=== PATIENT | male | born 1970 | race Caucasian/White ===

== ENCOUNTER 2018-01-24 22:58 | Emergency (ER) | payer MEDICARE, SELFPAY ==
[2018-01-24 22:59] VITALS: BP 179/102
[2018-01-24 23:01] VITALS: BP 162/96; PULSE 127; RESP 22; TEMP 37.4; O2SAT 92; BMI 47.7
[2018-01-24 23:06] VITALS: O2SAT 92
--- NOTE | 2018-01-24 23:15 | EKG12_ITS ---
Test Reason : SOB Blood Pressure : / mmHG Vent. Rate : 108 BPM Atrial Rate : 108 BPM P-R Int : 136 ms QRS Dur : 136 ms QT Int : 364 ms P-R-T Axes : 062 116 026 degrees QTc Int : 487 ms Sinus tachycardia Right bundle branch block Left posterior fascicular block Bifascicular block Septal infarct , age undetermined Abnormal ECG Confirmed by INES STEVENS, ADRY ([id number]), editor news ABRIL SOTO ([id number]) on 01/29/2018 2:47:48 PM Referred By: DR CLIFFORD Confirmed By:ADRY CHACON MD
--- NOTE | 2018-01-24 23:17 | RAD_ITS ---
STUDY: X-RAY CHEST REASON FOR EXAM: Male, 47 years old. Shortness of breath TECHNIQUE: A single frontal view of the chest was obtained. COMPARISON: November 16, 2017 FINDINGS: The lungs are adequately aerated. There are no focal airspace opacities. There is no demonstrated pleural abnormality. The cardiac silhouette is normal in size. The mediastinum and hilar regions are unremarkable. Normal visualized pulmonary arteries. Normal visualized aortic arch and descending thoracic aorta. The thoracic spine is unremarkable. The visualized ribs, clavicles, and shoulders are unremarkable. There is no demonstrated abnormality of the visualized upper abdomen. RAD/Chest 1 View (Portable) IMPRESSION: No acute cardiopulmonary abnormalities or changes. Electronically Signed: Jacque Benz MD at 23:34 EST Tel Direct: [phone], Service support ,
[2018-01-24] MEDS: MethylPREDNISolone 125 MG/2 ML Vial IV (23:37)
[2018-01-24 23:46] LABS: Absolute Lymphocyte Count 2.39 X10^3/ul (0.83-4.51); Absolute Neutrophil Count 10.1 X10^3/uL (2.0-7.7); Basophil# 0.04 X10^3/uL; Basophil% 0.3 % (0-1); Eosinophil# 0.44 X10^3/uL; Eosinophils% 3.1 % (0-5); Hemoglobin 14.5 g/dl (13.0-16.5); Lymphocyte # 2.39 X10^3/ul (4.0); Lymphocyte % 16.9 % (19-41); Mean Corp Hgb Conc 31.5 g/gl (32-36); Mean Corpuscular Hgb 31.9 pg (27.0-32.0); Mean Corpuscular Volume 101.3 fL (80-94); Mean Platelet Vol. 10.4 fl (6.2-12.0); Monocyte# 1.01 X10^3/uL; Monocyte% 7.1 % (0-10); Neutrophil # 10.12 X10^3/uL (2.7-7.7); Neutrophil % 71.5 % (47-70); POSITIVE COUNT NO; POSITIVE DIFFERENTIAL NO; POSITIVE MORPHOLOGY NO; Platelet Count 205 K/mm3 (150-450); RBC Distribution Width CV 14.9 % (11.6-14.6); RBC Distribution Width SD 54.8 fl (35.1-43.9); Red Blood Count 4.54 M/mm3 (4.6-6.2); White Blood Count 14.2 K/mm3 (4.4-11.0)
--- NOTE | 2018-01-25 | ED.RN ---
dr foster notified of critical d-dimer 0.70
[2018-01-25 00:02] LABS: Anion Gap 5 (5-15); BUN 11 mg/dL (7-18); BUN/Creat Ratio 13.8 RATIO (10-20); Calcium,Total 8.8 mg/dL (8.5-10.1); Chloride 102 mmol/L (98-107); EST Glomerular Filtration Rate 109 mL/min (>60); Est Glom Filt Rate - Afr Amer 132 mL/min (>60); Estimated Creatinine Clearance 118.96 ml/min; Glucose 124 mg/dL (74-106); Potassium 4.3 mmol/L (3.5-5.1); Sodium Level 138 mmol/L (136-145)
--- NOTE | 2018-01-25 00:05 | CT_ITS ---
STUDY: CTA CHEST REASON FOR EXAM: Male, 47 years old. Shortness of breath and hypertension. Elevated d-dimer. RADIATION DOSAGE (If Supplied By Facility): CTDIvol = ( 16.73 ) mGy, DLP = ( 809.73 ) mGycm TECHNIQUE: The examination was performed with the intravenous administration of 100ML ml of Isovue 370 contrast material. Post-processing of the angiographic images was performed, with multiplanar reformation and 3D reconstruction. Individualized dose optimization techniques were used for this CT. COMPARISON: None. FINDINGS: Normal enhancement of the main pulmonary artery and right and left pulmonary arteries. Normal enhancement of the bilateral peripheral pulmonary arteries. There is no demonstrated pulmonary embolism. Normal thoracic aorta and visualized great vessels. There is no demonstrated aortic dissection. Normal heart and pericardium. Normal mediastinum. Normal hilar regions. Normal visualized trachea and bronchi. The lungs are well expanded. Normal pulmonary parenchyma. Normal pleura. Normal chest wall structures. The osseous structures are essentially unremarkable. Normal visualized upper abdomen. CT/CTA Chest W/WO Contrast IMPRESSION: Normal CTA chest examination, without a demonstrated pulmonary embolism or aortic dissection. No infiltrate is seen. Electronically Signed: Rafa Quiros MD at 1:20 EST Tel , Service support ,
[2018-01-25 00:14] VITALS: BP 138/95; PULSE 108; RESP 24; O2SAT 96
--- NOTE | 2018-01-25 01:48 | ED.VISSUMM ---
- ER Visit Summary Date of Service: 01/25/18 Chief Complaint: Shortness of breath History of Present Illness: The patient is a 47 M with history of COPD flare. Patient states tonight he was short of breath and wheezing. His finger pulse ox at home read a heart rate in the 160s and an SPO2 in the 40s. states that he looked blue and was sweaty. Patient reports improvement at this time. He did breathing treatments at home and states his breathing was improved before EMS arrived. He did not have chest pain with this episode. Patient states that the squad one bring him in because his blood pressure was elevated. Past history significant for asthma, COPD, hypertension, pulmonary hypertension, anxiety, depression, and prior PE. Patient does use home oxygen as needed. He has not had recent fever. Physical Examination: Blood pressure is 162/96, temperature 99.4, heart rate 127, respiratory rate 22, pulse ox 92% on room air. He is 94% on 3 L at the time of my examination. Head and neck examination is unremarkable. Heart is tachycardic and regular. Lung sounds are slightly diminished throughout. I do not appreciate any wheezing at this time. Abdomen is soft nontender. Palpable pulses are noted throughout. Test Results: Portable chest x-ray reveals no acute changes. EKG is sinus tach at 108 with a bifascicular block. This is unchanged when compared to prior study of 11/16/2017. CBC reveals a white count of 14.2 otherwise normal. Chemistry studies are significant only for glucose of 124. Troponin is less than 0.02 and d-dimer slightly elevated at 0.70. CTA of the chest was obtained that shows no evidence of PE, dissection, or infiltrate. Emergency Department Course and Treatment: Patient was given a dose of IV Solu-Medrol here. He denied the need for further breathing treatments at this time stating his breathing was back to baseline. On repeat evaluation is resting comfortably. Heart rate is down to 100. Blood pressure is still elevated but the patient now tells me he was due for 2 of his blood pressure medications a couple hours ago. He is given his evening dose of Lopressor and Spironolactone prior to discharge. Treatment Plan: [] Disposition: Discharge Impression: COPD exacerbation This note was generated with [employer] dictation software. It may contain incorrect words, spelling, and punctuation that were not noted in review of the chart prior to signing ED Disposition - Plan for ED Patient: Disposition: Home or Assisted Living Chief Complaint: Shortness of Breath Instructions: ED COPD Flare Prescriptions: Prednisone 10 mg PO DAILY #63 tablet Referrals: Yumi Peralta MD [Primary Care Provider] - 3-5 Days if not improving
[2018-01-25] MEDS: Metoprolol Tartrate 25 MG Tablet PO (02:08)
[2018-01-25] MEDS: Spironolactone 25 MG Tablet PO (02:08)
[2018-01-25 02:12] VITALS: BP 192/112; PULSE 101; RESP 20; O2SAT 94
== END 2018-01-25 02:13 | disposition home or self-care (01) ==
PROVIDERS: Emergency Provider Emergency Medicine; Family Provider Family Medicine; PCP Family Medicine
DX: J44.1 Chronic obstructive pulmonary disease with (acute) exacerbation (principal); I10 Essential (primary) hypertension; I27.20 Pulmonary hypertension, unspecified; Z86.711 Personal history of pulmonary embolism; Z99.81 Dependence on supplemental oxygen; E66.9 Obesity, unspecified; Z68.42 Body mass index [BMI] 45.0-49.9, adult; Z87.891 Personal history of nicotine dependence; Z79.899 Other long term (current) drug therapy; Z79.82 Long term (current) use of aspirin
CPT/HCPCS: 71045; 71275; 80048; 84484; 85025; 85379; 93005; 96374; 99285; Q9967; A4216

== ENCOUNTER → 2018-06-17 10:48 | Outpatient (CLI) | payer MEDICARE, SELFPAY ==
[2018-06-17 11:35] VITALS: PULSE 101; PULSE 107; PULSE 108; PULSE 112; PULSE 114; PULSE 121; PULSE 92; PULSE 98; O2SAT 85; O2SAT 87; O2SAT 90; O2SAT 91; O2SAT 92; O2SAT 94; O2SAT 96
--- NOTE | 2018-06-17 11:40 | CPS ---
Patient wears 3 lpm pulse dose at home when ambulating. Started testing on room air SpO2 91%. SpO2 85% by the first minute, stopped patient and placed on 3lpm pulse dose, patient recovered quickly to 91%. 3rd minute SpO2 87%, patient turned tank up to 4 lpm pulse dose and walked the remainder of the test with SpO2 >89%. Patient recovered at the end to 96% which he then turned his tank back down to 3 lpm pulse dose due to being a CO2 retainer. Patient seems very knowledgeable about his SpO2 levels and regulation of O2 when needed. Patient's heart rate also climbed to 136 after he stopped walking and then recovered to 101.
--- NOTE | 2018-06-17 15:10 | WT_ITS ---
PSN 6 Minute Walk Test - 6 Minute Walk Test 6 Minute Walk Test: 6 Minute Walk Test PSN:6-Minute Walk Test Start: 06/17/18 11: 34 Freq: Status: Active Protocol: RESP.6MINW Document 06/17/18 11:35 RADHA (Rec: 06/17/18 11:37 RADHA [id number]) 6 Minute Walk Test Date Performed 06/17/18 Time Performed 11:15 Height 6 ft Weight: 158.757 kg Weight in Pounds 350.[address]: Tay Benavides Assistive device used: None Pre-test Oxygen Delivery Method Room Air Pulse Ox (%) 91 Pulse Rate (60-100 beats/min) 98 Dyspnea Emmy Scale (0-10) 0 Exertion Emmy Scale (6-20) 6 1st minute Oxygen Delivery Method Room Air Pulse Ox (%) 85 Pulse Rate (60-100 beats/min) 107 H 2nd minute Oxygen Flow Rate (L/min) (L/min) 3 Oxygen Delivery Method Nasal Cannula Pulse Ox (%) 90 Pulse Rate (60-100 beats/min) 92 3rd minute Oxygen Flow Rate (L/min) (L/min) 3 Oxygen Delivery Method Nasal Cannula Pulse Ox (%) 87 Pulse Rate (60-100 beats/min) 114 H 4th minute Oxygen Flow Rate (L/min) (L/min) 4 Oxygen Delivery Method Nasal Cannula Pulse Ox (%) 94 Pulse Rate (60-100 beats/min) 112 H 5th minute Oxygen Flow Rate (L/min) (L/min) 4 Oxygen Delivery Method Nasal Cannula Pulse Ox (%) 92 Pulse Rate (60-100 beats/min) 108 H 6th minute Oxygen Flow Rate (L/min) (L/min) 4 Oxygen Delivery Method Nasal Cannula Pulse Ox (%) 91 Pulse Rate (60-100 beats/min) 121 H Dyspnea Emmy Scale (0-10) 3 Exertion Emmy Scale (6-20) 12 Post-test Oxygen Flow Rate (L/min) (L/min) 4 Oxygen Delivery Method Nasal Cannula Pulse Ox (%) 96 Pulse Rate (60-100 beats/min) 101 H Full Laps Walked 15 Partial Lap, Number of Tiles Walked 10 Total Distance Walked (ft) 895 06/17/18 11:40 Cardiopulmonary Services by Dorota Guzman Patient wears 3 lpm pulse dose at home when ambulating. Started testing on room air SpO2 91%. SpO2 85% by the first minute, stopped patient and placed on 3lpm pulse dose, patient recovered quickly to 91%. 3rd minute SpO2 87%, patient turned tank up to 4 lpm pulse dose and walked the remainder of the test with SpO2 >89%. Patient recovered at the end to 96% which he then turned his tank back down to 3 lpm pulse dose due to being a CO2 retainer. Patient seems very knowledgeable about his SpO2 levels and regulation of O2 when needed. Patient's heart rate also climbed to 136 after he stopped walking and then recovered to 101. Initialized on 06/17/18 11:40 - END OF NOTE - Interpretation Interpretation: The patient was able to ambulate a total of 895 feet over the course of 6 minutes with no assistance or breaks. The patient was noted to be 91% on room air, but desaturated to 85% in the first minute. The patient required a total of 4 L pulse dose to maintain acceptable saturations throughout ambulation. Patient did have significant tachycardia with a peak heart rate of 121 bpm. These findings are consistent with a respiratory limitation exercise tolerance. - Recommendations Recommendations: The patient requires no supplemental oxygen at rest, but should be using 4 L pulse dose with any ambulation.
== END ==
LOC: PSN 10:49
PROVIDERS: Family Provider Family Medicine; PCP Family Medicine; Visit Provider Internal Medicine Critical Care Medicine
DX: J96.01 Acute respiratory failure with hypoxia (principal); J96.02 Acute respiratory failure with hypercapnia
CPT/HCPCS: 94618

== ENCOUNTER → 2018-06-21 07:50 | Outpatient (CLI) | payer MEDICARE, SELFPAY ==
--- NOTE | 2018-06-21 15:26 | PFTCOMP_ITS ---
COMPLETE PULMONARY FUNCTION TEST INTERPRETATION Brief HPI: Patient is a 47 year old male, currently under the care of myself, who presents to [facility] for complete pulmonary function tests secondary to diagnosis of respiratory failure. Respiratory therapist reports good effort and reproducible results. Interpretation: Forced expiration spirometry shows a very severe large airways obstructive ventilatory defect with an FEV1 of 23% predicted. There is no significant bronchodilator response by ATS criteria. Spirograms are of good quality and plateau slowly, indicating slowly emptying areas of the lungs. The respiratory flow volume loop shows decreased expiratory flow rates at all lung volumes consistent with airway obstruction. Lung volumes by body plethysmography show a decreased total lung capacity at 5.47 L, 75% predicted. FRC and RV are elevated out of proportion. Lung volume measurements are consistent with air-trapping. Diffusion capacity by carbon monoxide is decreased at 51% predicted. The airway resistance is elevated. Compared to previous pulmonary function tests from July 28, 2016, there has been no significant change. Impression: Irreversible very severe mixed ventilatory defect with no significant ticket dispenser changer the last 2 years.
== END ==
LOC: PSN 07:51
PROVIDERS: Family Provider Family Medicine; PCP Family Medicine; Visit Provider Internal Medicine Critical Care Medicine
DX: J96.01 Acute respiratory failure with hypoxia (principal); J96.02 Acute respiratory failure with hypercapnia
CPT/HCPCS: 94060; 94726; 94729

== ENCOUNTER 2018-09-18 05:24 | Day surgery (SDC) | payer MEDICARE, SELFPAY ==
--- NOTE | 2018-09-16 12:54 | EKG12_ITS ---
Test Reason : PREOP Blood Pressure : / mmHG Vent. Rate : 085 BPM Atrial Rate : 085 BPM P-R Int : 160 ms QRS Dur : 128 ms QT Int : 380 ms P-R-T Axes : 072 093 050 degrees QTc Int : 452 ms Normal sinus rhythm Right bundle branch block Septal infarct , age undetermined, cannot be excluded Abnormal ECG Confirmed by JOHNIE STEVENS, KANDACE ([id number]), make up editor ABRIL SOTO ([id number]) on 09/18/2018 1:36:42 PM Referred By: Gagan Andino Confirmed By:KANDACE JETT MD
--- NOTE | 2018-09-16 13:15 | RAD_ITS ---
STUDY: X-RAY CHEST REASON FOR EXAM: Male, 47 years old. Preoperative evaluation. TECHNIQUE: PA and lateral views of the chest. COMPARISON: Comparison is made with prior examination dated January 24, 2018. FINDINGS: Hyperinflation. There is no demonstrated pleural abnormality. Normal size heart. Normal mediastinum and lani. There is prominence of the pulmonary hilar arteries without peripheral pulmonary vascular congestion, suggesting pulmonary hypertension. Normal visualized aortic arch and descending thoracic aorta. There is demineralization of the osseous structures. Normal visualized ribs, clavicles, and shoulders. There is no demonstrated abnormality of the visualized soft tissue structures of the upper abdomen. RAD/Chest PA and Lateral IMPRESSION: Hyperinflation. Prominence of the central pulmonary arteries. Electronically Signed: Arsenio Funk MD at 13:39 EDT Tel [phone], Service support ,
[2018-09-16 13:30] LABS: Hematocrit 52.8 % (40-54); Hemoglobin 16.7 g/dl (13.0-16.5); Mean Corp Hgb Conc 31.6 g/gl (32-36); Mean Corpuscular Hgb 32.2 pg (27.0-32.0); Mean Corpuscular Volume 101.9 fL (80-94); Mean Platelet Vol. 10.8 fl (6.2-12.0); Platelet Count 197 K/mm3 (150-450); RBC Distribution Width CV 13.8 % (11.6-14.6); RBC Distribution Width SD 51.9 fl (35.1-43.9); Red Blood Count 5.18 M/mm3 (4.6-6.2); White Blood Count 12.7 K/mm3 (4.4-11.0)
[2018-09-16 13:42] LABS: Anion Gap 6 (5-15); BUN 12 mg/dL (7-18); BUN/Creat Ratio 15.3 RATIO (10-20); Calcium,Total 8.8 mg/dL (8.5-10.1); Chloride 98 mmol/L (98-107); Creatinine, Serum 0.78 mg/dL (0.70-1.30); EST Glomerular Filtration Rate 111 mL/min (>60); Est Glom Filt Rate - Afr Amer 135 mL/min (>60); Glucose 84 mg/dL (74-106); Potassium 4.3 mmol/L (3.5-5.1); Sodium Level 138 mmol/L (136-145)
[2018-09-16 13:45] LABS: Scan Indicated on CBC? Y/N NO
--- NOTE | 2018-09-18 | HERN_PTH ---
PATIENT: HARJIT ALBERTS LOC: [facility] [place] U#:[id number] AGE/SX: 47/M ROOM: RE09/18/[address]: Dr. Gagan Andino MD : [id number] BED: DIS: 09/18/2018 SPEC #: [id number] RECD: 09/18/18 11:42 STATUS: YAMILKA EMILE #: [id number] PURNIMA: 09/18/18 00:[address]: Gagan Andino DEPT: SURGICAL PATHOLOGY RECD BY: Casa Garcia ENTERED: 09/19/18 06:51 SP TYPE: Hernia OTHR DR: MD Dr. Yumi Alonzo MD Tissues: HERNIA Procedures: Surgery Specimen Level II HEADER OPERATION: Umbilical hernia with mesh PRE-OP DIAGNOSIS: Incarcerated umbilical hernia TISSUE SUBMITTED: Umbilical hernia sac and contents MICROSCOPIC DIAGNOSIS Umbilical hernia sac and contents: A piece of adipose tissue including omentum, consistent with hernia sac and contents with focal areas of fat necrosis and reactive changes. LOREE:khari 09/19/18 MICROSCOPIC DESCRIPTION Slides are reviewed. GROSS DESCRIPTION Received in fixative is one container labeled with the patient's name and designated umbilical hernia sac and contents. The specimen consists of a piece of yellow adipose tissue measuring 7 x 5 x 3.5 cm. A focal area of adipose tissue is consistent with omentum. The focal area shows indurated cut surfaces consistent with fat necrosis. This indurated nodule measures 3.5 cm in greatest dimension. Sections of the omental tissue do not reveal any mass lesion. Hand Stamper sections are submitted in five cassettes as follows: 1-3 - area consistent with fat necrosis, 4 - omentum, 5 - fraud representative section from the other area. / LOREE:khari 09/18/18 TC:5 [facility]: [id number]
[2018-09-18 05:48] VITALS: BP 137/78; PULSE 78; RESP 18; TEMP 36.9; O2SAT 94; BMI 45.8
--- NOTE | 2018-09-18 06:59 | PCM.DC.GS ---
Discharge Diet: Light diet - advance as tolerated - if you have questions about your diet instructions, please talk to you doctor. Discharge Activity: May Not Drive - for 1 week or while taking narcotic pain medicine. May shower in (days): 1 Lifting Restrictions: 10 pounds Call your doctor if your incision/area has: Continuous Slow Oozing, Sudden Increased Bleeding, Increased Pain/ Swelling, Increased Redness, Foul Smelling Discharge Call your doctor if you observe: Fever of 101 or Higher Suture Line Care: Avoid Pulling/Pushing, Avoid Pinching/Bending Additional Dressing/Incision Instructions:: Change or remove dressing in 4 days. Leave steri-strips in place for 1 week. Allergies/Adverse Reactions: Allergies clarithromycin [From Biaxin] Allergy (Verified 09/13/18 15:11) Hives Penicillins Allergy (Verified 09/13/18 15:11) Hives Medications to take at Discharge Aspirin [Aspirin, Baby] 81 mg PO DAILY 12/02/15 Furosemide [Lasix] 40 mg PO DAILY 12/02/15 Spironolactone [Aldactone] 25 mg PO BID 12/02/15 Cyanocobalamin (Vitamin B-12) [Vitamin B12] 1,000 mcg PO DAILY 07/29/17 Cholecalciferol (Vitamin D3) [Vitamin D3] 5,000 unit PO X1 11/16/17 Multivitamin [Multiple Vitamins] 1 ea PO DAILY 11/16/17 loratadine 10 mg tablet 10 mg PO QDAY #90 tab 12/07/17 albuterol sulfate HFA 90 mcg/actuation aerosol inhaler 2 puff INHALATION Q4H PRN #18 g 01/30/18 tiotropium bromide 18 mcg capsule with inhalation device 18 mcg INHALATION PRN PRN 02/21/18 ipratropium-albuterol 0.5 mg-3 mg(2.5 mg base)/3 mL nebulization soln 3 ml INHALATION Q6HWA.RT #180 vial 04/25/18 montelukast 10 mg tablet 10 mg PO QPM #30 tab 05/24/18 albuterol sulfate 2.5 mg/3 mL (0.083 %) solution for nebulization 2.5 mg INHALATION Q4H PRN #180 ml 07/04/18 budesonide-formoterol HFA 160 mcg-4.5 mcg/actuation aerosol inhaler 2 puff INHALATION BID #3 device 08/26/18 metoprolol tartrate 25 mg tablet 25 mg PO 1830 tab 09/11/18 Guaifenesin [Guaifenesin ER] 1,200 mg PO Q12H PRN 09/13/18 Metoprolol Succinate 50 mg PO 0600 09/13/18 Prednisone 40 mg PO DAILY PRN 09/13/18 Hydrocodone Bitart/Apap 5-325 [Purlear 5MG-325MG] 1 tablet PO Q4H PRN PRN 3 Days #10 tablet 09/18/18 Nystatin Powder [Mycostatin Powder] 1 applic TOPICAL BID #1 bottle 09/18/18 The following prescriptions were given: Hydrocodone Bitart/Apap 5-325 [Purlear 5MG-325MG] 1 tablet PO Q4H PRN PRN 3 Days #10 tablet PRN Reason: Pain Nystatin Powder [Mycostatin Powder] 1 applic TOPICAL BID #1 bottle Primary Care Physician: Yumi Peralta MD [Primary Care Provider] - Test Results: Test results from this visit will be discussed in further detail at your follow-up appointment, if applicable. Please Follow Up With: Gagan Andino MD - [phone] When: Call to make an appointment to be seen in about 10 days.
--- NOTE | 2018-09-18 08:12 | PCM.OPRPT ---
Problem List (1) Incarcerated umbilical hernia Status: Acute Report of Operation Date of Procedure: 09/18/18 Pre-Operative Diagnosis: Incarcerated umbilical hernia Post-Operative Diagnosis: Same Surgery/Procedure Performed:: Umbilical herniorrhaphy with 8 cm Ventralex mesh Description of Surgical Findings:: Timeout and informed consent was obtained. 47-year-old gent was taken to the operating. He was placed on the table. He underwent general endotracheal intubation anesthesia. The abdomen sterilely prepped and draped. Clindamycin 900 mg given intravenously preoperatively. A transverse incision was made superior to the umbilicus sharp dissection carried down to Humphrey tissue that was densely incarcerated omentum within the umbilical hernia the sac was opened and the omentum out of be partially transected using 0 Vicryl ligatures. Patient is morbidly obese with a BMI of 45. Significant amount of fibrofatty tissue was encountered. Were needed hemostasis was stained with electrocautery and 3-0 Vicryl ligatures. The defect measures approximately 3 cm diameter. A 8 cm ventral X mesh was inserted. Lot number [id number]. Reference #[id number]. Expiry date 05/23/2020. Placed nicely within the abdomen seem to unfurl nicely. The tails were secured with interrupted 0 Nurolon. The fascia was closed with simple sutures of the same. Skin edges and subdermal tissues were approximated interrupted 4-0 Monocryl in a running septic or 4-0 Monocryl. Steri-Strips Telfa and OpSite dressings applied. The dragan-incisional area was anesthetized with 30 cc of 0.5% Marcaine. Sponge instrument and needle counts were reported to the surgeon be correct. Blood loss was minimal. He tolerated the procedure well was taken to the recovery area in sagittal condition without apparent complication. Specimens incarcerated hernia sac and contents. Drains none. Blood loss minimal. Gagan Andino M.D., F.A.C.S. Type of Anesthesia:: General Anesthesiologist: Nancy Mccartney
[2018-09-18] MEDS: Bupivacaine 0.5% PF 10 ML VIAL (08:14)
[2018-09-18 08:39] VITALS: BP 137/78; BP 138/88; PULSE 83; RESP 14; TEMP 36.5; O2SAT 91
[2018-09-18 09:00] VITALS: BP 128/88; BP 137/78; PULSE 79; RESP 18; O2SAT 92
[2018-09-18 09:13] VITALS: BP 129/85; BP 137/78; PULSE 79; RESP 18; O2SAT 92
[2018-09-18 09:30] VITALS: BP 136/83; BP 137/78; PULSE 79; RESP 18; TEMP 36.4; O2SAT 94
[2018-09-18] MEDS: HYDROcodone Bitartrate/Apap 5/325 Tablet PO (11:13)
[2018-09-18 12:35] VITALS: BP 137/78; BP 142/87; PULSE 78; RESP 16; TEMP 36.8; O2SAT 93
== END 2018-09-18 12:45 | disposition home or self-care (01) ==
LOC: SDC 05:25 → AC 05:28
PROVIDERS: Family Provider Family Medicine; PCP Family Medicine; Referring Provider Surgery; Visit Provider Surgery
PROC: (CPT 49587; principal; 2018-09-18 07:00)
DX: K42.0 Umbilical hernia with obstruction, without gangrene (principal); D75.1 Secondary polycythemia; I11.0 Hypertensive heart disease with heart failure; I50.9 Heart failure, unspecified; I45.10 Unspecified right bundle-branch block; I27.20 Pulmonary hypertension, unspecified; J43.9 Emphysema, unspecified; J96.21 Acute and chronic respiratory failure with hypoxia; J96.22 Acute and chronic respiratory failure with hypercapnia; J30.2 Other seasonal allergic rhinitis; G47.33 Obstructive sleep apnea (adult) (pediatric); E66.01 Morbid (severe) obesity due to excess calories; Z68.42 Body mass index [BMI] 45.0-49.9, adult; Z99.81 Dependence on supplemental oxygen; Z79.82 Long term (current) use of aspirin; Z79.899 Other long term (current) drug therapy; Z87.891 Personal history of nicotine dependence
CPT/HCPCS: 00750; 49587; 36415; 71046; 80048; 85027; 88302; 93005; J7120; C1781; J2405

== ENCOUNTER → 2018-10-14 14:22 | Outpatient (CLI) | payer MEDICARE, SELFPAY ==
[2018-10-21 16:12] LABS: Immunoglobulin E 269 IU/mL (0-100)
[2018-10-23 03:07] LABS: Bermuda Grass <0.10 kU/L (Class 0); Cat Hair/Dander, Standard <0.10 kU/L (Class 0); D farinae Mite 0.74 kU/L (Class II); Dog Epithelia <0.10 kU/L (Class 0); Elm, American White <0.10 kU/L (Class 0); Mouse Urine <0.10 kU/L (Class 0); Oak, White <0.10 kU/L (Class 0); Plantain, English 0.13 kU/L (Class 0/I)
== END ==
PROVIDERS: Family Provider Family Medicine; PCP Family Medicine; Referring Provider Nurse Practitioner Acute Care; Visit Provider Nurse Practitioner Acute Care
DX: J44.1 Chronic obstructive pulmonary disease with (acute) exacerbation (principal)
CPT/HCPCS: 36415; 82785; 86003; 87070; 87205

== ENCOUNTER → 2018-10-29 11:40 | Outpatient (CLI) | payer MEDICARE, SELFPAY ==
[2018-10-29 09:47] VITALS: BMI 45.6
[2018-10-29 12:22] LABS: Absolute Lymphocyte Count 2.31 X10^3/ul (0.83-4.51); Absolute Neutrophil Count 8.3 X10^3/uL (2.0-7.7); Basophil# 0.05 X10^3/uL; Basophil% 0.4 % (0-1); Eosinophil# 0.39 X10^3/uL; Eosinophils% 3.2 % (0-5); Hematocrit 53.6 % (40-54); Hemoglobin 17.4 g/dl (13.0-16.5); Lymphocyte # 2.31 X10^3/ul (4.0); Lymphocyte % 19.2 % (19-41); Mean Corp Hgb Conc 32.5 g/gl (32-36); Mean Corpuscular Hgb 32.6 pg (27.0-32.0); Mean Corpuscular Volume 100.4 fL (80-94); Mean Platelet Vol. 10.8 fl (6.2-12.0); Monocyte# 0.92 X10^3/uL; Monocyte% 7.7 % (0-10); Neutrophil # 8.28 X10^3/uL (2.7-7.7); Platelet Count 191 K/mm3 (150-450); RBC Distribution Width CV 13.6 % (11.6-14.6); RBC Distribution Width SD 50.4 fl (35.1-43.9); Red Blood Count 5.34 M/mm3 (4.6-6.2)
[2018-10-29 12:26] LABS: POSITIVE COUNT NO; POSITIVE DIFFERENTIAL NO; POSITIVE MORPHOLOGY NO
== END ==
PROVIDERS: Family Provider Family Medicine; PCP Family Medicine; Referring Provider Nurse Practitioner Acute Care; Visit Provider Nurse Practitioner Acute Care
DX: R05 Cough (principal)
CPT/HCPCS: 36415; 85025

== ENCOUNTER → 2019-04-10 13:35 | Outpatient (CLI) | payer MEDICARE, SELFPAY ==
[2019-04-10 12:34] VITALS: BMI 44.3
[2019-04-10 15:20] LABS: Absolute Lymphocyte Count 2.25 X10^3/ul (0.83-4.51); Absolute Neutrophil Count 9.3 X10^3/uL (2.0-7.7); Basophil# 0.05 X10^3/uL; Basophil% 0.4 % (0-1); Eosinophil# 0.41 X10^3/uL; Eosinophils% 3.1 % (0-5); Hematocrit 49.9 % (40-54); Hemoglobin 16.4 g/dl (13.0-16.5); Lymphocyte # 2.25 X10^3/ul (4.0); Lymphocyte % 17.3 % (19-41); Mean Corp Hgb Conc 32.9 g/gl (32-36); Mean Corpuscular Hgb 32.7 pg (27.0-32.0); Mean Corpuscular Volume 99.4 fL (80-94); Mean Platelet Vol. 11.1 fl (6.2-12.0); Monocyte# 1.03 X10^3/uL; Monocyte% 7.9 % (0-10); Neutrophil # 9.25 X10^3/uL (2.7-7.7); Neutrophil % 70.9 % (47-70); Platelet Count 229 K/mm3 (150-450); RBC Distribution Width CV 13.6 % (11.6-14.6); RBC Distribution Width SD 49.6 fl (35.1-43.9); Red Blood Count 5.02 M/mm3 (4.6-6.2)
[2019-04-10 16:07] LABS: POSITIVE COUNT NO; POSITIVE DIFFERENTIAL NO; POSITIVE MORPHOLOGY NO
== END ==
PROVIDERS: Family Provider Family Medicine; PCP Family Medicine; Referring Provider Nurse Practitioner Acute Care; Visit Provider Nurse Practitioner Acute Care
DX: R05 Cough (principal)
CPT/HCPCS: 36415; 85025

== ENCOUNTER → 2019-08-08 09:43 | Outpatient (CLI) | payer MEDICARE, SELFPAY ==
[2019-04-10 12:34] VITALS: BMI 44.3
[2019-04-17 09:39] VITALS: BMI 44.7
[2019-08-08 10:00] VITALS: PULSE 103; PULSE 117; PULSE 56; PULSE 79; PULSE 85; PULSE 88; PULSE 95; PULSE 97; O2SAT 83; O2SAT 86; O2SAT 90; O2SAT 91; O2SAT 93; O2SAT 94
--- NOTE | 2019-08-08 10:33 | CPS ---
Pt arrived on Room air sats 93%. At 2 minutes sats dropped to 83% placed on 2l nc and sats increased to 90%. At 4 min sats dropped to 86% so increased to 3l nc. sats increased to 90% on 3l.
--- NOTE | 2019-08-09 08:36 | PCM.PSN.6M ---
PSN 6 Minute Walk Test - 6 Minute Walk Test 6 Minute Walk Test: 6 Minute Walk Test PSN:6-Minute Walk Test Start: 08/08/19 10:29 Freq: Status: Active Protocol: RESP.6MINW Document 08/08/19 10:00 EW (Rec: 08/08/19 10:38 EW [id number]) 6 Minute Walk Test Date Performed 08/08/19 Time Performed 10:00 Height 6 ft Weight: 314 lb Weight in Pounds 314.[address]: Alesia Morales Assistive device used: None Pre-test Oxygen Delivery Method Room Air Pulse Ox (%) 93 Pulse Rate (60-100 beats/min) 56 L Dyspnea Emmy Scale (0-10) 1 Exertion Emmy Scale (6-20) 6 1st minute Oxygen Delivery Method Room Air Pulse Ox (%) 90 Pulse Rate (60-100 beats/min) 85 2nd minute Oxygen Delivery Method Room Air Pulse Ox (%) 83 Pulse Rate (60-100 beats/min) 95 3rd minute Oxygen Flow Rate (L/min) (L/min) 2 Oxygen Delivery Method Nasal Cannula Pulse Ox (%) 91 Pulse Rate (60-100 beats/min) 117 H 4th minute Oxygen Flow Rate (L/min) (L/min) 3 Oxygen Delivery Method Nasal Cannula Pulse Ox (%) 86 Pulse Rate (60-100 beats/min) 97 5th minute Oxygen Flow Rate (L/min) (L/min) 3 Oxygen Delivery Method Nasal Cannula Pulse Ox (%) 90 Pulse Rate (60-100 beats/min) 88 6th minute Oxygen Flow Rate (L/min) (L/min) 3 Oxygen Delivery Method Nasal Cannula Pulse Ox (%) 91 Pulse Rate (60-100 beats/min) 103 H Post-test Oxygen Flow Rate (L/min) (L/min) 3 Oxygen Delivery Method Nasal Cannula Pulse Ox (%) 94 Pulse Rate (60-100 beats/min) 79 Dyspnea Emmy Scale (0-10) 3 Exertion Emmy Scale (6-20) 13 Full Laps Walked 16 Partial Lap, Number of Tiles Walked 14 Total Distance Walked (ft) 958 08/08/19 10:33 Cardiopulmonary Services by Norah Escobar Pt arrived on Room air sats 93%. At 2 minutes sats dropped to 83% placed on 2l nc and sats increased to 90%. At 4 min sats dropped to 86% so increased to 3l nc. sats increased to 90% on 3l. Initialized on 08/08/19 10:33 - END OF NOTE - Interpretation Interpretation: The patient ambulated 958 feet over the course of 6 minutes beginning on room air without assistive devices or breaks. Pretesting oxygen saturation was noted to be 93% on room air. With ambulation, the patient desaturated on several occasions requiring a supplemental oxygen flow rate of 3 L/min to maintain appropriate saturations. - Recommendations Recommendations: 3 L/min of supplemental oxygen should be utilized with exertion.
== END ==
LOC: PSN 09:46
PROVIDERS: Family Provider Family Medicine; PCP Family Medicine; Referring Provider Nurse Practitioner Acute Care; Visit Provider Nurse Practitioner Acute Care
DX: J44.9 Chronic obstructive pulmonary disease, unspecified (principal)
CPT/HCPCS: 94618

== ENCOUNTER → 2019-08-12 08:01 | Outpatient (CLI) | payer MEDICARE, SELFPAY ==
[2019-04-10 12:34] VITALS: BMI 44.3
[2019-04-17 09:39] VITALS: BMI 44.7
--- NOTE | 2019-08-13 08:47 | PFT ---
INTRODUCTION: The patient is a 48-year-old male that presents for pulmonary function studies secondary to a diagnosis of COPD. Respiratory therapy reports good patient effort. Bronchodilators were used during testing. INTERPRETATION: Forced expiration spirometry demonstrates the presence of a very severe large airways obstructive ventilatory defect. There was no significant bronchodilator response. Spirograms are of fair quality and do not plateau indicating slow emptying of the lungs. Body plethysmography was performed and reveals an elevated RV to 194% of predicted, indicative of underlying air trapping. Diffusing capacity by single breath CO is reduced at 52% of predicted. IMPRESSION: Irreversible very severe large airways obstructive ventilatory defect with associated air trapping and reduction in diffusing capacity.
== END ==
LOC: PSN 08:01
PROVIDERS: Family Provider Family Medicine; PCP Family Medicine; Referring Provider Nurse Practitioner Acute Care; Visit Provider Nurse Practitioner Acute Care
DX: J44.9 Chronic obstructive pulmonary disease, unspecified (principal)
CPT/HCPCS: 94060; 94726; 94729

== ENCOUNTER → 2019-08-13 15:07 | Outpatient (CLI) | payer MEDICARE, SELFPAY ==
[2019-08-13 13:53] VITALS: BMI 43.5
[2019-08-13 15:24] LABS: Absolute Lymphocyte Count 2.17 X10^3/uL (0.83-4.51); Absolute Neutrophil Count 9.9 X10^3/uL (2.0-7.7); Basophil# 0.08 X10^3/uL; Basophil% 0.6 % (0-1); Eosinophils% 2.2 % (0-5); Hematocrit 50.3 % (40-54); Hemoglobin 16.3 g/dL (13.0-16.5); Lymphocyte # 2.17 X10^3/ul (4.0); Mean Corp Hgb Conc 32.4 g/dL (32-36); Mean Corpuscular Hgb 32.9 pg (27.0-32.0); Mean Corpuscular Volume 101.6 fL (80-94); Mean Platelet Vol. 10.2 fl (6.2-12.0); Monocyte# 0.98 X10^3/uL; Monocyte% 7.2 % (0-10); NRBC Flagged by Analyzer 0 % (0-5); Neutrophil # 9.94 X10^3/uL (2.7-7.7); Neutrophil % 73.2 % (47-70); Platelet Count 206 K/mm3 (150-450); RBC Distribution Width CV 13.1 % (11.6-14.6); RBC Distribution Width SD 49.1 fl (35.1-43.9); Red Blood Count 4.95 M/mm3 (4.6-6.2); White Blood Count 13.6 K/mm3 (4.4-11.0)
== END ==
PROVIDERS: Family Provider Family Medicine; PCP Family Medicine; Referring Provider Nurse Practitioner Acute Care; Visit Provider Nurse Practitioner Acute Care
DX: J45.50 Severe persistent asthma, uncomplicated (principal)
CPT/HCPCS: 36415; 85025

== ENCOUNTER → 2019-10-13 09:18 | Outpatient (CLI) | payer MEDICARE, SELFPAY ==
[2019-09-15 16:06] VITALS: BMI 44.0
[2019-10-13 09:28] VITALS: BP 152/78; PULSE 65; RESP 20; TEMP 36.6; O2SAT 93; BMI 42.5
[2019-10-13] MEDS: Mepolizumab 100 MG VIAL SQ (09:51)
[2019-10-13 10:06] VITALS: BP 129/68; PULSE 65; RESP 20; O2SAT 94
== END ==
LOC: MEDOUTP 09:19
PROVIDERS: Family Provider Family Medicine; PCP Family Medicine; Referring Provider Nurse Practitioner Acute Care; Visit Provider Nurse Practitioner Acute Care
DX: J45.50 Severe persistent asthma, uncomplicated (principal)
CPT/HCPCS: 96372; J2182

== ENCOUNTER → 2019-11-10 08:49 | Outpatient (CLI) | payer MEDICARE, SELFPAY ==
[2019-10-13 09:28] VITALS: BMI 42.5
[2019-11-10 09:02] VITALS: BP 126/71; PULSE 63; RESP 18; TEMP 36.4; O2SAT 96; BMI 43.4
[2019-11-10] MEDS: Mepolizumab 100 MG VIAL SQ (09:45)
[2019-11-10 10:20] VITALS: BP 124/69; PULSE 59; RESP 14; TEMP 36.4
== END ==
LOC: MEDOUTP 08:50
PROVIDERS: Family Provider Family Medicine; PCP Family Medicine; Visit Provider Nurse Practitioner Acute Care
DX: J45.50 Severe persistent asthma, uncomplicated (principal)
CPT/HCPCS: 96372; J2182

== ENCOUNTER → 2019-12-08 13:41 | Outpatient (CLI) | payer MEDICARE, SELFPAY ==
[2019-11-24 07:29] VITALS: BMI 44.7
[2019-12-08 13:50] VITALS: BP 135/81; PULSE 98; RESP 16; TEMP 35.8; O2SAT 94; BMI 44.3
[2019-12-08] MEDS: Mepolizumab 100 MG VIAL SQ (14:13)
[2019-12-08 14:40] VITALS: BP 121/84; PULSE 88; RESP 18
== END ==
PROVIDERS: Family Provider Family Medicine; PCP Family Medicine
DX: J45.50 Severe persistent asthma, uncomplicated (principal)
CPT/HCPCS: 96372; J7050; A4216; J2182

== ENCOUNTER 2020-01-08 14:38 | Emergency (ER) | payer MEDICARE, SELFPAY ==
[2019-12-08 13:50] VITALS: BMI 44.3
[2020-01-08 14:40] VITALS: BP 159/78; PULSE 68; RESP 17; TEMP 36.6; O2SAT 96; BMI 45.3
--- NOTE | 2020-01-08 15:07 | ED.DCSUM_ITS ---
History of Present Illness Chief Complaint: Lower Extremity Injury Informant: Patient Occurred: Days - 5 Mechanism/Context: Injury - blunt trauma, golf ball vs. right lower leg Onset: Days - 5 Context: Sudden Onset Timing: Continuous Quality of Pain: - - sore Location: right lower leg Current Severity: Moderate Maximum Severity: Severe Worsened by: weight bearing Relieved by: rest Associated Symptoms: Negative for: Parasthesia, Weakness, Loss of Funtion Narrative: Patient states 5 days ago he and some friends were hitting some golf balls in his backyard, someone else hit wine and it hit off of the post, ricocheted and hit him right in the leg. He sustained a hematoma there. He states it hurt pretty bad at that time but he iced it and rested, and it improved. The swelling went down. He never broke the skin or had any bleeding. He takes aspirin but no anticoagulation. 2 days ago, it started to feel little worse and he developed swelling distally in his foot downstream from the injury. The injured area is still sore, but is not hurting worse than it did 2 days ago. It is red around it, he states it is look that way or worse since the injury, and that has not been worsening. He went to urgent care today for the first evaluation of this injury, and they sent him to the ER concern for cellulitis because of the look/appearance of it. Patient has no systemic symptoms, fevers, or other injuries. He is otherwise been well lately. He has been able to walk. - Past Medical History (1) Severe persistent asthma Status: Chronic (2) COPD (chronic obstructive pulmonary disease) Status: Chronic (3) LAYLA (obstructive sleep apnea) Status: Chronic (4) Pulmonary HTN Status: Chronic Past Medical History - Allergies and Home Meds Allergies/Adverse Reactions: Allergies clarithromycin [From Biaxin] Allergy (Verified 01/08/20 14:39) Hives Penicillins Allergy (Verified 01/08/20 14:39) Hives Primary Care Physician: Yumi Peralta MD [Primary Care Provider] - Surgical History: herniorrhaphy, tonsillectomy Smoking Status: Former smoker Drugs: None - Family History Maternal Family History: Family History (Last Reviewed 11/24/19 @ 13:01 by Patria Casanova) Mother Diabetes Breast cancer Heart disease Hypertension COPD (chronic obstructive pulmonary disease) Asthma Father Hypertension CVA (cerebral vascular accident) Family History: Reports: COPD, Diabetes, Heart Disease, Hypertension Paternal Family History: Family History (Last Reviewed 11/24/19 @ 13:01 by Patria Casanova) Mother Diabetes Breast cancer Heart disease Hypertension COPD (chronic obstructive pulmonary disease) Asthma Father Hypertension CVA (cerebral vascular accident) Family History: Reports: Unknown Review of Systems General: Denies: Chills, Fever, Sweats Musculoskeletal: Reports: Swelling, Extremity Pain. Denies: Neck pain, Back pain Skin: Reports: Wounds Neurological: Denies: Headache, Weakness, Numbness Physical Exam Vital Signs/Narrative: Vital Signs Temp Pulse Resp BP Pulse Ox 01/08/20 14:40 97.9 F 68 17 159/78 H 96 Inital Vital Signs reviewed: Yes - Extremity Exam Right Knee: Negative for: Limited ROM Right Tib fib: Contusion - Right distal anterior lateral lower leg, at the junction of the middle and distal thirds. No crepitance or deformity. Erythematous and tender, no induration or abscess. No scabbing or obvious break in the skin. Consistent with blunt injury area. This area is basically in the area between the the anterior and fibular superficial compartments, between the fibula and the tibia. Full range of motion of the ankle without discomfort. All compartments soft., - - No palpable cords. No calf tenderness. Right Ankle: Edema - At right lateral malleolus and lateral/peroneal aspect of right foot. All nontender. No medial edema.. Negative for: Limited ROM General: Well nourished, Well developed, Obese Head: Normocephalic, Atraumatic Skin: Trauma - Right lower leg. See above. No breaks in the skin. No lymphangitis. Erythema around contusion. Neurological: Alert, Oriented x3, Cranial nerves II-XII grossly intact, Normal Strength, Normal Sensation Psychological: Normal affect, Normal Mood Diagnostic/Tx/Re-eval - Medical Decision Making Patient has persistent erythema since the injury at the area where he had a blunt injury. There was no break in the skin. I do not think this is cellulitis. Patient is in agreement. I suspect the dependent swelling in the peroneal aspect of his ankle and foot is dependent from the hematoma that probably was at the location of the injury, due to gravity. I obtained an x- ray, it shows no fractures. He is reassured and advised to continue watching it. If he has any spreading of redness or enlarging of the redness, so far which has not happened in 5 days, I advise returning for reevaluation. ED Disposition - Plan for ED Patient: Disposition: Home or Assisted Living Diagnosis: Traumatic hematoma of right lower leg Instructions: Hematoma Referrals: Yumi Peralta MD [Primary Care Provider] - 10-14 Days if not better
--- NOTE | 2020-01-08 15:20 | RAD_ITS ---
STUDY: X-RAY - RIGHT TIBIA AND FIBULA REASON FOR EXAM: Male, 49 years old. INCREASED REDNESS, WARMTH, AND PAIN IN DISTAL RIGHT LOWER LEG S/P BEING HIT BY GOLF BALL X4 DAYS AGO TECHNIQUE: 4 view(s) of the tibia and fibula were obtained. COMPARISON: None. FINDINGS: Normal visualized tibia. Normal visualized fibula. Soft tissue swelling. RAD/Tibia & Fibula 2 Views IMPRESSION: Soft tissue swelling. Electronically Signed: Arsenio Funk, at 15:38 EST , Service support ,
[2020-01-08 16:08] VITALS: RESP 20
== END 2020-01-08 16:09 | disposition home or self-care (01) ==
LOC: ED 15:57
PROVIDERS: Emergency Provider Emergency Medicine; PCP Family Medicine
DX: S80.11XA Contusion of right lower leg, initial encounter (principal); W21.04XA Struck by golf ball, initial encounter; Y93.53 Activity, golf; Y92.007 Garden or yard of unspecified non-institutional (private) residence as the place of occurrence of the external cause; Y99.8 Other external cause status; J44.9 Chronic obstructive pulmonary disease, unspecified; J45.50 Severe persistent asthma, uncomplicated; I27.20 Pulmonary hypertension, unspecified; Z79.82 Long term (current) use of aspirin; Z87.891 Personal history of nicotine dependence
CPT/HCPCS: 73590; 99282

== ENCOUNTER 2020-01-10 16:59 | Inpatient (IN) | payer MEDICARE, SELFPAY ==
[2020-01-10] VITALS (9 sets, daily range): BP systolic 112–151; BP diastolic 69–95; PULSE 79–112; RESP 16–20; TEMP 36.8–37.2; O2SAT 90–95; BMI 44.7; BMI 46.0
--- NOTE | 2020-01-10 17:23 | ED.VIS.GEN ---
History of Present Illness Chief Complaint: Cellulitis Informant: Patient Current Severity: Moderate Maximum Severity: Moderate Narrative: Patient presents with right lower extremity redness and swelling. He was hit by a golf ball 1 week ago, he has had swelling and a hematoma but over the past 2 days he is noticed redness increased pain and increased calor in that region. He denies fevers or chills he denies abdominal pain he denies cough congestion or shortness of breath he has no urinary symptoms he has no other sources of infection. Past Medical History - Allergies and Home Meds Allergies/Adverse Reactions: Allergies clarithromycin [From Biaxin] Allergy (Verified 01/10/20 17:00) Hives Penicillins Allergy (Verified 01/10/20 17:00) Hives Primary Care Physician: Yumi Peralta MD [Primary Care Provider] - Past Medical History: - - Hypertension, COPD, pulmonary artery hypertension Surgical History: herniorrhaphy, tonsillectomy Smoking Status: Former smoker - Family History Maternal Family History: Family History (Last Reviewed 11/24/19 @ 13:01 by Patrai Casanova) Mother Diabetes Breast cancer Heart disease Hypertension COPD (chronic obstructive pulmonary disease) Asthma Father Hypertension CVA (cerebral vascular accident) Family History: Reports: COPD, Diabetes, Heart Disease, Hypertension Paternal Family History: Family History (Last Reviewed 11/24/19 @ 13:01 by Patria Casanova) Mother Diabetes Breast cancer Heart disease Hypertension COPD (chronic obstructive pulmonary disease) Asthma Father Hypertension CVA (cerebral vascular accident) Family History: Reports: Unknown Review of Systems All systems negative except as indicated General: Denies: Fever Cardiovascular: Denies: Chest pain Respiratory: Denies: Dyspnea, Cough Gastrointestinal: Denies: Abdominal pain, Nausea, Vomiting Genitourinary: Denies: Dysuria Musculoskeletal: Denies: Myalgias, Arthralgias Skin: Denies: Rash Neurological: Denies: Headache, Weakness Psych: Denies: Depression Hematologic: Denies: Easy bruising, Easy bleeding Physical Exam Vital Signs/Narrative: Vital Signs Temp Pulse Resp BP Pulse Ox 01/10/20 17:00 99 F 112 H 20 H 151/95 H 90 Inital Vital Signs reviewed: Yes General: Well nourished, Well developed, Obese Head: Normocephalic, Atraumatic ENT: Moist mucous membranes Cardiovascular: Regular rate, Regular rhythm, No murmurs Respiratory: No distress, CTA bilaterally Abdomen: Soft, Nontender, Nondistended Back: Nontender, Normal Inspection. Negative for: CVA tenderness Extremities: - - Patient has a anterior blanchard hematoma about 6 cm, there is surrounding cellulitis up to the knee. No crepitus. Distal pulses intact Neurological: Normal Strength, Normal Sensation Psychological: Normal affect ED Disposition - Plan for ED Patient: Referrals: Yumi Peralta MD [Primary Care Provider] -
[2020-01-10 17:56] LABS: Absolute Neutrophil Count 11.8 X10^3/uL (2.0-7.7); Basophil# 0.08 X10^3/uL; Basophil% 0.5 % (0-1); Eosinophil# 0.06 X10^3/uL; Eosinophils% 0.4 % (0-5); Hematocrit 51.4 % (40-54); Hemoglobin 16.3 g/dL (13.0-16.5); Lymphocyte % 12.8 % (19-41); Mean Corp Hgb Conc 31.7 g/dL (32-36); Mean Corpuscular Hgb 32.1 pg (27.0-32.0); Mean Corpuscular Volume 101.4 fL (80-94); Mean Platelet Vol. 10.5 fl (6.2-12.0); Monocyte% 6.7 % (0-10); NRBC Flagged by Analyzer 0 % (0-5); Neutrophil # 11.77 X10^3/uL (2.7-7.7); Platelet Count 201 K/mm3 (150-450); RBC Distribution Width CV 13.2 % (11.6-14.6); RBC Distribution Width SD 49.3 fl (35.1-43.9); Red Blood Count 5.07 M/mm3 (4.6-6.2); White Blood Count 14.9 K/mm3 (4.4-11.0)
[2020-01-10 18:12] LABS: ALB/GLOB Ratio 0.8 RATIO (0.9-2.4); AST(SGOT) 17 U/L (15-37); Alanine Aminotransfer ALT/SGPT 30 U/L (16-61); Albumin, Serum 3.2 g/dL (3.2-5.0); Alkaline Phosphatase 83 U/L (45-117); Anion Gap 2 (5-15); BUN 13 mg/dL (7-18); BUN/Creat Ratio 16.1 RATIO (10-20); Calcium,Total 9.1 mg/dL (8.5-10.1); Chloride 103 mmol/L (98-107); Creatinine, Serum 0.81 mg/dL (0.70-1.30); EST Glomerular Filtration Rate 107 mL/min (>60); Est Glom Filt Rate - Afr Amer 129 mL/min (>60); Estimated Creatinine Clearance 118.42 ml/min; Globulin 3.9 g/dL (2.2-4.2); Glucose 157 mg/dL (74-106); Potassium 3.9 mmol/L (3.5-5.1); Protein, Total 7.1 g/dL (6.4-8.2); Sodium Level 140 mmol/L (136-145)
[2020-01-10] MEDS: Ondansetron 4 MG/2 ML Vial IV (18:20)
[2020-01-10] MEDS: Morphine 4 MG/ML Syringe IV (18:20)
--- NOTE | 2020-01-10 20:12 | HP.PCM_ITS ---
Problem List (1) Cellulitis and abscess of right leg Status: Acute (2) Acute sinusitis Status: Resolved Qualifiers: Sinusitis location: maxillary Recurrence: non-recurrent Qualified Code(s): J01.00 - Acute maxillary sinusitis, unspecified (3) Severe persistent asthma Status: Chronic (4) History of hernia repair Status: Resolved (5) Incarcerated umbilical hernia Status: Resolved (6) History of tooth extraction Status: Resolved (7) History of tonsillectomy Status: Resolved (8) Chronic respiratory failure with hypoxia Status: Chronic (9) Stage 4 very severe COPD by GOLD classification Status: Chronic Comment: FEV1 23% of predicted (10) LAYLA (obstructive sleep apnea) Status: Chronic (11) Hx of cardiac cath Status: Chronic Comment: 12/2015 (12) Chronic hypoxemic respiratory failure Status: Chronic (13) Seasonal allergies Status: Chronic (14) Pneumonia Status: Resolved (15) Stage 4 very severe COPD by GOLD classification Status: Chronic (16) Acute respiratory failure with hypoxia and hypercapnia Status: Resolved (17) Obesities, morbid Status: Chronic (18) Pulmonary HTN Status: Chronic (19) HTN (hypertension) Status: Chronic Qualifiers: Hypertension type: essential hypertension Qualified Code(s): I10 - Essential (primary) hypertension (20) Metabolic alkalosis Status: Chronic (21) Hyperglycemia Status: Acute Comment: with no hx of DM II History of Present Illness Date of Admission: 01/10/20 Chief Complaint: Pain, redness and swelling of the right lower extremity The patient is a 49 year old M with a history of severe Gold class IV COPD, chronic respiratory failure with hypoxemia and hypercarbia, chronic metabolic alkalosis, morbid obesity, hypertension, pulmonary hypertension, ongoing tobacco dependence, anxiety and LAYLA who presented to the ED at [facility] on 01/10/20 compl aining of swelling, redness and increasing pain in the right lower extremity. He had been hitting some golf balls in his yard approximately 1 week ago and was hit in the right lower leg with a golf ball. He sustained a bruise. It has become increasingly painful and red. He denies fevers and chills. He has nevere had a venous stasis ulcer and he denies any hx of MSSA or MRSA infection. He lists PCN as an allergy but, does not know the reaction. Vital signs at presentation to the emergency room were 9 ?F, pulse rate 112, blood pressure 151/95, respiratory rate 20 and he was 90% saturated on room air and 94% saturated on a 2 L nasal cannula. The white blood cell count is 14.9 with 79% neutrophils. Hemoglobin is 16.3 with an MCV of 101.4. Platelets are within normal limits. The serum bicarb is elevated at 35 which is actually lower than it usually is. LFTs are unremarkable. A random blood sugar was 157. He had a right tib-fib x-ray on 01/08/[address] Parker and it showed soft tissue swelling only. He is being admitted to the hospital with a diagnosis of cellulitis with suspected abscess distal R LE. He continues to smoke despite having severe COPD and being on oxygen. He has stopped several times but, he starts again when he becomes anxious. He tells me he is on Wellbutrin which is actually a pure antidepressant and can make anxiety worse. We had a discussion with him about this and I recommended he consider getting off Wellbutrin and starting an SSRI or BuSpar to help with anxiety and increase his chance of smoking cessation forever. He was agreeable to starting Sertraline in the hospital. Past Medical History Past Medical History (Chronic Problems): Chronic Problems (Last Reviewed 11/24/19 @ 13:00 by Patria Casanova) Metabolic alkalosis (Chronic) Severe persistent asthma (Chronic) Chronic respiratory failure with hypoxia (Chronic) Stage 4 very severe COPD by GOLD classification (Chronic) FEV1 23% of predicted LAYLA (obstructive sleep apnea) (Chronic) Hx of cardiac cath (Chronic) 12/2015 Chronic hypoxemic respiratory failure (Chronic) Seasonal allergies (Chronic) Stage 4 very severe COPD by GOLD classification (Chronic) Obesities, morbid (Chronic) Pulmonary HTN (Chronic) HTN (hypertension) (Chronic) Medical History: Medical History (Last Reviewed 01/10/20 @ 20:26 by Susie Holder DO) LAYLA (obstructive sleep apnea) (Chronic) G47.33 Chronic hypoxemic respiratory failure (Chronic) J96.11 Seasonal allergies (Chronic) J30.2 Stage 4 very severe COPD by GOLD classification (Chronic) J44.9 Obesities, morbid (Chronic) E66.01 Pulmonary HTN (Chronic) I27.2 HTN (hypertension) (Chronic) I10 Acute respiratory failure with hypoxia and hypercapnia (Resolved) J96.01, J96.02 Incarcerated umbilical hernia (Resolved) K42.0 Pneumonia (Resolved) J18.9 Tobacco dependence (Resolved) F17.200 No tobacco since Oct 2017 Allergies clarithromycin [From Biaxin] Allergy (Verified 01/10/20 17:00) Hives Penicillins Allergy (Verified 01/10/20 17:00) Hives Home Medications: Ambulatory Orders Medication Instructions Recorded Aspirin [Aspirin, Baby] 81 mg PO DAILY 12/02/15 Furosemide [Lasix] 40 mg PO BID 12/02/15 Spironolactone [Aldactone] 25 mg PO BID 12/02/15 Cyanocobalamin (Vitamin B-12) 1,000 mcg PO DAILY 07/29/17 [Vitamin B12] Cholecalciferol (Vitamin D3) 5,000 unit PO X1 11/16/17 [Vitamin D3] Multivitamin [Multiple Vitamins] 1 ea PO DAILY 11/16/17 tiotropium bromide 18 mcg capsule 18 mcg INHALATION PRN PRN 02/21/18 with inhalation device Guaifenesin [Guaifenesin ER] 1,200 mg PO Q12H PRN 09/13/18 Metoprolol Succinate 50 mg PO DAILY 09/13/18 fluticasone propionate 50 2 spray INTRANASAL DAILY #16 g 12/25/18 mcg/actuation nasal spray,suspension acetylcysteine 600 mg capsule 600 mg PO BID 12/30/18 benzonatate 200 mg capsule 200 mg PO TID PRN #90 cap 12/30/18 mepolizumab 100 mg subcutaneous 100 mg SC Q4W #1 ea 04/17/19 solution albuterol sulfate 90 mcg/actuation 2 puff INHALATION Q4H PRN #18 g 05/05/19 aerosol inhaler albuterol sulfate 2.5 mg INHALATION Q4H PRN #180 ml 06/27/19 ipratropium 0.5 mg-albuterol 3 mg 3 ml INHALATION Q6HWA.RT #180 vial 06/30/19 (2.5 mg base)/3 mL nebulization soln budesonide-formoterol HFA 160 2 puff INHALATION BID #3 device 08/05/19 mcg-4.5 mcg/actuation aerosol inhaler ipratropium bromide 0.02 % 0.5 mg INHALATION Q6H #150 ml 08/13/19 solution for inhalation roflumilast 500 mcg tablet 500 mcg PO DAILY #30 tab 08/13/19 montelukast 10 mg tablet 10 mg PO QPM #30 tab 09/08/19 loratadine 10 mg tablet 10 mg PO QDAY #90 tab 12/22/19 Surgical History: Surgical History (Last Reviewed 01/10/20 @ 20:26 by Susie Holder DO) Hx of cardiac cath (Chronic) Z98.890 12/2015 History of hernia repair (Resolved) Onset Date: ~08/2018 Z98.890, Z87.19 History of tonsillectomy (Resolved) Z90.89 History of tooth extraction (Resolved) K08.409 Surgical History: herniorrhaphy, tonsillectomy Psychiatric History: Anxiety, Depression Lives: Spouse/ Significant Other Smoking Status: Current some day smoker Tobacco Use: Cigarettes Alcohol: Rare Drugs: None - *Family History Maternal Family History: Family History (Last Reviewed 01/10/20 @ 20:26 by Susie Holder DO) Mother Diabetes Breast cancer Heart disease Hypertension COPD (chronic obstructive pulmonary disease) Asthma Father Hypertension CVA (cerebral vascular accident) History Items: COPD, Diabetes, Heart Disease, Hypertension Paternal Family History: Family History (Last Reviewed 01/10/20 @ 20:26 by Susie Holder DO) Mother Diabetes Breast cancer Heart disease Hypertension COPD (chronic obstructive pulmonary disease) Asthma Father Hypertension CVA (cerebral vascular accident) History Items: Unknown Review of Systems Constitutional: Denies: Chills, Fever, Weight Change HEENT: Denies: Head Aches, Sinus Congestion, Sinus Drainage Cardiovascular: Denies: Chest Pain, Palpitations Respiratory: Denies: Cough, Shortness of breath at rest, Sputum production Gastrointestinal: Denies: Abdominal Pain, Nausea, Vomiting Genitourinary: Denies: Dysuria Musculoskeletal: Reports: Leg Pain - right leg with increasing redness, swelling and pain. Denies: Joint Pain, Joint Tenderness Skin: Reports: - - he has a hematoma of the distal RLE. Denies: Jaundice, Rash, Wounds Neurological: Denies: Confusion, Focal weakness, Numbness, Tingling, Seizures Psychiatric: Reports: Anxiety, Depression. Denies: Homicidal Ideations, Suicidal Ideations Hematologic/ Lymphatic: Denies: Easy Bruising, Easy Bleeding, Hx of blood clot VTE Information - Inpt Only VTE Present on Admission: No VTE Mechan Device Prophylaxis: None VTE Pharm Prophylaxis ordered?: Yes Patient Problems: Active and Suspected Problems (Last Reviewed 11/24/19 @ 13:00 by Patria Casanova) Cellulitis and abscess of right leg (Acute) Hyperglycemia (Acute) with no hx of DM II - Physical Exam Vitals/I&O's: Vital Signs Temp Pulse Resp BP Pulse Ox 98.2 F 89 16 123/87 H 95 01/10/20 18:32 01/10/20 20:08 01/10/20 20:08 01/10/20 20:08 01/10/20 20:08 Oxygen Flow Rate (L/min) 2 Oxygen Delivery Method Nasal Cannula Weight: 330 lb Body Mass Index (BMI) 44.7 Intake and Output for Last 24 Hours 01/08/20 01/09/20 01/10/20 23:59 23:59 23:59 Intake Total 54 / 54 Balance 54 / 54 General: Alert, Oriented x3, Cooperative, Well developed, Well nourished HEENT: Atraumatic, PERRLA, EOMI, Normocephalic Oral: Moist Mucosa Neck: Supple, Trachea Midline Lungs: Clear to auscultation, No rhonchi, No wheeze, No rales, Diminished, - - No conversational dyspnea, no accessory muscle use, not tachypneic Cardiovascular: Regular rate, Normal S1, Normal S2, No murmurs, No Ectopic Activity, No Gallop Abdomen: Bowel Sounds Present, Soft, Non Tender, Non-Distended, Obese Extremities: No Calf Tenderness, Edema - of the RLE, - - There is redness of the RLE circumferentially up to the tibial plateau. There is increased warmth to touch. There is a hematoma distally and I suspect there is Skin: No rashes, No breakdown Musculoskeletal: No Tenderness to Palpation of Joints or Extremities Neurological: Cranial nerves II-XII grossly intact, Neuro grossly intact Psych/Mental Status: Normal Affect, Appropriate Laboratory Results 01/10/20 17:25: WBC 14.9 H, RBC 5.07, Hgb 16.3, Hct 51.4, MCV 101.4 H, MCH 32.1 H, MCHC 31.7 L, RDW Std Deviation 49.3 H, RDW Coeff of Valerie 13.2, Plt Count 201, MPV 10.5, Immature Gran % (Auto) 0.600, Neut % (Auto) 79.0 H, Lymph % (Auto) 12.8 L, [place] % (Auto) 6.7, Eos % (Auto) 0.4, Baso % (Auto) 0.5, Absolute Neuts (auto) 11.8 H, Absolute Lymphs (auto) 1.90, Nucleated RBC % 0 01/10/20 17:25: Sodium 140, Potassium 3.9, Chloride 103, Carbon Dioxide 35.0 H, Anion Gap 2 L, BUN 13, Creatinine 0.81, Estim Creat Clear Calc 118.42, Est GFR (MDRD) Af Amer 129, Est GFR (MDRD) Non-Af 107, BUN/Creatinine Ratio 16.1, Glucose 157 H, Calcium 9.1, Total Bilirubin 0.60, AST 17, ALT 30, Alkaline Phosphatase 83, Total Protein 7.1, Albumin 3.2, Globulin 3.9, Albumin/Globulin Ratio 0.8 L Assessment/Plan All Active Problems (Last Reviewed 11/24/19 @ 13:00 by Patria Casanova) Cellulitis and abscess of right leg (Acute) Hyperglycemia (Acute) Acute respiratory failure with hypoxia and hypercapnia (Resolved) Acute sinusitis (Resolved) History of hernia repair (Resolved ~08/2018) History of tonsillectomy (Resolved) History of tooth extraction (Resolved) Incarcerated umbilical hernia (Resolved) Pneumonia (Resolved) Tobacco dependence (Resolved) Impressions 1. Cellulitis and abscess of the RLE - elevate, weight bearing as tolerated, start Ancef. Swab from the hematoma, opened by Dr. Dumont, sent for culture. Will get a non-vascular US of the the RLE to assess for abscess. 2. hyperglycemia with no hx of DM II - HGBA1C ordered. 3. chronic medical conditions include: Severe Gold stage IV COPD, hypertension, morbid obesity, pulmonary hypertension, chronic respiratory failure with hypoxia and hypercapnia, LAYLA, anxiety/depression, ongoing tobacco dependence-complicate care, management and prognosis. Continue home medications. Code Visit Inpatient E&M: [id number] Init Hosp L2
[2020-01-10] MEDS: Albuterol 2.5 MG/3 ML VIAL.NEB. INHALATION (21:20)
[2020-01-10] MEDS: Montelukast 10 MG Tablet PO (21:35)
[2020-01-10] MEDS: Spironolactone 25 MG Tablet PO (21:36)
[2020-01-10] MEDS: Acetylcysteine (Mucomyst Oral) 20% SOLN 600 MG PO (21:43)
[2020-01-10] MEDS: MELATONIN 3 MG TABLET PO (21:45)
[2020-01-10] MEDS: oxyCODONE 5 MG Tablet PO (21:50)
[2020-01-10] MEDS: 0.9% Saline Lock 10 ML Syringe IV ×2 (21:59→23:14)
[2020-01-10] MEDS: Cefazolin 1 GM/50 ML BAG IV (22:03)
[2020-01-11] VITALS (13 sets, daily range): BP systolic 122–144; BP diastolic 76–94; PULSE 80–90; RESP 18–20; TEMP 36.6–36.9; O2SAT 89–94
[2020-01-11] MEDS: oxyCODONE 5 MG Tablet PO ×4 (03:14→22:37)
[2020-01-11] MEDS: 0.9% Saline Lock 10 ML Syringe IV (06:07)
[2020-01-11] MEDS: Cefazolin 1 GM/50 ML BAG IV (06:07)
[2020-01-11] MEDS: Ibuprofen 400 MG Tablet PO (06:14)
[2020-01-11] MEDS: Ipratropium/Albuterol Sulfate 3 ML AMPUL.NEB INHALATION ×2 (06:44→13:08)
[2020-01-11] MEDS: Budesonide Respules 0.5 MG/2 ML AMPUL.NEB. INHALATION (06:44)
--- NOTE | 2020-01-11 07:26 | CPS ---
Pt says O2 gives him a headache if he wears it too long and that his normal P-ox reading on room air is 86-88%.
[2020-01-11] MEDS: Aspirin 81 MG TAB.CHEW PO (09:38)
[2020-01-11] MEDS: Aspirin 325 MG Tablet PO (09:39)
[2020-01-11] MEDS: 0.9% Normal Saline 1,000 ML 50 ML IV (09:39)
[2020-01-11] MEDS: Multivitamins,Therapeutic Tablet 1 TABLET PO (09:39)
[2020-01-11] MEDS: Spironolactone 25 MG Tablet PO ×2 (09:40→22:37)
[2020-01-11] MEDS: Furosemide 40 MG Tablet PO ×2 (09:41→19:35)
[2020-01-11] MEDS: Loratadine 10 MG Tablet PO (09:42)
[2020-01-11] MEDS: Enoxaparin 40 MG/0.4 ML Syringe SC (09:42)
[2020-01-11] MEDS: Metoprolol(XL)Succ 50 MG Tablet PO (09:43)
[2020-01-11] MEDS: Cyanocobalamin 500 MCG Tablet 1000 MCG PO (09:43)
[2020-01-11] MEDS: Sertraline 50 MG Tablet PO (09:43)
[2020-01-11] MEDS: Acetaminophen 325 MG Tablet 650 MG PO (09:44)
[2020-01-11] MEDS: Acetylcysteine (Mucomyst Oral) 20% SOLN 600 MG PO ×2 (09:45→22:40)
[2020-01-11 09:59] LABS: Absolute Lymphocyte Count 1.76 X10^3/uL (0.83-4.51); Absolute Neutrophil Count 10.8 X10^3/uL (2.0-7.7); Basophil# 0.06 X10^3/uL; Basophil% 0.4 % (0-1); Eosinophil# 0.02 X10^3/uL; Eosinophils% 0.1 % (0-5); Hematocrit 48.8 % (40-54); Hemoglobin 15.1 g/dL (13.0-16.5); Lymphocyte # 1.76 X10^3/ul (4.0); Lymphocyte % 12.7 % (19-41); Mean Corp Hgb Conc 30.9 g/dL (32-36); Mean Corpuscular Hgb 31.4 pg (27.0-32.0); Mean Corpuscular Volume 101.5 fL (80-94); Mean Platelet Vol. 10.1 fl (6.2-12.0); Monocyte# 1.11 X10^3/uL; NRBC Flagged by Analyzer 0 % (0-5); Neutrophil # 10.82 X10^3/uL (2.7-7.7); Neutrophil % 77.8 % (47-70); Platelet Count 188 K/mm3 (150-450); RBC Distribution Width CV 13.2 % (11.6-14.6); RBC Distribution Width SD 49.3 fl (35.1-43.9); Red Blood Count 4.81 M/mm3 (4.6-6.2); White Blood Count 13.9 K/mm3 (4.4-11.0)
[2020-01-11 10:11] LABS: Anion Gap 5 (5-15); BUN 13 mg/dL (7-18); BUN/Creat Ratio 14.3 RATIO (10-20); Chloride 96 mmol/L (98-107); Creatinine, Serum 0.91 mg/dL (0.70-1.30); EST Glomerular Filtration Rate 93 mL/min (>60); Est Glom Filt Rate - Afr Amer 113 mL/min (>60); Estimated Creatinine Clearance 105.41 ml/min; Glucose 150 mg/dL (74-106); Potassium 4.1 mmol/L (3.5-5.1); Sodium Level 136 mmol/L (136-145)
[2020-01-11 10:19] LABS: Hemoglobin A1c 5.5 % (4.2-6.3)
[2020-01-11] MEDS: Albuterol 2.5 MG/3 ML VIAL.NEB. INHALATION ×2 (11:14→15:56)
--- NOTE | 2020-01-11 12:51 | PN_ITS ---
Patient Problems: Active and Suspected Problems (Last Reviewed 01/10/20 @ 20:26 by Susie Holder DO) Cellulitis and abscess of right leg (Acute) Hyperglycemia (Acute) with no hx of DM II Vitals/I&O's: Vital Signs Temp Pulse Resp BP Pulse Ox 98.0 F 89 18 126/94 H 93 01/11/20 09:15 01/11/20 09:43 01/11/20 11:14 01/11/20 09:15 01/11/20 09:15 Oxygen Flow Rate (L/min) 2 Oxygen Delivery Method Room Air Weight: 339 lb 5 oz Body Mass Index (BMI) 46.0 Intake and Output for Last 24 Hours 01/09/20 01/10/20 01/11/20 23:59 23:59 23:59 Intake Total 115.50 / 265.50 306.75 / 306.75 Balance 115.50 / 265.50 306.75 / 306.75 Microbiology Past 72 Hours 01/10/20 17:20 Abs - Leg Gram Stain - Final 01/10/20 17:20 Abs - Leg Wound Culture - Preliminary No growth-Final to follow Laboratory Results 01/10/20 17:25: WBC 14.9 H, RBC 5.07, Hgb 16.3, Hct 51.4, MCV 101.4 H, MCH 32.1 H, MCHC 31.7 L, RDW Std Deviation 49.3 H, RDW Coeff of Valerie 13.2, Plt Count 201, MPV 10.5, Immature Gran % (Auto) 0.600, Neut % (Auto) 79.0 H, Lymph % (Auto) 12.8 L, [place] % (Auto) 6.7, Eos % (Auto) 0.4, Baso % (Auto) 0.5, Absolute Neuts (auto) 11.8 H, Absolute Lymphs (auto) 1.90, Nucleated RBC % 0 01/10/20 17:25: Sodium 140, Potassium 3.9, Chloride 103, Carbon Dioxide 35.0 H, Anion Gap 2 L, BUN 13, Creatinine 0.81, Estim Creat Clear Calc 118.42, Est GFR (MDRD) Af Amer 129, Est GFR (MDRD) Non-Af 107, BUN/Creatinine Ratio 16.1, Glucose 157 H, Calcium 9.1, Total Bilirubin 0.60, AST 17, ALT 30, Alkaline Phosphatase 83, Total Protein 7.1, Albumin 3.2, Globulin 3.9, Albumin/Globulin Ratio 0.8 L 01/11/20 09:46: WBC 13.9 H, RBC 4.81, Hgb 15.1, Hct 48.8, MCV 101.5 H, MCH 31.4, MCHC 30.9 L, RDW Std Deviation 49.3 H, RDW Coeff of Valerie 13.2, Plt Count 188, MPV 10.1, Immature Gran % (Auto) 1.000 H, Neut % (Auto) 77.8 H, Lymph % (Auto) 12.7 L, [place] % (Auto) 8.0, Eos % (Auto) 0.1, Baso % (Auto) 0.4, Absolute Neuts (auto) 10.8 H, Absolute Lymphs (auto) 1.76, Nucleated RBC % 0 01/11/20 09:46: Sodium 136, Potassium 4.1, Chloride 96 L, Carbon Dioxide 35.0 H, Anion Gap 5, BUN 13, Creatinine 0.91, Estim Creat Clear Calc 105.41, Est GFR (MDRD) Af Amer 113, Est GFR (MDRD) Non-Af 93, BUN/Creatinine Ratio 14.3, Glucose 150 H, Calcium 9.0 01/11/20 09:46: Hemoglobin A1c 5.5 Current Medications Acetaminophen (Tylenol) 650 mg PO Q6H PRN PRN PRN Reason: Pain Score 1-10/Temp > 100.7 F Last Admin: 01/11/20 09:44 Dose: 650 mg Documented by: Acetylcysteine (Mucomyst) 600 mg PO BID [facility] Last Admin: 01/11/20 09:45 Dose: 600 mg Documented by: Al Hydroxide/Mg Hydroxide (Mylanta Ii) 30 ml PO Q6H PRN PRN PRN Reason: Gastric Burning Albuterol Sulfate (Ventolin Aerosols) 2.5 mg INHALATION Q4H PRN PRN Reason: shortness of breath or wheezing Last Admin: 01/11/20 11:14 Dose: 2.5 mg Documented by: Albuterol/Ipratropium (Duoneb) 3 ml INHALATION Q6HWA.RT [facility] Last Admin: 01/11/20 06:44 Dose: 3 ml Documented by: Aspirin (Aspirin) 325 mg PO DAILY@0800 [facility] Last Admin: 01/11/20 09:39 Dose: 325 mg Documented by: Benzonatate (Tessalon Perle) 200 mg PO TID PRN PRN PRN Reason: COUGH Budesonide (Pulmicort Aerosol) 0.5 mg INHALATION Q12H.RT [facility] Last Admin: 01/11/20 06:44 Dose: 0.5 mg Documented by: Cyanocobalamin (Vitamin B12) 1,000 mcg PO DAILY [facility] Last Admin: 01/11/20 09:43 Dose: 1,000 mcg Documented by: Enoxaparin Sodium (Lovenox) 40 mg SC DAILY [facility] Last Admin: 01/11/20 09:42 Dose: 40 mg Documented by: Fluticasone Propionate (Flonase Nasal Leopold) 2 spray NASAL DAILY [facility] Last Admin: 01/11/20 09:42 Dose: Not Given Documented by: Furosemide (Lasix) 40 mg PO BIDLX [facility] Last Admin: 01/11/20 09:41 Dose: 40 mg Documented by: Guaifenesin (Mucinex) 1,200 mg PO Q12H PRN PRN PRN Reason: COUGH Cefazolin Sodium () 1 gm in 50 mls @ 100 mls/hr IV Q8 [facility] Last Infusion: 01/11/20 06:37 Dose: Infused Documented by: Sodium Chloride () 250 mls @ 15 mls/hr IV .[id number] PRN PRN Reason: Saline Flush Last Infusion: 01/11/20 07:04 Dose: 0 mls/hr Documented by: Sodium Chloride () 250 mls @ 15 mls/hr IV .[id number] PRN PRN Reason: Additional IVPB Infusion Sodium Chloride () 1,000 mls @ 50 mls/hr IV .Q20H [facility] Last Admin: 01/11/20 09:39 Dose: 50 mls/hr Documented by: Ibuprofen (Motrin) 400 mg PO Q4H PRN PRN PRN Reason: Pain Score 1-10/Temp > 100.7 F Last Admin: 01/11/20 06:14 Dose: 400 mg Documented by: Loratadine (Claritin) 10 mg PO DAILY [facility] Last Admin: 01/11/20 09:42 Dose: 10 mg Documented by: Magnesium Hydroxide (Milk Of Magnesia) 30 ml PO DAILY PRN PRN PRN Reason: Constipation Melatonin (Melatonin) 3 mg PO QHS PRN PRN PRN Reason: INSOMNIA Last Admin: 01/10/20 21:45 Dose: 3 mg Documented by: Metoprolol Succinate (Toprol Xl (Beta Irina)) 50 mg PO DAILY [facility] Last Admin: 01/11/20 09:43 Dose: 50 mg Documented by: Montelukast Sodium (Singulair) 10 mg PO QPM [facility] Last Admin: 01/10/20 21:35 Dose: 10 mg Documented by: Morphine Sulfate () 4 mg IV Q3H PRN PRN PRN Reason: Pain Score 6-10/10 Multivitamins (Multivitamin) 1 tablet PO DAILY@0800 [facility] Last Admin: 01/11/20 09:39 Dose: 1 tablet Documented by: Nicotine (Nicoderm Cq (Pbkc)) 14 mg TRANSDERM. DAILY [facility] Last Admin: 01/11/20 09:43 Dose: 14 mg Documented by: Non-Formulary Medication (Mepolizumab) 100 mg SC Q4W [facility] Ondansetron HCl (Zofran) 4 mg IV Q8H PRN PRN PRN Reason: NAUSEA/VOMITING Oxycodone HCl (Oxyir) 5 - 10 mg PO Q4H PRN PRN PRN Reason: Pain Score 4-5/10 Last Admin: 01/11/20 09:44 Dose: 10 mg Documented by: Prochlorperazine Edisylate (Compazine Iv) 5 mg IV Q4H PRN PRN PRN Reason: Breakthrough nausea/vomiting Sertraline HCl (Zoloft) 50 mg PO DAILY [facility] Last Admin: 01/11/20 09:43 Dose: 50 mg Documented by: Sodium Chloride () 10 - 40 ml IV UD PRN PRN Reason: SALINE FLUSH Last Admin: 01/11/20 06:07 Dose: 20 ml Documented by: Spironolactone (Aldactone) 25 mg PO BID [facility] Last Admin: 01/11/20 09:40 Dose: 25 mg Documented by: STROKE Vital Signs/Narrative: Vital Signs Temp Pulse Resp BP Pulse Ox 01/11/20 11:14 18 01/11/20 09:43 89 01/11/20 09:15 98.0 F 89 18 126/94 H 93 01/11/20 09:00 80 18 94 Medical Necessity - Tobacco Use Smoking Status: Current some day smoker Tobacco Use: Cigarettes Assessment/Plan All Active Problems (Last Reviewed 01/10/20 @ 20:26 by Susie Holder DO) Cellulitis and abscess of right leg (Acute) Hyperglycemia (Acute) Acute respiratory failure with hypoxia and hypercapnia (Resolved) Acute sinusitis (Resolved) History of hernia repair (Resolved ~08/2018) History of tonsillectomy (Resolved) History of tooth extraction (Resolved) Incarcerated umbilical hernia (Resolved) Pneumonia (Resolved) Tobacco dependence (Resolved) There is a 49 gentleman with multiple comorbidities including class IV COPD, chronic hypoxic and hypercarbic respiratory failure, chronic metabolic alkalosis, pulmonary hypertension, right ventricular failure on, from sleep apnea admitted with swelling, redness, pain and tenderness of right lower extremity after hit by a golf ball about 1 week ago. He has a small bruise/hematoma around it. Complains of subjective fever at home. Assessment and plan: 1. Cellulitis and abscess of the right lower leg with small hematoma: [facility] IV fluid normal saline at 50 mils per hour as CT lower extremity with contrast is ordered. Ultrasound not available on the weekend. Discussed with surgeon Dr. Gagnon and I think, he needs incision and drainage. Elevate, weight bearing as tolerated, and Ancef increased to 2 g IV every 8 hourly. Swab from the hematoma, opened by Dr. Dumont, sent for culture. Gram stain from that shows no growth. 2. hyperglycemia with no hx of DM II -A1c 5.5. It means hyperglycemic but not diabetes mellitus, probably might any steroid.. 3. Stage IV COPD, pulmonary hypertension, chronic hypoxic and hypercarbic respiratory failure, LAYLA: Patient had echo in November 2015 which shows estimated EF 50%, normal right and left atrium. Moderately dilated RV with moderate global right ventricular dysfunction. Unable to estimate RVSP. IVC dilated. Overall, echo is suggestive of chronic systolic right and left-sided heart failure with pulmonary hypertension. Lasix and hold as patient has cellulitis and is getting CT scan. chronic medical conditions include:anxiety/depression, ongoing tobacco dependence-complicate care, management and prognosis. Continue home medications. Microbiology Past 72 Hours 01/10/20 17:20 Abs - Leg Gram Stain - Final 01/10/20 17:20 Abs - Leg Wound Culture - Preliminary No growth-Final to follow Laboratory Results 01/10/20 17:25: WBC 14.9 H, RBC 5.07, Hgb 16.3, Hct 51.4, MCV 101.4 H, MCH 32.1 H, MCHC 31.7 L, RDW Std Deviation 49.3 H, RDW Coeff of Valerie 13.2, Plt Count 201, MPV 10.5, Immature Gran % (Auto) 0.600, Neut % (Auto) 79.0 H, Lymph % (Auto) 12.8 L, [place] % (Auto) 6.7, Eos % (Auto) 0.4, Baso % (Auto) 0.5, Absolute Neuts (auto) 11.8 H, Absolute Lymphs (auto) 1.90, Nucleated RBC % 0 01/10/20 17:25: Sodium 140, Potassium 3.9, Chloride 103, Carbon Dioxide 35.0 H, Anion Gap 2 L, BUN 13, Creatinine 0.81, Estim Creat Clear Calc 118.42, Est GFR (MDRD) Af Amer 129, Est GFR (MDRD) Non-Af 107, BUN/Creatinine Ratio 16.1, Glucose 157 H, Calcium 9.1, Total Bilirubin 0.60, AST 17, ALT 30, Alkaline Phosphatase 83, Total Protein 7.1, Albumin 3.2, Globulin 3.9, Albumin/Globulin Ratio 0.8 L 01/11/20 09:46: WBC 13.9 H, RBC 4.81, Hgb 15.1, Hct 48.8, MCV 101.5 H, MCH 31.4, MCHC 30.9 L, RDW Std Deviation 49.3 H, RDW Coeff of Valerie 13.2, Plt Count 188, MPV 10.1, Immature Gran % (Auto) 1.000 H, Neut % (Auto) 77.8 H, Lymph % (Auto) 12.7 L, [place] % (Auto) 8.0, Eos % (Auto) 0.1, Baso % (Auto) 0.4, Absolute Neuts (auto) 10.8 H, Absolute Lymphs (auto) 1.76, Nucleated RBC % 0 01/11/20 09:46: Sodium 136, Potassium 4.1, Chloride 96 L, Carbon Dioxide 35.0 H, Anion Gap 5, BUN 13, Creatinine 0.91, Estim Creat Clear Calc 105.41, Est GFR (MDRD) Af Amer 113, Est GFR (MDRD) Non-Af 93, BUN/Creatinine Ratio 14.3, Glucose 150 H, Calcium 9.0 01/11/20 09:46: Hemoglobin A1c 5.5 Code Visit Inpatient E&M: 91159 Subs Hosp L2
--- NOTE | 2020-01-11 12:53 | CT_ITS ---
STUDY: CT OF THE RIGHT LOWER EXTREMITY WITH CONTRAST REASON FOR EXAM: Male, 49 years old. Cellulitis after golf ball injury. RADIATION DOSAGE (If Supplied By Facility): CTDIvol = ( 15.35 ) mGy, DLP = ( 719.31 ) mGycm. Individualized dose optimization techniques were used for this CT.? TECHNIQUE: Contiguous axial images of the right lower extremity were obtained after the intravenous administration 100 mL of Isovue-370 contrast. Coronal and sagittal reconstruction in bone and soft tissue algorithm images were provided for interpretation. COMPARISON: X-rays of the lower extremity dated January 08, 2020. FINDINGS: Superficial subcutaneous soft tissue edema compatible with cellulitis (axial series 302 images 56-120). Minimal muscular edema within the anterior, lateral and posterior compartments (axial series 302 images 20-124). Normal tibia and fibula. CT/Extremity Lower WITH Contrast IMPRESSION: Superficial subcutaneous soft tissue edema compatible with cellulitis. No focal fluid collections and no evidence of osteomyelitis. Electronically Signed: Lawrence Ponce MD at 15:36 EST , Service support ,
[2020-01-11] MEDS: Cefazolin 2 GM in 0.9% Normal Saline 100 ML IV ×2 (14:23→22:38)
--- NOTE | 2020-01-11 14:59 | PCM.CONS.GEN ---
Reason for Consult Date of Consultation: 01/11/20 History of Present Illness: The patient is a 49 year old M patient states that he was hit with a golf ball while kids were playing in the yard weekend. Patient states it has been sore and tender since then. However patient did go to urgent care on and was sent to the ER and was discharged it did not appear to be an infection and to come back if it got worse. Patient did come back to the ER yesterday and was placed on IV antibiotics patient's erythema has improved still has swelling and induration at the site, culture done by aspiration per ER showed no organisms only red blood cells +3 and white blood cell +1. Past Medical History Past Medical History (Chronic Problems): Chronic Problems (Last Reviewed 01/10/20 @ 20:26 by Susie Holder DO) Metabolic alkalosis (Chronic) Severe persistent asthma (Chronic) Chronic respiratory failure with hypoxia (Chronic) Stage 4 very severe COPD by GOLD classification (Chronic) FEV1 23% of predicted LAYLA (obstructive sleep apnea) (Chronic) Hx of cardiac cath (Chronic) 12/2015 Chronic hypoxemic respiratory failure (Chronic) Seasonal allergies (Chronic) Stage 4 very severe COPD by GOLD classification (Chronic) Obesities, morbid (Chronic) Pulmonary HTN (Chronic) HTN (hypertension) (Chronic) Medical History: Medical History (Last Reviewed 01/10/20 @ 20:26 by Susie Holder DO) LAYLA (obstructive sleep apnea) (Chronic) G47.33 Chronic hypoxemic respiratory failure (Chronic) J96.11 Seasonal allergies (Chronic) J30.2 Stage 4 very severe COPD by GOLD classification (Chronic) J44.9 Obesities, morbid (Chronic) E66.01 Pulmonary HTN (Chronic) I27.2 HTN (hypertension) (Chronic) I10 Acute respiratory failure with hypoxia and hypercapnia (Resolved) J96.01, J96.02 Incarcerated umbilical hernia (Resolved) K42.0 Pneumonia (Resolved) J18.9 Tobacco dependence (Resolved) F17.200 No tobacco since Oct 2017 Allergies clarithromycin [From Biaxin] Allergy (Verified 01/10/20 17:00) Hives Penicillins Allergy (Verified 01/10/20 17:00) Hives Home Medications: Ambulatory Orders Medication Instructions Recorded Furosemide [Lasix] 40 mg PO BID 01/07/16 Spironolactone [Aldactone] 25 mg PO BID 12/02/15 Cyanocobalamin (Vitamin B-12) 1,000 mcg PO DAILY 07/29/17 [Vitamin B12] Cholecalciferol (Vitamin D3) 5,000 unit PO X1 11/16/17 [Vitamin D3] Multivitamin [Multiple Vitamins] 1 ea PO DAILY 11/16/17 tiotropium bromide 18 mcg capsule 18 mcg INHALATION PRN PRN 02/21/18 with inhalation device Guaifenesin [Guaifenesin ER] 1,200 mg PO Q12H PRN 09/13/18 Metoprolol Succinate 50 mg PO DAILY 09/13/18 fluticasone propionate 50 2 spray INTRANASAL DAILY #16 g 12/25/18 mcg/actuation nasal spray,suspension benzonatate 200 mg capsule 200 mg PO TID PRN #90 cap 12/30/18 mepolizumab 100 mg subcutaneous 100 mg SC Q4W #1 ea 04/17/19 solution albuterol sulfate 90 mcg/actuation 2 puff INHALATION Q4H PRN #18 g 05/05/19 aerosol inhaler albuterol sulfate 2.5 mg INHALATION Q4H PRN #180 ml 06/27/19 ipratropium 0.5 mg-albuterol 3 mg 3 ml INHALATION Q6HWA.RT #180 vial 06/30/19 (2.5 mg base)/3 mL nebulization soln budesonide-formoterol HFA 160 2 puff INHALATION BID #3 device 08/05/19 mcg-4.5 mcg/actuation aerosol inhaler ipratropium bromide 0.02 % 0.5 mg INHALATION Q6H #150 ml 08/13/19 solution for inhalation montelukast 10 mg tablet 10 mg PO QPM #30 tab 09/08/19 Aspirin 325 mg PO DAILY@0800 01/10/20 Loratadine 10 mg PO DAILY 01/10/20 Surgical History: Surgical History (Last Reviewed 01/10/20 @ 20:26 by Susie Holder DO) Hx of cardiac cath (Chronic) Z98.890 12/2015 History of hernia repair (Resolved) Onset Date: ~08/2018 Z98.890, Z87.19 History of tonsillectomy (Resolved) Z90.89 History of tooth extraction (Resolved) K08.409 Surgical History: herniorrhaphy, tonsillectomy Psychiatric History: Anxiety, Depression Lives: Spouse/ Significant Other Smoking Status: Current some day smoker Tobacco Use: Cigarettes Alcohol: Rare Drugs: None - *Family History Maternal Family History: Family History (Last Reviewed 01/10/20 @ 20:26 by Susie Holder DO) Mother Diabetes Breast cancer Heart disease Hypertension COPD (chronic obstructive pulmonary disease) Asthma Father Hypertension CVA (cerebral vascular accident) History Items: COPD, Diabetes, Heart Disease, Hypertension Paternal Family History: Family History (Last Reviewed 01/10/20 @ 20:26 by Susie Holder DO) Mother Diabetes Breast cancer Heart disease Hypertension COPD (chronic obstructive pulmonary disease) Asthma Father Hypertension CVA (cerebral vascular accident) History Items: Unknown Review of Systems Constitutional: Denies: Anorexia, Chills Eyes: Denies: Blurred vision HEENT: Denies: Difficulty Swallowing Cardiovascular: Denies: Chest Pain Respiratory: Denies: Shortness of breath at rest Gastrointestinal: Denies: Abdominal Pain, Nausea, Vomiting Genitourinary: Denies: Dysuria Musculoskeletal: Reports: Leg Pain Skin: Reports: Wounds - Right lower blanchard Neurological: Denies: Balance problems Psychiatric: Denies: Depression Hematologic/ Lymphatic: Denies: Easy Bleeding Patient Problems: Active and Suspected Problems (Last Reviewed 01/10/20 @ 20:26 by Susie Holder DO) Cellulitis and abscess of right leg (Acute) Hyperglycemia (Acute) with no hx of DM II - Physical Exam Vitals/I&O's: Vital Signs Temp Pulse Resp BP Pulse Ox 98.0 F 89 18 126/94 H 93 01/11/20 09:15 01/11/20 09:43 01/11/20 13:08 01/11/20 09:15 01/11/20 09:15 Oxygen Flow Rate (L/min) 2 Oxygen Delivery Method Room Air Weight: 339 lb 5 oz Body Mass Index (BMI) 46.0 Intake and Output for Last 24 Hours 01/09/20 01/10/20 01/11/20 23:59 23:59 23:59 Intake Total 115.50 / 265.50 306.75 / 306.75 Balance 115.50 / 265.50 306.75 / 306.75 General: Alert, Oriented x3, Cooperative, No apparent distress HEENT: Atraumatic Lungs: Normal air movement Cardiovascular: Regular rate Abdomen: Soft, Non Tender, Non-Distended Extremities: - - Right lower anterior blanchard: Area of fluctuance about 2-1/2 to 3 cm with thinning of the skin, erythema about 8 x 8 cm, improved from previous line of demarcation marked previously on his leg., Tender to palpation, no obvious drainage of purulent material just some weeping of small amount of serous material Skin: - - See extremities Neurological: Cranial nerves II-XII grossly intact Psych/Mental Status: Normal Affect Microbiology Past 72 Hours 01/10/20 17:20 Abs - Leg Gram Stain - Final 01/10/20 17:20 Abs - Leg Wound Culture - Preliminary No growth-Final to follow Laboratory Results 01/10/20 17:25: WBC 14.9 H, RBC 5.07, Hgb 16.3, Hct 51.4, MCV 101.4 H, MCH 32.1 H, MCHC 31.7 L, RDW Std Deviation 49.3 H, RDW Coeff of Valerie 13.2, Plt Count 201, MPV 10.5, Immature Gran % (Auto) 0.600, Neut % (Auto) 79.0 H, Lymph % (Auto) 12.8 L, [place] % (Auto) 6.7, Eos % (Auto) 0.4, Baso % (Auto) 0.5, Absolute Neuts (auto) 11.8 H, Absolute Lymphs (auto) 1.90, Nucleated RBC % 0 01/10/20 17:25: Sodium 140, Potassium 3.9, Chloride 103, Carbon Dioxide 35.0 H, Anion Gap 2 L, BUN 13, Creatinine 0.81, Estim Creat Clear Calc 118.42, Est GFR (MDRD) Af Amer 129, Est GFR (MDRD) Non-Af 107, BUN/Creatinine Ratio 16.1, Glucose 157 H, Calcium 9.1, Total Bilirubin 0.60, AST 17, ALT 30, Alkaline Phosphatase 83, Total Protein 7.1, Albumin 3.2, Globulin 3.9, Albumin/Globulin Ratio 0.8 L 01/11/20 09:46: WBC 13.9 H, RBC 4.81, Hgb 15.1, Hct 48.8, MCV 101.5 H, MCH 31.4, MCHC 30.9 L, RDW Std Deviation 49.3 H, RDW Coeff of Valerie 13.2, Plt Count 188, MPV 10.1, Immature Gran % (Auto) 1.000 H, Neut % (Auto) 77.8 H, Lymph % (Auto) 12.7 L, Screven % (Auto) 8.0, Eos % (Auto) 0.1, Baso % (Auto) 0.4, Absolute Neuts (auto) 10.8 H, Absolute Lymphs (auto) 1.76, Nucleated RBC % 0 01/11/20 09:46: Sodium 136, Potassium 4.1, Chloride 96 L, Carbon Dioxide 35.0 H, Anion Gap 5, BUN 13, Creatinine 0.91, Estim Creat Clear Calc 105.41, Est GFR (MDRD) Af Amer 113, Est GFR (MDRD) Non-Af 93, BUN/Creatinine Ratio 14.3, Glucose 150 H, Calcium 9.0 01/11/20 09:46: Hemoglobin A1c 5.5 Current Medications Acetaminophen (Tylenol) 650 mg PO Q6H PRN PRN PRN Reason: Pain Score 1-10/Temp > 100.7 F Last Admin: 01/11/20 09:44 Dose: 650 mg Documented by: Acetylcysteine (Mucomyst) 600 mg PO BID [facility] Last Admin: 01/11/20 09:45 Dose: 600 mg Documented by: Al Hydroxide/Mg Hydroxide (Mylanta Ii) 30 ml PO Q6H PRN PRN PRN Reason: Gastric Burning Albuterol Sulfate (Ventolin Aerosols) 2.5 mg INHALATION Q4H PRN PRN Reason: shortness of breath or wheezing Last Admin: 01/11/20 11:14 Dose: 2.5 mg Documented by: Albuterol/Ipratropium (Duoneb) 3 ml INHALATION Q6HWA.RT [facility] Last Admin: 01/11/20 13:08 Dose: 3 ml Documented by: Aspirin (Aspirin) 325 mg PO DAILY@0800 [facility] Last Admin: 01/11/20 09:39 Dose: 325 mg Documented by: Benzonatate (Tessalon Perle) 200 mg PO TID PRN PRN PRN Reason: COUGH Budesonide (Pulmicort Aerosol) 0.5 mg INHALATION Q12H.RT [facility] Last Admin: 01/11/20 06:44 Dose: 0.5 mg Documented by: Cyanocobalamin (Vitamin B12) 1,000 mcg PO DAILY [facility] Last Admin: 01/11/20 09:43 Dose: 1,000 mcg Documented by: Enoxaparin Sodium (Lovenox) 40 mg SC DAILY [facility] Last Admin: 01/11/20 09:42 Dose: 40 mg Documented by: Fluticasone Propionate (Flonase Nasal [place]) 2 spray NASAL DAILY [facility] Last Admin: 01/11/20 09:42 Dose: Not Given Documented by: Furosemide (Lasix) 40 mg PO BIDLX [facility] Last Admin: 01/11/20 09:41 Dose: 40 mg Documented by: Guaifenesin (Mucinex) 1,200 mg PO Q12H PRN PRN PRN Reason: COUGH Sodium Chloride () 250 mls @ 15 mls/hr IV .[id number] PRN PRN Reason: Saline Flush Last Infusion: 01/11/20 07:04 Dose: 0 mls/hr Documented by: Sodium Chloride () 250 mls @ 15 mls/hr IV .[id number] PRN PRN Reason: Additional IVPB Infusion Sodium Chloride () 1,000 mls @ 50 mls/hr IV .Q20H [facility] Last Admin: 01/11/20 09:39 Dose: 50 mls/hr Documented by: Cefazolin Sodium 2 gm/ Sodium (Chloride) 110 mls @ 150 mls/hr IV Q8 [facility] Last Admin: 01/11/20 14:23 Dose: 150 mls/hr Documented by: Ibuprofen (Motrin) 400 mg PO Q6H PRN PRN PRN Reason: Pain Score 1-10/Temp > 100.7 F Loratadine (Claritin) 10 mg PO DAILY [facility] Last Admin: 01/11/20 09:42 Dose: 10 mg Documented by: Magnesium Hydroxide (Milk Of Magnesia) 30 ml PO DAILY PRN PRN PRN Reason: Constipation Melatonin (Melatonin) 3 mg PO QHS PRN PRN PRN Reason: INSOMNIA Last Admin: 01/10/20 21:45 Dose: 3 mg Documented by: Metoprolol Succinate (Toprol Xl (Beta Irina)) 50 mg PO DAILY [facility] Last Admin: 01/11/20 09:43 Dose: 50 mg Documented by: Montelukast Sodium (Singulair) 10 mg PO QPM [facility] Last Admin: 01/10/20 21:35 Dose: 10 mg Documented by: Morphine Sulfate () 4 mg IV Q3H PRN PRN PRN Reason: Pain Score 6-10/10 Multivitamins (Multivitamin) 1 tablet PO DAILY@0800 [facility] Last Admin: 01/11/20 09:39 Dose: 1 tablet Documented by: Nicotine (Nicoderm Cq (Pbkc)) 14 mg TRANSDERM. DAILY [facility] Last Admin: 01/11/20 09:43 Dose: 14 mg Documented by: Non-Formulary Medication (Mepolizumab) 100 mg SC Q4W [facility] Ondansetron HCl (Zofran) 4 mg IV Q8H PRN PRN PRN Reason: NAUSEA/VOMITING Oxycodone HCl (Oxyir) 5 - 10 mg PO Q4H PRN PRN PRN Reason: Pain Score 4-5/10 Last Admin: 01/11/20 14:27 Dose: 10 mg Documented by: Prochlorperazine Edisylate (Compazine Iv) 5 mg IV Q4H PRN PRN PRN Reason: Breakthrough nausea/vomiting Sertraline HCl (Zoloft) 50 mg PO DAILY [facility] Last Admin: 01/11/20 09:43 Dose: 50 mg Documented by: Sodium Chloride () 10 - 40 ml IV UD PRN PRN Reason: SALINE FLUSH Last Admin: 01/11/20 06:07 Dose: 20 ml Documented by: Spironolactone (Aldactone) 25 mg PO BID [facility] Last Admin: 01/11/20 09:40 Dose: 25 mg Documented by: Assessment/Plan All Active Problems (Last Reviewed 01/10/20 @ 20:26 by Susie Holder DO) Cellulitis and abscess of right leg (Acute) Hyperglycemia (Acute) Acute respiratory failure with hypoxia and hypercapnia (Resolved) Acute sinusitis (Resolved) History of hernia repair (Resolved ~08/2018) History of tonsillectomy (Resolved) History of tooth extraction (Resolved) Incarcerated umbilical hernia (Resolved) Pneumonia (Resolved) Tobacco dependence (Resolved) 49-year-old male with right lower blanchard abscess/cellulitis/hematoma 1. Did discuss the procedure of incision and drainage see if there is any pocket that would respond better to antibiotics if drained. Patient CT for me did show a fluid collection in this area read is still pending. Ultrasound also showed a fluid collection. Discussed the risk including but not limited to infection need for further debridement, wound care, bleeding, etc. Patient is were agreeable to proceed. Honey Gagnon M.D. Pager: [phone] [facility] [address] [place] [address], [facility], [address] [place] [address] Office: [phone] Code Visit Inpatient E&M: 64345 Init Hosp L1
[2020-01-11] MEDS: Morphine 4 MG/ML Syringe IV (15:19)
--- NOTE | 2020-01-11 15:36 | PCM.OPRPT ---
Report of Operation Date of Procedure: 01/11/20 Pre-Operative Diagnosis: Right lower blanchard abscess Post-Operative Diagnosis: Same Surgery/Procedure Performed:: Incision and drainage of right lower blanchard abscess Type of Anesthesia:: Local Specimen's removed: Culture for anaerobic aerobic Estimated Blood Loss (mL): Minimal Description of Procedure: Right lower extremity was prepped draped in usual sterile fashion with Betadine. Local anesthesia 1% lidocaine with epinephrine was used for a total of 5 cc. Incision was made a 15 blade scalpel. Cultures were taken for anaerobic and aerobic cultures. No obvious purulent material obtained mostly just clot only about 3 to 4 cc. Loculations were broke up using a Q-tip, wound was irrigated with saline. Wound was packed with quarter inch iodoform and covered with gauze and tape. Patient tolerated procedure well. - Complications None Code Visit 10xxx: [id number] Drainage of skin abscess
[2020-01-11] MEDS: Montelukast 10 MG Tablet PO (22:37)
[2020-01-11] MEDS: MELATONIN 3 MG TABLET PO (22:38)
[2020-01-12] VITALS (12 sets, daily range): BP systolic 114–155; BP diastolic 65–99; PULSE 70–92; RESP 16–24; TEMP 36.5–36.8; O2SAT 90–92
[2020-01-12] MEDS: Benzonatate 100 MG Capsule 200 MG PO (03:38)
[2020-01-12] MEDS: guaiFENesin 1,200 MG Tablet 1200 MG PO (03:38)
[2020-01-12] MEDS: oxyCODONE 5 MG Tablet PO ×3 (03:39→23:23)
--- NOTE | 2020-01-12 05:55 | ECHOD_ITS ---
Version 2 Reason For Study: Heart Failure, PHTN Procedure This was a 2D Doppler, Color Flow transthoracic echocardiogram. Technically difficult study due to patients body habitus. Unable to utilize Definity due to underestimated pulmonary pressures. Exam performed portable in patient room. Left Ventricle Normal size and thickness. The estimated ejection fraction is 65 %. Normal diastology for age. No regional wall motion abnormalities noted. Right Ventricle Normal size and thickness. Normal systolic function. Atria Normal left atrium. Normal right atrium. Normal atrial septum. Mitral Valve The mitral valve is structurally normal. No prolapse or stenosis seen. Tricuspid Valve Normal tricuspid valve. Trivial tricuspid valve insufficiency. Right ventricular systolic pressure estimated to be 57 mmHg. Moderate pulmonary hypertension. Aortic Valve Normal aortic valve. Trisinus/trileaflet aortic valve. Pulmonic Valve Normal pulmonic valve. Great Vessels Normal aortic root. Normal arch. Pericardium/Pleural No pericardial effusion. MMode/2D Measurements & Calculations LVIDd: 3.9 cm IVSd: 1.5 cm Ao root diam: 3.5 cm LVIDs: 1.9 cm LVPWd: 1.3 cm LA dimension: 4.2 cm FS: 51.1 % LAV(MOD-sp2): 34.4 ml Time Measurements MV dec time: 0.23 sec Doppler Measurements & Calculations MV E max ramón: 95.2 cm/sec Lat Peak E' Ramón: 9.7 cm/sec Med Peak E' Ramón: 9.8 cm/sec MV A max ramón: 101.5 cm/sec E/E' lat: 9.8 E/E' med: 9.7 MV E/A: 0.94 MV V2 max: 111.7 cm/sec MV P1/2t max ramón: 113.6 cm/sec Ao V2 max: 193.6 cm/sec MV max P.0 mmHg MV P1/2t: 60.0 msec Ao max P.0 mmHg MV V2 mean: 75.6 cm/sec Ao V2 mean: 118.2 cm/sec MV mean P.5 mmHg MV dec slope: 554.7 cm/sec2 Ao mean P.7 mmHg MV V2 VTI: 28.4 cm MVA(P1/2t): 3.7 cm2 Ao V2 VTI: 36.1 cm LV V1 max: 140.8 cm/sec TR max ramón: 361.9 cm/sec LV V1 max P.9 mmHg TR max P.4 mmHg LV V1 mean P.9 mmHg LV V1 mean: 103.9 cm/sec LV V1 VTI: 29.2 cm Interpretation Summary The estimated ejection fraction is 65 %. Normal diastology for age. Trivial tricuspid valve insufficiency. Right ventricular systolic pressure estimated to be 57 mmHg. At least moderate pulmonary hypertension; may be underestimated. In comparison to echo report dated 11/17/2017, LV function has remained the same. No RVSP obtained at that time. The study was technically difficult. Ordering Physician: Martin Goetz Referring Physician: Yumi Peralta Performed By: Ridge Beckman RCS
[2020-01-12] MEDS: Cefazolin 2 GM in 0.9% Normal Saline 100 ML IV ×3 (06:20→23:23)
[2020-01-12] MEDS: Ibuprofen 400 MG Tablet PO ×2 (06:28→12:28)
[2020-01-12 06:31] LABS: Anion Gap -2 (5-15); BUN 11 mg/dL (7-18); BUN/Creat Ratio 16.7 RATIO (10-20); Calcium,Total 8.5 mg/dL (8.5-10.1); Chloride 99 mmol/L (98-107); Creatinine, Serum 0.66 mg/dL (0.70-1.30); EST Glomerular Filtration Rate 136 mL/min (>60); Est Glom Filt Rate - Afr Amer 164 mL/min (>60); Estimated Creatinine Clearance 145.34 ml/min; Glucose 106 mg/dL (74-106); Potassium 4.1 mmol/L (3.5-5.1); Sodium Level 134 mmol/L (136-145)
[2020-01-12] MEDS: Budesonide Respules 0.5 MG/2 ML AMPUL.NEB. INHALATION (06:46)
[2020-01-12 06:57] LABS: Absolute Lymphocyte Count 1.83 X10^3/uL (0.83-4.51); Absolute Neutrophil Count 7.6 X10^3/uL (2.0-7.7); Basophil# 0.06 X10^3/uL; Basophil% 0.6 % (0-1); Eosinophil# 0.07 X10^3/uL; Eosinophils% 0.7 % (0-5); Hematocrit 45.8 % (40-54); Hemoglobin 14.4 g/dL (13.0-16.5); Lymphocyte # 1.83 X10^3/ul (4.0); Lymphocyte % 17.1 % (19-41); Mean Corp Hgb Conc 31.4 g/dL (32-36); Mean Corpuscular Hgb 31.9 pg (27.0-32.0); Mean Corpuscular Volume 101.3 fL (80-94); Mean Platelet Vol. 10.5 fl (6.2-12.0); Monocyte% 9.3 % (0-10); NRBC Flagged by Analyzer 0 % (0-5); Neutrophil # 7.64 X10^3/uL (2.7-7.7); Neutrophil % 71.3 % (47-70); Platelet Count 169 K/mm3 (150-450); RBC Distribution Width CV 12.9 % (11.6-14.6); RBC Distribution Width SD 48.3 fl (35.1-43.9); Red Blood Count 4.52 M/mm3 (4.6-6.2); White Blood Count 10.7 K/mm3 (4.4-11.0)
[2020-01-12] MEDS: Multivitamins,Therapeutic Tablet 1 TABLET PO (08:08)
[2020-01-12] MEDS: Furosemide 40 MG Tablet PO ×2 (08:08→17:40)
[2020-01-12] MEDS: Loratadine 10 MG Tablet PO (08:09)
[2020-01-12] MEDS: Metoprolol(XL)Succ 50 MG Tablet PO (08:09)
[2020-01-12] MEDS: Cyanocobalamin 500 MCG Tablet 1000 MCG PO (08:09)
[2020-01-12] MEDS: Sertraline 50 MG Tablet PO (08:09)
[2020-01-12] MEDS: Spironolactone 25 MG Tablet PO ×2 (08:09→23:19)
[2020-01-12] MEDS: Enoxaparin 40 MG/0.4 ML Syringe SC (08:10)
[2020-01-12] MEDS: Aspirin 325 MG Tablet PO (08:19)
[2020-01-12] MEDS: Acetaminophen 325 MG Tablet 650 MG PO (08:19)
--- NOTE | 2020-01-12 08:54 | PCM.PN.SRG ---
Patient Problems: Active and Suspected Problems (Last Reviewed 01/10/20 @ 20:26 by Susie Holder DO) Cellulitis and abscess of right leg (Acute) Hyperglycemia (Acute) with no hx of DM II Subjective: Status post I&D of right lower blanchard, patient states pain is slightly improved. - Physical Exam Vitals/I&O's: Vital Signs Temp Pulse Resp BP Pulse Ox 98.0 F 78 18 114/65 90 01/12/20 08:05 01/12/20 08:09 01/12/20 08:05 01/12/20 08:09 01/12/20 08:05 Oxygen Flow Rate (L/min) 2 Oxygen Delivery Method Room Air Weight: 339 lb 5 oz Body Mass Index (BMI) 46.0 Intake and Output for Last 24 Hours 01/10/20 01/11/20 01/12/20 23:59 23:59 23:59 Intake Total 115.50 / 265.50 1525.92 / 2245.92 1698.33 / 1698.33 Balance 115.50 / 265.50 1525.92 / 2245.92 1698.33 / 1698.33 General: Alert, Oriented x3, Cooperative, No apparent distress HEENT: Atraumatic Lungs: Normal air movement Cardiovascular: Regular rate Extremities: - - Right lower blanchard, I&D site packed with iodoform?changed at bedside, still erythema about 4 cm surrounding wound, slight decrease in swelling Microbiology Past 72 Hours 01/10/20 17:20 Abs - Leg Gram Stain - Final 01/10/20 17:20 Abs - Leg Wound Culture - Preliminary No growth-Final to follow Laboratory Results 01/11/20 09:46: WBC 13.9 H, RBC 4.81, Hgb 15.1, Hct 48.8, MCV 101.5 H, MCH 31.4, MCHC 30.9 L, RDW Std Deviation 49.3 H, RDW Coeff of Valerie 13.2, Plt Count 188, MPV 10.1, Immature Gran % (Auto) 1.000 H, Neut % (Auto) 77.8 H, Lymph % (Auto) 12.7 L, [place] % (Auto) 8.0, Eos % (Auto) 0.1, Baso % (Auto) 0.4, Absolute Neuts (auto) 10.8 H, Absolute Lymphs (auto) 1.76, Nucleated RBC % 0 01/11/20 09:46: Sodium 136, Potassium 4.1, Chloride 96 L, Carbon Dioxide 35.0 H, Anion Gap 5, BUN 13, Creatinine 0.91, Estim Creat Clear Calc 105.41, Est GFR (MDRD) Af Amer 113, Est GFR (MDRD) Non-Af 93, BUN/Creatinine Ratio 14.3, Glucose 150 H, Calcium 9.0 01/11/20 09:46: Hemoglobin A1c 5.5 01/12/20 05:55: WBC 10.7, RBC 4.52 L, Hgb 14.4, Hct 45.8, MCV 101.3 H, MCH 31.9, MCHC 31.4 L, RDW Std Deviation 48.3 H, RDW Coeff of Valerie 12.9, Plt Count 169, MPV 10.5, Immature Gran % (Auto) 1.000 H, Neut % (Auto) 71.3 H, Lymph % (Auto) 17.1 L, [place] % (Auto) 9.3, Eos % (Auto) 0.7, Baso % (Auto) 0.6, Absolute Neuts (auto) 7.6, Absolute Lymphs (auto) 1.83, Nucleated RBC % 0 01/12/20 05:55: Sodium 134 L, Potassium 4.1, Chloride 99, Carbon Dioxide 37.0 H, Anion Gap -2 L, BUN 11, Creatinine 0.66 L, Estim Creat Clear Calc 145.34, Est GFR (MDRD) Af Amer 164, Est GFR (MDRD) Non-Af 136, BUN/Creatinine Ratio 16.7, Glucose 106, Calcium 8.5 Current Medications Acetaminophen (Tylenol) 650 mg PO Q6H PRN PRN PRN Reason: Pain Score 1-10/Temp > 100.7 F Last Admin: 01/12/20 08:19 Dose: 650 mg Documented by: Acetylcysteine (Mucomyst) 600 mg PO BID EFRAIN Last Admin: 01/11/20 22:40 Dose: 600 mg Documented by: Al Hydroxide/Mg Hydroxide (Mylanta Ii) 30 ml PO Q6H PRN PRN PRN Reason: Gastric Burning Albuterol Sulfate (Ventolin Aerosols) 2.5 mg INHALATION Q4H PRN PRN Reason: shortness of breath or wheezing Last Admin: 01/11/20 15:56 Dose: 2.5 mg Documented by: Albuterol/Ipratropium (Duoneb) 3 ml INHALATION Q6HWA.RT [facility] Last Admin: 01/12/20 07:10 Dose: Not Given Documented by: Aspirin (Aspirin) 325 mg PO DAILY@0800 [facility] Last Admin: 01/12/20 08:19 Dose: 325 mg Documented by: Benzonatate (Tessalon Perle) 200 mg PO TID PRN PRN PRN Reason: COUGH Last Admin: 01/12/20 03:38 Dose: 200 mg Documented by: Budesonide (Pulmicort Aerosol) 0.5 mg INHALATION Q12H.RT [facility] Last Admin: 01/12/20 06:46 Dose: 0.5 mg Documented by: Cyanocobalamin (Vitamin B12) 1,000 mcg PO DAILY [facility] Last Admin: 01/12/20 08:09 Dose: 1,000 mcg Documented by: Enoxaparin Sodium (Lovenox) 40 mg SC DAILY [facility] Last Admin: 01/12/20 08:10 Dose: 40 mg Documented by: Fluticasone Propionate (Flonase Nasal [place]) 2 spray NASAL DAILY [facility] Last Admin: 01/12/20 08:11 Dose: Not Given Documented by: Furosemide (Lasix) 40 mg PO BIDLX [facility] Last Admin: 01/12/20 08:08 Dose: 40 mg Documented by: Guaifenesin (Mucinex) 1,200 mg PO Q12H PRN PRN PRN Reason: COUGH Last Admin: 01/12/20 03:38 Dose: 1,200 mg Documented by: Sodium Chloride () 250 mls @ 15 mls/hr IV .[id number] PRN PRN Reason: Saline Flush Last Infusion: 01/11/20 07:04 Dose: 0 mls/hr Documented by: Sodium Chloride () 250 mls @ 15 mls/hr IV .[id number] PRN PRN Reason: Additional IVPB Infusion Sodium Chloride () 1,000 mls @ 50 mls/hr IV .Q20H EFRAIN Last Infusion: 01/12/20 07:04 Dose: 50 mls/hr Documented by: Cefazolin Sodium 2 gm/ Sodium (Chloride) 110 mls @ 150 mls/hr IV Q8 [facility] Last Infusion: 01/12/20 07:04 Dose: Infused Documented by: Ibuprofen (Motrin) 400 mg PO Q6H PRN PRN PRN Reason: Pain Score 1-10/Temp > 100.7 F Last Admin: 01/12/20 06:28 Dose: 400 mg Documented by: Loratadine (Claritin) 10 mg PO DAILY [facility] Last Admin: 01/12/20 08:09 Dose: 10 mg Documented by: Magnesium Hydroxide (Milk Of Magnesia) 30 ml PO DAILY PRN PRN PRN Reason: Constipation Melatonin (Melatonin) 3 mg PO QHS PRN PRN PRN Reason: INSOMNIA Last Admin: 01/11/20 22:38 Dose: 3 mg Documented by: Metoprolol Succinate (Toprol Xl (Beta Irina)) 50 mg PO DAILY [facility] Last Admin: 01/12/20 08:09 Dose: 50 mg Documented by: Montelukast Sodium (Singulair) 10 mg PO QPM [facility] Last Admin: 01/11/20 22:37 Dose: 10 mg Documented by: Morphine Sulfate () 4 mg IV Q3H PRN PRN PRN Reason: Pain Score 6-10/10 Last Admin: 01/11/20 15:19 Dose: 4 mg Documented by: Multivitamins (Multivitamin) 1 tablet PO DAILY@0800 [facility] Last Admin: 01/12/20 08:08 Dose: 1 tablet Documented by: Nicotine (Nicoderm Cq (Pbkc)) 14 mg TRANSDERM. DAILY [facility] Last Admin: 01/11/20 23:34 Dose: 14 mg Documented by: Non-Formulary Medication (Mepolizumab) 100 mg SC Q4W [facility] Ondansetron HCl (Zofran) 4 mg IV Q8H PRN PRN PRN Reason: NAUSEA/VOMITING Oxycodone HCl (Oxyir) 5 - 10 mg PO Q4H PRN PRN PRN Reason: Pain Score 4-5/10 Last Admin: 01/12/20 08:18 Dose: 10 mg Documented by: Prochlorperazine Edisylate (Compazine Iv) 5 mg IV Q4H PRN PRN PRN Reason: Breakthrough nausea/vomiting Sertraline HCl (Zoloft) 50 mg PO DAILY [facility] Last Admin: 01/12/20 08:09 Dose: 50 mg Documented by: Sodium Chloride () 10 - 40 ml IV UD PRN PRN Reason: SALINE FLUSH Last Admin: 01/11/20 06:07 Dose: 20 ml Documented by: Spironolactone (Aldactone) 25 mg PO BID EFRAIN Last Admin: 01/12/20 08:09 Dose: 25 mg Documented by: Medical Necessity - Tobacco Use Smoking Status: Current some day smoker Tobacco Use: Cigarettes Assessment/Plan All Active Problems (Last Reviewed 01/10/20 @ 20:26 by Susie Holder DO) Cellulitis and abscess of right leg (Acute) Hyperglycemia (Acute) Acute respiratory failure with hypoxia and hypercapnia (Resolved) Acute sinusitis (Resolved) History of hernia repair (Resolved ~08/2018) History of tonsillectomy (Resolved) History of tooth extraction (Resolved) Incarcerated umbilical hernia (Resolved) Pneumonia (Resolved) Tobacco dependence (Resolved) 49-year-old male with right lower blanchard abscess/cellulitis/hematoma 1. Continue changing packing twice daily. 2. Continue antibiotics per primary, white blood cell count down to 10.9 from 13, cultures pending Honey Gagnon M.D. Pager: [phone] [facility] [address] [place] [address], [facility], [address] [place] [address] Office: [phone]
--- NOTE | 2020-01-12 09:48 | VDLE_ITS ---
Reason For Study: RLE cellulitis and ulcer RIGHT LEFT GSV is normal. GSV is normal. CFV is compressible, spontaneous, phasic, CFV is compressible, spontaneous, phasic, competent and demonstrates normal competent, and demonstrates normal augmentation. augmentation. FV is compressible, spontaneous, phasic, FV is compressible, spontaneous, phasic, competent and demonstrates normal competent and demonstrates normal augmentation. augmentation. POP V is compressible, spontaneous, phasic, POP V is compressible, spontaneous, phasic, competent and demonstrates normal competent and demonstrates normal augmentation. augmentation. T/P Trunk is compressible. T/P Trunk is compressible. PTV is compressible. PTV is compressible. RT PerV is compressible. LT PerV is compressible. Procedure Exam performed portable in patient room. The study was technically difficult. Due to body habitus. A preliminary report was called and/or faxed to [facility]. Interpretation Summary No evidence for acute deep venous thrombosis bilateral lower extremities with patent and compressible bilateral great saphenous veins. Technically difficult examination secondary to body habitus Ordering Physician: Martin Goetz Referring Physician: Yumi Peralta Performed By: Linda Dimas, JULIO, RVT
--- NOTE | 2020-01-12 10:10 | CASEMGMT ---
RN CM Face to Face with patient for initial transition planning/care coordination assessment. RN CM introduced self and role at [facility]. Patient sitting in chair, alert and oriented. Patient willing to participate in assessment and is able to answer all questions appropriately. Care providers, pharmacy, and demographics verified. Patient wishes to discharge home, denies need for home health at this time. Patient states he has no further needs or concerns at this time. CM to follow for discharge planning needs that may arise. PCP: Fabian Specialists: Norm, fast brim pouncer; [facility] Preferred [facility]acy: [facility] Insurance: [facility] Prescription Benefit: yes Living Will/HPOA: none LNOK: son and girlfriend Living Arrangements: patient lives with son and girlfriend in mobile home with 4 steps and railing to enter the home. Transportation: self/family DME/HHC: Patient has Bipap, nebulizer, and oxygen 2 lpm [employer]. Patient denies DME Disposition Plan: Patient to discharge home with family support and follow-up plans in place. Ariana ZUNIGA, RN, CM
--- NOTE | 2020-01-12 10:27 | PCM.PN.HOSP ---
Patient Problems: Active and Suspected Problems (Last Reviewed 01/10/20 @ 20:26 by Susie Holder DO) Cellulitis and abscess of right leg (Acute) Hyperglycemia (Acute) with no hx of DM II Reason for Visit: Right leg cellulitis with small hematoma Objective: Patient has chronic shortness of breath secondary to pulmonary hypertension and CHF. Patient also states he has peripheral arterial disease but denies DVT/PE Vitals/I&O's: Vital Signs Temp Pulse Resp BP Pulse Ox 98.0 F 78 18 114/65 90 01/12/20 08:05 01/12/20 08:09 01/12/20 08:05 01/12/20 08:09 01/12/20 08:05 Oxygen Flow Rate (L/min) 2 Oxygen Delivery Method Room Air Weight: 339 lb 5 oz Body Mass Index (BMI) 46.0 Intake and Output for Last 24 Hours 01/10/20 01/11/20 01/12/20 23:59 23:59 23:59 Intake Total 115.50 / 265.50 1525.92 / 2245.92 1698.33 / 1698.33 Balance 115.50 / 265.50 1525.92 / 2245.92 1698.33 / 1698.33 General: Alert, Oriented x3, Cooperative HEENT: Atraumatic, PERRLA, EOMI, Normocephalic Neck: Supple, No JVD, Negative Carotid Bruits Lungs: Clear to auscultation, No rhonchi, No wheeze, No rales, Diminished Cardiovascular: Regular rate, Regular Rhythm, Normal S1, Normal S2, Murmur - Systolic murmur over left lower border Abdomen: Bowel Sounds Present, Soft, Non Tender, Non-Distended Extremities: Capillary Refill Less than 3 Seconds, Edema Skin: Ulcer/ Wound - Extent of redness has decreased. Small swelling near the hematoma. Still tenderness and induration present. Musculoskeletal: No Tenderness to Palpation of Joints or Extremities, Arthritic Changes Neurological: Cranial nerves II-XII grossly intact Psych/Mental Status: Normal Affect, Appropriate Microbiology Past 72 Hours 01/10/20 17:20 Abs - Leg Gram Stain - Final 01/10/20 17:20 Abs - Leg Wound Culture - Preliminary No growth-Final to follow Laboratory Results 01/12/20 05:55: WBC 10.7, RBC 4.52 L, Hgb 14.4, Hct 45.8, MCV 101.3 H, MCH 31.9, MCHC 31.4 L, RDW Std Deviation 48.3 H, RDW Coeff of Valerie 12.9, Plt Count 169, MPV 10.5, Immature Gran % (Auto) 1.000 H, Neut % (Auto) 71.3 H, Lymph % (Auto) 17.1 L, [place] % (Auto) 9.3, Eos % (Auto) 0.7, Baso % (Auto) 0.6, Absolute Neuts (auto) 7.6, Absolute Lymphs (auto) 1.83, Nucleated RBC % 0 01/12/20 05:55: Sodium 134 L, Potassium 4.1, Chloride 99, Carbon Dioxide 37.0 H, Anion Gap -2 L, BUN 11, Creatinine 0.66 L, Estim Creat Clear Calc 145.34, Est GFR (MDRD) Af Amer 164, Est GFR (MDRD) Non-Af 136, BUN/Creatinine Ratio 16.7, Glucose 106, Calcium 8.5 Current Medications Acetaminophen (Tylenol) 650 mg PO Q6H PRN PRN PRN Reason: Pain Score 1-10/Temp > 100.7 F Last Admin: 01/12/20 08:19 Dose: 650 mg Documented by: Acetylcysteine (Mucomyst) 600 mg PO BID [facility] Last Admin: 01/11/20 22:40 Dose: 600 mg Documented by: Al Hydroxide/Mg Hydroxide (Mylanta Ii) 30 ml PO Q6H PRN PRN PRN Reason: Gastric Burning Albuterol Sulfate (Ventolin Aerosols) 2.5 mg INHALATION Q4H PRN PRN Reason: shortness of breath or wheezing Last Admin: 01/11/20 15:56 Dose: 2.5 mg Documented by: Albuterol/Ipratropium (Duoneb) 3 ml INHALATION Q6HWA.RT [facility] Last Admin: 01/12/20 07:10 Dose: Not Given Documented by: Aspirin (Aspirin) 325 mg PO DAILY@0800 [facility] Last Admin: 01/12/20 08:19 Dose: 325 mg Documented by: Benzonatate (Tessalon Perle) 200 mg PO TID PRN PRN PRN Reason: COUGH Last Admin: 01/12/20 03:38 Dose: 200 mg Documented by: Budesonide (Pulmicort Aerosol) 0.5 mg INHALATION Q12H.RT [facility] Last Admin: 01/12/20 06:46 Dose: 0.5 mg Documented by: Cyanocobalamin (Vitamin B12) 1,000 mcg PO DAILY [facility] Last Admin: 01/12/20 08:09 Dose: 1,000 mcg Documented by: Enoxaparin Sodium (Lovenox) 40 mg SC DAILY [facility] Last Admin: 01/12/20 08:10 Dose: 40 mg Documented by: Fluticasone Propionate (Flonase Nasal [place]) 2 spray NASAL DAILY [facility] Last Admin: 01/12/20 08:11 Dose: Not Given Documented by: Furosemide (Lasix) 40 mg PO BIDLX [facility] Last Admin: 01/12/20 08:08 Dose: 40 mg Documented by: Guaifenesin (Mucinex) 1,200 mg PO Q12H PRN PRN PRN Reason: COUGH Last Admin: 01/12/20 03:38 Dose: 1,200 mg Documented by: Sodium Chloride () 250 mls @ 15 mls/hr IV .[id number] PRN PRN Reason: Saline Flush Last Infusion: 01/11/20 07:04 Dose: 0 mls/hr Documented by: Sodium Chloride () 250 mls @ 15 mls/hr IV .[id number] PRN PRN Reason: Additional IVPB Infusion Sodium Chloride () 1,000 mls @ 50 mls/hr IV .Q20H [facility] Last Infusion: 01/12/20 07:04 Dose: 50 mls/hr Documented by: Cefazolin Sodium 2 gm/ Sodium (Chloride) 110 mls @ 150 mls/hr IV Q8 [facility] Last Infusion: 01/12/20 07:04 Dose: Infused Documented by: Ibuprofen (Motrin) 400 mg PO Q6H PRN PRN PRN Reason: Pain Score 1-10/Temp > 100.7 F Last Admin: 01/12/20 06:28 Dose: 400 mg Documented by: Loratadine (Claritin) 10 mg PO DAILY [facility] Last Admin: 01/12/20 08:09 Dose: 10 mg Documented by: Magnesium Hydroxide (Milk Of Magnesia) 30 ml PO DAILY PRN PRN PRN Reason: Constipation Melatonin (Melatonin) 3 mg PO QHS PRN PRN PRN Reason: INSOMNIA Last Admin: 01/11/20 22:38 Dose: 3 mg Documented by: Metoprolol Succinate (Toprol Xl (Beta Irina)) 50 mg PO DAILY [facility] Last Admin: 01/12/20 08:09 Dose: 50 mg Documented by: Montelukast Sodium (Singulair) 10 mg PO QPM [facility] Last Admin: 01/11/20 22:37 Dose: 10 mg Documented by: Morphine Sulfate () 4 mg IV Q3H PRN PRN PRN Reason: Pain Score 6-10/10 Last Admin: 01/11/20 15:19 Dose: 4 mg Documented by: Multivitamins (Multivitamin) 1 tablet PO DAILY@0800 [facility] Last Admin: 01/12/20 08:08 Dose: 1 tablet Documented by: Nicotine (Nicoderm Cq (Pbkc)) 14 mg TRANSDERM. DAILY [facility] Last Admin: 01/11/20 23:34 Dose: 14 mg Documented by: Non-Formulary Medication (Mepolizumab) 100 mg SC Q4W [facility] Ondansetron HCl (Zofran) 4 mg IV Q8H PRN PRN PRN Reason: NAUSEA/VOMITING Oxycodone HCl (Oxyir) 5 - 10 mg PO Q4H PRN PRN PRN Reason: Pain Score 4-5/10 Last Admin: 01/12/20 08:18 Dose: 10 mg Documented by: Prochlorperazine Edisylate (Compazine Iv) 5 mg IV Q4H PRN PRN PRN Reason: Breakthrough nausea/vomiting Sertraline HCl (Zoloft) 50 mg PO DAILY [facility] Last Admin: 01/12/20 08:09 Dose: 50 mg Documented by: Sodium Chloride () 10 - 40 ml IV UD PRN PRN Reason: SALINE FLUSH Last Admin: 01/11/20 06:07 Dose: 20 ml Documented by: Spironolactone (Aldactone) 25 mg PO BID [facility] Last Admin: 01/12/20 08:09 Dose: 25 mg Documented by: STROKE Vital Signs/Narrative: Vital Signs Temp Pulse Resp BP Pulse Ox 01/12/20 08:09 78 114/65 01/12/20 08:05 98.0 F 78 18 114/65 90 01/12/20 07:58 90 01/12/20 07:10 81 20 H Medical Necessity - Tobacco Use Smoking Status: Current some day smoker Tobacco Use: Cigarettes Assessment/Plan All Active Problems (Last Reviewed 01/10/20 @ 20:26 by Susie Holder DO) Cellulitis and abscess of right leg (Acute) Hyperglycemia (Acute) Acute respiratory failure with hypoxia and hypercapnia (Resolved) Acute sinusitis (Resolved) History of hernia repair (Resolved ~08/2018) History of tonsillectomy (Resolved) History of tooth extraction (Resolved) Incarcerated umbilical hernia (Resolved) Pneumonia (Resolved) Tobacco dependence (Resolved) There is a 49 gentleman with multiple comorbidities including class IV COPD, chronic hypoxic and hypercarbic respiratory failure, chronic metabolic alkalosis, pulmonary hypertension, right ventricular failure on, from sleep apnea admitted with swelling, redness, pain and tenderness of right lower extremity after hit by a golf ball about 1 week ago. He has a small bruise/hematoma around it. Complains of subjective fever at home. Assessment and plan: 1. Cellulitis and abscess of the right lower leg with small hematoma: Patient admitted [facility] floor. IV fluid normal saline at 50 mils per hour as CT lower extremity with contrast is ordered. Ultrasound not available on the weekend. Discussed with surgeon Dr. Gagnon and I think, he needs incision and drainage. Elevate, weight bearing as tolerated, and Ancef increased to 2 g IV every 8 hourly. Swab from the hematoma, opened by Dr. Dumont, sent for culture. Gram stain from that shows no growth. 01/12: Patient was seen by surgeon. CT abdomen with contrast was done yesterday and shows no focal fluid collection or evidence of osteomyelitis but superficial subcutaneous cellulitis. Had hematoma drained by surgeon. Venous Doppler lower extremity ordered. Denies history of DVT or PE but possible has chronic arterial insufficiency/peripheral arterial disease. Has varicose vein and possible deep venous valvular incompetence. Will need outpatient HORTENSIA. On aspirin 325 mg daily. 2. hyperglycemia with no hx of DM II -A1c 5.5. It means hyperglycemic but not diabetes mellitus, probably might any steroid.. 3. Stage IV COPD, pulmonary hypertension, chronic hypoxic and hypercarbic respiratory failure, LAYLA: Patient had echo in November 2015 which shows estimated EF 50%, normal right and left atrium. Moderately dilated RV with moderate global right ventricular dysfunction. Unable to estimate RVSP. IVC dilated. Overall, echo is suggestive of chronic systolic right and left-sided heart failure with pulmonary hypertension. Lasix and hold as patient has cellulitis and is getting CT scan. 2D echo was done and reviewed. The estimated ejection fraction is 65 %. Normal diastology for age. Trivial tricuspid valve insufficiency. Right ventricular systolic pressure estimated to be 57 mmHg. At least moderate pulmonary hypertension; may be underestimated. In comparison to echo report dated 11/17/2017, LV function has remained the same. chronic medical conditions include:anxiety/depression, ongoing tobacco dependence-complicate care, management and prognosis. Continue home medications. Microbiology Past 72 Hours 01/10/20 17:20 Abs - Leg Gram Stain - Final 01/10/20 17:20 Abs - Leg Wound Culture - Preliminary No growth-Final to follow Laboratory Results 01/12/20 05:55: WBC 10.7, RBC 4.52 L, Hgb 14.4, Hct 45.8, MCV 101.3 H, MCH 31.9, MCHC 31.4 L, RDW Std Deviation 48.3 H, RDW Coeff of Valerie 12.9, Plt Count 169, MPV 10.5, Immature Gran % (Auto) 1.000 H, Neut % (Auto) 71.3 H, Lymph % (Auto) 17.1 L, Ness % (Auto) 9.3, Eos % (Auto) 0.7, Baso % (Auto) 0.6, Absolute Neuts (auto) 7.6, Absolute Lymphs (auto) 1.83, Nucleated RBC % 0 01/12/20 05:55: Sodium 134 L, Potassium 4.1, Chloride 99, Carbon Dioxide 37.0 H, Anion Gap -2 L, BUN 11, Creatinine 0.66 L, Estim Creat Clear Calc 145.34, Est GFR (MDRD) Af Amer 164, Est GFR (MDRD) Non-Af 136, BUN/Creatinine Ratio 16.7, Glucose 106, Calcium 8.5 Clinical Impression(s) from Imaging Studies Lower Extremity CT 01/11/20 12:53 IMPRESSION: Superficial subcutaneous soft tissue edema compatible with cellulitis. No focal fluid collections and no evidence of osteomyelitis. Code Visit Inpatient E&M: 10154 Subs Hosp L3
[2020-01-12] MEDS: Ipratropium/Albuterol Sulfate 3 ML AMPUL.NEB INHALATION ×2 (10:49→19:30)
[2020-01-12] MEDS: 0.9% Normal Saline 1,000 ML 50 ML IV (12:24)
[2020-01-12] MEDS: 0.9% Saline Lock 10 ML Syringe IV ×2 (14:57→23:25)
[2020-01-12] MEDS: Albuterol 2.5 MG/3 ML VIAL.NEB. INHALATION (15:22)
[2020-01-12] MEDS: Montelukast 10 MG Tablet PO (23:18)
[2020-01-12] MEDS: MELATONIN 3 MG TABLET PO (23:32)
[2020-01-13] VITALS (9 sets, daily range): BP systolic 110–157; BP diastolic 58–84; PULSE 70–90; RESP 18–22; TEMP 36.4–37; O2SAT 91–95
[2020-01-13] MEDS: Albuterol 2.5 MG/3 ML VIAL.NEB. INHALATION ×2 (01:00→14:54)
[2020-01-13] MEDS: Ibuprofen 400 MG Tablet PO (04:10)
[2020-01-13] MEDS: Ipratropium/Albuterol Sulfate 3 ML AMPUL.NEB INHALATION ×2 (05:15→10:55)
[2020-01-13] MEDS: Budesonide Respules 0.5 MG/2 ML AMPUL.NEB. INHALATION (05:25)
[2020-01-13] MEDS: Cefazolin 2 GM in 0.9% Normal Saline 100 ML IV (05:57)
[2020-01-13 06:10] LABS: Anion Gap 4 (5-15); BUN 12 mg/dL (7-18); BUN/Creat Ratio 16.1 RATIO (10-20); Calcium,Total 8.7 mg/dL (8.5-10.1); Chloride 96 mmol/L (98-107); Creatinine, Serum 0.75 mg/dL (0.70-1.30); EST Glomerular Filtration Rate 117 mL/min (>60); Est Glom Filt Rate - Afr Amer 142 mL/min (>60); Glucose 111 mg/dL (74-106); Potassium 3.7 mmol/L (3.5-5.1); Sodium Level 135 mmol/L (136-145)
[2020-01-13] MEDS: Aspirin 325 MG Tablet PO (08:34)
[2020-01-13] MEDS: Furosemide 40 MG Tablet PO (08:35)
[2020-01-13] MEDS: Multivitamins,Therapeutic Tablet 1 TABLET PO (08:35)
[2020-01-13] MEDS: Cyanocobalamin 500 MCG Tablet 1000 MCG PO (08:35)
[2020-01-13] MEDS: Loratadine 10 MG Tablet PO (08:36)
--- NOTE | 2020-01-13 09:08 | PCM.PN.SRG ---
Patient Problems: Active and Suspected Problems (Last Reviewed 01/10/20 @ 20:26 by Susie Holder DO) Cellulitis and abscess of right leg (Acute) Hyperglycemia (Acute) with no hx of DM II Subjective: Patient still states the lower leg feels warm, patient on Ancef IV - Physical Exam Vitals/I&O's: Vital Signs Temp Pulse Resp BP Pulse Ox 97.5 F L 90 18 139/80 H 91 01/13/20 03:42 01/13/20 05:15 01/13/20 05:15 01/13/20 03:42 01/13/20 07:50 Oxygen Flow Rate (L/min) 2 Oxygen Delivery Method Room Air Weight: 339 lb 5 oz Body Mass Index (BMI) 46.0 Intake and Output for Last 24 Hours 01/11/20 01/12/20 01/13/20 23:59 23:59 23:59 Intake Total 1525.92 / 2245.92 3629.16 / 3979.16 960 / 960 Balance 1525.92 / 2245.92 3629.16 / 3979.16 960 / 960 General: Alert, Oriented x3, Cooperative, No apparent distress HEENT: Atraumatic Lungs: Normal air movement Extremities: - - Right lower leg: Iodoform packed in the I&D site, erythema appeared to have lightened, no lower extremity blanchard does have, shiny appearance patient also has some degree of peripheral vascular disease. Microbiology Past 72 Hours 01/11/20 15:20 Wound - Leg, Right Gram Stain - Final 01/10/20 17:20 Abs - Leg Gram Stain - Final 01/10/20 17:20 Abs - Leg Wound Culture - Preliminary No growth-Final to follow Laboratory Results 01/13/20 05:20: Sodium 135 L, Potassium 3.7, Chloride 96 L, Carbon Dioxide 35.0 H, Anion Gap 4 L, BUN 12, Creatinine 0.75, Estim Creat Clear Calc 127.90, Est GFR (MDRD) Af Amer 142, Est GFR (MDRD) Non-Af 117, BUN/Creatinine Ratio 16.1, Glucose 111 H, Calcium 8.7 Current Medications Acetaminophen (Tylenol) 650 mg PO Q6H PRN PRN PRN Reason: Pain Score 1-10/Temp > 100.7 F Last Admin: 01/12/20 08:19 Dose: 650 mg Documented by: Al Hydroxide/Mg Hydroxide (Mylanta Ii) 30 ml PO Q6H PRN PRN PRN Reason: Gastric Burning Albuterol Sulfate (Ventolin Aerosols) 2.5 mg INHALATION Q4H PRN PRN Reason: shortness of breath or wheezing Last Admin: 01/13/20 01:00 Dose: 2.5 mg Documented by: Albuterol/Ipratropium (Duoneb) 3 ml INHALATION Q6HWA.RT [facility] Last Admin: 01/13/20 05:15 Dose: 3 ml Documented by: Aspirin (Aspirin) 325 mg PO DAILY@0800 [facility] Last Admin: 01/13/20 08:34 Dose: 325 mg Documented by: Benzonatate (Tessalon Perle) 200 mg PO TID PRN PRN PRN Reason: COUGH Last Admin: 01/12/20 03:38 Dose: 200 mg Documented by: Budesonide (Pulmicort Aerosol) 0.5 mg INHALATION Q12H.RT [facility] Last Admin: 01/13/20 05:25 Dose: 0.5 mg Documented by: Cyanocobalamin (Vitamin B12) 1,000 mcg PO DAILY [facility] Last Admin: 01/13/20 08:35 Dose: 1,000 mcg Documented by: Enoxaparin Sodium (Lovenox) 40 mg SC DAILY [facility] Last Admin: 01/12/20 08:10 Dose: 40 mg Documented by: Fluticasone Propionate (Flonase Nasal [place]) 2 spray NASAL DAILY [facility] Last Admin: 01/12/20 08:11 Dose: Not Given Documented by: Furosemide (Lasix) 40 mg PO BIDLX [facility] Last Admin: 01/13/20 08:35 Dose: 40 mg Documented by: Guaifenesin (Mucinex) 1,200 mg PO Q12H PRN PRN PRN Reason: COUGH Last Admin: 01/12/20 03:38 Dose: 1,200 mg Documented by: Sodium Chloride () 250 mls @ 15 mls/hr IV .[id number] PRN PRN Reason: Saline Flush Last Infusion: 01/11/20 07:04 Dose: 0 mls/hr Documented by: Sodium Chloride () 250 mls @ 15 mls/hr IV .[id number] PRN PRN Reason: Additional IVPB Infusion Cefazolin Sodium 2 gm/ Sodium (Chloride) 110 mls @ 150 mls/hr IV Q8 [facility] Last Admin: 01/13/20 05:57 Dose: 150 mls/hr Documented by: Ibuprofen (Motrin) 400 mg PO Q6H PRN PRN PRN Reason: Pain Score 1-10/Temp > 100.7 F Last Admin: 01/13/20 04:10 Dose: 400 mg Documented by: Loratadine (Claritin) 10 mg PO DAILY [facility] Last Admin: 01/13/20 08:36 Dose: 10 mg Documented by: Magnesium Hydroxide (Milk Of Magnesia) 30 ml PO DAILY PRN PRN PRN Reason: Constipation Melatonin (Melatonin) 3 mg PO QHS PRN PRN PRN Reason: INSOMNIA Last Admin: 01/12/20 23:32 Dose: 3 mg Documented by: Metoprolol Succinate (Toprol Xl (Beta Irina)) 50 mg PO DAILY [facility] Last Admin: 01/12/20 08:09 Dose: 50 mg Documented by: Montelukast Sodium (Singulair) 10 mg PO QPM [facility] Last Admin: 01/12/20 23:18 Dose: 10 mg Documented by: Morphine Sulfate () 4 mg IV Q3H PRN PRN PRN Reason: Pain Score 6-10/10 Last Admin: 01/11/20 15:19 Dose: 4 mg Documented by: Multivitamins (Multivitamin) 1 tablet PO DAILY@0800 [facility] Last Admin: 01/13/20 08:35 Dose: 1 tablet Documented by: Nicotine (Nicoderm Cq (Pbkc)) 14 mg TRANSDERM. DAILY [facility] Last Admin: 01/12/20 19:02 Dose: 14 mg Documented by: Ondansetron HCl (Zofran) 4 mg IV Q8H PRN PRN PRN Reason: NAUSEA/VOMITING Oxycodone HCl (Oxyir) 5 - 10 mg PO Q4H PRN PRN PRN Reason: Pain Score 4-5/10 Last Admin: 01/12/20 23:23 Dose: 10 mg Documented by: Prochlorperazine Edisylate (Compazine Iv) 5 mg IV Q4H PRN PRN PRN Reason: Breakthrough nausea/vomiting Sertraline HCl (Zoloft) 50 mg PO DAILY [facility] Last Admin: 01/12/20 08:09 Dose: 50 mg Documented by: Sodium Chloride () 10 - 40 ml IV UD PRN PRN Reason: SALINE FLUSH Last Admin: 01/12/20 23:25 Dose: 10 ml Documented by: Spironolactone (Aldactone) 25 mg PO BID [facility] Last Admin: 01/12/20 23:19 Dose: 25 mg Documented by: Medical Necessity - Tobacco Use Smoking Status: Current some day smoker Tobacco Use: Cigarettes Assessment/Plan All Active Problems (Last Reviewed 01/10/20 @ 20:26 by Susie Holder DO) Cellulitis and abscess of right leg (Acute) Hyperglycemia (Acute) Acute respiratory failure with hypoxia and hypercapnia (Resolved) Acute sinusitis (Resolved) History of hernia repair (Resolved ~08/2018) History of tonsillectomy (Resolved) History of tooth extraction (Resolved) Incarcerated umbilical hernia (Resolved) Pneumonia (Resolved) Tobacco dependence (Resolved) 49-year-old male with right lower blanchard abscess/cellulitis/hematoma 1. Patient on Ancef IV, cultures still not growing any organisms. Likely some extent of the redness of the blanchard has still with patient's peripheral vascular disease continue packing the I&D site with iodoform. Honey Gagnon M.D. Pager: [phone] [facility] [address] [place] [address], [facility], [address] [place] [id number] Office: [phone]
--- NOTE | 2020-01-13 10:16 | DCINST_ITS ---
- Discharge Diagnoses Current Active Problems: Current Active and Chronic Problems (Last Reviewed 01/10/20 @ 20:26 by Susie Holder DO) Cellulitis and abscess of right leg (Acute) Metabolic alkalosis (Chronic) Hyperglycemia (Acute) with no hx of DM II You will use the following diet at home:: Cardiac Your food should be the consistency of: Regular Discharge Activity: May Not Drive Call your doctor if you observe: Fever of 101 or Higher, Coldness, Increased Pain, Numbness or Tingling, Inability to have a bowel movement, Shortness of breath, Dizziness, Fainting spells, Chest pain, Increased palpitations (irregular heartbeat), Uncontrolled pain Allergies/Adverse Reactions: Allergies clarithromycin [From Biaxin] Allergy (Verified 01/10/20 17:00) Hives Penicillins Allergy (Verified 01/10/20 17:00) Hives Medications to take at Discharge Furosemide [Lasix] 40 mg PO BID 12/02/15 Spironolactone [Aldactone] 25 mg PO BID 12/02/15 Multivitamin [Multiple Vitamins] 1 ea PO DAILY 11/16/17 tiotropium bromide 18 mcg capsule with inhalation device 18 mcg INHALATION PRN PRN 02/21/18 Guaifenesin [Guaifenesin ER] 1,200 mg PO Q12H PRN 09/13/18 Metoprolol Succinate 50 mg PO DAILY 09/13/18 fluticasone propionate 50 mcg/actuation nasal spray,suspension 2 spray INTRANASAL DAILY #16 g 12/25/18 benzonatate 200 mg capsule 200 mg PO TID PRN #90 cap 12/30/18 mepolizumab 100 mg subcutaneous solution 100 mg SC Q4W #1 ea 04/17/19 albuterol sulfate 90 mcg/actuation aerosol inhaler 2 puff INHALATION Q4H PRN #18 g 05/05/19 albuterol sulfate 2.5 mg INHALATION Q4H PRN #180 ml 06/27/19 ipratropium 0.5 mg-albuterol 3 mg (2.5 mg base)/3 mL nebulization soln 3 ml INHALATION Q6HWA.RT #180 vial 06/30/19 budesonide-formoterol HFA 160 mcg-4.5 mcg/actuation aerosol inhaler 2 puff I NHALATION BID #3 device 08/05/19 ipratropium bromide 0.02 % solution for inhalation 0.5 mg INHALATION Q6H #150 ml 08/13/19 montelukast 10 mg tablet 10 mg PO QPM #30 tab 09/08/19 Aspirin 325 mg PO DAILY@0800 01/10/20 Loratadine 10 mg PO DAILY 01/10/20 Cefadroxil [Duracef] 500 mg PO BID #14 cap 01/13/20 Cholecalciferol (Vitamin D3) [Vitamin D3] 5,000 unit PO DAILY #30 tab.rapdis 01/13/20 Cyanocobalamin [Vitamin B12] 500 mcg PO DAILY tab 01/13/20 The following prescriptions were given: Cefadroxil [Duracef] 500 mg PO BID #14 cap Transmission Status: Received by [facility][id number] Cholecalciferol (Vitamin D3) [Vitamin D3] 5,000 unit PO DAILY #30 tab.rapdis Transmission Status: Sent to [facility] #[id number] Primary Care Physician: Yumi Peralta MD [Primary Care Provider] - Please follow up with your Primary Care Physician in: [place] 2 weeks Test Results: Test results from this visit will be discussed in further detail at your follow- up appointment, if applicable. Please Follow Up With: Gagan Andino MD When: PAD, need outpatient HORTENSIA/PVR
--- NOTE | 2020-01-13 10:19 | DS.PCM_ITS ---
Discharge Date and Diagnosis Date of Admission: 01/10/20 Date of Discharge: 01/13/20 - Primary Discharge Diagnosis Active and Suspected Problems (Last Reviewed 01/10/20 @ 20:26 by Susie Holder DO) Cellulitis and abscess of right leg (Acute) Hyperglycemia (Acute) with no hx of DM II - Secondary Discharge Diagnosis Chronic Problems (Last Reviewed 01/10/20 @ 20:26 by Susie Holder DO) Metabolic alkalosis (Chronic) Severe persistent asthma (Chronic) Chronic respiratory failure with hypoxia (Chronic) Stage 4 very severe COPD by GOLD classification (Chronic) FEV1 23% of predicted LAYLA (obstructive sleep apnea) (Chronic) Hx of cardiac cath (Chronic) 12/2015 Chronic hypoxemic respiratory failure (Chronic) Seasonal allergies (Chronic) Stage 4 very severe COPD by GOLD classification (Chronic) Obesities, morbid (Chronic) Pulmonary HTN (Chronic) HTN (hypertension) (Chronic) Hospital Course and Treatment Operations: None Summary of Care Provided: T [] There is a 49 gentleman with multiple comorbidities including class IV COPD, chronic hypoxic and hypercarbic respiratory failure, chronic metabolic alkalosis, pulmonary hypertension, right ventricular failure on, from sleep apnea admitted with swelling, redness, pain and tenderness of right lower extremity after hit by a golf ball about 1 week ago. He has a small bruise/hematoma around it. Complains of subjective fever at home. Assessment and plan: 1. Cellulitis and abscess of the right lower leg with small hematoma with chronic peripheral arterial disease: [facility] Patient was treated with IV cefazolin, elevation of right lower extremity, pain medication. General surgery was consulted. CT abdomen with contrast was done and shows no focal fluid collection or evidence of osteomyelitis but superficial subcutaneous cellulitis. Had hematoma drained by surgeon. Denies history of DVT or PE but possible has chronic arterial insufficiency/peripheral arterial disease. Has varicose vein and possible deep venous valvular incompetence. Venous Doppler was negative for DVT. Will need outpatient HORTENSIA. On aspirin 325 mg daily. 2. hyperglycemia with no hx of DM II -A1c 5.5. It means hyperglycemic but not diabetes mellitus, probably might any steroid. Blood sugars are controlled. Diabetes mellitus ruled out. 3. Stage IV COPD, pulmonary hypertension, chronic hypoxic and hypercarbic respiratory failure, LAYLA: Patient had echo in November 2015 which shows estimated EF 50%, normal right and left atrium. Moderately dilated RV with moderate global right ventricular dysfunction. Unable to estimate RVSP. IVC dilated. Overall, echo is suggestive of chronic systolic right and left-sided heart failure with pulmonary hypertension. Lasix and hold as patient has cellulitis and is getting CT scan. 2D echo was done and reviewed. The estimated ejection fraction is 65 %. Normal diastology for age. Trivial tricuspid valve insufficiency. Right ventricular systolic pressure estimated to be 57 mmHg. At least moderate pulmonary hypertension; may be underestimated. In comparison to echo report dated 11/17/2017, LV function has remained the same. Other chronic medical conditions include:anxiety/depression, ongoing tobacco dependence-complicate care, management and prognosis. Discharge medication reconciliation done. Discharge follow-up instructions completed. Discharge process discussed with the patient and all questions were answered to patient's satisfaction. Patient is discharged on cefadroxil for 7 more days. Prescription also given for sertraline. Advised follow-up with PCP in 2 weeks. Total time spent, exact 35 minutes on discharge meds reconciliation, examination, coordination of care with nurses and ancillary staff, review of imaging and blood test and discussion with the patient on follow-up instructions Subjective: No fever or chills. Hemodynamically stable. Wants to continue sertraline Objective: General: Alert, Oriented x3, Cooperative HEENT: Atraumatic, PERRLA, EOMI, Normocephalic Neck: Supple, No JVD, Negative Carotid Bruits Lungs: Clear to auscultation, No rhonchi, No wheeze, No rales, Diminished Cardiovascular: Regular rate, Regular Rhythm, Normal S1, Normal S2, Murmur - Systolic murmur over left lower border Abdomen: Bowel Sounds Present, Soft, Non Tender, Non-Distended Extremities: Capillary Refill Less than 3 Seconds, Edema Skin: Ulcer/ Wound - Extent of redness has decreased. Small swelling near the hematoma, status post incision and drainage but no purulent discharge expressed. Small package. Extent of tenderness and induration has decreased in improving Musculoskeletal: No Tenderness to Palpation of Joints or Extremities, Arthritic Changes Neurological: Cranial nerves II-XII grossly intact Psych/Mental Status: Normal Affect, Appropriate - Physical Exam Vitals/I&O's: Vital Signs Temp Pulse Resp BP Pulse Ox 97.5 F L 90 18 139/80 H 91 01/13/20 03:42 02/18/20 05:15 01/13/20 05:15 01/13/20 03:42 01/13/20 07:50 Oxygen Flow Rate (L/min) 2 Oxygen Delivery Method Room Air Weight: 339 lb 5 oz Body Mass Index (BMI) 46.0 Intake and Output for Last 24 Hours 01/11/20 01/12/20 01/13/20 23:59 23:59 23:59 Intake Total 1525.92 / 2245.92 3629.16 / 3979.16 960 / 960 Balance 1525.92 / 2245.92 3629.16 / 3979.16 960 / 960 Microbiology Past 72 Hours 01/11/20 15:20 Wound - Leg, Right Gram Stain - Final 01/11/20 15:20 Wound - Leg, Right Wound Culture - Preliminary No growth-Final to follow 01/10/20 17:20 Abs - Leg Gram Stain - Final 01/10/20 17:20 Abs - Leg Wound Culture - Preliminary No growth-Final to follow Laboratory Results 01/13/20 05:20: Sodium 135 L, Potassium 3.7, Chloride 96 L, Carbon Dioxide 35.0 H, Anion Gap 4 L, BUN 12, Creatinine 0.75, Estim Creat Clear Calc 127.90, Est GFR (MDRD) Af Amer 142, Est GFR (MDRD) Non-Af 117, BUN/Creatinine Ratio 16.1, Glucose 111 H, Calcium 8.7 Current Medications Acetaminophen (Tylenol) 650 mg PO Q6H PRN PRN PRN Reason: Pain Score 1-10/Temp > 100.7 F Last Admin: 01/12/20 08:19 Dose: 650 mg Documented by: Al Hydroxide/Mg Hydroxide (Mylanta Ii) 30 ml PO Q6H PRN PRN PRN Reason: Gastric Burning Albuterol Sulfate (Ventolin Aerosols) 2.5 mg INHALATION Q4H PRN PRN Reason: shortness of breath or wheezing Last Admin: 01/13/20 01:00 Dose: 2.5 mg Documented by: Albuterol/Ipratropium (Duoneb) 3 ml INHALATION Q6HWA.RT [facility] Last Admin: 01/13/20 05:15 Dose: 3 ml Documented by: Aspirin (Aspirin) 325 mg PO DAILY@0800 [facility] Last Admin: 01/13/20 08:34 Dose: 325 mg Documented by: Benzonatate (Tessalon Perle) 200 mg PO TID PRN PRN PRN Reason: COUGH Last Admin: 01/12/20 03:38 Dose: 200 mg Documented by: Budesonide (Pulmicort Aerosol) 0.5 mg INHALATION Q12H.RT [facility] Last Admin: 01/13/20 05:25 Dose: 0.5 mg Documented by: Cyanocobalamin (Vitamin B12) 1,000 mcg PO DAILY [facility] Last Admin: 01/13/20 08:35 Dose: 1,000 mcg Documented by: Enoxaparin Sodium (Lovenox) 40 mg SC DAILY [facility] Last Admin: 01/12/20 08:10 Dose: 40 mg Documented by: Fluticasone Propionate (Flonase Nasal [place]) 2 spray NASAL DAILY [facility] Last Admin: 01/12/20 08:11 Dose: Not Given Documented by: Furosemide (Lasix) 40 mg PO BIDLX [facility] Last Admin: 01/13/20 08:35 Dose: 40 mg Documented by: Guaifenesin (Mucinex) 1,200 mg PO Q12H PRN PRN PRN Reason: COUGH Last Admin: 01/12/20 03:38 Dose: 1,200 mg Documented by: Sodium Chloride () 250 mls @ 15 mls/hr IV .[id number] PRN PRN Reason: Saline Flush Last Infusion: 01/11/20 07:04 Dose: 0 mls/hr Documented by: Sodium Chloride () 250 mls @ 15 mls/hr IV .[id number] PRN PRN Reason: Additional IVPB Infusion Cefazolin Sodium 2 gm/ Sodium (Chloride) 110 mls @ 150 mls/hr IV Q8 [facility] Last Admin: 01/13/20 05:57 Dose: 150 mls/hr Documented by: Ibuprofen (Motrin) 400 mg PO Q6H PRN PRN PRN Reason: Pain Score 1-10/Temp > 100.7 F Last Admin: 01/13/20 04:10 Dose: 400 mg Documented by: Loratadine (Claritin) 10 mg PO DAILY [facility] Last Admin: 01/13/20 08:36 Dose: 10 mg Documented by: Magnesium Hydroxide (Milk Of Magnesia) 30 ml PO DAILY PRN PRN PRN Reason: Constipation Melatonin (Melatonin) 3 mg PO QHS PRN PRN PRN Reason: INSOMNIA Last Admin: 01/12/20 23:32 Dose: 3 mg Documented by: Metoprolol Succinate (Toprol Xl (Beta Irina)) 50 mg PO DAILY [facility] Last Admin: 01/12/20 08:09 Dose: 50 mg Documented by: Montelukast Sodium (Singulair) 10 mg PO QPM [facility] Last Admin: 01/12/20 23:18 Dose: 10 mg Documented by: Morphine Sulfate () 4 mg IV Q3H PRN PRN PRN Reason: Pain Score 6-10/10 Last Admin: 01/11/20 15:19 Dose: 4 mg Documented by: Multivitamins (Multivitamin) 1 tablet PO DAILY@0800 [facility] Last Admin: 01/13/20 08:35 Dose: 1 tablet Documented by: Nicotine (Nicoderm Cq ([facility])) 14 mg TRANSDERM. DAILY [facility] Last Admin: 01/12/20 19:02 Dose: 14 mg Documented by: Ondansetron HCl (Zofran) 4 mg IV Q8H PRN PRN PRN Reason: NAUSEA/VOMITING Oxycodone HCl (Oxyir) 5 - 10 mg PO Q4H PRN PRN PRN Reason: Pain Score 4-5/10 Last Admin: 01/12/20 23:23 Dose: 10 mg Documented by: Prochlorperazine Edisylate (Compazine Iv) 5 mg IV Q4H PRN PRN PRN Reason: Breakthrough nausea/vomiting Sertraline HCl (Zoloft) 50 mg PO DAILY [facility] Last Admin: 01/12/20 08:09 Dose: 50 mg Documented by: Sodium Chloride () 10 - 40 ml IV UD PRN PRN Reason: SALINE FLUSH Last Admin: 01/12/20 23:25 Dose: 10 ml Documented by: Spironolactone (Aldactone) 25 mg PO BID [facility] Last Admin: 01/12/20 23:19 Dose: 25 mg Documented by: Discharge Activity: May Not Drive Call your doctor if you observe: Fever of 101 or Higher, Coldness, Increased Pain, Numbness or Tingling, Inability to have a bowel movement, Shortness of breath, Dizziness, Fainting spells, Chest pain, Increased palpitations (irregular heartbeat), Uncontrolled pain Home Medications: Medications to take at Discharge Furosemide [Lasix] 40 mg PO BID 12/02/15 Spironolactone [Aldactone] 25 mg PO BID 12/02/15 Multivitamin [Multiple Vitamins] 1 ea PO DAILY 11/16/17 tiotropium bromide 18 mcg capsule with inhalation device 18 mcg INHALATION PRN PRN 02/21/18 Guaifenesin [Guaifenesin ER] 1,200 mg PO Q12H PRN 09/13/18 Metoprolol Succinate 50 mg PO DAILY 09/13/18 fluticasone propionate 50 mcg/actuation nasal spray,suspension 2 spray INTRANASAL DAILY #16 g 12/25/18 benzonatate 200 mg capsule 200 mg PO TID PRN #90 cap 12/30/18 mepolizumab 100 mg subcutaneous solution 100 mg SC Q4W #1 ea 04/17/19 albuterol sulfate 90 mcg/actuation aerosol inhaler 2 puff INHALATION Q4H PRN #18 g 05/05/19 albuterol sulfate 2.5 mg INHALATION Q4H PRN #180 ml 06/27/19 ipratropium 0.5 mg-albuterol 3 mg (2.5 mg base)/3 mL nebulization soln 3 ml INHALATION Q6HWA.RT #180 vial 06/30/19 budesonide-formoterol HFA 160 mcg-4.5 mcg/actuation aerosol inhaler 2 puff INHALATION BID #3 device 08/05/19 ipratropium bromide 0.02 % solution for inhalation 0.5 mg INHALATION Q6H #150 ml 08/13/19 montelukast 10 mg tablet 10 mg PO QPM #30 tab 09/08/19 Aspirin 325 mg PO DAILY@0800 01/10/20 Loratadine 10 mg PO DAILY 01/10/20 Cefadroxil [Duracef] 500 mg PO BID #14 cap 01/13/20 Cholecalciferol (Vitamin D3) [Vitamin D3] 5,000 unit PO DAILY #30 tab.rapdis 01/13/20 Cyanocobalamin [Vitamin B12] 500 mcg PO DAILY tab 01/13/20 Sertraline HCl [Zoloft] 50 mg PO DAILY #30 tab 01/13/20 Following Prescrptions Were Given to Patient: Cefadroxil [Duracef] 500 mg PO BID #14 cap Transmission Status: Received by [id number] Cholecalciferol (Vitamin D3) [Vitamin D3] 5,000 unit PO DAILY #30 tab.rapdis Transmission Status: Received by [id number] Sertraline HCl [Zoloft] 50 mg PO DAILY #30 tab Transmission Status: Received by [id number] Primary Care Physician: Yumi Peralta MD [Primary Care Provider] - Please follow up with your Primary Care Physician in: [place] 2 weeks Please Follow Up With: Gagan Andino MD When: PAD, need outpatient HORTENSIA/PVR Medical Necessity - Tobacco Use Smoking Status: Current some day smoker Tobacco Use: Cigarettes Meaningful Use Info Meaningful Use Diagnoses (Choose all that apply): None applicable Code Visit Inpatient E&M: 49689 Disch Hosp
[2020-01-13] MEDS: Spironolactone 25 MG Tablet PO (10:58)
[2020-01-13] MEDS: Metoprolol(XL)Succ 50 MG Tablet PO (11:04)
[2020-01-13] MEDS: Sertraline 50 MG Tablet PO (11:05)
[2020-01-13] MEDS: oxyCODONE 5 MG Tablet PO (14:51)
--- NOTE | 2020-01-15 12:42 | CASEMGMT ---
FINA DC PHONE CALL DC DATE: 01.13.2020 DC Disposition: Home Diagnosis on Discharge: Cellulitis, hyperglycemia LACE/STRATA: 10/29 Attempted call to phone. No answer, and machine did not have name identifier. Eliel MCDOWELLN RN ACM
== END 2020-01-13 15:39 | disposition home or self-care (01) | DRG 603 ==
LOC: ED 18:05 → MS3 20:33
PROVIDERS: Admitting Provider Internal Medicine; Emergency Provider Emergency Medicine; PCP Family Medicine; Visit Provider Internal Medicine
DX: L02.415 Cutaneous abscess of right lower limb (principal); J96.11 Chronic respiratory failure with hypoxia; J96.12 Chronic respiratory failure with hypercapnia; Z68.42 Body mass index [BMI] 45.0-49.9, adult; E87.3 Alkalosis; S80.11XA Contusion of right lower leg, initial encounter; L03.115 Cellulitis of right lower limb; W21.04XA Struck by golf ball, initial encounter; Y92.096 Garden or yard of other non-institutional residence as the place of occurrence of the external cause; E66.01 Morbid (severe) obesity due to excess calories; G47.33 Obstructive sleep apnea (adult) (pediatric); I27.20 Pulmonary hypertension, unspecified; Z99.81 Dependence on supplemental oxygen; F17.210 Nicotine dependence, cigarettes, uncomplicated; I10 Essential (primary) hypertension; J44.9 Chronic obstructive pulmonary disease, unspecified; R73.9 Hyperglycemia, unspecified; J45.50 Severe persistent asthma, uncomplicated; I73.9 Peripheral vascular disease, unspecified; Z79.82 Long term (current) use of aspirin; Y99.8 Other external cause status
CPT/HCPCS: 36415; 73590; 73701; 80048; 80053; 83036; 85025; 87040; 87070; 87075; 87205; 93306; 93970; 94640; 99251; 99282; 99284; J7030; J7050; Q9957; Q9967; A4216; G0463; J2405

== ENCOUNTER → 2020-01-28 12:31 | Outpatient (CLI) | payer MEDICARE, SELFPAY ==
[2020-01-10 20:32] VITALS: BMI 46.0
--- NOTE | 2020-01-28 12:34 | ART_ITS ---
Reason For Study: Claudication Procedure A bilateral lower extremity continuous wave Doppler with analog waveform analysis,segmental pressures,and ankle brachial indexes with exercise. Left Segmental Pressures Left brachial= 133mmHg. Left posterior tibial artery = 152mmHg. Left dorsalis pedis artery = 148mmHg. Left digit = 124 mmHg. The left dorsalis pedis waveforms are triphasic. The left posterior tibial artery waveforms are triphasic. Right Segmental Pressures Right brachial= 135mmHg. Right posterior tibial artery = 142mmHg. Right dorsalis pedis artery = 144mmHg. Right digit = 111 mmHg. The right dorsalis pedis waveforms are triphasic. The right posterior tibial artery waveforms are triphasic. Indices The right ankle brachial index by the dorsalis pedis is 1.07. The right ankle brachial index by the posterior tibial artery is 1.05. The right digital-brachial index is 0.82. The left ankle brachial index by the dorsalis pedis is 1.10. The left ankle brachial index by the posterior tibial artery is 1.13. The left digital-brachial index is 0.92. Interpretation Summary Normal bilateral lower extremity resting ankle-brachial indices and digital brachial indices and Doppler triphasic waveforms Normal bilateral lower extremity response to exercise although patient complained of fatigue Ordering Physician: Gagan Andino Referring Physician: Moira Peralta Performed By: Ariana Mullins RVT
== END ==
PROVIDERS: PCP Family Medicine; Referring Provider Surgery; Visit Provider Surgery
DX: I73.9 Peripheral vascular disease, unspecified (principal)
CPT/HCPCS: 93924

== ENCOUNTER → 2021-04-13 12:45 | Outpatient (CLI) | payer MEDICARE, SELFPAY ==
[2021-04-05 10:52] VITALS: BMI 44.7
--- NOTE | 2021-04-13 12:48 | ECHOD_ITS ---
Version 2 Reason For Study: PHTN, Heart Failure Procedure This was a 2D Doppler, Color Flow transthoracic echocardiogram. The study was technically difficult. The study was technically limited. Did not use Definity due to increased/underestimated pulmonary artery pressures. Exam performed in department. Left Ventricle Normal LV size. Left ventricular systolic function is normal. The estimated ejection fraction is 65 %. Stage 2 diastolic dysfunction. No regional wall motion abnormalities noted. Right Ventricle Normal RV size. Normal systolic function. Atria Normal left atrium. Normal right atrium. Mitral Valve Normal mitral valve. Tricuspid Valve The tricuspid valve is not well visualized. Mild to moderate (1-2+) tricuspid valve insufficiency. Pulmonary artery systolic pressure is 60 mmHg. Aortic Valve The aortic valve is not well visualized. Pulmonic Valve Normal pulmonic valve. Great Vessels Normal aortic root. Pericardium/Pleural No pericardial effusion. MMode/2D Measurements & Calculations LVIDd: 4.6 cm IVSd: 1.5 cm Ao root diam: 3.3 cm LVIDs: 2.6 cm LVPWd: 1.1 cm RVDd: 5.0 cm FS: 43.4 % LAV(MOD-bp): 31.8 ml LA A4 area: 14.3 cm2 LA dimension(2D): 3.9 cm LAV(MOD-bp) Indexed: 12.1 ml/m2 LAV(MOD-sp2): 31.0 ml LAV(MOD-sp4): 33.6 ml RA A4 area: 13.4 cm2 Doppler Measurements & Calculations MV E max ramón: 104.3 cm/sec Lat Peak E' Ramón: 11.3 cm/sec Med Peak E' Ramón: 10.0 cm/sec MV A max ramón: 80.9 cm/sec E/E' lat: 9.2 E/E' med: 10.4 MV E/A: 1.3 Ao V2 max: 142.7 cm/sec LV V1 max: 113.7 cm/sec PA V2 max: 134.6 cm/sec Ao max P.1 mmHg LV V1 max P.2 mmHg Ao V2 mean: 98.2 cm/sec Ao mean P.4 mmHg Ao V2 VTI: 26.6 cm TR max ramón: 367.9 cm/sec TR max P.1 mmHg ECHO/Echo Complete Interpretation Summary Normal LV size. Left ventricular systolic function is normal. The estimated ejection fraction is 65 %. Stage 2 diastolic dysfunction. Structurally normal valves. Ordering Physician: ASAF GONCALVES Referring Physician: Yumi Peralta Performed By: Madhavi Monahan RDCS, RVT
== END ==
LOC: CVS 12:47
PROVIDERS: PCP Family Medicine
DX: I27.20 Pulmonary hypertension, unspecified (principal); I50.32 Chronic diastolic (congestive) heart failure
CPT/HCPCS: 93306

== ENCOUNTER 2021-06-10 08:24 | Emergency (ER) | payer MEDICARE, SELFPAY ==
[2021-04-05 10:52] VITALS: BMI 44.7
[2021-06-10 08:25] VITALS: BP 156/94; PULSE 83; RESP 20; TEMP 37.4; O2SAT 94; BMI 45.1
--- NOTE | 2021-06-10 08:34 | EDS_ITS ---
HPI History of Present Illness Chief Complaint: Shortness of Breath Narrative Narrative: 50-year-old male with history of COPD wearing his baseline oxygen nasal cannula 2 L presenting with left rib pain. He states that he had a coughing fit 2 days ago and felt a pop in his left posterior ribs. He has had pain since then. He has been using Advil at home without relief. He denies fever, chills, myalgias, nausea, vomiting, loss of taste or smell. Patient states that he is not dyspneic. [facility] Medical History Acute respiratory failure with hypoxia and hypercapnia Chronic hypoxemic respiratory failure HTN (hypertension) Incarcerated umbilical hernia Obesities, morbid LAYLA (obstructive sleep apnea) Pneumonia Pulmonary HTN Seasonal allergies Stage 4 very severe COPD by GOLD classification Tobacco dependence Home Medications furosemide 40 mg PO BID 12/02/15 [History Last Taken 01/10/20 19:00 40 mg] spironolactone 25 mg PO BID 12/02/15 [History Last Taken 01/10/20 08:00 25 mg] multivitamin 1 ea PO DAILY 11/16/17 [History Last Taken 01/09/20 08:00 1 tab] guaifenesin 1,200 mg PO Q12H PRN 09/13/18 [History Last Taken 01/10/20 19:00 1200 mg] metoprolol succinate 50 mg PO DAILY 09/13/18 [History Last Taken 01/10/20 08:00 50 mg] fluticasone propionate 50 mcg/actuation nasal spray,suspension 2 spray INTRANASAL DAILY #16 g 12/25/18 [Rx Last Taken Unknown] ipratropium 0.5 mg-albuterol 3 mg (2.5 mg base)/3 mL nebulization soln 3 ml INHALATION Q6HWA.RT #180 vial 06/30/19 [Rx Last Taken Unknown] montelukast 10 mg tablet 10 mg PO QPM #30 tab 09/08/19 [Rx Last Taken 01/09/20 22:00 10 mg] loratadine 10 mg PO DAILY 01/10/20 [History Last Taken 01/10/20 08:00 10 mg] cholecalciferol (vitamin D3) 5,000 unit PO DAILY #30 tab.rapdis 01/13/20 [Rx Last Taken Unknown] cyanocobalamin (vitamin B-12) 500 mcg PO DAILY tab 01/13/20 [Rx Last Taken Unknown] sertraline 50 mg PO DAILY #30 tab 01/13/20 [Rx Last Taken Unknown] fluticasone fur. 100 mcg-umeclid 62.5 mcg-vilant 25 mcg inhalat.powder 1 inh INHALATION QDAY #60 ea 03/05/20 [Rx Last Taken Unknown] albuterol sulfate 2.5 mg INHALATION Q4H PRN #180 ml 03/11/20 [Rx Last Taken Unknown] ipratropium bromide 0.02 % solution for inhalation 0.5 mg INHALATION Q6H #150 ml 05/24/20 [Rx Last Taken Unknown] albuterol sulfate 90 mcg/actuation aerosol inhaler 2 puff INHALATION Q4H PRN #18 g 06/08/20 [Rx Last Taken Unknown] aspirin 81 mg PO DAILY 06/10/21 [History Last Taken Unknown] lidocaine 1 patch TOPICAL DAILY PRN #10 ea 06/10/21 [Rx Last Taken Unknown] Allergy/AdvReac Type Severity Reaction Status Date / Time clarithromycin [From Biaxin] Allergy Hives Verified 06/10/21 08:24 Penicillins Allergy Hives Verified 06/10/21 08:24 Family History Mother Diabetes Breast cancer Heart disease Hypertension COPD (chronic obstructive pulmonary disease) Asthma Father Hypertension CVA (cerebral vascular accident) Surgical History History of hernia repair (~08/2018) History of tonsillectomy History of tooth extraction Hx of cardiac cath Social History Smoking Status: Current every day smoker tobacco type: cigarettes how long ago did patient quit smokin second hand exposure: Yes quit status: has quit before alcohol intake: never substance use type: does not use ROS ROS ED Constitutional Constitutional ED: Denies chills or fever(s) Eyes Eyes: Denies blurry vision or diplopia ENT ENT ED: Denies rhinorrhea or sore throat Cardiovascular Cardiovascular: Denies chest pain or palpitations Respiratory/Chest Respiratory/Chest: Reports cough and other Details: Left posterior rib pain ; Denies dyspnea Gastrointestinal Gastrointestinal: Denies abdominal pain, nausea or vomiting Genitourinary Genitourinary ED: Denies dysuria or hematuria Musculoskeletal Musculoskeletal: Denies arthralgias or myalgias Integumentary Denies abscess or rash Neurologic Neurologic: Denies headache(s) or paresthesias Psychiatric Psychiatric: Denies anxiety or depression EXAM Physical Exam Const Vital Signs: 06/10/21 08:25 06/10/21 09:34 06/10/21 10:33 Temperature 99.4 F H Temperature Source Oral Pulse Rate 83 82 Respiratory Rate 20 H 20 H Respiratory Effort Short of Breath Blood Pressure 156/94 H 136/79 H Blood Pressure Mean 114 Pulse Ox 94 94 Oxygen Delivery Method Nasal Cannula Nasal Cannula Oxygen Flow Rate (L/min) 2 2 Positive obese General Appearance ED: NAD Nutritional Appearance: obese HEENT Reports moist mucous membranes Negative for trauma Eyes PERRL and EOMs intact bilaterally Chest Wall Chest Narrative: Tenderness to palpation left lower posterior ribs. No crepitance or deformity. Equal symmetric breath sounds and chest wall rise Resp normal respiratory effort and clear to auscultation bilaterally Auscultation: Negative for wheezes Cardio regular rate and regular rhythm Neuro oriented x3 and CN's II-XII intact bilaterally Sensorium / Orientation: alert Psych mental status grossly normal Skin no rashes or lesions noted and no wounds MDM MDM MDM Narrative Medical decision making narrative: Patient presented with a posterior rib pain. This does not sound cardiac in nature. Is focal tenderness of the left post erior ribs. There is no crepitance or deformity. Patient took 4 Advil prior to arrival. He is driving so I cannot give him anything stronger. I did place a Lidoderm patch over the area of pain. I obtained a left rib series. I did obtain a left rib series which did not identify any rib fractures or acute cardiopulmonary process on my interpretation. Patient is counseled to use alternating doses of Tylenol and ibuprofen for pain. I did prescribe him Lidoderm patches. I did not believe he needed narcotic pain medication given that he has no findings on his x-ray. He had no traumatic injury which would suggest an occult fracture. Impression: 1. Left rib strain Radiography Diagnostic Testing: Radiology Impression Ribs w/Chest X-Ray 06/10/21 08:40 IMPRESSION: RIBS: Normal x-ray examination of the ribs. CHEST: Hyperinflation. Prominence of the central pulmonary arteries. Electronically Signed: Arsenio Funk MD at 9:54 EDT , Service support , Discharge Plan Triage Chief Complaint: Shortness of Breath ED Provider: Elijah Fritz Dx/Rx/DC Orders Instructions: ED Chest Pain [facility] Prescriptions: New lidocaine 4 % adhesive patch,medicated 1 patch topical DAILY PRN (Reason: pain) Qty: 10 RF: 0 No Action Trelegy Ellipta 100-62.5-25 mcg blister with device 1 inh INHALATION QDAY Qty: 60 RF: 3 spironolactone 25 MG tablet 25 mg PO BID RF: 0 furosemide 20 MG tablet 40 mg PO BID RF: 0 multivitamin 1 EACH tablet 1 ea PO DAILY RF: 0 metoprolol succinate 50 MG tablet extended release 24 hr 50 mg PO DAILY RF: 0 guaifenesin 1,200 MG tablet extended release 12hr 1,200 mg PO Q12H PRN (Reason: Cough) RF: 0 loratadine 10 MG tablet 10 mg PO DAILY RF: 0 cyanocobalamin (vitamin B-12) 500 MCG tablet 500 mcg PO DAILY RF: 0 cholecalciferol (vitamin D3) 5,000 UNIT tablet,disintegrating 5,000 unit PO DAILY Qty: 30 RF: 0 sertraline 50 MG tablet 50 mg PO DAILY Qty: 30 RF: 0 aspirin 81 mg Tablet 81 mg PO DAILY RF: 0 fluticasone propionate 50 mcg/actuation spray,suspension 2 spray intranasal DAILY Qty: 16 RF: 3 ipratropium-albuterol 0.5 mg-3 mg(2.5 mg base)/3 mL solution for nebulization 3 ml INHALATION Q6HWA.RT Qty: 180 RF: 11 montelukast [Singulair] 10 mg tablet 10 mg PO QPM Qty: 30 RF: 6 albuterol sulfate 2.5 mg /3 mL (0.083 %) solution for nebulization 2.5 mg INHALATION Q4H PRN (Reason: shortness of breath or wheezing) Qty: 180 RF: 6 ipratropium bromide 0.02 % solution 0.5 mg INHALATION Q6H Qty: 150 RF: 6 albuterol sulfate [Ventolin HFA] 90 mcg/actuation HFA aerosol inhaler 2 puff INHALATION Q4H PRN (Reason: shortness of breath or wheezing) Qty: 18 RF: 6 Primary Care Provider: Yumi Peralta Referrals: Yumi Peralta MD [Primary Care Provider] - Disposition Disposition: Home, Self Care Discharge Date/Time: 06/10/21 10:34
--- NOTE | 2021-06-10 08:40 | RAD_ITS ---
STUDY: X-RAY - UNILATERAL RIBS ( LEFT ) WITH CHEST REASON FOR EXAM: Male, 50 years old. Pain TECHNIQUE - RIBS: 4 view(s) of the ribs. TECHNIQUE - CHEST: Single PA view of the chest. COMPARISON: None. FINDINGS - RIBS: Normal visualized ribs without a demonstrated fracture. FINDINGS - CHEST: Hyperinflation. There is no demonstrated pleural abnormality. Normal size heart. Normal mediastinum and lani. There is prominence of the pulmonary hilar arteries without peripheral pulmonary vascular congestion, suggesting pulmonary hypertension. Normal visualized aortic arch and descending thoracic aorta. There are degenerative changes of the visualized thoracic spine. Normal visualized ribs, clavicles, and shoulders. There is no demonstrated abnormality of the visualized soft tissue structures of the upper abdomen. RAD/Ribs Uni Min 3V w/PA Chest IMPRESSION: RIBS: Normal x-ray examination of the ribs. CHEST: Hyperinflation. Prominence of the central pulmonary arteries. Electronically Signed: Arsenio Funk MD at 9:54 EDT , Service support ,
[2021-06-10 09:34] VITALS: O2SAT 94
[2021-06-10] MEDS: Lidocaine 5% Patch 1 PATCH TOPICAL (09:35)
[2021-06-10 10:33] VITALS: BP 136/79; PULSE 82; RESP 20; O2SAT 94
== END 2021-06-10 10:34 | disposition home or self-care (01) ==
PROVIDERS: Emergency Provider Student in an Organized Health Care Education/Training Program; PCP Family Medicine
DX: S29.011A Strain of muscle and tendon of front wall of thorax, initial encounter (principal); X58.XXXA Exposure to other specified factors, initial encounter; Y93.89 Activity, other specified; Y92.9 Unspecified place or not applicable; Y99.9 Unspecified external cause status; I10 Essential (primary) hypertension; I27.20 Pulmonary hypertension, unspecified; J44.9 Chronic obstructive pulmonary disease, unspecified; J96.02 Acute respiratory failure with hypercapnia; J96.11 Chronic respiratory failure with hypoxia; E66.01 Morbid (severe) obesity due to excess calories; F17.210 Nicotine dependence, cigarettes, uncomplicated; Z68.42 Body mass index [BMI] 45.0-49.9, adult; Z99.81 Dependence on supplemental oxygen; Z79.82 Long term (current) use of aspirin; Z79.899 Other long term (current) drug therapy
CPT/HCPCS: 71101; 99283; A4216

== ENCOUNTER 2021-10-11 08:53 | Inpatient (IN) | payer MEDICARE, SELFPAY ==
[2021-10-11] VITALS (17 sets, daily range): BP systolic 115–155; BP diastolic 72–101; PULSE 70–119; RESP 12–26; TEMP 36.4–36.9; O2SAT 80–97; BMI 45.1; BMI 45.8
--- NOTE | 2021-10-11 09:06 | RAD_ITS ---
STUDY: X-RAY - LEFT KNEE REASON FOR EXAM: Left knee injury, limited range of motion. TECHNIQUE: 2 view(s) of the knee. COMPARISON: None. FINDINGS: Normal visualized distal femur. There is a medial tibial plateau fracture. There is a nondisplaced fracture of the head of the fibula. Normal proximal tibiofibular articulation. Normal medial femorotibial compartment. Normal lateral femorotibial compartment. Normal patellofemoral articulation. There is a joint effusion. RAD/Knee 1 or 2 Views IMPRESSION: Medial tibial plateau fracture. Fibular head fracture. Joint effusion. Electronically Signed: Salvador Marcano MD at 10:32 EST Tel , Service support ,
--- NOTE | 2021-10-11 09:08 | ED.VIS.LOWEX ---
HPI History of Present Illness Chief Complaint: Lower Extremity Injury Informant: patient Narrative Narrative: Patient presents from EMS at home secondary mechanical for left knee injury prior to arrival. States walking from the bathroom left leg gave out falling down doing the splits. He thinks fell on right knee and left leg with straight in. Pain in the knee. No head injuries. Patient takes baby aspirin. Patient states yesterday felt spasms in his right hand caused him to drop a cup twice. There is no paresthesias. No weakness. Patient lives alone. Does not ambulate with any assistance. Patient does wear chronic oxygen due to history of COPD along with congestive heart failure. Denies any coronary disease or cardiac stents. Prior similar symptoms: No PFSH [facility] Medical History (Updated 10/11/21 @ 17:[address] Michael Hernandez DO) Acute respiratory failure with hypoxia and hypercapnia Chronic hypoxemic respiratory failure Congestive heart failure (CHF) HTN (hypertension) Incarcerated umbilical hernia Obesities, morbid LAYLA (obstructive sleep apnea) Pneumonia Pulmonary HTN Seasonal allergies Stage 4 very severe COPD by GOLD classification Tobacco dependence Home Medications furosemide 40 mg PO BID 12/02/15 [History Last Taken 01/10/20 19:00 40 mg] spironolactone 25 mg PO BID 12/02/15 [History Last Taken 01/10/20 08:00 25 mg] guaifenesin 1,200 mg PO Q12H PRN 09/13/18 [History Last Taken 01/10/20 19:00 1200 mg] metoprolol succinate 50 mg PO DAILY 09/13/18 [History Last Taken 01/10/20 08:00 50 mg] ipratropium 0.5 mg-albuterol 3 mg (2.5 mg base)/3 mL nebulization soln 3 ml INHALATION Q6HWA.RT #180 vial 06/30/19 [Rx Last Taken Unknown] montelukast 10 mg tablet 10 mg PO QPM #30 tab 09/08/19 [Rx Last Taken 01/09/20 22:00 10 mg] loratadine 10 mg PO DAILY 01/10/20 [History Last Taken 01/10/20 08:00 10 mg] cholecalciferol (vitamin D3) 5,000 unit PO DAILY #30 tab.rapdis 01/13/20 [Rx Last Taken Unknown] cyanocobalamin (vitamin B-12) 500 mcg PO DAILY tab 01/13/20 [Rx Last Taken Unknown] sertraline 50 mg PO DAILY #30 tab 01/13/20 [Rx Last Taken Unknown] albuterol sulfate 2.5 mg INHALATION Q4H PRN #180 ml 03/11/20 [Rx Last Taken Unknown] albuterol sulfate 90 mcg/actuation aerosol inhaler 2 puff INHALATION Q4H PRN #18 g 06/08/20 [Rx Last Taken Unknown] aspirin 81 mg PO DAILY 06/10/21 [History Last Taken Unknown] budesonide-formoterol [Symbicort] 2 puff INHALATION BID 10/11/21 [History Last Taken Unknown] bupropion HCl [Wellbutrin XL] 150 mg PO BID 10/11/21 [History Last Taken Unknown] fluticasone propionate 2 spray INTRANASAL DAILY PRN 10/11/21 [History Last Taken Unknown] Allergy/AdvReac Type Severity Reaction Status Date / Time clarithromycin [From Biaxin] Allergy Hives Verified 10/11/21 08:58 Penicillins Allergy Hives Verified 10/11/21 08:58 Family History Mother Diabetes Breast cancer Heart disease Hypertension COPD (chronic obstructive pulmonary disease) Asthma Father Hypertension CVA (cerebral vascular accident) Surgical History History of hernia repair (~08/2018) History of tonsillectomy History of tooth extraction Hx of cardiac cath Social History Smoking Status: Current every day smoker tobacco type: cigarettes how long ago did patient quit smokin second hand exposure: Yes quit status: has quit before alcohol intake: never substance use type: does not use ROS ROS ED Constitutional Constitutional ED: Denies chills, fever(s) or sweats Eyes Eyes: Denies change in vision ENT ENT ED: Denies dysphagia or sore throat Cardiovascular Cardiovascular: Denies chest pain, leg edema, palpitations or racing heartbeat Respiratory/Chest Respiratory/Chest: Denies cough, dyspnea or dyspnea on exertion Gastrointestinal Gastrointestinal: Denies abdominal pain, diarrhea, nausea or vomiting Genitourinary Genitourinary ED: Denies dysuria, hematuria or urinary frequency Musculoskeletal Musculoskeletal: Reports other Details: Left knee injury ; Denies back pain, extremity pain or neck pain Integumentary Denies rash or wounds Neurologic Neurologic: Denies headache(s), paresthesias or weakness EXAM Physical Exam Const Vital Signs: 10/11/21 08:54 10/11/21 11:19 Temperature 98.4 F Temperature Source Oral Pulse Rate 78 78 Respiratory Rate 22 H 16 Blood Pressure 155/101 H Blood Pressure Mean 119 Pulse Ox 90 90 Oxygen Delivery Method Nasal Cannula Nasal Cannula Oxygen Flow Rate (L/min) 3 2 Positive well nourished and well developed Constitutional Narrative: GCS 15. General Appearance ED: well developed and NAD HEENT Reports moist mucous membranes normocephalic and atraumatic Eyes PERRL, EOMs intact bilaterally and conjunctivae normal General Eye ED: Yes normal appearance of both eyes Neck no lymphadenopathy and supple Neck Narrative: No midline tenderness or step-offs. General: Negative for tenderness Chest Wall Chest: Negative for tenderness Resp normal respiratory effort and normal air movement Effort and Inspection: symmetric chest movement; Negative for respiratory distress Cardio regular rate, regular rhythm and no murmurs Peripheral Pulses: pulses 2+ throughout GI normal to inspection, nondistended, normoactive bowel sounds and non-tender Palpation: Negative for guarding or rebound tenderness present Back/Spine no CVA tenderness and no thoracic nor lumbar tenderness Back/Spine Narrative: No midline thoracic or lumbar tenderness. Extremity Extremity Narrative: Right lower extremity: Negative logroll. No deformities or tenderness. Pulses intact distally. Left lower extremity: Negative logroll. Tender palpation proximal tibia with no deformities. Patient unable to fully extend the knee, defect noted at the quadriceps tendon. No ankle tenderness. Neurovascular intact distally. General Extremety ED: Negative for edema or tenderness General Extremity: Negative for edema Neuro oriented x3 and no sensory deficits noted Sensorium / Orientation: awake and alert Skin no rashes or lesions noted and no wounds MDM MDM MDM Narrative Medical decision making narrative: Patient fall after his leg gave out. Denied head injuries. Clinical exam concerns for quadriceps tendon rupture. Additional pain in the proximal tibia. IV was placed. He was given fentanyl, x-ray obtained reviewed by myself and read by radiology noting concerns for proximal fibular head fracture along with the medial tibial plateau fracture. Labs were drawn white count 13.9 hemoglobin 16. Creatinine 0.61. I discussed with on-call orthopedist Dr. Mart, discussed requested CT scan for further delineation of the plateau fracture. Reports with clinical quad tendon MRI is not necessary at this time. Knee immobilizer placed. CT scan was obtained confirming the fractures. Due to difficulty ambulating, I did discuss with hospitalist Dr. Shah for admission. He has stage IV COPD history long sleep apnea, carbon dioxide level returned greater than 45. He has been hypercapnic before per daughter. Is currently stable. She did request an ABG which was ordered. He will be placed in PCU due to his baseline respiratory condition. Later reported by respiratory therapy, patient refused the ABG. Lab Data Attestation: I reviewed the patient's lab results. Labs: Laboratory Results - last 24 hr 10/11/21 10/11/21 09:35 09:35 WBC 13.9 H RBC 4.93 Hgb 16.0 Hct 52.3 MCV 106.1 H MCH 32.5 H MCHC 30.6 L RDW Std Deviation 53.8 H RDW Coeff of Valerie 13.5 Plt Count 178 MPV 10.6 Immature Gran % (Auto) 0.600 Neut % (Auto) 80.2 H Lymph % (Auto) 8.6 L [place] % (Auto) 8.0 Eos % (Auto) 2.2 Baso % (Auto) 0.4 Absolute Neuts (auto) 11.2 H Absolute Lymphs (auto) 1.19 Nucleated RBC % 0 Sodium 135 L Potassium 4.3 Chloride 87 L Carbon Dioxide > 45.0 H* Anion Gap TNP BUN 9 Creatinine 0.61 L Estim Creat Clear Calc 155.48 Est GFR (MDRD) Af Amer 177 Est GFR (MDRD) Non-Af 146 BUN/Creatinine Ratio 14.7 Glucose 109 H Calcium 9.1 Radiography X-Ray: Read by ED Physician and Read by Radiologist Diagnostic Testing: Clinical Impression(s) from Imaging Studies Knee X-Ray 10/11/21 09:06 IMPRESSION: Medial tibial plateau fracture. Fibular head fracture. Joint effusion. Electronically Signed: Salvador Marcano MD at 10:32 EST Tel , Service support , Lower Extremity CT 10/11/21 10:42 IMPRESSION: Comminuted medial tibial plateau fracture. Nondisplaced fracture of the head of the fibula. Joint effusion. Electronically Signed: Salvador Marcano MD at 11:25 EST Tel , Service support , Discharge Plan Dx/Rx/DC Orders Clinical Impression: Other specified injury of left quadriceps muscle, fascia and tendon, initial encounter, Stage 4 very severe COPD by GOLD classification, Closed fracture of left tibial plateau Disposition Disposition: Acute Care Hospital [facility] Discharge Date/Time: 10/11/21 12:33
[2021-10-11] MEDS: fentaNYL 100 MCG/2 ML Ampul 50 MCG IV (09:35)
[2021-10-11 09:48] LABS: Absolute Lymphocyte Count 1.19 X10^3/uL (0.83-4.51); Absolute Neutrophil Count 11.2 X10^3/uL (2.0-7.7); Basophil# 0.06 X10^3/uL; Basophil% 0.4 % (0-1); Eosinophils% 2.2 % (0-5); Hematocrit 52.3 % (40-54); Lymphocyte # 1.19 X10^3/ul (0.83-4.51); Lymphocyte % 8.6 % (19-41); Mean Corp Hgb Conc 30.6 g/dL (32-36); Mean Corpuscular Hgb 32.5 pg (27.0-32.0); Mean Corpuscular Volume 106.1 fL (80-94); Mean Platelet Vol. 10.6 fl (6.2-12.0); Monocyte# 1.11 X10^3/uL; NRBC Flagged by Analyzer 0 % (0-5); Neutrophil # 11.15 X10^3/uL (2.7-7.7); Neutrophil % 80.2 % (47-70); Platelet Count 178 K/mm3 (150-450); RBC Distribution Width CV 13.5 % (11.6-14.6); RBC Distribution Width SD 53.8 fl (35.1-43.9); Red Blood Count 4.93 M/mm3 (4.6-6.2); White Blood Count 13.9 K/mm3 (4.4-11.0)
[2021-10-11 10:16] LABS: BUN 9 mg/dL (7-18); BUN/Creat Ratio 14.7 RATIO (10-20); Calcium,Total 9.1 mg/dL (8.5-10.1); Carbon Dioxide > 45.0 mmol/L (21.0-32.0); Chloride 87 mmol/L (98-107); Creatinine, Serum 0.61 mg/dL (0.70-1.30); EST Glomerular Filtration Rate 146 mL/min (>60); Est Glom Filt Rate - Afr Amer 177 mL/min (>60); Estimated Creatinine Clearance 155.48 ml/min; Glucose 109 mg/dL (74-106); Potassium 4.3 mmol/L (3.5-5.1); Sodium Level 135 mmol/L (136-145)
--- NOTE | 2021-10-11 10:42 | CT_ITS ---
STUDY: CT LEFT KNEE WITHOUT CONTRAST REASON FOR EXAM: Left knee injury, evaluate left knee fracture. TECHNIQUE: Transaxial CT imaging of the knee was performed. Coronal and sagittal images were reformatted. Individualized dose optimization techniques were used for this CT. COMPARISON: Radiographs obtained earlier today. FINDINGS: There is a comminuted fracture of the medial tibial plateau (coronal reconstructions 36-44) with mild anterior displacement of a major fragment (sagittal reconstructions 53-58) by approximately 0.6 cm. The fracture extends into the midline (coronal reconstructions 39-44). There is preservation of the articular joint space of the medial knee compartment. Normal lateral femoral condyle and lateral tibial plateau. There is preservation of the articular joint space of the lateral knee compartment. Normal patellofemoral articulation. There is a nondisplaced head of the head of the fibula (coronal reconstructions 58-61). Normal proximal tibiofibular articulation. There is a moderate-sized joint effusion. The quadriceps tendon is grossly normal. The patellar tendon is grossly normal. Normal Hoffa''s fat pad. There is soft tissue swelling. There is mild vascular calcification. CT/Extremity Lower without Contra IMPRESSION: Comminuted medial tibial plateau fracture. Nondisplaced fracture of the head of the fibula. Joint effusion. Electronically Signed: Salvador Marcano MD at 11:25 EST Tel , Service support ,
[2021-10-11] MEDS: Ipratropium/Albuterol Sulfate 3 ML AMPUL.NEB INHALATION ×3 (11:16→19:00)
--- NOTE | 2021-10-11 11:24 | HP.PCM.HOS_ITS ---
HPI - General General Date of Admission: 10/11/21 HPI Narrative HARJIT ALBERTS, is a 50 M with an extensive PMH as outlined who presents via the ED on 10/11/2021 with a complaint of left lower extremity injury, which occured after he fell down. He was walking from the bathroom and fell and landed on his left knee. He started having severe right knee pain so he came in to the ED. vitals in the ED were pulse of 78 with respiratory of 16 and he was saturating 90% on 2 L of oxygen. Blood pressure was 155/101. CBC showed wbc of 13.9 and Hb of 16.Chemistry showed sodium of 135 and bicarb of >45, but was otherwise largely unremarkable. CT of the left lower extremity showed a comminuted medial tibial plateau fracture and nondisplaced fracture of the head of the fibula as well as joint effusion. He has been admitted to be managed for fracture of the left tibia and fibula due to mechanical fall as well as left quadriceps tendon rupture. Of note, patient has chronic respiratory failure due to COPD and is on oxygen at home. Patient continues to smoke. On admission his bicarb was elevated at more than 45 and ABG was ordered. Patient initially however refused ABG. [facility] Medical History (Updated 10/11/21 @ 16:[address] Eli Shah MD) Acute respiratory failure with hypoxia and hypercapnia Chronic hypoxemic respiratory failure Congestive heart failure (CHF) HTN (hypertension) Incarcerated umbilical hernia Obesities, morbid LAYLA (obstructive sleep apnea) Pneumonia Pulmonary HTN Seasonal allergies Stage 4 very severe COPD by GOLD classification Tobacco dependence Home Medications furosemide 40 mg PO BID 12/02/15 [History Last Taken 01/10/20 19:00 40 mg] spironolactone 25 mg PO BID 12/02/15 [History Last Taken 01/10/20 08:00 25 mg] guaifenesin 1,200 mg PO Q12H PRN 09/13/18 [History Last Taken 01/10/20 19:00 1200 mg] metoprolol succinate 50 mg PO DAILY 09/13/18 [History Last Taken 01/10/20 08:00 50 mg] ipratropium 0.5 mg-albuterol 3 mg (2.5 mg base)/3 mL nebulization soln 3 ml INHALATION Q6HWA.RT #180 vial 06/30/19 [Rx Last Taken Unknown] montelukast 10 mg tablet 10 mg PO QPM #30 tab 09/08/19 [Rx Last Taken 01/09/20 22:00 10 mg] loratadine 10 mg PO DAILY 01/10/20 [History Last Taken 01/10/20 08:00 10 mg] cholecalciferol (vitamin D3) 5,000 unit PO DAILY #30 tab.rapdis 01/13/20 [Rx Last Taken Unknown] cyanocobalamin (vitamin B-12) 500 mcg PO DAILY tab 01/13/20 [Rx Last Taken Unknown] sertraline 50 mg PO DAILY #30 tab 01/13/20 [Rx Last Taken Unknown] albuterol sulfate 2.5 mg INHALATION Q4H PRN #180 ml 03/11/20 [Rx Last Taken Unknown] albuterol sulfate 90 mcg/actuation aerosol inhaler 2 puff INHALATION Q4H PRN #18 g 06/08/20 [Rx Last Taken Unknown] aspirin 81 mg PO DAILY 06/10/21 [History Last Taken Unknown] budesonide-formoterol [Symbicort] 2 puff INHALATION BID 10/11/21 [History Last Taken Unknown] bupropion HCl [Wellbutrin XL] 150 mg PO BID 10/11/21 [History Last Taken Unknown] fluticasone propionate 2 spray INTRANASAL DAILY PRN 10/11/21 [History Last Taken Unknown] Allergy/AdvReac Type Severity Reaction Status Date / Time clarithromycin [From Biaxin] Allergy Hives Verified 10/11/21 08:58 Penicillins Allergy Hives Verified 10/11/21 08:58 Family History Mother Diabetes Breast cancer Heart disease Hypertension COPD (chronic obstructive pulmonary disease) Asthma Father Hypertension CVA (cerebral vascular accident) Surgical History History of hernia repair (~08/2018) History of tonsillectomy History of tooth extraction Hx of cardiac cath Social History Smoking Status: Current every day smoker tobacco type: cigarettes how long ago did patient quit smokin second hand exposure: Yes quit status: has quit before alcohol intake: never substance use type: does not use ROS Constitutional Constitutional: Denies change in weight, chills, fever(s) or malaise Eyes Eyes: Denies change in vision ENT HEENT: Denies dysphagia or headache(s) Cardiovascular Cardiovascular: Denies chest pain, edema, lightheadedness or rapid heart rate Respiratory/Chest Respiratory/Chest: Reports shortness of breath at rest, shortness of breath with exertion and wheezing; Denies cough or productive cough Gastrointestinal Gastrointestinal: Denies abdominal pain, constipation, nausea or vomiting Genitourinary Genitourinary: Denies burning urination Musculoskeletal Musculoskeletal: Reports arthralgias, joint pain and joint swelling; Denies joint stiffness, myalgias or neck pain Neurologic Neurologic: Reports abnormal gait; Denies confusion, dizziness, focal weakness, headache(s), numbness, seizures or syncope Psychiatric Psychiatric: Denies anxiety or depression Endocrine Endocrinology: Denies change in body appearance Hematologic/Lymphatic Hematologic/Lymphatic: Denies anemia Vital Signs Vital Signs Vital Signs: 10/11/21 08:54 10/11/21 11:19 Temperature 98.4 F Temperature Source Oral Pulse Rate 78 78 Respiratory Rate 22 H 16 Blood Pressure 155/101 H Blood Pressure Mean 119 Pulse Ox 90 90 Oxygen Delivery Method Nasal Cannula Nasal Cannula Oxygen Flow Rate (L/min) 3 2 Weight Weight: 332 lb 14.368 oz Body Mass Index (BMI) 45.1 Physical Exam Const alert and oriented x3 Constitutional Narrative: super morbid obesity General Appearance: cooperative HEENT normocephalic, head/scalp atraumatic and hearing grossly normal bilaterally Eyes PERRL and EOMs intact bilaterally Neck no lymphadenopathy Resp Resp Narrative: Tachypneic. Bilateral wheezing in all lung ring. On 3 L of oxygen by nasal cannula which is his baseline. Cardio Cardio Narrative: tachypneic, normal S1 and S2, no murmurs GI normal to inspection, nondistended, normoactive bowel sounds, soft to palpation, non-tender and non-distended Extremity Extremity Narrative: Swelling around left knee is mildly tender to touch. Peripheral Pulses: Yes pulses 2+ throughout Skin no rashes or lesions noted Neuro oriented x3 and CN's II-XII intact bilaterally Sensorium / Orientation: awake and alert Psych affect normal Results Lab / Micro Data Result Diagrams: 10/11/21 09:35 10/11/21 09:35 Labs: Laboratory Results - last 24 hr 10/11/21 09:35: WBC 13.9 H, RBC 4.93, Hgb 16.0, Hct 52.3, MCV 106.1 H, MCH 32.5 H, MCHC 30.6 L, RDW Std Deviation 53.8 H, RDW Coeff of Valerie 13.5, Plt Count 178, MPV 10.6, Immature Gran % (Auto) 0.600, Neut % (Auto) 80.2 H, Lymph % (Auto) 8.6 L, Dickinson % (Auto) 8.0, Eos % (Auto) 2.2, Baso % (Auto) 0.4, Absolute Neuts (auto) 11.2 H, Absolute Lymphs (auto) 1.19, Nucleated RBC % 0 10/11/21 09:35: Sodium 135 L, Potassium 4.3, Chloride 87 L, Carbon Dioxide > 45.0 H*, Anion Gap TNP, BUN 9, Creatinine 0.61 L, Estim Creat Clear Calc 155.48, Est GFR (MDRD) Af Amer 177, Est GFR (MDRD) Non-Af 146, BUN/Creatinine Ratio 14.7, Glucose 109 H, Calcium 9.1 Radiology Impression Knee X-Ray 10/11/21 09:06 IMPRESSION: Medial tibial plateau fracture. Fibular head fracture. Joint effusion. Electronically Signed: Salvador Marcano MD at 10:32 EST Tel , Service support , Assessment & Plan Assessment/Plan (1) Closed fracture dislocation of joint of left lower extremity: PLAN: #Tibial and fibular fracture of the left lower extremity due to mechanical fall * Admit to PCU on account of respiratory status * PT OT consulted. Fall precautions. * P.o. Tylenol, p.o. oxycodone and IV morphine as needed for pain * Orthopedic surgery consulted. Dr. Mart informed by ED doctor * #Acute on Chronic hypoxic and hypercapnic respiratory failure due to COPD * Patient was 3 to 4 L of oxygen at home. He continues to smoke. * Bicarb is over 45. Patient was initially reluctant to have ABG subsequently was agreeable. ABG showed pH of 7.32 with PCO2 of 82. * Patient placed on BiPAP * Will consult pulmonology * #sinus tachycardia * Patient takes oral metoprolol at home and had not yet taken it this morning. His heart rate went up to the 190s and subsequently came down to the 90s * Will give IV Lopressor as needed and resume his home dose of p.o. metoprolol 50 mg daily * #Stage IV COPD and asthma: On breathing treatments of bronchodilators. On BiPAP as needed as above. #Hypertension: On metoprolol #Chronic heart failure: On spironolactone and Lasix as well as metoprolol. Will check BNP #Depression: On bupropion DVT prophylaxis: Lovenox. Code status: full code * Patient counseled extensively about different types of CODE STATUS including full code, DNR CCA and DNR CCA. Patient elects to be full code. He said he h ad been intubated before for hypercapnia. * Total [id number] time 16 minutes. Charges/Coding Visit Charges Inpatient E&M: 95573 Subs Hosp L3 Multi Select Codes Hospitalists' Procedures Procedures: 87091 Advncd Care Plan 30 Min
--- NOTE | 2021-10-11 12:08 | NURSING ---
PCU GRICELDA LT KNEE FX, LT QUAD RUPTURE
--- NOTE | 2021-10-11 13:34 | PCS.PANDOC ---
PANDEMIC DOCUMENTATION INITIATED: Date: 10/11/2021 Time: 1300
[2021-10-11] MEDS: oxyCODONE 5 MG Tablet 10 MG PO (13:45)
[2021-10-11] MEDS: Metoprolol(XL)Succ 50 MG Tablet PO (15:08)
[2021-10-11] MEDS: Furosemide 40 MG Tablet PO (15:47)
[2021-10-11 15:50] LABS: Allen Test Positive; Base Excess 19 mmol/L (-2 to +2); Bicarbonate 45.2 mmol/L (22-26); Blood Gas Specimen Type ART; O2 Delivery Device Cannula; PO2 50 mmHG (75-100); SITE L Radial; SO2 79 % (95-99); Total Carbon Dioxide 48 mmol/L; pCO2 87.2 mmHg (35-45); pH 7.32 (7.35-7.45)
--- NOTE | 2021-10-11 16:01 | CPS ---
Critical value verified times two.Reported results to charge weigher.
--- NOTE | 2021-10-11 16:10 | EKG12_ITS ---
Test Reason : Blood Pressure : / mmHG Vent. Rate : 084 BPM Atrial Rate : 084 BPM P-R Int : 152 ms QRS Dur : 126 ms QT Int : 392 ms P-R-T Axes : 066 109 038 degrees QTc Int : 463 ms Normal sinus rhythm Right bundle branch block Abnormal ECG When compared with ECG of 16-SEP-2018 13:03, Criteria for Septal infarct are no longer Present Confirmed by INES STEVENS, ADRY ([id number]), primer expeditor and drier SHANTI FINE ([id number]) on 10/12/2021 1:05:11 PM Referred By: ELVIRA Confirmed By:ADRY CHACON MD
[2021-10-11] MEDS: buPROPion (SR) 150 MG Tablet.SA PO ×2 (16:23→21:23)
--- NOTE | 2021-10-11 18:17 | CONS.ORTHO ---
HPI Consult Data Date of Consult: 10/11/21 HPI Narrative HPI Narrative: HARJIT ALBERTS, is a 50 M who presents after a fall in his home when his left knee gave way causing him to fall onto his left leg. He noted immediate pain and inability to bear weight without significant pain. He was seen in the emergency department at [facility] 10/11/2021. X-rays subsequent CT confirmed a medial tibial plateau fracture. Due to worsening COPD and inability to ambulate, patient was admitted under the service of hospitalist. I was asked to see the patient for recommendations of his left lower extremity injury. Denies any numbness or tingling in the left lower extremity. Denies any antecedent knee pain. [facility] Medical History (Updated 10/11/21 @ 17:[address] Michael Hernandez DO) Acute respiratory failure with hypoxia and hypercapnia Chronic hypoxemic respiratory failure Congestive heart failure (CHF) HTN (hypertension) Incarcerated umbilical hernia Obesities, morbid LAYLA (obstructive sleep apnea) Pneumonia Pulmonary HTN Seasonal allergies Stage 4 very severe COPD by GOLD classification Tobacco dependence Home Medications furosemide 40 mg PO BID 12/02/15 [History Last Taken 01/10/20 19:00 40 mg] spironolactone 25 mg PO BID 12/02/15 [History Last Taken 01/10/20 08:00 25 mg] guaifenesin 1,200 mg PO Q12H PRN 09/13/18 [History Last Taken 01/10/20 19:00 1200 mg] metoprolol succinate 50 mg PO DAILY 09/13/18 [History Last Taken 01/10/20 08:00 50 mg] ipratropium 0.5 mg-albuterol 3 mg (2.5 mg base)/3 mL nebulization soln 3 ml INHALATION Q6HWA.RT #180 vial 06/30/19 [Rx Last Taken Unknown] montelukast 10 mg tablet 10 mg PO QPM #30 tab 09/08/19 [Rx Last Taken 01/09/20 22:00 10 mg] loratadine 10 mg PO DAILY 01/10/20 [History Last Taken 01/10/20 08:00 10 mg] cholecalciferol (vitamin D3) 5,000 unit PO DAILY #30 tab.rapdis 01/13/20 [Rx Last Taken Unknown] cyanocobalamin (vitamin B-12) 500 mcg PO DAILY tab 01/13/20 [Rx Last Taken Unknown] sertraline 50 mg PO DAILY #30 tab 01/13/20 [Rx Last Taken Unknown] albuterol sulfate 2.5 mg INHALATION Q4H PRN #180 ml 03/11/20 [Rx Last Taken Unknown] albuterol sulfate 90 mcg/actuation aerosol inhaler 2 puff INHALATION Q4H PRN #18 g 06/08/20 [Rx Last Taken Unknown] aspirin 81 mg PO DAILY 06/10/21 [History Last Taken Unknown] budesonide-formoterol [Symbicort] 2 puff INHALATION BID 10/11/21 [History Last Taken Unknown] bupropion HCl [Wellbutrin XL] 150 mg PO BID 10/11/21 [History Last Taken Unknown] fluticasone propionate 2 spray INTRANASAL DAILY PRN 10/11/21 [History Last Taken Unknown] Allergy/AdvReac Type Severity Reaction Status Date / Time clarithromycin [From Biaxin] Allergy Hives Verified 10/11/21 08:58 Penicillins Allergy Hives Verified 10/11/21 08:58 Family History Mother Diabetes Breast cancer Heart disease Hypertension COPD (chronic obstructive pulmonary disease) Asthma Father Hypertension CVA (cerebral vascular accident) Surgical History History of hernia repair (~08/2018) History of tonsillectomy History of tooth extraction Hx of cardiac cath Social History Smoking Status: Current every day smoker tobacco type: cigarettes how long ago did patient quit smokin second hand exposure: Yes quit status: has quit before alcohol intake: never substance use type: does not use ROS ROS Narrative 10 point review of systems obtained negative unless otherwise noted in HPI. Vital Signs Vital Signs Vital Signs: 10/11/21 08:54 10/11/21 11:19 10/11/21 12:07 Temperature 98.4 F 98.1 F Temperature Source Oral Oral Pulse Rate 78 78 70 Respiratory Rate 22 H 16 20 H Respiratory Effort Respiratory Depth Respiratory Pattern Blood Pressure 155/101 H 115/74 Blood Pressure Mean 119 87 Blood Pressure Source Blood Pressure Position Blood Pressure Location Pulse Ox 90 90 89 Oxygen Delivery Method Nasal Cannula Nasal Cannula Nasal Cannula Oxygen Flow Rate (L/min) 3 2 3 Fraction of Inspired Oxygen (FIO2) 10/11/21 12:39 10/11/21 13:10 10/11/21 13:17 Temperature 98.2 F Temperature Source Temporal Pulse Rate 80 84 Respiratory Rate 22 H Respiratory Effort Labored Respiratory Depth Shallow Respiratory Pattern Tachypnea Blood Pressure 145/74 H Blood Pressure Mean 97 Blood Pressure Source Monitor Blood Pressure Position Semi-Fowlers Blood Pressure Location Right Forearm Pulse Ox 90 Oxygen Delivery Method Nasal Cannula Nasal Cannula Oxygen Flow Rate (L/min) 4 4 Fraction of Inspired Oxygen (FIO2) 10/11/21 14:04 10/11/21 14:10 10/11/21 15:08 Temperature 98.0 F Temperature Source Temporal Pulse Rate 84 114 H 105 H Respiratory Rate 20 H 26 H Respiratory Effort Respiratory Depth Respiratory Pattern Blood Pressure 154/72 H Blood Pressure Mean 99 Blood Pressure Source Monitor Blood Pressure Position Semi-Fowlers Blood Pressure Location Right Forearm Pulse Ox 96 91 Oxygen Delivery Method Nasal Cannula Nasal Cannula Oxygen Flow Rate (L/min) 2 4 Fraction of Inspired Oxygen (FIO2) 10/11/21 15:10 10/11/21 16:07 10/11/21 16:10 Temperature 98.0 F 97.6 F L Temperature Source Temporal Oral Pulse Rate 103 H 119 H 92 Respiratory Rate 25 H 20 H Respiratory Effort Respiratory Depth Respiratory Pattern Blood Pressure 148/82 H 152/88 H Blood Pressure Mean 104 109 Blood Pressure Source Monitor Monitor Blood Pressure Position Semi-Fowlers Semi-Fowlers Blood Pressure Location Right Forearm Right Forearm Pulse Ox 90 91 Oxygen Delivery Method Nasal Cannula Bi-pap Oxygen Flow Rate (L/min) 3 4 Fraction of Inspired Oxygen (FIO2) 50 10/11/21 16:18 10/11/21 16:25 10/11/21 17:45 Temperature 97.6 F L Temperature Source Oral Pulse Rate 89 88 Respiratory Rate 20 H 18 Respiratory Effort Respiratory Depth Respiratory Pattern Normal Blood Pressure 125/79 H Blood Pressure Mean 94 Blood Pressure Source Monitor Blood Pressure Position Semi-Fowlers Blood Pressure Location Right Forearm Pulse Ox 96 80 97 Oxygen Delivery Method Bi-pap Bi-pap Oxygen Flow Rate (L/min) 6 Fraction of Inspired Oxygen (FIO2) 50 45 Weight Weight: 334 lb 14.115 oz Body Mass Index (BMI) 45.8 Physical Exam Narrative General -A&Ox3, NAD, appears stated age. Vital signs stable, afebrile. Respiratory -resting comfortably on BiPAP. CV -pulses regular, brisk capillary refill ?4 limbs. Abdomen-soft, nontender, nondistended. No guarding, rigidity, rebound tenderness. Musculoskeletal/neurologic -full range of motion nontender throughout bilateral upper extremities, right lower extremity with full sensation and strength in all dermatomes and myotomes. No midline cervical tenderness. Left lower extremity-no obvious deformity. Tender to palpation about the left knee mostly in the medial tibial plateau. 4+ effusion with blottable patella left knee. Patient is able to engage his quadriceps. I am unable to palpate any obvious step-off. There is no subcutaneous fluid collection concerning for retinacular or quadriceps disruption. Brisk capillary refill. Sensation intact light touch L3-S1 dermatomes. DF, PF, EHL intact. DP, PT 2+. Pelvis is stable, nontender. Skin is intact without lacerations, abrasions. No ecchymosis noted. Lab / Micro Data Result Diagrams: 10/11/21 09:35 10/11/21 09:35 Labs: Laboratory Results - last 24 hr 10/11/21 09:35: WBC 13.9 H, RBC 4.93, Hgb 16.0, Hct 52.3, MCV 106.1 H, MCH 32.5 H, MCHC 30.6 L, RDW Std Deviation 53.8 H, RDW Coeff of Valerie 13.5, Plt Count 178, MPV 10.6, Immature Gran % (Auto) 0.600, Neut % (Auto) 80.2 H, Lymph % (Auto) 8.6 L, Kershaw % (Auto) 8.0, Eos % (Auto) 2.2, Baso % (Auto) 0.4, Absolute Neuts (auto) 11.2 H, Absolute Lymphs (auto) 1.19, Nucleated RBC % 0 10/11/21 09:35: Sodium 135 L, Potassium 4.3, Chloride 87 L, Carbon Dioxide > 45.0 H*, Anion Gap TNP, BUN 9, Creatinine 0.61 L, Estim Creat Clear Calc 155.48, Est GFR (MDRD) Af Amer 177, Est GFR (MDRD) Non-Af 146, BUN/Creatinine Ratio 14.7, Glucose 109 H, Calcium 9.1 ABG Data ABG results: ABG 10/11/21 15:45 Specimen Type ART Sample Site L Radial pH 7.32 L Bicarbonate Actual 45.2 H Total CO2 48 Base Excess 19 H O2 Saturation 79 L ABG pCO2 87.2 H* ABG pO2 50 L Tal Test Positive O2 Delivery Device Cannula Liter Flow 3.0 Crit Call To/Read Back Yes Radiology Impression Knee X-Ray 10/11/21 09:06 IMPRESSION: Medial tibial plateau fracture. Fibular head fracture. Joint effusion. Electronically Signed: Salvador Marcano MD at 10:32 EST Tel , Service support , Lower Extremity CT 10/11/21 10:42 IMPRESSION: Comminuted medial tibial plateau fracture. Nondisplaced fracture of the head of the fibula. Joint effusion. Electronically Signed: Salvador Marcano MD at 11:25 EST Tel , Service support , Assessment & Plan Assessment/Plan (1) Closed fracture of left tibial plateau: PLAN: Medial tibial plateau fracture left knee Neurovascularly intact Skin intact Due to minimally displaced fracture pattern and significant soft tissue swelling, recommend initial nonoperative management with nonweightbearing in a knee immobilizer. PT/OT already ordered. Ice and elevation recommended to decrease pain and swelling. There was some question regarding a quadriceps tendon rupture. I will obtain an MRI of the left knee to rule this out, as this would a surgical indication especially in the acute setting. Okay to continue therapy while MRI is pending with the knee immobilizer on and nonweightbearing. Will follow
--- NOTE | 2021-10-11 18:24 | MRI_ITS ---
Kings Rene 50 yrs, [id number] 1970 STUDY: MRI LEFT KNEE REASON FOR EXAM: Left knee injury, evaluate left knee fracture.R/o quadriceps rupture left knee TECHNIQUE: Standardized fat and water weighted pulse sequences were obtained in all 3 orthogonal planes. COMPARISON: CT of the left knee dated October 11, 2021. X-ray of the left knee dated October 11, 2021. FINDINGS: Acute mildly comminuted and depressed fracture of the medial and lateral tibial tibial plateau with mild displacement reidentified. A mild impaction fracture with loss of height is also seen in the lateral tibial plateau. Diffuse marrow edema is present across the sites of injury and extending posteriorly. An acute oblique fracture at the periphery of the fibular head is also present with mild displacement. Moderate subcutaneous edema is present around the knee joint. A large hemarthrosis/joint effusion is also present. Mild anterior and posterior muscle strains are present but no significant muscle fiber tears or tendon tears or retraction is demonstrated. A small radial tear of the free edge of the body of the medial meniscus is present. Normal anterior and posterior horn of the medial meniscus. Normal hyaline cartilage of the medial femorotibial compartment. Normal medial femoral condyle. Normal medial collateral ligamentous complex (MCL). Normal distal semimembranosus, gracilis and semitendinosus tendons. Normal lateral meniscus. Normal hyaline cartilage of the lateral femorotibial compartment. Normal lateral femoral condyle. Normal proximal tibiofibular articulation. Normal lateral collateral (fibular) ligament. Normal popliteus tendon. Normal biceps femoris tendon. Normal anterior cruciate ligament (ACL). Normal posterior cruciate ligament (PCL). Normal congruent patellofemoral articulation. Normal hyaline cartilage of the patellofemoral compartment. Normal medial and lateral patellar retinaculum. Normal quadriceps tendon. Normal patellar tendon. Normal Hoffa''s fat pad. MRI/Lower Ext Joint Only (Routine) IMPRESSION: 1. Comminuted fracture of the medial tibial plateau 2. Mild impaction fracture of the lateral tibial plateau 3. Small oblique fracture 4. Large lipohemarthrosis/joint effusion 5. Mild muscle strain injuries in the anterior and posterior compartments 6. Small radial tear of the body of the medial meniscus. Electronically Signed: Grant Dangelo MD at 22:28 EST , Service support ,
[2021-10-11] MEDS: Budesonide Respules 0.5 MG/2 ML AMPUL.NEB. INHALATION (19:00)
[2021-10-11] MEDS: Spironolactone 25 MG Tablet PO (21:23)
[2021-10-11] MEDS: Morphine 4 MG/ML Syringe IV (21:23)
[2021-10-11] MEDS: Montelukast 10 MG Tablet PO (21:23)
[2021-10-11] MEDS: 0.9% Saline Lock 10 ML Syringe IV (21:24)
[2021-10-12] VITALS (18 sets, daily range): BP systolic 127–143; BP diastolic 67–95; PULSE 76–99; RESP 12–24; TEMP 36.3–36.9; O2SAT 92–96
[2021-10-12] MEDS: Ipratropium/Albuterol Sulfate 3 ML AMPUL.NEB INHALATION ×4 (00:35→21:27)
[2021-10-12] MEDS: Acetaminophen 325 MG Tablet 650 MG PO ×2 (02:32→12:20)
[2021-10-12] MEDS: oxyCODONE 5 MG Tablet 10 MG PO ×3 (02:32→21:50)
[2021-10-12 06:28] LABS: Absolute Lymphocyte Count 1.47 X10^3/uL (0.83-4.51); Absolute Neutrophil Count 9.3 X10^3/uL (2.0-7.7); Basophil# 0.05 X10^3/uL; Basophil% 0.4 % (0-1); Eosinophil# 0.31 X10^3/uL; Eosinophils% 2.5 % (0-5); Hematocrit 50.2 % (40-54); Hemoglobin 15.5 g/dL (13.0-16.5); Lymphocyte # 1.47 X10^3/ul (0.83-4.51); Lymphocyte % 11.8 % (19-41); Mean Corp Hgb Conc 30.9 g/dL (32-36); Mean Corpuscular Hgb 32.4 pg (27.0-32.0); Mean Platelet Vol. 10.3 fl (6.2-12.0); Monocyte# 1.33 X10^3/uL; Monocyte% 10.7 % (0-10); NRBC Flagged by Analyzer 0 % (0-5); Neutrophil # 9.25 X10^3/uL (2.7-7.7); Neutrophil % 74.1 % (47-70); Platelet Count 154 K/mm3 (150-450); RBC Distribution Width CV 13.5 % (11.6-14.6); RBC Distribution Width SD 52.7 fl (35.1-43.9); Red Blood Count 4.78 M/mm3 (4.6-6.2); White Blood Count 12.5 K/mm3 (4.4-11.0)
[2021-10-12 07:33] LABS: BUN 11 mg/dL (7-18); BUN/Creat Ratio 19.9 RATIO (10-20); Calcium,Total 9.1 mg/dL (8.5-10.1); Carbon Dioxide > 45.0 mmol/L (21.0-32.0); Chloride 88 mmol/L (98-107); Creatinine, Serum 0.55 mg/dL (0.70-1.30); EST Glomerular Filtration Rate 165 mL/min (>60); Est Glom Filt Rate - Afr Amer 200 mL/min (>60); Estimated Creatinine Clearance 172.44 ml/min; Glucose 106 mg/dL (74-106); Sodium Level 134 mmol/L (136-145)
[2021-10-12] MEDS: Budesonide Respules 0.5 MG/2 ML AMPUL.NEB. INHALATION ×2 (07:55→21:27)
[2021-10-12] MEDS: Aspirin 81 MG TAB.CHEW PO (08:40)
[2021-10-12] MEDS: Cholecalciferol (VIT D3) 25 MCG TABLET (1,000 UNITS) 125 MCG PO (08:40)
[2021-10-12] MEDS: Cyanocobalamin 500 MCG Tablet PO (08:40)
[2021-10-12] MEDS: Sertraline 50 MG Tablet PO (08:41)
[2021-10-12] MEDS: Metoprolol(XL)Succ 50 MG Tablet PO (08:41)
[2021-10-12] MEDS: buPROPion (SR) 150 MG Tablet.SA PO ×2 (08:41→21:49)
[2021-10-12] MEDS: Furosemide 40 MG Tablet PO ×2 (08:41→17:11)
[2021-10-12] MEDS: Spironolactone 25 MG Tablet PO ×2 (08:41→21:50)
[2021-10-12] MEDS: Loratadine 10 MG Tablet PO (08:41)
--- NOTE | 2021-10-12 11:58 | PN.HOSP_ITS ---
Subjective Subjective Patient seen and examined. He had just been taken off BiPAP. He was on 4L of oxygen which is his baseline. The pain in his RLE is well controlled. Review of systems is otherwise negative. Objective Data Objective Data Vital Signs: Vital Signs Temp Pulse Resp BP Pulse Ox 98.1 F 87 14 137/85 H 96 10/12/21 10:34 10/12/21 10:34 10/12/21 10:34 10/12/21 10:34 10/12/21 10:34 Oxygen Flow Rate (L/min) 5 Oxygen Delivery Method Nasal Cannula Weight: 334 lb 14.115 oz Body Mass Index (BMI) 45.8 Intake & Output: Intake and Output for Last 24 Hours 10/10/21 10/11/21 10/12/21 23:59 23:59 23:59 Intake Total 120 / 360 360 / 360 Output Total 200 / 850 650 / 650 Balance -80 / -490 -290 / -290 Lab / Micro Data Result Diagrams: 10/12/21 06:22 10/12/21 06:22 Labs: Laboratory Results - last 24 hr 10/12/21 06:22: WBC 12.5 H, RBC 4.78, Hgb 15.5, Hct 50.2, MCV 105.0 H, MCH 32.4 H, MCHC 30.9 L, RDW Std Deviation 52.7 H, RDW Coeff of Valerie 13.5, Plt Count 154, MPV 10.3, Immature Gran % (Auto) 0.500, Neut % (Auto) 74.1 H, Lymph % (Auto) 11.8 L, [place] % (Auto) 10.7 H, Eos % (Auto) 2.5, Baso % (Auto) 0.4, Absolute Bar ts (auto) 9.3 H, Absolute Lymphs (auto) 1.47, Nucleated RBC % 0 10/12/21 06:22: Sodium 134 L, Potassium 4.0, Chloride 88 L, Carbon Dioxide > 45.0 H*, Anion Gap TNP, BUN 11, Creatinine 0.55 L, Estim Creat Clear Calc 172.44, Est GFR (MDRD) Af Amer 200, Est GFR (MDRD) Non-Af 165, BUN/Creatinine Ratio 19.9, Glucose 106, Calcium 9.1 ABG Data ABG results: ABG 10/11/21 15:45 Specimen Type ART Sample Site L Radial pH 7.32 L Bicarbonate Actual 45.2 H Total CO2 48 Base Excess 19 H O2 Saturation 79 L ABG pCO2 87.2 H* ABG pO2 50 L Tal Test Positive O2 Delivery Device Cannula Liter Flow 3.0 Crit Call To/Read Back Yes Radiography Diagnostic Testing: Radiology Impression Lower Extremity MRI 10/11/21 18:24 IMPRESSION: 1. Comminuted fracture of the medial tibial plateau 2. Mild impaction fracture of the lateral tibial plateau 3. Small oblique fracture 4. Large lipohemarthrosis/joint effusion 5. Mild muscle strain injuries in the anterior and posterior compartments 6. Small radial tear of the body of the medial meniscus. Electronically Signed: Grant Dangelo MD at 22:28 EST , Service support , Physical Exam Const alert and oriented x3 Constitutional Narrative: super morbid obesity General Appearance: cooperative Exam Limitations: no limitations Nutritional Appearance: morbidly obese HEENT normocephalic, head/scalp atraumatic and hearing grossly normal bilaterally Head and Scalp: normocephalic Eyes PERRL and EOMs intact bilaterally Neck no lymphadenopathy Resp normal respiratory effort Resp Narrative: diminished breath sounds bibasally, mild wheezing, no crackles. On 3-4L of oxygen. Cardio regular rate, regular rhythm, S1 normal heart sound, S2 normal heart sound and no murmurs GI normal to inspection, nondistended, normoactive bowel sounds, soft to palpation, non-tender and non-distended Extremity Extremity Narrative: has brace on left knee Peripheral Pulses: Yes pulses 2+ throughout Skin no rashes or lesions noted Neuro oriented x3 and CN's II-XII intact bilaterally Sensorium / Orientation: awake and alert Psych affect normal Assessment & Plan Assessment/Plan (1) Closed fracture dislocation of joint of left lower extremity: PLAN: #Tibial and fibular fracture of the left lower extremity due to mechanical fall * PT/OT on board. * fall precautions * he had MRI of the LLE which showed comminuted fracture of the medial tibial plateau as well as mild impaction fracture of the lateral tibial plateau and a small oblique fracture as well as a large lipohemarthrosis/joint effusion with mild muscle strain injuries in the anterior and posterior compartments and small radial tear of the body of the medial meniscus * PT OT consulted. Fall precautions. * P.o. Tylenol, p.o. oxycodone and IV morphine as needed for pain * Orthopedic surgery on board; advocates conservative management. * #Acute on Chronic hypoxic and hypercapnic respiratory failure due to COPD * Patient was 3 to 4 L of oxygen at home. He continues to smoke. * off BIPAP. Now on his baseline oxygen. * * #sinus tachycardia * resolved. On metoprolol 50mg daily. * #Stage IV COPD and asthma: On breathing treatments of bronchodilators. On BiPAP as needed as above. #Hypertension: On metoprolol #Chronic heart failure: On spironolactone and Lasix as well as metoprolol. #Depression: On bupropion DVT prophylaxis: Lovenox. Code status: lovenox. SCDs * Charges/Coding Visit Charges Inpatient E&M: 91893 Subs Hosp L2
--- NOTE | 2021-10-12 12:23 | NURSING ---
This RN previously applied 21 mg nicotine patch to left shoulder this shift. Pt requesting smaller dose. MD ordered 7 mg patch, applied to right shoulder. 21 mg patch removed at this time.
--- NOTE | 2021-10-12 14:52 | CHAPLAIN ---
Type of Pastoral Visit _x__ Initial Visit ___ Follow-up Visit ___ On-call Visit ___ General Patient Visit ___ Spiritual Assessment ___ Family Conference ___ Bereavement ___ Rapid Response ___ Code Blue ___ Other (describe below) Pastoral Care Referral From _x__ Patient ___ Family ___ Nurse ___ Physician ___ First Beater ___ Joint Cleaning Machine Operator ___ Other (describe below) Sacrament/Intervention _x__ Active listening ___ Anointing ___ Taoist ___ Bereavement ___ Communion ___ Ay[place] exploration ___ ___ Life review _x__ Prayer ___ Reconciliation ___ Sacrament of Sick _x__ Supportive presence ___ Wedding ___ Other (describe below) Pastoral Comments
--- NOTE | 2021-10-12 17:09 | PN.ORTHO_ITS ---
Subjective Subjective Patient seen and examined at bedside this afternoon. Denies any new complaints. Up out of bed with therapy working on a walker. Denies fevers, chills, nausea vomiting, chest pain or shortness of breath. Off BiPAP at time of examination. Objective Data Objective Data Vital Signs: Vital Signs Temp Pulse Resp BP Pulse Ox 98.1 F 86 24 H 137/85 H 93 10/12/21 10:34 10/12/21 14:42 10/12/21 13:13 10/12/21 10:34 10/12/21 14:47 Oxygen Flow Rate (L/min) 5 Oxygen Delivery Method Nasal Cannula Weight: 334 lb 14.115 oz Body Mass Index (BMI) 45.8 Intake & Output: Intake and Output for Last 24 Hours 10/10/21 10/11/21 10/12/21 23:59 23:59 23:59 Intake Total 120 / 360 840 / 840 Output Total 200 / 850 650 / 650 Balance -80 / -490 190 / 190 Lab / Micro Data Result Diagrams: 10/12/21 06:22 10/12/21 06:22 Labs: Laboratory Results - last 24 hr 10/12/21 06:22: WBC 12.5 H, RBC 4.78, Hgb 15.5, Hct 50.2, MCV 105.0 H, MCH 32.4 H, MCHC 30.9 L, RDW Std Deviation 52.7 H, RDW Coeff of Valerie 13.5, Plt Count 154, MPV 10.3, Immature Gran % (Auto) 0.500, Neut % (Auto) 74.1 H, Lymph % (Auto) 11.8 L, [place] % (Auto) 10.7 H, Eos % (Auto) 2.5, Baso % (Auto) 0.4, Absolute Neuts (auto) 9.3 H, Absolute Lymphs (auto) 1.47, Nucleated RBC % 0 10/12/21 06:22: Sodium 134 L, Potassium 4.0, Chloride 88 L, Carbon Dioxide > 45.0 H*, Anion Gap TNP, BUN 11, Creatinine 0.55 L, Estim Creat Clear Calc 172.44, Est GFR (MDRD) Af Amer 200, Est GFR (MDRD) Non-Af 165, BUN/Creatinine Ratio 19.9, Glucose 106, Calcium 9.1 Radiography Diagnostic Testing: Radiology Impression Lower Extremity MRI 10/11/21 18:24 IMPRESSION: 1. Comminuted fracture of the medial tibial plateau 2. Mild impaction fracture of the lateral tibial plateau 3. Small oblique fracture 4. Large lipohemarthrosis/joint effusion 5. Mild muscle strain injuries in the anterior and posterior compartments 6. Small radial tear of the body of the medial meniscus. Electronically Signed: Grant Dangelo MD at 22:28 EST , Service support , Physical Exam Narrative General - A&Ox3, NAD. VSS/AF Left lower extremity -knee immobilizer in place. Appropriately tender about the left knee. Compartments soft and compressible in the left lower leg. Wiggles toes on command. Dorsiflexion and plantarflexion of the ankle are intact. Sensation intact to light touch in sural, saphenous, tibial, SPN, DPN nerve distributions. Palpable DP and PT pulses. Nonpitting edema is noted throughout. Negative Homans' sign. Assessment & Plan Assessment/Plan (1) Closed fracture of left tibial plateau: PLAN: Left tibial plateau fracture -MRI reviewed, agree with radiology interpretation. No evidence of extensor mechanism injury. -Continued nonoperative management recommended in the form of nonweightbearing, knee immobilizer. -PT/OT -Pain control -Recommend outpatient DVT prophylaxis. Likely require placement due to inability to ambulate with restrictions. -Plan to follow-up in 10 to 14 days with myself in the office. We will repeat x-rays at that time. Continue nonweightbearing. Okay to remove knee immobilizer for hygiene. Ice elevation recommended. I will sign off at this point. Please not hesitate to call if any questions or concerns arise.
[2021-10-12] MEDS: Montelukast 10 MG Tablet PO (21:50)
[2021-10-13] VITALS (14 sets, daily range): BP systolic 122–132; BP diastolic 72–83; PULSE 77–97; RESP 12–20; TEMP 36.7–36.9; O2SAT 92–98
[2021-10-13] MEDS: Ipratropium/Albuterol Sulfate 3 ML AMPUL.NEB INHALATION ×3 (04:02→10:00)
[2021-10-13] MEDS: Budesonide Respules 0.5 MG/2 ML AMPUL.NEB. INHALATION (06:50)
[2021-10-13] MEDS: oxyCODONE 5 MG Tablet 10 MG PO ×2 (07:00→13:29)
[2021-10-13 07:01] LABS: Absolute Lymphocyte Count 1.12 X10^3/uL (0.83-4.51); Absolute Neutrophil Count 9.7 X10^3/uL (2.0-7.7); Basophil# 0.04 X10^3/uL; Basophil% 0.3 % (0-1); Eosinophil# 0.41 X10^3/uL; Eosinophils% 3.3 % (0-5); Hematocrit 48.4 % (40-54); Hemoglobin 14.9 g/dL (13.0-16.5); Lymphocyte # 1.12 X10^3/ul (0.83-4.51); Lymphocyte % 8.9 % (19-41); Mean Corp Hgb Conc 30.8 g/dL (32-36); Mean Corpuscular Hgb 32.9 pg (27.0-32.0); Mean Corpuscular Volume 106.8 fL (80-94); Mean Platelet Vol. 10.5 fl (6.2-12.0); Monocyte# 1.29 X10^3/uL; Monocyte% 10.2 % (0-10); NRBC Flagged by Analyzer 0 % (0-5); Neutrophil # 9.68 X10^3/uL (2.7-7.7); Neutrophil % 76.8 % (47-70); Platelet Count 150 K/mm3 (150-450); RBC Distribution Width CV 13.4 % (11.6-14.6); RBC Distribution Width SD 53.1 fl (35.1-43.9); Red Blood Count 4.53 M/mm3 (4.6-6.2); White Blood Count 12.6 K/mm3 (4.4-11.0)
[2021-10-13] MEDS: Cholecalciferol (VIT D3) 25 MCG TABLET (1,000 UNITS) 125 MCG PO (09:24)
[2021-10-13] MEDS: Spironolactone 25 MG Tablet PO (09:24)
[2021-10-13] MEDS: Cyanocobalamin 500 MCG Tablet PO (09:24)
[2021-10-13] MEDS: Aspirin 81 MG TAB.CHEW PO (09:24)
[2021-10-13] MEDS: Furosemide 40 MG Tablet PO (09:25)
[2021-10-13] MEDS: Loratadine 10 MG Tablet PO (09:25)
[2021-10-13] MEDS: Metoprolol(XL)Succ 50 MG Tablet PO (09:25)
[2021-10-13] MEDS: Enoxaparin 40 MG/0.4 ML Syringe SC (09:25)
[2021-10-13] MEDS: buPROPion (SR) 150 MG Tablet.SA PO (09:26)
[2021-10-13] MEDS: Sertraline 50 MG Tablet PO (09:26)
[2021-10-13 09:30] LABS: BUN 13 mg/dL (7-18); BUN/Creat Ratio 28.4 RATIO (10-20); Carbon Dioxide > 45.0 mmol/L (21.0-32.0); Chloride 86 mmol/L (98-107); Creatinine, Serum 0.46 mg/dL (0.70-1.30); EST Glomerular Filtration Rate 205 mL/min (>60); Est Glom Filt Rate - Afr Amer 248 mL/min (>60); Estimated Creatinine Clearance 206.18 ml/min; Glucose 113 mg/dL (74-106); Sodium Level 133 mmol/L (136-145)
--- NOTE | 2021-10-13 10:03 | CASEMGMT ---
SW spoke with patient. Patient had his 3 choices marked on his SNF list. Choices are as follows: [facility]. [facility] [address] [facility]. [facility]. SW let patient know that SW will work on referrals and let him know as soon as SW knows more. SERJIO called Maria Antonia with [facility] regarding referral. Referral was also faxed. Await response. Norah Lee DIETITIAN TEACHER MANUEL
--- NOTE | 2021-10-13 10:50 | CASEMGMT ---
SERJIO received a call from Maria Antonia with [facility]. [facility] can accept patient. They will have a bipap for him. SERJIO notified RN, physician, and patient. Once physician orders are completed SERJIO will work on discharge. Plan: d/c to [facility] under skilled level of care on a convalescent stay. Norah Lee THERAPY DIRECTOR HUMAN RESOURCES TRAINER
--- NOTE | 2021-10-13 13:00 | DS.PCM_ITS ---
Providers Date of Admission: 10/11/21 Primary Care Physician: Dr. Yumi Peralta MD Consultations 10/11/21 13:19 Consult: Orthopedics Routine Consulting Provider: Jer Mart Reason for Consult: fracture of left tibia and fibula due to mechanical fall EMERGENT Consult: No MD Notified: Yes Date Notified: 10/11/21 Time Notified: 13:21 Method of Notification: notified by ED doctor Reason For Visit: LEFT TIBIAL FRACTURE Diagnosis Discharge Diagnosis (1) Closed fracture of left tibial plateau: Status: Acute Code(s): S82.142A - Displaced bicondylar fracture of left tibia, initial encounter for closed fracture Medications at Discharge Home Medications furosemide 40 mg PO BID 12/02/15 spironolactone 25 mg PO BID 12/02/15 guaifenesin 1,200 mg PO Q12H PRN 09/13/18 metoprolol succinate 50 mg PO DAILY 09/13/18 ipratropium 0.5 mg-albuterol 3 mg (2.5 mg base)/3 mL nebulization soln 3 ml INHALATION Q6HWA.RT #180 vial 06/30/19 montelukast 10 mg tablet 10 mg PO QPM #30 tab 09/08/19 loratadine 10 mg PO DAILY 01/10/20 cholecalciferol (vitamin D3) 5,000 unit PO DAILY #30 tab.rapdis 01/13/20 cyanocobalamin (vitamin B-12) 500 mcg PO DAILY tab 01/13/20 sertraline 50 mg PO DAILY #30 tab 01/13/20 albuterol sulfate 2.5 mg INHALATION Q4H PRN #180 ml 03/11/20 albuterol sulfate 90 mcg/actuation aerosol inhaler 2 puff INHALATION Q4H PRN #18 g 06/08/20 aspirin 81 mg PO DAILY 06/10/21 budesonide-formoterol [Symbicort] 2 puff INHALATION BID 10/11/21 bupropion HCl [Wellbutrin XL] 150 mg PO BID 10/11/21 fluticasone propionate 2 spray INTRANASAL DAILY PRN 10/11/21 apixaban [Eliquis] 5 mg PO BID #60 tab 10/13/21 oxycodone 10 mg PO Q6H PRN 5 Days #20 tab 11/18/21 Hospital Course Operations None Procedures None Summary of Care Provided Minutes Spent on Discharge: 45 Hospital Course: HARJIT ALBERTS, is a 50 M with an extensive PMH as outlined who presents via the ED on 10/11/2021 with a complaint of left lower extremity injury, which occured after he fell down. He was walking from the bathroom and fell and landed on his left knee. He started having severe right knee pain so he came in to the ED. vitals in the ED were pulse of 78 with respiratory of 16 and he was saturating 90% on 2 L of oxygen. Blood pressure was 155/101. CBC showed wbc of 13.9 and Hb of 16.Chemistry showed sodium of 135 and bicarb of >45, but was otherwise largely unremarkable. CT of the left lower extremity showed a comminuted medial tibial plateau fracture and nondisplaced fracture of the head of the fibula as well as joint effusion. He has been admitted to be managed for fracture of the left tibia and fibula due to mechanical fall ; there was also a concern about posible left quadriceps tendon rupture. Of note, patient has chronic respiratory failure due to COPD and is on oxygen at home. Patient continues to smoke. On admission his bicarb was elevated at more than 45 and ABG was ordered. Patient initially however refused ABG. Upon being counseled, he was agreeable to getting the ABG done and this showed hypercapnia with pH of 7.32, with pCP2 of 82. He was put on BIPAP for acute on chronic hypercapnic respiratory failure. Orthopedic surgery was consulted. He had an MRI of the LLE done which ruled out a quadriceps tendon rupture and showed a comminuted fracture of the medial tibial plateau as well as mild impaction fracture of the lateral tibial plateau and a small oblique fracture as well as a large lipohemarthrosis/joint effusion with mild muscle strain injuries in the anterior and posterior compartments and small radial tear of the body of the medial meniscus. Orthopedic surgery recommended conservative management. Orthopedic surgery was ok with patient being on chemical DVT prophylaxis. HE was weaned off BIPAP back to his baseline 3-4L of oxygen at home. Physical therapy was consulted and patient was deemed as needing skilled therapy for further rehab. He was discharged to acute rehab facility on 10/13/2021. He was discharged on p.o. [place] 10 mg every 6 hours as needed for total of 5 days and 20 tablets. He is to follow-up with his primary care doctor and to follow-up with orthopedic surgery in 1 to 2 weeks. He was also discharged on p.o. Eliquis 5 mg twice daily for DVT prophylaxis. Patient seen and examined prior to discharge. He was on his baseline oxygen and had no active complaints. Pain was well controlled. Review of systems otherwise negative. Labs and vitals reviewed. Home medication reviewed and reconciled. Physical Exam Const alert and oriented x3 Constitutional Narrative: super morbid obesity General Appearance: cooperative Exam Limitations: no limitations Nutritional Appearance: morbidly obese HEENT normocephalic, head/scalp atraumatic and hearing grossly normal bilaterally Eyes PERRL and EOMs intact bilaterally Neck no lymphadenopathy Resp normal respiratory effort Resp Narrative: diminished breath sounds bibasally, mild wheezing, no crackles. On 3-4L of oxygen. Cardio regular rate, regular rhythm, S1 normal heart sound, S2 normal heart sound and no murmurs Cardio Narrative: tachypneic, normal S1 and S2, no murmurs GI normal to inspection, nondistended, normoactive bowel sounds, soft to palpation, non-tender and non-distended Extremity Extremity Narrative: has brace on left knee Skin no rashes or lesions noted Neuro oriented x3 and CN's II-XII intact bilaterally Sensorium / Orientation: awake and alert Psych affect normal Weight / BMI Weight Weight: 334 lb 14.115 oz Body Mass Index (BMI) 45.8 ABG / Lab / Microbiology Data Result Diagrams: 10/13/21 06:45 10/13/21 08:32 Laboratory: Laboratory Results - last 24 hr 10/13/21 06:45: WBC 12.6 H, RBC 4.53 L, Hgb 14.9, Hct 48.4, MCV 106.8 H, MCH 32.9 H, MCHC 30.8 L, RDW Std Deviation 53.1 H, RDW Coeff of Valerie 13.4, Plt Count 150, MPV 10.5, Immature Gran % (Auto) 0.500, Neut % (Auto) 76.8 H, Lymph % (Auto) 8.9 L, [place] % (Auto) 10.2 H, Eos % (Auto) 3.3, Baso % (Auto) 0.3, Absolute Neuts (auto) 9.7 H, Absolute Lymphs (auto) 1.12, Nucleated RBC % 0 10/13/21 06:45: Sodium Cancelled, Potassium Cancelled, Chloride Cancelled, Carbon Dioxide Cancelled, Anion Gap Cancelled, BUN Cancelled, Creatinine Cancelled, Estim Creat Clear Calc Cancelled, Est GFR (MDRD) Af Amer Cancelled, Est GFR (MDRD) Non-Af Cancelled, BUN/Creatinine Ratio Cancelled, Glucose Cancelled, Calcium Cancelled 10/13/21 08:32: Sodium 133 L, Potassium 4.0, Chloride 86 L, Carbon Dioxide > 45.0 H*, Anion Gap TNP, BUN 13, Creatinine 0.46 L, Estim Creat Clear Calc 206.18, Est GFR (MDRD) Af Amer 248, Est GFR (MDRD) Non-Af 205, BUN/Creatinine Ratio 28.4 H, Glucose 113 H, Calcium 9.0 D/C Instructions Discharge Diet: Low fat / Low cholesterol Discharge Activity: Return to Normal Activity Weight Bearing Status: Weight bearing as tolerated Call your doctor if you observe: Fever of 101 or Higher and Uncontrolled pain Meaningful Use Info Meaningful Use Diagnoses (Choose all that apply): None applicable Discharge Plan Admission Admit Date/Time: 10/11/21 11:36 Primary Reason for Your Visit: mechanical fall with left tibia and fibula fracture Attending Provider: Eli Shah Primary Care Provider: Yumi Peralta Consulting Providers: Jer Mart Discharge Orders/Prescriptions Prescriptions: New oxycodone 10 mg tablet 10 mg PO Q6H PRN (Reason: pain) 5 Days Qty: 20 RF: 0 Eliquis 5 mg tablet 5 mg PO BID Qty: 60 RF: 0 Continued spironolactone 25 MG tablet 25 mg PO BID RF: 0 furosemide 20 MG tablet 40 mg PO BID RF: 0 metoprolol succinate 50 MG tablet extended release 24 hr 50 mg PO DAILY RF: 0 guaifenesin 1,200 MG tablet extended release 12hr 1,200 mg PO Q12H PRN (Reason: Cough) RF: 0 loratadine 10 MG tablet 10 mg PO DAILY RF: 0 cyanocobalamin (vitamin B-12) 500 MCG tablet 500 mcg PO DAILY RF: 0 cholecalciferol (vitamin D3) 5,000 UNIT tablet,disintegrating 5,000 unit PO DAILY Qty: 30 RF: 0 sertraline 50 MG tablet 50 mg PO DAILY Qty: 30 RF: 0 aspirin 81 mg Tablet 81 mg PO DAILY RF: 0 budesonide-formoterol [Symbicort] 160-4.5 mcg/actuation Hfa Aerosol Inhaler 2 puff INHALATION BID RF: 0 fluticasone propionate 50 mcg/actuation spray,suspension 2 spray Intranasal DAILY PRN (Reason: Congestion) RF: 0 bupropion HCl [Wellbutrin XL] 150 mg Tablet Extended Release 24 Hr 150 mg PO BID RF: 0 ipratropium-albuterol 0.5 mg-3 mg(2.5 mg base)/3 mL solution for nebulization 3 ml INHALATION Q6HWA.RT Qty: 180 RF: 11 montelukast [Singulair] 10 mg tablet 10 mg PO QPM Qty: 30 RF: 6 albuterol sulfate 2.5 mg /3 mL (0.083 %) solution for nebulization 2.5 mg INHALATION Q4H PRN (Reason: shortness of breath or wheezing) Qty: 180 RF: 6 albuterol sulfate [Ventolin HFA] 90 mcg/actuation HFA aerosol inhaler 2 puff INHALATION Q4H PRN (Reason: shortness of breath or wheezing) Qty: 18 RF: 6 Referrals / Follow Up: Yumi Peralta MD [Primary Care Provider] - Jer Mart DO [STAFF PHYSICIAN] - In 1 Week Charges/Coding Visit Charges Inpatient E&M: [id number] [facility] Hosp
--- NOTE | 2021-10-13 13:32 | PCM.TXEXTCAR ---
Diet 10/11/21 13:20 Diet: Cardiac - Heart Healthy Food consistency:: Regular Liquid Consistency:: Regular/Thin Is pt able to select menu?: Yes Routine Orders/Code Status Enema Type: Fleetz Enema Frequency: Daily PRN Suppository Type: Dulcolax 10mg Suppository Frequency: Daily PRN O2 Liters per Minute: 4 O2 Frequency: Continuous Keep PO Greater than or Equal to (%): 90 Therapies Weight Bearing: Weight bearing as tolerated Physical Therapy: Eval and Treat Occupational Therapy: Eval and Treat Problem/Diagnosis (1) Closed fracture of left tibial plateau: Status: Acute Allergies/Procedures Done in Hospital Allergies clarithromycin [From Biaxin] Allergy (Verified 10/11/21 08:58) Hives Penicillins Allergy (Verified 10/11/21 08:58) Hives Procedures: None Type of Care/Length of Stay Estimated LOS: Convalescent Care Less Than 30 days Type of Care Needed: Skilled Rehab Potential: Good Prognosis: Good Additional Orders/Day of Discharge Day of Discharge: 10/13/21 Dietary and Speech Recommendations Dietitian Recommendations/Changes: Continue cardiac diet as ordered; monitor need for carbohydrate-controlled restriction given hx of hyperglycemia. ONS only if PO fails at meals; not indicated at this time. Discharge Plan Admission Admit Date/Time: 10/11/21 11:36 Primary Reason for Your Visit: mechanical fall with left tibia and fibula fracture Attending Provider: Eli Shah Primary Care Provider: Yumi Peralta Consulting Providers: Jer Mart Discharge Orders/Prescriptions Prescriptions: New oxycodone 10 mg tablet 10 mg PO Q6H PRN (Reason: pain) 5 Days Qty: 20 RF: 0 Eliquis 5 mg tablet 5 mg PO BID Qty: 60 RF: 0 Continued spironolactone 25 MG tablet 25 mg PO BID RF: 0 furosemide 20 MG tablet 40 mg PO BID RF: 0 metoprolol succinate 50 MG tablet extended release 24 hr 50 mg PO DAILY RF: 0 guaifenesin 1,200 MG tablet extended release 12hr 1,200 mg PO Q12H PRN (Reason: Cough) RF: 0 loratadine 10 MG tablet 10 mg PO DAILY RF: 0 cyanocobalamin (vitamin B-12) 500 MCG tablet 500 mcg PO DAILY RF: 0 cholecalciferol (vitamin D3) 5,000 UNIT tablet,disintegrating 5,000 unit PO DAILY Qty: 30 RF: 0 sertraline 50 MG tablet 50 mg PO DAILY Qty: 30 RF: 0 aspirin 81 mg Tablet 81 mg PO DAILY RF: 0 budesonide-formoterol [Symbicort] 160-4.5 mcg/actuation Hfa Aerosol Inhaler 2 puff INHALATION BID RF: 0 fluticasone propionate 50 mcg/actuation spray,suspension 2 spray Intranasal DAILY PRN (Reason: Congestion) RF: 0 bupropion HCl [Wellbutrin XL] 150 mg Tablet Extended Release 24 Hr 150 mg PO BID RF: 0 ipratropium-albuterol 0.5 mg-3 mg(2.5 mg base)/3 mL solution for nebulization 3 ml INHALATION Q6HWA.RT Qty: 180 RF: 11 montelukast [Singulair] 10 mg tablet 10 mg PO QPM Qty: 30 RF: 6 albuterol sulfate 2.5 mg /3 mL (0.083 %) solution for nebulization 2.5 mg INHALATION Q4H PRN (Reason: shortness of breath or wheezing) Qty: 180 RF: 6 albuterol sulfate [Ventolin HFA] 90 mcg/actuation HFA aerosol inhaler 2 puff INHALATION Q4H PRN (Reason: shortness of breath or wheezing) Qty: 18 RF: 6 Referrals / Follow Up: Yumi Peralta MD [Primary Care Provider] - Jer Mart DO [STAFF PHYSICIAN] - In 1 Week Disposition Disposition (needs filled in before D/C Order can be placed): Senior Living Facility
--- NOTE | 2021-10-13 14:04 | CASEMGMT ---
SERJIO faxed d/c orders and negative COVID to Maria Antonia with [facility]. SW completed a convalescent on HENS. SERJIO arranged for patient to get picked up at 1530 via cot. SERJIO notified RN, financial secretary, patient, and Maria Antonia at [facility]. All in agreement with d/c plan. Plan: d/c to [facility] under skilled level of care on a convalescent stay. Physicians transported via cot. Norah Lee BUSINESS ENTERPRISE OFFICER MANUEL
--- NOTE | 2021-10-13 15:17 | NURSING ---
Report given to Elvia Molina.
[2021-10-13] MEDS: Morphine 4 MG/ML Syringe IV (15:23)
== END 2021-10-13 15:52 | disposition skilled nursing facility (03) | DRG 562 ==
LOC: ED 09:45 → PCU 12:00
PROVIDERS: Admitting Provider Student in an Organized Health Care Education/Training Program; Emergency Provider Emergency Medicine; PCP Family Medicine; Visit Provider Student in an Organized Health Care Education/Training Program
DX: S82.142A Displaced bicondylar fracture of left tibia, initial encounter for closed fracture (principal); J96.22 Acute and chronic respiratory failure with hypercapnia; J96.21 Acute and chronic respiratory failure with hypoxia; Z68.42 Body mass index [BMI] 45.0-49.9, adult; I50.32 Chronic diastolic (congestive) heart failure; I11.0 Hypertensive heart disease with heart failure; S86.212A Strain of muscle(s) and tendon(s) of anterior muscle group at lower leg level, left leg, initial encounter; S86.112A Strain of other muscle(s) and tendon(s) of posterior muscle group at lower leg level, left leg, initial encounter; S83.242A Other tear of medial meniscus, current injury, left knee, initial encounter; W18.39XA Other fall on same level, initial encounter; Y93.01 Activity, walking, marching and hiking; Y92.009 Unspecified place in unspecified non-institutional (private) residence as the place of occurrence of the external cause; E66.01 Morbid (severe) obesity due to excess calories; J44.9 Chronic obstructive pulmonary disease, unspecified; F32.A Depression, unspecified; F17.210 Nicotine dependence, cigarettes, uncomplicated; R00.0 Tachycardia, unspecified; Z79.82 Long term (current) use of aspirin; Z79.01 Long term (current) use of anticoagulants; Z99.81 Dependence on supplemental oxygen; Z79.899 Other long term (current) drug therapy; Z23 Encounter for immunization
CPT/HCPCS: 36415; 36600; 73560; 73700; 73721; 80048; 82803; 85025; 87426; 93005; 94002; 94003; 94640; 97163; 97166; 97802; 99285; G0008; 90686; A4216

== ENCOUNTER → 2021-10-24 14:25 | Outpatient (CLI) | payer MEDICARE, SELFPAY ==
--- NOTE | 2021-10-24 14:29 | VDLE_ITS ---
Reason For Study: LLE edema Procedure LEFT This is a venous duplex using B-mode, color GSV is normal. flow and spectral Doppler. FV is compressible, spontaneous, phasic, Exam performed in department. competent and demonstrates normal A preliminary report was called and/or faxed augmentation. to Brittny. CFV and SFJ not visualized due to patient body habitus and didn't want to take of pants. FV distal, PopV, and T/P Trunk visualized with color only, unable to tolerate compression. Normal venous flow noted in the PopV. PTV is compressible. LT PerV is compressible. VL/Venous Duplex US, Unilateral Interpretation Summary Deep veins of the left lower extremity are patent. There is no evidence of left lower extremity deep vein thrombosis. The left great saphenous vein appears patent and compressible segmentally. The left common femoral vein and sapheno-femoral juction were not visualized due to the patient's body habitus. Ordering Physician: Jer Mart Referring Physician: Yumi Peralta Performed By: Ariana Mullins RVT
== END ==
LOC: CVS 14:27
PROVIDERS: PCP Family Medicine; Referring Provider Student in an Organized Health Care Education/Training Program; Visit Provider Student in an Organized Health Care Education/Training Program
DX: R22.42 Localized swelling, mass and lump, left lower limb (principal)
CPT/HCPCS: 93971

== ENCOUNTER 2021-11-08 07:52 | Day surgery (SDC) | payer MEDICARE, SELFPAY ==
[2021-11-08] VITALS (17 sets, daily range): BP systolic 118–163; BP diastolic 70–90; PULSE 59–83; RESP 10–20; TEMP 36.1–36.9; O2SAT 2–96; BMI 44.7
[2021-11-08] MEDS: Lactated Ringers 1,000 ML 15 ML IV (09:01)
--- NOTE | 2021-11-08 11:05 | RAD_ITS ---
STUDY: X-RAY - LEFT KNEE REASON FOR EXAM: Male, 50 years old. Tibial fracture TECHNIQUE: 3 limited intraoperative view(s) of the knee. COMPARISON: None. FINDINGS: 3 known intraoperative views were performed as the patient has undergone open reduction internal fixation of a proximal fibular fracture. A metallic sideplate is been placed along the medial tibia anchored with multiple screws. Alignment the fracture site is anatomic. Follow-up is recommended to ensure osseous union RAD/Knee 1 or 2 Views IMPRESSION: Intraoperative fixation of a proximal tibial fracture, no complications noted Electronically Signed: Fuentes Zavala MD at 17:19 EST , Service support ,
[2021-11-08] MEDS: Bupivacaine Mpf 0.5% 30 ML VIAL (12:15)
--- NOTE | 2021-11-08 12:36 | PCM.DC ---
Discharge Instructions Follow Up Care Test Results: Test results from this visit will be discussed in further detail at your follow-up appointment, if applicable. Discharge Plan Admission Admit Date/Time: 11/08/21 07:52 Primary Reason for Your Visit: Left tibial plateau open reduction internal fixation Attending Provider: Jer Mart Primary Care Provider: Yumi Peralta Instructions Additional Instructions / Restrictions: Okay to remove González bandage on postoperative day #2. Maintain surgical dressing until postoperative day #7 if not saturated. If saturated, okay to remove on postoperative day #2 and shower and cover with dry sterile dressing changes for the first week. If not saturated, maintain surgical dressing and shower is okay on postoperative day #2. No tub soaks. Nonweightbearing left lower extremity. Range of motion as tolerated left knee. Ice and elevation recommended. Restart Eliquis 11/09/2021. Discharge Orders/Prescriptions Prescriptions: New oxycodone 10 mg tablet 10 mg PO Q4H PRN (Reason: pain) 7 Days Qty: 42 RF: 0 Continued albuterol sulfate 2.5 mg /3 mL (0.083 %) solution for nebulization 2.5 mg INHALATION Q4H PRN (Reason: shortness of breath or wheezing) Qty: 180 RF: 6 ipratropium-albuterol 0.5 mg-3 mg(2.5 mg base)/3 mL solution for nebulization 3 ml INHALATION Q6HWA.RT Qty: 180 RF: 11 albuterol sulfate [Ventolin HFA] 90 mcg/actuation HFA aerosol inhaler 2 puff INHALATION Q4H PRN (Reason: shortness of breath or wheezing) Qty: 18 RF: 6 spironolactone 25 MG tablet 25 mg PO BID RF: 0 furosemide 20 MG tablet 20 mg PO BID RF: 0 metoprolol succinate 50 MG tablet extended release 24 hr 50 mg PO DAILY RF: 0 guaifenesin 1,200 MG tablet extended release 12hr 1,200 mg PO Q12H PRN (Reason: Cough) RF: 0 loratadine 10 MG tablet 10 mg PO DAILY RF: 0 aspirin 81 mg Tablet 81 mg PO DAILY RF: 0 fluticasone propionate 50 mcg/actuation spray,suspension 2 spray Intranasal DAILY RF: 0 bupropion HCl [Wellbutrin XL] 150 mg Tablet Extended Release 24 Hr 150 mg PO BID RF: 0 oxycodone 10 mg tablet 10 mg PO Q6H PRN (Reason: pain) 5 Days Qty: 20 RF: 0 acetaminophen 500 mg Tablet 1,000 mg PO Q6H PRN (Reason: Pain) RF: 0 sertraline 50 MG tablet 50 mg PO QHS RF: 0 ipratropium-albuterol 0.5 mg-3 mg(2.5 mg base)/3 mL Solution For Nebulization 3 ml INHALATION Q4H PRN (Reason: Wheezing) RF: 0 cyanocobalamin (vitamin B-12) 500 MCG tablet 500 mcg PO DAILY RF: 0 montelukast [Singulair] 10 mg tablet 10 mg PO QPM RF: 0 budesonide-formoterol [Symbicort] 160-4.5 mcg/actuation HFA aerosol inhaler 2 puff INHALATION BID RF: 0 Eliquis 5 mg tablet 5 mg PO BID RF: 0 cholecalciferol (vitamin D3) 5,000 UNIT tablet,disintegrating 5,000 unit PO DAILY RF: 0 Referrals / Follow Up: Yumi Peralta MD [Primary Care Provider] - Jer Mart DO [STAFF PHYSICIAN] - Within 2 Weeks Disposition Disposition (needs filled in before D/C Order can be placed): [facility]
--- NOTE | 2021-11-08 12:37 | OP.PCM_ITS ---
Report of Operation Date of Procedure: 11/08/21 Surgery/Procedure Performed:: Preoperative diagnosis: Left displaced closed med ial tibial plateau fracture Postoperative diagnosis: Left displaced closed medial tibial plateau fracture Procedure: 1. Open reduction internal fixation medial tibial plateau fracture Surgeon: Jer Mart DO Rail Track Layer: FLORECITA Thomas Anesthesia: General LMA Anesthesiologist: Dr. Suarez Complications: None Drains: None Estimated blood loss: 50 cc Urinary output: None IV fluids: Per anesthesia record Specimens: None Surgical implants: Titus AxSOS 3 titanium 4.0 mm proximal Proximal medial tibial plate 3-hole Indications: This is a 50-year-old morbidly obese male who sustained a left tibial plateau fracture approximately 3 weeks ago after a ground-level mechanical fall. He sustained the above fracture. He was initially attempted t o be managed nonoperatively due to advanced lung disease. Follow-up x-rays revealed further displacement of the knee medial tibial plateau. Operative intervention in the form of open reduction internal fixation was recommended. The risk, benefits, alternatives procedure reviewed with patient at length eager to proceed. Risks include but were not limited to bleeding, infection, loss of life or limb, failure of orthopedic fixation, neurovascular injury, instability, need for additional surgery, persistent pain, risk of anesthesia. Patient expressed understanding his risk wish to proceed with surgery. Description of procedure: Patient arrived to the [facility] on the morning of 11/08/2021. She was seen by the same day surgery staff. Prior to his procedure, he was brought to the preoperative holding area. Identified the patient by his name, medical record number, and date of . The operative extremity was marked. Informed consent was again confirmed with the patient and all questions answered were to the patient satisfaction. Patient was also seen by the anesthesia staff prior to the procedure. At time of his procedure he was brought to the operative suite and positioned supine a standard operating table. General anesthesia was induced and laryngeal mask airway placed. After adequate anesthesia, we prepared the left lower extremity for surgery. 3 g Ancef was administered prior to incision. We then prepped and draped the left lower extremity in normal, sterile orthopedic fashion with chlorhexidine. I first turned my attention to the medial plateau. I exsanguinated the lower extremity with Esmarch bandage. Tourniquet was inflated to 300 mmHg remained up for approximately 60 minutes. I performed a standard medial approach to the tibial plateau. I made a curvilinear incision centered over the posterior medial border of the tibial plateau, approximately 1 fingerbreadth posterior in line with the long axis of the tibia curving proximally around the metaphysis. Full-thickness skin flaps were developed. Identified the saphenous vein immediately deep to the skin and retracted anteriorly. Muscular fascia was then identified. I was able to visualize the saphenous nerve deep to the fascia. I made a poke incision with a 15 blade through the fascia just posterior to the nerve. I used scissors to transect the muscular investing fascia and to allow for retraction of the saphenous nerve anteriorly. I then encountered the pes anserinus tendons which were retracted anteriorly. The posterior medial border of the tibia was then identified and subperiosteal dissection was carried around the posterior border of the tibia. Fracture site was encountered. Provisional reduction was performed with knee extension and pointed reduction clamp. I then selected a precontoured periarticular plate from [employer]. This was placed according to the patient's [place] anatomy after near-anatomic reduction was performed. I then placed a apex screw to establish a buttress technique utilizing a cortical screw. This achieved better reduction. I placed another cortical screw distal to the first. I then secured the proximal segment with a partially threaded cancellous screw and 2 locking screws in standard fashion. Fluoroscopic orthogonal images confirmed anatomic reduction of the medial column. Tourniquet was deflated. Hemostasis was excellent. I closed the deeper layers with #1 Vicryl suture. Dermis was reapproximated with buried 2-0 Vicryl suture. Skin was finally reapproximated with trisha. Sterile compressi ve dressing was applied. Patient tolerated procedure well without apparent complication. He was transferred to a gurney and subsequently to PACU in stable condition. Post Operative Plan: Weightbearing: Nonweightbearing left lower extremity Antibiotics: 3 g Ancef administered prior to incision, no indication for postoperative antibiotics DVT Prophylaxis: Eliquis 5 mg to restart tomorrow Morrison: None Dressing: Maintain x2 days, then okay to remove and shower. Maintain silver Mepilex dressing x7 days if no saturation. Otherwise, dry sterile dressing changes daily. X-Rays: To be obtained in office in 2 weeks at follow-up. Pain Medication: Oxycodone prescription sent to [facility] pharmacy Follow-up: Follow-up with me in 2 weeks in the office for wound check, staple removal, and x-rays.
--- NOTE | 2021-11-08 13:15 | RAD_ITS ---
STUDY: X-RAY - LEFT FOOT CLINICAL: Male, 50 years old. PAIN TECHNIQUE: 3 view(s) of the foot. COMPARISON: None. FINDINGS: Normal talus, calcaneus, and tarsal bones. Normal visualized subtalar, talonavicular, calcaneocuboid, tarsal and tarsometatarsal articulations. Normal metatarsi. Normal metatarsophalangeal joint of the great toe. Normal tibial and fibular sesamoid bones. Normal interphalangeal joint of the great toe. Normal phalanges of the great toe. Normal second through fifth metatarsophalangeal joints. Normal interphalangeal joints and phalanges of the lesser toes. The soft tissue structures are unremarkable. RAD/Foot min 3 Views IMPRESSION: No demonstrated fracture or malalignment. Electronically Signed: Alejandro Cordero MD (Brooks) at 16:27 EST , Service support ,
[2021-11-08] MEDS: Ipratropium/Albuterol Sulfate 3 ML AMPUL.NEB INHALATION ×2 (13:39)
[2021-11-08] MEDS: oxyCODONE 5 MG Tablet 10 MG PO ×2 (15:55→17:18)
== END 2021-11-08 17:30 | DRG 493 ==
LOC: ACINP 12:36 → SDC 04-21 12:40
PROVIDERS: PCP Family Medicine; Referring Provider Student in an Organized Health Care Education/Training Program; Visit Provider Student in an Organized Health Care Education/Training Program
PROC: (CPT 27535; principal; 2021-11-08 09:15)
DX: S82.132A Displaced fracture of medial condyle of left tibia, initial encounter for closed fracture (principal); J44.9 Chronic obstructive pulmonary disease, unspecified; I11.0 Hypertensive heart disease with heart failure; I50.31 Acute diastolic (congestive) heart failure; I27.20 Pulmonary hypertension, unspecified; J96.11 Chronic respiratory failure with hypoxia; Z68.42 Body mass index [BMI] 45.0-49.9, adult; E66.01 Morbid (severe) obesity due to excess calories; W18.30XA Fall on same level, unspecified, initial encounter; I45.10 Unspecified right bundle-branch block; J45.50 Severe persistent asthma, uncomplicated; G47.33 Obstructive sleep apnea (adult) (pediatric); Z71.3 Dietary counseling and surveillance; Z99.81 Dependence on supplemental oxygen; Z79.899 Other long term (current) drug therapy; Z86.711 Personal history of pulmonary embolism; Z86.718 Personal history of other venous thrombosis and embolism; Z87.891 Personal history of nicotine dependence
CPT/HCPCS: 27535; 01392; 73560; 73630; 76000; 86850; 86900; 86901; 94002; 94640; C1713; J2405

== ENCOUNTER 2022-01-23 10:46 | Outpatient (CLI) | payer MEDICARE, SELFPAY ==
[2022-01-23 11:19] LABS: Absolute Lymphocyte Count 2.11 X10^3/uL (0.83-4.51); Absolute Neutrophil Count 7.1 X10^3/uL (2.0-7.7); Basophil# 0.08 X10^3/uL; Basophil% 0.7 % (0-1); Eosinophil# 0.61 X10^3/uL; Eosinophils% 5.5 % (0-5); Hematocrit 44.9 % (40-54); Hemoglobin 14.2 g/dL (13.0-16.5); Lymphocyte # 2.11 X10^3/ul (0.83-4.51); Lymphocyte % 18.9 % (19-41); Mean Corp Hgb Conc 31.6 g/dL (32-36); Mean Corpuscular Hgb 31.8 pg (27.0-32.0); Mean Corpuscular Volume 100.7 fL (80-94); Mean Platelet Vol. 9.9 fl (6.2-12.0); Monocyte# 1.11 X10^3/uL; NRBC Flagged by Analyzer 0 % (0-5); Neutrophil # 7.12 X10^3/uL (2.7-7.7); Neutrophil % 63.8 % (47-70); Platelet Count 214 K/mm3 (150-450); RBC Distribution Width CV 13.6 % (11.6-14.6); RBC Distribution Width SD 49.9 fl (35.1-43.9); Red Blood Count 4.46 M/mm3 (4.6-6.2); White Blood Count 11.2 K/mm3 (4.4-11.0)
== END 2022-01-23 23:59 | disposition home or self-care (01) ==
PROVIDERS: PCP Family Medicine; Referring Provider Nurse Practitioner Acute Care; Visit Provider Nurse Practitioner Acute Care
DX: J45.50 Severe persistent asthma, uncomplicated (principal)
CPT/HCPCS: 36415; 85025; 94667

== ENCOUNTER → 2022-05-23 | Outpatient (CLI) | payer MEDICARE, SELFPAY | END | disposition home or self-care (01) | LOC: LABSPEC 14:07 | PROVIDERS: PCP Family Medicine; Referring Provider Internal Medicine Critical Care Medicine; Visit Provider Internal Medicine Critical Care Medicine | DX: J44.9 Chronic obstructive pulmonary disease, unspecified (principal) | CPT/HCPCS: 87070; 87205 ==

== ENCOUNTER → 2022-07-10 | Outpatient (CLI) | payer MEDICARE, SELFPAY ==
[2022-07-10 11:41] LABS: Basophil# 0.07 X10^3/uL; Basophil% 0.7 % (0-1); Eosinophil# 0.44 X10^3/uL; Eosinophils% 4.5 % (0-5); Hematocrit 49.4 % (40-54); Hemoglobin 15.4 g/dL (13.0-16.5); Lymphocyte % 15.3 % (19-41); Mean Corp Hgb Conc 31.2 g/dL (32-36); Mean Corpuscular Hgb 32.2 pg (27.0-32.0); Mean Corpuscular Volume 103.1 fL (80-94); Mean Platelet Vol. 10.7 fl (6.2-12.0); Monocyte% 7.2 % (0-10); NRBC Flagged by Analyzer 0 % (0-5); Neutrophil # 7.03 X10^3/uL (2.7-7.7); Neutrophil % 71.8 % (47-70); Platelet Count 189 K/mm3 (150-450); RBC Distribution Width CV 13.2 % (11.6-14.6); RBC Distribution Width SD 51.1 fl (35.1-43.9); Red Blood Count 4.79 M/mm3 (4.6-6.2); White Blood Count 9.8 K/mm3 (4.4-11.0)
== END | disposition home or self-care (01) ==
LOC: PAVLAB 11:27
PROVIDERS: PCP Family Medicine; Referring Provider Nurse Practitioner Acute Care; Visit Provider Nurse Practitioner Acute Care
DX: J45.50 Severe persistent asthma, uncomplicated (principal)
CPT/HCPCS: 36415; 85025

== ENCOUNTER 2022-11-05 18:17 | Inpatient (IN) | payer MEDICARE, SELFPAY ==
[2022-11-05] VITALS (14 sets, daily range): BP systolic 142–191; BP diastolic 98–120; PULSE 72–103; RESP 10–22; TEMP 36.6–37.2; O2SAT 84–98; BMI 47.7; BMI 47.2
--- NOTE | 2022-11-05 18:21 | EKG12_ITS ---
Test Reason : RF Blood Pressure : / mmHG Vent. Rate : 102 BPM Atrial Rate : 102 BPM P-R Int : 156 ms QRS Dur : 126 ms QT Int : 350 ms P-R-T Axes : 053 119 047 degrees QTc Int : 456 ms Sinus tachycardia Right bundle branch block Septal infarct , age undetermined , cannot be excluded Abnormal ECG Confirmed by JOHNIE STEVENS, KANDACE ([id number]), food editor SHANTI FINE ([id number]) on 11/08/2022 11:00:44 AM Referred By: Confirmed By:KANDACE JETT MD
--- NOTE | 2022-11-05 18:25 | EDS_ITS ---
HPI History of Present Illness Chief Complaint: Shortness of Breath Detail of Chief Complaint: Worsening over the past several days Informant: patient and spouse/S.O. ( is primary informant because patient is in respiratory distress) Limited: other (Altered level of conscious concern for CO2 retention) Onset/Context/Timing Onset: Days Context: gradual Timing: Continuous Quality: Positive for Dyspnea on exertion and Wheezing; Negative for Orthopnea or PND Current Severity: Severe Maximum Severity: Severe Worsened by: Exertion and Lying flat Relieved by: Nothing and - (Increased oxygen from baseline of 2 L by nasal cannula to 4) Associated Symptoms cough; Negative for rhinorrhea, post nasal drip, ear pain, fever, sore throat, subjective, chills or sweats Chest Pain: Positive for None Narrative Narrative: Patient is a 51-year-old male with history of congestive heart failure, stage IV COPD on continuous oxygen at 2 L via nasal cannula, obstructive sleep apnea on BiPAP at night who presents because of increased shortness of breath. was concerned because his level consciousness decreased and he is having myoclonic jerks. She states when this is happened before his CO2 was elevated. He speaks in one-word sentences. Most questions were answered so that he may nod yes or no. He does have a cough. Cough is nonproductive. He denies orthopnea. Denies PND. He denies chest discomfort. He saw his plain clothes police officer Dr. Alpesh Zheng the past week. His plain clothes police officer is Dr. Tay Benavides. He does have history of PAD according to and his toes are normally discolored. He also has chronic lymphedema of his lower extremities. PE Risk Factors: Negative for Cancer, OCP + Smoking + > 35, Prior DVT or PE, Recent immobilization, Recent surgery or Recent travel Prior similar symptoms: Yes (COPD or CHF) Recent Illness/Hospitalization: No PFSH PFSH Medical History Acute respiratory failure with hypoxia and hypercapnia Anxiety BiPAP (biphasic positive airway pressure) dependence Blood disorder Cardiology follow-up encounter Chronic hypoxemic respiratory failure Closed fracture dislocation of joint of left lower extremity Closed fracture of left tibial plateau Congestive heart failure (CHF) COPD (chronic obstructive pulmonary disease) Depression Former smoker History of echocardiogram History of edema History of pain when walking HTN (hypertension) Hypertension Incarcerated umbilical hernia Obesities, morbid On home oxygen therapy LAYLA (obstructive sleep apnea) Other specified injury of left quadriceps muscle, fascia and tendon, initial encounter Pneumonia Pulmonary HTN Seasonal allergies Stage 4 very severe COPD by GOLD classification Stage 4 very severe COPD by GOLD classification Tobacco dependence Uses wheelchair Home Medications spironolactone 25 mg tablet 25 mg PO BID bp 12/02/15 [History Last Taken 11/08/21 05:00] guaifenesin 1,200 mg tablet, extended release 12 hr 1,200 mg PO Q12H PRN Cough 09/13/18 [History Last Taken 11/02/21] metoprolol succinate 50 mg tablet,extended release 24 hr 50 mg PO DAILY Heart 09/13/18 [History Last Taken 11/08/21 05:00] aspirin 81 mg tablet 81 mg PO DAILY Check with primary doctor 06/10/21 [History Last Taken 11/04/21] bupropion HCl 150 mg 24 hr tablet, extended release (Wellbutrin XL) 150 mg PO BID Check with primary doctor 10/11/21 [History Last Taken 11/08/21 05:00] fluticasone propionate 50 mcg/actuation nasal spray,suspension 2 spray intranasal DAILY CONGESTION 10/11/21 [History Last Taken 11/08/21 05:00] oxycodone 10 mg tablet 10 mg PO Q6H PRN pain 5 days #20 tabs 10/13/21 [Rx Last Taken 11/06/21] ipratropium 0.5 mg-albuterol 3 mg (2.5 mg base)/3 mL nebulization soln 3 ml inhalation Q6HWA.RT shortness of breath #180 vials 10/25/21 [Rx Last Taken 11/08/21 05:00] acetaminophen 500 mg tablet 1,000 mg PO Q6H PRN Pain 11/04/21 [History Last Taken 11/07/21 20:00] apixaban 5 mg tablet (Eliquis) 5 mg PO BID BLOOD THINNER 11/08/21 [History Last Taken 11/06/21] budesonide-formoterol HFA 160 mcg-4.5 mcg/actuation aerosol inhaler (Symbicort) 2 puff inhalation BID BREATHING 11/08/21 [History Last Taken 11/08/21 05:00] cholecalciferol (vitamin D3) 125 mcg (5,000 unit) disintegrating tablet 5,000 unit PO DAILY SUPPLEMENT 11/08/21 [History Last Taken 11/08/21 05:00] cyanocobalamin (vitamin B-12) 500 mcg tablet 500 mcg PO DAILY SUPPLEMENT 11/08/21 [History Last Taken 11/08/21 05:00] oxycodone 10 mg tablet 10 mg PO Q4H PRN pain 7 days #42 tabs 11/08/21 [Rx Last Taken Unknown] PEP device #1 ea 01/23/22 [Rx Last Taken Unknown] benzonatate 200 mg capsule 200 mg PO TID PRN cough #90 caps 01/23/22 [Rx Last Taken Unknown] ropinirole 0.5 mg tablet 0.5 mg PO QHS 01/23/22 [History Last Taken Unknown] sertraline 100 mg tablet 100 mg PO DAILY 01/23/22 [History Last Taken Unknown] albuterol sulfate 2.5 mg/3 mL (0.083 %) solution for nebulization 2.5 mg (3 mL) inhalation Q4H PRN shortness of breath or wheezing #360 mL 04/20/22 [Rx Last Taken Unknown] ipratropium 0.5 mg-albuterol 3 mg (2.5 mg base)/3 mL nebulization soln 3 ml inhalation Q4H PRN Wheezing #360 mL 04/20/22 [Rx Last Taken Unknown] furosemide 40 mg tablet 40 mg PO DAILY 05/23/22 [History Last Taken Unknown] levofloxacin 750 mg tablet 750 mg PO DAILY #7 tabs 05/23/22 [Rx Last Taken Unknown] montelukast 10 mg tablet (Singulair) 10 mg PO QPM COPD #30 tabs 06/30/22 [Rx Last Taken Unknown] loratadine 10 mg tablet 10 mg PO DAILY allergies #90 tabs 07/10/22 [Rx Last Taken Unknown] mepolizumab 100 mg/mL subcutaneous auto-injector (Nucala) 300 mg (3 mL) subcut Q4W #1 mL 07/10/22 [Rx Last Taken Unknown] albuterol sulfate 90 mcg/actuation aerosol inhaler (Ventolin HFA) 2 puff inhalation Q4H PRN shortness of breath or wheezing #18 grams 09/08/22 [Rx Last Taken Unknown] Allergy/AdvReac Type Severity Reaction Status Date / Time clarithromycin [From Biaxin] Allergy Hives Verified 11/05/22 18:17 Penicillins Allergy Hives Verified 11/05/22 18:17 Family History Mother Diabetes Breast cancer Heart disease Hypertension COPD (chronic obstructive pulmonary disease) Asthma Father Hypertension CVA (cerebral vascular accident) Surgical History History of hernia repair (~08/2018) History of tonsillectomy History of tooth extraction Hx of cardiac cath Social History (Updated 11/05/22 @ 18:[address] Bertin Jaramillo MD) household members: spouse Smoking Status: Former smoker how long ago did patient quit smokin months ago second hand exposure: Yes quit status: has quit before alcohol intake: never substance use type: does not use ROS ROS ED Review of Systems ROS Unobtainable: due to mental status and other Details: Respiratory distress Constitutional Constitutional ED: Reports other Details: Weight gain per patient ; Denies chills, fever(s) or sweats Eyes Eyes: Denies blurry vision or change in vision ENT ENT ED: Denies ear pain, rhinorrhea or sore throat Cardiovascular Cardiovascular: Reports palpitations; Denies chest pain, orthopnea or paroxysmal nocturnal dyspnea Respiratory/Chest Respiratory/Chest: Reports cough, dyspnea and dyspnea on exertion; Denies orthopnea or paroxysmal nocturnal dyspnea Gastrointestinal Gastrointestinal: Denies abdominal pain, nausea or vomiting Musculoskeletal Musculoskeletal: Denies arthralgias or myalgias Integumentary Reports rash and other Details: Venous stasis dermatitis, chronic Hematologic/Lymphatic Hematologic/Lymphatic: Denies easy bleeding or easy bruising EXAM Physical Exam Const Vital Signs: 11/05/22 18:18 11/05/22 18:20 11/05/22 18:23 Temperature 99 F Temperature Source Temporal Pulse Rate 102 H Respiratory Rate 17 Respiratory Effort Short of Breath Labored Accessory Muscle Use Nasal [place] Respiratory Depth Deep Blood Pressure 190/119 H Blood Pressure Mean 142 Pulse Ox 84 Oxygen Delivery Method Nasal Cannula Oxygen Flow Rate (L/min) 6 Fraction of Inspired Oxygen (FIO2) 11/05/22 18:27 11/05/22 18:20 11/05/22 18:49 Temperature Temperature Source Pulse Rate 99 95 Respiratory Rate 17 18 Respiratory Effort Respiratory Depth Blood Pressure Blood Pressure Mean Pulse Ox 95 93 92 Oxygen Delivery Method CPAP Oxygen Flow Rate (L/min) Fraction of Inspired Oxygen (FIO2) 50 40 11/05/22 19:33 11/05/22 19:26 11/05/22 19:51 Temperature Temperature Source Pulse Rate 97 72 Respiratory Rate 22 H 18 Respiratory Effort Respiratory Depth Blood Pressure 191/107 H Blood Pressure Mean 135 Pulse Ox 88 90 Oxygen Delivery Method Bi-pap Bi-pap Oxygen Flow Rate (L/min) Fraction of Inspired Oxygen (FIO2) 40 40 11/05/22 19:52 Temperature Temperature Source Pulse Rate 98 Respiratory Rate 22 H Respiratory Effort Respiratory Depth Blood Pressure Blood Pressure Mean Pulse Ox 90 Oxygen Delivery Method Oxygen Flow Rate (L/min) Fraction of Inspired Oxygen (FIO2) 40 Positive well nourished, well developed and obese; Negative for cachectic, contractures or unkempt Constitutional Narrative: Patient has a depressed level consciousness. He has delayed capillary refill 3 seconds upper extremity 4+ seconds lower extremity exam. His feet and toes are cyanotic. There is no acral cyanosis of his hands. General Appearance ED: well developed; Negative for unkempt, cachectic, contractures, NAD or pallor Nutritional Appearance: obese; Negative for cachectic HEENT Reports dry mucous membranes HEENT Narrative: Ears normal. Nares patent. Uvula midline. No deviation of protrusion. No erythema exudate posterior pharynx. atraumatic Mouth ED: Yes dry mucous membranes Mouth: dry mucous membranes Eyes PERRL and EOMs intact bilaterally General Eye ED: Negative for pale conjunctiva or scleral icterus Neck no lymphadenopathy, supple, no meningeal signs and no JVD Neck Narrative: Trachea is midline. There is no inspiratory ex stridor. Resp No normal respiratory effort and No clear to auscultation bilaterally Resp Narrative: Diminished breath sounds bilaterally with faint bilateral rales lower lung ring. No wheezing or rhonchi was appreciated. Cardio regular rhythm, S1 normal heart sound, S2 normal heart sound and no murmurs Rate: tachycardic GI non-tender, non-distended and no masses Auscultation: hypoactive bowel sounds Palpation: soft Back/Spine no CVA tenderness Neuro CN's II-XII intact bilaterally and no sensory deficits noted [place] Coma Scale: document GCS findings Spontaneous Obeys Commands Oriented 15 Sensorium / Orientation: oriented to person, oriented to place and oriented to time; Negative for alert Speech: speech normal Psych Appearance: Negative for unkempt Mood & Affect: Negative for depressed or anxious Thought Process: normal thought process Skin no wounds and skin turgor normal Skin Narrative: Acral cyanosis, delayed capillary refill upper and lower extremity. There is evidence of venous stasis dermatitis lower extremities. General Skin Exam: Negative for jaundice or pallor Sepsis Attestation Date exam was performed: 11/05/22 Time exam was performed: 18:21 Possible Source of Sepsis: Pulmonary Sepsis Organ Dysfunction Criteria Present: Acute Respiratory Failure (New need for BiPAP/CPAP or MV) and PaO2/FiO2 ratio < 300 Fluid Resuscitation Reason for lesser fluid bolus:: Other (SepticPatient does not have shock therefore IV fluids were not administered. And there is also concern the patient has mild heart failure.) MDM MDM MDM Narrative Medical decision making narrative: Concern patient has exacerbation of his congestive heart failure in light of weight gain, increased edema and rales noted on auscultation. Also need to consider exacerbated COPD since there is very little air movement with increased expiratory phase. Will obtain chest x-ray to assess for pneumonia, pneumothorax versus congestive heart failure. Patient was placed on BiPAP because of concern for hypercapnia. ABG was obtained for the same reason. CBC to assess white count rule out anemia. Poor perfusion could be due to hypoxia versus cardiac etiology. If there is no evidence of congestive heart failure on x-ray will administer fluid bolus. Patient was tested for COVID and influenza as well. Blood pressure is elevated this may be due to his respiratory distress. Will monitor. Respiratory rate is greater than 17. Troponin and BNP were obtained t o evaluate for cardiac ischemia and to support diagnosis of congestive heart failure. Patient was reassessed at 1843. Patient is still somnolent. He does respond to verbal questions appropriately. Plan is to wean his oxygen level as long as his pulse ox is above 90 percent. Lab Data Attestation: I reviewed the patient's lab results. Lab results narrative: White count is Elave at 15.0 thousand with shift. There is no bandemia. Lactate is normal at 0.6 BNP is normal at 91.8. Since patient does have a small infiltrate noted of the right lower lobe with negative COVID and influenza rapid test we will treat with IV antibiotics for community-acquired pneumonia. Labs: Laboratory Results - last 24 hr 11/05/22 11/05/22 11/05/22 18:20 18:20 18:20 WBC 15.0 H RBC 5.21 Hgb 16.7 H Hct 56.2 H MCV 107.9 H MCH 32.1 H MCHC 29.7 L RDW Std Deviation 54.0 H RDW Coeff of Valerie 13.3 Plt Count 220 MPV 10.2 Immature Gran % (Auto) 0.500 Neut % (Auto) 78.3 H Lymph % (Auto) 12.6 L [place] % (Auto) 7.8 Eos % (Auto) 0.3 Baso % (Auto) 0.5 Absolute Neuts (auto) 11.7 H Absolute Lymphs (auto) 1.89 Nucleated RBC % 0 PT Cancelled INR Cancelled APTT Cancelled Sodium 134 L Potassium 4.7 Chloride 87 L Carbon Dioxide > 45.0 H* Anion Gap TNP BUN 13 Creatinine 0.77 Estim Creat Clear Calc 121.77 Est GFR (MDRD) Af Amer 136 Est GFR (MDRD) Non-Af 112 BUN/Creatinine Ratio 16.9 Glucose 123 H Lactic Acid Calcium 9.0 Troponin I High Sens 18 B-Natriuretic Peptide 11/05/22 11/05/22 11/05/22 18:20 18:20 19:18 WBC RBC Hgb Hct MCV MCH MCHC RDW Std Deviation RDW Coeff of Valerie Plt Count MPV Immature Gran % (Auto) Neut % (Auto) Lymph % (Auto) [place] % (Auto) Eos % (Auto) Baso % (Auto) Absolute Neuts (auto) Absolute Lymphs (auto) Nucleated RBC % PT 13.2 INR 1.0 APTT 31.2 Sodium Potassium Chloride Carbon Dioxide Anion Gap BUN Creatinine Estim Creat Clear Calc Est GFR (MDRD) Af Amer Est GFR (MDRD) Non-Af BUN/Creatinine Ratio Glucose Lactic Acid 0.6 Calcium Troponin I High Sens B-Natriuretic Peptide 91.8 Arterial blood gas on short period of BiPAP reveals a respiratory acidosis with acute on chronic CO2 retention and acute on chronic hypoxemia. Patient has significant AA gradient. pH is 7.19, CO2 is greater than 137, PO2 is 86. Apparently bicarb and base excess could not be calculated. ABG Data ABG results: ABG 11/05/22 18:34 Specimen Type ART Sample Site R Radial pH 7.19 L* Bicarbonate Actual TNP Total CO2 TNP Base Excess TNP O2 Saturation TNP O2 % 50 ABG pCO2 > 137.0 H* ABG pO2 86 Tal Test Positive Crit Call To/Read Back Yes Blood Gas Notified Whom JARAMILLO Clinical Comments BIPAP 14/11 Radiography Chest X-Ray - ED: 1 View and Read by ED Physician (Independently reviewed and interpreted by me at 1859. 2 portable views were taken. The second portable view suggest there is an early right lower lobe infiltrate. There may be slight cephalization. There are no curly B-lines. Cardiac size is borderline cardiomegaly. Cardiac border is well-defi) Diagnostic Testing: Clinical Impression(s) from Imaging Studies Chest X-Ray 11/05/22 18:50 IMPRESSION: Poor inspiration with some bibasilar atelectasis. Electronically Signed: Edgard Lozada MD at 19:05 EST , EKG Initial EKG: Attestation: I personally reviewed and interpreted this EKG as follows: Interpretation: Sinus Tachycardia (With a ventricular rate 102 and evidence of right bundle branch block. NV intervals on a 56 ms. QS duration of 26 ms. QT duration 3 and 50 ms. [place] to the right. There is no evidence of acute ischemic changes. There are repolarization changes noted due to the right bundle branch block.) Critical Care Time Critical Care Time: Yes Critical care time (excluding procedures): 30-74 minutes (37), Including time spent: (History, physical, documentation, review of prior records, interpretation of laboratory results and radiologic images.), Discussing w/Patient &/or Family/Double Needle Operator, Discussing w/Consultants, Arranging Admission or Transfer and Performing Direct Patient Care at Bedside Discharge Plan Dx/Rx/DC Orders Clinical Impression: Acute and chronic respiratory failure with hypercapnia, Pulmonary hypertension, Acute exacerbation of chronic obstructive pulmonary disease, Infiltrate of lower lobe of right lung present on imaging study, History of primary hypertension, Congestive heart failure Disposition Disposition: [facility]
[2022-11-05 18:42] LABS: Absolute Lymphocyte Count 1.89 X10^3/uL (0.83-4.51); Absolute Neutrophil Count 11.7 X10^3/uL (2.0-7.7); Basophil# 0.08 X10^3/uL; Basophil% 0.5 % (0-1); Eosinophil# 0.04 X10^3/uL; Eosinophils% 0.3 % (0-5); Hemoglobin 16.7 g/dL (13.0-16.5); Lymphocyte # 1.89 X10^3/ul (0.83-4.51); Lymphocyte % 12.6 % (19-41); Mean Corp Hgb Conc 29.7 g/dL (32-36); Mean Corpuscular Hgb 32.1 pg (27.0-32.0); Mean Corpuscular Volume 107.9 fL (80-94); Mean Platelet Vol. 10.2 fl (6.2-12.0); Monocyte# 1.17 X10^3/uL; Monocyte% 7.8 % (0-10); NRBC Flagged by Analyzer 0 % (0-5); Neutrophil # 11.72 X10^3/uL (2.7-7.7); Neutrophil % 78.3 % (47-70); Platelet Count 220 K/mm3 (150-450); RBC Distribution Width CV 13.3 % (11.6-14.6); Red Blood Count 5.21 M/mm3 (4.6-6.2)
[2022-11-05 18:50] LABS: Hematocrit 56.2 % (40-54)
[2022-11-05 18:50] LABS: Allen Test Positive; Blood Gas Specimen Type ART; FI02 50; PO2 86 mmHG (75-100); SITE R Radial; pH 7.19 (7.35-7.45)
--- NOTE | 2022-11-05 18:50 | RAD_ITS ---
STUDY: X-RAY CHEST REASON FOR EXAM: Male, 51 years old. Respiratory failure TECHNIQUE: Single AP portable view of the chest. COMPARISON: 06/10/2021 FINDINGS: Poor inspiration with some bibasilar atelectasis. There is no demonstrated pleural abnormality. There is moderate cardiac enlargement. Normal mediastinum and lani. Normal visualized pulmonary arteries. Normal visualized aortic arch and descending thoracic aorta. Normal visualized thoracic spine. Normal visualized ribs, clavicles, and shoulders. There is no demonstrated abnormality of the visualized soft tissue structures of the upper abdomen. RAD/Chest 1 View (Portable) IMPRESSION: Poor inspiration with some bibasilar atelectasis. Electronically Signed: Edgard Lozada MD at 19:05 EST ,
[2022-11-05 18:53] LABS: pCO2 > 137.0 mmHg (35-45)
[2022-11-05 19:00] LABS: Lactic Acid 0.6 mmol/L (0.4-1.9)
[2022-11-05 19:04] LABS: BNP,B-Type NATRIURETIC PEPTIDE 91.8 pg/mL (0-100)
[2022-11-05] MEDS: Furosemide 40 MG/4 ML Vial IV (19:11)
[2022-11-05 19:20] LABS: BUN 13 mg/dL (7-18); BUN/Creat Ratio 16.9 RATIO (10-20); Carbon Dioxide > 45.0 mmol/L (21.0-32.0); Chloride 87 mmol/L (98-107); Creatinine, Serum 0.77 mg/dL (0.70-1.30); EST Glomerular Filtration Rate 112 mL/min (>60); Est Glom Filt Rate - Afr Amer 136 mL/min (>60); Estimated Creatinine Clearance 121.77 ml/min; Glucose 123 mg/dL (74-106); Potassium 4.7 mmol/L (3.5-5.1); Sodium Level 134 mmol/L (136-145); Troponin-I HS 18 pg/mL (3.0-78.0)
[2022-11-05] MEDS: Ipratropium/Albuterol Sulfate 3 ML AMPUL.NEB INHALATION ×2 (19:22→22:50)
[2022-11-05] MEDS: Albuterol 2.5 MG/3 ML VIAL.NEB. INHALATION ×3 (19:22)
[2022-11-05] MEDS: levoFLOXacin IV 750 MG/150 ML BAG 100 MG IV (19:30)
[2022-11-05 19:32] LABS: Prothrombin Time (Protime)PT. 13.2 SECONDS (11.7-14.9)
[2022-11-05 19:33] LABS: Partial Thromboplast Time 31.2 Seconds (24.1-36.2)
--- NOTE | 2022-11-05 20:15 | HP.PCM.HOS_ITS ---
[facility] - General General Date of Admission: 11/05/22 Date of Service: 11/05/22 Chief Complaint: Shortness of breath HPI Narrative HARJIT ALBERTS, is a 51 M with a significant history of stage IV COPD; chronic diastolic heart failure; obstructive sleep apnea on home CPAP/BiPAP; 24 hours nasal cannula oxygen use; and bilateral lower extremity edema who presents to the emergency department with 2-day history of progressive worsening shortness of breath. Reportedly patient's home oxygen was changed from 2 L to 4 L at home to help him breathe better. reported that with increasing his oxygen flow she thinks that patient was retaining carbon dioxide as patient was twitching. Majority of history was taken from patient's who was at the bedside. Patient was on BiPAP and could not provide much history. Patient denies any chills or fever. Patient's thinks patient might have gained some weight. However she is unable to specify how much weight patient might of gained. reports a puffiness of patient's face. Recently patient was started on torsemide by his assistant track and field coach. Reportedly his assistant track and field coach is at [place], [place]. Patient has chronic leg edema from injury that has no change. reports that the edema in his right leg has not change. Patient reports wheezing. [facility] Medical History Acute respiratory failure with hypoxia and hypercapnia Anxiety BiPAP (biphasic positive airway pressure) dependence Blood disorder Cardiology follow-up encounter Chronic hypoxemic respiratory failure Closed fracture dislocation of joint of left lower extremity Closed fracture of left tibial plateau Congestive heart failure (CHF) COPD (chronic obstructive pulmonary disease) Depression Former smoker History of echocardiogram History of edema History of pain when walking HTN (hypertension) Hypertension Incarcerated umbilical hernia Obesities, morbid On home oxygen therapy LAYLA (obstructive sleep apnea) Other specified injury of left quadriceps muscle, fascia and tendon, initial encounter Pneumonia Pulmonary HTN Seasonal allergies Stage 4 very severe COPD by GOLD classification Stage 4 very severe COPD by GOLD classification Tobacco dependence Uses wheelchair Home Medications spironolactone 25 mg tablet 25 mg PO BID bp 12/02/15 [History Last Taken 05:00] guaifenesin 1,200 mg tablet, extended release 12 hr 1,200 mg PO Q12H PRN Cough 09/13/18 [History Last Taken 11/02/21] metoprolol succinate 50 mg tablet,extended release 24 hr 50 mg PO DAILY Heart 09/13/18 [History Last Taken 11/08/21 05:00] aspirin 81 mg tablet 81 mg PO DAILY Check with primary doctor 06/10/21 [History Last Taken 11/04/21] bupropion HCl 150 mg 24 hr tablet, extended release (Wellbutrin XL) 150 mg PO BID Check with primary doctor 10/11/21 [History Last Taken 11/08/21 05:00] acetaminophen 500 mg tablet 1,000 mg PO Q6H PRN Pain 11/04/21 [History Last Taken 11/07/21 20:00] budesonide-formoterol HFA 160 mcg-4.5 mcg/actuation aerosol inhaler (Symbicort) 2 puff inhalation BID BREATHING 11/08/21 [History Last Taken 11/08/21 05:00] cholecalciferol (vitamin D3) 125 mcg (5,000 unit) disintegrating tablet 5,000 unit PO DAILY SUPPLEMENT 11/08/21 [History Last Taken 11/08/21 05:00] cyanocobalamin (vitamin B-12) 500 mcg tablet 500 mcg PO DAILY SUPPLEMENT 11/08/21 [History Last Taken 11/08/21 05:00] PEP device #1 ea 01/23/22 [Rx Last Taken Unknown] sertraline 100 mg tablet 100 mg PO DAILY Check with primary doctor 01/23/22 [History Last Taken Unknown] albuterol sulfate 2.5 mg/3 mL (0.083 %) solution for nebulization 2.5 mg (3 mL) inhalation Q4H PRN shortness of breath or wheezing #360 mL 04/20/22 [Rx Last Taken Unknown] ipratropium 0.5 mg-albuterol 3 mg (2.5 mg base)/3 mL nebulization soln 3 ml inhalation Q4H PRN Wheezing #360 mL 04/20/22 [Rx Last Taken Unknown] furosemide 40 mg tablet 40 mg PO DAILY Check with primary doctor 05/23/22 [History Last Taken Unknown] montelukast 10 mg tablet (Singulair) 10 mg PO QPM COPD #30 tabs 06/30/22 [Rx Last Taken Unknown] albuterol sulfate 90 mcg/actuation aerosol inhaler (Ventolin HFA) 2 puff inhalation Q4H PRN shortness of breath or wheezing #18 grams 09/08/22 [Rx Last Taken Unknown] Demadex 20 mg PO/SL DAILY Check with primary doctor 11/05/22 [History Last Taken Unknown] mepolizumab 100 mg/mL subcutaneous auto-injector (Nucala) 300 mg subcut Q4W Check with primary doctor 11/05/22 [History Last Taken Unknown] Allergy/AdvReac Type Severity Reaction Status Date / Time clarithromycin [From Biaxin] Allergy Hives Verified 11/05/22 18:17 Penicillins Allergy Hives Verified 11/05/22 18:17 Family History Mother Diabetes Breast cancer Heart disease Hypertension COPD (chronic obstructive pulmonary disease) Asthma Father Hypertension CVA (cerebral vascular accident) Surgical History History of hernia repair (~08/2018) History of tonsillectomy History of tooth extraction Hx of cardiac cath Social History household members: spouse Smoking Status: Former smoker how long ago did patient quit smokin months ago second hand exposure: Yes quit status: has quit before alcohol intake: never substance use type: does not use ROS ROS Narrative Pertinent positives and pertinent negatives as noted in HPI. All other systems were reviewed and are negative Vital Signs Vital Signs Vital Signs: 11/05/22 18:18 11/05/22 18:20 11/05/22 18:23 Temperature 99 F Temperature Source Temporal Pulse Rate 102 H Respiratory Rate 17 Respiratory Effort Short of Breath Labored Accessory Muscle Use Nasal Flaring Head [place]bing Respiratory Depth Deep Blood Pressure 190/119 H Blood Pressure Mean 142 Pulse Ox 84 Oxygen Delivery Method Nasal Cannula Oxygen Flow Rate (L/min) 6 Fraction of Inspired Oxygen (FIO2) 11/05/22 18:27 11/05/22 18:20 11/05/22 18:49 Temperature Temperature Source Pulse Rate 99 95 Respiratory Rate 17 18 Respiratory Effort Respiratory Depth Blood Pressure Blood Pressure Mean Pulse Ox 95 93 92 Oxygen Delivery Method CPAP Oxygen Flow Rate (L/min) Fraction of Inspired Oxygen (FIO2) 50 40 11/05/22 19:33 11/05/22 19:26 11/05/22 19:51 Temperature Temperature Source Pulse Rate 97 72 Respiratory Rate 22 H 18 Respiratory Effort Respiratory Depth Blood Pressure 191/107 H Blood Pressure Mean 135 Pulse Ox 88 90 Oxygen Delivery Method Bi-pap Bi-pap Oxygen Flow Rate (L/min) Fraction of Inspired Oxygen (FIO2) 40 40 11/05/22 19:52 Temperature Temperature Source Pulse Rate 98 Respiratory Rate 22 H Respiratory Effort Respiratory Depth Blood Pressure Blood Pressure Mean Pulse Ox 90 Oxygen Delivery Method Oxygen Flow Rate (L/min) Fraction of Inspired Oxygen (FIO2) 40 Weight Weight: 159.6 kg Body Mass Index (BMI) 47.7 Physical Exam Narrative Physical exam: General: Well-nourished, well-developed. Head: Normocephalic, atraumatic, no tenderness Eyes: Vision is grossly intact. EOMI ENT, no trauma, no rhinorrhea Neck: Nontender, No thyromegaly. CVS: Regular rate and rhythm. S1-S2 present. No murmur, gallop or rub. Respiratory : On BiPAP; tachypnea; diminished. Abdomen: Soft, nontender, nondistended, normal bowel sounds, no masses : Deferred Back: Nontender, no CVA tenderness, no midline spinal tenderness, deformities, step-offs Extremities: Bilateral lower extremity edema left worse than right. Mildly cyanotic bilateral legs Skin: Normal color, no trauma, abrasions Neuro: Alert, oriented, cranial nerves II through XII grossly intact. Psychiatry: Normal mood. Normal affect. Not depressed. Not anxious. Results Lab / Micro Data Result Diagrams: 11/05/22 18:20 11/05/22 18:20 Labs: Laboratory Results - last 24 hr 11/05/22 18:20: WBC 15.0 H, RBC 5.21, Hgb 16.7 H, Hct 56.2 H, MCV 107.9 H, MCH 32.1 H, MCHC 29.7 L, RDW Std Deviation 54.0 H, RDW Coeff of Valerie 13.3, Plt Count 220, MPV 10.2, Immature Gran % (Auto) 0.500, Neut % (Auto) 78.3 H, Lymph % (Auto) 12.6 L, Williamson % (Auto) 7.8, Eos % (Auto) 0.3, Baso % (Auto) 0.5, Absolute Neuts (auto) 11.7 H, Absolute Lymphs (auto) 1.89, Nucleated RBC % 0 11/05/22 18:20: PT Cancelled, INR Cancelled, APTT Cancelled 11/05/22 18:20: Sodium 134 L, Potassium 4.7, Chloride 87 L, Carbon Dioxide > 45.0 H*, Anion Gap TNP, BUN 13, Creatinine 0.77, Estim Creat Clear Calc 121.77, Est GFR (MDRD) Af Amer 136, Est GFR (MDRD) Non-Af 112, BUN/Creatinine Ratio 16.9, Glucose 123 H, Calcium 9.0, Troponin I High Sens 18 11/05/22 18:20: Lactic Acid 0.6 11/05/22 18:20: B-Natriuretic Peptide 91.8 11/05/22 19:18: PT 13.2, INR 1.0, APTT 31.2 Micro: Microbiology 11/05/22 18:25 Nasal Secretion SARS-CoV-2 & FLU Antigen (Rapid) - Final ABG Data ABG results: ABG 11/05/22 18:34 Specimen Type ART Sample Site R Radial pH 7.19 L* Bicarbonate Actual TNP Total CO2 TNP Base Excess TNP O2 Saturation TNP O2 % 50 ABG pCO2 > 137.0 H* ABG pO2 86 Tal Test Positive Crit Call To/Read Back Yes Blood Gas Notified Whom JARAMILLO Clinical Comments BIPAP 14/11 Radiology Impression Chest X-Ray 11/05/22 18:50 IMPRESSION: Poor inspiration with some bibasilar atelectasis. Electronically Signed: Harjit Lozada MD at 19:05 EST , Assessment & Plan Assessment/Plan (1) Sepsis: (2) Pneumonia: (3) Acute and chronic respiratory failure with hypercapnia: (4) Bilateral lower extremity edema: (5) Acute exacerbation of chronic obstructive pulmonary disease: (6) Acute and chronic respiratory failure with hypoxia: (7) Obesity hypoventilation syndrome: PLAN: Plan The patient presented with sepsis due to (possibly) with acute sepsis related organ dysfunction as evidenced by (acute respiratory failure). SIRS criteria: Temperature more than 100.9 Fahrenheit or less than 96.8 Fahrenheit Respiratory rate more than 20 Heart rate more than 90 WBC more than 12,000. His white count on presentation was 15,000. Trend CBC Chest x-ray interpreted by radiologist as poor inspiration with some bibasilar atelectasis. Chest x-ray per my visualization and independent interpretation, rule out infiltrates. With patient's symptomatology and leukocytosis will treat as pneumonia. Patient allergic to penicillins. Started Levaquin at the emergency department and continued. We will add azithromycin. organ dysfunction: Lactic acid is 0.6. Acute on chronic respiratory failure with hypercapnia and hypoxia On baseline oxygen of 2 L. At the emergency department patient required BiPAP. On presentation at the emergency department on 6 L patient oxygen saturation was 84%. ABG was obtained reportedly on BiPAP at 50% FiO2. pH of 7.19; PCO2 of more than 137. BiPAP started emergency department and continued. Consult pulmonology. Acute exacerbation of COPD /Obesity Hypoventilation Syndrome Steroids around the clock ordered. BiPAP ordered. Bilateral lower extremity edema Patient follows up with assistant track and field coach at outside hospital. Last echocardiogram o n file on 04/13/2021. Echocardiogram at that time showed stage II diastolic dysfunction. BNP on presentation was 91.8. Doubt whether patient is in heart failure. Recently started on torsemide at [facility] 20 mg daily. Received Lasix IV push in the emergency department. Lasix 40 mg IV push twice daily ordered. Fluid restriction. González wrap to bilateral legs. DVT Prophylaxis Subcutaneous Lovenox ordered. Charges/Coding Visit Charges Inpatient E&M: 71142 Init Hosp L3
[2022-11-05 21:11] LABS: Bedside Glucose 145 mg/dL (74-106)
[2022-11-05 22:38] LABS: Procalcitonin 0.04 ng/mL (0.00-0.09)
[2022-11-05] MEDS: hydrALAZINE 20 MG/ML Vial 10 MG IV (22:56)
[2022-11-05] MEDS: 0.9% Saline Lock 10 ML Syringe IV (22:56)
[2022-11-05 23:51] LABS: Blood Gas Specimen Type ART
[2022-11-05 23:52] LABS: Allen Test POS; SITE L RADIAL
[2022-11-05 23:55] LABS: FI02 40; O2 Delivery Device AVAPS; RR 12; Vt 450
[2022-11-05 23:56] LABS: EPAP 12
[2022-11-05 23:58] LABS: Time Given 2140
[2022-11-06] VITALS (25 sets, daily range): BP systolic 133–178; BP diastolic 70–117; PULSE 86–126; RESP 12–24; TEMP 36.2–36.9; O2SAT 90–97
[2022-11-06 00:01] LABS: Base Excess 30 mmol/L (-2 to +2); Bicarbonate 57.2 mmol/L (22-26); PO2 87 mmHG (75-100); pCO2 129.9 mmHg (35-45); pH 7.25 (7.35-7.45)
[2022-11-06 00:02] LABS: SO2 93 % (95-99); Total Carbon Dioxide > 50 mmol/L
[2022-11-06] MEDS: hydrALAZINE 20 MG/ML Vial 10 MG IV ×2 (02:53→06:22)
[2022-11-06] MEDS: Acetaminophen 325 MG Tablet 650 MG PO (06:22)
[2022-11-06] MEDS: Ipratropium/Albuterol Sulfate 3 ML AMPUL.NEB INHALATION ×4 (06:41→20:12)
[2022-11-06 06:55] LABS: Absolute Lymphocyte Count 0.85 X10^3/uL (0.83-4.51); Absolute Neutrophil Count 11.8 X10^3/uL (2.0-7.7); Basophil# 0.03 X10^3/uL; Basophil% 0.2 % (0-1); Hemoglobin 16.4 g/dL (13.0-16.5); Lymphocyte # 0.85 X10^3/ul (0.83-4.51); Lymphocyte % 6.5 % (19-41); Mean Corp Hgb Conc 29.8 g/dL (32-36); Mean Corpuscular Hgb 32.3 pg (27.0-32.0); Mean Corpuscular Volume 108.5 fL (80-94); Mean Platelet Vol. 10.9 fl (6.2-12.0); Monocyte# 0.35 X10^3/uL; Monocyte% 2.7 % (0-10); NRBC Flagged by Analyzer 0 % (0-5); Neutrophil # 11.77 X10^3/uL (2.7-7.7); Neutrophil % 89.5 % (47-70); Platelet Count 177 K/mm3 (150-450); RBC Distribution Width CV 13.4 % (11.6-14.6); RBC Distribution Width SD 54.4 fl (35.1-43.9); Red Blood Count 5.07 M/mm3 (4.6-6.2); White Blood Count 13.1 K/mm3 (4.4-11.0)
[2022-11-06 07:57] LABS: BUN 12 mg/dL (7-18); BUN/Creat Ratio 22.9 RATIO (10-20); Carbon Dioxide > 45.0 mmol/L (21.0-32.0); Chloride 85 mmol/L (98-107); Creatinine, Serum 0.52 mg/dL (0.70-1.30); EST Glomerular Filtration Rate 175 mL/min (>60); Est Glom Filt Rate - Afr Amer 212 mL/min (>60); Estimated Creatinine Clearance 180.32 ml/min; Glucose 131 mg/dL (74-106); Potassium 4.4 mmol/L (3.5-5.1); Sodium Level 132 mmol/L (136-145)
--- NOTE | 2022-11-06 08:15 | NURSING ---
Critical CO2 result >45 called to primary RN, Katarina
--- NOTE | 2022-11-06 08:53 | PN.HOSP_ITS ---
Subjective Subjective Follow-up COPD exacerbation, suspected pulmonary infection and acute combined respiratory failure Objective Data Objective Data Vital Signs: Vital Signs Temp Pulse Resp BP Pulse Ox O2 Del Method O2 Flow Rate 98.1 F 114 H 17 178/103 H 94 Bi-pap 6 11/06/22 06:00 11/06/22 06:43 11/06/22 06:43 11/06/22 06:22 11/06/22 06:45 11/06/22 06:45 11/05/22 18:18 FiO2 45 11/06/22 06:45 Oxygen Flow Rate (L/min) 6 Oxygen Delivery Method Bi-pap Weight: 348 lb 1.758 oz Body Mass Index (BMI) 47.2 Intake & Output: Intake and Output for Last 24 Hours 11/04/22 11/05/22 11/06/22 23:59 23:59 23:59 Intake Total 250 / 250 100 / 100 Output Total 700 / 700 Balance 250 / 250 -600 / -600 Lab / Micro Data Result Diagrams: 11/06/22 05:45 11/06/22 05:45 Labs: Laboratory Results - last 24 hr 11/05/22 18:20: WBC 15.0 H, RBC 5.21, Hgb 16.7 H, Hct 56.2 H, MCV 107.9 H, MCH 32.1 H, MCHC 29.7 L, RDW Std Deviation 54.0 H, RDW Coeff of Valerie 13.3, Plt Count 220, MPV 10.2, Immature Gran % (Auto) 0.500, Neut % (Auto) 78.3 H, Lymph % (Auto) 12.6 L, Prowers % (Auto) 7.8, Eos % (Auto) 0.3, Baso % (Auto) 0.5, Absolute Neuts (auto) 11.7 H, Absolute Lymphs (auto) 1.89, Nucleated RBC % 0 11/05/22 18:20: PT Cancelled, INR Cancelled, APTT Cancelled 11/05/22 18:20: Sodium 134 L, Potassium 4.7, Chloride 87 L, Carbon Dioxide > 45.0 H*, Anion Gap TNP, BUN 13, Creatinine 0.77, Estim Creat Clear Calc 121.77, Est GFR (MDRD) Af Amer 136, Est GFR (MDRD) Non-Af 112, BUN/Creatinine Ratio 16.9, Glucose 123 H, Calcium 9.0, Troponin I High Sens 18 11/05/22 18:20: Lactic Acid 0.6 11/05/22 18:20: B-Natriuretic Peptide 91.8 11/05/22 18:20: Procalcitonin 0.04 11/05/22 18:26: POC Glucose 145 H 11/05/22 19:18: PT 13.2, INR 1.0, APTT 31.2 11/06/22 05:45: WBC 13.1 H, RBC 5.07, Hgb 16.4, Hct 55.0 H, MCV 108.5 H, MCH 32.3 H, MCHC 29.8 L, RDW Std Deviation 54.4 H, RDW Coeff of Valerie 13.4, Plt Count 177, MPV 10.9, Immature Gran % (Auto) 1.100 H, Neut % (Auto) 89.5 H, Lymph % (Auto) 6.5 L, [place] % (Auto) 2.7, Eos % (Auto) 0.0, Baso % (Auto) 0.2, Absolute Neuts (auto) 11.8 H, Absolute Lymphs (auto) 0.85, Nucleated RBC % 0 11/06/22 05:45: Sodium 132 L, Potassium 4.4, Chloride 85 L, Carbon Dioxide > 45.0 H*, Anion Gap TNP, BUN 12, Creatinine 0.52 L, Estim Creat Clear Calc 180.32, Est GFR (MDRD) Af Amer 212, Est GFR (MDRD) Non-Af 175, BUN/Creatinine Ratio 22.9 H, Glucose 131 H, Calcium 9.0 Micro: Microbiology 11/05/22 22:15 Urine, Clean Catch Legionella Antigen - Final 11/05/22 22:15 Urine, Clean Catch Streptococcus pneumoniae Antigen (M - Final 11/05/22 18:25 Nasal Secretion SARS-CoV-2 & FLU Antigen (Rapid) - Final ABG Data ABG results: ABG 11/05/22 11/05/22 18:34 21:40 Specimen Type ART ART Sample Site R Radial L RADIAL pH 7.19 L* 7.25 L Bicarbonate Actual TNP 57.2 H Total CO2 TNP > 50 Base Excess TNP 30 H O2 Saturation TNP 93 L O2 % 50 40 ABG pCO2 > 137.0 H* 129.9 H* ABG pO2 86 87 Tal Test Positive POS Respiration Rate 12 O2 Delivery Device AVAPS Inspiratory Time 0.95 Tidal Volume 450 EPAP 12 Crit Call To/Read Back Yes Yes Blood Gas Notified Whom ELLA DE GUZMAN MD Blood Gas Notified Time 2139 Clinical Comments BIPAP 14/11 High PS 28/Low PS 16 Radiography Diagnostic Testing: Radiology Impression Chest X-Ray 11/05/22 18:50 IMPRESSION: Poor inspiration with some bibasilar atelectasis. Electronically Signed: Edgard Lozada MD at 19:05 EST , Physical Exam Narrative Seen and examined. Patient blood pressure has been elevated. Legs are swollen. On BiPAP. Still short of breath. Physical exam General: Alert, Oriented x3, Cooperative HEENT: Atraumatic, PERRLA, EOMI, Normocephalic Oral: BiPAP mask. Neck: Supple, No JVD, Negative Carotid Bruits Lungs: Air entry severely diminished bilaterally. Bilateral expiratory rhonchi Cardiovascular: Sinus tachycardia, Normal S1, Normal S2, No murmurs Abdomen: Bowel Sounds Present, Soft, Non Tender, Non-Distended : No renal angle tenderness. No suprapubic tenderness. Extremities: Bilateral 3+ below-knee edema, Capillary Refill Less than 3 Seconds Skin: No rashes, No breakdown Musculoskeletal: No Tenderness to Palpation of Joints or Extremities, ROM restricted, muscle strength 4+/5 at major hip and knee joints Neurological: Cranial nerves II-XII grossly intact, DTR 2+/4 and Symmetrical Psych/Mental Status: Flat affect Assessment & Plan Assessment/Plan (1) Pneumonia: (2) Bilateral lower extremity edema: (3) Acute exacerbation of chronic obstructive pulmonary disease: (4) Obesity hypoventilation syndrome: (5) Acute on chronic respiratory failure with hypoxia and hypercapnia: PLAN: Plan Patient was admitted with severe shortness of breath, mild fever and respiratory distress consistent with acute on chronic combined respiratory failure. Patient on 2 to 3 L of home oxygen. 1. Acute on chronic combined respiratory failure probably due to COPD exacerbation/suspected pulmonary infection: Patient is being admitted in PCU. On BiPAP. Patient blood pressure was high. Lactic acid normal. Patient had fever to 100.9 Fahrenheit. Tachycardic tachypneic and leukocytosis but does not meet poor more than 2 organ dysfunction therefore sepsis ruled out. acute on chronic combined respiratory failure, acute on chronic respiratory acidosis, pH 7.19, PCO2 more than 137 on ABG. Chest x-ray was suboptimal quality shows bibasilar atelectasis. Pneumonia work-up was ordered. Patient empirically on IV antibiotics. On Levaquin. Discontinue azithromycin. Business Strategist is consulted. Patient on AVAPS. Continue bronchodilator and steroid, incentive spirometry and PEP. 2. Acute exacerbation of COPD /Obesity Hypoventilation Syndrome: On IV Solu- Medrol as mentioned above. Rest as mentioned above 3. Bilateral lower extremity edema with chronic HFpEF: Patient follows up with historic interpreter at outside hospital. Last echocardiogram on file on 04/13/2021. Echocardiogram at that time showed stage II diastolic dysfunction. BNP on presentation was 91.8. At home patient on torsemide at home 20 mg daily. Continue Lasix 40 mg IV push twice daily. Heart failure core measures including intake and output, fluid restriction less than 1500 mL, daily weight monitoring, kidney and electrolytes monitoring 4. DVT Prophylaxis Subcutaneous Lovenox ordered. Total time of the visit including total time spent in counseling or coordination of care, (more than 50% of the total time, spent in obtaining medical i nformation from nurses and other ancillary care providers,explaining to the patient about labs, imaging, diagnosis and management of active complex medical conditions), discussion with steam gigger, review of labs and imaging is 40 minutes. Assessment & Plan Plan Patient was admitted with severe shortness of breath, mild fever and respiratory distress consistent with acute on chronic combined respiratory failure. Patient on 2 to 3 L of home oxygen. 1. Acute on chronic combined respiratory failure probably due to COPD exacerbation/suspected pulmonary infection: Patient is being admitted in PCU. On BiPAP. Patient blood pressure was high. Lactic acid normal. Patient had fever to 100.9 Fahrenheit. Tachycardic tachypneic and leukocytosis but does not meet poor more than 2 organ dysfunction therefore sepsis ruled out. acute on chronic combined respiratory failure, acute on chronic respiratory acidosis, pH 7.19, PCO2 more than 137 on ABG. Chest x-ray was suboptimal quality shows bibasilar atelectasis. Pneumonia work-up was ordered. Patient empirically on IV antibiotics. On Levaquin. Discontinue azithromycin. Business Strategist is consulted. Patient on AVAPS. Continue bronchodilator and steroid, incentive spirometry and PEP. 2. Acute exacerbation of COPD /Obesity Hypoventilation Syndrome: On IV Solu- Medrol as mentioned above. Rest as mentioned above 3. Bilateral lower extremity edema with chronic HFpEF: Patient follows up with historic interpreter at outside hospital. Last echocardiogram on file on 04/13/2021. Echocardiogram at that time showed stage II diastolic dysfunction. BNP on presentation was 91.8. At home patient on torsemide at home 20 mg daily. Continue Lasix 40 mg IV push twice daily. Heart failure core measures including intake and output, fluid restriction less than 1500 mL, daily weight monitoring, kidney and electrolytes monitoring 4. DVT Prophylaxis Subcutaneous Lovenox ordered. Total time of the visit including total time spent in counseling or coordination of care, (more than 50% of the total time, spent in obtaining medical information from nurses and other ancillary care providers,explaining to the patient about labs, imaging, diagnosis and management of active complex medical conditions), discussion with steam gigger, review of labs and imaging is 40 min utes. Charges/Coding Visit Charges Inpatient E&M: 24837 Subs Hosp L3
[2022-11-06] MEDS: Furosemide 40 MG/4 ML Vial IV ×2 (09:01→18:20)
[2022-11-06] MEDS: Enoxaparin 40 MG/0.4 ML Syringe SC (09:01)
--- NOTE | 2022-11-06 09:40 | EX.PCM.CONCC ---
Assessment & Plan Assessment/Plan (1) Acute and chronic respiratory failure with hypoxia: PLAN: Plan RECOMMENDATIONS: 1. Check full respiratory viral panel. 2. Transition from AVAPS to nasal cannula oxygen, as tolerated. Goal to maintain saturations 88 to 92%. 3. Obtain and send sputum for culture. 4. Continue empiric antimicrobials, bronchodilators and steroids. 5. Continue IV diuretics as tolerated by hemodynamics and renal function. 6. Obtain CTA chest to rule out PE. 7. Encourage incentive spirometer use and mobilize patient as tolerated. 8. Continue appropriate DVT prophylaxis. IMPRESSIONS: 1. Acute on chronic combined respiratory failure Unclear precipitating etiology. However, the patient has end-stage COPD and is on maximum outpatient therapy, including supplemental oxygen. Infectious work-up thus far has been unremarkable. The patient did report that his outpatient diuretic regimen was recently adjusted. In addition, the patient was notably hypertensive on presentation. While underlying decompensated heart failure with preserved ejection fraction is a possibility, I am going to obtain a CTA chest to rule out PE as a potential precipitating etiology for his acute decompensation as well. In the interim, it is reasonable to continue empiric antimicrobials and send sputum for culture. The patient will be continued on bronchodilators and IV steroids. He can be weaned from BiPAP therapy to supplemental oxygen, with a goal to maintain saturations 88 to 92%. 2. Super morbid obesity/history of obstructive sleep apnea Complicates care, management, recovery and prognosis. The patient should be maintained on BiPAP 18/12 centimeters of water, per home regimen, with naps and nightly. This note was generated with prollie dictation software. It may contain incorrect words, spelling, and punctuation that were not noted in checking the note before signing. HPI Consult Data Date of Consult: 11/07/22 HPI Narrative Reason for Consultation: Acute on chronic respiratory failure HPI Narrative: The patient is a 51-year-old male, with a history as outlined below, who presented to the emergency department on November 05 with worsening shortness of breath. The patient is currently followed by Dr. Benavides in the pulmonary medicine clinic due to a history of chronic hypoxemic respiratory failure, asthma/COPD overlap and obstructive sleep apnea. The patient reported that he typically utilizes 2 to 3 L/min of supplemental oxygen on a routine basis. He has been compliant with his prescribed inhaler regimen. In addition to all of the aforementioned, the patient also has known heart failure with preserved ejection fraction and pulmonary hypertension. Apparently, his lab courier just recently decreased his diuretic regimen. On presentation to the emergency department, the patient was noted to be afebrile and hemodynamically stable. Initial laboratory evaluation revealed a white blood cell count of 15,000. Chemistry profile was notable for a bicarbonate of greater than 45. Preliminary arterial blood gas demonstrated a pH of 7.19 with the PCO2 of greater than 137. Initial chest x-ray was suboptimal with basilar atelectasis. Rapid flu and COVID were negative. The patient was placed on antimicrobials, scheduled bronchodilators, IV Lasix and steroids. He was admitted to the progressive care unit, where he has been maintained on AVAPS therapy. This morning, the patient was able to be removed from PAP therapy and transition to nasal cannula supplemental oxygen. [facility] Medical History (Updated 11/06/22 @ 16:[address] Martin Goetz MD) Acute respiratory failure with hypoxia and hypercapnia Anxiety BiPAP (biphasic positive airway pressure) dependence Blood disorder Cardiology follow-up encounter Chronic hypoxemic respiratory failure Closed fracture dislocation of joint of left lower extremity Closed fracture of left tibial plateau Congestive heart failure (CHF) COPD (chronic obstructive pulmonary disease) Depression Former smoker History of echocardiogram History of edema History of pain when walking HTN (hypertension) Hypertension Incarcerated umbilical hernia Obesities, morbid On home oxygen therapy LAYLA (obstructive sleep apnea) Other specified injury of left quadriceps muscle, fascia and tendon, initial encounter Pulmonary HTN Seasonal allergies Stage 4 very severe COPD by GOLD classification Stage 4 very severe COPD by GOLD classification Tobacco dependence Uses wheelchair Home Medications spironolactone 25 mg tablet 25 mg PO BID bp 12/02/15 [History Last Taken 11/08/21 05:00] guaifenesin 1,200 mg tablet, extended release 12 hr 1,200 mg PO Q12H PRN Cough 09/13/18 [History Last Taken 11/02/21] metoprolol succinate 50 mg tablet,extended release 24 hr 50 mg PO DAILY Heart 09/13/18 [History Last Taken 11/08/21 05:00] aspirin 81 mg tablet 81 mg PO DAILY Check with primary doctor 06/10/21 [History Last Taken 11/04/21] bupropion HCl 150 mg 24 hr tablet, extended release (Wellbutrin XL) 150 mg PO BID Check with primary doctor 10/11/21 [History Last Taken 11/08/21 05:00] acetaminophen 500 mg tablet 1,000 mg PO Q6H PRN Pain 11/04/21 [History Last Taken 11/07/21 20:00] budesonide-formoterol HFA 160 mcg-4.5 mcg/actuation aerosol inhaler (Symbicort) 2 puff inhalation BID BREATHING 11/08/21 [History Last Taken 11/08/21 05:00] cholecalciferol (vitamin D3) 125 mcg (5,000 unit) disintegrating tablet 5,000 unit PO DAILY SUPPLEMENT 11/08/21 [History Last Taken 11/08/21 05:00] cyanocobalamin (vitamin B-12) 500 mcg tablet 500 mcg PO DAILY SUPPLEMENT 11/08/21 [History Last Taken 11/08/21 05:00] PEP device #1 ea 01/23/22 [Rx Last Taken Unknown] sertraline 100 mg tablet 100 mg PO DAILY Check with primary doctor 01/23/22 [History Last Taken Unknown] albuterol sulfate 2.5 mg/3 mL (0.083 %) solution for nebulization 2.5 mg (3 mL) inhalation Q4H PRN shortness of breath or wheezing #360 mL 04/20/22 [Rx Last Taken Unknown] ipratropium 0.5 mg-albuterol 3 mg (2.5 mg base)/3 mL nebulization soln 3 ml inhalation Q4H PRN Wheezing #360 mL 04/20/22 [Rx Last Taken Unknown] furosemide 40 mg tablet 40 mg PO DAILY Check with primary doctor 05/23/22 [History Last Taken Unknown] montelukast 10 mg tablet (Singulair) 10 mg PO QPM COPD #30 tabs 06/30/22 [Rx Last Taken Unknown] albuterol sulfate 90 mcg/actuation aerosol inhaler (Ventolin HFA) 2 puff inhalation Q4H PRN shortness of breath or wheezing #18 grams 09/08/22 [Rx Last Taken Unknown] Demadex 20 mg PO/SL DAILY Check with primary doctor 11/05/22 [History Last Taken Unknown] mepolizumab 100 mg/mL subcutaneous auto-injector (Nucala) 300 mg subcut Q4W Check with primary doctor 11/05/22 [History Last Taken Unknown] Allergy/AdvReac Type Severity Reaction Status Date / Time clarithromycin [From Biaxin] Allergy Hives Verified 11/05/22 18:17 Penicillins Allergy Hives Verified 11/05/22 18:17 Family History Mother Diabetes Breast cancer Heart disease Hypertension COPD (chronic obstructive pulmonary disease) Asthma Father Hypertension CVA (cerebral vascular accident) Surgical History History of hernia repair (~08/2018) History of tonsillectomy History of tooth extraction Hx of cardiac cath Social History household members: spouse Smoking Status: Former smoker how long ago did patient quit smokin months ago second hand exposure: Yes quit status: has quit before alcohol intake: never substance use type: does not use ROS ROS Narrative 10 systems were reviewed with pertinent positives as noted in the HPI above. Physical Exam Const alert Constitutional Narrative: Super morbidly obese. Sitting in bedside recliner. General Appearance: cooperative HEENT normocephalic and head/scalp atraumatic Eyes PERRL, EOMs intact bilaterally and conjunctivae normal Neck supple General: trachea midline Chest inspection of chest normal Resp Resp Narrative: Globally diminished air movement with mild bibasilar rales. Effort and Inspection: tachypneic Cardio regular rate and regular rhythm GI normal to inspection, nondistended, normoactive bowel sounds Extremity General Extremity: edema bilateral lower extremity Skin no rashes or lesions noted Neuro oriented x3, CN's II-XII intact bilaterally, moves all extremities and no focal motor deficits Psych cooperative and affect normal Lab / Micro Data Result Diagrams: 11/07/22 03:09 11/07/22 03:09 Labs: Laboratory Results - last 24 hr 11/05/22 18:20: WBC 15.0 H, RBC 5.21, Hgb 16.7 H, Hct 56.2 H, MCV 107.9 H, MCH 32.1 H, MCHC 29.7 L, RDW Std Deviation 54.0 H, RDW Coeff of Valerie 13.3, Plt Count 220, MPV 10.2, Immature Gran % (Auto) 0.500, Neut % (Auto) 78.3 H, Lymph % (Auto) 12.6 L, Lamar % (Auto) 7.8, Eos % (Auto) 0.3, Baso % (Auto) 0.5, Absolute Neuts (auto) 11.7 H, Absolute Lymphs (auto) 1.89, Nucleated RBC % 0 11/05/22 18:20: PT Cancelled, INR Cancelled, APTT Cancelled 11/05/22 18:20: Sodium 134 L, Potassium 4.7, Chloride 87 L, Carbon Dioxide > 45.0 H*, Anion Gap TNP, BUN 13, Creatinine 0.77, Estim Creat Clear Calc 121.77, Est GFR (MDRD) Af Amer 136, Est GFR (MDRD) Non-Af 112, BUN/Creatinine Ratio 16.9, Glucose 123 H, Calcium 9.0, Troponin I High Sens 18 11/05/22 18:20: Lactic Acid 0.6 11/05/22 18:20: B-Natriuretic Peptide 91.8 11/05/22 18:20: Procalcitonin 0.04 11/05/22 18:26: POC Glucose 145 H 11/05/22 19:18: PT 13.2, INR 1.0, APTT 31.2 11/06/22 05:45: WBC 13.1 H, RBC 5.07, Hgb 16.4, Hct 55.0 H, MCV 108.5 H, MCH 32.3 H, MCHC 29.8 L, RDW Std Deviation 54.4 H, RDW Coeff of Valerie 13.4, Plt Count 177, MPV 10.9, Immature Gran % (Auto) 1.100 H, Neut % (Auto) 89.5 H, Lymph % (Auto) 6.5 L, Lamar % (Auto) 2.7, Eos % (Auto) 0.0, Baso % (Auto) 0.2, Absolute Neuts (auto) 11.8 H, Absolute Lymphs (auto) 0.85, Nucleated RBC % 0 11/06/22 05:45: Sodium 132 L, Potassium 4.4, Chloride 85 L, Carbon Dioxide > 45.0 H*, Anion Gap TNP, BUN 12, Creatinine 0.52 L, Estim Creat Clear Calc 180.32, Est GFR (MDRD) Af Amer 212, Est GFR (MDRD) Non-Af 175, BUN/Creatinine Ratio 22.9 H, Glucose 131 H, Calcium 9.0 Micro: Microbiology 11/05/22 22:15 Urine, Clean Catch Legionella Antigen - Final 11/05/22 22:15 Urine, Clean Catch Streptococcus pneumoniae Antigen (M - Final 11/05/22 18:25 Nasal Secretion SARS-CoV-2 & FLU Antigen (Rapid) - Final ABG Data ABG results: ABG 11/05/22 11/05/22 18:34 21:40 Specimen Type ART ART Sample Site R Radial L RADIAL pH 7.19 L* 7.25 L Bicarbonate Actual TNP 57.2 H Total CO2 TNP > 50 Base Excess TNP 30 H O2 Saturation TNP 93 L O2 % 50 40 ABG pCO2 > 137.0 H* 129.9 H* ABG pO2 86 87 Tal Test Positive POS Respiration Rate 12 O2 Delivery Device AVAPS Inspiratory Time 0.95 Tidal Volume 450 EPAP 12 Crit Call To/Read Back Yes Yes Blood Gas Notified Whom [facility] GEGE STEVENS Blood Gas Notified Time 2140 Clinical Comments BIPAP 14/11 High PS 28/Low PS 16 Radiology Impression Chest X-Ray 11/05/22 18:50 IMPRESSION: Poor inspiration with some bibasilar atelectasis. Electronically Signed: Edgard Lozada MD at 19:05 EST , Charges/Coding Visit Charges Inpatient E&M: 27579 Init Hosp L3
--- NOTE | 2022-11-06 10:22 | CT_ITS ---
STUDY: CTA CHEST REASON FOR EXAM: Male, 51 years old. Acute on chronic hypoxemic respiratory failure RADIATION DOSAGE (If Supplied By Facility): CTDIvol = ( 22.17 ) mGy, DLP = ( 612.28 ) mGycm TECHNIQUE: The examination was performed with the intravenous administration of IV 100mL Isovue-370. Post-processing of the angiographic images was performed, with multiplanar reformation and 3D reconstruction. Individualized dose optimization techniques were used for this CT. COMPARISON: Comparison is made with prior CT of the chest dated 01/25/2018 and prior chest radiograph dated 11/05/2022. FINDINGS: There is evidence of intraluminal filling defects in branches of the right and left upper lobe pulmonary artery as well as in the peripheral aspect of the lower lobe pulmonary arteries including with the pulmonary emboli. Normal thoracic aorta and visualized great vessels. There is no demonstrated aortic dissection. Normal heart and pericardium. Normal mediastinum. Normal hilar regions. Normal visualized trachea and bronchi. The lungs are well expanded. Normal pulmonary parenchyma. Normal pleura. Normal chest wall structures. Normal osseous structures. Normal visualized upper abdomen. CT/CTA Chest W/WO Contrast IMPRESSION: Bilateral small multiple pulmonary emboli. Electronically Signed: Arsenio Funk MD at 11:30 EST ,
--- NOTE | 2022-11-06 10:55 | CASEMGMT ---
RN CM Face to Face with patient for initial transition planning/care coordination assessment. RN CM introduced self and role at [facility]. Patient lying in bed, alert and oriented, family at bedside. Patient willing to participate in assessment and is able to answer all questions appropriately. Care providers, pharmacy, and demographics verified. Patient wishes to discharge home, denies need for home health at this time. Will monitor patient for outpatient PT/OT. Patient states he has no further needs or concerns at this time. CM to follow for discharge planning needs that may arise. PCP: Yumi Peralta Specialists: Kennedy, loader magazine grinder; Bear Bojorquez, insurance agency manager Javed Bennett Preferred Pharmacy: [facility] Insurance: [employer] Prescription Benefit: yes Living Will/HPOA: none, would like to complete, SW notified LNOK: son, girlfriend Living Arrangements: Patient lives with girlfriend in a mobile home with 7 steps and railing to enter. Patient states he is independent at home. Transportation: self, significant other DME/HHC: Patient states he has shower chair, BSC, cane, walker, grab bars, bipap, nebulizer, pulse ox, and home oxygen through [employer] at 2lpm with portability. Patient has been to [facility]. Will monitor for possible outpatient therapy. Disposition Plan: Patient to discharge home with family support and follow-up plans in place. Ariana ZUNIGA, RN, CM
[2022-11-06] MEDS: guaiFENesin 1,200 MG Tablet 1200 MG PO ×2 (12:38→19:51)
[2022-11-06] MEDS: Metoprolol(XL)Succ 50 MG Tablet PO (12:38)
[2022-11-06] MEDS: Cholecalciferol (Vit D3) 125 MCG CAPSULE (5,000 UNITS) PO (12:38)
[2022-11-06] MEDS: Aspirin 81 MG TAB.CHEW PO (12:40)
[2022-11-06] MEDS: HEPARIN/D5w 25,000 UNITS 25,000 UNITS/250 ML IV.SOLN. 19 UNITS CONT INF (14:11)
--- NOTE | 2022-11-06 15:12 | CASEMGMT ---
Per RN CM patient is interested in completing advance directives. This SW and SERJIO Emery went to patient's room and patient was sleeping. SW will check back. Norah Lee AIR MARSHAL MANUEL
[2022-11-06] MEDS: buPROPion (SR) 150 MG Tablet.SA PO (19:51)
[2022-11-06] MEDS: Montelukast 10 MG Tablet PO (19:51)
[2022-11-06] MEDS: Spironolactone 25 MG Tablet PO (19:51)
[2022-11-06] MEDS: 0.9% Saline Lock 10 ML Syringe IV (21:00)
[2022-11-06] MEDS: levoFLOXacin IV 750 MG/150 ML BAG 100 MG IV (21:01)
[2022-11-06 21:04] LABS: Partial Thromboplast Time 78.6 Seconds (24.1-36.2)
[2022-11-07] VITALS (14 sets, daily range): BP systolic 113–129; BP diastolic 59–95; PULSE 78–96; RESP 12–21; TEMP 36.4–36.8; O2SAT 94–98
[2022-11-07] MEDS: HEPARIN/D5w 25,000 UNITS 25,000 UNITS/250 ML IV.SOLN. 19 UNITS CONT INF (02:37)
[2022-11-07 03:16] LABS: Absolute Lymphocyte Count 0.66 X10^3/uL (0.83-4.51); Absolute Neutrophil Count 12.6 X10^3/uL (2.0-7.7); Basophil# 0.02 X10^3/uL; Basophil% 0.1 % (0-1); Hematocrit 52.1 % (40-54); Hemoglobin 15.5 g/dL (13.0-16.5); Lymphocyte # 0.66 X10^3/ul (0.83-4.51); Lymphocyte % 4.7 % (19-41); Mean Corp Hgb Conc 29.8 g/dL (32-36); Mean Corpuscular Hgb 32.2 pg (27.0-32.0); Mean Corpuscular Volume 108.1 fL (80-94); Mean Platelet Vol. 10.4 fl (6.2-12.0); Monocyte# 0.55 X10^3/uL; NRBC Flagged by Analyzer 0 % (0-5); Neutrophil # 12.61 X10^3/uL (2.7-7.7); Neutrophil % 90.6 % (47-70); Platelet Count 198 K/mm3 (150-450); RBC Distribution Width CV 13.2 % (11.6-14.6); RBC Distribution Width SD 53.7 fl (35.1-43.9); Red Blood Count 4.82 M/mm3 (4.6-6.2); White Blood Count 13.9 K/mm3 (4.4-11.0)
[2022-11-07 03:30] LABS: Partial Thromboplast Time 94.9 Seconds (24.1-36.2)
[2022-11-07 03:34] LABS: BUN 18 mg/dL (7-18); Calcium,Total 9.1 mg/dL (8.5-10.1); Carbon Dioxide > 45.0 mmol/L (21.0-32.0); Chloride 85 mmol/L (98-107); Creatinine, Serum 0.69 mg/dL (0.70-1.30); EST Glomerular Filtration Rate 127 mL/min (>60); Est Glom Filt Rate - Afr Amer 153 mL/min (>60); Estimated Creatinine Clearance 135.89 ml/min; Glucose 162 mg/dL (74-106); Potassium 4.3 mmol/L (3.5-5.1); Sodium Level 134 mmol/L (136-145)
[2022-11-07] MEDS: 0.9% Saline Lock 10 ML Syringe IV ×4 (05:45→20:38)
[2022-11-07] MEDS: Ipratropium/Albuterol Sulfate 3 ML AMPUL.NEB INHALATION ×3 (07:57→15:03)
--- NOTE | 2022-11-07 08:30 | PCM.PN.HOSP ---
Subjective Subjective Follow-up for PE, COPD exacerbation and respiratory failure. Overall patient shortness of breath is better. I discussed about the PE to the patient. Patient is off BiPAP in the morning. Objective Data Objective Data Vital Signs: Vital Signs Temp Pulse Resp BP Pulse Ox O2 Del Method O2 Flow Rate 98.3 F 90 21 H 113/66 94 Nasal Cannula 4 11/07/22 03:20 11/07/22 07:57 11/07/22 07:57 11/07/22 03:20 11/07/22 07:57 11/07/22 07:57 11/07/22 07:57 FiO2 40 11/06/22 22:17 Oxygen Flow Rate (L/min) 4 Oxygen Delivery Method Nasal Cannula Weight: 351 lb 10.197 oz Body Mass Index (BMI) 47.2 Intake & Output: Intake and Output for Last 24 Hours 11/05/22 11/06/22 11/07/22 23:59 23:59 23:59 Intake Total 250 / 250 690 / 690 354.60 / 354.60 Output Total 1775 / 2400 1075 / 1075 Balance 250 / 250 -1085 / -1710 -720.40 / -720.40 Lab / Micro Data Result Diagrams: 11/07/22 03:09 11/07/22 03:09 Labs: Laboratory Results - last 24 hr 11/06/22 20:35: APTT 78.6 H 11/07/22 03:09: WBC 13.9 H, RBC 4.82, Hgb 15.5, Hct 52.1, MCV 108.1 H, MCH 32.2 H, MCHC 29.8 L, RDW Std Deviation 53.7 H, RDW Coeff of Valerie 13.2, Plt Count 198, MPV 10.4, Immature Gran % (Auto) 0.600, Neut % (Auto) 90.6 H, Lymph % (Auto) 4.7 L, Chicot % (Auto) 4.0, Eos % (Auto) 0.0, Baso % (Auto) 0.1, Absolute Neuts (auto) 12.6 H, Absolute Lymphs (auto) 0.66 L, Nucleated RBC % 0 11/07/22 03:09: Sodium 134 L, Potassium 4.3, Chloride 85 L, Carbon Dioxide > 45.0 H*, Anion Gap TNP, BUN 18, Creatinine 0.69 L, Estim Creat Clear Calc 135.89, Est GFR (MDRD) Af Amer 153, Est GFR (MDRD) Non-Af 127, BUN/Creatinine Ratio 26.0 H, Glucose 162 H, Calcium 9.1 11/07/22 03:09: APTT 94.9 H* Micro: Microbiology 11/06/22 09:59 Mucosa - Nasopharyngeal Respiratory Panel (PCR) - Final 11/05/22 22:15 Urine, Clean Catch Legionella Antigen - Final 11/05/22 22:15 Urine, Clean Catch Streptococcus pneumoniae Antigen (M - Final 11/05/22 18:25 Nasal Secretion SARS-CoV-2 & FLU Antigen (Rapid) - Final Radiography Diagnostic Testing: Radiology Impression Chest CTA 11/06/22 10:22 IMPRESSION: Bilateral small multiple pulmonary emboli. Physical Exam Narrative Seen and examined. Blood pressure is good.. Mild shortness of breath. Patient mentioned that he had PE couple years ago probably to 3 years ago and had Lovenox. He is unclear whether he had for treatment of Lovenox or switch to DOAC. Besides that he had also about a month off Eliquis as DVT prophylaxis after knee surgery recently. His mother has history of multiple DVTs and PE and she has heart problem. Physical exam General: Alert, Oriented x3, Cooperative HEENT: Atraumatic, PERRLA, EOMI, Normocephalic Oral: BiPAP mask. Neck: Supple, No JVD, Negative Carotid Bruits Lungs: Air entry diminished bilaterally. Bilateral expiratory rhonchi. On BiPAP as needed and at night. Cardiovascular: Sinus rhythm heart rate 81/min., Normal S1, Normal S2, No murmurs Abdomen: Bowel Sounds Present, Soft, Non Tender, Non-Distended : No renal angle tenderness. No suprapubic tenderness. Extremities: Bilateral 2+ below-knee edema, Capillary Refill Less than 3 Seconds Skin: No rashes, No breakdown Musculoskeletal: No Tenderness to Palpation of Joints or Extremities, ROM restricted, muscle strength 4+/5 at major hip and knee joints Neurological: Cranial nerves II-XII grossly intact, DTR 2+/4 and Symmetrical Psych/Mental Status: Flat affect Assessment & Plan Assessment/Plan (1) Pneumonia: (2) Bilateral lower extremity edema: (3) Acute exacerbation of chronic obstructive pulmonary disease: (4) Obesity hypoventilation syndrome: (5) Acute on chronic respiratory failure with hypoxia and hypercapnia: PLAN: Plan Patient was admitted with severe shortness of breath, mild fever and respiratory distress consistent with acute on chronic combined respiratory failure.? Patient on 2 to 3 L of home oxygen. 1.? Acute on chronic combined respiratory failure probably due to COPD exacerbation/pulmonary embolism, pulmonary hypertension and suspected pulmonary infection: Patient is being admitted in PCU.? On BiPAP.? Patient blood pressure was high.? Lactic acid normal.? Patient had fever to 100.9 Fahrenheit.? Tachycardic tachypneic and leukocytosis but does not meet poor more than 2 organ dysfunction therefore sepsis ruled out. acute on chronic combined respiratory failure, acute on chronic respiratory acidosis, pH 7.19, PCO2 more than 137 on ABG.? Chest x-ray was suboptimal quality shows bibasilar atelectasis.? Pneumonia work-up was ordered.? Patient empirically on IV antibiotics.? On Levaquin.? Discontinue azithromycin. Technical Business Systems Analyst is consulted.? Patient on AVAPS.? Continue bronchodilator and steroid, incentive spirometry and PEP. 11/07: Chest CTA was done which shows bilateral segmental and subsegmental and peripheral bilateral upper lobes and lower lobes of pulmonary arteries: Discussed with helmet hat brim cutter. Patient is on IV heparin drip. We will switch to Eliquis tomorrow AM. Respiratory status is better. I discussed with the patient that he will need lifelong anticoagulant at this is a second episode of pulmonary embolism and his mother also has history of DVT/PE. Azithromycin discontinued. Rest continue other medications. 2.? Acute exacerbation of? COPD /Obesity Hypoventilation Syndrome: On IV Solu-Medrol as mentioned above.? Rest as mentioned above 3.? Bilateral lower extremity edema with chronic HFpEF: Patient follows up with flight operation coordinator at outside hospital.? Last echocardiogram on file on 04/13/2021.? Echocardiogram at that time showed stage II diastolic dysfunction. BNP on presentation was 91.8. At home patient on torsemide at home 20 mg daily.? Continue Lasix 40 mg IV push twice daily.? Heart failure core measures including intake and output, fluid restriction less than 1500 mL, daily weight monitoring, kidney and electrolytes monitoring 4.? DVT Prophylaxis Subcutaneous Lovenox ordered. Total time of the visit including total time spent in counseling or coordination of care, (more than 50% of the total time, spent in obtaining medical information from nurses and other ancillary care providers,explaining to the patient about labs, imaging, diagnosis and management of active complex medical conditions), discussion with helmet hat brim cutter, review of labs and imaging is? 40 minutes. Clinical Impression(s) from Imaging Studies Chest X-Ray 11/05/22 18:50 IMPRESSION: Poor inspiration with some bibasilar atelectasis. Chest CTA 11/06/22 10:22 IMPRESSION: Bilateral small multiple pulmonary emboli. Microbiology Past 72 Hours 11/06/22 09:59 Mucosa - Nasopharyngeal Respiratory Panel (PCR) - Final 11/05/22 22:15 Urine, Clean Catch Legionella Antigen - Final 11/05/22 22:15 Urine, Clean Catch Streptococcus pneumoniae Antigen (M - Final 11/05/22 18:25 Nasal Secretion SARS-CoV-2 & FLU Antigen (Rapid) - Final Laboratory Results 11/06/22 20:35: APTT 78.6 H 11/07/22 03:09: WBC 13.9 H, RBC 4.82, Hgb 15.5, Hct 52.1, MCV 108.1 H, MCH 32.2 H, MCHC 29.8 L, RDW Std Deviation 53.7 H, RDW Coeff of Valerie 13.2, Plt Count 198, MPV 10.4, Immature Gran % (Auto) 0.600, Neut % (Auto) 90.6 H, Lymph % (Auto) 4.7 L, Chicot % (Auto) 4.0, Eos % (Auto) 0.0, Baso % (Auto) 0.1, Absolute Neuts (auto) 12.6 H, Absolute Lymphs (auto) 0.66 L, Nucleated RBC % 0 11/07/22 03:09: Sodium 134 L, Potassium 4.3, Chloride 85 L, Carbon Dioxide > 45.0 H*, Anion Gap TNP, BUN 18, Creatinine 0.69 L, Estim Creat Clear Calc 135.89, Est GFR (MDRD) Af Amer 153, Est GFR (MDRD) Non-Af 127, BUN/Creatinine Ratio 26.0 H, Glucose 162 H, Calcium 9.1 11/07/22 03:09: APTT 94.9 H* Charges/Coding Visit Charges Inpatient E&M: 07868 Subs Hosp L3
[2022-11-07] MEDS: guaiFENesin 1,200 MG Tablet 1200 MG PO ×2 (09:32→20:36)
[2022-11-07] MEDS: Spironolactone 25 MG Tablet PO ×2 (09:32→20:36)
[2022-11-07] MEDS: Cholecalciferol (Vit D3) 125 MCG CAPSULE (5,000 UNITS) PO (09:32)
[2022-11-07] MEDS: Aspirin 81 MG TAB.CHEW PO (09:32)
[2022-11-07] MEDS: Furosemide 40 MG/4 ML Vial IV ×2 (09:32→17:42)
[2022-11-07] MEDS: Metoprolol(XL)Succ 50 MG Tablet PO (09:32)
[2022-11-07] MEDS: Sertraline 100 MG Tablet PO (09:32)
[2022-11-07] MEDS: Cyanocobalamin 500 MCG Tablet PO (09:32)
[2022-11-07] MEDS: buPROPion (SR) 150 MG Tablet.SA PO ×2 (09:32→20:36)
--- NOTE | 2022-11-07 09:43 | PCM.PN.INT ---
Assessment & Plan Assessment/Plan (1) Acute and chronic respiratory failure with hypoxia: PLAN: Plan RECOMMENDATIONS: 1. Continue to wean supplemental oxygen as tolerated. 2. Continue PAP therapy with naps and nightly. 3. Okay to transition from heparin to either Eliquis or Xarelto. 4. Continue Levaquin to complete 7-day treatment course. 5. Continue diuretics as tolerated by hemodynamics and renal function. 6. Continue bronchodilators and steroids. Anticipate need for prednisone burst at discharge. 7. Encourage incentive spirometer use and mobilize patient as tolerated. IMPRESSIONS: 1. Acute on chronic combined respiratory failure/bilateral pulmonary emboli Most likely precipitated by presenting pulmonary emboli. However, the patient has end-stage COPD and is on maximum outpatient therapy, including supplemental oxygen. Infectious work-up thus far has been unremarkable. The patient did report that his outpatient diuretic regimen was recently adjusted. In addition, the patient was notably hypertensive on presentation. While underlying decompensated heart failure with preserved ejection fraction is a possibility, I think it is more likely that the pulmonary emboli precipitated a COPD exacerbation. It is reasonable to continue empiric antimicrobials to complete a 7-day treatment course along with a prednisone burst of prednisone 40 mg daily x5 days. The patient can be transitioned from a heparin infusion to either Eliquis or Xarelto. He should be maintained on PAP therapy with naps and nightly. 2. Super morbid obesity/history of obstructive sleep apnea Complicates care, management, recovery and prognosis. The patient should be maintained on BiPAP 18/12 centimeters of water, per home regimen, with naps and nightly. This note was generated with [employer] dictation software. It may contain incorrect words, spelling, and punctuation that were not noted in checking the note before signing. Subjective Subjective The patient was seen and examined at the bedside this morning. Events from the last 24 hours have been reviewed. The patient is currently afebrile, hemodynamically stable and maintaining appropriate oxygen saturations on 4 L/min via nasal cannula. The patient is documented to be overall net -1.5 L for the hospitalization. CTA chest completed yesterday did demonstrate PEs. Therefore, the patient was started on a heparin infusion. The patient does report interval improvement in his breathing quality. He did report to me that he was diagnosed with pulmonary emboli at an outside hospital approximately 4 years ago as well. Objective Data Objective Data The patient's most recent lab work, culture data and imaging studies have all been personally reviewed. CTA chest demonstrated bilateral pulmonary emboli. Respiratory viral panel was negative. Strep and urine Legionella antigens were negative. Rapid flu and COVID testing was negative. Vital Signs: Vital Signs Temp Pulse Resp BP Pulse Ox O2 Del Method O2 Flow Rate 98.2 F 96 18 129/95 H 94 Nasal Cannula 4 11/07/22 09:30 11/07/22 09:32 11/07/22 09:30 11/07/22 09:32 11/07/22 09:30 11/07/22 09:30 11/07/22 09:30 FiO2 40 11/06/22 22:17 Oxygen Flow Rate (L/min) 4 Oxygen Delivery Method Nasal Cannula Weight: 351 lb 10.197 oz Body Mass Index (BMI) 47.2 Intake & Output: Intake and Output for Last 24 Hours 11/05/22 11/06/22 11/07/22 23:59 23:59 23:59 Intake Total 250 / 250 690 / 690 354.60 / 354.60 Output Total 1775 / 2400 1075 / 1075 Balance 250 / 250 -1085 / -1710 -720.40 / -720.40 Lab / Micro Data Attestation: I reviewed the patient's lab results. Result Diagrams: 11/07/22 03:09 11/07/22 03:09 Labs: Laboratory Results - last 24 hr 11/06/22 20:35: APTT 78.6 H 11/07/22 03:09: WBC 13.9 H, RBC 4.82, Hgb 15.5, Hct 52.1, MCV 108.1 H, MCH 32.2 H, MCHC 29.8 L, RDW Std Deviation 53.7 H, RDW Coeff of Valerie 13.2, Plt Count 198, MPV 10.4, Immature Gran % (Auto) 0.600, Neut % (Auto) 90.6 H, Lymph % (Auto) 4.7 L, [place] % (Auto) 4.0, Eos % (Auto) 0.0, Baso % (Auto) 0.1, Absolute Neuts (auto) 12.6 H, Absolute Lymphs (auto) 0.66 L, Nucleated RBC % 0 11/07/22 03:09: Sodium 134 L, Potassium 4.3, Chloride 85 L, Carbon Dioxide > 45.0 H*, Anion Gap TNP, BUN 18, Creatinine 0.69 L, Estim Creat Clear Calc 135.89, Est GFR (MDRD) Af Amer 153, Est GFR (MDRD) Non-Af 127, BUN/Creatinine Ratio 26.0 H, Glucose 162 H, Calcium 9.1 11/07/22 03:09: APTT 94.9 H* Micro: Microbiology 11/06/22 09:59 Mucosa - Nasopharyngeal Respiratory Panel (PCR) - Final 11/05/22 22:15 Urine, Clean Catch Legionella Antigen - Final 11/05/22 22:15 Urine, Clean Catch Streptococcus pneumoniae Antigen (M - Final 11/05/22 18:25 Nasal Secretion SARS-CoV-2 & FLU Antigen (Rapid) - Final Radiography Diagnostic Testing: Radiology Impression Chest CTA 11/06/22 10:22 IMPRESSION: Bilateral small multiple pulmonary emboli. Electronically Signed: Arsenio Funk MD at 11:30 EST , Physical Exam Const alert Constitutional Narrative: Super morbidly obese. Sitting upright in bed. General Appearance: cooperative HEENT normocephalic and head/scalp atraumatic Eyes PERRL, EOMs intact bilaterally and conjunctivae normal Neck supple General: trachea midline Chest inspection of chest normal Resp Resp Narrative: Globally diminished air movement. Effort and Inspection: able to speak in complete sentences; Negative for labored or actively coughing Cardio regular rate and regular rhythm GI normal to inspection, nondistended, normoactive bowel sounds Extremity General Extremity: edema bilateral lower extremity Skin no rashes or lesions noted Neuro oriented x3, CN's II-XII intact bilaterally, moves all extremities and no focal motor deficits Psych cooperative and affect normal Charges/Coding Visit Charges Inpatient E&M: 62712 Subs Hosp L3
[2022-11-07 11:11] LABS: Partial Thromboplast Time 58.6 Seconds (24.1-36.2)
[2022-11-07 16:53] LABS: Partial Thromboplast Time 67.4 Seconds (24.1-36.2)
[2022-11-07] MEDS: HEPARIN/D5w 25,000 UNITS 25,000 UNITS/250 ML IV.SOLN. 17 UNITS CONT INF (19:15)
[2022-11-07] MEDS: Montelukast 10 MG Tablet PO (20:35)
[2022-11-07] MEDS: levoFLOXacin IV 750 MG/150 ML BAG 100 MG IV (20:36)
[2022-11-08] VITALS (18 sets, daily range): BP systolic 119–153; BP diastolic 68–97; PULSE 63–99; RESP 12–23; TEMP 36.6–36.9; O2SAT 86–100
[2022-11-08] MEDS: 0.9% Saline Lock 10 ML Syringe IV ×3 (04:59→21:58)
[2022-11-08 05:13] LABS: Absolute Lymphocyte Count 0.76 X10^3/uL (0.83-4.51); Absolute Neutrophil Count 13.2 X10^3/uL (2.0-7.7); Basophil# 0.02 X10^3/uL; Basophil% 0.1 % (0-1); Hematocrit 52.5 % (40-54); Hemoglobin 15.6 g/dL (13.0-16.5); Lymphocyte # 0.76 X10^3/ul (0.83-4.51); Lymphocyte % 5.1 % (19-41); Mean Corp Hgb Conc 29.7 g/dL (32-36); Mean Corpuscular Volume 107.6 fL (80-94); Mean Platelet Vol. 10.2 fl (6.2-12.0); Monocyte# 0.77 X10^3/uL; Monocyte% 5.2 % (0-10); NRBC Flagged by Analyzer 0 % (0-5); Neutrophil # 13.22 X10^3/uL (2.7-7.7); Platelet Count 181 K/mm3 (150-450); RBC Distribution Width CV 13.2 % (11.6-14.6); RBC Distribution Width SD 52.4 fl (35.1-43.9); Red Blood Count 4.88 M/mm3 (4.6-6.2); White Blood Count 14.9 K/mm3 (4.4-11.0)
[2022-11-08 05:27] LABS: Partial Thromboplast Time 64.5 Seconds (24.1-36.2)
[2022-11-08 05:43] LABS: BUN 20 mg/dL (7-18); BUN/Creat Ratio 33.4 RATIO (10-20); Carbon Dioxide > 45.0 mmol/L (21.0-32.0); Chloride 86 mmol/L (98-107); EST Glomerular Filtration Rate 150 mL/min (>60); Est Glom Filt Rate - Afr Amer 181 mL/min (>60); Estimated Creatinine Clearance 156.28 ml/min; Glucose 124 mg/dL (74-106); Potassium 4.4 mmol/L (3.5-5.1); Sodium Level 134 mmol/L (136-145)
[2022-11-08] MEDS: Ipratropium/Albuterol Sulfate 3 ML AMPUL.NEB INHALATION ×4 (07:36→19:12)
--- NOTE | 2022-11-08 08:49 | PN.CC_ITS ---
Assessment & Plan Assessment/Plan (1) Acute and chronic respiratory failure with hypoxia: PLAN: Plan RECOMMENDATIONS: 1. Continue to wean supplemental oxygen as tolerated. 2. Continue PAP therapy with naps and nightly. 3. Okay to transition from heparin to either Eliquis or Xarelto. 4. Continue Levaquin to complete 7-day treatment course. 5. Continue diuretics as tolerated by hemodynamics and renal function. 6. Continue bronchodilators and steroids. Anticipate need for prednisone burst at discharge. Recommend 40 mg daily x5 days. 7. Encourage incentive spirometer use and mobilize patient as tolerated. 8. The patient should follow-up in the pulmonary medicine clinic in 2 weeks. 9. The patient is stable for discharge home from my perspective. We will sign off. Please call with any additional questions. IMPRESSIONS: 1. Acute on chronic combined respiratory failure/bilateral pulmonary emboli Most likely precipitated by presenting pulmonary emboli. However, the patient has end-stage COPD and is on maximum outpatient therapy, including supplemental oxygen. Infectious work-up thus far has been unremarkable. The patient did report that his outpatient diuretic regimen was recently adjusted. In addition, the patient was notably hypertensive on presentation. While underlying decompensated heart failure with preserved ejection fraction is a possibility, I think it is more likely that the pulmonary emboli precipitated a COPD exacerbation. It is reasonable to continue empiric antimicrobials to complete a 7-day treatment course along with a prednisone burst of prednisone 40 mg daily x5 days. The patient can be transitioned from a heparin infusion to either Eliquis or Xarelto. He should be maintained on PAP therapy with naps and nightly. 2. Super morbid obesity/history of obstructive sleep apnea Complicates care, management, recovery and prognosis. The patient should be maintained on BiPAP 18/12 centimeters of water, per home regimen, with naps and nightly. This note was generated with [employer] dictation software. It may contain incorrect words, spelling, and punctuation that were not noted in checking the note before signing. Subjective Subjective The patient was seen and examined at the bedside this morning. Events from the last 24 hours have been reviewed. The patient is currently afebrile, hemodynamically stable and maintaining appropriate oxygen saturations on 3 L/min via nasal cannula. The patient is documented to be overall net -4 L for the hospitalization. He remains compliant with nocturnal Pap therapy. He does report overall improvement in his breathing quality. Objective Data Objective Data The patient's most recent lab work, culture data and imaging studies have all been personally reviewed. CTA chest demonstrated bilateral pulmonary emboli. Respiratory viral panel was negative. Strep and urine Legionella antigens were negative. Rapid flu and COVID testing was negative. Vital Signs: Vital Signs Temp Pulse Resp BP Pulse Ox O2 Del Method O2 Flow Rate 97.9 F 73 20 H 143/97 H 94 Bi-pap 4 11/08/22 06:23 11/08/22 07:38 11/08/22 07:38 11/08/22 06:23 11/08/22 07:38 11/08/22 06:23 11/08/22 04:56 FiO2 40 11/08/22 07:38 Oxygen Flow Rate (L/min) 4 Oxygen Delivery Method Bi-pap Weight: 354 lb 8.053 oz Body Mass Index (BMI) 47.2 Intake & Output: Intake and Output for Last 24 Hours 11/06/22 11/07/22 11/08/22 23:59 23:59 23:59 Intake Total 690 / 690 1316.23 / 1436.23 320 / 320 Output Total 1775 / 2400 2675 / 4025 2100 / 2100 Balance -1085 / -1710 -1358.77 / -2588.77 -1780 / -1780 Lab / Micro Data Attestation: I reviewed the patient's lab results. Result Diagrams: 11/08/22 04:53 11/08/22 04:53 Labs: Laboratory Results - last 24 hr 11/07/22 10:45: APTT 58.6 H 11/07/22 16:40: APTT 67.4 H 11/08/22 04:53: WBC 14.9 H, RBC 4.88, Hgb 15.6, Hct 52.5, MCV 107.6 H, MCH 32.0, MCHC 29.7 L, RDW Std Deviation 52.4 H, RDW Coeff of Valerie 13.2, Plt Count 181, MPV 10.2, Immature Gran % (Auto) 0.600, Neut % (Auto) 89.0 H, Lymph % (Auto) 5.1 L, [place] % (Auto) 5.2, Eos % (Auto) 0.0, Baso % (Auto) 0.1, Absolute Neuts (auto) 13.2 H, Absolute Lymphs (auto) 0.76 L, Nucleated RBC % 0 11/08/22 04:53: Sodium 134 L, Potassium 4.4, Chloride 86 L, Carbon Dioxide > 45.0 H*, Anion Gap TNP, BUN 20 H, Creatinine 0.60 L, Estim Creat Clear Calc 156.28, Est GFR (MDRD) Af Amer 181, Est GFR (MDRD) Non-Af 150, BUN/Creatinine Ratio 33.4 H, Glucose 124 H, Calcium 9.0 11/08/22 04:53: APTT 64.5 H Micro: Microbiology 11/06/22 09:59 Mucosa - Nasopharyngeal Respiratory Panel (PCR) - Final 11/05/22 22:15 Urine, Clean Catch Legionella Antigen - Final 11/05/22 22:15 Urine, Clean Catch Streptococcus pneumoniae Antigen (M - Final 11/05/22 18:25 Nasal Secretion SARS-CoV-2 & FLU Antigen (Rapid) - Final Radiography Diagnostic Testing: Radiology Impression Chest CTA 11/06/22 10:22 IMPRESSION: Bilateral small multiple pulmonary emboli. Electronically Signed: Arsenio Funk MD at 11:30 EST , Physical Exam Const alert Constitutional Narrative: Super morbidly obese. Sitting upright in bed. General Appearance: cooperative HEENT normocephalic and head/scalp atraumatic Eyes PERRL, EOMs intact bilaterally and conjunctivae normal Neck supple General: trachea midline Chest inspection of chest normal Resp Resp Narrative: Globally diminished air movement. Effort and Inspection: able to speak in complete sentences; Negative for labored or actively coughing Auscultation: wheezes Cardio regular rate and regular rhythm GI normal to inspection, nondistended, normoactive bowel sounds Extremity General Extremity: edema bilateral lower extremity Skin no rashes or lesions noted Neuro oriented x3, CN's II-XII intact bilaterally, moves all extremities and no focal motor deficits Psych cooperative and affect normal Charges/Coding Visit Charges Inpatient E&M: 19669 Subs Hosp L2
[2022-11-08] MEDS: Cholecalciferol (Vit D3) 125 MCG CAPSULE (5,000 UNITS) PO (09:38)
[2022-11-08] MEDS: guaiFENesin 1,200 MG Tablet 1200 MG PO ×2 (09:38→23:46)
[2022-11-08] MEDS: Aspirin 81 MG TAB.CHEW PO (09:38)
[2022-11-08] MEDS: buPROPion (SR) 150 MG Tablet.SA PO ×2 (09:38→21:54)
[2022-11-08] MEDS: Spironolactone 25 MG Tablet PO ×2 (09:38→21:54)
[2022-11-08] MEDS: Furosemide 40 MG/4 ML Vial IV ×2 (09:38→18:47)
[2022-11-08] MEDS: Cyanocobalamin 500 MCG Tablet PO (09:38)
[2022-11-08] MEDS: Sertraline 100 MG Tablet PO (09:38)
[2022-11-08] MEDS: Metoprolol(XL)Succ 50 MG Tablet PO (09:38)
[2022-11-08] MEDS: HEPARIN/D5w 25,000 UNITS 25,000 UNITS/250 ML IV.SOLN. 17 UNITS CONT INF (10:41)
--- NOTE | 2022-11-08 15:08 | PCM.PN.HOSP ---
Subjective Subjective Earlier plan was to discharge but patient required 8 L on ambulation. Mild short of breath on exertion. Objective Data Objective Data Vital Signs: Vital Signs Temp Pulse Resp BP Pulse Ox O2 Del Method O2 Flow Rate 98.0 F 91 20 H 153/91 H 89 Nasal Cannula 3 11/08/22 09:22 11/08/22 11:24 11/08/22 14:52 11/08/22 09:38 11/08/22 14:00 11/08/22 11:25 11/08/22 14:00 FiO2 40 11/08/22 07:38 Oxygen Flow Rate (L/min) [ 8 AMBULATING with Oxygen #3] Oxygen Flow Rate (L/min) [ 6 AMBULATING with Oxygen #2] Oxygen Flow Rate (L/min) [ 4 AMBULATING with Oxygen #1] Oxygen Flow Rate (L/min) [At 3 REST with Oxygen] Oxygen Flow Rate (L/min) 3.5 Oxygen Delivery Method Nasal Cannula Weight: 354 lb 8.053 oz Body Mass Index (BMI) 47.2 Intake & Output: Intake and Output for Last 24 Hours 11/06/22 11/07/22 11/08/22 23:59 23:59 23:59 Intake Total 690 / 690 1316.23 / 1436.23 570 / 570 Output Total 1775 / 2400 2675 / 4025 2100 / 2100 Balance -1085 / -1710 -1358.77 / -2588.77 -1530 / -1530 Lab / Micro Data Result Diagrams: 11/08/22 04:53 11/08/22 04:53 Labs: Laboratory Results - last 24 hr 11/07/22 16:40: APTT 67.4 H 11/08/22 04:53: WBC 14.9 H, RBC 4.88, Hgb 15.6, Hct 52.5, MCV 107.6 H, MCH 32.0, MCHC 29.7 L, RDW Std Deviation 52.4 H, RDW Coeff of Valerie 13.2, Plt Count 181, MPV 10.2, Immature Gran % (Auto) 0.600, Neut % (Auto) 89.0 H, Lymph % (Auto) 5.1 L, [place] % (Auto) 5.2, Eos % (Auto) 0.0, Baso % (Auto) 0.1, Absolute Neuts (auto) 13.2 H, Absolute Lymphs (auto) 0.76 L, Nucleated RBC % 0 11/08/22 04:53: Sodium 134 L, Potassium 4.4, Chloride 86 L, Carbon Dioxide > 45.0 H*, Anion Gap TNP, BUN 20 H, Creatinine 0.60 L, Estim Creat Clear Calc 156.28, Est GFR (MDRD) Af Amer 181, Est GFR (MDRD) Non-Af 150, BUN/Creatinine Ratio 33.4 H, Glucose 124 H, Calcium 9.0 11/08/22 04:53: APTT 64.5 H Micro: Microbiology 11/06/22 09:59 Mucosa - Nasopharyngeal Respiratory Panel (PCR) - Final 11/05/22 22:15 Urine, Clean Catch Legionella Antigen - Final 11/05/22 22:15 Urine, Clean Catch Streptococcus pneumoniae Antigen (M - Final 11/05/22 18:25 Nasal Secretion SARS-CoV-2 & FLU Antigen (Rapid) - Final Physical Exam Narrative Seen and examined Blood pressure is good. Shortness of breath has improved but gets short of breath and hypoxic, requires 8 L ambulation Physical exam General: Alert, Oriented x3, Cooperative HEENT: Atraumatic, PERRLA, EOMI, Normocephalic Oral: BiPAP mask. Neck: Supple, No JVD, Negative Carotid Bruits Lungs: Air entry diminished bilaterally. Bilateral expiratory rhonchi. On BiPAP as needed and at night. Cardiovascular: Sinus rhythm heart rate 81/min., Normal S1, Normal S2, No murmurs Abdomen: Bowel Sounds Present, Soft, Non Tender, Non-Distended : No renal angle tenderness. No suprapubic tenderness. Extremities: Bilateral 2+ below-knee edema, Capillary Refill Less than 3 Seconds Skin: No rashes, No breakdown Musculoskeletal: No Tenderness to Palpation of Joints or Extremities, ROM restricted, muscle strength 4+/5 at major hip and knee joints Neurological: Cranial nerves II-XII grossly intact, DTR 2+/4 and Symmetrical Psych/Mental Status: Flat affect Assessment & Plan Assessment/Plan (1) Acute and chronic respiratory failure with hypoxia: PLAN: Plan Patient was admitted with severe shortness of breath, mild fever and respiratory distress consistent with acute on chronic combined respiratory failure.? Patient on 2 to 3 L of home oxygen. 1.? Acute on chronic combined respiratory failure probably due to COPD exacerbation/pulmonary embolism, pulmonary hypertension and suspected pulmonary infection: Patient is being admitted in PCU.? On BiPAP.? Patient blood pressure was high.? Lactic acid normal.? Patient had fever to 100.9 Fahrenheit.? Tachycardic tachypneic and leukocytosis but does not meet poor more than 2 organ dysfunction therefore sepsis ruled out. acute on chronic combined respiratory failure, acute on chronic respiratory acidosis, pH 7.19, PCO2 more than 137 on ABG.? Chest x-ray was suboptimal quality shows bibasilar atelectasis.? Pneumonia work-up was ordered.? Patient empirically on IV antibiotics.? On Levaquin.? Discontinue azithromycin. Mortuary Operations Manager is consulted.? Patient on AVAPS.? Continue bronchodilator and steroid, incentive spirometry and PEP. 11/07: Chest CTA was done which shows bilateral segmental and subsegmental and peripheral bilateral upper lobes and lower lobes of pulmonary arteries: Discussed with architect in training. Patient is on IV heparin drip. We will switch to Eliquis tomorrow AM. Respiratory status is better. I discussed with the patient that he will need lifelong anticoagulant at this is a second episode of pulmonary embolism and his mother also has history of DVT/PE. Azithromycin discontinued. Rest continue other medications. 11/08: Oxygen requirement was done at the time of discharge. Discharge was canceled patient requires 8 L on exertion. DuoNeb ordered. Advised incentive spirometry and Pep. 2.? Acute exacerbation of? COPD /Obesity Hypoventilation Syndrome: On IV Solu-Medrol as mentioned above.? Rest as mentioned above 3.? Bilateral lower extremity edema with chronic HFpEF: Patient follows up with pediatric speech therapist at outside hospital.? Last echocardiogram on file on 04/13/2021.? Echocardiogram at that time showed stage II diastolic dysfunction. BNP on presentation was 91.8. At home patient on torsemide at home 20 mg daily.? Continue Lasix 40 mg IV push twice daily.? Heart failure core measures including intake and output, fluid restriction less than 1500 mL, daily weight monitoring, kidney and electrolytes monitoring For insulin patient will need follow-up pediatric speech therapist. Will discharge on torsemide 20 mg twice daily and spironolactone. Continue Lasix for now 4.? DVT Prophylaxis Subcutaneous Lovenox ordered. Total time of the visit including total time spent in counseling or coordination of care, (more than 50% of the total time, spent in obtaining medical information from nurses and other ancillary care providers,explaining to the patient about labs, imaging, diagnosis and management of active complex medical conditions), discussion with architect in training, review of labs and imaging is? 40 minutes. Clinical Impression(s) from Imaging Studies Chest X-Ray 11/05/22 18:50 IMPRESSION: Poor inspiration with some bibasilar atelectasis. Chest CTA 11/06/22 10:22 IMPRESSION: Bilateral small multiple pulmonary emboli. Microbiology Past 72 Hours 11/06/22 09:59 Mucosa - Nasopharyngeal Respiratory Panel (PCR) - Final 11/05/22 22:15 Urine, Clean Catch Legionella Antigen - Final 11/05/22 22:15 Urine, Clean Catch Streptococcus pneumoniae Antigen (M - Final 11/05/22 18:25 Nasal Secretion SARS-CoV-2 & FLU Antigen (Rapid) - Final Laboratory Results 11/06/22 20:35: APTT 78.6 H 11/07/22 03:09: WBC 13.9 H, RBC 4.82, Hgb 15.5, Hct 52.1, MCV 108.1 H, MCH 32.2 H, MCHC 29.8 L, RDW Std Deviation 53.7 H, RDW Coeff of Valerie 13.2, Plt Count 198, MPV 10.4, Immature Gran % (Auto) 0.600, Neut % (Auto) 90.6 H, Lymph % (Auto) 4.7 L, [place] % (Auto) 4.0, Eos % (Auto) 0.0, Baso % (Auto) 0.1, Absolute Neuts (auto) 12.6 H, Absolute Lymphs (auto) 0.66 L, Nucleated RBC % 0 11/07/22 03:09: Sodium 134 L, Potassium 4.3, Chloride 85 L, Carbon Dioxide > 45.0 H*, Anion Gap TNP, BUN 18, Creatinine 0.69 L, Estim Creat Clear Calc 135.89, Est GFR (MDRD) Af Amer 153, Est GFR (MDRD) Non-Af 127, BUN/Creatinine Ratio 26.0 H, Glucose 162 H, Calcium 9.1 11/07/22 03:09: APTT 94.9 H* Charges/Coding Visit Charges Inpatient E&M: 34836 Subs Hosp L3
[2022-11-08] MEDS: APIXABAN 5 MG TABLET 10 MG PO (18:47)
[2022-11-08] MEDS: Albuterol 2.5 MG/3 ML VIAL.NEB. INHALATION (21:31)
[2022-11-08] MEDS: Montelukast 10 MG Tablet PO (21:54)
[2022-11-08] MEDS: levoFLOXacin IV 750 MG/150 ML BAG 100 MG IV (21:55)
[2022-11-09] VITALS (12 sets, daily range): BP systolic 132–154; BP diastolic 57–95; PULSE 71–92; RESP 12–20; TEMP 36.4–36.6; O2SAT 3–96
[2022-11-09] MEDS: Albuterol 2.5 MG/3 ML VIAL.NEB. INHALATION (01:44)
[2022-11-09 06:23] LABS: Partial Thromboplast Time 29.2 Seconds (24.1-36.2)
[2022-11-09] MEDS: Ipratropium/Albuterol Sulfate 3 ML AMPUL.NEB INHALATION ×2 (06:52→11:05)
[2022-11-09] MEDS: APIXABAN 5 MG TABLET 10 MG PO (09:14)
[2022-11-09] MEDS: Furosemide 40 MG/4 ML Vial IV (09:15)
[2022-11-09] MEDS: buPROPion (SR) 150 MG Tablet.SA PO (09:15)
[2022-11-09] MEDS: guaiFENesin 1,200 MG Tablet 1200 MG PO (09:15)
[2022-11-09] MEDS: Metoprolol(XL)Succ 50 MG Tablet PO (09:19)
[2022-11-09] MEDS: Aspirin 81 MG TAB.CHEW PO (09:19)
[2022-11-09] MEDS: Spironolactone 25 MG Tablet PO (09:19)
[2022-11-09] MEDS: Cyanocobalamin 500 MCG Tablet PO (09:20)
--- NOTE | 2022-11-09 09:43 | DCINST_ITS ---
Discharge Instructions Diet Discharge Diet: Low fat / Low cholesterol, 1800 Calorie Control Diet, 8 Cup Fluid Restriction and 2000 mg Sodium Diet Dressing / Incision Call your doctor if you observe: Fever of 101 or Higher, Coldness, Increased Pain, Numbness or Tingling, Change in Color, Inability to urinate, Inability to have a bowel movement, Shortness of breath, Dizziness, Fainting spells, Swelling in the ankles, Chest pain, Prolonged hiccupping, Increased palpitations ( irregular heartbeat), Calf discomfort and Uncontrolled pain Follow Up Care Test Results: Test results from this visit will be discussed in further detail at your follow- up appointment, if applicable. Discharge Plan Admission Admit Date/Time: 11/05/22 19:57 Primary Reason for Your Visit: COPD and HF exacerbation, pe Attending Provider: Martin Goetz Primary Care Provider: Yumi Peralta Consulting Providers: Tay Benavides ; Bear Rojas Discharge Orders/Prescriptions Prescriptions: New sennosides-docusate sodium [Stool Softener-Stimulant Laxat] 8.6-50 mg Tablet 2 tab PO BID PRN PRN (Reason: Constipation) Qty: 0 0RF prednisone 20 mg tablet 40 mg PO DAILY 5 Days Qty: 10 0RF Eliquis 5 mg tablet 5 mg PO BID Qty: 74 0RF Rx Instructions: 10 mg (2 TAB) twice daily for 7 days and then 5 mg (1 TAB) twice daily to continue. DVT/PE dose levofloxacin 500 mg tablet 500 mg PO DAILY Qty: 5 0RF torsemide 20 mg tablet 20 mg PO BID Qty: 60 2RF Continued sertraline 100 mg tablet 100 mg PO DAILY (DME) PEP device See Rx Instructions .ROUTE .MEDSUPPLY Qty: 1 0RF Rx Instructions: with training spironolactone 25 MG tablet 25 mg PO BID Label Comments: WATER PILL metoprolol succinate 50 MG tablet extended release 24 hr 50 mg PO DAILY aspirin 81 mg Tablet 81 mg PO DAILY bupropion HCl [Wellbutrin XL] 150 mg Tablet Extended Release 24 Hr 150 mg PO BID acetaminophen 500 mg Tablet 1,000 mg PO Q6H PRN (Reason: Pain) cyanocobalamin (vitamin B-12) 500 MCG tablet 500 mcg PO DAILY budesonide-formoterol [Symbicort] 160-4.5 mcg/actuation HFA aerosol inhaler 2 puff INHALATION BID cholecalciferol (vitamin D3) 5,000 UNIT tablet,disintegrating 5,000 unit PO DAILY Nucala 100 mg/mL auto-injector 300 mg subcut Q4W Rx Instructions: administer as three 100 mg injections at separate sites guaifenesin 1,200 MG tablet extended release 12hr 1,200 mg PO Q12H PRN (Reason: Cough) Qty: 14 0RF albuterol sulfate 2.5 mg /3 mL (0.083 %) solution for nebulization 2.5 mg INHALATION Q4H PRN (Reason: shortness of breath or wheezing) Qty: 360 6RF ipratropium-albuterol 0.5 mg-3 mg(2.5 mg base)/3 mL solution for nebulization 3 ml INHALATION Q4H PRN (Reason: Wheezing) Qty: 360 6RF montelukast [Singulair] 10 mg tablet 10 mg PO QPM Qty: 30 5RF albuterol sulfate [Ventolin HFA] 90 mcg/actuation HFA aerosol inhaler 2 puff INHALATION Q4H PRN (Reason: shortness of breath or wheezing) Qty: 18 6RF Discontinued furosemide 40 mg tablet 40 mg PO DAILY Demadex 20 mg 20 mg PO/SL DAILY Referrals / Follow Up: Tay Benavides MD [Med Staff - Active Staff] - Within 2 Weeks Maxx Hunt MD [Med Staff - Active Staff] - Within 1 Month (for HF, diastolic) Yumi Peralta MD [Primary Care Provider] - Within 1 Week Disposition Disposition (needs filled in before D/C Order can be placed): Home, Self Care
[2022-11-09 10:02] LABS: BUN 23 mg/dL (7-18); BUN/Creat Ratio 38.7 RATIO (10-20); Carbon Dioxide > 45.0 mmol/L (21.0-32.0); Chloride 89 mmol/L (98-107); Creatinine, Serum 0.59 mg/dL (0.70-1.30); EST Glomerular Filtration Rate 151 mL/min (>60); Est Glom Filt Rate - Afr Amer 183 mL/min (>60); Estimated Creatinine Clearance 158.93 ml/min; Glucose 158 mg/dL (74-106); Potassium 4.2 mmol/L (3.5-5.1); Sodium Level 137 mmol/L (136-145)
--- NOTE | 2022-11-09 10:30 | CASEMGMT ---
SW went to patient's room as he had previously told RN ZOAR he wanted to complete Advance Directives. SW introduced self and role at [facility]. Patient confirmed he did want to do documents. SW explained documents to patient. SW asked if he has addresses and phone numbers for the people he would like to list. Patient did not have addresses for two of the people. SW told him he will need those addresses in order for SW to fully complete the documents. He said he could text them and get the addresses. SW obtained names and numbers of people he wanted to list. SERJIO told patient SERJIO will stop by a little later to finish paperwork with him. Norah Lee [employer]
[2022-11-09] MEDS: Cholecalciferol (Vit D3) 125 MCG CAPSULE (5,000 UNITS) PO (10:44)
[2022-11-09] MEDS: Sertraline 100 MG Tablet PO (10:44)
--- NOTE | 2022-11-09 11:45 | PCM.DC.SUM ---
Providers Date of Admission: 11/05/22 Date of Discharge: 11/08/22 Primary Care Physician: Dr. Yumi Peralta MD Consultations 11/05/22 21:11 Consult: Health Physicist / Pulmonary Medicine Routine Consulting Provider: Tay Benavides Reason for Consult: Acute on chronic respiratory failure EMERGENT Consult: No MD Notified: Yes Date Notified: 11/05/22 Time Notified: 20:07 Method of Notification: Text Reason For Visit: ACUTE ON CHRONIC RESP FAILURE WITH HYPOXIA AND HYP Diagnosis Discharge Diagnosis (1) Acute and chronic respiratory failure with hypoxia: Status: Chronic Code(s): J96.21 - Acute and chronic respiratory failure with hypoxia Medications at Discharge Home Medications spironolactone 25 mg tablet 25 mg PO BID bp 12/02/15 metoprolol succinate 50 mg tablet,extended release 24 hr 50 mg PO DAILY Heart 09/13/18 aspirin 81 mg tablet 81 mg PO DAILY Check with primary doctor 06/10/21 bupropion HCl 150 mg 24 hr tablet, extended release (Wellbutrin XL) 150 mg PO BID Check with primary doctor 10/11/21 acetaminophen 500 mg tablet 1,000 mg PO Q6H PRN Pain 11/04/21 budesonide-formoterol HFA 160 mcg-4.5 mcg/actuation aerosol inhaler (Symbicort) 2 puff inhalation BID BREATHING 11/08/21 cholecalciferol (vitamin D3) 125 mcg (5,000 unit) disintegrating tablet 5,000 unit PO DAILY SUPPLEMENT 11/08/21 cyanocobalamin (vitamin B-12) 500 mcg tablet 500 mcg PO DAILY SUPPLEMENT 11/08/21 PEP device #1 ea 01/23/22 sertraline 100 mg tablet 100 mg PO DAILY Check with primary doctor 01/23/22 albuterol sulfate 2.5 mg/3 mL (0.083 %) solution for nebulization 2.5 mg (3 mL) inhalation Q4H PRN shortness of breath or wheezing #360 mL 04/20/22 ipratropium 0.5 mg-albuterol 3 mg (2.5 mg base)/3 mL nebulization soln 3 ml inhalation Q4H PRN Wheezing #360 mL 04/20/22 montelukast 10 mg tablet (Singulair) 10 mg PO QPM COPD #30 tabs 06/30/22 albuterol sulfate 90 mcg/actuation aerosol inhaler (Ventolin HFA) 2 puff inhalation Q4H PRN shortness of breath or wheezing #18 grams 09/08/22 mepolizumab 100 mg/mL subcutaneous auto-injector (Nucala) 300 mg subcut Q4W Check with primary doctor 11/05/22 apixaban 5 mg tablet (Eliquis) 5 mg PO BID #74 tabs 11/08/22 guaifenesin 1,200 mg tablet, extended release 12 hr 1,200 mg PO Q12H PRN Cough #14 tabs 11/08/22 levofloxacin 500 mg tablet 500 mg PO DAILY #5 tabs 11/08/22 prednisone 20 mg tablet 40 mg PO DAILY 5 days #10 tabs 11/08/22 sennosides 8.6 mg-docusate sodium 50 mg tablet (Stool Softener-Stimulant Laxative) 2 tab PO BID PRN PRN Constipation #0 tabs 11/08/22 torsemide 20 mg tablet 20 mg PO BID #60 tabs 11/08/22 Hospital Course Summary of Care Provided Hospital Course: Patient was admitted with severe shortness of breath, mild fever and respiratory distress consistent with acute on chronic combined respiratory failure.? Patient on 2 to 3 L of home oxygen. 1.? Acute on chronic combined respiratory failure probably due to COPD exacerbation/pulmonary embolism, pulmonary hypertension and bibasilar pneumonia, specific organism undetermined: Patient is being admitted in PCU.? On BiPAP.? Patient blood pressure was high.? Lactic acid normal.? Patient had fever to 100.9 Fahrenheit.? Tachycardic tachypneic and leukocytosis but does not meet poor more than 2 organ dysfunction therefore sepsis ruled out. acute on chronic combined respiratory failure, acute on chronic respiratory acidosis, pH 7.19, PCO2 more than 137 on ABG.? Chest x-ray was suboptimal quality shows bibasilar atelectasis.? Pneumonia work-up was ordered.? Patient empirically on IV antibiotics.? On Levaquin.? Discontinue azithromycin. Health Physicist is consulted.? Patient on AVAPS.? Continue bronchodilator and steroid, incentive spirometry and PEP. 11/07: Chest CTA was done which shows bilateral segmental and subsegmental and peripheral bilateral upper lobes and lower lobes of pulmonary arteries: Discussed with floriculture professor. Patient is on IV heparin drip. We will switch to Eliquis tomorrow AM. Respiratory status is better. I discussed with the patient that he will need lifelong anticoagulant at this is a second episode of pulmonary embolism and his mother also has history of DVT/PE. Azithromycin discontinued. Rest continue other medications. Patient mentioned that he had PE couple years ago probably to 3 years ago and had Lovenox. 11/08: Patient has oxygen and CPAP machine at home. Patient has DuoNeb nebulization and albuterol inhaler at home. Follows Dr. Benavides. Prescriptions given for prednisone 40 mg daily for 5 days, Mucinex, Levaquin 500 mg daily to complete a total of 7 days and apixaban 10 mg twice daily for 7 days and then 5 mg twice daily to continue. Patient urinary antigens, COVID-19, respiratory panel negative. 2.? Acute exacerbation of? COPD /Obesity Hypoventilation Syndrome: On IV Solu-Medrol as mentioned above.? Rest as mentioned above 3.? 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 Last echocardiogram on file on 04/13/2021.? Echocardiogram at that time showed stage II diastolic dysfunction. BNP on presentation was 91.8. At home patient on torsemide at home 20 mg daily.? Continue Lasix 40 mg IV push twice daily.? Heart failure core measures including intake and output, fluid restriction less than 1500 mL, daily weight monitoring, kidney and electrolytes monitoring 11/08: Advised follow-up with Dr. Hunt. Patient is discharged on torsemide 20 mg twice daily and spironolactone. 4.? DVT Prophylaxis Subcutaneous Lovenox ordered. Discharge medication reconciliation done. Discharge follow-up instructions completed. Discharge process discussed with the patient and all questions were answered to patient's satisfaction. Total time spent, exact 35 minutes on discharge meds reconciliation, examination, coordination of care with nurses and ancillary staff, review of imaging and blood test and discussion with the patient on follow-up instructions. Microbiology Past 72 Hours 11/06/22 09:59 Mucosa - Nasopharyngeal Respiratory Panel (PCR) - Final 11/05/22 22:15 Urine, Clean Catch Legionella Antigen - Final 11/05/22 22:15 Urine, Clean Catch Streptococcus pneumoniae Antigen (M - Final 11/05/22 18:25 Nasal Secretion SARS-CoV-2 & FLU Antigen (Rapid) - Final Laboratory Results 11/07/22 16:40: APTT 67.4 H 11/08/22 04:53: WBC 14.9 H, RBC 4.88, Hgb 15.6, Hct 52.5, MCV 107.6 H, MCH 32.0, MCHC 29.7 L, RDW Std Deviation 52.4 H, RDW Coeff of Valerie 13.2, Plt Count 181, MPV 10.2, Immature Gran % (Auto) 0.600, Neut % (Auto) 89.0 H, Lymph % (Auto) 5.1 L, [place] % (Auto) 5.2, Eos % (Auto) 0.0, Baso % (Auto) 0.1, Absolute Neuts (auto) 13.2 H, Absolute Lymphs (auto) 0.76 L, Nucleated RBC % 0 11/08/22 04:53: Sodium 134 L, Potassium 4.4, Chloride 86 L, Carbon Dioxide > 45.0 H*, Anion Gap TNP, BUN 20 H, Creatinine 0.60 L, Estim Creat Clear Calc 156.28, Est GFR (MDRD) Af Amer 181, Est GFR (MDRD) Non-Af 150, BUN/Creatinine Ratio 33.4 H, Glucose 124 H, Calcium 9.0 11/08/22 04:53: APTT 64.5 H Clinical Impression(s) from Imaging Studies Chest X-Ray 11/05/22 18:50 IMPRESSION: Poor inspiration with some bibasilar atelectasis. Chest CTA 11/06/22 10:22 IMPRESSION: Bilateral small multiple pulmonary emboli. Microbiology Past 72 Hours 11/06/22 09:59 Mucosa - Nasopharyngeal Respiratory Panel (PCR) - Final 11/05/22 22:15 Urine, Clean Catch Legionella Antigen - Final 11/05/22 22:15 Urine, Clean Catch Streptococcus pneumoniae Antigen (M - Final 11/05/22 18:25 Nasal Secretion SARS-CoV-2 & FLU Antigen (Rapid) - Final Laboratory Results 11/06/22 20:35: APTT 78.6 H 11/07/22 03:09: WBC 13.9 H, RBC 4.82, Hgb 15.5, Hct 52.1, MCV 108.1 H, MCH 32.2 H, MCHC 29.8 L, RDW Std Deviation 53.7 H, RDW Coeff of Valerie 13.2, Plt Count 198, MPV 10.4, Immature Gran % (Auto) 0.600, Neut % (Auto) 90.6 H, Lymph % (Auto) 4.7 L, [place] % (Auto) 4.0, Eos % (Auto) 0.0, Baso % (Auto) 0.1, Absolute Neuts (auto) 12.6 H, Absolute Lymphs (auto) 0.66 L, Nucleated RBC % 0 11/07/22 03:09: Sodium 134 L, Potassium 4.3, Chloride 85 L, Carbon Dioxide > 45.0 H*, Anion Gap TNP, BUN 18, Creatinine 0.69 L, Estim Creat Clear Calc 135.89, Est GFR (MDRD) Af Amer 153, Est GFR (MDRD) Non-Af 127, BUN/Creatinine Ratio 26.0 H, Glucose 162 H, Calcium 9.1 11/07/22 03:09: APTT 94.9 H* Physical Exam Narrative Seen and examined on the day of discharge Blood pressure is good. Shortness of breath has improved. Physical exam General: Alert, Oriented x3, Cooperative HEENT: Atraumatic, PERRLA, EOMI, Normocephalic Oral: BiPAP mask. Neck: Supple, No JVD, Negative Carotid Bruits Lungs: Air entry diminished bilaterally. Bilateral expiratory rhonchi. On BiPAP as needed and at night. Cardiovascular: Sinus rhythm heart rate 81/min., Normal S1, Normal S2, No murmurs Abdomen: Bowel Sounds Present, Soft, Non Tender, Non-Distended : No renal angle tenderness. No suprapubic tenderness. Extremities: Bilateral 2+ below-knee edema, Capillary Refill Less than 3 Seconds Skin: No rashes, No breakdown Musculoskeletal: No Tenderness to Palpation of Joints or Extremities, ROM restricted, muscle strength 4+/5 at major hip and knee joints Neurological: Cranial nerves II-XII grossly intact, DTR 2+/4 and Symmetrical Psych/Mental Status: Flat affect Weight / BMI Weight Weight: 354 lb 8.053 oz Body Mass Index (BMI) 47.2 ABG / Lab / Microbiology Data Result Diagrams: 11/08/22 04:53 11/08/22 04:53 Laboratory: Laboratory Results - last 24 hr 11/07/22 16:40: APTT 67.4 H 12/14/22 04:53: WBC 14.9 H, RBC 4.88, Hgb 15.6, Hct 52.5, MCV 107.6 H, MCH 32.0, MCHC 29.7 L, RDW Std Deviation 52.4 H, RDW Coeff of Valerie 13.2, Plt Count 181, MPV 10.2, Immature Gran % (Auto) 0.600, Neut % (Auto) 89.0 H, Lymph % (Auto) 5.1 L, [place] % (Auto) 5.2, Eos % (Auto) 0.0, Baso % (Auto) 0.1, Absolute Neuts (auto) 13.2 H, Absolute Lymphs (auto) 0.76 L, Nucleated RBC % 0 11/08/22 04:53: Sodium 134 L, Potassium 4.4, Chloride 86 L, Carbon Dioxide > 45.0 H*, Anion Gap TNP, BUN 20 H, Creatinine 0.60 L, Estim Creat Clear Calc 156.28, Est GFR (MDRD) Af Amer 181, Est GFR (MDRD) Non-Af 150, BUN/Creatinine Ratio 33.4 H, Glucose 124 H, Calcium 9.0 11/08/22 04:53: APTT 64.5 H Microbiology: Microbiology 11/06/22 09:59 Mucosa - Nasopharyngeal Respiratory Panel (PCR) - Final 11/05/22 22:15 Urine, Clean Catch Legionella Antigen - Final 11/05/22 22:15 Urine, Clean Catch Streptococcus pneumoniae Antigen (M - Final 11/05/22 18:25 Nasal Secretion SARS-CoV-2 & FLU Antigen (Rapid) - Final D/C Instructions Discharge Diet: Low fat / Low cholesterol, 1800 Calorie Control Diet, 8 Cup Fluid Restriction and 2000 mg Sodium Diet Call your doctor if you observe: Fever of 101 or Higher, Coldness, Increased Pain, Numbness or Tingling, Change in Color, Inability to urinate, Inability to have a bowel movement, Shortness of breath, Dizziness, Fainting spells, Swelling in the ankles, Chest pain, Prolonged hiccupping, Increased palpitations (irregular heartbeat), Calf discomfort and Uncontrolled pain Meaningful Use Info Meaningful Use Diagnoses (Choose all that apply): None applicable Discharge Plan Admission Admit Date/Time: 12/11/22 19:57 Primary Reason for Your Visit: COPD andexacerbation, pe, chronic heart failure Attending Provider: Martin Goetz Primary Care Provider: Yumi Peralta Consulting Providers: Tay Benavides ; Bear Rojas Discharge Orders/Prescriptions Prescriptions: New sennosides-docusate sodium [Stool Softener-Stimulant Laxat] 8.6-50 mg Tablet 2 tab PO BID PRN PRN (Reason: Constipation) Qty: 0 0RF prednisone 20 mg tablet 40 mg PO DAILY 5 Days Qty: 10 0RF Eliquis 5 mg tablet 5 mg PO BID Qty: 74 0RF Rx Instructions: 10 mg (2 TAB) twice daily for 7 days and then 5 mg (1 TAB) twice daily to continue. DVT/PE dose levofloxacin 500 mg tablet 500 mg PO DAILY Qty: 5 0RF torsemide 20 mg tablet 20 mg PO BID Qty: 60 2RF Continued sertraline 100 mg tablet 100 mg PO DAILY (DME) PEP device See Rx Instructions .ROUTE .MEDSUPPLY Qty: 1 0RF Rx Instructions: with training spironolactone 25 MG tablet 25 mg PO BID Label Comments: WATER PILL metoprolol succinate 50 MG tablet extended release 24 hr 50 mg PO DAILY aspirin 81 mg Tablet 81 mg PO DAILY bupropion HCl [Wellbutrin XL] 150 mg Tablet Extended Release 24 Hr 150 mg PO BID acetaminophen 500 mg Tablet 1,000 mg PO Q6H PRN (Reason: Pain) cyanocobalamin (vitamin B-12) 500 MCG tablet 500 mcg PO DAILY budesonide-formoterol [Symbicort] 160-4.5 mcg/actuation HFA aerosol inhaler 2 puff INHALATION BID cholecalciferol (vitamin D3) 5,000 UNIT tablet,disintegrating 5,000 unit PO DAILY Nucala 100 mg/mL auto-injector 300 mg subcut Q4W Rx Instructions: administer as three 100 mg injections at separate sites guaifenesin 1,200 MG tablet extended release 12hr 1,200 mg PO Q12H PRN (Reason: Cough) Qty: 14 0RF albuterol sulfate 2.5 mg /3 mL (0.083 %) solution for nebulization 2.5 mg INHALATION Q4H PRN (Reason: shortness of breath or wheezing) Qty: 360 6RF ipratropium-albuterol 0.5 mg-3 mg(2.5 mg base)/3 mL solution for nebulization 3 ml INHALATION Q4H PRN (Reason: Wheezing) Qty: 360 6RF montelukast [Singulair] 10 mg tablet 10 mg PO QPM Qty: 30 5RF albuterol sulfate [Ventolin HFA] 90 mcg/actuation HFA aerosol inhaler 2 puff INHALATION Q4H PRN (Reason: shortness of breath or wheezing) Qty: 18 6RF Discontinued furosemide 40 mg tablet 40 mg PO DAILY Demadex 20 mg 20 mg PO/SL DAILY Referrals / Follow Up: Tay Benavides MD [Med Staff - Active Staff] - Within 2 Weeks Maxx Hunt MD [Med Staff - Active Staff] - Within 1 Month (for HF, diastolic) Yumi Peralta MD [Primary Care Provider] - Within 1 Week Disposition Disposition (needs filled in before D/C Order can be placed): Home, Self Care Charges/Coding Visit Charges Inpatient E&M: 63682 Disch Hosp
--- NOTE | 2022-11-09 11:50 | CASEMGMT ---
RN ZORA updated that patient will be discharged today and is requiring 8lpm with ambulation. New script received for home oxygen. FINA BLAKELY in to discuss discharge plans with patient. Patient states will get off work at 3:00 and be here at 3:30. RN ZORA called Ruben at [facility] to update regarding need for bigger concentrator at home. FINA BLAKELY coordinated with Ruben to have rental car ferry driver meet patient around 4:30 at home. Ruben updated that patient does not have full portable tank at home and Ruben states to use [employer] portable tank from stock at hospital. RN ZORA sent referral to [facility] via [facility]. RN ZORA called [facility] to inquire about cost of Eliquis. Patient has copay of $47. RN ZORA in to provide patient with savings card. RN ZORA updated patient regarding coordination with [facility] for equipment delivery. Patient voiced understanding. Patient had no further questions or concerns.
--- NOTE | 2022-11-09 13:13 | CASEMGMT ---
SW went back to patient's room to finish Advance Directives, but patient was sleeping. SERJIO will check back again later before patient is discharged. Norah JACKSON
--- NOTE | 2022-11-09 16:23 | CASEMGMT ---
SW finished Healthcare Power of Trading Analyst and Healthcare Living Will papers with patient. Copies were made and given to patient along with originals. A copy of each was also placed in patient's chart. Norah JACKSON
== END 2022-11-09 16:38 | disposition home or self-care (01) | DRG 189 ==
LOC: ED 20:07 → PCU 20:33
PROVIDERS: Internal Medicine Critical Care Medicine; Admitting Provider Hospitalist; Emergency Provider Emergency Medicine; PCP Family Medicine; Visit Provider Internal Medicine
DX: J96.21 Acute and chronic respiratory failure with hypoxia (principal); I26.99 Other pulmonary embolism without acute cor pulmonale; J18.9 Pneumonia, unspecified organism; E87.29 Other acidosis; E66.2 Morbid (severe) obesity with alveolar hypoventilation; I50.32 Chronic diastolic (congestive) heart failure; J44.0 Chronic obstructive pulmonary disease with (acute) lower respiratory infection; Z68.42 Body mass index [BMI] 45.0-49.9, adult; J44.1 Chronic obstructive pulmonary disease with (acute) exacerbation; J98.11 Atelectasis; I27.20 Pulmonary hypertension, unspecified; I11.0 Hypertensive heart disease with heart failure; J96.22 Acute and chronic respiratory failure with hypercapnia; I89.0 Lymphedema, not elsewhere classified; Z82.3 Family history of stroke; Z79.82 Long term (current) use of aspirin; Z87.891 Personal history of nicotine dependence; Z79.51 Long term (current) use of inhaled steroids
CPT/HCPCS: 36415; 36600; 71045; 71275; 80048; 82803; 82962; 83605; 83880; 84145; 84484; 85025; 85610; 85730; 87428; 87449; 87633; 93005; 94002; 94003; 94640; 94667; 94668; 94762; 99251; 99285; J7040; Q9967; A4216; G0463; J1940

== ENCOUNTER 2023-01-01 10:13 | Inpatient (IN) | payer MEDICARE, SELFPAY ==
[2023-01-01] VITALS (17 sets, daily range): BP systolic 115–158; BP diastolic 55–100; PULSE 80–112; RESP 12–24; TEMP 36.1–36.6; O2SAT 89–99; BMI 45.1
--- NOTE | 2023-01-01 10:37 | EKG12_ITS ---
Test Reason : SOB Blood Pressure : / mmHG Vent. Rate : 095 BPM Atrial Rate : 095 BPM P-R Int : 144 ms QRS Dur : 138 ms QT Int : 386 ms P-R-T Axes : 065 104 038 degrees QTc Int : 485 ms Normal sinus rhythm Right bundle branch block Abnormal ECG Confirmed by INES STEVENS, ADRY ([id number]), editor greeting card SHANTI FINE ([id number]) on 01/02/2023 8:34:18 AM Referred By: TL Confirmed By:ADRY CHACON MD
--- NOTE | 2023-01-01 10:39 | ED.VIS.DYS ---
HPI History of Present Illness Chief Complaint: Shortness of Breath Informant: patient and spouse/S.O. Narrative Narrative: 3-day history worsening dyspnea with wheeze chronic nonproductive cough. No fever states has headaches. No myalgias. No nausea or vomiting. Chronic oxygen 3 to 4 L during the day he wears a CPAP at night. He is not a diabetic. Denies orthopnea however states sleeps on his side. Does have history of CHF however denies any increased leg swelling that is typical for heart failure. He was diagnosed with pulmonary embolism the end of October he is on Eliquis with no missed doses. There is no provoking factors per history. Nonvaccinated for COVID, states has not had COVID infection in the past. Prior similar symptoms: Yes PFSH PFSH Medical History (Updated 01/01/23 @ 16:[address] Michael Hernandez, DO) Acute respiratory failure with hypoxia and hypercapnia Anxiety BiPAP (biphasic positive airway pressure) dependence Blood disorder Cardiology follow-up encounter Chronic hypoxemic respiratory failure Closed fracture dislocation of joint of left lower extremity Closed fracture of left tibial plateau Congestive heart failure Congestive heart failure (CHF) COPD (chronic obstructive pulmonary disease) Depression Former smoker History of echocardiogram History of edema History of pain when walking HTN (hypertension) Hypertension Incarcerated umbilical hernia Obesities, morbid Obesity hypoventilation syndrome On home oxygen therapy LAYLA (obstructive sleep apnea) Other specified injury of left quadriceps muscle, fascia and tendon, initial encounter Pulmonary embolism Pulmonary HTN Pulmonary hypertension Seasonal allergies Stage 4 very severe COPD by GOLD classification Stage 4 very severe COPD by GOLD classification Tobacco dependence Uses wheelchair Home Medications spironolactone 25 mg tablet 25 mg PO BID bp 12/02/15 [History Last Taken 01/01/23] metoprolol succinate 50 mg tablet,extended release 24 hr 50 mg PO BID Heart 09/13/18 [History Last Taken 01/01/23] bupropion HCl 150 mg 24 hr tablet, extended release (Wellbutrin XL) 150 mg PO BID Check with primary doctor 10/11/21 [History Last Taken 01/01/23] acetaminophen 500 mg tablet 1,000 mg PO Q6H PRN Pain 11/04/21 [History Last Taken 11/07/21 20:00] cyanocobalamin (vitamin B-12) 500 mcg tablet 500 mcg PO DAILY SUPPLEMENT 11/08/21 [History Last Taken 01/01/23] sertraline 100 mg tablet 100 mg PO DAILY Check with primary doctor 01/23/22 [History Last Taken 01/01/23] albuterol sulfate 2.5 mg/3 mL (0.083 %) solution for nebulization 2.5 mg (3 mL) inhalation Q4H PRN shortness of breath or wheezing #360 mL 04/20/22 [Rx Last Taken 01/01/23] ipratropium 0.5 mg-albuterol 3 mg (2.5 mg base)/3 mL nebulization soln 3 ml inhalation Q4H PRN Wheezing #360 mL 04/20/22 [Rx Last Taken 01/01/23] montelukast 10 mg tablet (Singulair) 10 mg PO QPM COPD #30 tabs 06/30/22 [Rx Last Taken 12/31/22] albuterol sulfate 90 mcg/actuation aerosol inhaler (Ventolin HFA) 2 puff inhalation Q4H PRN shortness of breath or wheezing #18 grams 09/08/22 [Rx Last Taken 01/01/23] mepolizumab 100 mg/mL subcutaneous auto-injector (Nucala) 300 mg subcut Q4W Check with primary doctor 11/05/22 [History Last Taken 12/10/22] apixaban 5 mg tablet (Eliquis) 5 mg PO BID #74 tabs 11/08/22 [Rx Last Taken 01/01/23] guaifenesin 1,200 mg tablet, extended release 12 hr 1,200 mg PO Q12H PRN Cough #14 tabs 11/08/22 [Rx Last Taken 12/31/22] losartan 25 mg tablet 25 mg PO DAILY #30 tabs 11/08/22 [Rx Last Taken 01/01/23] sennosides 8.6 mg-docusate sodium 50 mg tablet (Stool Softener-Stimulant Laxative) 2 tab PO BID PRN PRN Constipation #0 tabs 11/08/22 [Rx Last Taken Unknown] torsemide 20 mg tablet 20 mg PO BID #60 tabs 11/08/22 [Rx Last Taken 12/31/22] budesonide-formoterol HFA 160 mcg-4.5 mcg/actuation aerosol inhaler (Symbicort) 2 puff inhalation BID BREATHING #10.2 grams 12/04/22 [Rx Last Taken 01/01/23] furosemide 40 mg tablet 40 mg PO DAILY FLUID 01/01/23 [History Last Taken 12/31/22] [id number]-[id number] acid-vit K-lycop 400 mcg-20 mcg-370 mcg tablet (Men's 50 Plus Multivitamin) 1 tab PO DAILY SUPPLEMENT 01/01/23 [History Last Taken 12/31/22] Allergy/AdvReac Type Severity Reaction Status Date / Time clarithromycin [From Biaxin] Allergy Hives Verified 01/01/23 10:15 Penicillins Allergy Hives Verified 01/01/23 10:15 Family History Mother Diabetes Breast cancer Heart disease Hypertension COPD (chronic obstructive pulmonary disease) Asthma Father Hypertension CVA (cerebral vascular accident) Surgical History History of hernia repair (~08/2018) History of tonsillectomy History of tooth extraction Hx of cardiac cath Social History (Updated 01/01/23 @ 13:[address] Mely Lyons DO) household members: spouse Smoking Status: Current some day smoker tobacco type: cigarettes how long ago did patient quit smoking: Patient admits to smoking 1 cigarette to 2 cigarettes weekly second hand exposure: Yes quit status: has quit before alcohol intake: never substance use type: does not use ROS ROS ED Constitutional Constitutional ED: Denies chills, fever(s) or sweats Eyes Eyes: Denies change in vision ENT ENT ED: Denies dysphagia or sore throat Cardiovascular Cardiovascular: Denies chest pain, leg edema, palpitations or racing heartbeat Respiratory/Chest Respiratory/Chest: Reports cough and dyspnea; Denies dyspnea on exertion Gastrointestinal Gastrointestinal: Denies abdominal pain, diarrhea, nausea or vomiting Genitourinary Genitourinary ED: Denies dysuria, hematuria or urinary frequency Musculoskeletal Musculoskeletal: Denies back pain, extremity pain or neck pain Integumentary Denies rash or wounds Neurologic Neurologic: Reports headache(s); Denies paresthesias or weakness EXAM Physical Exam Const Vital Signs: 01/01/23 10:13 01/01/23 11:00 01/01/23 10:56 Temperature 97.9 F Temperature Source Temporal Pulse Rate 95 80 Respiratory Rate 22 H 21 H 18 Respiratory Effort Respiratory Depth Respiratory Pattern Tachypnea Blood Pressure 135/100 H Blood Pressure Mean 111 Pulse Ox 96 95 Oxygen Delivery Method Nasal Cannula Room Air Oxygen Flow Rate (L/min) 4 4 Fraction of Inspired Oxygen (FIO2) 01/01/23 11:00 01/01/23 11:01 01/01/23 12:28 Temperature Temperature Source Pulse Rate 88 Respiratory Rate 20 H Respiratory Effort Short of Breath Respiratory Depth Normal Respiratory Pattern Normal Blood Pressure 141/84 H Blood Pressure Mean 103 Pulse Ox 95 92 Oxygen Delivery Method Nasal Cannula Nasal Cannula Nasal Cannula Oxygen Flow Rate (L/min) 4 4 4 Fraction of Inspired Oxygen (FIO2) 01/01/23 13:23 01/01/23 14:27 01/01/23 15:15 Temperature 97.9 F Temperature Source Temporal Pulse Rate 89 112 H 97 Respiratory Rate 13 19 H 19 H Respiratory Effort Respiratory Depth Respiratory Pattern Normal Blood Pressure 158/90 H 136/80 H Blood Pressure Mean 112 98 Pulse Ox 94 95 98 Oxygen Delivery Method Bi-pap Oxygen Flow Rate (L/min) Fraction of Inspired Oxygen (FIO2) 40 Positive well nourished and well developed Constitutional Narrative: 4 L nasal cannula no respiratory distress. General Appearance ED: well developed and NAD HEENT Reports moist mucous membranes normocephalic and atraumatic Eyes PERRL, EOMs intact bilaterally and conjunctivae normal General Eye ED: Yes normal appearance of both eyes Neck no lymphadenopathy and supple General: Negative for tenderness Chest Wall Chest: Negative for tenderness Resp Resp Narrative: Faint expiratory wheeze on the left side. Symmetric breath sounds. Effort and Inspection: symmetric chest movement; Negative for respiratory distress Cardio regular rate, regular rhythm and no murmurs Peripheral Pulses: pulses 2+ throughout GI normal to inspection, nondistended, normoactive bowel sounds and non-tender Palpation: Negative for guarding or rebound tenderness present Back/Spine no CVA tenderness and no thoracic nor lumbar tenderness Extremity normal to inspection General Extremety ED: Negative for edema or tenderness General Extremity: Negative for edema Neuro oriented x3, CN's II-XII intact bilaterally and no sensory deficits noted Sensorium / Orientation: awake and alert Skin no rashes or lesions noted and no wounds MDM MDM MDM Narrative Medical decision making narrative: Interventions / MDM: Differential diagnosis: COPD exacerbation, viral syndrome, COVID versus influenza, pneumothorax Diagnosis considered but do not suspect: Pulmonary embolism, less likely worsened due to being reportedly compliant with his Eliquis. My EKG interpretation: Normal sinus rhythm chronic right bundle branch block. Imaging independently reviewed and interpreted by myself: Chest x-ray: No acute process External documents reviewed: N/A Test considered but not ordered:N/A ED course: Patient faint expiratory wheezing on exam no respiratory distress. Started on steroids aerosol treatments. Chest x-ray interpreted myself no acute process. This also read by radiology. COVID influenza negative white count 11.6 hemoglobin 15. Creatinine 0.66. BNP 47. CO2 greater than 45. Patient alert and oriented x3, discussed with him he thinks his baseline CO2 is normal around 60s followed by Dr. Benavides. Re-evaluation: Improving breath sounds no distress, attempted ambulating with a pulse ox however dropped to the 70% range per nursing, improve with increasing oxygen. ABG will be obtained for further evaluation. Will discuss with hospitalist team for admission. ABG returned hypercapnic's PCO2 at 103, PaO2 of 68. Discussed with hospitalist to evaluate his baseline CO2 was around 80-90. Due to progressive symptoms brought in the ED will place him on a BiPAP to help with his hypercapnia and prevention of progression. He is admitted to PCU for further inpatient management. Disposition discussed with patient/family/significant other: Hospitalist, Dr. Mely Lyons Case discussed with consulting clinician: N/A Lab Data Attestation: I reviewed the patient's lab results. Labs: Laboratory Results - last 24 hr 01/01/23 01/01/23 01/01/23 10:31 10:31 10:31 WBC 11.6 H RBC 4.76 Hgb 15.1 Hct 50.0 MCV 105.0 H MCH 31.7 MCHC 30.2 L RDW Std Deviation 49.5 H RDW Coeff of Valerie 12.7 Plt Count 179 MPV 10.4 Immature Gran % (Auto) 0.600 Neut % (Auto) 80.9 H Lymph % (Auto) 11.8 L [place] % (Auto) 6.0 Eos % (Auto) 0.3 Baso % (Auto) 0.4 Absolute Neuts (auto) 9.3 H Absolute Lymphs (auto) 1.36 Nucleated RBC % 0 Sodium 138 Potassium 3.6 Chloride 87 L Carbon Dioxide > 45.0 H* Anion Gap TNP BUN 14 Creatinine 0.66 L Estim Creat Clear Calc 140.44 Est GFR (MDRD) Af Amer 161 Est GFR (MDRD) Non-Af 133 BUN/Creatinine Ratio 21.1 H Glucose 147 H Hemoglobin A1c Calcium 9.4 B-Natriuretic Peptide 47.0 01/01/23 14:24 WBC RBC Hgb Hct MCV MCH MCHC RDW Std Deviation RDW Coeff of Valerie Plt Count MPV Immature Gran % (Auto) Neut % (Auto) Lymph % (Auto) [place] % (Auto) Eos % (Auto) Baso % (Auto) Absolute Neuts (auto) Absolute Lymphs (auto) Nucleated RBC % Sodium Potassium Chloride Carbon Dioxide Anion Gap BUN Creatinine Estim Creat Clear Calc Est GFR (MDRD) Af Amer Est GFR (MDRD) Non-Af BUN/Creatinine Ratio Glucose Hemoglobin A1c 5.7 H Calcium B-Natriuretic Peptide ABG Data ABG results: ABG 01/01/23 12:52 Specimen Type ART Sample Site L Radial pH 7.33 L Bicarbonate Actual 54.7 H Total CO2 > 50 Base Excess 29 H O2 Saturation 90 L ABG pCO2 103.6 H* ABG pO2 69 L Tal Test Positive O2 Delivery Device Cannula Liter Flow 4.0 Crit Call To/Read Back Yes Blood Gas Notified Whom dr hernandez Radiography Diagnostic Testing: Clinical Impression(s) from Imaging Studies Chest X-Ray 01/01/23 11:00 IMPRESSION: Hyperinflation and changes compatible with COPD. Prominence of the central pulmonary arteries bilaterally suggestive of possible component of pulmonary hypertension. Electronically Signed: Arsenio Funk MD at 11:19 EST Reading Location ID and State: [facility] / [place] , Service support , EKG Initial EKG: Attestation: I personally reviewed and interpreted this EKG as follows: Comments: Sinus rate of 95, no ST or T wave changes right bundle branch block similar to findings from October 2022. Critical Care Time Critical Care Time: Yes Critical care time (excluding procedures): 30-74 minutes, Discussing w/Patient &/or Family/[employer] Operator, Discussing w/Consultants, Arranging Admission or Transfer, Performing Direct Patient Care at Bedside and - (35 minutes) Discharge Plan Triage Chief Complaint: Shortness of Breath ED Provider: Le,Michael Dx/Rx/DC Orders Clinical Impression: Stage 4 very severe COPD by GOLD classification, LAYLA (obstructive sleep apnea), Hypoxia, Acute on chronic respiratory failure with hypoxia and hypercapnia Prescriptions: No Action sertraline 100 mg tablet 100 mg PO DAILY spironolactone 25 MG tablet 25 mg PO BID Label Comments: WATER PILL metoprolol succinate 50 MG tablet extended release 24 hr 50 mg PO BID bupropion HCl [Wellbutrin XL] 150 mg Tablet Extended Release 24 Hr 150 mg PO BID acetaminophen 500 mg Tablet 1,000 mg PO Q6H PRN (Reason: Pain) cyanocobalamin (vitamin B-12) 500 MCG tablet 500 mcg PO DAILY Nucala 100 mg/mL auto-injector 300 mg subcut Q4W Rx Instructions: administer as three 100 mg injections at separate sites sennosides-docusate sodium [Stool Softener-Stimulant Laxat] 8.6-50 mg Tablet 2 tab PO BID PRN PRN (Reason: Constipation) Qty: 0 0RF Eliquis 5 mg tablet 5 mg PO BID Qty: 74 0RF Rx Instructions: 10 mg (2 TAB) twice daily for 7 days and then 5 mg (1 TAB) twice daily to continue. DVT/PE dose torsemide 20 mg tablet 20 mg PO BID Qty: 60 2RF guaifenesin 1,200 MG tablet extended release 12hr 1,200 mg PO Q12H PRN (Reason: Cough) Qty: 14 0RF losartan 25 mg tablet 25 mg PO DAILY Qty: 30 1RF furosemide 40 mg tablet 40 mg PO DAILY Label Comments: TAKE 1 TABLET BY MOUTH EVERY DAY NEEDED Men's 50 Plus Multivitamin 400-20-370 mcg Tablet 1 tab PO DAILY albuterol sulfate 2.5 mg /3 mL (0.083 %) solution for nebulization 2.5 mg INHALATION Q4H PRN (Reason: shortness of breath or wheezing) Qty: 360 6RF ipratropium-albuterol 0.5 mg-3 mg(2.5 mg base)/3 mL solution for nebulization 3 ml INHALATION Q4H PRN (Reason: Wheezing) Qty: 360 6RF montelukast [Singulair] 10 mg tablet 10 mg PO QPM Qty: 30 5RF albuterol sulfate [Ventolin HFA] 90 mcg/actuation HFA aerosol inhaler 2 puff INHALATION Q4H PRN (Reason: shortness of breath or wheezing) Qty: 18 6RF budesonide-formoterol [Symbicort] 160-4.5 mcg/actuation HFA aerosol inhaler 2 puff INHALATION BID Qty: 10.2 6RF Primary Care Provider: Yumi Peralta Referrals: Yumi Peralta MD [Primary Care Provider] - Disposition Disposition: Acute Care Hospital [facility]
[2023-01-01 10:41] LABS: Absolute Lymphocyte Count 1.36 X10^3/uL (0.83-4.51); Absolute Neutrophil Count 9.3 X10^3/uL (2.0-7.7); Basophil# 0.05 X10^3/uL; Basophil% 0.4 % (0-1); Eosinophil# 0.04 X10^3/uL; Eosinophils% 0.3 % (0-5); Hemoglobin 15.1 g/dL (13.0-16.5); Lymphocyte # 1.36 X10^3/ul (0.83-4.51); Lymphocyte % 11.8 % (19-41); Mean Corp Hgb Conc 30.2 g/dL (32-36); Mean Corpuscular Hgb 31.7 pg (27.0-32.0); Mean Platelet Vol. 10.4 fl (6.2-12.0); Monocyte# 0.69 X10^3/uL; NRBC Flagged by Analyzer 0 % (0-5); Neutrophil # 9.34 X10^3/uL (2.7-7.7); Neutrophil % 80.9 % (47-70); Platelet Count 179 K/mm3 (150-450); RBC Distribution Width CV 12.7 % (11.6-14.6); RBC Distribution Width SD 49.5 fl (35.1-43.9); Red Blood Count 4.76 M/mm3 (4.6-6.2); White Blood Count 11.6 K/mm3 (4.4-11.0)
[2023-01-01] MEDS: Ipratropium/Albuterol Sulfate 3 ML AMPUL.NEB INHALATION ×3 (10:46→23:28)
[2023-01-01] MEDS: MethylPREDNISolone 125 MG/2 ML Vial 60 MG IV (10:54)
--- NOTE | 2023-01-01 11:00 | RAD_ITS ---
STUDY: X-RAY CHEST REASON FOR EXAM: Male, 52 years old. History of shortness of breath and cough. TECHNIQUE: PA and lateral views of the chest. COMPARISON: Comparison is made with prior examination dated 11/05/2022. FINDINGS: EKG electrode are seen. There is hyperinflation of the lungs consistent with chronic obstructive lung disease (COPD). There is no demonstrated pleural abnormality. Normal size heart. Normal mediastinum and lani. There is prominence of the pulmonary hilar arteries without peripheral pulmonary vascular congestion, suggesting pulmonary hypertension. Normal visualized aortic arch and descending thoracic aorta. Normal visualized thoracic spine. Multiple healed left rib fractures. There is no demonstrated abnormality of the visualized soft tissue structures of the upper abdomen. RAD/Chest PA and Lateral IMPRESSION: Hyperinflation and changes compatible with COPD. Prominence of the central pulmonary arteries bilaterally suggestive of possible component of pulmonary hypertension. Electronically Signed: Arsenio Funk MD at 11:19 EST ,
[2023-01-01 11:04] LABS: BUN 14 mg/dL (7-18); BUN/Creat Ratio 21.1 RATIO (10-20); Calcium,Total 9.4 mg/dL (8.5-10.1); Carbon Dioxide > 45.0 mmol/L (21.0-32.0); Chloride 87 mmol/L (98-107); Creatinine, Serum 0.66 mg/dL (0.70-1.30); EST Glomerular Filtration Rate 133 mL/min (>60); Est Glom Filt Rate - Afr Amer 161 mL/min (>60); Estimated Creatinine Clearance 140.44 ml/min; Glucose 147 mg/dL (74-106); Potassium 3.6 mmol/L (3.5-5.1); Sodium Level 138 mmol/L (136-145)
[2023-01-01 13:28] LABS: Allen Test Positive; Base Excess 29 mmol/L (-2 to +2); Bicarbonate 54.7 mmol/L (22-26); Blood Gas Specimen Type ART; O2 Delivery Device Cannula; PO2 69 mmHG (75-100); SITE L Radial; SO2 90 % (95-99); Total Carbon Dioxide > 50 mmol/L; pCO2 103.6 mmHg (35-45); pH 7.33 (7.35-7.45)
--- NOTE | 2023-01-01 13:29 | PCM.HP.STD ---
[facility] - General General Date of Admission: 01/01/23 Date of Service: 01/01/23 Chief Complaint: Shortness of breath HPI Narrative HARJIT ALBERTS, is a 52 M who presented to the emergency department with [facility] on 01/01/2023 with a chief complaint of worsening shortness of breath. Patient states approximately 2 days ago he began having a dry cough that is nonproductive and worsening shortness of breath. 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 Patient states he is compliant with this. He was previously diagnosed with a pulmonary embolism at his last admission in mid October and has been compliant with his Eliquis. He has a history of chronic hypercapnia and his begins noticing some twitching. She states that this gets worse when his hypercapnia worsens so she brought him to the emergency department. He denies any fever or chills, sick contacts, and as noted has had no sputum production. He follows with Dr. Benavides at baseline. He is still smoking 1 cigarette a week or so per report on admission. Vital signs on presentation demonstrated temperature of 97.9, heart rate 95, blood pressure 135/100, respiratory rate was 22 and oxygen saturations were 96% on 4 L nasal cannula. CBC showed a mild leukocytosis with a white count of 11.6 however this is better than previous. He does have a mild left shift with an 80.9% neutrophilia. ABG demonstrated a pH of 7.33 with a PCO2 of 103.6 and a PO2 of 69 giving him a sat of 90% on 4 L nasal cannula. Chemistries showed chronically elevated serum bicarbonate to compensate for his chronic hypercapnia but was otherwise unremarkable. He does have hyperglycemia on presentation with a blood glucose of 147. Chest x-ray shows hyperinflation and changes compatible with COPD as well as prominence of the central pulmonary arteries suggestive of pulmonary hypertension which is in the patient's history. EKG is unremarkable for any acute changes. In the emergency department the patient was treated with supplemental oxygen up to 4 L from his baseline 3 as well as nebulizers and steroids. Per the ER physician, they were hoping to be able to discharge him home on prednisone however his ambulatory pulse ox on the 4 L dropped into the 70s. Therefore he will require admission for further medical intervention with regards to acute exacerbation of COPD. [facility] Medical History Acute respiratory failure with hypoxia and hypercapnia Anxiety BiPAP (biphasic positive airway pressure) dependence Blood disorder Cardiology follow-up encounter Chronic hypoxemic respiratory failure Closed fracture dislocation of joint of left lower extremity Closed fracture of left tibial plateau Congestive heart failure Congestive heart failure (CHF) COPD (chronic obstructive pulmonary disease) Depression Former smoker History of echocardiogram History of edema History of pain when walking HTN (hypertension) Hypertension Incarcerated umbilical hernia Obesities, morbid Obesity hypoventilation syndrome On home oxygen therapy LAYLA (obstructive sleep apnea) Other specified injury of left quadriceps muscle, fascia and tendon, initial encounter Pulmonary HTN Pulmonary hypertension Seasonal allergies Stage 4 very severe COPD by GOLD classification Stage 4 very severe COPD by GOLD classification Tobacco dependence Uses wheelchair Home Medications spironolactone 25 mg tablet 25 mg PO BID bp 12/02/15 [History Last Taken 01/01/23] metoprolol succinate 50 mg tablet,extended release 24 hr 50 mg PO BID Heart 09/13/18 [History Last Taken 01/01/23] bupropion HCl 150 mg 24 hr tablet, extended release (Wellbutrin XL) 150 mg PO BID Check with primary doctor 10/11/21 [History Last Taken 01/01/23] acetaminophen 500 mg tablet 1,000 mg PO Q6H PRN Pain 11/04/21 [History Last Taken 11/07/21 20:00] cyanocobalamin (vitamin B-12) 500 mcg tablet 500 mcg PO DAILY SUPPLEMENT 11/08/21 [History Last Taken 01/01/23] sertraline 100 mg tablet 100 mg PO DAILY Check with primary doctor 01/23/22 [History Last Taken 01/01/23] albuterol sulfate 2.5 mg/3 mL (0.083 %) solution for nebulization 2.5 mg (3 mL) inhalation Q4H PRN shortness of breath or wheezing #360 mL 04/20/22 [Rx Last Taken 01/01/23] ipratropium 0.5 mg-albuterol 3 mg (2.5 mg base)/3 mL nebulization soln 3 ml inhalation Q4H PRN Wheezing #360 mL 04/20/22 [Rx Last Taken 01/01/23] montelukast 10 mg tablet (Singulair) 10 mg PO QPM COPD #30 tabs 06/30/22 [Rx Last Taken 12/31/22] albuterol sulfate 90 mcg/actuation aerosol inhaler (Ventolin HFA) 2 puff inhalation Q4H PRN shortness of breath or wheezing #18 grams 09/08/22 [Rx Last Taken 01/01/23] mepolizumab 100 mg/mL subcutaneous auto-injector (Nucala) 300 mg subcut Q4W Check with primary doctor 11/05/22 [History Last Taken 12/10/22] apixaban 5 mg tablet (Eliquis) 5 mg PO BID #74 tabs 11/08/22 [Rx Last Taken 01/01/23] guaifenesin 1,200 mg tablet, extended release 12 hr 1,200 mg PO Q12H PRN Cough #14 tabs 11/08/22 [Rx Last Taken 12/31/22] losartan 25 mg tablet 25 mg PO DAILY #30 tabs 11/08/22 [Rx Last Taken 01/01/23] sennosides 8.6 mg-docusate sodium 50 mg tablet (Stool Softener-Stimulant Laxative) 2 tab PO BID PRN PRN Constipation #0 tabs 11/08/22 [Rx Last Taken Unknown] torsemide 20 mg tablet 20 mg PO BID #60 tabs 11/08/22 [Rx Last Taken 12/31/22] budesonide-formoterol HFA 160 mcg-4.5 mcg/actuation aerosol inhaler (Symbicort) 2 puff inhalation BID BREATHING #10.2 grams 12/04/22 [Rx Last Taken 01/01/23] furosemide 40 mg tablet 40 mg PO DAILY FLUID 01/01/23 [History Last Taken 12/31/22] fbjgwmgwuhka-oeu-zwaxp acid-vit K-lycop 400 mcg-20 mcg-370 mcg tablet (Men's 50 Plus Multivitamin) 1 tab PO DAILY SUPPLEMENT 01/01/23 [History Last Taken 12/31/22] Allergy/AdvReac Type Severity Reaction Status Date / Time clarithromycin [From Biaxin] Allergy Hives Verified 01/01/23 10:15 Penicillins Allergy Hives Verified 01/01/23 10:15 Family History Mother Diabetes Breast cancer Heart disease Hypertension COPD (chronic obstructive pulmonary disease) Asthma Father Hypertension CVA (cerebral vascular accident) Surgical History History of hernia repair (~08/2018) History of tonsillectomy History of tooth extraction Hx of cardiac cath Social History (Updated 01/01/23 @ 13:[address] Mely Lyons DO) household members: spouse Smoking Status: Current some day smoker tobacco type: cigarettes how long ago did patient quit smoking: Patient admits to smoking 1 cigarette to 2 cigarettes weekly second hand exposure: Yes quit status: has quit before alcohol intake: never substance use type: does not use ROS Constitutional Constitutional: Denies anorexia, change in weight, chills, fatigue, fever(s), malaise, night sweats, weakness or other Eyes Eyes: Denies blurry vision, change in eye color, change in vision, discharge from eye(s), double vision, erythema, eye pain, loss of vision or other ENT HEENT: Denies abnormal hearing, dysphagia, ear pain, epistaxis, headache(s), hearing loss, nasal congestion, nasal discharge, post nasal drip, sinus pressure, sore throat or other Cardiovascular Cardiovascular: Reports dyspnea on exertion; Denies chest pain, claudication, edema, lightheadedness, orthopnea, palpitations, paroxysmal nocturnal dyspnea, rapid heart rate, syncope or other Respiratory/Chest Respiratory/Chest: Reports cough, shortness of breath at rest, shortness of breath with exertion and wheezing; Denies dyspnea, excessive phlegm production, hemoptysis, productive cough or other Gastrointestinal Gastrointestinal: Denies abdominal pain, coffee ground emesis, constipation, diarrhea, dyspepsia, hematemesis, hematochezia, loose stools, melena, nausea, vomiting or other Genitourinary Genitourinary: Denies burning urination, difficulty urinating, dysuria, hematuria, nocturia, urinary frequency, urinary hesitancy, urinary incontinence, urinary urgency or other Musculoskeletal Musculoskeletal: Denies arthralgias, back pain, joint pain, joint stiffness, joint swelling, myalgias, neck pain or other Neurologic Neurologic: Denies abnormal gait, abnormal speech, confusion, disequilibrium, dizziness, focal weakness, headache(s), numbness, paresthesias, seizure-like activity, seizures, syncope, tingling, tremor(s) or other Psychiatric Psychiatric: Reports anxiety and depression; Denies homicidal ideation, suicidal ideation or other Endocrine Endocrinology: Denies change in body appearance, cold intolerance, excessive sweating, heat intolerance, polydipsia, polyuria or other Hematologic/Lymphatic Hematologic/Lymphatic: Denies anemia, easy bleeding, easy bruising, lymphadenopathy or other Allergic/Immunologic Allergic/Immunologic: Denies rhinitis, hives, eczemia, asthma or other Vital Signs Vital Signs Vital Signs: 01/01/23 10:13 01/01/23 11:00 01/01/23 10:56 Temperature 97.9 F Temperature Source Temporal Pulse Rate 95 80 Respiratory Rate 22 H 21 H 18 Respiratory Effort Respiratory Depth Respiratory Pattern Tachypnea Blood Pressure 135/100 H Blood Pressure Mean 111 Pulse Ox 96 95 Oxygen Delivery Method Nasal Cannula Room Air Oxygen Flow Rate (L/min) 4 4 01/01/23 11:00 01/01/23 11:01 01/01/23 12:28 Temperature Temperature Source Pulse Rate 88 Respiratory Rate 20 H Respiratory Effort Short of Breath Respiratory Depth Normal Respiratory Pattern Normal Blood Pressure 141/84 H Blood Pressure Mean 103 Pulse Ox 95 92 Oxygen Delivery Method Nasal Cannula Nasal Cannula Nasal Cannula Oxygen Flow Rate (L/min) 4 4 4 Weight Weight: 151.046 kg Body Mass Index (BMI) 45.1 Physical Exam Const alert, oriented x3, no apparent distress and well nourished Constitutional Narrative: Morbidly obese, middle-aged, white male sitting up in bed, at bedside, patient has no signs of respiratory extremis or distress at this time, speaks in complete sentences and is currently on 4 L nasal cannula. General Appearance: cooperative HEENT normocephalic, head/scalp atraumatic, hearing grossly normal bilaterally and moist oral mucous membranes HEENT Narrative: A dentulous, Mallampati is 3, no thrush Eyes PERRL, EOMs intact bilaterally and conjunctivae normal Eyes Narrative: No scleral icterus Neck no lymphadenopathy, supple, no JVD and no carotid bruits Neck Narrative: Trachea midline, no thyroid enlargement Resp no retractions and no use of accessory muscles Resp Narrative: Markedly diminished diffusely with scattered wheezing, inspiratory and expiratory, mild tachypnea Auscultation: wheezes; Negative for rales or rhonchi Cardio regular rate, regular rhythm, S1 normal heart sound, S2 normal heart sound, no murmurs, no rub, no gallops and no clicks Cardio Narrative: Heart tones are distant secondary to body habitus GI normal to inspection, nondistended, normoactive bowel sounds, soft to palpation and non-tender Extremity no clubbing, cyanosis or edema Extremity Narrative: Trace bilateral lower extremity edema, 2+ pedal pulses Skin no rashes or lesions noted, no wounds, skin turgor normal, no jaundice, no petechiae and no mottling Neuro oriented x3, CN's II-XII intact bilaterally, moves all extremities and no focal motor deficits Speech: speech normal Psych affect normal Psych Narrative: Very pleasant, appropriately interactive Results Lab / Micro Data Attestation: I reviewed the patient's lab results. Result Diagrams: 01/01/23 10:31 01/01/23 10:31 Labs: Laboratory Results - last 24 hr 01/01/23 10:31: WBC 11.6 H, RBC 4.76, Hgb 15.1, Hct 50.0, MCV 105.0 H, MCH 31.7, MCHC 30.2 L, RDW Std Deviation 49.5 H, RDW Coeff of Valerie 12.7, Plt Count 179, MPV 10.4, Immature Gran % (Auto) 0.600, Neut % (Auto) 80.9 H, Lymph % (Auto) 11.8 L, [place] % (Auto) 6.0, Eos % (Auto) 0.3, Baso % (Auto) 0.4, Absolute Neuts (auto) 9.3 H, Absolute Lymphs (auto) 1.36, Nucleated RBC % 0 01/01/23 10:31: Sodium 138, Potassium 3.6, Chloride 87 L, Carbon Dioxide > 45.0 H*, Anion Gap TNP, BUN 14, Creatinine 0.66 L, Estim Creat Clear Calc 140.44, Est GFR (MDRD) Af Amer 161, Est GFR (MDRD) Non-Af 133, BUN/Creatinine Ratio 21.1 H, Glucose 147 H, Calcium 9.4 01/01/23 10:31: B-Natriuretic Peptide 47.0 Micro: Microbiology 01/01/23 11:30 Nasal Secretion SARS-CoV-2 & FLU Antigen (Rapid) - Final ABG Data ABG results: ABG 01/01/23 12:52 Specimen Type ART Sample Site L Radial pH 7.33 L Bicarbonate Actual 54.7 H Total CO2 > 50 Base Excess 29 H O2 Saturation 90 L ABG pCO2 103.6 H* ABG pO2 69 L Tal Test Positive O2 Delivery Device Cannula Liter Flow 4.0 Crit Call To/Read Back Yes Blood Gas Notified Whom dr cassidy Radiology Impression Chest X-Ray 01/01/23 11:00 IMPRESSION: Hyperinflation and changes compatible with COPD. Prominence of the central pulmonary arteries bilaterally suggestive of possible component of pulmonary hypertension. Electronically Signed: Arsenio Funk MD at 11:19 EST , Assessment & Plan Assessment/Plan (1) Hypoxia: (2) Hypercapnia: (3) Chronic respiratory failure with hypoxia: (4) Leukocytosis: PLAN: Plan Acute hypoxia and hypercapnia on chronic hypoxic and hypercapnic respiratory failure secondary to acute exacerbation of COPD -Patient has no signs of acute respiratory failure -PCO2 is elevated from baseline at 103 causing a drop in his pH to 7.33 causing and only mild respiratory acidosis -Patient wears 3 L of oxygen at baseline and currently requiring 4 L at rest -Did require greater than 6 L with exertion in the emergency department prior to admission -COVID and flu are negative -Check viral respiratory panel -Check strep pneumo and Legionella antigens -Continue steroids with Solu-Medrol 40 every 8 -Aggressive pulmonary toilet with DuoNebs and as needed albuterol -Incentive spirometry -Mucinex 1200 twice daily -Pep therapy with Acapella 10 times every 2 hours while awake -We will start on BiPAP for now to get ahead of his respiratory acidosis and then utilize nocturnally and with naps as he does at home once stabilized -No antibiotics for now as patient does not have any increase or change in sputum production -Patient does follow with pulmonary medicine as an outpatient--> no current need for consultation Leukocytosis -Doubt infectious -We will do infectious work-up but hold antibiotics for now -White count elevation is very mild and lower than he has been at previous CBC assessments Chronic metabolic alkalosis -Secondary to chronic hypercapnia -Appears to be at baseline Hyperglycemia -Patient without diagnosis of diabetes -Blood sugar was 147 on presentation -We will check hemoglobin A1c Asthma/COPD Gold stage 4 -Documented as end-stage by pulmonary medicine -Treatment as above for exacerbation -Restart inhalers at discharge -Patient is on Nucala as an outpatient once monthly Bilateral pulmonary emboli -Diagnosed in October -Patient has been compliant with his Eliquis -Continue DOAC LAYLA/suspected OHS -Continue BiPAP 12/11 per home regimen with naps and nightly -Currently on continuous BiPAP so we can get of the head of his mild respiratory acidosis Combined right-sided and diastolic heart failure -Continue home torsemide -Echocardiogram 04/13/2021 shows an EF of 65% with stage II diastolic dysfunction, structurally normal valves and a pulmonary artery systolic pressure of 60 mmHg Hypertension -Continue metoprolol -Continue losartan -Continue diuresis -Continue Aldactone -Med rec has patient on Lasix as well however he states he only takes this as needed and takes the torsemide on a regular basis Seasonal allergies -Continue home Singulair Tobacco abuse -Patient is down to 1 to 2 cigarettes a day -Had stop smoking previously -Recommend smoking cessation -No need for nicotine replacement at this time Depression/anxiety -Continue home Wellbutrin -Continue home Zoloft DVT prophylaxis -Continue full anticoagulation with Eliquis CODE STATUS -Full code as verified prior to admission Charges/Coding Visit Charges Inpatient E&M: 30052 Init Hosp L3
[2023-01-01 14:51] LABS: Hemoglobin A1c 5.7 % (3.8-5.6)
[2023-01-01] MEDS: 0.9% Saline Lock 10 ML Syringe IV (18:48)
[2023-01-01] MEDS: Furosemide 40 MG Tablet PO (18:59)
[2023-01-01] MEDS: Montelukast 10 MG Tablet PO (20:58)
[2023-01-01] MEDS: Metoprolol(XL)Succ 50 MG Tablet PO (21:00)
[2023-01-01] MEDS: buPROPion (XL) 150 MG TABLET.XL PO (21:01)
[2023-01-01] MEDS: Spironolactone 25 MG Tablet PO (21:14)
[2023-01-01] MEDS: APIXABAN 5 MG TABLET PO (21:14)
[2023-01-02] VITALS (19 sets, daily range): BP systolic 113–156; BP diastolic 50–92; PULSE 55–95; RESP 12–22; TEMP 36.2–36.9; O2SAT 91–100
[2023-01-02] MEDS: Ipratropium/Albuterol Sulfate 3 ML AMPUL.NEB INHALATION ×5 (03:55→23:25)
[2023-01-02] MEDS: 0.9% Saline Lock 10 ML Syringe IV ×2 (06:50→13:33)
[2023-01-02 06:53] LABS: Absolute Lymphocyte Count 1.11 X10^3/uL (0.83-4.51); Absolute Neutrophil Count 11.6 X10^3/uL (2.0-7.7); Basophil# 0.02 X10^3/uL; Basophil% 0.1 % (0-1); Hematocrit 46.3 % (40-54); Hemoglobin 14.2 g/dL (13.0-16.5); Lymphocyte # 1.11 X10^3/ul (0.83-4.51); Lymphocyte % 8.1 % (19-41); Mean Corp Hgb Conc 30.7 g/dL (32-36); Mean Corpuscular Hgb 31.6 pg (27.0-32.0); Mean Corpuscular Volume 103.1 fL (80-94); Mean Platelet Vol. 10.8 fl (6.2-12.0); Monocyte# 0.82 X10^3/uL; NRBC Flagged by Analyzer 0 % (0-5); Neutrophil # 11.62 X10^3/uL (2.7-7.7); Neutrophil % 85.2 % (47-70); Platelet Count 169 K/mm3 (150-450); RBC Distribution Width CV 12.3 % (11.6-14.6); RBC Distribution Width SD 46.9 fl (35.1-43.9); Red Blood Count 4.49 M/mm3 (4.6-6.2); White Blood Count 13.7 K/mm3 (4.4-11.0)
[2023-01-02 07:22] LABS: ALB/GLOB Ratio 0.8 RATIO (0.9-2.4); AST(SGOT) 21 U/L (15-37); Alanine Aminotransfer ALT/SGPT 26 U/L (16-61); Albumin, Serum 2.9 g/dL (3.2-5.0); Alkaline Phosphatase 79 U/L (45-117); Anion Gap 6 (5-15); BUN 15 mg/dL (7-18); BUN/Creat Ratio 27.2 RATIO (10-20); Calcium,Total 9.2 mg/dL (8.5-10.1); Chloride 90 mmol/L (98-107); Creatinine, Serum 0.55 mg/dL (0.70-1.30); EST Glomerular Filtration Rate 164 mL/min (>60); Est Glom Filt Rate - Afr Amer 199 mL/min (>60); Estimated Creatinine Clearance 168.53 ml/min; Globulin 3.6 g/dL (2.2-4.2); Glucose 103 mg/dL (74-106); Magnesium 2.2 mg/dL (1.6-2.6); Phosphorus 2.4 mg/dL (2.5-4.9); Potassium 4.2 mmol/L (3.5-5.1); Protein, Total 6.5 g/dL (6.4-8.2); Sodium Level 139 mmol/L (136-145)
[2023-01-02] MEDS: Sertraline 100 MG Tablet PO (09:38)
[2023-01-02] MEDS: Metoprolol(XL)Succ 50 MG Tablet PO ×2 (09:38→21:00)
[2023-01-02] MEDS: Furosemide 40 MG Tablet PO ×2 (09:38→18:07)
[2023-01-02] MEDS: Multivitamins,Ther W-Minerals Tablet 1 TABLET PO (09:39)
[2023-01-02] MEDS: APIXABAN 5 MG TABLET PO ×2 (09:39→21:02)
[2023-01-02] MEDS: Losartan Potassium 25 MG Tablet PO (09:39)
[2023-01-02] MEDS: buPROPion (XL) 150 MG TABLET.XL PO ×2 (09:39→21:03)
[2023-01-02] MEDS: Spironolactone 25 MG Tablet PO ×2 (09:39→21:02)
--- NOTE | 2023-01-02 11:45 | CASEMGMT ---
RN CM Face to Face with patient for initial transition planning/care coordination assessment. RN CM introduced self and role at [facility]. Patient lying in bed, alert and oriented. Patient willing to participate in assessment and is able to answer all questions appropriately. Care providers, pharmacy, and demographics verified. Patient wishes to discharge home, denies need for home health at this time. Patient states he has no further needs or concerns at this time. CM to follow for discharge planning needs that may arise. PCP: Yumi Peralta Specialists: Kennedy, music minister; Bear Bojorquez, bead filler Javed Bennett Preferred Pharmacy: [facility] Insurance: [employer] Prescription Benefit: yes Living Will/HPOA: yes, girlfriend Laura Mirza LNOK: son, girlfriend Living Arrangements: Patient lives with girlfriend in a mobile home with 7 steps and railing to enter. Patient states he is independent at home. Transportation: self, significant other DME/HHC: Patient states he has shower chair, BSC, cane, walker, grab bars, bipap, nebulizer, pulse ox, and home oxygen through [employer] at 3-8lpm with portability. Patient has been to [facility]. Will monitor for possible outpatient therapy. Disposition Plan: Patient to discharge home with family support and follow-up plans in place. Will monitor for increased oxygen needs. Ariana ZUNIGA, RN, CM
[2023-01-02] MEDS: Albuterol 2.5 MG/3 ML VIAL.NEB. INHALATION (16:21)
--- NOTE | 2023-01-02 16:51 | PCM.PN.HOSP ---
Reason for Visit Reason for Visit: Diagnoses Elevated white blood cell count, unspecified (01/01/23) Chronic respiratory failure with hypoxia (01/01/23) Other abnormalities of breathing (01/01/23) Hypoxemia (01/01/23) Subjective Subjective Patient reports he is feeling slightly better. Still using noninvasive quite a bit. His phone told him he had A-fib overnight however we checked his telemetry and there were no atrial fibrillation events. I assured him we will continue to watch him on telemetry to make sure as he is high risk for development of atrial fibrillation with his pulmonary disease. He would also be high risk for MAT. Objective Data Objective Data Vital Signs: Vital Signs Temp Pulse Resp BP Pulse Ox O2 Del Method O2 Flow Rate 98.4 F 68 20 H 140/90 H 91 Nasal Cannula 3 01/02/23 15:52 01/02/23 16:30 01/02/23 16:30 01/02/23 15:52 01/02/23 16:14 01/02/23 16:14 01/02/23 16:14 FiO2 40 01/02/23 13:48 Oxygen Flow Rate (L/min) 3 Oxygen Delivery Method Nasal Cannula Weight: 151.046 kg Body Mass Index (BMI) 45.1 Intake & Output: Intake and Output for Last 24 Hours 12/31/22 01/01/23 01/02/23 23:59 23:59 23:59 Intake Total 400 / 400 Output Total 775 / 775 Balance -375 / -375 Lab / Micro Data Result Diagrams: 01/02/23 06:25 01/02/23 06:25 Labs: Laboratory Results - last 24 hr 01/02/23 06:25: WBC 13.7 H, RBC 4.49 L, Hgb 14.2, Hct 46.3, MCV 103.1 H, MCH 31.6, MCHC 30.7 L, RDW Std Deviation 46.9 H, RDW Coeff of Valerie 12.3, Plt Count 169, MPV 10.8, Immature Gran % (Auto) 0.600, Neut % (Auto) 85.2 H, Lymph % (Auto) 8.1 L, [place] % (Auto) 6.0, Eos % (Auto) 0.0, Baso % (Auto) 0.1, Absolute Neuts (auto) 11.6 H, Absolute Lymphs (auto) 1.11, Nucleated RBC % 0 01/02/23 06:25: Sodium 139, Potassium 4.2, Chloride 90 L, Carbon Dioxide 43.0 H, Anion Gap 6, BUN 15, Creatinine 0.55 L, Estim Creat Clear Calc 168.53, Est GFR (MDRD) Af Amer 199, Est GFR (MDRD) Non-Af 164, BUN/Creatinine Ratio 27.2 H, Glucose 103, Calcium 9.2, Phosphorus 2.4 L, Magnesium 2.2, Total Bilirubin 0.40, AST 21, ALT 26, Alkaline Phosphatase 79, Total Protein 6.5, Albumin 2.9 L, Globulin 3.6, Albumin/Globulin Ratio 0.8 L Micro: Microbiology 01/01/23 19:05 Mucosa - Nose Respiratory Panel (PCR) - Final 01/01/23 21:15 Urine, Clean Catch Legionella Antigen - Final 01/01/23 21:15 Urine, Clean Catch Streptococcus pneumoniae Antigen (M - Final 01/01/23 11:30 Nasal Secretion SARS-CoV-2 & FLU Antigen (Rapid) - Final Physical Exam Const alert, oriented x3, no apparent distress and well nourished Constitutional Narrative: Morbidly obese, middle-aged, white male lying in bed on noninvasive ventilation, son at bedside, patient appears comfortable and nontoxic General Appearance: cooperative HEENT normocephalic, head/scalp atraumatic and moist oral mucous membranes Eyes Eyes Narrative: No scleral icterus Resp normal respiratory effort, no retractions and no use of accessory muscles Resp Narrative: Tachypnea has resolved, wheezing improved but not resolved Auscultation: wheezes; Negative for rales or rhonchi Cardio regular rate, regular rhythm, S1 normal heart sound, S2 normal heart sound, no murmurs, no rub, no gallops and no clicks Cardio Narrative: Heart tones are distant secondary to body habitus GI normal to inspection, nondistended, normoactive bowel sounds, soft to palpation and non-tender Extremity no clubbing, cyanosis or edema Extremity Narrative: Trace bilateral lower extremity edema, 2+ pedal pulses Neuro oriented x3, moves all extremities and no focal motor deficits Speech: speech normal Psych affect normal Psych Narrative: Very pleasant, appropriately interactive Assessment & Plan Assessment/Plan (1) Hypoxia: (2) Hypercapnia: (3) Chronic respiratory failure with hypoxia: (4) Leukocytosis: PLAN: Plan Acute hypoxia and hypercapnia on chronic hypoxic and hypercapnic respiratory failure secondary to acute exacerbation of COPD -Patient has no signs of acute respiratory failure -PCO2 is elevated from baseline at 103 causing a drop in his pH to 7.33 causing and only mild respiratory acidosis -Patient wears 3 L of oxygen at baseline and was on 5 L prior to going back on BiPAP for his nap -Wean as able -COVID and flu are negative -Respiratory viral panel is negative -Strep pneumo and Legionella antigens are negative -Continue steroids with Solu-Medrol 40 every 8 -Aggressive pulmonary toilet with DuoNebs and as needed albuterol -Incentive spirometry -Mucinex 1200 twice daily -Pep therapy with Acapella 10 times every 2 hours while awake -BiPAP at at bedtime and as needed with naps -No need for antibiotics based on current data -Patient does follow with pulmonary medicine as an outpatient--> no current need for consultation Leukocytosis -Doubt infectious -Infectious work-up is unremarkable -Likely elevated from yesterday because he is on steroids -White count elevation is very mild and lower than he has been at previous CBC assessments Chronic metabolic alkalosis -Secondary to chronic hypercapnia -Appears to be at baseline Hyperglycemia -Patient without diagnosis of diabetes -Blood sugar was 147 on presentation -Hemoglobin A1c was 5.7 therefore patient is not diabetic however he is trending that direction Asthma/COPD Gold stage 4 -Documented as end-stage by pulmonary medicine -Treatment as above for exacerbation -Restart inhalers at discharge -Patient is on Nucala as an outpatient once monthly Bilateral pulmonary emboli -Diagnosed in October -Patient has been compliant with his Eliquis -Continue DOAC LAYLA/suspected OHS -Continue BiPAP 12/11 per home regimen with naps and nightly -Currently on continuous BiPAP so we can get of the head of his mild respiratory acidosis Combined right-sided and diastolic heart failure -Continue home torsemide -Echocardiogram 04/13/2021 shows an EF of 65% with stage II diastolic dysfunction, structurally normal valves and a pulmonary artery systolic pressure of 60 mmHg Hypertension -Continue metoprolol -Continue losartan -Continue diuresis -Continue Aldactone -Med rec has patient on Lasix as well however he states he only takes this as needed and takes the torsemide on a regular basis Seasonal allergies -Continue home Singulair Tobacco abuse -Patient is down to 1 to 2 cigarettes a day -Had stop smoking previously -Recommend smoking cessation -No need for nicotine replacement at this time Depression/anxiety -Continue home Wellbutrin -Continue home Zoloft DVT prophylaxis -Continue full anticoagulation with Eliquis CODE STATUS -Full code as verified prior to admission Charges/Coding Visit Charges Inpatient E&M: 02856 Subs Hosp L2
--- NOTE | 2023-01-02 19:32 | CPS ---
patient requested to stay on the bipap at this time and did not wish to come off for aerosol treatment or PEP or IS
[2023-01-02] MEDS: Montelukast 10 MG Tablet PO (21:00)
[2023-01-03] VITALS (13 sets, daily range): BP systolic 116–135; BP diastolic 63–88; PULSE 59–95; RESP 15–18; TEMP 36.4–36.7; O2SAT 86–100
--- NOTE | 2023-01-03 01:15 | NURSING ---
This rn assuming care of pt at this time.
[2023-01-03] MEDS: Ipratropium/Albuterol Sulfate 3 ML AMPUL.NEB INHALATION ×4 (03:57→15:11)
[2023-01-03] MEDS: 0.9% Saline Lock 10 ML Syringe IV ×2 (05:18→13:12)
[2023-01-03] MEDS: Multivitamins,Ther W-Minerals Tablet 1 TABLET PO (08:38)
[2023-01-03] MEDS: Sertraline 100 MG Tablet PO (08:38)
[2023-01-03] MEDS: buPROPion (XL) 150 MG TABLET.XL PO (08:38)
[2023-01-03] MEDS: Metoprolol(XL)Succ 50 MG Tablet PO (08:38)
[2023-01-03] MEDS: Cyanocobalamin 500 MCG Tablet PO (08:39)
[2023-01-03] MEDS: Losartan Potassium 25 MG Tablet PO (08:39)
[2023-01-03] MEDS: Furosemide 40 MG Tablet PO (08:39)
[2023-01-03] MEDS: APIXABAN 5 MG TABLET PO (08:40)
[2023-01-03] MEDS: Spironolactone 25 MG Tablet PO (08:40)
--- NOTE | 2023-01-03 15:18 | DS.PCM_ITS ---
Providers Date of Admission: 01/01/23 Date of Discharge: 01/03/23 Primary Care Physician: Dr. Yumi Peralta MD Reason For Visit: ACUTE ON CHRONIC HYPOXIA AND HYPERCAPNIA Diagnosis Discharge Diagnosis (1) Hypoxia: Status: Acute Code(s): R09.02 - Hypoxemia (2) Hypercapnia: Status: Acute Code(s): R06.89 - Other abnormalities of breathing (3) Chronic respiratory failure with hypoxia: Status: Chronic Code(s): J96.11 - Chronic respiratory failure with hypoxia (4) Leukocytosis: Status: Acute Code(s): D72.829 - Elevated white blood cell count, unspecified Medications at Discharge Home Medications spironolactone 25 mg tablet 25 mg PO BID bp 12/02/15 metoprolol succinate 50 mg tablet,extended release 24 hr 50 mg PO BID Heart 09/13/18 bupropion HCl 150 mg 24 hr tablet, extended release (Wellbutrin XL) 150 mg PO BID Check with primary doctor 10/11/21 acetaminophen 500 mg tablet 1,000 mg PO Q6H PRN Pain 11/04/21 cyanocobalamin (vitamin B-12) 500 mcg tablet 500 mcg PO DAILY SUPPLEMENT 11/08/21 sertraline 100 mg tablet 100 mg PO DAILY Check with primary doctor 01/23/22 albuterol sulfate 2.5 mg/3 mL (0.083 %) solution for nebulization 2.5 mg (3 mL) inhalation Q4H PRN shortness of breath or wheezing #360 mL 04/20/22 ipratropium 0.5 mg-albuterol 3 mg (2.5 mg base)/3 mL nebulization soln 3 ml inhalation Q4H PRN Wheezing #360 mL 04/20/22 montelukast 10 mg tablet (Singulair) 10 mg PO QPM COPD #30 tabs 06/30/22 albuterol sulfate 90 mcg/actuation aerosol inhaler (Ventolin HFA) 2 puff inhalation Q4H PRN shortness of breath or wheezing #18 grams 09/08/22 mepolizumab 100 mg/mL subcutaneous auto-injector (Nucala) 300 mg subcut Q4W Check with primary doctor 11/05/22 apixaban 5 mg tablet (Eliquis) 5 mg PO BID #74 tabs 12/14/22 guaifenesin 1,200 mg tablet, extended release 12 hr 1,200 mg PO Q12H PRN Cough #14 tabs 11/08/22 losartan 25 mg tablet 25 mg PO DAILY #30 tabs 11/08/22 sennosides 8.6 mg-docusate sodium 50 mg tablet (Stool Softener-Stimulant Laxative) 2 tab PO BID PRN PRN Constipation #0 tabs 11/08/22 torsemide 20 mg tablet 20 mg PO BID #60 tabs 11/08/22 budesonide-formoterol HFA 160 mcg-4.5 mcg/actuation aerosol inhaler (Symbicort) 2 puff inhalation BID BREATHING #10.2 grams 12/04/22 furosemide 40 mg tablet 40 mg PO DAILY FLUID 01/01/23 witdlxdinhce-aev-gafvq acid-vit K-lycop 400 mcg-20 mcg-370 mcg tablet (Men's 50 Plus Multivitamin) 1 tab PO DAILY SUPPLEMENT 01/01/23 prednisone 10 mg tablet 10 mg PO DAILY #40 tabs 01/03/23 Hospital Course Operations None Procedures EKG and - (Chest x-ray) Summary of Care Provided Minutes Spent on Discharge: 36 Hospital Course: Mr. Ku is a 52-year-old white male who presented to the emergency department [facility] on 01/01/2023 with a chief complaint of worsening shortness of breath. Patient reported that approximately 2 days prior to presentation he began having a dry cough that was nonproductive and worsening shortness of breath. He has a history of end-stage COPD and at baseline is on 3 L nasal cannula at rest and 8 L with ambulation and wears a trilogy at night and with naps. He follows with Dr. Benavides at baseline. He stated that he is compliant with all of his medical therapy for his COPD. He was previously diagnosed with pulmonary embolism at his last admission in October and has been compliant with his Eliquis. He has a history of chronic hypercapnia and his began noticing some twitching at home which she reports usually indicates that he is retaining more CO2. This is why she brought him to the emergency department. He denied any fevers or chills, sick contacts and has had no no significant sputum production. He is still smoking 1 cigarette/week or so per report on admission. Vital signs on presentation demonstrated temperature of 97.9, heart rate 95, blood pressure 135/100, respiratory rate was 22 and oxygen saturations were 96% on 4 L nasal cannula.? CBC showed a mild leukocytosis with a white count of 11.6 however this is better than previous.? He does have a mild left shift with an 80.9% neutrophilia.? ABG demonstrated a pH of 7.33 with a PCO2 of 103.6 and a PO2 of 69 giving him a sat of 90% on 4 L nasal cannula.? C hemistries showed chronically elevated serum bicarbonate to compensate for his chronic hypercapnia but was otherwise unremarkable.? His blood glucose was 147 on admission and we obtain an A1c which was 5.7. He is not yet diabetic however is at risk for developing DM-2 as he has required prednisone fairly often. Chest x-ray showed hyperinflation and changes compatible with COPD as well as prominence of the central pulmonary arteries suggestive of pulmonary hypertension which is in the patient's history.? EKG was unremarkable for any acute changes. He was admitted to the hospital placed on continuous BiPAP given his ABG abnormalities on presentation, started on steroids, aggressive pulmonary toilet, and I-S and Pep therapy. We obtained strep pneumo and Legionella tensions which were negative and his respiratory viral panel was negative. He was able to be weaned off the continuous BiPAP to his as needed settings which he utilizes at naps and with rest. His oxygen requirements slowly improved and by 01/03/2023 he was able to be on his baseline settings. He reported that he was feeling 75% improved since admission and wanted to go home if medically stable. We repeated an ambulatory pulse ox on him and he required 6 to 8 L which is his baseline, with ambulation and was on 3 L at rest. He was able to be discharged home in stable condition on 01/03/2023. We did send a prescription for slow prednisone taper. 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 Benavides, to be seen in the next month since he did have an acute exacerbation requiring hospitalization. Discharge diagnoses: Acute hypoxic and hypercapnic on chronic hypoxic and hypercapnic respiratory failure Acute exacerbation of COPD Leukocytosis-resolved Chronic metabolic alkalosis secondary to chronic hypercapnia Hig per glycemia without diabetes Asthma COPD Gold stage IV History of bilateral pulmonary emboli LAYLA Suspected OHS Combined right-sided and diastolic heart failure Hypertension Seasonal allergies Tobacco abuse Depression Anxiety Physical Exam Narrative Patient reports she is about 75% better since admission, anxious to go home if we feel he is medically stable. Const alert, oriented x3, no apparent distress and well nourished Constitutional Narrative: Morbidly obese, middle-aged, white male lying in bed pain on his phone, on baseline home O2 at 3 L, patient appears comfortable and nontoxic General Appearance: cooperative, comfortable, well kempt and well developed Orientation / Consciousness: awake, oriented to person, oriented to place and oriented to time Exam Limitations: no limitations Nutritional Appearance: morbidly obese HEENT normocephalic, head/scalp atraumatic, hearing grossly normal bilaterally and moist oral mucous membranes HEENT Narrative: Mallampati 4, edentulous, no thrush Eyes PERRL, EOMs intact bilaterally and conjunctivae normal Eyes Narrative: No scleral icterus Neck no lymphadenopathy, supple, no JVD and no carotid bruits Neck Narrative: Trachea midline, no thyroid enlargement Resp normal respiratory effort, no retractions, no use of accessory muscles and clear to auscultation bilaterally Resp Narrative: Diffusely diminished but clear-improved air movement Auscultation: Negative for rales, rhonchi or wheezes Cardio regular rate, regular rhythm, S1 normal heart sound, S2 normal heart sound, no murmurs, no rub, no gallops and no clicks Cardio Narrative: Heart tones are distant secondary to body habitus GI normal to inspection, nondistended, normoactive bowel sounds, soft to palpation and non-tender Extremity no clubbing, cyanosis or edema Extremity Narrative: Trace bilateral lower extremity edema, 2+ pedal pulses Skin no rashes or lesions noted, no wounds, skin turgor normal, no jaundice, no petechiae and no mottling Neuro oriented x3, CN's II-XII intact bilaterally, moves all extremities, no focal motor deficits and no sensory deficits noted Speech: speech normal Psych affect normal Psych Narrative: Very pleasant, appropriately interactive Weight / BMI Weight Weight: 151.046 kg Body Mass Index (BMI) 45.1 ABG / Lab / Microbiology Data Result Diagrams: 01/02/23 06:25 01/02/23 06:25 Microbiology: Microbiology 01/01/23 19:05 Mucosa - Nose Respiratory Panel (PCR) - Final 01/01/23 21:15 Urine, Clean Catch Legionella Antigen - Final 01/01/23 21:15 Urine, Clean Catch Streptococcus pneumoniae Antigen (M - Final 01/01/23 11:30 Nasal Secretion SARS-CoV-2 & FLU Antigen (Rapid) - Final D/C Instructions Discharge Diet: Low fat / Low cholesterol, 8 Cup Fluid Restriction and 2000 mg Sodium Diet Discharge Activity: Return to Normal Activity Return to work on: 01/08/23 Meaningful Use Info Meaningful Use Diagnoses (Choose all that apply): None applicable Discharge Plan Admission Admit Date/Time: 01/01/23 13:02 Primary Reason for Your Visit: Acute on chronic hypoxic respiratory failure Attending Provider: Mely Lyons Primary Care Provider: Yumi Peralta Discharge Orders/Prescriptions Prescriptions: New prednisone 10 mg tablet 10 mg PO DAILY Qty: 40 0RF Rx Instructions: 4 tablets x 4 days, 3 tablets x 4 days, 2 tablets x 4 days, 1 tablet x 4 days Continued sertraline 100 mg tablet 100 mg PO DAILY spironolactone 25 MG tablet 25 mg PO BID Label Comments: WATER PILL metoprolol succinate 50 MG tablet extended release 24 hr 50 mg PO BID bupropion HCl [Wellbutrin XL] 150 mg Tablet Extended Release 24 Hr 150 mg PO BID acetaminophen 500 mg Tablet 1,000 mg PO Q6H PRN (Reason: Pain) cyanocobalamin (vitamin B-12) 500 MCG tablet 500 mcg PO DAILY Nucala 100 mg/mL auto-injector 300 mg subcut Q4W Rx Instructions: administer as three 100 mg injections at separate sites sennosides-docusate sodium [Stool Softener-Stimulant Laxat] 8.6-50 mg Tablet 2 tab PO BID PRN PRN (Reason: Constipation) Qty: 0 0RF Eliquis 5 mg tablet 5 mg PO BID Qty: 74 0RF Rx Instructions: 10 mg (2 TAB) twice daily for 7 days and then 5 mg (1 TAB) twice daily to continue. DVT/PE dose torsemide 20 mg tablet 20 mg PO BID Qty: 60 2RF guaifenesin 1,200 MG tablet extended release 12hr 1,200 mg PO Q12H PRN (Reason: Cough) Qty: 14 0RF losartan 25 mg tablet 25 mg PO DAILY Qty: 30 1RF furosemide 40 mg tablet 40 mg PO DAILY Label Comments: TAKE 1 TABLET BY MOUTH EVERY DAY NEEDED Men's 50 Plus Multivitamin 400-20-370 mcg Tablet 1 tab PO DAILY albuterol sulfate 2.5 mg /3 mL (0.083 %) solution for nebulization 2.5 mg INHALATION Q4H PRN (Reason: shortness of breath or wheezing) Qty: 360 6RF ipratropium-albuterol 0.5 mg-3 mg(2.5 mg base)/3 mL solution for nebulization 3 ml INHALATION Q4H PRN (Reason: Wheezing) Qty: 360 6RF montelukast [Singulair] 10 mg tablet 10 mg PO QPM Qty: 30 5RF albuterol sulfate [Ventolin HFA] 90 mcg/actuation HFA aerosol inhaler 2 puff INHALATION Q4H PRN (Reason: shortness of breath or wheezing) Qty: 18 6RF budesonide-formoterol [Symbicort] 160-4.5 mcg/actuation HFA aerosol inhaler 2 puff INHALATION BID Qty: 10.2 6RF Referrals / Follow Up: Tay Benavides MD [Med Staff - Active Staff] - Within 1 Month (Please call tomorrow to make an appointment since you were hospitalized with acute exacerbation of your COPD) Yumi Peralta MD [Primary Care Provider] - Within 1 Week Disposition Disposition (needs filled in before D/C Order can be placed): Home, Self Care Charges/Coding Visit Charges Inpatient E&M: 03738 Disch Hosp >30min
--- NOTE | 2023-01-03 16:01 | CASEMGMT ---
FINA BLAKELY face to face with pt. Pt sitting on edge of bed. Pt denies any additional needs for discharge. Confirms he has O2 concentrator and portable tanks at home. States he has someone to bring him a tank to go home with. Discussed his multiple hospitalizations and pt relayed a desire to be able to stay home. Discussed palliative care services and pt is amenable to hearing additional information regarding their services. Dr. Lyons agreeable and order placed. Will email referral to [facility] for f/u after discharge. Estrella De Los Santos RN CM
== END 2023-01-03 16:33 | disposition home or self-care (01) | DRG 190 ==
LOC: ED 16:06 → PCU 18:18
PROVIDERS: Admitting Provider Internal Medicine; Emergency Provider Emergency Medicine; PCP Family Medicine; Visit Provider Internal Medicine
DX: J44.1 Chronic obstructive pulmonary disease with (acute) exacerbation (principal); J96.22 Acute and chronic respiratory failure with hypercapnia; J96.21 Acute and chronic respiratory failure with hypoxia; E87.4 Mixed disorder of acid-base balance; I50.32 Chronic diastolic (congestive) heart failure; E66.2 Morbid (severe) obesity with alveolar hypoventilation; Z68.42 Body mass index [BMI] 45.0-49.9, adult; I27.82 Chronic pulmonary embolism; I11.0 Hypertensive heart disease with heart failure; F17.210 Nicotine dependence, cigarettes, uncomplicated; J30.2 Other seasonal allergic rhinitis; D72.829 Elevated white blood cell count, unspecified; F41.9 Anxiety disorder, unspecified; F32.A Depression, unspecified; R73.9 Hyperglycemia, unspecified; Z99.81 Dependence on supplemental oxygen; Z79.01 Long term (current) use of anticoagulants; Z79.899 Other long term (current) drug therapy
CPT/HCPCS: 36415; 36600; 71046; 80048; 80053; 82803; 83036; 83735; 83880; 84100; 85025; 87428; 87449; 87633; 93005; 94002; 94003; 94640; 94668; 94762; 99252; 99284; A4216; G0463

== ENCOUNTER → 2023-01-16 | Outpatient (CLI) | payer MEDICARE, SELFPAY ==
[2023-01-16 16:23] LABS: Rheumatoid Factor < 10.0 IU/mL (<15)
[2023-01-18 13:08] LABS: Cytoplasmic Ab (C-ANCA) <1:20 titer (Neg:<1:20)
[2023-01-18 22:54] LABS: ANTINUCLEAR ANTIBODIES DIRECT Negative (Negative)
[2023-01-18 22:57] LABS: CCP IgG Antibodies 1 units (0-19); Perinuclear Ab (P-ANCA) <1:20 titer (Neg:<1:20)
== END | disposition home or self-care (01) ==
PROVIDERS: PCP Family Medicine; Visit Provider Nurse Practitioner Acute Care
DX: R06.02 Shortness of breath (principal)
CPT/HCPCS: 36415; 86038; 86200; 86225; 86235; 86256; 86431

== ENCOUNTER → 2023-01-30 | Outpatient (CLI) | payer MEDICARE, SELFPAY ==
--- NOTE | 2023-01-30 13:54 | ECHOCS_ITS ---
Reason For Study: Dyspnea Procedure This was a 2D Doppler, Color Flow transthoracic echocardiogram. The study was technically difficult. Contrast injection was performed. Exam performed in department. Left Ventricle Normal LV size. D shaped septum in systole and diastole. Left ventricular systolic function is normal. The estimated ejection fraction is 65 %. No evidence for diastolic dysfunction. No regional wall motion abnormalities noted. Right Ventricle Mildly dilated right ventricle. Normal systolic function. Atria The left atrium is mildly enlarged. Normal right atrium. No doppler evidence for ASD. Mitral Valve There is no mitral annular calcification. Normal mitral valve. Trivial mitral valve insufficiency. Tricuspid Valve The tricuspid valve is not well visualized. Trivial tricuspid valve insufficiency. Unable to estimate RV systolic pressure/pulmonary artery pressure due to technically difficult study. Aortic Valve The aortic valve is not well visualized. Pulmonic Valve The pulmonic valve is not well visualized. Great Vessels The aortic root is not well visualized. Pericardium/Pleural No pericardial effusion. Medication 20 gauge I.V. with prn adaptor inserted into left arm. Diluted definity 3ml given slow IV push to enhance endocardial definition. MMode/2D Measurements & Calculations LVIDd: 4.7 cm IVSd: 1.4 cm LA dimension: 4.3 cm LVIDs: 2.7 cm LVPWd: 1.1 cm FS: 43.3 % LAV(MOD-bp): 49.0 ml LA A4 area: 20.4 cm2 RA A4 area: 19.8 cm2 LAV(MOD-bp) Indexed: 18.5 ml/m2 LAV(MOD-sp2): 42.6 ml LAV(MOD-sp4): 58.5 ml Time Measurements MV dec time: 0.28 sec Doppler Measurements & Calculations MV E max ramón: 100.9 cm/sec Lat Peak E' Ramón: 12.9 cm/sec Med Peak E' Ramón: 10.8 cm/sec MV A max ramón: 87.4 cm/sec E/E' lat: 7.8 E/E' med: 9.4 MV E/A: 1.2 MV V2 max: 114.1 cm/sec MV dec slope: 366.9 cm/sec2 Ao V2 max: 198.9 cm/sec MV max P.2 mmHg Ao max P.8 mmHg MV V2 mean: 64.9 cm/sec MV mean P.0 mmHg MV V2 VTI: 36.1 cm PA V2 max: 158.2 cm/sec PA V2 mean: 104.2 cm/sec ECHO/Echo Complete W/ Contrast Interpretation Summary The study was technically difficult. Contrast injection was performed. Left ventricular systolic function is normal. The estimated ejection fraction is 65 %. D shaped septum in systole and diastole. Mildly dilated right ventricle. The left atrium is mildly enlarged. Trivial mitral valve insufficiency. Trivial tricuspid valve insufficiency. Unable to estimate RV systolic pressure/pulmonary artery pressure due to techni jorge a difficult study. No evidence for diastolic dysfunction. Ordering Physician: Alesia Morales Referring Physician: Alesia Morales Performed By: Ridge Beckman RCS
== END | disposition home or self-care (01) ==
LOC: CVS 13:54
PROVIDERS: PCP Family Medicine; Referring Provider Nurse Practitioner Acute Care; Visit Provider Nurse Practitioner Acute Care
DX: R06.02 Shortness of breath (principal)
CPT/HCPCS: 93306; Q9957; A4216; C8929

== ENCOUNTER 2023-05-09 20:54 | Observation (INO) | payer MEDICARE, SELFPAY ==
[2023-05-09] VITALS (7 sets, daily range): BP systolic 128–160; BP diastolic 79–94; PULSE 74–98; RESP 12–20; TEMP 36.4–36.6; O2SAT 94–100; BMI 45.2; BMI 44.8
--- NOTE | 2023-05-09 21:12 | EKG12_ITS ---
Test Reason : SOB Blood Pressure : / mmHG Vent. Rate : 082 BPM Atrial Rate : 082 BPM P-R Int : 160 ms QRS Dur : 132 ms QT Int : 378 ms P-R-T Axes : 049 098 037 degrees QTc Int : 441 ms Sinus rhythm with occasional Premature ventricular complexes Right bundle branch block Septal infarct , age undetermined Abnormal ECG Confirmed by INES STEVENS, ADRY ([id number]), editor index SHANTI FINE ([id number]) on 05/11/2023 10:17:05 AM Referred By: KATHIE Confirmed By:ADRY CHACON MD
--- NOTE | 2023-05-09 21:13 | EDS_ITS ---
HPI History of Present Illness Chief Complaint: Shortness of Breath Detail of Chief Complaint: Shortness of breath Informant: patient Onset/Context/Timing Onset: Today Narrative Narrative: Patient presents to the emergency department via EMS from home. His melanie?jarad called EMS because she felt like he was acting like when he gets elevated CO2. Patient has history of COPD and is normally on 3 to 4 L of home O2. He uses BiPAP at home frequently. Patient denies any fever or significant cough. He denies chest pain. He denies gaining weight or leg edema out of the ordinary. Patient does take Eliquis for history of PE and has been compliant with it. [facility] Medical History Acute respiratory failure with hypoxia and hypercapnia Anxiety BiPAP (biphasic positive airway pressure) dependence Blood disorder Cardiology follow-up encounter Chronic hypoxemic respiratory failure Chronic respiratory failure with hypoxia Closed fracture dislocation of joint of left lower extremity Closed fracture of left tibial plateau Congestive heart failure Congestive heart failure (CHF) COPD (chronic obstructive pulmonary disease) Depression Former smoker History of echocardiogram History of edema History of pain when walking HTN (hypertension) Hypertension Incarcerated umbilical hernia Obesities, morbid Obesity hypoventilation syndrome On home oxygen therapy LAYLA (obstructive sleep apnea) Other specified injury of left quadriceps muscle, fascia and tendon, initial encounter Pulmonary embolism Pulmonary HTN Pulmonary hypertension Seasonal allergies Stage 4 very severe COPD by GOLD classification Stage 4 very severe COPD by GOLD classification Tobacco dependence Uses wheelchair Home Medications spironolactone 25 mg tablet 25 mg PO BID bp 12/02/15 [History Last Taken 01/01/23] metoprolol succinate 50 mg tablet,extended release 24 hr 50 mg PO BID Heart 09/13/18 [History Last Taken 01/01/23] bupropion HCl 150 mg 24 hr tablet, extended release (Wellbutrin XL) 150 mg PO BID mental health 10/11/21 [History Last Taken 01/01/23] acetaminophen 500 mg tablet 1,000 mg PO Q6H PRN Pain 11/04/21 [History Last Taken 11/07/21 20:00] cyanocobalamin (vitamin B-12) 500 mcg tablet 500 mcg PO DAILY SUPPLEMENT 11/08/21 [History Last Taken 01/01/23] sertraline 100 mg tablet 100 mg PO DAILY mental health 01/23/22 [History Last Taken 01/01/23] albuterol sulfate 2.5 mg/3 mL (0.083 %) solution for nebulization 2.5 mg (3 mL) inhalation Q4H PRN shortness of breath or wheezing #360 mL 04/20/22 [Rx Last Taken 01/01/23] montelukast 10 mg tablet (Singulair) 10 mg PO QPM COPD #30 tabs 06/30/22 [Rx Last Taken 12/31/22] albuterol sulfate 90 mcg/actuation aerosol inhaler (Ventolin HFA) 2 puff inhalation Q4H PRN shortness of breath or wheezing #18 grams 09/08/22 [Rx Last Taken 01/01/23] mepolizumab 100 mg/mL subcutaneous auto-injector (Nucala) 300 mg subcut Q4W asthma 11/05/22 [History Last Taken 12/10/22] apixaban 5 mg tablet (Eliquis) 5 mg PO BID #74 tabs 11/08/22 [Rx Last Taken 01/01/23] guaifenesin 1,200 mg tablet, extended release 12 hr 1,200 mg PO Q12H PRN Cough #14 tabs 11/08/22 [Rx Last Taken 12/31/22] losartan 25 mg tablet 25 mg PO DAILY #30 tabs 11/08/22 [Rx Last Taken 01/01/23] sennosides 8.6 mg-docusate sodium 50 mg tablet (Stool Softener-Stimulant Laxative) 2 tab PO BID PRN PRN Constipation #0 tabs 11/08/22 [Rx Last Taken Unknown] torsemide 20 mg tablet 20 mg PO BID #60 tabs 11/08/22 [Rx Last Taken 12/31/22] budesonide-formoterol HFA 160 mcg-4.5 mcg/actuation aerosol inhaler (Symbicort) 2 puff inhalation BID BREATHING #10.2 grams 12/04/22 [Rx Last Taken 01/01/23] furosemide 40 mg tablet 40 mg PO DAILY FLUID 01/01/23 [History Last Taken 12/31/22] [id number]-tlrft acid-vit K-lycop 400 mcg-20 mcg-370 mcg tablet (Men's 50 Plus Multivitamin) 1 tab PO DAILY SUPPLEMENT 01/01/23 [History Last Taken 12/31/22] ipratropium 0.5 mg-albuterol 3 mg (2.5 mg base)/3 mL nebulization soln 3 ml inhalation Q4H PRN Wheezing #360 mL 03/13/23 [Rx Last Taken Unknown] prednisone 10 mg tablet 10 mg PO DAILY #40 tabs 03/13/23 [Rx Last Taken Unknown] cetirizine 10 mg tablet 10 mg PO DAILY #30 tabs 04/10/23 [Rx Last Taken Unknown] oxycodone 5 mg tablet 5 mg PO TID PRN Shortness Of Breath 05/09/23 [History Last Taken Unknown] Allergy/AdvReac Type Severity Reaction Status Date / Time clarithromycin [From Biaxin] Allergy Hives Verified 05/09/23 21:02 Penicillins Allergy Hives Verified 05/09/23 21:02 Family History Mother Diabetes Breast cancer Heart disease Hypertension COPD (chronic obstructive pulmonary disease) Asthma Father Hypertension CVA (cerebral vascular accident) Surgical History History of hernia repair (~08/2018) History of tonsillectomy History of tooth extraction Hx of cardiac cath Social History household members: spouse Smoking Status: Light Smoker (<10/day) how long ago did patient quit smoking: Patient admits to smoking 1 cigarette to 2 cigarettes weekly second hand exposure: Yes quit status: has quit before alcohol intake: never substance use type: does not use ROS ROS ED Review of Systems ROS Unobtainable: other Constitutional Constitutional ED: Reports lethargy; Denies chills, fever(s), sweats or weight loss Eyes Eyes: Denies blurry vision, change in vision or diplopia ENT ENT ED: Denies rhinorrhea or sore throat Cardiovascular Cardiovascular: Denies chest pain, orthopnea or racing heartbeat Respiratory/Chest Respiratory/Chest: Reports dyspnea and dyspnea on exertion; Denies cough, orthopnea or sputum Gastrointestinal Gastrointestinal: Denies abdominal pain, diarrhea, nausea or vomiting Genitourinary Genitourinary ED: Denies dysuria, hematuria or urinary frequency Musculoskeletal Musculoskeletal: Denies arthralgias, back pain, myalgias or neck pain Integumentary Denies abscess, Abrasions or rash Neurologic Neurologic: Denies headache(s) or weakness Psychiatric Psychiatric: Denies anxiety, depression or suicidal thoughts Endocrine Endocrinology: Denies polydipsia, polyphagia or polyuria Hematologic/Lymphatic Hematologic/Lymphatic: Denies easy bleeding, easy bruising or lymphadenopathy Allergic/Immunologic Allergic/Immunologic ED: Denies mouth swelling, tongue swelling or urticaria EXAM Physical Exam Const Vital Signs: 05/09/23 20:55 05/09/23 21:00 05/09/23 21:05 Temperature 97.8 F Temperature Source Temporal Pulse Rate 98 77 Respiratory Rate 18 19 H Respiratory Effort Short of Breath Labored Respiratory Depth Deep Respiratory Pattern Tachypnea Blood Pressure 160/94 H Blood Pressure Mean 116 Pulse Ox 100 97 Oxygen Delivery Method Non-Rebreather Nasal Cannula Oxygen Flow Rate (L/min) 15 6 Fraction of Inspired Oxygen (FIO2) 40 05/09/23 21:36 05/09/23 21:59 05/09/23 22:00 Temperature 98 F 98 F Temperature Source Temporal Temporal Pulse Rate 74 94 94 Respiratory Rate 19 H 20 H 19 H Respiratory Effort Respiratory Depth Respiratory Pattern Blood Pressure 130/83 H 128/79 H Blood Pressure Mean 98 95 Pulse Ox 95 94 Oxygen Delivery Method Bi-pap Bi-pap Oxygen Flow Rate (L/min) Fraction of Inspired Oxygen (FIO2) Positive well nourished and well developed General Appearance ED: well developed and NAD HEENT Reports TM's clear and moist mucous membranes normocephalic and atraumatic; Negative for trauma or tenderness Tympanic Membrane ED: Yes TM's clear Eyes PERRL and EOMs intact bilaterally General Eye ED: Negative for pale conjunctiva or scleral icterus Neck no lymphadenopathy, supple and no JVD General: Negative for tenderness Chest Wall inspection of chest normal and palpation of chest normal Chest: Negative for tenderness Resp normal respiratory effort and No clear to auscultation bilaterally Resp Narrative: Patient with tachypnea and mild conversational dyspnea. Effort and Inspection: Negative for respiratory distress or pain with movement Auscultation: wheezes and diminished lung sounds; Negative for rhonchi Cardio regular rate, regular rhythm, S1 normal heart sound, S2 normal heart sound and no murmurs Peripheral Pulses: pulses 2+ throughout GI normal to inspection, nondistended, normoactive bowel sounds, soft to palpation, non-tender, non-distended and no masses Back/Spine no CVA tenderness and no thoracic nor lumbar tenderness Extremity normal to inspection General Extremety ED: Negative for edema General Extremity: Negative for edema Neuro oriented x3, CN's II-XII intact bilaterally, no sensory deficits noted and gait normal Sensorium / Orientation: awake, alert, oriented to person, oriented to place and oriented to time Motor Exam: strength 5/5 throughout and strength abnormal Psych mental status grossly normal Skin no rashes or lesions noted and no wounds MDM MDM MDM Narrative Medical decision making narrative: Presents with increased somnolence and increased difficulty breathing. He has history of COPD. EMS noted that he was mottled from the chest down. They gave him DuoNeb aerosols and started him on Solu-Medrol. On arrival he is on 6 L and saturating in the 90s. Patient tells me his dyspnea started today. Girlfriend apparently had a hard time arousing him and typically gets this way when his CO2 is elevated. Patient refusing to allow an ABG. CBC with differential obtained showed an elevated white count of 15.0 however he is on prednisone currently. Chemistries unremarkable. We did do a VBG and his CO2 was 79. Patient had a chest x-ray that showed no acute disease process. EKG showed a sinus rhythm with a rate of 82 bpm with occasional PVCs and right bundle branch block. Patient was placed on BiPAP. Melanie? still states that he is not himself. We did obtain a CT scan of the brain without contrast given that he is on Eliquis to rule out intracranial hemorrhage or other explanation for his increased somnolence and mental status change. On my interpretation I do not appreciate any hemorrhage or significant abnormality however official report pending from radiology. I did discuss case with hospitalist to evaluate patient for admission. Lab Data Attestation: I reviewed the patient's lab results. Labs: Laboratory Results - last 24 hr 05/09/23 05/09/23 05/09/23 21:10 21:10 21:10 WBC 15.0 H RBC 4.62 Hgb 14.9 Hct 50.7 MCV 109.7 H MCH 32.3 H MCHC 29.4 L RDW Std Deviation 52.5 H RDW Coeff of Valerie 12.9 Plt Count 221 MPV 10.6 Immature Gran % (Auto) 0.800 Neut % (Auto) 79.1 H Lymph % (Auto) 12.8 L [place] % (Auto) 6.7 Eos % (Auto) 0.1 Baso % (Auto) 0.5 Absolute Neuts (auto) 11.9 H Absolute Lymphs (auto) 1.92 Nucleated RBC % 0 Sodium 135 L Potassium 4.1 Chloride 87 L Carbon Dioxide > 45.0 H* Anion Gap TNP BUN 13 Creatinine 0.78 Estim Creat Clear Calc 118.83 Est GFR (MDRD) Af Amer 133 Est GFR (MDRD) Non-Af 110 BUN/Creatinine Ratio 16.6 Glucose 136 H Calcium 9.1 Troponin I High Sens 18 B-Natriuretic Peptide 84.9 ABG Data ABG results: ABG 05/09/23 21:22 Specimen Type PAPITO VBG pH 7.36 VBG pO2 45 H VBG HCO3 44 H VBG Total CO2 46 H VBG O2 Sat (Calc) 76 H VBG Base Excess 18 H POC Mix VBG pCO2 Pt Tmp 78.7 H* Respiration Rate 12 O2 Delivery Device BiPAP Crit Call To/Read Back Yes Blood Gas Notified Whom ungur Blood Gas Notified Time 21:23:38 Clinical Comments 20. 12. 40% Radiography Diagnostic Testing: Clinical Impression(s) from Imaging Studies Chest X-Ray 05/09/23 21:23 IMPRESSION: There are findings consistent with COPD. There is no evidence of acute chest disease. Electronically Signed: Ramin Marley MD at 21:46 EDT , 1 view chest x-ray obtained interpreted by myself as no evidence of infiltrate or acute disease process. Radiology in agreement. EKG Initial EKG: Attestation: I personally reviewed and interpreted this EKG as follows: Comments: Sinus rhythm with a rate of 82 bpm with PVCs and right bundle branch block Discharge Plan Dx/Rx/DC Orders Clinical Impression: Altered mental status, Leukocytosis, Hypercapnia, COPD with acute exacerbation Disposition Disposition: [facility]
--- NOTE | 2023-05-09 21:22 | CPS ---
pt refused abg- venous gas done -dr cameron
--- NOTE | 2023-05-09 21:23 | RAD_ITS ---
STUDY: X-RAY CHEST REASON FOR EXAM: Male, 52 years old. dyspnea TECHNIQUE: Single AP portable view of the chest. COMPARISON: 01/01/2023. FINDINGS: There is hyperinflation of the lungs consistent with chronic obstructive lung disease (COPD). No infiltrates or effusions. There is no demonstrated pleural abnormality. Normal size heart. Normal mediastinum and lani. There is prominence of the pulmonary hilar arteries without peripheral pulmonary vascular congestion, suggesting pulmonary hypertension. Normal visualized aortic arch and descending thoracic aorta. Normal visualized thoracic spine. Normal visualized ribs, clavicles, and shoulders. There is no demonstrated abnormality of the visualized soft tissue structures of the upper abdomen. RAD/Chest 1 View (Portable) IMPRESSION: There are findings consistent with COPD. There is no evidence of acute chest disease. Electronically Signed: Ramin Marley MD at 21:46 EDT ,
[2023-05-09 21:26] LABS: Blood Gas Specimen Type VEN; O2 Delivery Device BiPAP; RR 12; VBG BASE EXCESS 18 mmol/L (-1.0-3.5); VBG Bicarbonate 44 mmol/L (22-26); VBG PO2 45 mmHg (25-40); VBG SO2 76 % (50-70); VBG TCO2 46 mmol/L (23-33); VBG pCO2 78.7 mmHg (41-51); VBG pH 7.36 (7.32-7.42)
[2023-05-09] MEDS: Albuterol 2.5 MG/3 ML VIAL.NEB. INHALATION ×3 (21:34)
[2023-05-09 21:39] LABS: Absolute Lymphocyte Count 1.92 X10^3/uL (0.83-4.51); Absolute Neutrophil Count 11.9 X10^3/uL (2.0-7.7); Basophil# 0.07 X10^3/uL; Basophil% 0.5 % (0-1); Eosinophil# 0.02 X10^3/uL; Eosinophils% 0.1 % (0-5); Hematocrit 50.7 % (40-54); Hemoglobin 14.9 g/dL (13.0-16.5); Lymphocyte # 1.92 X10^3/ul (0.83-4.51); Lymphocyte % 12.8 % (19-41); Mean Corp Hgb Conc 29.4 g/dL (32-36); Mean Corpuscular Hgb 32.3 pg (27.0-32.0); Mean Corpuscular Volume 109.7 fL (80-94); Mean Platelet Vol. 10.6 fl (6.2-12.0); Monocyte% 6.7 % (0-10); NRBC Flagged by Analyzer 0 % (0-5); Neutrophil # 11.86 X10^3/uL (2.7-7.7); Neutrophil % 79.1 % (47-70); Platelet Count 221 K/mm3 (150-450); RBC Distribution Width CV 12.9 % (11.6-14.6); RBC Distribution Width SD 52.5 fl (35.1-43.9); Red Blood Count 4.62 M/mm3 (4.6-6.2)
[2023-05-09 22:05] LABS: BUN 13 mg/dL (7-18); BUN/Creat Ratio 16.6 RATIO (10-20); Calcium,Total 9.1 mg/dL (8.5-10.1); Carbon Dioxide > 45.0 mmol/L (21.0-32.0); Chloride 87 mmol/L (98-107); Creatinine, Serum 0.78 mg/dL (0.70-1.30); EST Glomerular Filtration Rate 110 mL/min (>60); Est Glom Filt Rate - Afr Amer 133 mL/min (>60); Estimated Creatinine Clearance 118.83 ml/min; Glucose 136 mg/dL (74-106); Potassium 4.1 mmol/L (3.5-5.1); Sodium Level 135 mmol/L (136-145); Troponin-I HS 18 pg/mL (3.0-78.0)
[2023-05-09 22:35] LABS: BNP,B-Type NATRIURETIC PEPTIDE 84.9 pg/mL (0-100)
--- NOTE | 2023-05-09 22:35 | CT_ITS ---
INDICATION: confusion, somnulance EXAMINATION: CT BRAIN - CT Head or Brain W/O Contrast Injection TECHNIQUE: Multiple axial images were obtained of the head without intravenous contrast. A radiation dose optimization technique was used for this scan. IV Contrast dosage and agent: None. COMPARISON: None FINDINGS: BRAIN PARENCHYMA: No intra- or extra-axial hemorrhage. No evidence of acute infarct. No intracranial mass or mass effect. Unremarkable white matter for age. There is preservation of the harding/white matter interface. Posterior fossa structures are unremarkable. CSF SPACES: Cerebral volume appropriate for age. No hydrocephalus. Basal cisterns are patent. CALVARIUM, SKULL BASE, PARANASAL SINUSES AND MASTOID AIR CELLS: No acute osseous finding. Par[place]al sinuses are clear. Mastoid air cells are clear. ORBITS: Both globes, extraocular muscles, optic nerves and retrobulbar fat appear unremarkable. ASPECTS Score for Acute Strokes: 10 CT/Brain/Head without Contrast IMPRESSION: No CT evidence of acute intracranial hemorrhage or injury. Electronically Signed: Joshua Bardales MD at 23:02 EDT ,
--- NOTE | 2023-05-09 23:07 | HP.PCM.HOS_ITS ---
HPI - General General Date of Admission: 05/09/23 Date of Service: 05/09/23 Chief Complaint: COPD HPI Narrative HARJIT ALBERTS, is a 52 M who presents with COPD exacerbation, and girlfriend concerned tonight that he was more lethargic. EMS brought him in, and was initially on 6 liters with sats 96-100%. No record of hypoxia. He did have some wheezing and was placed on BIPAP here in ED. Girlfriend states he is not himself (more lethargic) and this started today. She states it is similar to other times when he is retaining CO2. There were no reported fevers He takes albuterol, and Duonebs and symbicort at home, uses BIPAP all night and 3-4 hours a day, smokes 1 pack every 1-2 weeks. Denies sick contacts or recent travel. On Arrival VBG showed CO2 of 78. ABG was declined. The patient was given duonebs/solumedrol. CXR without lobar consolidations. [facility] Medical History Acute respiratory failure with hypoxia and hypercapnia Anxiety BiPAP (biphasic positive airway pressure) dependence Blood disorder Cardiology follow-up encounter Chronic hypoxemic respiratory failure Chronic respiratory failure with hypoxia Closed fracture dislocation of joint of left lower extremity Closed fracture of left tibial plateau Congestive heart failure Congestive heart failure (CHF) COPD (chronic obstructive pulmonary disease) Depression Former smoker History of echocardiogram History of edema History of pain when walking HTN (hypertension) Hypertension Incarcerated umbilical hernia Obesities, morbid Obesity hypoventilation syndrome On home oxygen therapy LAYLA (obstructive sleep apnea) Other specified injury of left quadriceps muscle, fascia and tendon, initial encounter Pulmonary embolism Pulmonary HTN Pulmonary hypertension Seasonal allergies Stage 4 very severe COPD by GOLD classification Stage 4 very severe COPD by GOLD classification Tobacco dependence Uses wheelchair Home Medications spironolactone 25 mg tablet 25 mg PO BID bp 12/02/15 [History Last Taken 01/01/23] metoprolol succinate 50 mg tablet,extended release 24 hr 50 mg PO BID Heart 09/13/18 [History Last Taken 01/01/23] bupropion HCl 150 mg 24 hr tablet, extended release (Wellbutrin XL) 150 mg PO BID mental health 10/11/21 [History Last Taken 01/01/23] acetaminophen 500 mg tablet 1,000 mg PO Q6H PRN Pain 11/04/21 [History Last Taken 11/07/21 20:00] cyanocobalamin (vitamin B-12) 500 mcg tablet 500 mcg PO DAILY SUPPLEMENT 11/08/21 [History Last Taken 01/01/23] sertraline 100 mg tablet 100 mg PO DAILY mental health 01/23/22 [History Last Taken 01/01/23] albuterol sulfate 2.5 mg/3 mL (0.083 %) solution for nebulization 2.5 mg (3 mL) inhalation Q4H PRN shortness of breath or wheezing #360 mL 04/20/22 [Rx Last Taken 01/01/23] montelukast 10 mg tablet (Singulair) 10 mg PO QPM COPD #30 tabs 06/30/22 [Rx L ast Taken 12/31/22] albuterol sulfate 90 mcg/actuation aerosol inhaler (Ventolin HFA) 2 puff inhalat ion Q4H PRN shortness of breath or wheezing #18 grams 09/08/22 [Rx Last Taken 01/01/23] mepolizumab 100 mg/mL subcutaneous auto-injector (Nucala) 300 mg subcut Q4W asthma 11/05/22 [History Last Taken 12/10/22] apixaban 5 mg tablet (Eliquis) 5 mg PO BID #74 tabs 11/08/22 [Rx Last Taken 01/01/23] guaifenesin 1,200 mg tablet, extended release 12 hr 1,200 mg PO Q12H PRN Cough #14 tabs 11/08/22 [Rx Last Taken 12/31/22] losartan 25 mg tablet 25 mg PO DAILY #30 tabs 11/08/22 [Rx Last Taken 01/01/23] sennosides 8.6 mg-docusate sodium 50 mg tablet (Stool Softener-Stimulant Laxative) 2 tab PO BID PRN PRN Constipation #0 tabs 11/08/22 [Rx Last Taken Unknown] torsemide 20 mg tablet 20 mg PO BID #60 tabs 11/08/22 [Rx Last Taken 12/31/22] budesonide-formoterol HFA 160 mcg-4.5 mcg/actuation aerosol inhaler (Symbicort) 2 puff inhalation BID BREATHING #10.2 grams 12/04/22 [Rx Last Taken 01/01/23] furosemide 40 mg tablet 40 mg PO DAILY FLUID 01/01/23 [History Last Taken 12/31/22] acwcgyojhota-vwg-urjpm acid-vit K-lycop 400 mcg-20 mcg-370 mcg tablet (Men's 50 Plus Multivitamin) 1 tab PO DAILY SUPPLEMENT 01/01/23 [History Last Taken 12/31/22] ipratropium 0.5 mg-albuterol 3 mg (2.5 mg base)/3 mL nebulization soln 3 ml inhalation Q4H PRN Wheezing #360 mL 03/13/23 [Rx Last Taken Unknown] prednisone 10 mg tablet 10 mg PO DAILY #40 tabs 03/13/23 [Rx Last Taken Unknown] cetirizine 10 mg tablet 10 mg PO DAILY #30 tabs 04/10/23 [Rx Last Taken Unknown] oxycodone 5 mg tablet 5 mg PO TID PRN Shortness Of Breath 05/09/23 [History Last Taken Unknown] Allergy/AdvReac Type Severity Reaction Status Date / Time clarithromycin [From Biaxin] Allergy Hives Verified 05/09/23 21:02 Penicillins Allergy Hives Verified 05/09/23 21:02 Family History Mother Diabetes Breast cancer Heart disease Hypertension COPD (chronic obstructive pulmonary disease) Asthma Father Hypertension CVA (cerebral vascular accident) Surgical History History of hernia repair (~08/2018) History of tonsillectomy History of tooth extraction Hx of cardiac cath Social History household members: spouse Smoking Status: Former smoker how long ago did patient quit smoking: Patient admits to smoking 1 cigarette to 2 cigarettes weekly second hand exposure: Yes quit status: has quit before alcohol intake: never substance use type: does not use ROS ROS Narrative Positives as above. Vital Signs Vital Signs Vital Signs: 05/09/23 20:55 05/09/23 21:00 05/09/23 21:05 Temperature 97.8 F Temperature Source Temporal Pulse Rate 98 77 Respiratory Rate 18 19 H Respiratory Effort Short of Breath Labored Respiratory Depth Deep Respiratory Pattern Tachypnea Blood Pressure 160/94 H Blood Pressure Mean 116 Pulse Ox 100 97 Oxygen Delivery Method Non-Rebreather Nasal Cannula Oxygen Flow Rate (L/min) 15 6 Fraction of Inspired Oxygen (FIO2) 40 05/09/23 21:36 05/09/23 21:59 05/09/23 22:00 Temperature 98 F 98 F Temperature Source Temporal Temporal Pulse Rate 74 94 94 Respiratory Rate 19 H 20 H 19 H Respiratory Effort Respiratory Depth Respiratory Pattern Blood Pressure 130/83 H 128/79 H Blood Pressure Mean 98 95 Pulse Ox 95 94 Oxygen Delivery Method Bi-pap Bi-pap Oxygen Flow Rate (L/min) Fraction of Inspired Oxygen (FIO2) 05/09/23 23:00 05/09/23 23:00 Temperature 97.6 F L 97.6 F L Temperature Source Temporal Temporal Pulse Rate 78 76 Respiratory Rate 18 18 Respiratory Effort Respiratory Depth Respiratory Pattern Blood Pressure 142/82 H 142/82 H Blood Pressure Mean 102 102 Pulse Ox 98 98 Oxygen Delivery Method Bi-pap Bi-pap Oxygen Flow Rate (L/min) Fraction of Inspired Oxygen (FIO2) Weight Weight: 333 lb 12.478 oz Body Mass Index (BMI) 45.2 Physical Exam Const alert, no apparent distress and well nourished HEENT normocephalic and head/scalp atraumatic Eyes PERRL and EOMs intact bilaterally Resp normal respiratory effort Auscultation: wheezes Cardio regular rate and regular rhythm GI normal to inspection, nondistended, normoactive bowel sounds Extremity normal to inspection Neuro Sensorium / Orientation: awake and alert Speech: speech normal Psych affect normal Results Medical Records Data Attestation: I reviewed the patient's medical records Lab / Micro Data Attestation: I reviewed the patient's lab results. Result Diagrams: 05/09/23 21:10 05/09/23 21:10 Labs: Laboratory Results - last 24 hr 05/09/23 21:10: WBC 15.0 H, RBC 4.62, Hgb 14.9, Hct 50.7, MCV 109.7 H, MCH 32.3 H, MCHC 29.4 L, RDW Std Deviation 52.5 H, RDW Coeff of Valerie 12.9, Plt Count 221, MPV 10.6, Immature Gran % (Auto) 0.800, Neut % (Auto) 79.1 H, Lymph % (Auto) 12.8 L, [place] % (Auto) 6.7, Eos % (Auto) 0.1, Baso % (Auto) 0.5, Absolute Neuts (auto) 11.9 H, Absolute Lymphs (auto) 1.92, Nucleated RBC % 0 05/09/23 21:10: Sodium 135 L, Potassium 4.1, Chloride 87 L, Carbon Dioxide > 45.0 H*, Anion Gap TNP, BUN 13, Creatinine 0.78, Estim Creat Clear Calc 118.83, Est GFR (MDRD) Af Amer 133, Est GFR (MDRD) Non-Af 110, BUN/Creatinine Ratio 16.6, Glucose 136 H, Calcium 9.1, Troponin I High Sens 18 05/09/23 21:10: B-Natriuretic Peptide 84.9 ABG Data ABG results: ABG 05/09/23 21:22 Specimen Type PAPITO VBG pH 7.36 VBG pO2 45 H VBG HCO3 44 H VBG Total CO2 46 H VBG O2 Sat (Calc) 76 H VBG Base Excess 18 H POC Mix VBG pCO2 Pt Tmp 78.7 H* Respiration Rate 12 O2 Delivery Device BiPAP Crit Call To/Read Back Yes Blood Gas Notified Whom ungur Blood Gas Notified Time 21:23:38 Clinical Comments 20. 12. 40% Attestation: I personally reviewed and interpreted this ABG as follows: Radiology Impression Chest X-Ray 05/09/23 21:23 IMPRESSION: There are findings consistent with COPD. There is no evidence of acute chest disease. Electronically Signed: Ramin Marley MD at 21:46 EDT , Brain CT 05/09/23 22:35 IMPRESSION: No CT evidence of acute intracranial hemorrhage or injury. Electronically Signed: Joshua Bardales MD at 23:02 EDT , Assessment & Plan Assessment/Plan (1) Hypercapnia: (2) LAYLA (obstructive sleep apnea): (3) SOB (shortness of breath): (4) COPD with acute exacerbation: (5) HTN (hypertension): QUALIFIERS: Hypertension type: essential hypertension Qualified Code(s): I10 - Essential (primary) hypertension (6) Obesities, morbid: PLAN: Plan COPD exacerbation -Patient has no signs of acute respiratory failure -PCO2 on VBG in line with prior readings from ABGs , no acute retention from known baseline per our VBG -Patient wears 2-4 L of oxygen at baseline -COVID and flu are negative. no fever. -Check strep pneumo and Legionella antigens -Continue steroids 60 mg daily PO x 5 days -Aggressive pulmonary toilet with DuoNebs and as needed albuterol -Incentive spirometry -Mucinex 1200 twice daily -Pep therapy. BIPAP at night and prn daytime. Leukocytosis -Doubt infectious, also has elevated WBC on prior labs. Chronic metabolic alkalosis -Secondary to chronic hypercapnia. Around baseline. -A1c recently is 5.7 Asthma/COPD Gold stage 4 -Documented as end-stage by pulmonary medicine -Treatment as above for exacerbation -Restart inhalers at discharge -Patient is on Nucala as an outpatient once monthly Bilateral pulmonary emboli -Patient has been compliant with his Eliquis -Continue DOAC LAYLA/suspected OHS -Continue BiPAP 12/11 per home regimen with naps and nightly -Currently on continuous BiPAP so we can get of the head of his mild respiratory acidosis Combined right-sided and diastolic heart failure -Continue home torsemide -Echocardiogram 04/13/2021 shows an EF of 65% with stage II diastolic dysfunction, structurally normal valves and a pulmonary artery systolic pressure of 60 mmHg Hypertension -Continue metoprolol -Continue losartan -Continue diuresis -Continue Aldactone -Resume torsemide Seasonal allergies -Continue home Singulair Tobacco abuse -Patient is down to 1 to 2 cigarettes a day -Had stop smoking previously -Recommend smoking cessation -No need for nicotine replacement at this time Depression/anxiety -Continue home Wellbutrin -Continue home Zoloft DVT prophylaxis -Continue full anticoagulation with Eliquis CODE STATUS -Full code as verified Charges/Coding Visit Charges Inpatient E&M: 44483 Init Hosp L3
[2023-05-09] MEDS: Montelukast 10 MG Tablet PO (23:50)
[2023-05-10] VITALS (8 sets, daily range): BP systolic 115–165; BP diastolic 82–116; PULSE 69–97; RESP 12–23; TEMP 36.1–36.4; O2SAT 93–97
[2023-05-10] MEDS: Ipratropium/Albuterol Sulfate 3 ML AMPUL.NEB INHALATION ×2 (01:29→07:17)
[2023-05-10] MEDS: Budesonide Respules 0.5 MG/2 ML AMPUL.NEB. INHALATION (07:17)
--- NOTE | 2023-05-10 07:24 | PN.HOSP_ITS ---
Reason for Visit Reason for Visit: Diagnoses Morbid (severe) obesity due to excess calories (05/09/23) Obstructive sleep apnea (adult) (pediatric) (05/09/23) Essential (primary) hypertension (05/09/23) Chronic obstructive pulmonary disease with (acute) exacerbation (05/09/23) Shortness of breath (05/09/23) Other abnormalities of breathing (05/09/23) Subjective Subjective Patient is a 52-year-old gentleman with multiple comorbidities who presented with progressive shortness of breath and assessment of COPD with acute exacerbation made admitted to intensive care unit where patient is currently being managed Objective Data Objective Data Vital Signs: Vital Signs Temp Pulse Resp BP Pulse Ox O2 Del Method O2 Flow Rate 96.9 F L 70 23 H 115/82 H 94 Bi-pap 2 05/10/23 00:00 05/10/23 04:54 05/10/23 04:54 05/10/23 04:00 05/10/23 04:54 05/10/23 04:00 05/10/23 00:00 FiO2 35 05/10/23 04:54 Oxygen Flow Rate (L/min) 2 Oxygen Delivery Method Bi-pap Weight: 150 kg Body Mass Index (BMI) 44.8 Intake & Output: Intake and Output for Last 24 Hours 05/08/23 05/09/23 05/10/23 23:59 23:59 23:59 Intake Total 120 / 120 Output Total 300 / 300 Balance -180 / -180 Lab / Micro Data Result Diagrams: 05/09/23 21:10 05/09/23 21:10 Labs: Laboratory Results - last 24 hr 05/09/23 21:10: WBC 15.0 H, RBC 4.62, Hgb 14.9, Hct 50.7, MCV 109.7 H, MCH 32.3 H, MCHC 29.4 L, RDW Std Deviation 52.5 H, RDW Coeff of Valerie 12.9, Plt Count 221, MPV 10.6, Immature Gran % (Auto) 0.800, Neut % (Auto) 79.1 H, Lymph % (Auto) 12.8 L, [place] % (Auto) 6.7, Eos % (Auto) 0.1, Baso % (Auto) 0.5, Absolute Neuts (auto) 11.9 H, Absolute Lymphs (auto) 1.92, Nucleated RBC % 0 06/14/23 21:10: Sodium 135 L, Potassium 4.1, Chloride 87 L, Carbon Dioxide > 45.0 H*, Anion Gap TNP, BUN 13, Creatinine 0.78, Estim Creat Clear Calc 118.83, Est GFR (MDRD) Af Amer 133, Est GFR (MDRD) Non-Af 110, BUN/Creatinine Ratio 16.6, Glucose 136 H, Calcium 9.1, Troponin I High Sens 18 05/09/23 21:10: B-Natriuretic Peptide 84.9 ABG Data ABG results: ABG 05/09/23 21:22 Specimen Type PAPITO VBG pH 7.36 VBG pO2 45 H VBG HCO3 44 H VBG Total CO2 46 H VBG O2 Sat (Calc) 76 H VBG Base Excess 18 H POC Mix VBG pCO2 Pt Tmp 78.7 H* Respiration Rate 12 O2 Delivery Device BiPAP Crit Call To/Read Back Yes Blood Gas Notified Whom ungur Blood Gas Notified Time 21:23:38 Clinical Comments 20. 12. 40% Radiography Diagnostic Testing: Radiology Impression Chest X-Ray 05/09/23 21:23 IMPRESSION: There are findings consistent with COPD. There is no evidence of acute chest disease. Electronically Signed: Ramin Marley MD at 21:46 EDT , Brain CT 05/09/23 22:35 IMPRESSION: No CT evidence of acute intracranial hemorrhage or injury. Electronically Signed: Joshua Bardales MD at 23:02 EDT , Physical Exam Narrative GENERAL: Somewhat lethargic HEENT: Atraumatic; normocephalic EYES; Anicteric, Normal Conjunctiva NECK; supple, normal thyroid, RESPIRATORY: Diminished to auscultation CARDIOVASCULAR: Regular S1 S2, GI: soft, normoactive bowel sounds, : No Renal angle tenderness; EXTREMITIES: No edema, no clubbing, MUSCULOSKELETAL: no muscle wasting NEURO: Awake; no lateralizing signs. SKIN: No Rash PSYCH; Flat affect Assessment & Plan Assessment/Plan (1) COPD with acute exacerbation: PLAN: Plan Patient is a 52-year-old gentleman with multiple comorbidities who presented with progressive shortness of breath and assessment of COPD with acute exacerbation made admitted to intensive care unit where patient is currently being managed 1. COPD with acute exacerbation ? Admitted to the intensive care unit patient managed with systemic steroids, antibiotics, aerosol treatment as well as BiPAP therapy and oxygen which has been titrated to keep saturation greater than 90. Patient is followed by pulmonary medicine as outpatient consult placed to Dr. Fernandes 2. Patient chronic hypoxic respiratory failure ? Patient is on 2 to 4 L of oxygen at baseline 3. History of pulmonary embolism ? Diagnosed in October 2022 patient is on systemic anticoagulation with apixaban did continue 4. Hypertension - Blood pressure controlled, home medications continued with dose adjustment as needed 5. Obstructive sleep apnea ? Patient is on BiPAP at night 6. Chronic congestive heart failure with preserved ejection fraction ?-Echocardiogram 04/13/2021 shows an EF of 65% with stage II diastolic dysfunction, structurally normal valves and a pulmonary artery systolic pressure of 60 mmHg. Patient is on diuretics did continue 7. Tobacco dependence - Counseled on cessation, offered nicotine patch for tobacco cravings 8. Seasonal allergies -Continue home Singulair 9. Depression/anxiety -Patient is on Wellbutrin as well as Zoloft continued 10. DVT prophylaxis ? Already on apixaban Time spent in the patient's overall evaluation,decision-making process, review of diagnostic data, adjustment of management, discussion with other providers, nursing nursing and ancillary staff involved in patient's care documentation, 50 Minutes Charges/Coding Visit Charges Inpatient E&M: 35829 Subs Hosp L3
--- NOTE | 2023-05-10 08:13 | EX.PCM.CONCC ---
Assessment & Plan Assessment/Plan (1) Chronic respiratory failure with hypoxia: PLAN: Plan RECOMMENDATIONS: 1. Continue bronchodilators and corticosteroid per home regimen. 2. Continue baseline 3 L/min oxygen requirement. 3. Continue nocturnal BiPAP 18/12 per home regimen. 4. Recommend dose de-escalation of opiate pain medications. 5. Outpatient pulmonary follow-up as scheduled. 6. We will sign off. Please call with any questions. IMPRESSIONS: 1. Encephalopathy The patient has baseline CO2 retention with recent dose adjustment to his outpatient narcotic pain regimen by palliative care medicine. I do suspect that this change in his medication regimen likely precipitated his change in mental state. The patient was placed briefly on BiPAP with subsequent improvement in respiratory status. The patient is currently alert and appropriately interactive. He is maintaining appropriate oxygen saturations on his baseline 3 L/min requirement. No acute cardiopulmonary process was identified on chest imaging. Therefore, I do not see an indication for antimicrobials. It is reasonable to continue scheduled bronchodilators and steroids, with plans for the patient to follow-up in the pulmonary medicine clinic as scheduled. I would recommend that the patient's dose of his home opiate pain medications be de-escalated to prevent a situation like this from happening again in the future. 2. Chronic combined respiratory failure in the setting of end-stage COPD Continue baseline oxygen requirement of 3 L/min along with BiPAP therapy nightly and as needed throughout the day. Continue bronchodilators per home regimen. 3. History of obstructive sleep apnea/pulmonary hypertension/VTE/morbid obesity Complicates care, management, recovery and prognosis. Continue nocturnal BiPAP therapy per home regimen. Recommend withdrawal of opiate pain medications. This note was generated with Queralt dictation software. It may contain incorrect words, spelling, and punctuation that were not noted in checking the note before signing. HPI Consult Data Date of Consult: 05/10/23 HPI Narrative Reason for Consultation: COPD exacerbation HPI Narrative: The patient is a 52-year-old male, with a history as outlined below, who presented to the emergency department via EMS on May 09 with altered mental status. The patient is currently followed by Dr. Benavides in the pulmonary medicine clinic due to a history of end-stage COPD, pulmonary hypertension, obstructive sleep apnea and chronic hypoxemic respiratory failure. The patient is currently active with [facility]. 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 He has been compliant with his prescribed inhaler regimen. The patient has also been compliant with his prescribed BiPAP therapy with a pressure support of 18/12 cm of water. His was apparently concerned that his mentation was altered. However, the patient reported that his palliative care provider recently increased the frequency of his oxycodone. On presentation to the emergency department, the patient was noted to be afebrile hemodynamically stable. Initial laboratory evaluation revealed a white blood cell count of 15,000. Chemistry profile was notable for a bicarbonate of greater than 45. Creatinine was within normal limits. Troponin and BNP were unremarkable. CT head was unremarkable. Chest x-ray demonstrated hyperinflated lung ring without any acute cardiopulmonary process. The patient was placed on BiPAP therapy and administered bronchodilators. Upon my evaluation of the patient, he reported that he felt much better. He had been removed from BiPAP and was maintaining appropriate saturations on his baseline 3 L/min oxygen requirement. [facility] Medical History Acute respiratory failure with hypoxia and hypercapnia Anxiety BiPAP (biphasic positive airway pressure) dependence Blood disorder Cardiology follow-up encounter Chronic hypoxemic respiratory failure Chronic respiratory failure with hypoxia Closed fracture dislocation of joint of left lower extremity Closed fracture of left tibial plateau Congestive heart failure Congestive heart failure (CHF) COPD (chronic obstructive pulmonary disease) Depression Former smoker History of echocardiogram History of edema History of pain when walking HTN (hypertension) Hypertension Incarcerated umbilical hernia Obesities, morbid Obesity hypoventilation syndrome On home oxygen therapy LAYLA (obstructive sleep apnea) Other specified injury of left quadriceps muscle, fascia and tendon, initial encounter Pulmonary embolism Pulmonary HTN Pulmonary hypertension Seasonal allergies Stage 4 very severe COPD by GOLD classification Stage 4 very severe COPD by GOLD classification Tobacco dependence Uses wheelchair Home Medications spironolactone 25 mg tablet 25 mg PO BID bp 12/02/15 [History Last Taken 01/01/23] metoprolol succinate 50 mg tablet,extended release 24 hr 50 mg PO BID Heart 09/13/18 [History Last Taken 01/01/23] bupropion HCl 150 mg 24 hr tablet, extended release (Wellbutrin XL) 150 mg PO BID mental health 10/11/21 [History Last Taken 01/01/23] acetaminophen 500 mg tablet 1,000 mg PO Q6H PRN Pain 11/04/21 [History Last Taken 11/07/21 20:00] cyanocobalamin (vitamin B-12) 500 mcg tablet 500 mcg PO DAILY SUPPLEMENT 11/08/21 [History Last Taken 01/01/23] sertraline 100 mg tablet 100 mg PO DAILY mental health 01/23/22 [History Last Taken 01/01/23] albuterol sulfate 2.5 mg/3 mL (0.083 %) solution for nebulization 2.5 mg (3 mL) inhalation Q4H PRN shortness of breath or wheezing #360 mL 04/20/22 [Rx Last Taken 01/01/23] montelukast 10 mg tablet (Singulair) 10 mg PO QPM COPD #30 tabs 06/30/22 [Rx Last Taken 12/31/22] albuterol sulfate 90 mcg/actuation aerosol inhaler (Ventolin HFA) 2 puff inhalation Q4H PRN shortness of breath or wheezing #18 grams 09/08/22 [Rx Last Taken 01/01/23] mepolizumab 100 mg/mL subcutaneous auto-injector (Nucala) 300 mg subcut Q4W asthma 11/05/22 [History Last Taken 12/10/22] apixaban 5 mg tablet (Eliquis) 5 mg PO BID #74 tabs 11/08/22 [Rx Last Taken 01/01/23] guaifenesin 1,200 mg tablet, extended release 12 hr 1,200 mg PO Q12H PRN Cough #14 tabs 11/08/22 [Rx Last Taken 12/31/22] losartan 25 mg tablet 25 mg PO DAILY #30 tabs 11/08/22 [Rx Last Taken 01/01/23] sennosides 8.6 mg-docusate sodium 50 mg tablet (Stool Softener-Stimulant Laxative) 2 tab PO BID PRN PRN Constipation #0 tabs 11/08/22 [Rx Last Taken Unknown] torsemide 20 mg tablet 20 mg PO BID #60 tabs 11/08/22 [Rx Last Taken 12/31/22] budesonide-formoterol HFA 160 mcg-4.5 mcg/actuation aerosol inhaler (Symbicort) 2 puff inhalation BID BREATHING #10.2 grams 12/04/22 [Rx Last Taken 01/01/23] furosemide 40 mg tablet 40 mg PO DAILY FLUID 01/01/23 [History Last Taken 12/31/22] [id number] acid-vit K-lycop 400 mcg-20 mcg-370 mcg tablet (Men's 50 Plus Multivitamin) 1 tab PO DAILY SUPPLEMENT 01/01/23 [History Last Taken 12/31/22] ipratropium 0.5 mg-albuterol 3 mg (2.5 mg base)/3 mL nebulization soln 3 ml inhalation Q4H PRN Wheezing #360 mL 03/13/23 [Rx Last Taken Unknown] prednisone 10 mg tablet 10 mg PO DAILY #40 tabs 03/13/23 [Rx Last Taken Unknown] cetirizine 10 mg tablet 10 mg PO DAILY #30 tabs 04/10/23 [Rx Last Taken Unknown] oxycodone 5 mg tablet 5 mg PO TID PRN Shortness Of Breath 05/09/23 [History Last Taken Unknown] Allergy/AdvReac Type Severity Reaction Status Date / Time clarithromycin [From Biaxin] Allergy Hives Verified 05/09/23 21:02 Penicillins Allergy Hives Verified 05/09/23 21:02 Family History Mother Diabetes Breast cancer Heart disease Hypertension COPD (chronic obstructive pulmonary disease) Asthma Father Hypertension CVA (cerebral vascular accident) Surgical History History of hernia repair (~08/2018) History of tonsillectomy History of tooth extraction Hx of cardiac cath Social History household members: spouse Smoking Status: Former smoker how long ago did patient quit smoking: Patient admits to smoking 1 cigarette to 2 cigarettes weekly second hand exposure: Yes quit status: has quit before alcohol intake: never substance use type: does not use ROS ROS Narrative 10 systems were reviewed with pertinent positives as noted in the HPI above. Physical Exam Const alert and no apparent distress Constitutional Narrative: Sitting at the bedside. General Appearance: cooperative HEENT normocephalic and head/scalp atraumatic Eyes PERRL, EOMs intact bilaterally and conjunctivae normal Neck supple General: trachea midline Chest inspection of chest normal Resp Resp Narrative: Globally diminished air movement throughout all lung ring. Cardio regular rate and regular rhythm GI normal to inspection, nondistended, normoactive bowel sounds Extremity no clubbing, cyanosis or edema Neuro CN's II-XII intact bilaterally, moves all extremities and no focal motor deficits Psych Mood & Affect: anxious Lab / Micro Data Result Diagrams: 05/09/23 21:10 05/09/23 21:10 Labs: Laboratory Results - last 24 hr 05/09/23 21:10: WBC 15.0 H, RBC 4.62, Hgb 14.9, Hct 50.7, MCV 109.7 H, MCH 32.3 H, MCHC 29.4 L, RDW Std Deviation 52.5 H, RDW Coeff of Valerie 12.9, Plt Count 221, MPV 10.6, Immature Gran % (Auto) 0.800, Neut % (Auto) 79.1 H, Lymph % (Auto) 12.8 L, [place] % (Auto) 6.7, Eos % (Auto) 0.1, Baso % (Auto) 0.5, Absolute Neuts (auto) 11.9 H, Absolute Lymphs (auto) 1.92, Nucleated RBC % 0 05/09/23 21:10: Sodium 135 L, Potassium 4.1, Chloride 87 L, Carbon Dioxide > 45.0 H*, Anion Gap TNP, BUN 13, Creatinine 0.78, Estim Creat Clear Calc 118.83, Est GFR (MDRD) Af Amer 133, Est GFR (MDRD) Non-Af 110, BUN/Creatinine Ratio 16.6, Glucose 136 H, Calcium 9.1, Troponin I High Sens 18 05/09/23 21:10: B-Natriuretic Peptide 84.9 ABG Data ABG results: ABG 05/09/23 21:22 Specimen Type PAPITO VBG pH 7.36 VBG pO2 45 H VBG HCO3 44 H VBG Total CO2 46 H VBG O2 Sat (Calc) 76 H VBG Base Excess 18 H POC Mix VBG pCO2 Pt Tmp 78.7 H* Respiration Rate 12 O2 Delivery Device BiPAP Crit Call To/Read Back Yes Blood Gas Notified Whom ungur Blood Gas Notified Time 21:23:38 Clinical Comments 20. 12. 40% Radiology Impression Chest X-Ray 05/09/23 21:23 IMPRESSION: There are findings consistent with COPD. There is no evidence of acute chest disease. Electronically Signed: Ramin Marley MD at 21:46 EDT , Brain CT 05/09/23 22:35 IMPRESSION: No CT evidence of acute intracranial hemorrhage or injury. Electronically Signed: Joshua Bardales MD at 23:02 EDT , Charges/Coding Visit Charges Inpatient E&M: 01818 Init Hosp L2
[2023-05-10] MEDS: Loratadine 10 MG Tablet PO (08:30)
[2023-05-10] MEDS: Cyanocobalamin 500 MCG Tablet PO (08:30)
[2023-05-10] MEDS: predniSONE 20 MG Tablet 60 MG PO (08:31)
[2023-05-10] MEDS: guaiFENesin 600 MG Tablet PO (08:31)
[2023-05-10] MEDS: Losartan Potassium 25 MG Tablet PO (08:31)
[2023-05-10] MEDS: Metoprolol(XL)Succ 50 MG Tablet PO (08:31)
[2023-05-10] MEDS: Sertraline 100 MG Tablet PO (08:32)
[2023-05-10] MEDS: Furosemide 40 MG Tablet PO (08:32)
[2023-05-10] MEDS: Spironolactone 25 MG Tablet PO (08:32)
[2023-05-10] MEDS: buPROPion (XL) 150 MG TABLET.XL PO (08:32)
[2023-05-10] MEDS: APIXABAN 5 MG TABLET PO (08:33)
--- NOTE | 2023-05-10 08:39 | PCM.PN.BLA ---
Progress Note Upon review of the patient's medical history, the patient could benefit from participation in the Outpatient Pulmonary Rehabilitation program. Due to his current and past exacerbations, and history of COPD Pulm Rehab is recommended for the patient. If the PCP or cosmetologist apprentice agree with the recommendation, an Electronic Physician Order for Pulmonary Rehab can be placed in [facility]. Thank you for allowing us to participate in the care of your patient. JULY Chandler [employer] MANAGER Clinical [employer] Faculty Assistant-Pulmonary Rehabilitation
--- NOTE | 2023-05-10 11:06 | PCM.DC.SUM ---
Providers Date of Admission: 05/09/23 Date of Discharge: 05/10/23 Primary Care Physician: Dr. Yumi Peralta MD Consultations 05/10/23 07:25 Consult: Manager Etl / Pulmonary Medicine Routine Consulting Provider: Pulmonary Medicine marybel Rodrigues Reason for Consult: dyspnea EMERGENT Consult: No MD Notified: Yes Date Notified: 05/10/23 Time Notified: 08:40 Method of Notification: Verbal Reason For Visit: COPD EXACERBATION / MENTAL STATUS CHANGES Diagnosis Discharge Diagnosis (1) Chronic respiratory failure with hypoxia: Status: Chronic Code(s): J96.11 - Chronic respiratory failure with hypoxia (2) COPD with acute exacerbation: Status: Chronic Code(s): J44.1 - Chronic obstructive pulmonary disease with (acute) exacerbation Plan Patient is a 52-year-old gentleman with multiple comorbidities who presented with progressive shortness of breath and assessment of COPD with acute exacerbation made admitted to intensive care unit where patient is currently being managed 1. COPD with acute exacerbation ? Admitted to the intensive care unit patient managed with systemic steroids, antibiotics, aerosol treatment as well as BiPAP therapy and oxygen which has been titrated to keep saturation greater than 90. Patient is followed by pulmonary medicine as outpatient consult placed to Dr. Fernandes ? Decision was made to discharge patient after he returned to his baseline 2. Patient chronic hypoxic respiratory failure ? Patient is on 2 to 4 L of oxygen at baseline 3. History of pulmonary embolism ? Diagnosed in October 2022 patient is on systemic anticoagulation with apixaban did continue 4. Hypertension - Blood pressure controlled, home medications continued with dose adjustment as needed 5. Obstructive sleep apnea ? Patient is on BiPAP at night 6. Chronic congestive heart failure with preserved ejection fraction ?-Echocardiogram 04/13/2021 shows an EF of 65% with stage II diastolic dysfunction, structurally normal valves and a pulmonary artery systolic pressure of 60 mmHg. Patient is on diuretics did continue 7. Tobacco dependence - Counseled on cessation, offered nicotine patch for tobacco cravings 8. Seasonal allergies -Continue home Singulair 9. Depression/anxiety -Patient is on Wellbutrin as well as Zoloft continued 10. DVT prophylaxis ? Already on apixaban Medications at Discharge Home Medications spironolactone 25 mg tablet 25 mg PO BID bp 12/02/15 metoprolol succinate 50 mg tablet,extended release 24 hr 50 mg PO BID Heart 09/13/18 bupropion HCl 150 mg 24 hr tablet, extended release (Wellbutrin XL) 150 mg PO BID mental health 10/11/21 acetaminophen 500 mg tablet 1,000 mg PO Q6H PRN Pain 11/04/21 cyanocobalamin (vitamin B-12) 500 mcg tablet 500 mcg PO DAILY SUPPLEMENT 11/08/21 sertraline 100 mg tablet 100 mg PO DAILY mental health 01/23/22 albuterol sulfate 2.5 mg/3 mL (0.083 %) solution for nebulization 2.5 mg (3 mL) inhalation Q4H PRN shortness of breath or wheezing #360 mL 04/20/22 montelukast 10 mg tablet (Singulair) 10 mg PO QPM COPD #30 tabs 06/30/22 albuterol sulfate 90 mcg/actuation aerosol inhaler (Ventolin HFA) 2 puff inhalation Q4H PRN shortness of breath or wheezing #18 grams 09/08/22 mepolizumab 100 mg/mL subcutaneous auto-injector (Nucala) 300 mg subcut Q4W asthma 11/05/22 apixaban 5 mg tablet (Eliquis) 5 mg PO BID #74 tabs 11/08/22 guaifenesin 1,200 mg tablet, extended release 12 hr 1,200 mg PO Q12H PRN Cough #14 tabs 11/08/22 losartan 25 mg tablet 25 mg PO DAILY #30 tabs 11/08/22 sennosides 8.6 mg-docusate sodium 50 mg tablet (Stool Softener-Stimulant Laxative) 2 tab PO BID PRN PRN Constipation #0 tabs 11/08/22 torsemide 20 mg tablet 20 mg PO BID #60 tabs 11/08/22 budesonide-formoterol HFA 160 mcg-4.5 mcg/actuation aerosol inhaler (Symbicort) 2 puff inhalation BID BREATHING #10.2 grams 12/04/22 furosemide 40 mg tablet 40 mg PO DAILY FLUID 01/01/23 qffjkhxbeouc-ypw-pjqkz acid-vit K-lycop 400 mcg-20 mcg-370 mcg tablet (Men's 50 Plus Multivitamin) 1 tab PO DAILY SUPPLEMENT 01/01/23 ipratropium 0.5 mg-albuterol 3 mg (2.5 mg base)/3 mL nebulization soln 3 ml inhalation Q4H PRN Wheezing #360 mL 03/13/23 prednisone 10 mg tablet 10 mg PO DAILY #40 tabs 03/13/23 cetirizine 10 mg tablet 10 mg PO DAILY #30 tabs 04/10/23 oxycodone 5 mg tablet 5 mg PO TID PRN Shortness Of Breath 05/09/23 guaifenesin 600 mg tablet, extended release 12 hr (Mucus Relief ER) 600 mg PO BID #20 tabs 05/10/23 levofloxacin 750 mg tablet 750 mg PO DAILY #5 tabs 05/10/23 prednisone 20 mg tablet 40 mg PO BREAKFAST #10 tabs 05/10/23 Hospital Course Summary of Care Provided Minutes Spent on Discharge: 35 Physical Exam Narrative GENERAL: Cooperative HEENT: Atraumatic; normocephalic EYES; Anicteric, Normal Conjunctiva NECK; supple, normal thyroid, RESPIRATORY: Diminished to auscultation CARDIOVASCULAR: Regular S1 S2, GI: soft, normoactive bowel sounds, : No Renal angle tenderness; EXTREMITIES: No edema, no clubbing, MUSCULOSKELETAL: no muscle wasting NEURO: Awake; no lateralizing signs. SKIN: No Rash PSYCH; Flat affect Weight / BMI Weight Weight: 150 kg Body Mass Index (BMI) 44.8 ABG / Lab / Microbiology Data Result Diagrams: 05/09/23 21:10 05/09/23 21:10 Laboratory: Laboratory Results - last 24 hr 05/09/23 21:10: WBC 15.0 H, RBC 4.62, Hgb 14.9, Hct 50.7, MCV 109.7 H, MCH 32.3 H, MCHC 29.4 L, RDW Std Deviation 52.5 H, RDW Coeff of Valerie 12.9, Plt Count 221, MPV 10.6, Immature Gran % (Auto) 0.800, Neut % (Auto) 79.1 H, Lymph % (Auto) 12.8 L, [place] % (Auto) 6.7, Eos % (Auto) 0.1, Baso % (Auto) 0.5, Absolute Neuts (auto) 11.9 H, Absolute Lymphs (auto) 1.92, Nucleated RBC % 0 05/09/23 21:10: Sodium 135 L, Potassium 4.1, Chloride 87 L, Carbon Dioxide > 45.0 H*, Anion Gap TNP, BUN 13, Creatinine 0.78, Estim Creat Clear Calc 118.83, Est GFR (MDRD) Af Amer 133, Est GFR (MDRD) Non-Af 110, BUN/Creatinine Ratio 16.6, Glucose 136 H, Calcium 9.1, Troponin I High Sens 18 05/09/23 21:10: B-Natriuretic Peptide 84.9 ABG: ABG 05/09/23 21:22 Specimen Type PAPITO VBG pH 7.36 VBG pO2 45 H VBG HCO3 44 H VBG Total CO2 46 H VBG O2 Sat (Calc) 76 H VBG Base Excess 18 H POC Mix VBG pCO2 Pt Tmp 78.7 H* Respiration Rate 12 O2 Delivery Device BiPAP Crit Call To/Read Back Yes Blood Gas Notified Whom ungur Blood Gas Notified Time 21:23:38 Clinical Comments 20. 12. 40% Radiography Diagnostic Testing: Radiology Impression Chest X-Ray 05/09/23 21:23 IMPRESSION: There are findings consistent with COPD. There is no evidence of acute chest disease. Electronically Signed: Ramin Marley MD at 21:46 EDT , Brain CT 05/09/23 22:35 IMPRESSION: No CT evidence of acute intracranial hemorrhage or injury. Electronically Signed: Joshua Bardales MD at 23:02 EDT , D/C Instructions Discharge Diet: No restrictions Discharge Activity: Return to Normal Activity Call your doctor if you observe: Fever of 101 or Higher, Shortness of breath, Fainting spells and Chest pain Meaningful Use Info Meaningful Use Diagnoses (Choose all that apply): None applicable Discharge Plan Admission Admit Date/Time: 05/09/23 23:24 Attending Provider: Andre Lara Primary Care Provider: Yumi Peralta Consulting Providers: Shahab Campo ; Tay Benavides ; Reece Fernandes ; Eloy Jaimes ; Samson Gaines ; Alesia Morales INSPECTOR [employer]ALES Discharge Orders/Prescriptions Prescriptions: New guaifenesin [Mucus Relief ER] 600 mg Tablet Extended Release 12hr 600 mg PO BID Qty: 20 0RF prednisone 20 mg Tablet 40 mg PO BREAKFAST Qty: 10 0RF levofloxacin 750 mg tablet 750 mg PO DAILY Qty: 5 0RF Continued sertraline 100 mg tablet 100 mg PO DAILY cetirizine 10 mg tablet 10 mg PO DAILY Qty: 30 3RF spironolactone 25 MG tablet 25 mg PO BID Label Comments: WATER PILL metoprolol succinate 50 MG tablet extended release 24 hr 50 mg PO BID bupropion HCl [Wellbutrin XL] 150 mg Tablet Extended Release 24 Hr 150 mg PO BID acetaminophen 500 mg Tablet 1,000 mg PO Q6H PRN (Reason: Pain) cyanocobalamin (vitamin B-12) 500 MCG tablet 500 mcg PO DAILY Nucala 100 mg/mL auto-injector 300 mg subcut Q4W Rx Instructions: administer as three 100 mg injections at separate sites sennosides-docusate sodium [Stool Softener-Stimulant Laxat] 8.6-50 mg Tablet 2 tab PO BID PRN PRN (Reason: Constipation) Qty: 0 0RF Eliquis 5 mg tablet 5 mg PO BID Qty: 74 0RF Rx Instructions: 10 mg (2 TAB) twice daily for 7 days and then 5 mg (1 TAB) twice daily to continue. DVT/PE dose torsemide 20 mg tablet 20 mg PO BID Qty: 60 2RF guaifenesin 1,200 MG tablet extended release 12hr 1,200 mg PO Q12H PRN (Reason: Cough) Qty: 14 0RF losartan 25 mg tablet 25 mg PO DAILY Qty: 30 1RF furosemide 40 mg tablet 40 mg PO DAILY Label Comments: TAKE 1 TABLET BY MOUTH EVERY DAY NEEDED Men's 50 Plus Multivitamin 400-20-370 mcg Tablet 1 tab PO DAILY oxycodone 5 mg tablet 5 mg PO TID PRN (Reason: Shortness Of Breath) Label Comments: PLEASE SEE ATTACHED FOR DETAILED DIRECTIONS albuterol sulfate 2.5 mg /3 mL (0.083 %) solution for nebulization 2.5 mg INHALATION Q4H PRN (Reason: shortness of breath or wheezing) Qty: 360 6RF montelukast [Singulair] 10 mg tablet 10 mg PO QPM Qty: 30 5RF albuterol sulfate [Ventolin HFA] 90 mcg/actuation HFA aerosol inhaler 2 puff INHALATION Q4H PRN (Reason: shortness of breath or wheezing) Qty: 18 6RF budesonide-formoterol [Symbicort] 160-4.5 mcg/actuation HFA aerosol inhaler 2 puff INHALATION BID Qty: 10.2 6RF ipratropium-albuterol 0.5 mg-3 mg(2.5 mg base)/3 mL solution for nebulization 3 ml INHALATION Q4H PRN (Reason: Wheezing) Qty: 360 6RF prednisone 10 mg tablet 10 mg PO DAILY Qty: 40 0RF Rx Instructions: 4 tablets x 4 days, 3 tablets x 4 days, 2 tablets x 4 days, 1 tablet x 4 days Referrals / Follow Up: Yumi Peralta MD [Primary Care Provider] - Within 1 Week Disposition Disposition (needs filled in before D/C Order can be placed): Home, Self Care Charges/Coding Visit Charges Inpatient E&M: 65584 Disch Hosp >30min
--- NOTE | 2023-05-10 11:56 | CASEMGMT ---
FINA BLAKELY NOTE: Pt being discharged home. FINA BLAKELY to room. Introduced self and role. Pt denies having any discharge planning needs/concerns. He has all of his meds needed and is aware new Rx's ordered today and sent to [facility] Retail pharmacy and [facility], working on having these delivered to his room. Pt states he uses his PAP @ home, has enough portable O2 (states he refills them), has a nebulizer and a pulse ox. Son, who is at bedside, here to pick pt up to take him home. He states he did not bring a tank w/him for pt to go home on. Pt provided w/a [employer] portable O2 tank from [facility] supply at this time to take home w/him. Pt states has 6 little and 3 big tanks at his home that need picked up by [employer]. Call to [facility] [employer] and she was made aware. She states she will reach out to the office and have them contact pt today to arrange to have these picked up/exchange as needed. Pt made aware. Pt states he is active w/Palliative medicine. He states that the cause for his admission is d/t a new medicine that Palliative placed him on, stating, Like a guinea pig. FINA BLAKELY placed call to Yuki @ [facility] Palliative. She was made aware pt admitted under OBS last PM for COPD exac/altered mental status and is being discharged home today and of pt comment re: new medication. Per Yuki, the only medicine pt has been prescribed recently is Oxycodone. Luis ZUNIGA RN, CM
--- NOTE | 2023-05-10 12:22 | NURSING ---
discharged with scripts & o2 per wheelchair in care of son
== END 2023-05-10 12:15 | disposition home or self-care (01) ==
LOC: ED 22:52 → ICU 23:18
PROVIDERS: Admitting Provider Hospitalist; Emergency Provider Emergency Medicine; PCP Family Medicine; Visit Provider Internal Medicine
DX: J44.1 Chronic obstructive pulmonary disease with (acute) exacerbation (principal); I11.0 Hypertensive heart disease with heart failure; I50.32 Chronic diastolic (congestive) heart failure; J96.11 Chronic respiratory failure with hypoxia; J96.12 Chronic respiratory failure with hypercapnia; E66.01 Morbid (severe) obesity due to excess calories; Z68.44 Body mass index [BMI] 60.0-69.9, adult; Z79.51 Long term (current) use of inhaled steroids; F17.210 Nicotine dependence, cigarettes, uncomplicated; Z79.01 Long term (current) use of anticoagulants; I45.10 Unspecified right bundle-branch block; G47.33 Obstructive sleep apnea (adult) (pediatric); G93.40 Encephalopathy, unspecified; Z86.711 Personal history of pulmonary embolism; F32.A Depression, unspecified; F41.9 Anxiety disorder, unspecified; Z99.81 Dependence on supplemental oxygen; Z79.899 Other long term (current) drug therapy
CPT/HCPCS: 70450; 71045; 80048; 82803; 83880; 84484; 85025; 87040; 93005; 94002; 94003; 94640; 97802; 99221; 99285; J7030; A4216; G0378

== ENCOUNTER 2023-05-13 17:47 | Emergency (ER) | payer MEDICARE, SELFPAY ==
[2023-05-13 17:47] VITALS: BP 129/83; PULSE 88; RESP 20; TEMP 36.3; O2SAT 89
--- NOTE | 2023-05-13 18:24 | EDS_ITS ---
HPI History of Present Illness Chief Complaint: Fall Informant: patient and spouse/S.O. Onset/Context/Timing Onset: Today Location of pain/injuries: Right Knee, Left lower leg and Left foot Current Severity: Mild Maximum Severity: Mild Narrative Narrative: Patient presents after a fall. He states his legs gave out on him and fell landing on his knees. He has pain to the distal aspect of his left leg and foot as well as a laceration over the anterior right knee. He is unsure of his last tetanus update. He denies striking his head or loss of consciousness. He is on Eliquis. [facility] Medical History Acute respiratory failure with hypoxia and hypercapnia Anxiety BiPAP (biphasic positive airway pressure) dependence Blood disorder Cardiology follow-up encounter Chronic hypoxemic respiratory failure Chronic respiratory failure with hypoxia Closed fracture dislocation of joint of left lower extremity Closed fracture of left tibial plateau Congestive heart failure Congestive heart failure (CHF) COPD (chronic obstructive pulmonary disease) Depression Former smoker History of echocardiogram History of edema History of pain when walking HTN (hypertension) Hypertension Incarcerated umbilical hernia Obesities, morbid Obesity hypoventilation syndrome On home oxygen therapy LAYLA (obstructive sleep apnea) Other specified injury of left quadriceps muscle, fascia and tendon, initial encounter Pulmonary embolism Pulmonary HTN Pulmonary hypertension Seasonal allergies Stage 4 very severe COPD by GOLD classification Stage 4 very severe COPD by GOLD classification Tobacco dependence Uses wheelchair Home Medications spironolactone 25 mg tablet 25 mg PO BID bp 12/02/15 [History Last Taken 01/01/23] metoprolol succinate 50 mg tablet,extended release 24 hr 50 mg PO BID Heart 09/13/18 [History Last Taken 01/01/23] bupropion HCl 150 mg 24 hr tablet, extended release (Wellbutrin XL) 150 mg PO BID mental health 10/11/21 [History Last Taken 01/01/23] acetaminophen 500 mg tablet 1,000 mg PO Q6H PRN Pain 11/04/21 [History Last Taken 11/07/21 20:00] cyanocobalamin (vitamin B-12) 500 mcg tablet 500 mcg PO DAILY SUPPLEMENT 11/08/21 [History Last Taken 01/01/23] sertraline 100 mg tablet 100 mg PO DAILY mental health 01/23/22 [History Last Taken 01/01/23] albuterol sulfate 2.5 mg/3 mL (0.083 %) solution for nebulization 2.5 mg (3 mL) inhalation Q4H PRN shortness of breath or wheezing #360 mL 04/20/22 [Rx Last Taken 01/01/23] montelukast 10 mg tablet (Singulair) 10 mg PO QPM COPD #30 tabs 06/30/22 [Rx Last Taken 12/31/22] albuterol sulfate 90 mcg/actuation aerosol inhaler (Ventolin HFA) 2 puff inhalation Q4H PRN shortness of breath or wheezing #18 grams 09/08/22 [Rx Last Taken 01/01/23] mepolizumab 100 mg/mL subcutaneous auto-injector (Nucala) 300 mg subcut Q4W asthma 11/05/22 [History Last Taken 12/10/22] apixaban 5 mg tablet (Eliquis) 5 mg PO BID #74 tabs 11/08/22 [Rx Last Taken 01/01/23] guaifenesin 1,200 mg tablet, extended release 12 hr 1,200 mg PO Q12H PRN Cough #14 tabs 11/08/22 [Rx Last Taken 12/31/22] losartan 25 mg tablet 25 mg PO DAILY #30 tabs 11/08/22 [Rx Last Taken 01/01/23] sennosides 8.6 mg-docusate sodium 50 mg tablet (Stool Softener-Stimulant Laxative) 2 tab PO BID PRN PRN Constipation #0 tabs 11/08/22 [Rx Last Taken Unknown] torsemide 20 mg tablet 20 mg PO BID #60 tabs 11/08/22 [Rx Last Taken 12/31/22] budesonide-formoterol HFA 160 mcg-4.5 mcg/actuation aerosol inhaler (Symbicort) 2 puff inhalation BID BREATHING #10.2 grams 12/04/22 [Rx Last Taken 01/01/23] furosemide 40 mg tablet 40 mg PO DAILY FLUID 01/01/23 [History Last Taken 12/31/22] ifmreqhxuyru-syl-gawen acid-vit K-lycop 400 mcg-20 mcg-370 mcg tablet (Men's 50 Plus Multivitamin) 1 tab PO DAILY SUPPLEMENT 01/01/23 [History Last Taken 12/31/22] ipratropium 0.5 mg-albuterol 3 mg (2.5 mg base)/3 mL nebulization soln 3 ml inhalation Q4H PRN Wheezing #360 mL 03/13/23 [Rx Last Taken Unknown] prednisone 10 mg tablet 10 mg PO DAILY #40 tabs 03/13/23 [Rx Last Taken Unknown] cetirizine 10 mg tablet 10 mg PO DAILY #30 tabs 04/10/23 [Rx Last Taken Unknown] oxycodone 5 mg tablet 5 mg PO TID PRN Shortness Of Breath 05/09/23 [History Last Taken Unknown] guaifenesin 600 mg tablet, extended release 12 hr (Mucus Relief ER) 600 mg PO BID #20 tabs 05/10/23 [Rx Last Taken Unknown] levofloxacin 750 mg tablet 750 mg PO DAILY #5 tabs 05/10/23 [Rx Last Taken Un known] prednisone 20 mg tablet 40 mg PO BREAKFAST #10 tabs 05/10/23 [Rx Last Taken Unknown] hydrocodone-acetaminophen 5-325mg 5mg-325mg 1 tab PO Q6H PRN PRN Pain 3 days #12 TABLETS 05/13/23 [Rx Last Taken Unknown] Allergy/AdvReac Type Severity Reaction Status Date / Time clarithromycin [From Biaxin] Allergy Hives Verified 05/13/23 17:49 Penicillins Allergy Hives Verified 05/13/23 17:49 Family History Mother Diabetes Breast cancer Heart disease Hypertension COPD (chronic obstructive pulmonary disease) Asthma Father Hypertension CVA (cerebral vascular accident) Surgical History History of hernia repair (~08/2018) History of tonsillectomy History of tooth extraction Hx of cardiac cath Social History household members: spouse Smoking Status: Current every day smoker tobacco type: cigarettes how long ago did patient quit smoking: Patient admits to smoking 1 cigarette to 2 cigarettes weekly second hand exposure: Yes quit status: has quit before alcohol intake: never substance use type: does not use ROS ROS ED Constitutional Constitutional ED: Denies chills or fever(s) Eyes Eyes: Denies change in vision or discharge from eye(s) ENT ENT ED: Denies discharge from eye(s), rhinorrhea or sore throat Cardiovascular Cardiovascular: Denies chest pain or palpitations Respiratory/Chest Respiratory/Chest: Denies cough or dyspnea Gastrointestinal Gastrointestinal: Denies abdominal pain, diarrhea, nausea or vomiting Musculoskeletal Musculoskeletal: Reports extremity pain; Denies back pain Integumentary Reports other Details: Right knee laceration ; Denies Abrasions or rash Neurologic Neurologic: Denies headache(s) or weakness Psychiatric Psychiatric: Denies anxiety or depression Allergic/Immunologic Allergic/Immunologic ED: Denies lip swelling or urticaria EXAM Physical Exam Const Vital Signs: 05/13/23 17:47 05/13/23 18:56 05/13/23 22:00 Temperature 97.3 F L Temperature Source Temporal Pulse Rate 88 90 Respiratory Rate 20 H 15 Respiratory Effort Normal Non-Labored Respiratory Depth Normal Respiratory Pattern Normal Blood Pressure 129/83 H 149/81 H Blood Pressure Mean 98 103 Pulse Ox 89 94 Oxygen Delivery Method Nasal Cannula Room Air Nasal Cannula Oxygen Flow Rate (L/min) 3 3 Positive well nourished and well developed General Appearance ED: well developed HEENT Reports normocephalic and head/scalp atraumatic Eyes PERRL and EOMs intact bilaterally Neck supple Chest Wall inspection of chest normal and palpation of chest normal Resp normal respiratory effort and clear to auscultation bilaterally Cardio regular rate and regular rhythm GI normal to inspection, nondistended, normoactive bowel sounds Palpation: soft Extremity Extremity Narrative: 3 cm laceration over the anterior right knee. No significant surrounding bony tenderness. Strong distal pulses. Left lower extremity examination reveals abrasions over the anterior knee. There is mild tenderness noted on the distal aspect of the left lower leg and over the foot. No obvious deformity. No open wounds noted on the left leg. Neuro oriented x3 and no sensory deficits noted Sensorium / Orientation: alert Motor Exam: strength 5/5 throughout Psych mental status grossly normal MDM MDM MDM Narrative Medical decision making narrative: Tetanus update provided. X-rays of the right knee along with left tib-fib and left foot obtained to evaluate for fracture. Radiography Diagnostic Testing: Clinical Impression(s) from Imaging Studies Foot X-Ray 05/13/23 18:43 IMPRESSION: There is mild displaced fracture with lateral displacement suggesting Lisfranc ligament injury at the base of the second metatarsal. There is also possible fracture of the base of the third metatarsal. Electronically Signed: Leonard Oneal MD at 19:26 EDT , Knee X-Ray 05/13/23 18:43 IMPRESSION: Negative. Electronically Signed: Leonard Oneal MD at 19:28 EDT , Tibia/Fibula X-Ray 05/13/23 18:43 IMPRESSION: There is an old healed fracture at the medial tibial plateau with hardware from prior ORIF in good position. Electronically Signed: Leonard Oneal MD at 19:30 EDT , Lower Extremity CT 05/13/23 20:09 IMPRESSION: Multiple fractures including intra-articular fractures at the base of the first, second, third, and fourth metatarsals. Questionable fracture of the base of the fifth metatarsal. Electronically Signed: Laly Gibson MD at 22:22 EDT , Treatment and Re-Evaluation Narrative: Right knee x-ray per my interpretation reveals no evidence of acute bony injury. Radiology interpretation is reviewed and agrees. Left tib-fib x-ray per my interpretation reveals postoperative changes to the proximal tibia. Radiology interpretation is reviewed and agrees. Left foot x-rays per my interpretation reveal abnormal density at the proximal aspect of the second and third metatarsals, question arthritic changes. Radiology interpretation is reviewed and they do feel this represents an acute Lisfranc fracture. I spoke with Dr. Waller who reviewed the images. He did request a CT scan to further evaluate. CT scan does reveal multiple fractures including intra-articular fractures of the base of the first, second, third, and fourth metatarsals. There is a questionable fracture at the base of the fifth metatarsal. Patient is placed in a posterior Ortho-Glass splint by myself. Following splint application he has good cap refill and can wiggle toes. He is to remain completely nonweightbearing. He has a walker and assist devices at home from his prior leg fracture. He is aware that he is to be completely nonweightbearing. He will be given [place] for pain. Right knee laceration was anesthetized with 5 cc of 1% lidocaine. Wound is thoroughly cleansed and irrigated. A total of 7 simple interrupted sutures are placed with 4-0 nylon. Antibiotic ointment and dressing applied. Patient is to follow-up with PCP in 7 to 10 days for suture removal. Discharge Plan Triage Chief Complaint: Fall ED Provider: Jacque Layne Dx/Rx/DC Orders Clinical Impression: Laceration of knee, right, Fall, Lisfranc fracture Instructions: ED Fracture, Foot, ED Laceration: All Closures, ED Laceration Extremity Prescriptions: New hydrocodone-acetaminophen 5-325 mg tablet 1 tab PO Q6H PRN PRN (Reason: Pain) 3 Days Qty: 12 0RF No Action sertraline 100 mg tablet 100 mg PO DAILY cetirizine 10 mg tablet 10 mg PO DAILY Qty: 30 3RF spironolactone 25 MG tablet 25 mg PO BID Label Comments: WATER PILL metoprolol succinate 50 MG tablet extended release 24 hr 50 mg PO BID bupropion HCl [Wellbutrin XL] 150 mg Tablet Extended Release 24 Hr 150 mg PO BID acetaminophen 500 mg Tablet 1,000 mg PO Q6H PRN (Reason: Pain) cyanocobalamin (vitamin B-12) 500 MCG tablet 500 mcg PO DAILY Nucala 100 mg/mL auto-injector 300 mg subcut Q4W Rx Instructions: administer as three 100 mg injections at separate sites sennosides-docusate sodium [Stool Softener-Stimulant Laxat] 8.6-50 mg Tablet 2 tab PO BID PRN PRN (Reason: Constipation) Qty: 0 0RF Eliquis 5 mg tablet 5 mg PO BID Qty: 74 0RF Rx Instructions: 10 mg (2 TAB) twice daily for 7 days and then 5 mg (1 TAB) twice daily to continue. DVT/PE dose torsemide 20 mg tablet 20 mg PO BID Qty: 60 2RF guaifenesin 1,200 MG tablet extended release 12hr 1,200 mg PO Q12H PRN (Reason: Cough) Qty: 14 0RF losartan 25 mg tablet 25 mg PO DAILY Qty: 30 1RF furosemide 40 mg tablet 40 mg PO DAILY Label Comments: TAKE 1 TABLET BY MOUTH EVERY DAY NEEDED Men's 50 Plus Multivitamin 400-20-370 mcg Tablet 1 tab PO DAILY oxycodone 5 mg tablet 5 mg PO TID PRN (Reason: Shortness Of Breath) Label Comments: PLEASE SEE ATTACHED FOR DETAILED DIRECTIONS guaifenesin [Mucus Relief ER] 600 mg Tablet Extended Release 12hr 600 mg PO BID Qty: 20 0RF prednisone 20 mg Tablet 40 mg PO BREAKFAST Qty: 10 0RF levofloxacin 750 mg tablet 750 mg PO DAILY Qty: 5 0RF albuterol sulfate 2.5 mg /3 mL (0.083 %) solution for nebulization 2.5 mg INHALATION Q4H PRN (Reason: shortness of breath or wheezing) Qty: 360 6RF montelukast [Singulair] 10 mg tablet 10 mg PO QPM Qty: 30 5RF albuterol sulfate [Ventolin HFA] 90 mcg/actuation HFA aerosol inhaler 2 puff INHALATION Q4H PRN (Reason: shortness of breath or wheezing) Qty: 18 6RF budesonide-formoterol [Symbicort] 160-4.5 mcg/actuation HFA aerosol inhaler 2 puff INHALATION BID Qty: 10.2 6RF ipratropium-albuterol 0.5 mg-3 mg(2.5 mg base)/3 mL solution for nebulization 3 ml INHALATION Q4H PRN (Reason: Wheezing) Qty: 360 6RF prednisone 10 mg tablet 10 mg PO DAILY Qty: 40 0RF Rx Instructions: 4 tablets x 4 days, 3 tablets x 4 days, 2 tablets x 4 days, 1 tablet x 4 days Primary Care Provider: Yumi Peralta Referrals: Yumi Peralta MD [Primary Care Provider] - 10 Day for suture removal Yobani Waller DPM [Med Staff - Active Staff] - 3-5 Days Disposition Disposition: Home, Self Care
--- NOTE | 2023-05-13 18:43 | RAD_ITS ---
INDICATION: injury EXAMINATION/TECHNIQUE: X-RAY - RIGHT XR Knee Complete 4 Views or More 4 VIEWS COMPARISON: FINDINGS: SOFT TISSUES: No soft tissue swelling or gas. No radiopaque foreign body. BONES/JOINTS: No acute fracture or subluxation.. Normal alignment. Preservation of the joint space.. No sclerotic or destructive changes observed. RAD/Knee 4 or More Views IMPRESSION: Negative. Electronically Signed: Leonard Oneal MD at 19:28 EDT ,
--- NOTE | 2023-05-13 18:43 | RAD_ITS ---
INDICATION: injury EXAMINATION/TECHNIQUE: X-RAY - LEFT XR Foot Min 3 Views 3 VIEWS FINDINGS: SOFT TISSUES: No soft tissue swelling or gas. No radiopaque foreign body. BONES/JOINTS: There is mild displaced fracture with lateral displacement at the base of the second metatarsal. There is also possible fracture of the base of the third metatarsal RAD/Foot min 3 Views IMPRESSION: There is mild displaced fracture with lateral displacement suggesting Lisfranc ligament injury at the base of the second metatarsal. There is also possible fracture of the base of the third metatarsal. Electronically Signed: Leonard Oneal MD at 19:26 EDT ,
--- NOTE | 2023-05-13 18:43 | RAD_ITS ---
INDICATION: injury EXAMINATION/TECHNIQUE: X-RAY - LEFT XR Tibia/Fibula 2 Views 4 VIEWS COMPARISON: 10/11/2021 FINDINGS: SOFT TISSUES: No soft tissue swelling or gas. No radiopaque foreign body. BONES/JOINTS: There is an old healed fracture at the medial tibial plateau with hardware from prior ORIF in good position. Preservation of the joint space.. No sclerotic or destructive changes observed. RAD/Tibia & Fibula 2 Views IMPRESSION: There is an old healed fracture at the medial tibial plateau with hardware from prior ORIF in good position. Electronically Signed: Leonard Oneal MD at 19:30 EDT ,
[2023-05-13] MEDS: Diphth,Pertuss(Acell),Tet Vac 0.5 ML Vial IM (18:53)
[2023-05-13] MEDS: Lidocaine 1% (20 ml mdv) 20 ML Vial INFILT (18:54)
[2023-05-13 18:56] VITALS: BMI 45.3
--- NOTE | 2023-05-13 20:09 | CT_ITS ---
EXAM: CT Lower Extremity W/O Contrast Injection HISTORY: injury TECHNIQUE: Axial images obtained through the foot. Without IV contrast. Sagittal and coronal reformats. RADIATION DOSAGE (If Supplied By Facility): CTDIvol = ( 15.35 ) mGy, DLP = ( 395.98 ) mGycm Individualized dose optimization techniques were used for this CT. COMPARISON: None. FINDINGS: Acute oblique fracture base of the first metatarsal extends to the articular surface, nondisplaced. Acute comminuted fracture of the base of the second and third metatarsals, with components that extend to the proximal articular surface. No significant displacement. Fracture base of the fourth metatarsal extends to the articular surface. Probable fracture of the base of the fifth metatarsal, suboptimal related to the imaging planes. No dislocation. Diffuse soft tissue edema. CT/Extremity Lower without Contra IMPRESSION: Multiple fractures including intra-articular fractures at the base of the first, second, third, and fourth metatarsals. Questionable fracture of the base of the fifth metatarsal. Electronically Signed: Laly Gibson MD at 22:22 EDT ,
[2023-05-13 22:00] VITALS: BP 149/81; PULSE 90; RESP 15; O2SAT 94
[2023-05-13 22:39] VITALS: BP 149/81; PULSE 90; RESP 15; O2SAT 94
[2023-05-13] MEDS: HYDROcodone Bitartrate/Apap 5/325 Tablet PO (23:04)
== END 2023-05-13 23:07 | disposition home or self-care (01) ==
PROVIDERS: Emergency Provider Emergency Medicine; PCP Family Medicine; Visit Provider Emergency Medicine
DX: S92.312A Displaced fracture of first metatarsal bone, left foot, initial encounter for closed fracture (principal); J44.9 Chronic obstructive pulmonary disease, unspecified; I11.0 Hypertensive heart disease with heart failure; I50.9 Heart failure, unspecified; S92.322A Displaced fracture of second metatarsal bone, left foot, initial encounter for closed fracture; S92.332A Displaced fracture of third metatarsal bone, left foot, initial encounter for closed fracture; S92.342A Displaced fracture of fourth metatarsal bone, left foot, initial encounter for closed fracture; S81.011A Laceration without foreign body, right knee, initial encounter; W19.XXXA Unspecified fall, initial encounter; F17.210 Nicotine dependence, cigarettes, uncomplicated; Z79.01 Long term (current) use of anticoagulants; Z79.899 Other long term (current) drug therapy; Z86.711 Personal history of pulmonary embolism
CPT/HCPCS: 29515; 12002; 73564; 73590; 73630; 73700; 99284

== ENCOUNTER 2023-06-10 11:44 | Inpatient (IN) | payer MEDICARE, SELFPAY ==
[2023-06-10] VITALS (20 sets, daily range): BP systolic 120–157; BP diastolic 86–97; PULSE 18–91; RESP 12–32; TEMP 36.1–36.9; O2SAT 77–98; BMI 44.1
--- NOTE | 2023-06-10 12:06 | EDS_ITS ---
HPI <JAY Walker - Last Filed: 06/10/23 20:17> History of Present Illness Chief Complaint: Shortness of Breath Narrative Narrative: Patient presenting due to shortness of breath that he has had since yesterday. He has a PMH of CHF, stage IV COPD, pulmonary hypertension, obstructive sleep apnea. He wears 4 L O2 at home at baseline with a BiPAP being used at night. reports that yesterday he was complaining that his chest felt tight and he was feeling short of breath, his oxygen saturation began dropping down into the 70s so he started bumping up his oxygen. In the past when he has done this he has become hypercapnic and she thinks that is what is going on today. She reports that he is somnolent and his eyes appear glossy. He has a history of a PE but is on Eliquis and is compliant with it. He does not feel that his legs are more edematous than usual but reports that he has been urinating less these past few days. He denies any fever, chills, chest pain, and orthopnea. PFSH <JAY Walker - Last Filed: 06/10/23 20:17> [facility] Medical History Acute respiratory failure with hypoxia and hypercapnia Anxiety BiPAP (biphasic positive airway pressure) dependence Blood disorder Cardiology follow-up encounter Chronic hypoxemic respiratory failure Chronic respiratory failure with hypoxia Closed fracture dislocation of joint of left lower extremity Closed fracture of left tibial plateau Congestive heart failure Congestive heart failure (CHF) COPD (chronic obstructive pulmonary disease) Depression Former smoker History of echocardiogram History of edema History of pain when walking HTN (hypertension) Hypertension Incarcerated umbilical hernia Obesities, morbid Obesity hypoventilation syndrome On home oxygen therapy LAYLA (obstructive sleep apnea) Other specified injury of left quadriceps muscle, fascia and tendon, initial encounter Pulmonary embolism Pulmonary HTN Pulmonary hypertension Seasonal allergies Stage 4 very severe COPD by GOLD classification Stage 4 very severe COPD by GOLD classification Tobacco dependence Uses wheelchair Home Medications spironolactone 25 mg tablet 25 mg PO BID bp 12/02/15 [History Last Taken 01/01/23] metoprolol succinate 50 mg tablet,extended release 24 hr 50 mg PO BID Heart 09/13/18 [History Last Taken 01/01/23] bupropion HCl 150 mg 24 hr tablet, extended release (Wellbutrin XL) 150 mg PO BID mental health 10/11/21 [History Last Taken 01/01/23] acetaminophen 500 mg tablet 1,000 mg PO Q6H PRN Pain 11/04/21 [History Last Taken 11/07/21 20:00] cyanocobalamin (vitamin B-12) 500 mcg tablet 500 mcg PO DAILY SUPPLEMENT 11/08/21 [History Last Taken 01/01/23] sertraline 100 mg tablet 100 mg PO DAILY mental health 01/23/22 [History Last Taken 01/01/23] montelukast 10 mg tablet (Singulair) 10 mg PO QPM COPD #30 tabs 06/30/22 [Rx Last Taken 12/31/22] mepolizumab 100 mg/mL subcutaneous auto-injector (Nucala) 300 mg subcut Q4W asthma 11/05/22 [History Last Taken 12/10/22] guaifenesin 1,200 mg tablet, extended release 12 hr 1,200 mg PO Q12H PRN Cough #14 tabs 11/08/22 [Rx Last Taken 12/31/22] losartan 25 mg tablet 25 mg PO DAILY #30 tabs 11/08/22 [Rx Last Taken 01/01/23] sennosides 8.6 mg-docusate sodium 50 mg tablet (Stool Softener-Stimulant Laxative) 2 tab PO BID PRN PRN Constipation #0 tabs 11/08/22 [Rx Last Taken Unknown] torsemide 20 mg tablet 20 mg PO BID #60 tabs 11/08/22 [Rx Last Taken 12/31/22] furosemide 40 mg tablet 40 mg PO DAILY FLUID 01/01/23 [History Last Taken 12/31/22] rdlvycmakspp-fsk-esrvi acid-vit K-lycop 400 mcg-20 mcg-370 mcg tablet (Men's 50 Plus Multivitamin) 1 tab PO DAILY SUPPLEMENT 01/01/23 [History Last Taken 12/31/22] ipratropium 0.5 mg-albuterol 3 mg (2.5 mg base)/3 mL nebulization soln 3 ml inhalation Q4H PRN Wheezing #360 mL 03/13/23 [Rx Last Taken Unknown] prednisone 10 mg tablet 10 mg PO DAILY #40 tabs 03/13/23 [Rx Last Taken Unknown] oxycodone 5 mg tablet 5 mg PO TID PRN Shortness Of Breath 05/09/23 [History Last Taken Unknown] guaifenesin 600 mg tablet, extended release 12 hr (Mucus Relief ER) 600 mg PO BID #20 tabs 05/10/23 [Rx Last Taken Unknown] levofloxacin 750 mg tablet 750 mg PO DAILY #5 tabs 05/10/23 [Rx Last Taken Unknown] prednisone 20 mg tablet 40 mg (2 x 20 mg) PO BREAKFAST #10 tabs 05/10/23 [Rx L ast Taken Unknown] hydrocodone-acetaminophen 5-325mg 5mg-325mg 1 tab PO Q6H PRN PRN Pain 3 days #12 TABLETS 05/13/23 [Rx Last Taken Unknown] tramadol 50 mg tablet 50 mg PO Q4H PRN PRN Pain 3 days #20 tabs 05/14/23 [Rx Last Taken Unknown] albuterol sulfate 2.5 mg/3 mL (0.083 %) solution for nebulization 2.5 mg (3 mL) inhalation Q4H PRN shortness of breath or wheezing #360 mL 05/23/23 [Rx Last Taken Unknown] albuterol sulfate 90 mcg/actuation aerosol inhaler (Ventolin HFA) 2 puff inhalation Q4H PRN shortness of breath or wheezing #18 grams 05/23/23 [Rx Last Taken Unknown] budesonide-formoterol HFA 160 mcg-4.5 mcg/actuation aerosol inhaler (Symbicort) 2 puff inhalation BID BREATHING #10.2 grams 05/23/23 [Rx Last Taken Unknown] cetirizine 10 mg tablet 10 mg PO DAILY #90 tabs 05/30/23 [Rx Last Taken Unknown] apixaban 5 mg tablet (Eliquis) 5 mg PO DAILY 06/10/23 [History Last Taken Unknown] metoprolol tartrate 50 mg tablet 50 mg PO BID bp 06/10/23 [History Last Taken Unknown] Allergy/AdvReac Type Severity Reaction Status Date / Time clarithromycin [From Biaxin] Allergy Hives Verified 06/10/23 11:46 Penicillins Allergy Hives Verified 06/10/23 11:46 Family History Mother Diabetes Breast cancer Heart disease Hypertension COPD (chronic obstructive pulmonary disease) Asthma Father Hypertension CVA (cerebral vascular accident) Surgical History History of hernia repair (~08/2018) History of tonsillectomy History of tooth extraction Hx of cardiac cath Social History household members: spouse Smoking Status: Current some day smoker tobacco type: cigarettes how long ago did patient quit smoking: Patient admits to smoking 1 cigarette to 2 cigarettes weekly second hand exposure: Yes quit status: has quit before alcohol intake: never substance use type: does not use ROS <JAY Walker - Last Filed: 06/10/23 20:17> ROS ED Constitutional Constitutional ED: Denies chills or fever(s) Cardiovascular Cardiovascular: Denies chest pain Respiratory/Chest Respiratory/Chest: Reports dyspnea and dyspnea on exertion; Denies cough Gastrointestinal Gastrointestinal: Denies abdominal pain, nausea or vomiting Musculoskeletal Musculoskeletal: Denies arthralgias or myalgias Neurologic Neurologic: Denies weakness EXAM <JAY Walker - Last Filed: 06/10/23 20:17> Physical Exam Const Vital Signs: 06/10/23 11:46 06/10/23 11:51 06/10/23 13:09 Temperature 98.4 F Temperature Source Oral Pulse Rate 84 80 Respiratory Rate 22 H 18 Respiratory Effort Short of Breath Labored Respiratory Depth Normal Respiratory Pattern Tachypnea Normal Blood Pressure 140/91 H Blood Pressure Mean 107 Pulse Ox 95 Oxygen Delivery Method Nasal Cannula Nasal Cannula Oxygen Flow Rate (L/min) 4 4 Fraction of Inspired Oxygen (FIO2) 06/10/23 13:24 06/10/23 14:00 06/10/23 14:05 Temperature 97.8 F Temperature Source Oral Pulse Rate 79 74 71 Respiratory Rate 22 H 26 H 18 Respiratory Effort Respiratory Depth Respiratory Pattern Tachypnea Blood Pressure 120/86 H Blood Pressure Mean 97 Pulse Ox 94 95 92 Oxygen Delivery Method Bi-pap Bi-pap Oxygen Flow Rate (L/min) Fraction of Inspired Oxygen (FIO2) 35 Positive well nourished, well developed and no apparent distress General Appearance ED: well developed HEENT Reports normocephalic and head/scalp atraumatic Mouth ED: Yes moist mucous membranes normal Eyes PERRL and EOMs intact bilaterally Neck full ROM and supple Chest Wall inspection of chest normal Resp normal respiratory effort Resp Narrative: mild wheezes at the lung bases on auscultation. Cardio regular rate and regular rhythm GI soft to palpation, non-tender, non-distended and no masses Back/Spine normal ROM and normal to inspection Extremity normal to inspection and full ROM Neuro oriented x3, CN's II-XII intact bilaterally, moves all extremities, no focal motor deficits and no sensory deficits noted Sensorium / Orientation: awake and alert Psych mental status grossly normal and thought process normal Skin no rashes or lesions noted and no wounds <Shaun Marti MD - Last Filed: 06/10/23 21:01> Physical Exam Const Vital Signs: 06/10/23 11:46 06/10/23 11:51 06/10/23 13:09 Temperature 98.4 F Temperature Source Oral Pulse Rate 84 80 Respiratory Rate 22 H 18 Respiratory Effort Short of Breath Labored Respiratory Depth Normal Respiratory Pattern Tachypnea Normal Blood Pressure 140/91 H Blood Pressure Mean 107 Pulse Ox 95 Oxygen Delivery Method Nasal Cannula Nasal Cannula Oxygen Flow Rate (L/min) 4 4 Fraction of Inspired Oxygen (FIO2) 06/10/23 13:24 06/10/23 14:00 06/10/23 14:05 Temperature 97.8 F Temperature Source Oral Pulse Rate 79 74 71 Respiratory Rate 22 H 26 H 18 Respiratory Effort Respiratory Depth Respiratory Pattern Tachypnea Blood Pressure 120/86 H Blood Pressure Mean 97 Pulse Ox 94 95 92 Oxygen Delivery Method Bi-pap Bi-pap Oxygen Flow Rate (L/min) Fraction of Inspired Oxygen (FIO2) 35 [facility] <JAY Walker - Last Filed: 06/10/23 20:17> [facility] Narrative Medical decision making narrative: Patient presenting today due to shortness of breath that he has had since yesterday. He has a significant history of COPD and CHF and wears 4 L O2 at baseline. Yesterday he noticed that his pulse ox was dropping into the 70s so he increased his oxygen. His reports that whenever he does that he usually becomes hypercapnic and has to come into the emergency department and ultimately gets admitted to the hospital. He is somnolent on examination. He does have mild bilateral wheezes on auscultation and reports chest tightness. He will be given IV Solu-Medrol and breathing treatments. Labs will be obtained to rule out leukocytosis, anemia, electrolyte abnormality, ACS, and to assess his CO2. Nurses were unable to obtain an ABG, VBG has been obtained to rule out hypercapnia. Patient does have slight leukocytosis but chest x-ray is negative for pneumonia. Patient is in respiratory failure with hypercapnia. He was placed on BiPAP and on repeat examination appears to be less somnolent and oxygen saturation remained stable. I did speak with the hospitalist for admission, he will be admitted in stable condition and is comfortable with plan. Lab Data Attestation: I reviewed the patient's lab results. Lab results narrative: Slight leukocytosis, hypercapnia, sodium 134, chloride 88 Labs: Laboratory Results - last 24 hr 06/10/23 11:53 WBC 11.6 H RBC 4.70 Hgb 14.9 Hct 50.0 MCV 106.4 H MCH 31.7 MCHC 29.8 L RDW Std Deviation 49.9 H RDW Coeff of Valerie 12.5 Plt Count 187 MPV 11.3 Immature Gran % (Auto) 0.500 Neut % (Auto) 72.6 H Lymph % (Auto) 16.2 L Baxter % (Auto) 9.9 Eos % (Auto) 0.1 Baso % (Auto) 0.7 Absolute Neuts (auto) 8.4 H Absolute Lymphs (auto) 1.88 Nucleated RBC % 0 Sodium 134 L Potassium 4.1 Chloride 88 L Carbon Dioxide > 45.0 H* Anion Gap TNP BUN 11 Creatinine 0.73 Est GFR (MDRD) Af Amer 143 Est GFR (MDRD) Non-Af 118 BUN/Creatinine Ratio 15.0 Glucose 144 H Calcium 9.3 Magnesium 2.1 Troponin I High Sens 13 B-Natriuretic Peptide 62.9 ABG Data ABG results: ABG 06/10/23 13:01 Specimen Type PAPITO VBG pH 7.28 L VBG pO2 44 H VBG HCO3 50 H VBG O2 Sat (Calc) 68 VBG Base Excess 23 H POC Mix VBG pCO2 Pt Tmp 106.0 H* O2 Delivery Device Cannula Liter Flow 4.0 Crit Call To/Read Back Yes Blood Gas Notified Whom reodica Blood Gas Notified Time 13:05:21 Radiography Chest X-Ray - ED: Read by ED Physician and Read by Radiologist Diagnostic Testing: Clinical Impression(s) from Imaging Studies Chest X-Ray 06/10/23 12:10 IMPRESSION: 1. No acute findings in the chest. 2. Mild dilatation of the left main pulmonary artery suspicious for poststenotic dilatation of the pulmonic valve. 2-D echocardiogram will help clarify if clinically warranted. 3. No interval change when compared to 05/09/2023. Electronically Signed: Shaun Lowe MD at 13:19 EDT , EKG Initial EKG: Comments: 80 bpm, normal sinus rhythm, right bundle branch block, no ST elevation, reviewed and interpreted by attending ED physician <Shaun Marti MD - Last Filed: 06/10/23 21:01> [facility] MDM Narrative Medical decision making narrative: Patient presenting today due to shortness of breath that he has had since yest erd. He has a significant history of COPD and CHF and wears 4 L O2 at baseline. Yesterday he noticed that his pulse ox was dropping into the 70s so he increased his oxygen. His reports that whenever he does that he usually becomes hypercapnic and has to come into the emergency department and ultimately gets admitted to the hospital. He is somnolent on examination. He does have mild bilateral wheezes on auscultation and reports chest tightness. He will be given IV Solu-Medrol and breathing treatments. Labs will be obtained to rule out leukocytosis, anemia, electrolyte abnormality, ACS, and to assess his CO2. Nurses were unable to obtain an ABG, VBG has been obtained to rule out hypercapnia. Patient does have slight leukocytosis but chest x-ray is negative for pneumonia. Patient is in respiratory failure with hypercapnia. He was placed on BiPAP and on repeat examination appears to be less somnolent and oxygen saturation remained stable. I did speak with the hospitalist for admission, he will be admitted in stable condition and is comfortable with plan. I have personally performed a face to face assessment of the patient and have reviewed the GENEVIEVE Note. I performed a substantive portion of the visit including all aspects of the following. My [place]field findings include: History is shortness of breath with history of COPD, previous hypercapnia with mental status change. More drowsy according to . Exam is afebrile. Vital signs noted. Regular rate and rhythm. Diminished breath sounds bilateral bases. Intermittent drowsiness, but will awaken easily and answer questions appropriately. Medical Decision Making check labs. Check chest x-ray. Chest x-ray interpreted by myself independently shows no evidence of an acute pneumonia. Check VBG. Elevated CO2. Placed on BiPAP. Admit to PCU. Other additions or changes: [None] History & Record Review Discussion w/independent historian: Patient and Family Additional record(s) reviewed:: Prior ED visit and Prior labs Lab Data Labs: Laboratory Results - last 24 hr 06/10/23 11:53 WBC 11.6 H RBC 4.70 Hgb 14.9 Hct 50.0 MCV 106.4 H MCH 31.7 MCHC 29.8 L RDW Std Deviation 49.9 H RDW Coeff of Valerie 12.5 Plt Count 187 MPV 11.3 Immature Gran % (Auto) 0.500 Neut % (Auto) 72.6 H Lymph % (Auto) 16.2 L Baxter % (Auto) 9.9 Eos % (Auto) 0.1 Baso % (Auto) 0.7 Absolute Neuts (auto) 8.4 H Absolute Lymphs (auto) 1.88 Nucleated RBC % 0 Sodium 134 L Potassium 4.1 Chloride 88 L Carbon Dioxide > 45.0 H* Anion Gap TNP BUN 11 Creatinine 0.73 Est GFR (MDRD) Af Amer 143 Est GFR (MDRD) Non-Af 118 BUN/Creatinine Ratio 15.0 Glucose 144 H Calcium 9.3 Magnesium 2.1 Troponin I High Sens 13 B-Natriuretic Peptide 62.9 ABG Data ABG results: ABG 06/10/23 13:01 Specimen Type PAPITO VBG pH 7.28 L VBG pO2 44 H VBG HCO3 50 H VBG O2 Sat (Calc) 68 VBG Base Excess 23 H POC Mix VBG pCO2 Pt Tmp 106.0 H* O2 Delivery Device Cannula Liter Flow 4.0 Crit Call To/Read Back Yes Blood Gas Notified Whom pippa Blood Gas Notified Time 13:05:21 Radiography Diagnostic Testing: Clinical Impression(s) from Imaging Studies Chest X-Ray 06/10/23 12:10 IMPRESSION: 1. No acute findings in the chest. 2. Mild dilatation of the left main pulmonary artery suspicious for poststenotic dilatation of the pulmonic valve. 2-D echocardiogram will help clarify if clinically warranted. 3. No interval change when compared to 05/09/2023. Electronically Signed: Shaun Lowe MD at 13:19 EDT , Discharge Plan Dx/Rx/DC Orders Clinical Impression: Acute respiratory failure with hypoxia and hypercapnia, SOB (shortness of breath), COPD exacerbation, HTN (hypertension), Leukocytosis Disposition Disposition: Acute Care Hospital [facility] Discharge Date/Time: 06/10/23 15:57
--- NOTE | 2023-06-10 12:10 | RAD_ITS ---
EXAM: XR CHEST, 2 VIEWS CLINICAL INDICATION: Shortness of breath. TECHNIQUE: Frontal and lateral views of the chest. COMPARISON: 05/09/2023. FINDINGS: LUNGS AND PLEURAL SPACES: Mild dilatation of the left main pulmonary artery suspicious for poststenotic dilatation of the pulmonic valve. No pneumothorax. No effusion. No suspicious infiltrates. HEART: Unremarkable. Normal cardiac size. MEDIASTINUM: Central airways and mediastinal contour are unremarkable. BONES/JOINTS: Unremarkable. SOFT TISSUES: Unremarkable. RAD/Chest PA and Lateral IMPRESSION: 1. No acute findings in the chest. 2. Mild dilatation of the left main pulmonary artery suspicious for poststenotic dilatation of the pulmonic valve. 2-D echocardiogram will help clarify if clinically warranted. 3. No interval change when compared to 05/09/2023. Electronically Signed: Shaun Lowe MD at 13:19 EDT ,
[2023-06-10 12:21] LABS: BUN 11 mg/dL (7-18); Calcium,Total 9.3 mg/dL (8.5-10.1); Carbon Dioxide > 45.0 mmol/L (21.0-32.0); Chloride 88 mmol/L (98-107); Creatinine, Serum 0.73 mg/dL (0.70-1.30); EST Glomerular Filtration Rate 118 mL/min (>60); Est Glom Filt Rate - Afr Amer 143 mL/min (>60); Glucose 144 mg/dL (74-106); Potassium 4.1 mmol/L (3.5-5.1); Sodium Level 134 mmol/L (136-145); Troponin-I HS 13 pg/mL (3.0-78.0)
[2023-06-10 12:26] LABS: BNP,B-Type NATRIURETIC PEPTIDE 62.9 pg/mL (0-100)
[2023-06-10] MEDS: Ipratropium/Albuterol Sulfate 3 ML AMPUL.NEB INHALATION ×2 (12:28→18:49)
[2023-06-10] MEDS: MethylPREDNISolone 125 MG/2 ML Vial IV (12:42)
[2023-06-10 14:16] LABS: Absolute Lymphocyte Count 1.88 X10^3/uL (0.83-4.51); Absolute Neutrophil Count 8.4 X10^3/uL (2.0-7.7); Basophil# 0.08 X10^3/uL; Basophil% 0.7 % (0-1); Eosinophil# 0.01 X10^3/uL; Eosinophils% 0.1 % (0-5); Hemoglobin 14.9 g/dL (13.0-16.5); Lymphocyte # 1.88 X10^3/ul (0.83-4.51); Lymphocyte % 16.2 % (19-41); Mean Corp Hgb Conc 29.8 g/dL (32-36); Mean Corpuscular Hgb 31.7 pg (27.0-32.0); Mean Corpuscular Volume 106.4 fL (80-94); Mean Platelet Vol. 11.3 fl (6.2-12.0); Monocyte# 1.15 X10^3/uL; Monocyte% 9.9 % (0-10); NRBC Flagged by Analyzer 0 % (0-5); Neutrophil # 8.39 X10^3/uL (2.7-7.7); Neutrophil % 72.6 % (47-70); Platelet Count 187 K/mm3 (150-450); RBC Distribution Width CV 12.5 % (11.6-14.6); RBC Distribution Width SD 49.9 fl (35.1-43.9); White Blood Count 11.6 K/mm3 (4.4-11.0)
[2023-06-10 14:48] LABS: Blood Gas Specimen Type VEN; O2 Delivery Device Cannula; VBG BASE EXCESS 23 mmol/L (-1.0-3.5); VBG Bicarbonate 50 mmol/L (22-26); VBG PO2 44 mmHg (25-40); VBG SO2 68 % (50-70); VBG pH 7.28 (7.32-7.42)
--- NOTE | 2023-06-10 15:09 | HP.PCM.HOS_ITS ---
HPI - General General Date of Admission: 06/10/23 Date of Service: 06/10/23 Chief Complaint: Shortness of breath/chest tightness for 3 days HPI Narrative HARJIT ALBERTS, is a 52 M with history of COPD on 4 L of home oxygen and BiPAP 20 12 at night came to ED with worsening of shortness of breath for 3 days. Patient states he felt great could not breathe with chest tightness. Denies significant change in cough or sputum production. His pulse ox dropped to 70s. Patient was also somnolent. Patient had been intubated on ventilator 2 times in the past as per significant others. Has stage IV very severe COPD. Denies fever or chill, chest pressure or anginal quality chest pain. Patient also broke his left foot fracture of 4 metatarsal and bruise on right knee after fall on Father's Day. In ED, patient was tachypneic respiratory rate 22, heart rate 84 pulse ox 95% on 4 L of oxygen. VBG 7.28/Mixed PCO2 106 4 L of oxygen. Patient was immediately put on BiPAP/AVAPS. Chest x-ray PA and lateral views individually reviewed and shows under ventilation with chronic interstitial changes. No acute interval change. Mild dilatation of left pulmonary artery reported. Patient is further admitted in PCU [facility] Medical History Acute respiratory failure with hypoxia and hypercapnia Anxiety BiPAP (biphasic positive airway pressure) dependence Blood disorder Cardiology follow-up encounter Chronic hypoxemic respiratory failure Chronic respiratory failure with hypoxia Closed fracture dislocation of joint of left lower extremity Closed fracture of left tibial plateau Congestive heart failure Congestive heart failure (CHF) COPD (chronic obstructive pulmonary disease) Depression Former smoker History of echocardiogram History of edema History of pain when walking HTN (hypertension) Hypertension Incarcerated umbilical hernia Obesities, morbid Obesity hypoventilation syndrome On home oxygen therapy LAYLA (obstructive sleep apnea) Other specified injury of left quadriceps muscle, fascia and tendon, initial encounter Pulmonary embolism Pulmonary HTN Pulmonary hypertension Seasonal allergies Stage 4 very severe COPD by GOLD classification Stage 4 very severe COPD by GOLD classification Tobacco dependence Uses wheelchair Home Medications spironolactone 25 mg tablet 25 mg PO BID bp 12/02/15 [History Last Taken 01/01/23] metoprolol succinate 50 mg tablet,extended release 24 hr 50 mg PO BID Heart 10/19/18 [History Last Taken 01/01/23] bupropion HCl 150 mg 24 hr tablet, extended release (Wellbutrin XL) 150 mg PO BID mental health 10/11/21 [History Last Taken 01/01/23] acetaminophen 500 mg tablet 1,000 mg PO Q6H PRN Pain 11/04/21 [History Last Taken 11/07/21 20:00] cyanocobalamin (vitamin B-12) 500 mcg tablet 500 mcg PO DAILY SUPPLEMENT 11/08/21 [History Last Taken 01/01/23] sertraline 100 mg tablet 100 mg PO DAILY mental health 01/23/22 [History Last Taken 01/01/23] montelukast 10 mg tablet (Singulair) 10 mg PO QPM COPD #30 tabs 06/30/22 [Rx Last Taken 12/31/22] mepolizumab 100 mg/mL subcutaneous auto-injector (Nucala) 300 mg subcut Q4W asthma 11/05/22 [History Last Taken 12/10/22] apixaban 5 mg tablet (Eliquis) 5 mg PO BID #74 tabs 11/08/22 [Rx Last Taken 01/01/23] guaifenesin 1,200 mg tablet, extended release 12 hr 1,200 mg PO Q12H PRN Cough #14 tabs 11/08/22 [Rx Last Taken 12/31/22] losartan 25 mg tablet 25 mg PO DAILY #30 tabs 11/08/22 [Rx Last Taken 01/01/23] sennosides 8.6 mg-docusate sodium 50 mg tablet (Stool Softener-Stimulant Laxative) 2 tab PO BID PRN PRN Constipation #0 tabs 11/08/22 [Rx Last Taken Unknown] torsemide 20 mg tablet 20 mg PO BID #60 tabs 11/08/22 [Rx Last Taken 12/31/22] furosemide 40 mg tablet 40 mg PO DAILY FLUID 01/01/23 [History Last Taken 12/31/22] [id number] acid-vit K-lycop 400 mcg-20 mcg-370 mcg tablet (Men's 50 Plus Multivitamin) 1 tab PO DAILY SUPPLEMENT 01/01/23 [History Last Taken 12/31/22] ipratropium 0.5 mg-albuterol 3 mg (2.5 mg base)/3 mL nebulization soln 3 ml inhalation Q4H PRN Wheezing #360 mL 03/13/23 [Rx Last Taken Unknown] prednisone 10 mg tablet 10 mg PO DAILY #40 tabs 03/13/23 [Rx Last Taken Unknown] oxycodone 5 mg tablet 5 mg PO TID PRN Shortness Of Breath 05/09/23 [History Last Taken Unknown] guaifenesin 600 mg tablet, extended release 12 hr (Mucus Relief ER) 600 mg PO BI D #20 tabs 05/10/23 [Rx Last Taken Unknown] levofloxacin 750 mg tablet 750 mg PO DAILY #5 tabs 05/10/23 [Rx Last Taken Unknown] prednisone 20 mg tablet 40 mg (2 x 20 mg) PO BREAKFAST #10 tabs 05/10/23 [Rx Last Taken Unknown] hydrocodone-acetaminophen 5-325mg 5mg-325mg 1 tab PO Q6H PRN PRN Pain 3 days #12 TABLETS 05/13/23 [Rx Last Taken Unknown] tramadol 50 mg tablet 50 mg PO Q4H PRN PRN Pain 3 days #20 tabs 05/14/23 [Rx Last Taken Unknown] albuterol sulfate 2.5 mg/3 mL (0.083 %) solution for nebulization 2.5 mg (3 mL) inhalation Q4H PRN shortness of breath or wheezing #360 mL 05/23/23 [Rx Last Taken Unknown] albuterol sulfate 90 mcg/actuation aerosol inhaler (Ventolin HFA) 2 puff inhalation Q4H PRN shortness of breath or wheezing #18 grams 05/23/23 [Rx Last Taken Unknown] budesonide-formoterol HFA 160 mcg-4.5 mcg/actuation aerosol inhaler (Symbicort) 2 puff inhalation BID BREATHING #10.2 grams 05/23/23 [Rx Last Taken Unknown] cetirizine 10 mg tablet 10 mg PO DAILY #90 tabs 05/30/23 [Rx Last Taken Unknown] Allergy/AdvReac Type Severity Reaction Status Date / Time clarithromycin [From Biaxin] Allergy Hives Verified 06/10/23 11:46 Penicillins Allergy Hives Verified 06/10/23 11:46 Family History Mother Diabetes Breast cancer Heart disease Hypertension COPD (chronic obstructive pulmonary disease) Asthma Father Hypertension CVA (cerebral vascular accident) Surgical History History of hernia repair (~08/2018) History of tonsillectomy History of tooth extraction Hx of cardiac cath Social History household members: spouse Smoking Status: Current some day smoker tobacco type: cigarettes how long ago did patient quit smoking: Patient admits to smoking 1 cigarette to 2 cigarettes weekly second hand exposure: Yes quit status: has quit before alcohol intake: never substance use type: does not use ROS ROS Narrative Constitutional: Reports fatigue and weakness. No fever. HEENT: Reports systems reviewed and no addt'l complaints, except as documented Respiratory/Chest: As described in HPI CVS: As described in HPI Gastrointestinal: Denies coffee ground emesis, hematemesis or vomiting Genitourinary: Denies burning urination or new urinary tract symptoms Musculoskeletal: Denies acute joint pain or limited range of motion. No acute injury Neurologic: Denies seizure-like symptoms. skin: No ulcer. No rash Endocrinology: Reports systems reviewed and no addt'l complaints, except as documented Hematologic/Lymphatic: Reports systems reviewed and no addt'l complaints, except as documented Rest 14 ROS are negative except as mentioned in HPI Vital Signs Vital Signs Vital Signs: 06/10/23 11:46 06/10/23 11:51 06/10/23 13:09 Temperature 98.4 F Temperature Source Oral Pulse Rate 84 80 Respiratory Rate 22 H 18 Respiratory Effort Short of Breath Labored Respiratory Depth Normal Respiratory Pattern Tachypnea Normal Blood Pressure 140/91 H Blood Pressure Mean 107 Pulse Ox 95 Oxygen Delivery Method Nasal Cannula Nasal Cannula Oxygen Flow Rate (L/min) 4 4 Fraction of Inspired Oxygen (FIO2) 06/10/23 13:24 06/10/23 14:00 06/10/23 14:05 Temperature 97.8 F Temperature Source Oral Pulse Rate 79 74 71 Respiratory Rate 22 H 26 H 18 Respiratory Effort Respiratory Depth Respiratory Pattern Tachypnea Blood Pressure 120/86 H Blood Pressure Mean 97 Pulse Ox 94 95 92 Oxygen Delivery Method Bi-pap Bi-pap Oxygen Flow Rate (L/min) Fraction of Inspired Oxygen (FIO2) 35 Physical Exam Narrative General: Alert, Oriented x3, Cooperative, morbid obesity HEENT: Atraumatic, PERRLA, EOMI, Normocephalic Oral: On BiPAP mask. Neck: Supple, No JVD, Negative Carotid Bruits Lungs: Air entry severely diminished bilaterally. Mild wheezing. hypoxia and tachypnea Cardiovascular: Regular rate, Regular Rhythm, Normal S1, Normal S2, No murmurs Abdomen: Bowel Sounds Present, Soft, Non Tender, Non-Distended : No renal angle tenderness. No suprapubic tenderness. Extremities: Mild bilateral pitting edema, Capillary Refill Less than 3 Seconds Skin: Healing bruise over right knee. Musculoskeletal: Fracture of left toe/metatarsal on boot. No Tenderness to Palpation of Joints or Extremities Neurological: Cranial nerves II-XII grossly intact, DTR 2+/4 and Symmetrical, neuro nonfocal exam Psych/Mental Status: Flat affect. Results Lab / Micro Data 06/10/23 11:53 06/10/23 11:53 Labs: Laboratory Results - last 24 hr 06/10/23 11:53: WBC 11.6 H, RBC 4.70, Hgb 14.9, Hct 50.0, MCV 106.4 H, MCH 31.7, MCHC 29.8 L, RDW Std Deviation 49.9 H, RDW Coeff of Valerie 12.5, Plt Count 187, MPV 11.3, Immature Gran % (Auto) 0.500, Neut % (Auto) 72.6 H, Lymph % (Auto) 16.2 L, Rogers % (Auto) 9.9, Eos % (Auto) 0.1, Baso % (Auto) 0.7, Absolute Neuts (auto) 8.4 H, Absolute Lymphs (auto) 1.88, Nucleated RBC % 0, Sodium 134 L, Potassium 4.1, Chloride 88 L, Carbon Dioxide > 45.0 H*, Anion Gap TNP, BUN 11, Creatinine 0.73, Est GFR (MDRD) Af Amer 143, Est GFR (MDRD) Non-Af 118, BUN/Creatinine Ratio 15.0, Glucose 144 H, Calcium 9.3, Troponin I High Sens 13, B-Natriuretic Peptide 62.9 ABG Data ABG results: ABG 06/10/23 13:01 Specimen Type PAPITO VBG pH 7.28 L VBG pO2 44 H VBG HCO3 50 H VBG O2 Sat (Calc) 68 VBG Base Excess 23 H POC Mix VBG pCO2 Pt Tmp 106.0 H* O2 Delivery Device Cannula Liter Flow 4.0 Crit Call To/Read Back Yes Blood Gas Notified Whom pippa Blood Gas Notified Time 13:05:21 Radiology Impression Chest X-Ray 06/10/23 12:10 IMPRESSION: 1. No acute findings in the chest. 2. Mild dilatation of the left main pulmonary artery suspicious for poststenotic dilatation of the pulmonic valve. 2-D echocardiogram will help clarify if clinically warranted. 3. No interval change when compared to 05/09/2023. Electronically Signed: Shaun Lowe MD at 13:19 EDT , Assessment & Plan Assessment/Plan (1) Acute respiratory failure with hypoxia and hypercapnia: (2) Acute exacerbation of chronic obstructive pulmonary disease: PLAN: Plan This is a 52-year-old gentleman being admitted for acute shortness of breath for 3 days consistent with COPD exacerbation 1. Acute on chronic combined hypercarbic and hypoxic respiratory failure due COPD exacerbation: Patient is being admitted in PCU. Currently on AVAPS 35% FiO2, TV 450 mill, . Will need ABG after 2 hours. Pulmonary consult requested. 3. COPD exacerbation with stage IV COPD as per Gold classification: Patient rodney carrizales Dr. Benavides last seen in March 2023 and was treated with prednisone burst and changed loratadine to cetirizine. . He was last admitted in between 05/09 to 05/10 for COPD exacerbation. Chest x-ray mutilative does not show acute change. DuoNeb every 4 hourly, IV Solu-Medrol, doxycycline as he is allergic to erythromycin, incentive spirometry/Pep. Pulmonary consult requested. 3. History of pulmonary embolism: The patient was diagnosed in October 2022. Patient on apixaban and continued. 4. Hypertension: Blood pressure 120/86. Hold losartan, may resume from tomorrow. 5. Obstructive sleep apnea: On BiPAP at night at home. 6. Chronic congestive heart failure with preserved ejection fraction: Patient on torsemide 20 mg twice daily. Lasix 20 mg IV 1 dose now and then resume torse mide 20 mg p.o. twice daily. Echocardiogram 04/13/2021 shows an EF of 65% with stage II diastolic dysfunction, structurally normal valves and a pulmonary artery systolic pressure of 60 mmHg. 7. Tobacco dependence: Patient is still smokes 1 to 2 cigarettes/week. Encourage cessation of smoking. Nicotine patch. 8. Chronic seasonal allergies: Patient on Singulair and cetirizine. 9. Depression/anxiety -Patient is on Wellbutrin as well as Zoloft continued 10. DVT prophylaxis: Patient on apixaban. Living will/advanced directive/end of life care: Patient does have living will or advanced directive. His significant other/fianc? is power of attorney lawyer for health. After discussion of benefits/risks procedures involved with full code, DNR CC arrest and DNR CC, the patient and significant other's opted for full code. Patient has been intubated on ventilator twice in the past and does not want preemptive intubation. Patient does want artificial life support including intubation, tube feed, ventilator and/chest compression, central venous catheter, vasopressor and DC shock if needed Total time spent in [id number] encounter in discussion of advanced directive 17 minutes. Charges/Coding Visit Charges Inpatient E&M: 59958 Init Hosp L3 Procedures Hospitalists Procedures: 74608 Advncd Care Plan 30 Min
[2023-06-10 15:26] LABS: Magnesium 2.1 mg/dL (1.6-2.6)
[2023-06-10] MEDS: Furosemide 20 MG/2 ML VIAL IV (16:42)
--- NOTE | 2023-06-10 17:45 | CPS ---
Critical value verified times two. Hand delivered results to ore charger. Results sent to MD.
[2023-06-10 18:24] LABS: Allen Test Positive; Base Excess 28 mmol/L (-2 to +2); Blood Gas Specimen Type ART; FI02 35; O2 Delivery Device BiPAP; PO2 54 mmHG (75-100); SITE L Radial; SO2 79 % (95-99); Total Carbon Dioxide > 50 mmol/L; pCO2 118.7 mmHg (35-45); pH 7.27 (7.35-7.45)
[2023-06-10] MEDS: Methylprednisolone Sod Succ 40 MG/ML VIAL IV (21:12)
[2023-06-10] MEDS: 0.9% Saline Lock 10 ML Syringe IV (21:14)
--- NOTE | 2023-06-10 22:21 | CPS ---
RN called, Patient 78% and having a hard time breathing, Aerosal requested. Patient increassed to 100% on Bipap and recovered quickly
[2023-06-11] VITALS (39 sets, daily range): BP systolic 118–181; BP diastolic 55–150; PULSE 60–105; RESP 12–28; TEMP 36.2–36.9; O2SAT 85–98; BMI 43.9
[2023-06-11] MEDS: Ipratropium/Albuterol Sulfate 3 ML AMPUL.NEB INHALATION ×5 (00:08→22:47)
--- NOTE | 2023-06-11 02:05 | CPS ---
ABG declined from patient after x2 attempts by STONE REPAIRER, RN notified
--- NOTE | 2023-06-11 05:03 | PCM.HOSP.N ---
Hospitalist Note ABG improved but patient still with intermittent confusion, slow response. To be cautious will transition to the ICU in case of intubation needs.
[2023-06-11 05:06] LABS: Absolute Lymphocyte Count 0.89 X10^3/uL (0.83-4.51); Absolute Neutrophil Count 7.9 X10^3/uL (2.0-7.7); Basophil# 0.01 X10^3/uL; Basophil% 0.1 % (0-1); Hematocrit 46.2 % (40-54); Hemoglobin 13.8 g/dL (13.0-16.5); Lymphocyte # 0.89 X10^3/ul (0.83-4.51); Lymphocyte % 9.6 % (19-41); Mean Corp Hgb Conc 29.9 g/dL (32-36); Mean Corpuscular Hgb 32.2 pg (27.0-32.0); Mean Corpuscular Volume 107.9 fL (80-94); Monocyte% 5.4 % (0-10); NRBC Flagged by Analyzer 0 % (0-5); Neutrophil # 7.85 X10^3/uL (2.7-7.7); Neutrophil % 84.4 % (47-70); Platelet Count 191 K/mm3 (150-450); RBC Distribution Width CV 12.5 % (11.6-14.6); RBC Distribution Width SD 49.3 fl (35.1-43.9); Red Blood Count 4.28 M/mm3 (4.6-6.2); White Blood Count 9.3 K/mm3 (4.4-11.0)
--- NOTE | 2023-06-11 05:44 | NURSING ---
pt transferred from pcu to [facility] 201 with rn and respiratory therapy and cont bipap. pt a&ox3 Lung dim with wheezes on lt side. bipap on at 35% denies pain or sob, call light with in reach
--- NOTE | 2023-06-11 05:49 | NURSING ---
Patient very drowsy and taking several attempts to reorient even while remaining on Bipap through the night. Notified White and obtained ABG. Transferred to ICU. Pt more alert upon transfer.
[2023-06-11 05:53] LABS: BUN 16 mg/dL (7-18); BUN/Creat Ratio 22.4 RATIO (10-20); Calcium,Total 9.6 mg/dL (8.5-10.1); Chloride 89 mmol/L (98-107); Creatinine, Serum 0.71 mg/dL (0.70-1.30); EST Glomerular Filtration Rate 122 mL/min (>60); Est Glom Filt Rate - Afr Amer 147 mL/min (>60); Estimated Creatinine Clearance 130.55 ml/min; Glucose 140 mg/dL (74-106); Potassium 4.4 mmol/L (3.5-5.1); Sodium Level 139 mmol/L (136-145)
[2023-06-11 06:20] LABS: Carbon Dioxide > 45.0 mmol/L (21.0-32.0)
[2023-06-11 06:30] LABS: Allen Test Positive; Base Excess 25 mmol/L (-2 to +2); Bicarbonate 50.9 mmol/L (22-26); Blood Gas Specimen Type ART; FI02 35; O2 Delivery Device BiPAP; PEEP 14; PO2 57 mmHG (75-100); RR 12; SITE L Radial; SO2 83 % (95-99); Total Carbon Dioxide > 50 mmol/L; Vt 500; pCO2 98.5 mmHg (35-45); pH 7.32 (7.35-7.45)
[2023-06-11] MEDS: Methylprednisolone Sod Succ 40 MG/ML VIAL IV ×3 (06:30→21:29)
--- NOTE | 2023-06-11 07:24 | EX.PCM.CONCC ---
Assessment & Plan Assessment/Plan (1) Acute respiratory failure with hypoxia and hypercapnia: (2) COPD exacerbation: (3) LAYLA (obstructive sleep apnea): (4) Severe persistent asthma: QUALIFIERS: Asthma complication type: uncomplicated Qualified Code(s): J45.50 - Severe persistent asthma, uncomplicated PLAN: Plan RECOMMENDATIONS: 1. Continue BiPAP rescue for now 2. Okay to continue steroids, bronchodilators 3. Wean oxygen to keep saturations between 90 and 94% 4. Diuretic challenge 5. Potential BiPAP breaks after lunch, continue with sleep 6. N.p.o. for now, but possible p.o. diet this afternoon IMPRESSIONS: 1. Acute on chronic combined respiratory failure Unclear etiology at this time. Patient initially had hypoxia that led to CO2 retention. This may be secondary to empiric increase in supplemental oxygen. We will challenge with diuretic therapy. Patient appears to be responding well to BiPAP at this time. Okay to continue with bronchodilators and steroids. Low clinical suspicion for infectious etiology. Patient will be monitored for 24 hours to assess for possible need for intubation. 2. Severe pulmonary hypertension/LAYLA Unfortunately, given patient's body habitus, pulmonary artery pressures cannot be easily estimated. Patient is typically on 18/12 cmH2O with 4 L bleed to help with sleep. Patient can likely resume the settings. We will attempt diuretic therapy to help with any cor pulmonale. BNP was not significantly elevated. 3. Recent foot fracture/morbid obesity/seasonal allergies/hypertension Complicates care, management, recovery and prognosis. Patient does receive steroids frequently and likely has an element of osteopenia. Blood pressures appear to be adequate at this time. TIME: 35 minutes critical care time spent addressing patient's acute on chronic respiratory failure, review of all data and collaboration with care team HPI Consult Data Date of Consult: 06/11/23 HPI Narrative Reason for Consultation: Respiratory failure HPI Narrative: HARJIT ALBERTS is a 52 M, with past medical history listed below and well-known to me from the outpatient office, who presents to [facility] on 06/10/2023 secondary to progressive shortness of breath over the previous 24 to 48 hours. Patient is on 4 L nasal cannula oxygen at baseline at is compliant with BiPAP therapy at night. Patient reportedly had complained of chest tightness and saturations that dropped into the 70s. Patient had increased his oxygen but became more somnolent with glossy eyes. Patient had reported decreased urine output over the last 24 to 48 hours. In the ER, patient was afebrile, but tachypneic at 22 breaths/min. Patient was slightly hypertensive at 140/91, but saturating well on 4 L nasal cannula. And a blood gas was obtained showing significant CO2 retention, so BiPAP was initiated. Laboratory work-up showed a white blood cell count of 11.6, hemoglobin of 14.9 and platelets of 187. Patient did not have a significant eosinophilia. Chemistry showed an elevated bicarbonate, but normal renal function and only a slightly elevated glucose of 144. BNP was 62.9. Venous blood gas showed a pH of 7.29 with a bicarbonate of 50. Chest x-ray showed no acute findings in the chest. Patient was admitted to the floor for further evaluation. Since being on the floor, patient has become more somnolent and was requiring increased BiPAP settings secondary to failure to respond from a CO2 perspective. Patient was transferred to the intensive care unit for potential intubation if necessary. Patient was assessed on arrival and was very confused and I am unable to provide any additional information at this time. [facility] Medical History Acute respiratory failure with hypoxia and hypercapnia Anxiety BiPAP (biphasic positive airway pressure) dependence Blood disorder Cardiology follow-up encounter Chronic hypoxemic respiratory failure Chronic respiratory failure with hypoxia Closed fracture dislocation of joint of left lower extremity Closed fracture of left tibial plateau Congestive heart failure Congestive heart failure (CHF) COPD (chronic obstructive pulmonary disease) Depression Former smoker History of echocardiogram History of edema History of pain when walking HTN (hypertension) Hypertension Incarcerated umbilical hernia Obesities, morbid Obesity hypoventilation syndrome On home oxygen therapy LAYLA (obstructive sleep apnea) Other specified injury of left quadriceps muscle, fascia and tendon, initial encounter Pulmonary embolism Pulmonary HTN Pulmonary hypertension Seasonal allergies Stage 4 very severe COPD by GOLD classification Stage 4 very severe COPD by GOLD classification Tobacco dependence Uses wheelchair Home Medications spironolactone 25 mg tablet 25 mg PO BID bp 12/02/15 [History Last Taken 01/01/23] metoprolol succinate 50 mg tablet,extended release 24 hr 50 mg PO BID Heart 09/13/18 [History Last Taken 01/01/23] bupropion HCl 150 mg 24 hr tablet, extended release (Wellbutrin XL) 150 mg PO BID mental health 10/11/21 [History Last Taken 01/01/23] acetaminophen 500 mg tablet 1,000 mg PO Q6H PRN Pain 11/04/21 [History Last Taken 11/07/21 20:00] cyanocobalamin (vitamin B-12) 500 mcg tablet 500 mcg PO DAILY SUPPLEMENT 11/08/21 [History Last Taken 01/01/23] sertraline 100 mg tablet 100 mg PO DAILY mental health 01/23/22 [History Last Taken 01/01/23] montelukast 10 mg tablet (Singulair) 10 mg PO QPM COPD #30 tabs 06/30/22 [Rx Last Taken 12/31/22] mepolizumab 100 mg/mL subcutaneous auto-injector (Nucala) 300 mg subcut Q4W asthma 11/05/22 [History Last Taken 12/10/22] guaifenesin 1,200 mg tablet, extended release 12 hr 1,200 mg PO Q12H PRN Cough #14 tabs 11/08/22 [Rx Last Taken 12/31/22] losartan 25 mg tablet 25 mg PO DAILY #30 tabs 11/08/22 [Rx Last Taken 01/01/23] sennosides 8.6 mg-docusate sodium 50 mg tablet (Stool Softener-Stimulant Laxative) 2 tab PO BID PRN PRN Constipation #0 tabs 11/08/22 [Rx Last Taken Unknown] torsemide 20 mg tablet 20 mg PO BID #60 tabs 11/08/22 [Rx Last Taken 12/31/22] furosemide 40 mg tablet 40 mg PO DAILY FLUID 01/01/23 [History Last Taken 12/31/22] [id number] acid-vit K-lycop 400 mcg-20 mcg-370 mcg tablet (Men's 50 Plus Multivitamin) 1 tab PO DAILY SUPPLEMENT 01/01/23 [History Last Taken 12/31/22] ipratropium 0.5 mg-albuterol 3 mg (2.5 mg base)/3 mL nebulization soln 3 ml inhalation Q4H PRN Wheezing #360 mL 03/13/23 [Rx Last Taken Unknown] prednisone 10 mg tablet 10 mg PO DAILY #40 tabs 03/13/23 [Rx Last Taken Unknown] oxycodone 5 mg tablet 5 mg PO TID PRN Shortness Of Breath 05/09/23 [History Last Taken Unknown] guaifenesin 600 mg tablet, extended release 12 hr (Mucus Relief ER) 600 mg PO BID #20 tabs 05/10/23 [Rx Last Taken Unknown] levofloxacin 750 mg tablet 750 mg PO DAILY #5 tabs 05/10/23 [Rx Last Taken Unknown] prednisone 20 mg tablet 40 mg (2 x 20 mg) PO BREAKFAST #10 tabs 05/10/23 [Rx Last Taken Unknown] hydrocodone-acetaminophen 5-325mg 5mg-325mg 1 tab PO Q6H PRN PRN Pain 3 days #12 TABLETS 05/13/23 [Rx Last Taken Unknown] tramadol 50 mg tablet 50 mg PO Q4H PRN PRN Pain 3 days #20 tabs 05/14/23 [Rx Last Taken Unknown] albuterol sulfate 2.5 mg/3 mL (0.083 %) solution for nebulization 2.5 mg (3 mL) inhalation Q4H PRN shortness of breath or wheezing #360 mL 05/23/23 [Rx Last Taken Unknown] albuterol sulfate 90 mcg/actuation aerosol inhaler (Ventolin HFA) 2 puff inhalation Q4H PRN shortness of breath or wheezing #18 grams 05/23/23 [Rx Last Taken Unknown] budesonide-formoterol HFA 160 mcg-4.5 mcg/actuation aerosol inhaler (Symbicort) 2 puff inhalation BID BREATHING #10.2 grams 05/23/23 [Rx Last Taken Unknown] cetirizine 10 mg tablet 10 mg PO DAILY #90 tabs 05/30/23 [Rx Last Taken Unknown] apixaban 5 mg tablet (Eliquis) 5 mg PO DAILY 06/10/23 [History Last Taken Unknown] metoprolol tartrate 50 mg tablet 50 mg PO BID bp 06/10/23 [History Last Taken Unknown] Allergy/AdvReac Type Severity Reaction Status Date / Time clarithromycin [From Biaxin] Allergy Hives Verified 06/10/23 11:46 Penicillins Allergy Hives Verified 06/10/23 11:46 Family History Mother Diabetes Breast cancer Heart disease Hypertension COPD (chronic obstructive pulmonary disease) Asthma Father Hypertension CVA (cerebral vascular accident) Surgical History History of hernia repair (~08/2018) History of tonsillectomy History of tooth extraction Hx of cardiac cath Social History household members: spouse Smoking Status: Current some day smoker tobacco type: cigarettes how long ago did patient quit smoking: Patient admits to smoking 1 cigarette to 2 cigarettes weekly second hand exposure: Yes quit status: has quit before alcohol intake: never substance use type: does not use ROS Review of Systems ROS Unobtainable: due to mental status Physical Exam Const no apparent distress Constitutional Narrative: Confused, but wakes with stimulation General Appearance: cooperative and lethargic HEENT normocephalic and head/scalp atraumatic HEENT Narrative: BiPAP mask in place Eyes PERRL, EOMs intact bilaterally and conjunctivae normal Eyes Narrative: Scleral injection noted Neck supple General: trachea midline Chest Chest Narrative: Increased AP diameter Resp Resp Narrative: Globally diminished air movement throughout all lung ring. Effort and Inspection: Negative for actively coughing Cardio regular rate, regular rhythm, no murmurs, no rub and no gallops GI normal to inspection, nondistended, normoactive bowel sounds Extremity General Extremity: edema; Negative for clubbing Skin General Skin Exam: venous stasis Neuro CN's II-XII intact bilaterally, moves all extremities and no focal motor deficits Psych Psych Narrative: Restless when awakened Activity / Motor Behavior: restless Mood & Affect: flat affect Medical Records Data Attestation: I reviewed the patient's medical records Medical records narrative: Patient with severe disease noted on PFT in 2018. This has not been repeated. Patient did have an echocardiogram in January showing an EF of 65% with an inability to get pulmonary artery pressures. Lab / Micro Data Attestation: I reviewed the patient's lab results. 06/11/23 04:53 06/11/23 04:53 Labs: Laboratory Results - last 24 hr 06/10/23 11:53: WBC 11.6 H, RBC 4.70, Hgb 14.9, Hct 50.0, MCV 106.4 H, MCH 31.7, MCHC 29.8 L, RDW Std Deviation 49.9 H, RDW Coeff of Valerie 12.5, Plt Count 187, MPV 11.3, Immature Gran % (Auto) 0.500, Neut % (Auto) 72.6 H, Lymph % (Auto) 16.2 L, [place] % (Auto) 9.9, Eos % (Auto) 0.1, Baso % (Auto) 0.7, Absolute Neuts (auto) 8.4 H, Absolute Lymphs (auto) 1.88, Nucleated RBC % 0, Sodium 134 L, Potassium 4.1, Chloride 88 L, Carbon Dioxide > 45.0 H*, Anion Gap TNP, BUN 11, Creatinine 0.73, Est GFR (MDRD) Af Amer 143, Est GFR (MDRD) Non-Af 118, BUN/Creatinine Ratio 15.0, Glucose 144 H, Calcium 9.3, Magnesium 2.1, Troponin I High Sens 13, B-Natriuretic Peptide 62.9 06/11/23 04:53: WBC 9.3, RBC 4.28 L, Hgb 13.8, Hct 46.2, MCV 107.9 H, MCH 32.2 H, MCHC 29.9 L, RDW Std Deviation 49.3 H, RDW Coeff of Valerie 12.5, Plt Count 191, MPV 11.0, Immature Gran % (Auto) 0.500, Neut % (Auto) 84.4 H, Lymph % (Auto) 9.6 L, Sullivan % (Auto) 5.4, Eos % (Auto) 0.0, Baso % (Auto) 0.1, Absolute Neuts (auto) 7.9 H, Absolute Lymphs (auto) 0.89, Nucleated RBC % 0, Sodium 139, Potassium 4.4, Chloride 89 L, Carbon Dioxide > 45.0 H*, Anion Gap TNP, BUN 16, Creatinine 0.71, Estim Creat Clear Calc 130.55, Est GFR (MDRD) Af Amer 147, Est GFR (MDRD) Non-Af 122, BUN/Creatinine Ratio 22.4 H, Glucose 140 H, Calcium 9.6 Micro: Microbiology 06/10/23 16:05 Mucosa - Nose Respiratory Panel (PCR) - Final 06/10/23 15:43 Nasal Secretion SARS-CoV-2 Antigen (Rapid) - Final ABG Data ABG results: ABG 06/10/23 06/10/23 06/11/23 13:01 17:32 04:51 Specimen Type PAPITO ART ART Sample Site L Radial L Radial pH 7.27 L 7.32 L Bicarbonate Actual 55.0 H 50.9 H Total CO2 > 50 > 50 Base Excess 28 H 25 H O2 Saturation 79 L 83 L O2 % 35 35 ABG pCO2 118.7 H* 98.5 H* ABG pO2 54 L 57 L Tal Test Positive Positive VBG pH 7.28 L VBG pO2 44 H VBG HCO3 50 H VBG O2 Sat (Calc) 68 VBG Base Excess 23 H POC Mix VBG pCO2 Pt Tmp 106.0 H* Respiration Rate 12 O2 Delivery Device Cannula BiPAP BiPAP Liter Flow 4.0 Tidal Volume 500 POC PEEP 14 Crit Call To/Read Back Yes Yes Yes Blood Gas Notified Whom pippa love white Blood Gas Notified Time 13:05:21 Clinical Comments Attestation: I personally reviewed and interpreted this ABG as follows: (Partially compensated chronic respiratory acidosis with increased AA gradient) Radiology Impression Chest X-Ray 06/10/23 12:10 IMPRESSION: 1. No acute findings in the chest. 2. Mild dilatation of the left main pulmonary artery suspicious for poststenotic dilatation of the pulmonic valve. 2-D echocardiogram will help clarify if clinically warranted. 3. No interval change when compared to 05/09/2023. Electronically Signed: Shaun Lowe MD at 13:19 EDT , Charges/Coding Procedures Hospitalists Procedures: [id number] Critial Care 1st Hr
--- NOTE | 2023-06-11 08:07 | CASEMGMT ---
Social Work Power of Door Captain for healthcare w/Living Will provision initialed is scanned into the echart. Laura Mirza is listed as pt's healthcare POA. MAYLIN Laureano
--- NOTE | 2023-06-11 09:14 | PN.HOSP_ITS ---
Reason for Visit Reason for Visit: Shortness of breath Subjective Subjective Mr. Ku is a 52-year-old white male who presented to the emergency department at [facility] [place] on 06/10/2023 with shortness of breath and chest tightness that had been ongoing for approximately 3 days. He has COPD and is on 4 L of oxygen at home and wears BiPAP 20 over 12 at night. Patient reported he felt okay but could not breathe with chest tightness. He denied any change in sputum or cough. His oxygen saturations dropped to 70% on his baseline oxygen and he was somnolent. He has been intubated previously twice and he has stage IV severe COPD at baseline with an FEV1 of 44% which was from PFTs performed in 2019. He denied any fever chills, chest pressure of anginal quality. Vital signs on presentation demonstrated temperature of 98.4, respiratory 22, heart rate 84, blood pressure is 140/91 and oxygen saturations were initially 94% on his baseline 4 L however he did desaturate into the 70s and was placed on his home BiPAP. CBC on presentation showed a white count of 11.6 with a mild left shift that 72.6% neutrophilia and was otherwise unremarkable. Chemistry panel was consistent with chronic hypercapnia having a bicarb of greater than 45 but was otherwise unremarkable. Opponent was normal at 13 and his BNP was 62.9. Chest x-ray was unremarkable for any acute findings but did show mild dilation of the left pulmonary artery consistent with pulmonary hypertension. He was initially admitted to the medical floor with acute on chronic hypercapnic and hypoxic respiratory failure due to a COPD exacerbation and was placed on scheduled DuoNebs, as needed albuterol, IV Solu-Medrol, and doxycycline. COVID testing was unremarkable. Respiratory viral panel was unremarkable. I will go ahead and discontinue his antibiotics today as this does not seem to be infectious in nature given his history. This morning he is resting comfortably on BiPAP with intent to transition later today off of BiPAP to nasal cannula and wean as tolerated. Pulmonary medicine is following and very familiar with him as he is there outpatient. Objective Data Objective Data Vital Signs: Vital Signs Temp Pulse Resp BP Pulse Ox O2 Del Method O2 Flow Rate 98.2 F 85 18 163/94 H 95 Bi-pap 8 06/11/23 08:00 06/11/23 08:00 06/11/23 08:00 06/11/23 08:00 06/11/23 08:00 06/11/23 08:00 06/10/23 16:50 FiO2 40 06/11/23 08:00 Oxygen Flow Rate (L/min) 8 Oxygen Delivery Method Bi-pap Weight: 147.3 kg Body Mass Index (BMI) 43.9 Intake & Output: Intake and Output for Last 24 Hours 06/09/23 06/10/23 06/11/23 23:59 23:59 23:59 Intake Total 0 / 0 Balance 0 / 0 Lab / Micro Data 06/11/23 04:53 06/11/23 04:53 Labs: Laboratory Results - last 24 hr 06/10/23 11:53: WBC 11.6 H, RBC 4.70, Hgb 14.9, Hct 50.0, MCV 106.4 H, MCH 31.7, MCHC 29.8 L, RDW Std Deviation 49.9 H, RDW Coeff of Valerie 12.5, Plt Count 187, MPV 11.3, Immature Gran % (Auto) 0.500, Neut % (Auto) 72.6 H, Lymph % (Auto) 16.2 L, [place] % (Auto) 9.9, Eos % (Auto) 0.1, Baso % (Auto) 0.7, Absolute Neuts (auto) 8.4 H, Absolute Lymphs (auto) 1.88, Nucleated RBC % 0, Sodium 134 L, Potassium 4.1, Chloride 88 L, Carbon Dioxide > 45.0 H*, Anion Gap TNP, BUN 11, Creatinine 0.73, Est GFR (MDRD) Af Amer 143, Est GFR (MDRD) Non-Af 118, BUN/Creatinine R atio 15.0, Glucose 144 H, Calcium 9.3, Magnesium 2.1, Troponin I High Sens 13, B-Natriuretic Peptide 62.9 06/11/23 04:53: WBC 9.3, RBC 4.28 L, Hgb 13.8, Hct 46.2, MCV 107.9 H, MCH 32.2 H , MCHC 29.9 L, RDW Std Deviation 49.3 H, RDW Coeff of Valerie 12.5, Plt Count 191, MPV 11.0, Immature Gran % (Auto) 0.500, Neut % (Auto) 84.4 H, Lymph % (Auto) 9.6 L, [place] % (Auto) 5.4, Eos % (Auto) 0.0, Baso % (Auto) 0.1, Absolute Neuts (auto) 7.9 H, Absolute Lymphs (auto) 0.89, Nucleated RBC % 0, Sodium 139, Potassium 4.4, Chloride 89 L, Carbon Dioxide > 45.0 H*, Anion Gap TNP, BUN 16, Creatinine 0.71, Estim Creat Clear Calc 130.55, Est GFR (MDRD) Af Amer 147, Est GFR (MDRD) Non-Af 122, BUN/Creatinine Ratio 22.4 H, Glucose 140 H, Calcium 9.6 Micro: Microbiology 06/10/23 16:05 Mucosa - Nose Respiratory Panel (PCR) - Final 06/10/23 15:43 Nasal Secretion SARS-CoV-2 Antigen (Rapid) - Final ABG Data ABG results: ABG 06/10/23 06/10/23 06/11/23 13:01 17:32 04:51 Specimen Type PAPITO ART ART Sample Site L Radial L Radial pH 7.27 L 7.32 L Bicarbonate Actual 55.0 H 50.9 H Total CO2 > 50 > 50 Base Excess 28 H 25 H O2 Saturation 79 L 83 L O2 % 35 35 ABG pCO2 118.7 H* 98.5 H* ABG pO2 54 L 57 L Tal Test Positive Positive VBG pH 7.28 L VBG pO2 44 H VBG HCO3 50 H VBG O2 Sat (Calc) 68 VBG Base Excess 23 H POC Mix VBG pCO2 Pt Tmp 106.0 H* Respiration Rate 12 O2 Delivery Device Cannula BiPAP BiPAP Liter Flow 4.0 Tidal Volume 500 POC PEEP 14 Crit Call To/Read Back Yes Yes Yes Blood Gas Notified Whom pippa love white Blood Gas Notified Time 13:05:21 Clinical Comments Radiography Diagnostic Testing: Radiology Impression Chest X-Ray 06/10/23 12:10 IMPRESSION: 1. No acute findings in the chest. 2. Mild dilatation of the left main pulmonary artery suspicious for poststenotic dilatation of the pulmonic valve. 2-D echocardiogram will help clarify if clinically warranted. 3. No interval change when compared to 05/09/2023. Electronically Signed: Shaun Lowe MD at 13:19 EDT , Physical Exam Const no apparent distress and well nourished; Negative for alert, average body habitus or healthy appearing Constitutional Narrative: Morbidly obese, middle-aged, white male, lying on his left side sleeping comfortably on BiPAP, appears comfortable and nontoxic HEENT head/scalp atraumatic Head and Scalp: normocephalic Resp normal respiratory effort, no retractions, no use of accessory muscles and clear to auscultation bilaterally Resp Narrative: Diffusely diminished but no adventitious sounds noted, currently on BiPAP Auscultation: Negative for rales, rhonchi or wheezes Cardio regular rate, regular rhythm, S1 normal heart sound, S2 normal heart sound, no murmurs, no rub, no gallops and no clicks GI normal to inspection, nondistended, normoactive bowel sounds, soft to palpation, non-tender and non-distended Extremity Extremity Narrative: Trace bilateral lower extremity pitting edema on right, left foot is in boot due to recent fracture Neuro Neuro Narrative: Patient sleeping comfortably unable to fully assess Psych Psych Narrative: Patient sleeping-unable to assess Assessment & Plan Assessment/Plan PLAN: Plan Acute hypoxia and hypercapnia on chronic hypoxic and hypercapnic respiratory failure secondary to acute exacerbation of COPD -PCO2 is elevated from baseline at 103 causing a drop in his pH to 7.33 causing and only mild respiratory acidosis -Patient wears 3 L of oxygen at baseline and currently requiring 4 L at rest -Did require greater than 6 L with exertion in the emergency department prior to admission -COVID and flu are negative -Check viral respiratory panel -Check strep pneumo and Legionella antigens -Continue steroids with Solu-Medrol 40 every 8 -Aggressive pulmonary toilet with DuoNebs and as needed albuterol -Incentive spirometry -Mucinex 1200 twice daily -Pep therapy with Acapella 10 times every 2 hours while awake -We will start on BiPAP for now to get ahead of his respiratory acidosis and th en utilize nocturnally and with naps as he does at home once stabilized -No antibiotics for now as patient does not have any increase or change in sputum production -Patient does follow with pulmonary medicine as an outpatient--> no current need for consultation Leukocytosis -Doubt infectious -We will do infectious work-up but hold antibiotics for now -White count elevation is very mild and lower than he has been at previous CBC assessments Chronic metabolic alkalosis -Secondary to chronic hypercapnia -Appears to be at baseline Hyperglycemia -Patient without diagnosis of diabetes -Blood sugar was 147 on presentation -We will check hemoglobin A1c Asthma/COPD Gold stage 4 -Documented as end-stage by pulmonary medicine -Treatment as above for exacerbation -Restart inhalers at discharge -Patient is on Nucala as an outpatient once monthly Bilateral pulmonary emboli -Diagnosed in October -Patient has been compliant with his Eliquis -Continue DOAC LAYLA/suspected OHS -Continue BiPAP 12/11 per home regimen with naps and nightly -Currently on continuous BiPAP so we can get of the head of his mild respiratory acidosis Combined right-sided and diastolic heart failure -Continue home torsemide -Echocardiogram 04/13/2021 shows an EF of 65% with stage II diastolic dysfunction, structurally normal valves and a pulmonary artery systolic pressure of 60 mmHg Hypertension -Continue metoprolol -Continue losartan -Continue diuresis -Continue Aldactone -Med rec has patient on Lasix as well however he states he only takes this as needed and takes the torsemide on a regular basis Seasonal allergies -Continue home Singulair Tobacco abuse -Patient is down to 1 to 2 cigarettes a day -Had stop smoking previously -Recommend smoking cessation -No need for nicotine replacement at this time Depression/anxiety -Continue home Wellbutrin -Continue home Zoloft DVT prophylaxis -Continue full anticoagulation with Eliquis CODE STATUS -Full code as verified prior to admission
[2023-06-11] MEDS: Metoprolol Tartrate 50 MG Tablet PO ×2 (09:55→21:29)
[2023-06-11] MEDS: Spironolactone 25 MG Tablet PO ×2 (09:55→21:29)
[2023-06-11] MEDS: Multivitamins,Ther W-Minerals Tablet 1 TABLET PO (09:55)
[2023-06-11] MEDS: Sertraline 100 MG Tablet PO (09:56)
[2023-06-11] MEDS: Loratadine 10 MG Tablet PO (09:56)
[2023-06-11] MEDS: Furosemide 40 MG/4 ML Vial IV (09:56)
[2023-06-11] MEDS: Cyanocobalamin 500 MCG Tablet PO (09:56)
[2023-06-11] MEDS: guaiFENesin/D-Methorphan TAB.SR.12H 1 TABLET PO ×2 (09:56→21:30)
[2023-06-11] MEDS: 0.9% Saline Lock 10 ML Syringe IV ×4 (09:57→21:33)
[2023-06-11] MEDS: buPROPion (SR) 150 MG Tablet.SA PO ×2 (11:58→21:30)
[2023-06-11] MEDS: APIXABAN 5 MG TABLET PO (11:58)
--- NOTE | 2023-06-11 14:25 | CASEMGMT ---
Addendum entered by Darby Flynn 06/11/23 15:45: Call received from [facility]. They are able to accept pt w/SOC slated for . Pt made aware and this was added to discharge plan. Addendum entered by Darby Flynn 06/11/23 15:16: RN CM to room. [facility] preferences are as follows: 1): [facility] 2): [facility] 3): [facility] Call placed to [facility] and referral made. Awaiting response re: acceptance. Original Note: RN?CM?POLITICAL RESEARCH SCIENTIST?CM?to room to meet with patient for initial transition planning/care coordination?assessment.?RN?CM?introduced self and role at [facility].? Pt voices understanding and consents to?assessment?at this time.? Pt sitting on edge of bed in no distress at this time.? Laura Renner, @ bedside and pt agreeable to her being present during assessment. Pt is A/O at this time and answers all questions appropriately.?? Care providers, pharmacy, and demographics verified/updated at this time. PCP: MICHELLE Scott. Pt is scheduled for appt w/her June 26 to get established as a new pt. Specialists: Dr Benavides-pulmonology, Dr Davidson-supervisor blasting in [place], Dr Waller-podiatry Pt is also active w/[facility] Preferred Pharmacy: [facility] Retail Insurance: [employer] MCR Prescription Benefit:?Yes Living Will/HPOA:?Has LW and HCPOA, who is his Laura renner. LNOK: Laura/POA-fiance Living Arrangements: Lives w/Laura renner, in mobile home w/5-6 steps to enter. Pt states does okay w/the stairs. Pt indep w/ADL's. Laura does most home mgnt tasks. Transportation:?Pt and Laura both drive. DME: ?States has the following DME:?shower chair, BSC, cane, walker, W/C, nebulizer x 2, pulse ox, O2 through [employer] 4 L/M during the day and 6 L/M @ HS-bleed-in via BIPAP. Laura states she can bring in portable tank @ d/c for pt to go home on. Pt is wanting to look into getting a power W/C. RN ZORA informed him to discuss this w/his PCP. Pt and Laura state no need for further DME at this time.? HHC/SNF:Hx [facility]. No hx of HHC. Discussed d/c planning. Pt and Laura interested in HHC. A list of HHC providers including quality and resource use data and consistent with the patient?s preferred geographic region, medical needs, and insurance network were provided from the [facility]. Pt wishes to return home and states has no concerns with going home at time of discharge.? CM?to follow for any increase in home oxygen needs and any further discharge planning/needs.? Pt and Laura voice no further concerns/needs at this time.? Advised them to ask for?CM?if any further questions/concerns/needs arise.? They voice understanding. PLAN:??Home w/HHC. Luis MCDOWELLN?RN?CM
[2023-06-11] MEDS: Furosemide 40 MG Tablet PO (17:13)
[2023-06-11] MEDS: Montelukast 10 MG Tablet PO (21:30)
[2023-06-12] VITALS (27 sets, daily range): BP systolic 117–146; BP diastolic 78–105; PULSE 55–100; RESP 12–23; TEMP 35.8–36.8; O2SAT 89–98; BMI 43.9
[2023-06-12] MEDS: 0.9% Saline Lock 10 ML Syringe IV ×3 (03:59→21:46)
[2023-06-12 04:07] LABS: Absolute Lymphocyte Count 1.07 X10^3/uL (0.83-4.51); Basophil# 0.02 X10^3/uL; Basophil% 0.1 % (0-1); Hematocrit 43.9 % (40-54); Hemoglobin 13.3 g/dL (13.0-16.5); Lymphocyte # 1.07 X10^3/ul (0.83-4.51); Lymphocyte % 7.3 % (19-41); Mean Corp Hgb Conc 30.3 g/dL (32-36); Mean Corpuscular Hgb 31.7 pg (27.0-32.0); Mean Corpuscular Volume 104.8 fL (80-94); Mean Platelet Vol. 10.9 fl (6.2-12.0); Monocyte# 0.43 X10^3/uL; Monocyte% 2.9 % (0-10); NRBC Flagged by Analyzer 0 % (0-5); Neutrophil # 12.98 X10^3/uL (2.7-7.7); Neutrophil % 89.2 % (47-70); Platelet Count 185 K/mm3 (150-450); RBC Distribution Width CV 12.2 % (11.6-14.6); RBC Distribution Width SD 47.2 fl (35.1-43.9); Red Blood Count 4.19 M/mm3 (4.6-6.2); White Blood Count 14.6 K/mm3 (4.4-11.0)
[2023-06-12 04:59] LABS: ALB/GLOB Ratio 0.8 RATIO (0.9-2.4); AST(SGOT) 21 U/L (15-37); Alanine Aminotransfer ALT/SGPT 30 U/L (16-61); Alkaline Phosphatase 87 U/L (45-117); BUN 23 mg/dL (7-18); BUN/Creat Ratio 32.2 RATIO (10-20); Calcium,Total 9.1 mg/dL (8.5-10.1); Carbon Dioxide > 45.0 mmol/L (21.0-32.0); Chloride 86 mmol/L (98-107); Creatinine, Serum 0.72 mg/dL (0.70-1.30); EST Glomerular Filtration Rate 122 mL/min (>60); Est Glom Filt Rate - Afr Amer 147 mL/min (>60); Estimated Creatinine Clearance 128.73 ml/min; Globulin 3.7 g/dL (2.2-4.2); Glucose 144 mg/dL (74-106); Magnesium 2.3 mg/dL (1.6-2.6); Phosphorus 2.7 mg/dL (2.5-4.9); Potassium 4.3 mmol/L (3.5-5.1); Protein, Total 6.7 g/dL (6.4-8.2); Sodium Level 135 mmol/L (136-145)
[2023-06-12] MEDS: Methylprednisolone Sod Succ 40 MG/ML VIAL IV ×2 (05:42→21:44)
[2023-06-12 06:18] LABS: VBG TCO2 > 50 mmol/L (23-33)
--- NOTE | 2023-06-12 06:58 | PCM.PN.INT ---
Assessment & Plan Assessment/Plan (1) Acute respiratory failure with hypoxia and hypercapnia: (2) COPD exacerbation: (3) LAYLA (obstructive sleep apnea): (4) Severe persistent asthma: QUALIFIERS: Asthma complication type: uncomplicated Qualified Code(s): J45.50 - Severe persistent asthma, uncomplicated PLAN: Plan RECOMMENDATIONS: 1. Continue BiPAP with sleep 2. Wean steroids. Continue bronchodilators. Possibly stop antibiotics after 48 hours culture negative 3. Wean oxygen to keep saturations between 90 and 94% 4. Continue diuretics 5. Okay to leave the intensive care unit IMPRESSIONS: 1. Acute on chronic combined respiratory failure Unclear etiology at this time. Patient initially had hypoxia and ultimately presented with CO2 retention. This may be secondary to empiric increase in supplemental oxygen. We will challenge with diuretic therapy. Patient appears to be responding well to BiPAP at this time. Okay to continue with bronchodilators. We will wean steroids. Antibiotics can likely be discontinued in 24 hours if culture negative. Leukocytosis likely secondary to increased steroids. Low clinical suspicion for infectious etiology. Okay to leave the intensive care unit from my perspective 2. Severe pulmonary hypertension/LAYLA Unfortunately, given patient's body habitus, pulmonary artery pressures cannot be easily estimated. Patient is typically on 18/12 cmH2O with 4 L bleed to help with sleep. Patient can likely resume the settings. We will attempt diuretic therapy to help with any cor pulmonale. BNP was not significantly elevated. Compliance report is not suggestive of the need for repeat sleep study. However, patient may be a NIV candidate given chronic CO2 retention and repeated hospitalizations. 3. Recent foot fracture/morbid obesity/seasonal allergies/hypertension Complicates care, management, recovery and prognosis. Patient does receive steroids frequently and likely has an element of osteopenia. Blood pressures appear to be adequate at this time. Subjective Subjective Patient did well overnight. Patient was able to come off of BiPAP in the afternoon and slept with it overnight. Mentation is at baseline at this time. Patient is not reporting any chest pain, nausea or vomiting. Patient placed himself on BiPAP this morning to rest. Objective Data Objective Data Vital Signs: Vital Signs Temp Pulse Resp BP Pulse Ox O2 Del Method O2 Flow Rate 36.5 C L 70 19 H 142/91 H 97 Bi-pap 6 06/12/23 06:00 06/12/23 06:00 06/12/23 06:00 06/12/23 06:00 06/12/23 06:00 06/12/23 06:00 06/12/23 05:00 FiO2 35 06/12/23 06:00 Oxygen Flow Rate (L/min) 6 Oxygen Delivery Method Bi-pap Weight: 147 kg Body Mass Index (BMI) 43.9 Intake & Output: Intake and Output for Last 24 Hours 06/10/23 06/11/23 06/12/23 23:59 23:59 23:59 Intake Total 360 / 600 680 / 680 Output Total 1175 / 1175 700 / 700 Balance -815 / -575 - Lab / Micro Data Attestation: I reviewed the patient's lab results. 06/12/23 04:00 06/12/23 04:00 Labs: Laboratory Results - last 24 hr 06/12/23 04:00: WBC 14.6 H, RBC 4.19 L, Hgb 13.3, Hct 43.9, MCV 104.8 H, MCH 31.7, MCHC 30.3 L, RDW Std Deviation 47.2 H, RDW Coeff of Valerie 12.2, Plt Count 185, MPV 10.9, Immature Gran % (Auto) 0.500, Neut % (Auto) 89.2 H, Lymph % (Auto) 7.3 L, [place] % (Auto) 2.9, Eos % (Auto) 0.0, Baso % (Auto) 0.1, Absolute Neuts (auto) 13.0 H, Absolute Lymphs (auto) 1.07, Nucleated RBC % 0, Sodium 135 L, Potassium 4.3, Chloride 86 L, Carbon Dioxide > 45.0 H*, Anion Gap TNP, BUN 23 H, Creatinine 0.72, Estim Creat Clear Calc 128.73, Est GFR (MDRD) Af Amer 147, Est GFR (MDRD) Non-Af 122, BUN/Creatinine Ratio 32.2 H, Glucose 144 H, Calcium 9.1, Phosphorus 2.7, Magnesium 2.3, Total Bilirubin 0.30, AST 21, ALT 30, Alkaline Phosphatase 87, Total Protein 6.7, Albumin 3.0 L, Globulin 3.7, Albumin/Globulin Ratio 0.8 L Micro: Microbiology 06/11/23 12:05 Sputum, Expectorated/Coughed Gram Stain - Final 06/10/23 16:05 Mucosa - Nose Respiratory Panel (PCR) - Final 06/10/23 15:43 Nasal Secretion SARS-CoV-2 Antigen (Rapid) - Final ABG Data ABG results: ABG 06/10/23 13:01 VBG Total CO2 > 50 H Physical Exam Const alert, oriented x3 and no apparent distress Constitutional Narrative: Appears back to baseline General Appearance: cooperative and well developed; Negative for ill appearing HEENT normocephalic and head/scalp atraumatic Eyes PERRL, EOMs intact bilaterally and conjunctivae normal Eyes Narrative: Scleral injection noted Neck supple General: trachea midline Chest Chest Narrative: Increased AP diameter Resp Resp Narrative: Globally diminished air movement throughout all lung ring. Effort and Inspection: Negative for actively coughing Cardio regular rate, regular rhythm, no murmurs, no rub and no gallops GI normal to inspection, nondistended, normoactive bowel sounds Extremity General Extremity: edema; Negative for clubbing Skin General Skin Exam: venous stasis Wound Narrative: Erythema noted of the left lower extremity Neuro CN's II-XII intact bilaterally, moves all extremities and no focal motor deficits Psych cooperative and affect normal Charges/Coding Visit Charges Inpatient E&M: 98054 Subs Hosp L3
[2023-06-12] MEDS: Ipratropium/Albuterol Sulfate 3 ML AMPUL.NEB INHALATION ×5 (07:04→22:43)
[2023-06-12] MEDS: Sertraline 100 MG Tablet PO (08:33)
[2023-06-12] MEDS: Cyanocobalamin 500 MCG Tablet PO (08:33)
[2023-06-12] MEDS: buPROPion (SR) 150 MG Tablet.SA PO ×2 (08:33→21:43)
[2023-06-12] MEDS: Metoprolol Tartrate 50 MG Tablet PO ×2 (08:33→21:43)
[2023-06-12] MEDS: Furosemide 40 MG Tablet PO ×2 (08:33→17:25)
[2023-06-12] MEDS: guaiFENesin/D-Methorphan TAB.SR.12H 1 TABLET PO ×2 (08:33→21:43)
[2023-06-12] MEDS: Multivitamins,Ther W-Minerals Tablet 1 TABLET PO (08:33)
[2023-06-12] MEDS: Spironolactone 25 MG Tablet PO ×2 (08:33→21:43)
[2023-06-12] MEDS: APIXABAN 5 MG TABLET PO (08:34)
[2023-06-12] MEDS: Losartan Potassium 25 MG Tablet PO (08:34)
[2023-06-12] MEDS: Loratadine 10 MG Tablet PO (08:35)
--- NOTE | 2023-06-12 11:49 | PN.HOSP_ITS ---
Reason for Visit Reason for Visit: Shortness of breath Subjective Subjective Patient has been able to come off BiPAP to 6 L nasal cannula with stable oxygen saturations. Plan for today is to wean oxygen to his baseline of 4 L if able. Patient has no complaints at this time and feels that he is close to his baseline. Plan is for discharge home with home health and patient has already chosen home health services. This is currently being worked on by case management in preparation for discharge. I did discuss with the patient that he may be able to go home tomorrow depending on how he does throughout today and his oxygen requirements over the next 24 hours. Objective Data Objective Data Vital Signs: Vital Signs Temp Pulse Resp BP Pulse Ox O2 Del Method O2 Flow Rate 97 F L 62 18 134/94 H 93 Nasal Cannula 6 06/12/23 10:00 06/12/23 10:00 06/12/23 10:00 06/12/23 10:00 06/12/23 10:00 06/12/23 10:00 06/12/23 10:00 FiO2 35 06/12/23 10:00 Oxygen Flow Rate (L/min) 6 Oxygen Delivery Method Nasal Cannula Weight: 147 kg Body Mass Index (BMI) 43.9 Intake & Output: Intake and Output for Last 24 Hours 06/10/23 06/11/23 06/12/23 23:59 23:59 23:59 Intake Total 360 / 600 920 / 920 Output Total 1175 / 1175 1500 / 1500 Balance -815 / -575 -580 / -580 Lab / Micro Data 06/12/23 04:00 06/12/23 04:00 Labs: Laboratory Results - last 24 hr 06/12/23 04:00: WBC 14.6 H, RBC 4.19 L, Hgb 13.3, Hct 43.9, MCV 104.8 H, MCH 31.7, MCHC 30.3 L, RDW Std Deviation 47.2 H, RDW Coeff of Valerie 12.2, Plt Count 185, MPV 10.9, Immature Gran % (Auto) 0.500, Neut % (Auto) 89.2 H, Lymph % (Auto) 7.3 L, [place] % (Auto) 2.9, Eos % (Auto) 0.0, Baso % (Auto) 0.1, Absolute Neuts (auto) 13.0 H, Absolute Lymphs (auto) 1.07, Nucleated RBC % 0, Sodium 135 L, Potassium 4.3, Chloride 86 L, Carbon Dioxide > 45.0 H*, Anion Gap TNP, BUN 23 H, Creatinine 0.72, Estim Creat Clear Calc 128.73, Est GFR (MDRD) Af Amer 147, Est GFR (MDRD) Non-Af 122, BUN/Creatinine Ratio 32.2 H, Glucose 144 H, Calcium 9.1, Phosphorus 2.7, Magnesium 2.3, Total Bilirubin 0.30, AST 21, ALT 30, Alkaline Phosphatase 87, Total Protein 6.7, Albumin 3.0 L, Globulin 3.7, Albumin/Globulin Ratio 0.8 L Micro: Microbiology 06/11/23 12:05 Sputum, Expectorated/Coughed Gram Stain - Final 06/11/23 12:05 Sputum, Expectorated/Coughed Respiratory Culture - Preliminary Appears to be normal respiratory seng. Further studies to follow. 06/10/23 16:05 Mucosa - Nose Respiratory Panel (PCR) - Final 06/10/23 15:43 Nasal Secretion SARS-CoV-2 Antigen (Rapid) - Final ABG Data ABG results: ABG 06/10/23 13:01 VBG Total CO2 > 50 H Physical Exam Const oriented x3, no apparent distress and well nourished; Negative for alert, average body habitus or healthy appearing Constitutional Narrative: Morbidly obese, middle-aged, white male, sitting up on the edge of the bed on 6 L supplemental nasal cannula, playing solitaire on his phone, appears comfortable and nontoxic HEENT head/scalp atraumatic and moist oral mucous membranes HEENT Narrative: Mallampati 3-4, no thrush Head and Scalp: normocephalic Resp normal respiratory effort, no retractions, no use of accessory muscles and clear to auscultation bilaterally Resp Narrative: Diffusely diminished but clear Auscultation: Negative for rales, rhonchi or wheezes Cardio regular rate, regular rhythm, S1 normal heart sound, S2 normal heart sound, no murmurs, no rub, no gallops and no clicks GI normal to inspection, nondistended, normoactive bowel sounds, soft to palpation, non-tender and non-distended Extremity Extremity Narrative: Trace bilateral lower extremity pitting edema, no cyanosis or clubbing Neuro oriented x3, moves all extremities and no focal motor deficits Speech: speech normal Psych Psych Narrative: Affect is mildly flat but mood seems stable, patient does not appear to be all the interested in interacting Assessment & Plan Assessment/Plan (1) Leukocytosis: (2) COPD exacerbation: (3) Acute on chronic respiratory failure with hypoxia and hypercapnia: PLAN: Plan Acute hypoxia and hypercapnia on chronic hypoxic and hypercapnic respiratory failure secondary to acute exacerbation of COPD -Baseline PCO2 appears to be between 75 and 85 -Current oxygen requirements are 4 L of oxygen at rest -Currently requiring 6 L nasal cannula -COVID and flu are negative -Respiratory viral PCR is negative -Pneumo and Legionella antigens are negative -Continue steroids with Solu-Medrol 40 every 8 -Continue Lasix 40 mg p.o. twice daily--> anticipate transitioning back to his home torsemide dosing tomorrow which is 20 twice daily -Aggressive pulmonary toilet with DuoNebs and as needed albuterol -Incentive spirometry -Mucinex 1200 twice daily -Pep therapy with Acapella 10 times every 2 hours while awake -Continue BiPAP nocturnally -Pulmonary medicine consulted-appreciate input Leukocytosis -Doubt infectious -Resolved-suspect reactive and related to demargination from steroids Chronic metabolic alkalosis -Secondary to chronic hypercapnia -Suspect close to baseline Insulin resistance -Patient without diagnosis of diabetes -Blood sugar was 144 on presentation and 144 this morning -Hemoglobin A1c from January 01, 2023 was 5.7 -Likely mediated by frequent steroid use Asthma/COPD Gold stage 4 -Documented as end-stage by pulmonary medicine -Last PFTs in 2018 showed an FEV1 of 44% -Treatment as above for exacerbation -Restart inhalers at discharge -Patient is on Nucala as an outpatient once monthly -We will arrange for outpatient pulmonary follow-up prior to discharge History of bilateral pulmonary emboli -Diagnosed in October 2022 -Patient has been compliant with his Eliquis -Continue DOAC LAYLA/suspected OHS -Continue BiPAP 20/12 per home regimen with naps and nightly Chronic HFpEF-suspect right-sided failure -Continue Lasix 40 mg p.o. twice daily -Echocardiogram 01/30/2023 showed an EF of 65%, mildly dilated RV, mild left atrial enlargement with no evidence of diastolic dysfunction and unable to estimate right ventricular systolic pressures Hypertension -Continue metoprolol -Continue losartan -Continue Lasix 40 mg p.o. twice daily -Continue Aldactone Seasonal allergies -Continue home Singulair Tobacco abuse -Patient is down to 1 to 2 cigarettes weekly -Had stop smoking previously -Recommend smoking cessation -No need for nicotine replacement at this time Depression/anxiety -Continue home Wellbutrin -Continue home Zoloft DVT prophylaxis -Continue full anticoagulation with Eliquis CODE STATUS -Full code Charges/Coding Visit Charges Inpatient E&M: 15756 Subs Hosp L2
--- NOTE | 2023-06-12 13:56 | CPS ---
patient on Bipap
[2023-06-12] MEDS: Sodium Chloride 0.65% 1 SPRAY SPRAY.BTL 2 SPRAY NASAL (17:27)
[2023-06-12] MEDS: Montelukast 10 MG Tablet PO (21:42)
[2023-06-13] VITALS (9 sets, daily range): BP systolic 121–128; BP diastolic 62–91; PULSE 58–78; RESP 12–20; TEMP 36.6–37.1; O2SAT 87–96; BMI 44.4
[2023-06-13] MEDS: Ipratropium/Albuterol Sulfate 3 ML AMPUL.NEB INHALATION ×4 (03:13→15:05)
[2023-06-13 06:01] LABS: Absolute Lymphocyte Count 1.06 X10^3/uL (0.83-4.51); Absolute Neutrophil Count 11.2 X10^3/uL (2.0-7.7); Basophil# 0.01 X10^3/uL; Basophil% 0.1 % (0-1); Hematocrit 46.5 % (40-54); Hemoglobin 13.8 g/dL (13.0-16.5); Lymphocyte # 1.06 X10^3/ul (0.83-4.51); Lymphocyte % 8.1 % (19-41); Mean Corp Hgb Conc 29.7 g/dL (32-36); Mean Corpuscular Hgb 31.2 pg (27.0-32.0); Mean Corpuscular Volume 105.2 fL (80-94); Monocyte# 0.64 X10^3/uL; Monocyte% 4.9 % (0-10); NRBC Flagged by Analyzer 0 % (0-5); Neutrophil % 86.1 % (47-70); Platelet Count 194 K/mm3 (150-450); RBC Distribution Width CV 12.2 % (11.6-14.6); RBC Distribution Width SD 47.7 fl (35.1-43.9); Red Blood Count 4.42 M/mm3 (4.6-6.2)
[2023-06-13 06:45] LABS: BUN 27 mg/dL (7-18); BUN/Creat Ratio 37.6 RATIO (10-20); Calcium,Total 8.8 mg/dL (8.5-10.1); Carbon Dioxide > 45.0 mmol/L (21.0-32.0); Chloride 89 mmol/L (98-107); Creatinine, Serum 0.72 mg/dL (0.70-1.30); EST Glomerular Filtration Rate 121 mL/min (>60); Est Glom Filt Rate - Afr Amer 146 mL/min (>60); Estimated Creatinine Clearance 128.73 ml/min; Glucose 132 mg/dL (74-106); Potassium 4.1 mmol/L (3.5-5.1); Sodium Level 138 mmol/L (136-145)
[2023-06-13] MEDS: buPROPion (SR) 150 MG Tablet.SA PO (08:14)
[2023-06-13] MEDS: Sertraline 100 MG Tablet PO (08:14)
[2023-06-13] MEDS: Methylprednisolone Sod Succ 40 MG/ML VIAL IV (08:14)
[2023-06-13] MEDS: guaiFENesin/D-Methorphan TAB.SR.12H 1 TABLET PO (08:14)
[2023-06-13] MEDS: Metoprolol Tartrate 50 MG Tablet PO (08:14)
[2023-06-13] MEDS: Multivitamins,Ther W-Minerals Tablet 1 TABLET PO (08:15)
[2023-06-13] MEDS: Loratadine 10 MG Tablet PO (08:15)
[2023-06-13] MEDS: APIXABAN 5 MG TABLET PO (08:15)
[2023-06-13] MEDS: Losartan Potassium 25 MG Tablet PO (08:15)
[2023-06-13] MEDS: Cyanocobalamin 500 MCG Tablet PO (08:15)
[2023-06-13] MEDS: Spironolactone 25 MG Tablet PO (08:15)
[2023-06-13] MEDS: Furosemide 40 MG Tablet PO (08:15)
--- NOTE | 2023-06-13 08:21 | PN.CC_ITS ---
Assessment & Plan Assessment/Plan (1) Acute respiratory failure with hypoxia and hypercapnia: (2) COPD exacerbation: (3) LAYLA (obstructive sleep apnea): (4) Severe persistent asthma: QUALIFIERS: Asthma complication type: uncomplicated Qualified Code(s): J45.50 - Severe persistent asthma, uncomplicated PLAN: Plan RECOMMENDATIONS: 1. Continue BiPAP with sleep 2. Transition to p.o. steroids and wean over 12 to 14 days. Continue bronchodilators. 3. Wean oxygen to keep saturations between 90 and 94% 4. Okay to continue with baseline diuretics 5. Potential discharge IMPRESSIONS: 1. Acute on chronic combined respiratory failure Unclear etiology at this time. Patient initially had hypoxia and ult imately presented with CO2 retention. This may be secondary to empiric increase in supplemental oxygen. We will challenge with diuretic therapy. Patient appears to be responding well to BiPAP at this time. Okay to continue with bronchodilators. We will wean steroids. Antibiotics can likely be discontinued in 24 hours if culture negative. Leukocytosis likely secondary to increased steroids. Low clinical suspicion for infectious etiology. We will transition from Mucinex DM to Mucinex to help with secretions 2. Severe pulmonary hypertension/LAYLA Unfortunately, given patient's body habitus, pulmonary artery pressures cannot be easily estimated. Patient is typically on 18/12 cmH2O with 4 L bleed to help with sleep. Patient can likely resume the settings. We will attempt diuretic therapy to help with any cor pulmonale. BNP was not significantly elevated. Compliance report is not suggestive of the need for repeat sleep study. However, patient may be a NIV candidate given chronic CO2 retention and repeated hospitalizations. 3. Recent foot fracture/morbid obesity/seasonal allergies/hypertension Complicates care, management, recovery and prognosis. Patient does receive steroids frequently and likely has an element of osteopenia. Blood pressures appear to be adequate at this time. Subjective Subjective Patient did well overnight. No acute issues were reported. Patient does state that he has had some issues with mobilizing his secretions, but has not had any fever, chills or other body aches. Objective Data Objective Data Vital Signs: Vital Signs Temp Pulse Resp BP Pulse Ox O2 Del Method O2 Flow Rate 36.6 C 68 16 128/91 H 87 Nasal Cannula 4 06/13/23 08:08 06/13/23 08:08 06/13/23 08:08 06/13/23 08:08 06/13/23 08:10 06/13/23 08:08 06/13/23 08:10 FiO2 35 06/13/23 04:00 Oxygen Flow Rate (L/min) [At 4 REST with Oxygen] Oxygen Flow Rate (L/min) 4 Oxygen Delivery Method Nasal Cannula Weight: 148.7 kg Body Mass Index (BMI) 44.4 Intake & Output: Intake and Output for Last 24 Hours 06/11/23 06/12/23 06/13/23 23:59 23:59 23:59 Intake Total 360 / 600 1100 / 1100 Output Total 1175 / 1175 2019 800 / 800 Balance -815 / -575 -920 / -920 -800 / -800 Lab / Micro Data Attestation: I reviewed the patient's lab results. 06/13/23 05:15 06/13/23 05:15 Labs: Laboratory Results - last 24 hr 06/13/23 05:15: WBC 13.0 H, RBC 4.42 L, Hgb 13.8, Hct 46.5, MCV 105.2 H, MCH 31.2, MCHC 29.7 L, RDW Std Deviation 47.7 H, RDW Coeff of Valerie 12.2, Plt Count 194, MPV 11.0, Immature Gran % (Auto) 0.800, Neut % (Auto) 86.1 H, Lymph % (Auto) 8.1 L, [place] % (Auto) 4.9, Eos % (Auto) 0.0, Baso % (Auto) 0.1, Absolute Neuts (auto) 11.2 H, Absolute Lymphs (auto) 1.06, Nucleated RBC % 0, Sodium 138, Potassium 4.1, Chloride 89 L, Carbon Dioxide > 45.0 H*, Anion Gap TNP, BUN 27 H, Creatinine 0.72, Estim Creat Clear Calc 128.73, Est GFR (MDRD) Af Amer 146, Est GFR (MDRD) Non-Af 121, BUN/Creatinine Ratio 37.6 H, Glucose 132 H, Calcium 8.8 Micro: Microbiology 06/11/23 12:05 Sputum, Expectorated/Coughed Gram Stain - Final 06/11/23 12:05 Sputum, Expectorated/Coughed Respiratory Culture - Preliminary Appears to be normal respiratory seng. Further studies to follow. 06/10/23 16:05 Mucosa - Nose Respiratory Panel (PCR) - Final 06/10/23 15:43 Nasal Secretion SARS-CoV-2 Antigen (Rapid) - Final Physical Exam Const alert, oriented x3 and no apparent distress Constitutional Narrative: Appears back to baseline from a mentation standpoint General Appearance: cooperative and well developed; Negative for ill appearing HEENT normocephalic and head/scalp atraumatic Eyes PERRL, EOMs intact bilaterally and conjunctivae normal Eyes Narrative: Scleral injection noted Neck supple General: trachea midline Chest Chest Narrative: Increased AP diameter Resp Resp Narrative: Globally diminished air movement throughout all lung ring. Effort and Inspection: Negative for actively coughing Auscultation: wheezes expiratory wheezes (Improves with cough) Cardio regular rate, regular rhythm, no murmurs, no rub and no gallops GI normal to inspection, nondistended, normoactive bowel sounds Extremity General Extremity: edema; Negative for clubbing Skin General Skin Exam: venous stasis Wound Narrative: Erythema noted of the left lower extremity Neuro CN's II-XII intact bilaterally, moves all extremities and no focal motor deficits Psych cooperative and affect normal Psych Narrative: Restless when awakened Charges/Coding Visit Charges Inpatient E&M: 54127 Subs Hosp L2
[2023-06-13] MEDS: predniSONE 20 MG Tablet 40 MG PO (10:40)
--- NOTE | 2023-06-13 11:31 | PCM.DC.SUM ---
Providers Date of Admission: 06/10/23 Date of Discharge: 06/13/23 Primary Care Physician: CLAYTON Monroy Consultations 06/10/23 15:41 Consult: Tile Installer / Pulmonary Medicine Routine Consulting Provider: Pulmonary Medicine marybel Rodrigues Reason for Consult: acute on chr combined resp failure, COPD exa EMERGENT Consult: No MD Notified: Yes Date Notified: 06/10/23 Time Notified: 15:26 Method of Notification: Text 06/11/23 05:41 Consult: Tile Installer / Pulmonary Medicine Routine Consulting Provider: Reece Fernandes Reason for Consult: Resp failure, COPD exacerbation EMERGENT Consult: No MD Notified: No Date Notified: 06/11/23 Time Notified: 04:49 Reason For Visit: COPD EXA, ACUT ON CHR RESP FAILURE Diagnosis Discharge Diagnosis (1) Acute respiratory failure with hypoxia and hypercapnia: Status: Deleted Code(s): J96.01 - Acute respiratory failure with hypoxia; J96.02 - Acute respiratory failure with hypercapnia (2) COPD exacerbation: Status: Chronic Code(s): J44.1 - Chronic obstructive pulmonary disease with (acute) exacerbation (3) LAYLA (obstructive sleep apnea): Status: Acute Code(s): G47.33 - Obstructive sleep apnea (adult) (pediatric) (4) Severe persistent asthma: Status: Chronic Code(s): J45.50 - Severe persistent asthma, uncomplicated Qualifiers: Asthma complication type: uncomplicated Qualified Code(s): J45.50 - Severe persistent asthma, uncomplicated Medications at Discharge Home Medications spironolactone 25 mg tablet 25 mg PO BID bp 12/02/15 bupropion HCl 150 mg 24 hr tablet, extended release (Wellbutrin XL) 150 mg PO BID mental health 10/11/21 acetaminophen 500 mg tablet 1,000 mg PO Q6H PRN Pain 11/04/21 cyanocobalamin (vitamin B-12) 500 mcg tablet 500 mcg PO DAILY SUPPLEMENT 11/08/21 sertraline 100 mg tablet 100 mg PO DAILY mental health 01/23/22 montelukast 10 mg tablet (Singulair) 10 mg PO QPM COPD #30 tabs 06/30/22 mepolizumab 100 mg/mL subcutaneous auto-injector (Nucala) 300 mg subcut Q4W asthma 11/05/22 guaifenesin 1,200 mg tablet, extended release 12 hr 1,200 mg PO Q12H PRN Cough #14 tabs 11/08/22 losartan 25 mg tablet 25 mg PO DAILY #30 tabs 11/08/22 sennosides 8.6 mg-docusate sodium 50 mg tablet (Stool Softener-Stimulant Laxative) 2 tab PO BID PRN PRN Constipation #0 tabs 11/08/22 torsemide 20 mg tablet 20 mg PO BID #60 tabs 11/08/22 furosemide 40 mg tablet 40 mg PO DAILY FLUID 01/01/23 qavjeyounlge-gxi-lpolo acid-vit K-lycop 400 mcg-20 mcg-370 mcg tablet (Men's 50 Plus Multivitamin) 1 tab PO DAILY SUPPLEMENT 01/01/23 ipratropium 0.5 mg-albuterol 3 mg (2.5 mg base)/3 mL nebulization soln 3 ml inhalation Q4H PRN Wheezing #360 mL 03/13/23 prednisone 10 mg tablet 10 mg PO DAILY #40 tabs 03/13/23 oxycodone 5 mg tablet 5 mg PO TID PRN Shortness Of Breath 05/09/23 guaifenesin 600 mg tablet, extended release 12 hr (Mucus Relief ER) 600 mg PO BID #20 tabs 05/10/23 tramadol 50 mg tablet 50 mg PO Q4H PRN PRN Pain 3 days #20 tabs 05/14/23 albuterol sulfate 2.5 mg/3 mL (0.083 %) solution for nebulization 2.5 mg (3 mL) inhalation Q4H PRN shortness of breath or wheezing #360 mL 05/23/23 albuterol sulfate 90 mcg/actuation aerosol inhaler (Ventolin HFA) 2 puff inhalation Q4H PRN shortness of breath or wheezing #18 grams 05/23/23 budesonide-formoterol HFA 160 mcg-4.5 mcg/actuation aerosol inhaler (Symbicort) 2 puff inhalation BID BREATHING #10.2 grams 05/23/23 cetirizine 10 mg tablet 10 mg PO DAILY #90 tabs 05/30/23 apixaban 5 mg tablet (Eliquis) 5 mg PO DAILY 06/10/23 metoprolol tartrate 50 mg tablet 50 mg PO BID bp 06/10/23 prednisone 10 mg tablet 10 mg PO DAILY #40 tabs 06/13/23 Hospital Course Operations None Procedures EKG and - (Chest x-ray) Summary of Care Provided Minutes Spent on Discharge: 38 Hospital Course: Mr. Ku is a 52-year-old white male who presented to the emergency department at [facility] on 06/10/2023 with shortness of breath and chest tightness that had been ongoing for approximately 3 days. He has COPD and is on 4 L of oxygen at home and wears BiPAP 20 over 12 at night. Patient reported he felt okay but could not breathe with chest tightness. He denied any change in sputum or cough. His oxygen saturations dropped to 70% on his baseline oxygen and he was somnolent. He has been intubated previously twice and he has stage IV severe COPD at baseline with an FEV1 of 44% which was from PFTs performed in 2019. He denied any fever,chills, or chest pressure of anginal quality. Vital signs on presentation demonstrated temperature of 98.4, respiratory 22, heart rate 84, blood pressure is 140/91 and oxygen saturations were initially 94% on his baseline 4 L however he did desaturate into the 70s and was placed on his home BiPAP. CBC on presentation showed a white count of 11.6 with a mild left shift that 72.6% neutrophilia and was otherwise unremarkable. Chemistry panel was consistent with chronic hypercapnia having a bicarb of greater than 45 but was otherwise unremarkable. Opponent was normal at 13 and his BNP was 62.9. Chest x-ray was unremarkable for any acute findings but did show mild dilation of the left pulmonary artery consistent with pulmonary hypertension. He was initially admitted to the medical floor with acute on chronic hypercapnic and hypoxic respiratory failure due to a COPD exacerbation and was placed on scheduled DuoNebs, as needed albuterol, IV Solu-Medrol, and doxycycline. COVID testing was unremarkable. Respiratory viral panel was unremarkable. He required transfer to the ICU for worsening respiratory status and with the addition of aggressive diuresis was able to become more optimized from a respiratory standpoint. He was back on 6 L of oxygen at rest on 06/12/2023 and we were able to transfer him out of the ICU. We were able to wean his oxygen throughout the day on the and reassess his oxygenation on the . At rest he was requiring 3 L and required 6 L with exertion. This is his baseline prescription. He does have an upcoming appointment with pulmonary medicine who did follow him while he was hospitalized. We have strongly encouraged that he keep this appointment. We have also strongly encouraged his monitoring of oral fluid intake at home and restrict to 2 L or less daily as there is likely component of volume overload in conjunction with his respiratory distress on presentation. Pulmonary medicine does plan to evaluate him for nocturnal NIV at home after discharge with his chronic CO2 retention and repeated hospitalizations for respiratory failure. He does have a BiPAP at night and is compliant with this per compliance reports. He will be discharged with prednisone taper over the next 16 days. We have asked him to also follow-up with his primary care physician within the next 2 weeks. Patient was discharged home with home health in stable condition on 06/13/2023. Discharge diagnoses: Acute on chronic hypoxic and hypercapnic respiratory failure Acute exacerbation of COPD Leukocytosis Chronic metabolic alkalosis consistent secondary to CO2 retention Insulin resistance Asthma COPD Gold stage IV History of bilateral pulmonary emboli LAYLA OHS Chronic HFpEF-compensated Hypertension Seasonal allergies Tobacco abuse Depression Anxiety Physical Exam Const oriented x3, no apparent distress and well nourished; Negative for alert, average body habitus or healthy appearing Constitutional Narrative: Morbidly obese, middle-aged, white male, lying in bed sleeping but awakens easily and is appropriate, was on BiPAP while sleeping, appears comfortable and nontoxic General Appearance: cooperative, comfortable, well kempt and well developed Orientation / Consciousness: awake, oriented to person, oriented to place and oriented to time Exam Limitations: no limitations Nutritional Appearance: morbidly obese HEENT normocephalic, head/scalp atraumatic and moist oral mucous membranes Eyes PERRL, EOMs intact bilaterally and conjunctivae normal Eyes Narrative: No scleral icterus Neck no lymphadenopathy and supple Neck Narrative: Trachea midline, no thyroid enlargement, neck is short and thick Resp normal respiratory effort, no retractions, no use of accessory muscles and clear to auscultation bilaterally Resp Narrative: Scattered end expiratory wheezes with improved air movement Auscultation: wheezes; Negative for rales or rhonchi Cardio regular rate, regular rhythm, S1 normal heart sound, S2 normal heart sound, no murmurs, no rub, no gallops and no clicks GI normal to inspection, nondistended, normoactive bowel sounds, soft to palpation, non-tender and non-distended Extremity no clubbing, cyanosis or edema Skin no rashes or lesions noted, no wounds, skin turgor normal and no jaundice Neuro oriented x3, CN's II-XII intact bilaterally, moves all extremities and no focal motor deficits Speech: speech normal Psych affect normal Psych Narrative: Appropriately interactive once awake Weight / BMI Weight Weight: 148.7 kg Body Mass Index (BMI) 44.4 ABG / Lab / Microbiology Data 06/13/23 05:15 06/13/23 05:15 Laboratory: Laboratory Results - last 24 hr 06/13/23 05:15: WBC 13.0 H, RBC 4.42 L, Hgb 13.8, Hct 46.5, MCV 105.2 H, MCH 31.2, MCHC 29.7 L, RDW Std Deviation 47.7 H, RDW Coeff of Valerie 12.2, Plt Count 194, MPV 11.0, Immature Gran % (Auto) 0.800, Neut % (Auto) 86.1 H, Lymph % (Auto) 8.1 L, [place] % (Auto) 4.9, Eos % (Auto) 0.0, Baso % (Auto) 0.1, Absolute Neuts (auto) 11.2 H, Absolute Lymphs (auto) 1.06, Nucleated RBC % 0, Sodium 138, Potassium 4.1, Chloride 89 L, Carbon Dioxide > 45.0 H*, Anion Gap TNP, BUN 27 H, Creatinine 0.72, Estim Creat Clear Calc 128.73, Est GFR (MDRD) Af Amer 146, Est GFR (MDRD) Non-Af 121, BUN/Creatinine Ratio 37.6 H, Glucose 132 H, Calcium 8.8 Microbiology: Microbiology 06/11/23 12:05 Sputum, Expectorated/Coughed Gram Stain - Final 06/11/23 12:05 Sputum, Expectorated/Coughed Respiratory Culture - Preliminary Appears to be normal respiratory seng. Further studies to follow. 06/10/23 16:05 Mucosa - Nose Respiratory Panel (PCR) - Final 06/10/23 15:43 Nasal Secretion SARS-CoV-2 Antigen (Rapid) - Final D/C Instructions Discharge Diet: Low fat / Low cholesterol (Monitor fluid intake and do not consume more than 2 L daily) Discharge Activity: Return to Normal Activity Meaningful Use Info Meaningful Use Diagnoses (Choose all that apply): None applicable Discharge Plan Admission Admit Date/Time: 06/10/23 14:39 Primary Reason for Your Visit: Shortness of Breath Attending Provider: Mely Lyons Primary Care Provider: Chitra Scott Consulting Providers: Martin Goetz; Tay Benavides; Reece Fernandes; Eloy Jaimes; Samson Gaines; Alesia Morales PICK P[employer]ING MACHINE TENDER Instructions Additional Instructions / Restrictions: 1. Please closely watch fluid intake and restrict to less than 2 L of fluid daily orally Discharge Orders/Prescriptions Prescriptions: New prednisone 10 mg tablet 10 mg PO DAILY Qty: 40 0RF Rx Instructions: 4 tablets x 4 days, 3 tablets x 4 days, 2 tablets x 4 days, 1 tablet x 4 days Continued sertraline 100 mg tablet 100 mg PO DAILY spironolactone 25 MG tablet 25 mg PO BID Patient Comments: WATER PILL bupropion HCl [Wellbutrin XL] 150 mg Tablet Extended Release 24 Hr 150 mg PO BID acetaminophen 500 mg Tablet 1,000 mg PO Q6H PRN (Reason: Pain) cyanocobalamin (vitamin B-12) 500 MCG tablet 500 mcg PO DAILY Nucala 100 mg/mL auto-injector 300 mg subcut Q4W Rx Instructions: administer as three 100 mg injections at separate sites sennosides-docusate sodium [Stool Softener-Stimulant Laxat] 8.6-50 mg Tablet 2 tab PO BID PRN PRN (Reason: Constipation) Qty: 0 0RF torsemide 20 mg tablet 20 mg PO BID Qty: 60 2RF guaifenesin 1,200 MG tablet extended release 12hr 1,200 mg PO Q12H PRN (Reason: Cough) Qty: 14 0RF losartan 25 mg tablet 25 mg PO DAILY Qty: 30 1RF furosemide 40 mg tablet 40 mg PO DAILY Patient Comments: TAKE 1 TABLET BY MOUTH EVERY DAY NEEDED Men's 50 Plus Multivitamin 400-20-370 mcg Tablet 1 tab PO DAILY oxycodone 5 mg tablet 5 mg PO TID PRN (Reason: Shortness Of Breath) Patient Comments: PLEASE SEE ATTACHED FOR DETAILED DIRECTIONS guaifenesin [Mucus Relief ER] 600 mg Tablet Extended Release 12hr 600 mg PO BID Qty: 20 0RF tramadol 50 mg tablet 50 mg PO Q4H PRN PRN (Reason: Pain) 3 Days Qty: 20 0RF Eliquis 5 mg tablet 5 mg PO DAILY Rx Instructions: 10 mg (2 TAB) twice daily for 7 days and then 5 mg (1 TAB) twice daily to continue. DVT/PE dose metoprolol tartrate 50 mg tablet 50 mg PO BID Patient Comments: TAKE 1 TABLET BY MOUTH TWICE A DAY montelukast [Singulair] 10 mg tablet 10 mg PO QPM Qty: 30 5RF ipratropium-albuterol 0.5 mg-3 mg(2.5 mg base)/3 mL solution for nebulization 3 ml INHALATION Q4H PRN (Reason: Wheezing) Qty: 360 6RF prednisone 10 mg tablet 10 mg PO DAILY Qty: 40 0RF Rx Instructions: 4 tablets x 4 days, 3 tablets x 4 days, 2 tablets x 4 days, 1 tablet x 4 days budesonide-formoterol [Symbicort] 160-4.5 mcg/actuation HFA aerosol inhaler 2 puff INHALATION BID Qty: 10.2 6RF albuterol sulfate 2.5 mg /3 mL (0.083 %) solution for nebulization 2.5 mg INHALATION Q4H PRN (Reason: shortness of breath or wheezing) Qty: 360 6RF albuterol sulfate [Ventolin HFA] 90 mcg/actuation HFA aerosol inhaler 2 puff INHALATION Q4H PRN (Reason: shortness of breath or wheezing) Qty: 18 6RF cetirizine 10 mg tablet 10 mg PO DAILY Qty: 90 3RF Discontinued metoprolol succinate 50 MG tablet extended release 24 hr 50 mg PO BID prednisone 20 mg Tablet 40 mg PO BREAKFAST Qty: 10 0RF levofloxacin 750 mg tablet 750 mg PO DAILY Qty: 5 0RF hydrocodone-acetaminophen 5-325 mg tablet 1 tab PO Q6H PRN PRN (Reason: Pain) 3 Days Qty: 12 0RF Referrals / Follow Up: Tay Benavides MD [Med Staff - Active Staff] - See Referral Note (Keep upcoming appointment in June) Chitra Scott NP-C [Primary Care Provider] - Within 2 Weeks Disposition Disposition (needs filled in before D/C Order can be placed): Home Health Service Charges/Coding Visit Charges Inpatient E&M: 72687 Disch Hosp >30min
== END 2023-06-13 15:42 | disposition home or self-care (01) | DRG 189 ==
LOC: ED 14:46 → PCU 15:00 → ICU 06-11 05:34 → PCU 06-13 10:40
PROVIDERS: Physician Assistant; Admitting Provider Internal Medicine; Emergency Provider Emergency Medicine; PCP Nurse Practitioner Family; Visit Provider Internal Medicine
DX: J96.21 Acute and chronic respiratory failure with hypoxia (principal); E66.2 Morbid (severe) obesity with alveolar hypoventilation; E87.3 Alkalosis; J44.1 Chronic obstructive pulmonary disease with (acute) exacerbation; I50.32 Chronic diastolic (congestive) heart failure; Z68.41 Body mass index [BMI] 40.0-44.9, adult; I27.21 Secondary pulmonary arterial hypertension; J96.22 Acute and chronic respiratory failure with hypercapnia; I11.0 Hypertensive heart disease with heart failure; J45.50 Severe persistent asthma, uncomplicated; F32.A Depression, unspecified; F41.9 Anxiety disorder, unspecified; E88.81 Metabolic syndrome and other insulin resistance; J30.2 Other seasonal allergic rhinitis; F17.210 Nicotine dependence, cigarettes, uncomplicated; Z99.81 Dependence on supplemental oxygen; Z79.01 Long term (current) use of anticoagulants; Z79.899 Other long term (current) drug therapy; Z86.711 Personal history of pulmonary embolism
CPT/HCPCS: 36415; 36600; 71046; 80048; 80053; 82803; 83735; 83880; 84100; 84484; 85025; 87070; 87205; 87633; 87811; 93005; 94002; 94003; 94640; 94660; 94668; 94762; 97110; 97161; 97166; 97535; 99285; A4216; J1940

== ENCOUNTER → 2023-07-19 | Outpatient (CLI) | payer MEDICARE, SELFPAY ==
[2023-07-19 10:44] LABS: ALB/GLOB Ratio 0.8 RATIO (0.9-2.4); AST(SGOT) 21 U/L (15-37); Alanine Aminotransfer ALT/SGPT 23 U/L (16-61); Albumin, Serum 3.1 g/dL (3.2-5.0); Alkaline Phosphatase 101 U/L (45-117); Anion Gap 3 (5-15); BUN 12 mg/dL (7-18); BUN/Creat Ratio 14.6 RATIO (10-20); Calcium,Total 8.9 mg/dL (8.5-10.1); Chloride 93 mmol/L (98-107); Cholesterol 178 mg/dL (200); Creatinine, Serum 0.82 mg/dL (0.70-1.30); EST Glomerular Filtration Rate 104 mL/min (>60); Est Glom Filt Rate - Afr Amer 126 mL/min (>60); Globulin 3.9 g/dL (2.2-4.2); Glucose 82 mg/dL (74-106); High Density Lipoprotein 48 mg/dL; Potassium 3.4 mmol/L (3.5-5.1); Sodium Level 136 mmol/L (136-145); Triglycerides 112 mg/dL; Very Low Density Lipoprotein 22 mg/dL (5-40)
== END | disposition home or self-care (01) ==
LOC: LABSPEC 10:11
PROVIDERS: PCP Nurse Practitioner Family; Referring Provider Nurse Practitioner Family; Visit Provider Nurse Practitioner Family
DX: J44.1 Chronic obstructive pulmonary disease with (acute) exacerbation (principal); J45.50 Severe persistent asthma, uncomplicated; E87.22 Chronic metabolic acidosis; E78.2 Mixed hyperlipidemia
CPT/HCPCS: 80053; 80061

== ENCOUNTER 2023-08-05 21:05 | Inpatient (IN) | payer MEDICARE, SELFPAY ==
[2023-08-05] VITALS (7 sets, daily range): BP systolic 142–165; BP diastolic 17–77; PULSE 88–96; RESP 12–26; TEMP 36.1; O2SAT 88–98; BMI 46.2
--- NOTE | 2023-08-05 21:30 | EKG12_ITS ---
Test Reason : DYSRHYTHMIA Blood Pressure : / mmHG Vent. Rate : 097 BPM Atrial Rate : 097 BPM P-R Int : 162 ms QRS Dur : 130 ms QT Int : 364 ms P-R-T Axes : 065 095 032 degrees QTc Int : 462 ms Normal sinus rhythm Right bundle branch block Septal infarct (cited on or before 09-MAY-2023) Abnormal ECG Confirmed by ADRY CHACON MD ([id number]), news editor JAY SANTORO ([id number]) on 08/13/2023 7:35:14 AM Referred By: DEBBY Confirmed By:ADRY CHACON MD
--- NOTE | 2023-08-05 21:31 | ED.VIS.DYS ---
HPI History of Present Illness Chief Complaint: Shortness of Breath Informant: patient and spouse/S.O. Onset/Context/Timing Onset: Today and Hours Context: gradual Timing: Continuous Current Severity: Moderate Maximum Severity: Moderate Worsened by: Nothing Relieved by: Oxygen Associated Symptoms Negative for cough, rhinorrhea, post nasal drip, ear pain, sore throat, subjective, chills, sweats, clear sputum, white sputum, yellow sputum or green sputum Chest Pain: Positive for None Narrative Narrative: 52-year-old male history of CHF chronic COPD on 4 L at home prior PE currently on Eliquis. Shortness of breath began today around 615 and felt he was getting a URI. Pulse ox at home was 50% his stated was on 3 L of oxygen she turned it up to 7 L is only an 80% range. No chest pain. No hemoptysis. No fever. PE Risk Factors: Positive for Prior DVT or PE; Negative for Cancer, OCP + Smoking + > 35, Recent immobilization, Recent surgery or Recent travel Prior similar symptoms: Yes Recent Illness/Hospitalization: Yes PFSH PFSH Medical History Anxiety BiPAP (biphasic positive airway pressure) dependence Blood disorder Cardiology follow-up encounter Chronic hypoxemic respiratory failure Chronic respiratory failure with hypoxia Closed fracture dislocation of joint of left lower extremity Closed fracture of left tibial plateau Congestive heart failure Congestive heart failure (CHF) COPD (chronic obstructive pulmonary disease) Depression Former smoker History of echocardiogram History of edema History of pain when walking HTN (hypertension) Hypertension Incarcerated umbilical hernia Obesities, morbid Obesity hypoventilation syndrome On home oxygen therapy LAYLA (obstructive sleep apnea) Other specified injury of left quadriceps muscle, fascia and tendon, initial encounter Pulmonary embolism Pulmonary HTN Pulmonary hypertension Seasonal allergies Severe persistent asthma Stage 4 very severe COPD by GOLD classification Stage 4 very severe COPD by GOLD classification Tobacco dependence Uses wheelchair Home Medications spironolactone 25 mg tablet 25 mg PO BID bp 12/02/15 [History Last Taken 01/01/23] bupropion HCl 150 mg 24 hr tablet, extended release (Wellbutrin XL) 150 mg PO DAILY mental health 10/11/21 [History Last Taken 01/01/23] acetaminophen 500 mg tablet 1,000 mg PO Q6H PRN Pain 11/04/21 [History Last Taken 11/07/21 20:00] cyanocobalamin (vitamin B-12) 500 mcg tablet 500 mcg PO DAILY SUPPLEMENT 11/08/21 [History Last Taken 01/01/23] sertraline 100 mg tablet 100 mg PO DAILY mental health 01/23/22 [History Last Taken 01/01/23] montelukast 10 mg tablet (Singulair) 10 mg PO QPM COPD #30 tabs 06/30/22 [Rx Last Taken 12/31/22] mepolizumab 100 mg/mL subcutaneous auto-injector (Nucala) 300 mg subcut Q4W asthma 11/05/22 [History Last Taken 12/10/22] guaifenesin 1,200 mg tablet, extended release 12 hr 1,200 mg PO Q12H PRN Cough #14 tabs 11/08/22 [Rx Last Taken 12/31/22] losartan 25 mg tablet 25 mg PO DAILY #30 tabs 11/08/22 [Rx Last Taken 01/01/23] torsemide 20 mg tablet 20 mg PO BID #60 tabs 11/08/22 [Rx Last Taken 12/31/22] furosemide 40 mg tablet 40 mg PO DAILY FLUID 01/01/23 [History Last Taken 12/31/22] [id number] acid-vit K-lycop 400 mcg-20 mcg-370 mcg tablet (Men's 50 Plus Multivitamin) 1 tab PO DAILY SUPPLEMENT 01/01/23 [History Last Taken 12/31/22] ipratropium 0.5 mg-albuterol 3 mg (2.5 mg base)/3 mL nebulization soln 3 ml inhalation Q4H PRN Wheezing #360 mL 03/13/23 [Rx Last Taken Unknown] tramadol 50 mg tablet 50 mg PO Q4H PRN PRN Pain 3 days #20 tabs 05/14/23 [Rx Last Taken Unknown] albuterol sulfate 2.5 mg/3 mL (0.083 %) solution for nebulization 2.5 mg (3 mL) inhalation Q4H PRN shortness of breath or wheezing #360 mL 05/23/23 [Rx Last Taken Unknown] albuterol sulfate 90 mcg/actuation aerosol inhaler (Ventolin HFA) 2 puff inhalation Q4H PRN shortness of breath or wheezing #18 grams 05/23/23 [Rx Last Taken Unknown] cetirizine 10 mg tablet 10 mg PO DAILY #90 tabs 05/30/23 [Rx Last Taken Unknown] metoprolol tartrate 50 mg tablet 50 mg PO BID bp 06/10/23 [History Last Taken Unknown] apixaban 5 mg tablet (Eliquis) 5 mg PO BID #60 tabs 07/10/23 [Rx Last Taken Unknown] budesonide 1 mg/2 mL suspension for nebulization 1 mg (2 mL) inhalation BID #60 mL 07/10/23 [Rx Last Taken Unknown] cholecalciferol (vitamin D3) 125 mcg (5,000 unit) disintegrating tablet 125 mcg PO .every other day 08/05/23 [History Last Taken Unknown] Allergy/AdvReac Type Severity Reaction Status Date / Time clarithromycin [From Biaxin] Allergy Hives Verified 08/05/23 21:07 Penicillins Allergy Hives Verified 08/05/23 21:07 Family History Mother Diabetes Breast cancer Heart disease Hypertension COPD (chronic obstructive pulmonary disease) Asthma Father Hypertension CVA (cerebral vascular accident) Surgical History History of hernia repair (~08/2018) History of tonsillectomy History of tooth extraction Hx of cardiac cath Social History household members: spouse Smoking Status: Current some day smoker tobacco type: cigarettes how long ago did patient quit smoking: Patient admits to smoking 1 cigarette to 2 cigarettes weekly second hand exposure: Yes quit status: has quit before alcohol intake: never substance use type: does not use ROS ROS ED ROS Narrative Her eye. Review of Systems ROS Unobtainable: Denies due to encephalopathy Constitutional Constitutional ED: Denies chills or fever(s) ENT ENT ED: Reports rhinorrhea; Denies ear pain or sore throat Cardiovascular Cardiovascular: Denies chest pain or palpitations Respiratory/Chest Respiratory/Chest: Reports dyspnea; Denies cough Gastrointestinal Gastrointestinal: Denies abdominal pain, constipation, diarrhea, melena, nausea or vomiting Genitourinary Genitourinary ED: Denies dysuria or hematuria Musculoskeletal Musculoskeletal: Denies arthralgias, back pain or myalgias Integumentary Denies abscess or Abrasions Neurologic Neurologic: Denies headache(s) Psychiatric Psychiatric: Denies anxiety Endocrine Endocrinology: Denies cold intolerance Hematologic/Lymphatic Hematologic/Lymphatic: Denies lymphadenopathy Allergic/Immunologic Allergic/Immunologic ED: Denies mouth swelling or tongue swelling EXAM Physical Exam Narrative Exam Narrative: 52-year-old male on BiPAP. Vital signs are stable afebrile. On 6 L 88 to 96%. Patient does not look septic or toxic. H EENT exam unremarkable. Neck nontender. No JVD. No lymphadenopathy. Lungs diminished breath sounds bilaterally. Heart regular rhythm rate in 90s no murmur. Chest wall nontender. Abdomen soft nontender. Moving all 4 extremities. 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 Dorsi plantarflexion intact. Calves are nontender without edema or cords. Neurologically patient is awake alert no focal motor deficits. Const Vital Signs: 08/05/23 21:07 08/05/23 21:12 08/05/23 21:45 Temperature 97 F L Temperature Source Temporal Pulse Rate 96 96 Respiratory Rate 17 19 H Respiratory Effort Respiratory Pattern Blood Pressure 165/17 H Blood Pressure Mean 66 Pulse Ox 88 96 Oxygen Delivery Method Nasal Cannula Nasal Cannula CPAP Oxygen Flow Rate (L/min) 6 6 Fraction of Inspired Oxygen (FIO2) 40 08/05/23 21:45 08/05/23 21:15 08/05/23 21:59 Temperature Temperature Source Pulse Rate 93 96 Respiratory Rate 20 H 26 H Respiratory Effort Short of Breath Respiratory Pattern Normal Tachypnea Blood Pressure Blood Pressure Mean Pulse Ox 94 Oxygen Delivery Method CPAP Oxygen Flow Rate (L/min) Fraction of Inspired Oxygen (FIO2) 40 40 08/05/23 22:10 Temperature Temperature Source Pulse Rate Respiratory Rate Respiratory Effort Respiratory Pattern Blood Pressure Blood Pressure Mean Pulse Ox Oxygen Delivery Method Oxygen Flow Rate (L/min) Fraction of Inspired Oxygen (FIO2) 50 Positive well nourished, well developed and obese; Negative for cachectic, contractures or unkempt General Appearance ED: well developed; Negative for unkempt, cachectic, contractures, NAD or pallor Nutritional Appearance: obese; Negative for cachectic HEENT Reports moist mucous membranes; Denies dry mucous membranes atraumatic; Negative for trauma or tenderness Mouth ED: No dry mucous membranes Mouth: No dry mucous membranes Eyes PERRL and EOMs intact bilaterally General Eye ED: Negative for pale conjunctiva or scleral icterus Neck no lymphadenopathy, supple, no meningeal signs and no JVD General: Negative for tenderness Lymph Lymphatic: Negative for other Chest Wall Chest: Negative for other Resp normal respiratory effort and clear to auscultation bilaterally Resp Narrative: Diminished breath sounds bilaterally. Effort and Inspection: Negative for pain with movement Auscultation: diminished lung sounds; Negative for rales, rhonchi or wheezes Cardio regular rate, regular rhythm, S1 normal heart sound, S2 normal heart sound and no murmurs Rate: Negative for bradycardia or tachycardic Rhythm: Negative for abnormal rhythm GI non-tender, non-distended and no masses Inspection: Negative for other Auscultation: normoactive bowel sounds Palpation: soft; Negative for tender or guarding Back/Spine no CVA tenderness and normal to inspection Neuro oriented x3 and CN's II-XII intact bilaterally Sensorium / Orientation: alert, oriented to person, oriented to place and oriented to time; Negative for orientation impaired, confused, lethargic or stuporous Motor Exam: strength 5/5 throughout Psych mental status grossly normal Appearance: Negative for unkempt Attitude: No agitated Mood & Affect: Negative for depressed Thought Process: normal thought process Skin no wounds General Skin Exam: Negative for jaundice or pallor Lesions: no lesions Rashes: no rashes Trauma: Negative for abrasion MDM MDM MDM Narrative Medical decision making narrative: 52-year-old male with COPD and CHF with shortness of breath will undergo cardiac work-up. Treated with aerosols, DuoNeb and albuterol and Solu-Medrol. Currently is on BiPAP. Will need to be admitted. Differential would include COPD flare, CHF, pneumonia versus other etiologies. Repeat exam at 10:38 PM. Patient is doing well. Okay he is resting comfortably. I went over his test results with he and his . Hospitalist on page for admission. History & Record Review Discussion w/independent historian: Patient Additional record(s) reviewed:: Prior inpatient record, Prior outpatient record, Prior ED visit and Prior labs Lab Data Attestation: I reviewed the patient's lab results. Lab results narrative: Seizures awake at 12.3. H&H 13 and 45. Platelets 217. Electrolytes show a CO2 of 45. Glucose 141. Was only 12. And BNP was 101. Venous blood gas shows a pH of 7.23 with a PCO2 118 and a PO2 of 76. Labs: Laboratory Results - last 24 hr 08/05/23 21:30 WBC 12.3 H RBC 4.23 L Hgb 13.1 Hct 45.2 MCV 106.9 H MCH 31.0 MCHC 29.0 L RDW Std Deviation 51.0 H RDW Coeff of Valerie 12.9 Plt Count 217 MPV 10.0 Immature Gran % (Auto) 1.700 H Neut % (Auto) 65.9 Lymph % (Auto) 22.0 Thomas % (Auto) 8.8 Eos % (Auto) 0.8 Baso % (Auto) 0.8 Absolute Neuts (auto) 8.1 H Absolute Lymphs (auto) 2.71 Nucleated RBC % 0 Sodium 137 Potassium 4.5 Chloride 94 L Carbon Dioxide > 45.0 H* Anion Gap TNP BUN 11 Creatinine 0.80 Estim Creat Clear Calc 115.86 Est GFR (MDRD) Af Amer 129 Est GFR (MDRD) Non-Af 107 BUN/Creatinine Ratio 13.7 Glucose 141 H Calcium 9.2 Troponin I High Sens 12 B-Natriuretic Peptide 101.6 H Radiography Chest X-Ray - ED: 1 View, Read by ED Physician, Heart, Lungs, Mediastinum, Bony Structures, No Acute Disease and Chronic Changes Diagnostic Testing: Chest x-ray, portable, single view Dermabond to self shows normal cardiac silhouette. Chronic changes. Bibasilar atelectasis. No significant effusions. No pneumonia. Rhythm Strip Rhythm Strip: Sinus Rhythm Rate: 97 Ectopy: None EKG Initial EKG: Attestation: I personally reviewed and interpreted this EKG as follows: Interpretation: Sinus Rhythm and No Acute Injury Pattern Comments: Normal sinus rhythm rate of 97. Right bundle branch block. No acute signs of RI or ischemia. EKG has no significant change from recent EKG from May. Critical Care Time Critical Care Time: Yes Critical care time (excluding procedures): 30-74 minutes, Including time spent:, Discussing w/Patient &/or Family/Cardiothoracic Physiotherapist, Discussing w/Consultants, Arranging Admission or Transfer, Performing Direct Patient Care at Bedside and - (35 minutes.) Discharge Plan Dx/Rx/DC Orders Clinical Impression: Chronic anticoagulation, Respiratory failure, Hypoxia, Acute exacerbation of chronic obstructive pulmonary disease, Acute respiratory acidosis Disposition Disposition: [facility]
[2023-08-05 21:39] LABS: Absolute Lymphocyte Count 2.71 X10^3/uL (0.83-4.51); Absolute Neutrophil Count 8.1 X10^3/uL (2.0-7.7); Basophil% 0.8 % (0-1); Eosinophils% 0.8 % (0-5); Hematocrit 45.2 % (40-54); Hemoglobin 13.1 g/dL (13.0-16.5); Lymphocyte # 2.71 X10^3/ul (0.83-4.51); Mean Corpuscular Volume 106.9 fL (80-94); Monocyte# 1.08 X10^3/uL; Monocyte% 8.8 % (0-10); NRBC Flagged by Analyzer 0 % (0-5); Neutrophil # 8.14 X10^3/uL (2.7-7.7); Neutrophil % 65.9 % (47-70); Platelet Count 217 K/mm3 (150-450); RBC Distribution Width CV 12.9 % (11.6-14.6); Red Blood Count 4.23 M/mm3 (4.6-6.2); White Blood Count 12.3 K/mm3 (4.4-11.0)
[2023-08-05] MEDS: MethylPREDNISolone 125 MG/2 ML Vial IV (21:55)
[2023-08-05] MEDS: Albuterol 2.5 MG/3 ML VIAL.NEB. INHALATION (21:59)
[2023-08-05] MEDS: Ipratropium/Albuterol Sulfate 3 ML AMPUL.NEB INHALATION (21:59)
--- NOTE | 2023-08-05 22:04 | RAD_ITS ---
INDICATION: chest pain EXAMINATION/TECHNIQUE: X-RAY - XR Chest 1 View COMPARISON: Two-view chest x-ray from 06/10/2023 FINDINGS: LINES/DEVICES: None. LUNGS: Hyperexpanded lungs again noted. No overt pulmonary edema or focal airspace consolidation. No sizable pleural effusion. No pneumothorax detected. MEDIASTINUM AND CARDIOVASCULAR STRUCTURES: Heart size within normal limits. Prominent pulmonary artery shadow again noted. BONES AND SOFT TISSUES: No acute findings. RAD/Chest 1 View (Portable) IMPRESSION: COPD with evidence of chronic pulmonary arterial hypertension. Electronically Signed: Ankit Chauhan MD at 23:55 EDT ,
[2023-08-05 22:06] LABS: BNP,B-Type NATRIURETIC PEPTIDE 101.6 pg/mL (0-100)
[2023-08-05 22:17] LABS: BUN 11 mg/dL (7-18); BUN/Creat Ratio 13.7 RATIO (10-20); Calcium,Total 9.2 mg/dL (8.5-10.1); Carbon Dioxide > 45.0 mmol/L (21.0-32.0); Chloride 94 mmol/L (98-107); EST Glomerular Filtration Rate 107 mL/min (>60); Est Glom Filt Rate - Afr Amer 129 mL/min (>60); Estimated Creatinine Clearance 115.86 ml/min; Glucose 141 mg/dL (74-106); Potassium 4.5 mmol/L (3.5-5.1); Sodium Level 137 mmol/L (136-145); Troponin-I HS 12 pg/mL (3.0-78.0)
--- NOTE | 2023-08-05 22:44 | HP.PCM.HOS_ITS ---
HPI - General General Date of Admission: 08/05/23 Date of Service: 08/05/23 Chief Complaint: Dyspnea, rhinorrhea, hypoxia at home. HPI Narrative The patient is a 52 y/o M w/ PMHx: Morbid obesity, Anxiety and Depression, LAYLA on BIPAP q HS, HTN, HLD, Chronic Severe COPD/Asthma with Chronic Hypoxic Respiratory Failure (4L NC), Tobacco use (1-2 cig still/week), Hx PE, Pulmonary HTN who presents to the [facility] ED on 08/05/23 with history of progressively worsening dyspnea starting approximately 615 with mild URI type symptoms with rhinorrhea with pulse oximeter noted to be 50% on 3 L prompting to pronate up to 7 L however he only maintained 80% with no recent fevers or chills but given symptoms and worsening respiratory status prompted ED immediate evaluation. 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 Given his history they presented earlier for evaluation and initially he was up and able to walk to EMS but worsened in the ED and more encephalopathic. Work-up in the ED included T97, heart 96, BP 165/17, respiratory 17, initially 88% on 6 L nasal cannula with most recent oxygen usage noted to be 4 L nasal cannula on 07/10/2023 eventually placed on BiPAP with 40% FiO2, VBG with pH 7.24, P O2 77, bicarb 51, CO2 total greater than 50, saturation 90%, POC mixed VBG PCO2 118.7 performed on BiPAP, CBC with WC 12.3, human 13.1, platelet 217 with left shift, BMP with chloride 94, carbon oxide greater than 45, glucose 141, troponin 12, BNP 102.6, chest x-ray with no acute cardiopulmonary findings, EKG SR with RBBB rate 97 unchanged from prior. In the ED patient administered Solu-Medrol 125 mg IV x1, DuoNeb and albuterol therapies. [facility] Medical History Anxiety and depression BiPAP (biphasic positive airway pressure) dependence Blood disorder Cardiology follow-up encounter Chronic hypoxemic respiratory failure Closed fracture dislocation of joint of left lower extremity Closed fracture of left tibial plateau Congestive heart failure COPD (chronic obstructive pulmonary disease) Former smoker History of echocardiogram History of edema History of pain when walking HTN (hypertension) Hypertension Incarcerated umbilical hernia Obesities, morbid Obesity hypoventilation syndrome On home oxygen therapy LAYLA (obstructive sleep apnea) Other specified injury of left quadriceps muscle, fascia and tendon, initial encounter Pulmonary embolism Seasonal allergies Severe persistent asthma Stage 4 very severe COPD by GOLD classification Tobacco dependence Uses wheelchair Home Medications spironolactone 25 mg tablet 25 mg PO BID bp 12/02/15 [History Last Taken 01/01/23] bupropion HCl 150 mg 24 hr tablet, extended release (Wellbutrin XL) 150 mg PO DAILY mental health 10/11/21 [History Last Taken 01/01/23] acetaminophen 500 mg tablet 1,000 mg PO Q6H PRN Pain 11/04/21 [History Last Taken 11/07/21 20:00] cyanocobalamin (vitamin B-12) 500 mcg tablet 500 mcg PO DAILY SUPPLEMENT 11/08/21 [History Last Taken 01/01/23] sertraline 100 mg tablet 100 mg PO DAILY mental health 01/23/22 [History Last Taken 01/01/23] montelukast 10 mg tablet (Singulair) 10 mg PO QPM COPD #30 tabs 06/30/22 [Rx Las t Taken 12/31/22] mepolizumab 100 mg/mL subcutaneous auto-injector (Nucala) 300 mg subcut Q4W asthma 11/05/22 [History Last Taken 12/10/22] guaifenesin 1,200 mg tablet, extended release 12 hr 1,200 mg PO Q12H PRN Cough #14 tabs 11/08/22 [Rx Last Taken 12/31/22] losartan 25 mg tablet 25 mg PO DAILY #30 tabs 11/08/22 [Rx Last Taken 01/01/23] torsemide 20 mg tablet 20 mg PO BID #60 tabs 11/08/22 [Rx Last Taken 12/31/22] furosemide 40 mg tablet 40 mg PO DAILY FLUID 01/01/23 [History Last Taken 12/31] jozzqooprivz-txz-iswka acid-vit K-lycop 400 mcg-20 mcg-370 mcg tablet (Men's 50 Plus Multivitamin) 1 tab PO DAILY SUPPLEMENT 01/01/23 [History Last Taken 12/31/22] ipratropium 0.5 mg-albuterol 3 mg (2.5 mg base)/3 mL nebulization soln 3 ml inhalation Q4H PRN Wheezing #360 mL 03/13/23 [Rx Last Taken Unknown] tramadol 50 mg tablet 50 mg PO Q4H PRN PRN Pain 3 days #20 tabs 05/14/23 [Rx Last Taken Unknown] albuterol sulfate 2.5 mg/3 mL (0.083 %) solution for nebulization 2.5 mg (3 mL) inhalation Q4H PRN shortness of breath or wheezing #360 mL 05/23/23 [Rx Last Taken Unknown] albuterol sulfate 90 mcg/actuation aerosol inhaler (Ventolin HFA) 2 puff inhalation Q4H PRN shortness of breath or wheezing #18 grams 05/23/23 [Rx Last Taken Unknown] cetirizine 10 mg tablet 10 mg PO DAILY #90 tabs 05/30/23 [Rx Last Taken Unknown] metoprolol tartrate 50 mg tablet 50 mg PO BID bp 06/10/23 [History Last Taken Unknown] apixaban 5 mg tablet (Eliquis) 5 mg PO BID #60 tabs 07/10/23 [Rx Last Taken Unknown] budesonide 1 mg/2 mL suspension for nebulization 1 mg (2 mL) inhalation BID #60 mL 07/10/23 [Rx Last Taken Unknown] cholecalciferol (vitamin D3) 125 mcg (5,000 unit) disintegrating tablet 125 mcg PO .every other day 08/05/23 [History Last Taken Unknown] Allergy/AdvReac Type Severity Reaction Status Date / Time clarithromycin [From Biaxin] Allergy Hives Verified 08/05/23 21:07 Penicillins Allergy Hives Verified 08/05/23 21:07 Family History Mother Diabetes Breast cancer Heart disease Hypertension COPD (chronic obstructive pulmonary disease) Asthma Father Hypertension CVA (cerebral vascular accident) Surgical History History of hernia repair (~08/2018) History of tonsillectomy History of tooth extraction Hx of cardiac cath Social History household members: spouse Smoking Status: Current some day smoker tobacco type: cigarettes how long ago did patient quit smoking: Patient admits to smoking 1 cigarette to 2 cigarettes weekly second hand exposure: Yes quit status: has quit before alcohol intake: never substance use type: does not use ROS Review of Systems ROS Unobtainable: due to encephalopathy Vital Signs Vital Signs Vital Signs: 08/05/23 21:07 08/05/23 21:12 08/05/23 21:45 Temperature 97 F L Temperature Source Temporal Pulse Rate 96 96 Respiratory Rate 17 19 H Respiratory Effort Respiratory Pattern Blood Pressure 165/17 H Blood Pressure Mean 66 Pulse Ox 88 96 Oxygen Delivery Method Nasal Cannula Nasal Cannula CPAP Oxygen Flow Rate (L/min) 6 6 Fraction of Inspired Oxygen (FIO2) 40 08/05/23 21:45 08/05/23 21:15 08/05/23 21:59 Temperature Temperature Source Pulse Rate 93 96 Respiratory Rate 20 H 26 H Respiratory Effort Short of Breath Respiratory Pattern Normal Tachypnea Blood Pressure Blood Pressure Mean Pulse Ox 94 Oxygen Delivery Method CPAP Oxygen Flow Rate (L/min) Fraction of Inspired Oxygen (FIO2) 40 40 08/05/23 22:10 Temperature Temperature Source Pulse Rate Respiratory Rate Respiratory Effort Respiratory Pattern Blood Pressure Blood Pressure Mean Pulse Ox Oxygen Delivery Method Oxygen Flow Rate (L/min) Fraction of Inspired Oxygen (FIO2) 50 Weight Weight: 340 lb 9.827 oz Body Mass Index (BMI) 46.2 Physical Exam Narrative Physical Examination: General: Patient extremely encephalopathic, lethargic, will awaken with sternal rub but falls back asleep, not markedly alert, not able to answer orientation questions, seated upright in ED bed, BiPAP in place, respiratory distress improved but still as noted encephalopathic. Skin: Normal color, normal turgor, no icterus, no cyanosis except occasional staged ecchymoses, abrasion, bilateral lower extremity venous stasis skin changes. HEENT: AT/NC, EOM difficult to assess given encephalopathy, PERRLA, dry MM, difficult to assess carotid bruits given referred sounds with BiPAP, difficult to assess JVD given thickened neck. Lungs: Tight, significantly diminished, BiPAP in place, respiratory distress improved however still markedly encephalopathic, very soft occasional end ex piratory wheeze but very minimal air movement, no rales or rhonchi. Heart: Currently regular rate and rhythm; no gallop, rub audible. Abdomen: Soft, morbidly obese, no obvious grimacing with palpation, no obvious distention however habitus makes this evaluation difficult as well as evaluation of HSM, distant BS. Extremities: No cyanosis, clubbing, or marked edema, see skin. Neurological: Patient extremely encephalopathic, lethargic, will awaken with sternal rub but falls back asleep, not markedly alert, not able to answer orientation questions, seated upright in ED bed, BiPAP in place, respiratory distress improved but still as noted encephalopathic, cognitive function not baseline intact; pupils equally reactive to light and accommodation, cranial nerves appear grossly normal but difficult evaluation given encephalopathy, spontaneously moving extremities, strength severely globally decreased secondary to acute presentation. Psychiatric: Affect appears flat, lethargic, no acute evidence of depressive or anxiety feelings. Results Lab / Micro Data 08/05/23 21:30 08/05/23 21:30 Labs: Laboratory Results - last 24 hr 08/05/23 21:30: WBC 12.3 H, RBC 4.23 L, Hgb 13.1, Hct 45.2, MCV 106.9 H, MCH 31.0, MCHC 29.0 L, RDW Std Deviation 51.0 H, RDW Coeff of Valerie 12.9, Plt Count 217, MPV 10.0, Immature Gran % (Auto) 1.700 H, Neut % (Auto) 65.9, Lymph % (Auto) 22.0, [place] % (Auto) 8.8, Eos % (Auto) 0.8, Baso % (Auto) 0.8, Absolute Neuts (auto) 8.1 H, Absolute Lymphs (auto) 2.71, Nucleated RBC % 0, Sodium 137, Potassium 4.5, Chloride 94 L, Carbon Dioxide > 45.0 H*, Anion Gap TNP, BUN 11, Creatinine 0.80, Estim Creat Clear Calc 115.86, Est GFR (MDRD) Af Amer 129, Est GFR (MDRD) Non-Af 107, BUN/Creatinine Ratio 13.7, Glucose 141 H, Calcium 9.2, Troponin I High Sens 12, B-Natriuretic Peptide 101.6 H Rhythm Strip Rhythm Strip: Sinus Rhythm Rate: 97 Ectopy: None Assessment & Plan Assessment/Plan (1) Acute exacerbation of chronic obstructive pulmonary disease: PLAN: Plan The patient is a 52 y/o M w/ PMHx: Morbid obesity, Anxiety and Depression, LAYLA on BIPAP q HS, HTN, HLD, Chronic Severe COPD/Asthma with Chronic Hypoxic Respiratory Failure (4L NC), Tobacco use (1-2 cig still/week), Hx PE, Pulmonary HTN who presents to the [facility] ED on 08/05/23 with history of progressively worsening dyspnea starting approximately 615 with mild URI type symptoms with rhinorrhea with pulse oximeter noted to be 50% on 3 L prompting to pronate up to 7 L however he only maintained 80% with no recent fevers or chills but given symptoms and worsening respiratory status prompted ED immediate evaluation. #1. Acute Encephalopathy secondary to Acute Hypoxic Respiratory Failure on Chronic secondary to Acute on Chronic Severe COPD/Asthma with respiratory acidosis, complicated by underlying pulmonary hypertension: Will admit to the ICU given encephalopathy associated, continue BIPAP VBG obtained in the ED with plan repeat in 1 hour following ICU transition, will consult medicare biller per ICU protocol, will once able transition to NC oxygen with wean as tolerated to home oxygen supplementation, continue ATC duonebs, PRN albuterol, IV methylprednisolone, HOB, IS parameters, will obtain sputum Cx, respiratory viral panel, COVID PCR, procalcitonin, will hold on immediately abx therapy but low threshold to add if appropriate. #2. Hyperglycemia, mild: Admission glucose 141, likely stress response, will obtain hemoglobin A1c be cautious. #3. Chart reported history of HFpEF: 01/30/2023 echocardiogram with normal LV systolic function, EF 65%, mildly dilated RV, mildly enlarged LA, trivial MVI, trivial TVI, RVSP at that point technically difficult to obtain, no evidence of diastolic dysfunction. Presentation with troponin 12, BNP 102.6, will continue Eliquis, torsemide, spironolactone, metoprolol, losartan home regimen, not on statin therapy, defer to outpatient. #4. Hypertension: Continue home regimen including torsemide, spironolactone, metoprolol, losartan home regimen, PRN hydralazine. #5. Hyperlipidemia: Per current list on regimen, clarifying. #6. Morbid Obesity: Weight loss and lifestyle changes encouraged. #7. Anxiety and depression: We will continue patient home sertraline and Wellbutrin regimen. #8. History VTE: Patient with history of pulmonary emboli, DVT, will continue Eliquis home regimen however if oral intake unsafe is noted may need in the interim to consider transition to therapeutic Lovenox versus heparin ip. #9. Tobacco Abuse: Encouraged cessation, inpatient consultation per RT, NR if desired. #10. Allergic rhinitis: We will continue patient home cetirizine regimen as well as montelukast regimen. #11. LAYLA: Uses BiPAP nightly, placing given acute presentation as noted. #12. DVT prophylaxis: We will continue patient home apixaban regimen however if oral intake unsafe in the interim may need to consider transitioning to therapeutic Lovenox versus heparin drip. #13. CODE status: Patient RANDAL is his who is and living will is not in place but discussed with that if they would like she may discuss these items with case management/social work during his admission for assistance in setting up. Discussed CODE status at length including difference between FULL code, DNR-CCA and DNR-CC status. Following discussions about the differences in these status, requested Full Code status. Advanced Care Planning Face to Face Time: 16 minutes. Charges/Coding Visit Charges Inpatient E&M: 45674 Init Hosp L3 Procedures Hospitalists Procedures: 13438 Advncd Care Plan 30 Min
[2023-08-05 22:53] LABS: Blood Gas Specimen Type VEN; O2 Delivery Device BiPAP; RR 12
[2023-08-05 22:54] LABS: EPAP 8; Time Given 2147
[2023-08-05 22:55] LABS: VBG PO2 77 mmHg (25-40); VBG pCO2 118.7 mmHg (41-51); VBG pH 7.24 (7.32-7.42)
[2023-08-05 22:56] LABS: VBG BASE EXCESS 23 mmol/L (-1.0-3.5); VBG Bicarbonate 51 mmol/L (22-26); VBG SO2 90 % (50-70); VBG TCO2 > 50 mmol/L (23-33)
[2023-08-05 23:46] LABS: Procalcitonin < 0.04 ng/mL (0.00-0.09)
[2023-08-06] VITALS (38 sets, daily range): BP systolic 112–158; BP diastolic 55–99; PULSE 73–108; RESP 12–23; TEMP 35.6–37.1; O2SAT 91–99; BMI 46.3
[2023-08-06 02:54] LABS: Base Excess 16 mmol/L (-2 to +2); Bicarbonate 41.5 mmol/L (22-26); Blood Gas Specimen Type ART; O2 Delivery Device BiPAP; PEEP 8; PO2 91 mmHG (75-100); RR 12; SITE R Radial; SO2 96 % (95-99); Total Carbon Dioxide 44 mmol/L; pH 7.33 (7.35-7.45)
[2023-08-06] MEDS: 0.9% Saline Lock 10 ML Syringe IV ×2 (05:57→09:01)
[2023-08-06 06:14] LABS: Absolute Lymphocyte Count 0.64 X10^3/uL (0.83-4.51); Absolute Neutrophil Count 9.6 X10^3/uL (2.0-7.7); Basophil# 0.04 X10^3/uL; Basophil% 0.4 % (0-1); Hematocrit 45.6 % (40-54); Hemoglobin 13.3 g/dL (13.0-16.5); Lymphocyte # 0.64 X10^3/ul (0.83-4.51); Lymphocyte % 6.1 % (19-41); Mean Corp Hgb Conc 29.2 g/dL (32-36); Mean Corpuscular Hgb 31.1 pg (27.0-32.0); Mean Corpuscular Volume 106.5 fL (80-94); Mean Platelet Vol. 10.5 fl (6.2-12.0); NRBC Flagged by Analyzer 0 % (0-5); Neutrophil # 9.62 X10^3/uL (2.7-7.7); Neutrophil % 91.5 % (47-70); Platelet Count 187 K/mm3 (150-450); RBC Distribution Width CV 12.7 % (11.6-14.6); RBC Distribution Width SD 50.1 fl (35.1-43.9); Red Blood Count 4.28 M/mm3 (4.6-6.2); White Blood Count 10.5 K/mm3 (4.4-11.0)
[2023-08-06] MEDS: Ipratropium/Albuterol Sulfate 3 ML AMPUL.NEB INHALATION ×3 (06:46→19:42)
[2023-08-06 06:54] LABS: ALB/GLOB Ratio 0.8 RATIO (0.9-2.4); AST(SGOT) 22 U/L (15-37); Alanine Aminotransfer ALT/SGPT 27 U/L (16-61); Albumin, Serum 3.5 g/dL (3.2-5.0); Alkaline Phosphatase 108 U/L (45-117); Anion Gap 0 (5-15); BUN 10 mg/dL (7-18); BUN/Creat Ratio 12.5 RATIO (10-20); Calcium,Total 9.3 mg/dL (8.5-10.1); Chloride 95 mmol/L (98-107); EST Glomerular Filtration Rate 107 mL/min (>60); Est Glom Filt Rate - Afr Amer 130 mL/min (>60); Estimated Creatinine Clearance 115.86 ml/min; Globulin 4.4 g/dL (2.2-4.2); Glucose 162 mg/dL (74-106); Potassium 4.6 mmol/L (3.5-5.1); Protein, Total 7.9 g/dL (6.4-8.2); Sodium Level 138 mmol/L (136-145)
[2023-08-06] MEDS: Spironolactone 25 MG Tablet PO ×2 (08:59→20:28)
[2023-08-06] MEDS: Losartan Potassium 25 MG Tablet PO (08:59)
[2023-08-06] MEDS: Loratadine 10 MG Tablet PO (08:59)
[2023-08-06] MEDS: APIXABAN 5 MG TABLET PO ×2 (08:59→20:28)
[2023-08-06] MEDS: Furosemide 40 MG Tablet PO (09:00)
[2023-08-06] MEDS: Metoprolol Tartrate 50 MG Tablet PO ×2 (09:00→20:28)
[2023-08-06] MEDS: guaiFENesin 1,200 MG Tablet 1200 MG PO ×2 (09:00→20:28)
[2023-08-06] MEDS: buPROPion (XL) 150 MG TABLET.XL PO (09:01)
[2023-08-06] MEDS: Sertraline 100 MG Tablet PO (09:01)
[2023-08-06 09:21] LABS: Hemoglobin A1c 5.3 % (3.8-5.6)
--- NOTE | 2023-08-06 09:24 | PCM.PN.HOSP ---
Subjective Subjective No issues overnight, doing okay on the BiPAP though he still seems a little bit drowsy Objective Data Objective Data Vital Signs: Vital Signs Temp Pulse Resp BP Pulse Ox O2 Del Method O2 Flow Rate 97.4 F L 88 14 151/93 H 94 Bi-pap 6 08/06/23 08:00 08/06/23 09:00 08/06/23 08:00 08/06/23 09:00 08/06/23 08:00 08/06/23 08:00 08/05/23 21:12 FiO2 30 08/06/23 08:00 Oxygen Flow Rate (L/min) 6 Oxygen Delivery Method Bi-pap Weight: 341 lb 7.936 oz Body Mass Index (BMI) 46.3 Lab / Micro Data 08/06/23 06:00 08/06/23 06:30 Labs: Laboratory Results - last 24 hr 08/05/23 21:30: WBC 12.3 H, RBC 4.23 L, Hgb 13.1, Hct 45.2, MCV 106.9 H, MCH 31.0, MCHC 29.0 L, RDW Std Deviation 51.0 H, RDW Coeff of Valerie 12.9, Plt Count 217, MPV 10.0, Immature Gran % (Auto) 1.700 H, Neut % (Auto) 65.9, Lymph % (Auto) 22.0, [place] % (Auto) 8.8, Eos % (Auto) 0.8, Baso % (Auto) 0.8, Absolute Neuts (auto) 8.1 H, Absolute Lymphs (auto) 2.71, Nucleated RBC % 0, Sodium 137, Potassium 4.5, Chloride 94 L, Carbon Dioxide > 45.0 H*, Anion Gap TNP, BUN 11, Creatinine 0.80, Estim Creat Clear Calc 115.86, Est GFR (MDRD) Af Amer 129, Est GFR (MDRD) Non-Af 107, BUN/Creatinine Ratio 13.7, Glucose 141 H, Calcium 9.2, Troponin I High Sens 12, B-Natriuretic Peptide 101.6 H, Procalcitonin < 0.04 08/06/23 06:00: WBC 10.5, RBC 4.28 L, Hgb 13.3, Hct 45.6, MCV 106.5 H, MCH 31.1, MCHC 29.2 L, RDW Std Deviation 50.1 H, RDW Coeff of Valerie 12.7, Plt Count 187, MPV 10.5, Immature Gran % (Auto) 1.000 H, Neut % (Auto) 91.5 H, Lymph % (Auto) 6.1 L, [place] % (Auto) 1.0, Eos % (Auto) 0.0, Baso % (Auto) 0.4, Absolute Neuts (auto) 9.6 H, Absolute Lymphs (auto) 0.64 L, Nucleated RBC % 0, Hemoglobin A1c 5.3 08/06/23 06:30: Sodium 138, Potassium 4.6, Chloride 95 L, Carbon Dioxide 43.0 H, Anion Gap 0 L, BUN 10, Creatinine 0.80, Estim Creat Clear Calc 115.86, Est GFR (MDRD) Af Amer 130, Est GFR (MDRD) Non-Af 107, BUN/Creatinine Ratio 12.5, Glucose 162 H, Calcium 9.3, Total Bilirubin 0.30, AST 22, ALT 27, Alkaline Phosphatase 108, Total Protein 7.9, Albumin 3.5, Globulin 4.4 H, Albumin/Globulin Ratio 0.8 L Micro: Microbiology 08/05/23 23:06 Mucosa - Nasopharyngeal Coronavirus COVID-19 PCR - Final 08/05/23 23:06 Mucosa - Nasopharyngeal Respiratory Panel (PCR) - Final ABG Data ABG results: ABG 08/05/23 08/05/23 08/05/23 21:47 21:47 21:47 Specimen Type PAPITO Sample Site Puncture Site Cancelled pH pCO2 Cancelled Bicarbonate Actual Total CO2 Base Excess O2 Saturation O2 % 40.0 ABG pCO2 ABG pO2 Tal Test VBG pH Cancelled 7.24 L VBG pO2 Cancelled 77 H VBG HCO3 Cancelled VBG Total CO2 VBG O2 Sat (Calc) VBG O2 Content VBG Base Excess POC Mix VBG pCO2 Pt Tmp Respiration Rate O2 Delivery Device FiO2 % FiO2 (liters per min) Tidal Volume POC PEEP EPAP Crit Call To/Read Back Blood Gas Notified Whom Blood Gas Notified Time Clinical Comments 08/05/23 08/05/23 08/05/23 21:47 21:47 21:47 Specimen Type Sample Site Puncture Site pH pCO2 Bicarbonate Actual Total CO2 Base Excess O2 Saturation O2 % ABG pCO2 ABG pO2 Tal Test VBG pH VBG pO2 VBG HCO3 51 H VBG Total CO2 > 50 H VBG O2 Sat (Calc) Cancelled 90 H VBG O2 Content Cancelled VBG Base Excess Cancelled 23 H POC Mix VBG pCO2 Pt Tmp 118.7 H* Respiration Rate 12 O2 Delivery Device BiPAP FiO2 % Cancelled FiO2 (liters per min) Cancelled Tidal Volume 500.0 POC PEEP EPAP 8 Crit Call To/Read Back Yes Blood Gas Notified Whom ED MD Blood Gas Notified Time 2146 Clinical Comments AVAPS 500 08/06/23 02:48 Specimen Type ART Sample Site R Radial Puncture Site pH 7.33 L pCO2 Bicarbonate Actual 41.5 H Total CO2 44 Base Excess 16 H O2 Saturation 96 O2 % 35.0 ABG pCO2 78.0 H* ABG pO2 91 Tal Test N/A VBG pH VBG pO2 VBG HCO3 VBG Total CO2 VBG O2 Sat (Calc) VBG O2 Content VBG Base Excess POC Mix VBG pCO2 Pt Tmp Respiration Rate 12 O2 Delivery Device BiPAP FiO2 % FiO2 (liters per min) Tidal Volume 450.0 POC PEEP 8 EPAP Crit Call To/Read Back Yes Blood Gas Notified Whom White Blood Gas Notified Time Clinical Comments Radiography Diagnostic Testing: Radiology Impression Chest X-Ray 08/05/23 22:04 IMPRESSION: COPD with evidence of chronic pulmonary arterial hypertension. Electronically Signed: Ankit Chauhan MD at 23:55 EDT , Rhythm Strip Rhythm Strip: Sinus Rhythm Rate: 97 Ectopy: None Physical Exam Narrative General: Alert but drowsy, cooperative, No apparent distress HEENT: Atraumatic, PERRLA, EOMI, Normocephalic Oral: Moist Mucosa Neck: Supple, No JVD Lungs: Diminished, poor air movement, No rhonchi, No wheeze, No rales Cardiovascular: Regular rate, Regular Rhythm, Normal S1, Normal S2, No murmurs Abdomen: Soft, Non Tender, Non-Distended, No Hepato-splenomegaly Extremities: No edema, Capillary Refill Less than 3 Seconds Skin: No rashes, No breakdown Musculoskeletal: No Tenderness to Palpation of Joints or Extremities Neurological: Moves all extremities, Sensory exam intact to light touch and pain Psych/Mental Status: Flat affect, drowsy Assessment & Plan Assessment/Plan (1) Acute exacerbation of chronic obstructive pulmonary disease: PLAN: Plan #1. Acute Encephalopathy secondary to Acute Hypoxic Respiratory Failure on Chronic secondary to Acute on Chronic Severe COPD/Asthma with respiratory acidosis, complicated by underlying pulmonary hypertension: Will admit to the ICU given encephalopathy associated, continue BIPAP VBG obtained in the ED with plan repeat in 1 hour following ICU transition, will consult trust evaluation supervisor per ICU protocol, will once able transition to NC oxygen with wean as tolerated to home oxygen supplementation, continue ATC duonebs, PRN albuterol, IV methylprednisolone, HOB, IS parameters, will obtain sputum Cx, respiratory viral panel, COVID PCR, procalcitonin, will hold on immediately abx therapy but low threshold to add if appropriate. 08/06/2023: Appreciate trust evaluation supervisor assistance, continue with the BiPAP he does appear to be improving though slowly can always repeat an ABG in a few hours to see if her making headway with his PCO2 #2. HTN/HLD/history of chronic diastolic CHF with pulmonary hypertension: 01/30/2023 echocardiogram with normal LV systolic function, EF 65%, mildly dilated RV, mildly enlarged LA, trivial MVI, trivial TVI, RVSP at that point technically difficult to obtain, no evidence of diastolic dysfunction. Presentation with troponin 12, BNP 102.6, will continue Eliquis, torsemide, spironolactone, metoprolol, losartan home regimen, not on statin therapy, defer to outpatient. 08/06/2023: We will continue to monitor and make adjustments to his medications as necessary #3. Morbid Obesity: Weight loss and lifestyle changes encouraged. #4. Anxiety and depression: We will continue patient home sertraline and Wellbutrin regimen. #5. History VTE: Patient with history of pulmonary emboli, DVT, will continue Eliquis home regimen however if oral intake unsafe is noted may need in the interim to consider transition to therapeutic Lovenox versus heparin drip. #6. Tobacco Abuse: Encouraged cessation, inpatient consultation per RT, NR if desired. #7. Allergic rhinitis: We will continue patient home cetirizine regimen as well as montelukast regimen. #8. LAYLA: Uses BiPAP nightly, placing given acute presentation as noted. DVT: Eliquis Charges/Coding Visit Charges Inpatient E&M: 90828 Subs Hosp L2
--- NOTE | 2023-08-06 11:20 | CASEMGMT ---
RN?CM?AIR BRUSH DECORATOR?CM?to room to meet with patient for initial transition planning/care coordination?assessment.?RN?CM?introduced self and role at [facility].? Pt voices understanding and consents to?assessment?at this time.? Pt resting in bed in no distress at this time. Pt is A/O at this time and answers all questions appropriately.?? Care providers, pharmacy, and demographics verified/updated at this time. PCP: Dr Chitra Scott Specialists:Dr Benavides/Alesia Morales, OPERATION SUPERVISOR--pulmonology, Dr Bojorquez-cardiology in [facility]: [facility] [address] Insurance:[employer] Prescription Benefit:?Yes Living Will/HPOA:?Has both LW and HCPOA, who is his sig other, Laura. Copies are on file @ [facility]. LNOK: Sig other, Laura/POA. son, Daniele Living Arrangements: Lives w/Laura in mobile home w/no steps to enter. Pt states he is mostly indep w/ADL's, but Laura does help when needed. Pt states he manages his own medications. Laura does home mgnt tasks. Transportation:?Pt states drives self and states no transportation concerns at this time.?Laura also drives DME: ?States has the following DME:?shower chair, nebulizer, pulse ox. Pt has a cane and walker he uses at times. Pt has O2 through [employer] and states he wears it 5-6 L/M @ HS, bleed-in via BIPAP and PRN. RN CM placed call to [facility] [employer]. Pt's current O2 orders are: 3 l/m continuous, 8 l/m w/exertion, and 2 l/m bleed-in via PAP. Pt states Laura could bring in portable O2 tank @ discharge for him to go home on. Pt states no need for further DME at this time.? HHC/SNF: No hx of SNF. [facility] w/[facility] for [facility]. Pt states he was getting therapy as well, but they have discharged him from therapy. He would like to resume /[facility] for SN only and declines wanting list of other HHC options. He states does not feel he will need therapy again. Pt wishes to return home and states has no concerns with going home at time of discharge.? CM?to follow for any increase in home oxygen needs and any further discharge planning/needs.? Pt voices no further concerns/needs at this time.? Advised pt to ask for?CM?if any further questions/concerns/needs arise.? Voices understanding. PLAN:??Home w/[facility]: SN Follow for any iincrease in home oxygen needs. Luis BSN?RN?CM
--- NOTE | 2023-08-06 11:28 | CON.PCM.CC_ITS ---
Assessment & Plan Assessment/Plan (1) Acute respiratory acidosis: (2) Acute exacerbation of chronic obstructive pulmonary disease: (3) Stage 4 very severe COPD by GOLD classification: PLAN: Plan Assessment 1 acute on chronic hypoxic and hypercapnic aspiratory failure 2 COPD exacerbation 3 stage IV COPD 4 chronic hypoxic respiratory failure current on 4 L nasal cannula at home 5 Morbid obesity BMI 46 6 history of DVT/PE noncompliant with Eliquis 7 LAYLA on home noninvasive vent Plan * Patient required continuous AVAPS overnight with improvement of his mental status and respiratory acidosis. Patient has had repeated exacerbations most recently in May. He was referred to [facility] for evaluation for lung transplant recently in June given his severe COPD * Continue steroids and breathing treatments * Chest x-ray is clear there is no fever or elevated white count, continue to hold antibiotics. Viral panel is negative * Unclear trigger for COPD exacerbation. Patient is supposed to be on Eliquis for history of DVT/PE. He reports that he missed a couple of doses. Will obtain bilateral lower extremity DVT scan * Continue to use AVAPS during sleeping hours. He is able to tolerate nasal cannula this morning. Start diet * PT/OT I spent 33 minutes of critical care time excluding the procedure time. I reviewed lab work, images, previous records and medication list. HPI Consult Data Date of Consult: 08/06/23 HPI Narrative Reason for Consultation: ICU care HPI Narrative: HARJIT ALBERTS, is a 52 M with past medical history of obesity BMI 46, LAYLA, COPD and chronic hypoxic resp failure on 4L NC at home. Pt presented with worsening mental status and dyspnea. He was found to be hypercapnic requiring continuous bipap and thus was admitted to the icu. No hx of fever/chills/cough or sputum production. This AM on my evaluation pt was awake and able to answer questions appropriately. He was switched to 4L NC which he tolerated. repeat ABG continues to show hypercapnia however this appears to be his baseline as his pH is preserved. [facility] Medical History Anxiety and depression BiPAP (biphasic positive airway pressure) dependence Blood disorder Cardiology follow-up encounter Chronic hypoxemic respiratory failure Closed fracture dislocation of joint of left lower extremity Closed fracture of left tibial plateau Congestive heart failure COPD (chronic obstructive pulmonary disease) Former smoker History of echocardiogram History of edema History of pain when walking HTN (hypertension) Hypertension Incarcerated umbilical hernia Obesities, morbid Obesity hypoventilation syndrome On home oxygen therapy LAYLA (obstructive sleep apnea) Other specified injury of left quadriceps muscle, fascia and tendon, initial encounter Pulmonary embolism Seasonal allergies Severe persistent asthma Stage 4 very severe COPD by GOLD classification Tobacco dependence Uses wheelchair Home Medications spironolactone 25 mg tablet 25 mg PO BID bp 12/02/15 [History Last Taken 01/01/23] bupropion HCl 150 mg 24 hr tablet, extended release (Wellbutrin XL) 150 mg PO DAILY mental health 10/11/21 [History Last Taken 01/01/23] acetaminophen 500 mg tablet 1,000 mg PO Q6H PRN Pain 11/04/21 [History Last Taken 11/07/21 20:00] cyanocobalamin (vitamin B-12) 500 mcg tablet 500 mcg PO DAILY SUPPLEMENT 11/08/21 [History Last Taken 01/01/23] sertraline 100 mg tablet 100 mg PO DAILY mental health 01/23/22 [History Last Taken 01/01/23] montelukast 10 mg tablet (Singulair) 10 mg PO QPM COPD #30 tabs 06/30/22 [Rx Last Taken 12/31/22] mepolizumab 100 mg/mL subcutaneous auto-injector (Nucala) 300 mg subcut Q4W asthma 11/05/22 [History Last Taken 12/10/22] guaifenesin 1,200 mg tablet, extended release 12 hr 1,200 mg PO Q12H PRN Cough #14 tabs 11/08/22 [Rx Last Taken 12/31/22] losartan 25 mg tablet 25 mg PO DAILY #30 tabs 11/08/22 [Rx Last Taken 01/01/23] torsemide 20 mg tablet 20 mg PO BID #60 tabs 11/08/22 [Rx Last Taken 12/31/22] furosemide 40 mg tablet 40 mg PO DAILY FLUID 01/01/23 [History Last Taken 12/31/22] nvbynqricuuu-ora-wvjcl acid-vit K-lycop 400 mcg-20 mcg-370 mcg tablet (Men's 50 Plus Multivitamin) 1 tab PO DAILY SUPPLEMENT 01/01/23 [History Last Taken 12/31/22] ipratropium 0.5 mg-albuterol 3 mg (2.5 mg base)/3 mL nebulization soln 3 ml inhalation Q4H PRN Wheezing #360 mL 03/13/23 [Rx Last Taken Unknown] tramadol 50 mg tablet 50 mg PO Q4H PRN PRN Pain 3 days #20 tabs 05/14/23 [Rx Last Taken Unknown] albuterol sulfate 2.5 mg/3 mL (0.083 %) solution for nebulization 2.5 mg (3 mL) inhalation Q4H PRN shortness of breath or wheezing #360 mL 05/23/23 [Rx Last Taken Unknown] albuterol sulfate 90 mcg/actuation aerosol inhaler (Ventolin HFA) 2 puff inhalation Q4H PRN shortness of breath or wheezing #18 grams 05/23/23 [Rx Last Taken Unknown] cetirizine 10 mg tablet 10 mg PO DAILY #90 tabs 05/30/23 [Rx Last Taken Unknown] metoprolol tartrate 50 mg tablet 50 mg PO BID bp 06/10/23 [History Last Taken U nknown] apixaban 5 mg tablet (Eliquis) 5 mg PO BID #60 tabs 07/10/23 [Rx Last Taken Unknown] budesonide 1 mg/2 mL suspension for nebulization 1 mg (2 mL) inhalation BID #60 mL 07/10/23 [Rx Last Taken Unknown] cholecalciferol (vitamin D3) 125 mcg (5,000 unit) disintegrating tablet 125 mcg PO .every other day 08/05/23 [History Last Taken Unknown] Allergy/AdvReac Type Severity Reaction Status Date / Time clarithromycin [From Biaxin] Allergy Hives Verified 08/05/23 21:07 Penicillins Allergy Hives Verified 08/05/23 21:07 Family History Mother Diabetes Breast cancer Heart disease Hypertension COPD (chronic obstructive pulmonary disease) Asthma Father Hypertension CVA (cerebral vascular accident) Surgical History History of hernia repair (~08/2018) History of tonsillectomy History of tooth extraction Hx of cardiac cath Social History household members: spouse Smoking Status: Current some day smoker tobacco type: cigarettes how long ago did patient quit smoking: Patient admits to smoking 1 cigarette to 2 cigarettes weekly second hand exposure: Yes quit status: has quit before alcohol intake: never substance use type: does not use ROS ROS Narrative Negative except as mentioned above Physical Exam Narrative General alert oriented in no acute distress HEENT. Normocephalic atraumatic, pupils equal and reactive Respiratory reduced air entry bilaterally, mild end expiratory wheeze, no crackles Cardiac S1-S2, regular rate and rhythm GI abdomen soft and nontender MSK no lower extremity edema Skin no rashes Neuro moves all extremities, no dysarthria, no facial droop Lab / Micro Data 08/06/23 06:00 08/06/23 06:30 Labs: Laboratory Results - last 24 hr 08/05/23 21:30: WBC 12.3 H, RBC 4.23 L, Hgb 13.1, Hct 45.2, MCV 106.9 H, MCH 31.0, MCHC 29.0 L, RDW Std Deviation 51.0 H, RDW Coeff of Valerie 12.9, Plt Count 217, MPV 10.0, Immature Gran % (Auto) 1.700 H, Neut % (Auto) 65.9, Lymph % (Auto) 22.0, Treasure % (Auto) 8.8, Eos % (Auto) 0.8, Baso % (Auto) 0.8, Absolute Neuts (auto) 8.1 H, Absolute Lymphs (auto) 2.71, Nucleated RBC % 0, Sodium 137, Potassium 4.5, Chloride 94 L, Carbon Dioxide > 45.0 H*, Anion Gap TNP, BUN 11, Creatinine 0.80, Estim Creat Clear Calc 115.86, Est GFR (MDRD) Af Amer 129, Est GFR (MDRD) Non-Af 107, BUN/Creatinine Ratio 13.7, Glucose 141 H, Calcium 9.2, Troponin I High Sens 12, B-Natriuretic Peptide 101.6 H, Procalcitonin < 0.04 08/06/23 06:00: WBC 10.5, RBC 4.28 L, Hgb 13.3, Hct 45.6, MCV 106.5 H, MCH 31.1, MCHC 29.2 L, RDW Std Deviation 50.1 H, RDW Coeff of Valerie 12.7, Plt Count 187, MPV 10.5, Immature Gran % (Auto) 1.000 H, Neut % (Auto) 91.5 H, Lymph % (Auto) 6.1 L , Treasure % (Auto) 1.0, Eos % (Auto) 0.0, Baso % (Auto) 0.4, Absolute Neuts (auto) 9.6 H, Absolute Lymphs (auto) 0.64 L, Nucleated RBC % 0, Hemoglobin A1c 5.3 08/06/23 06:30: Sodium 138, Potassium 4.6, Chloride 95 L, Carbon Dioxide 43.0 H, Anion Gap 0 L, BUN 10, Creatinine 0.80, Estim Creat Clear Calc 115.86, Est GFR (MDRD) Af Amer 130, Est GFR (MDRD) Non-Af 107, BUN/Creatinine Ratio 12.5, Glucose 162 H, Calcium 9.3, Total Bilirubin 0.30, AST 22, ALT 27, Alkaline Phosphatase 108, Total Protein 7.9, Albumin 3.5, Globulin 4.4 H, Albumin/Globulin Ratio 0.8 L Micro: Microbiology 08/05/23 23:06 Mucosa - Nasopharyngeal Coronavirus COVID-19 PCR - Final 08/05/23 23:06 Mucosa - Nasopharyngeal Respiratory Panel (PCR) - Final ABG Data ABG results: ABG 08/05/23 08/05/23 08/05/23 21:47 21:47 21:47 Specimen Type PAPITO Sample Site Puncture Site Cancelled pH pCO2 Cancelled Bicarbonate Actual Total CO2 Base Excess O2 Saturation O2 % 40.0 ABG pCO2 ABG pO2 Tal Test VBG pH Cancelled 7.24 L VBG pO2 Cancelled 77 H VBG HCO3 Cancelled VBG Total CO2 VBG O2 Sat (Calc) VBG O2 Content VBG Base Excess POC Mix VBG pCO2 Pt Tmp Respiration Rate O2 Delivery Device FiO2 % FiO2 (liters per min) Tidal Volume POC PEEP EPAP Crit Call To/Read Back Blood Gas Notified Whom Blood Gas Notified Time Clinical Comments 08/05/23 08/05/23 08/05/23 21:47 21:47 21:47 Specimen Type Sample Site Puncture Site pH pCO2 Bicarbonate Actual Total CO2 Base Excess O2 Saturation O2 % ABG pCO2 ABG pO2 Tal Test VBG pH VBG pO2 VBG HCO3 51 H VBG Total CO2 > 50 H VBG O2 Sat (Calc) Cancelled 90 H VBG O2 Content Cancelled VBG Base Excess Cancelled 23 H POC Mix VBG pCO2 Pt Tmp 118.7 H* Respiration Rate 12 O2 Delivery Device BiPAP FiO2 % Cancelled FiO2 (liters per min) Cancelled Tidal Volume 500.0 POC PEEP EPAP 8 Crit Call To/Read Back Yes Blood Gas Notified Whom ED Blood Gas Notified Time 2146 Clinical Comments AVAPS 500 08/06/23 02:48 Specimen Type ART Sample Site R Radial Puncture Site pH 7.33 L pCO2 Bicarbonate Actual 41.5 H Total CO2 44 Base Excess 16 H O2 Saturation 96 O2 % 35.0 ABG pCO2 78.0 H* ABG pO2 91 Tal Test N/A VBG pH VBG pO2 VBG HCO3 VBG Total CO2 VBG O2 Sat (Calc) VBG O2 Content VBG Base Excess POC Mix VBG pCO2 Pt Tmp Respiration Rate 12 O2 Delivery Device BiPAP FiO2 % FiO2 (liters per min) Tidal Volume 450.0 POC PEEP 8 EPAP Crit Call To/Read Back Yes Blood Gas Notified Whom White Blood Gas Notified Time Clinical Comments Rhythm Strip Rhythm Strip: Sinus Rhythm Rate: 97 Ectopy: None Radiology Impression Chest X-Ray 08/05/23 22:04 IMPRESSION: COPD with evidence of chronic pulmonary arterial hypertension. Electronically Signed: Ankit Chauhan MD at 23:55 EDT , Charges/Coding Procedures Hospitalists Procedures: 12625 Critial Care 1st Hr
--- NOTE | 2023-08-06 12:03 | VDLE_ITS ---
Reason For Study: BLE Swelling RIGHT LEFT GSV is normal. GSV is normal. CFV is compressible, spontaneous, competent CFV is compressible, spontaneous, phasic, and demonstrates pulsatile venous flow. competent, and demonstrates normal FV is compressible, spontaneous, phasic, augmentation. competent and demonstrates normal FV is compressible, spontaneous, phasic, augmentation. competent and demonstrates normal POP V is compressible, spontaneous, phasic, augmentation. competent and demonstrates normal POP V is compressible, spontaneous, phasic, augmentation. competent and demonstrates normal T/P Trunk is compressible. augmentation. PTV is compressible. T/P Trunk is compressible. RT PerV is compressible. PTV is compressible. Procedure LT PerV is compressible. This is a venous duplex using B-mode, color flow and spectral Doppler. Exam performed in department. The exam was diagnostic. A preliminary report was called and/or faxed to [employer] Responsible for patient. VL/Venous Duplex US - Olaf Extrem Interpretation Summary No evidence for acute deep venous thrombosis bilateral lower extremities with p atent and compressible bilateral great saphenous veins. Pulsatile venous flow is noted wi thin the right common femoral vein suggestive of proximal venous hypertension or obstruction. Clinica l correlation would be appropriate. Ordering Physician: Milena Moses Referring Physician: Chitra Scott Performed By: Valeriy Patten RVT
[2023-08-06] MEDS: Albuterol 2.5 MG/3 ML VIAL.NEB. INHALATION (13:55)
[2023-08-06] MEDS: Montelukast 10 MG Tablet PO (20:28)
[2023-08-07] VITALS (23 sets, daily range): BP systolic 115–146; BP diastolic 64–90; PULSE 51–79; RESP 12–22; TEMP 36.2–36.6; O2SAT 92–99; BMI 45.7
[2023-08-07] MEDS: Albuterol 2.5 MG/3 ML VIAL.NEB. INHALATION (04:21)
[2023-08-07] MEDS: Ipratropium/Albuterol Sulfate 3 ML AMPUL.NEB INHALATION ×4 (07:11→20:19)
[2023-08-07] MEDS: guaiFENesin 1,200 MG Tablet 1200 MG PO ×2 (08:29→23:02)
[2023-08-07] MEDS: Metoprolol Tartrate 50 MG Tablet PO ×2 (08:29→23:01)
[2023-08-07] MEDS: Spironolactone 25 MG Tablet PO ×2 (08:29→22:57)
[2023-08-07] MEDS: Losartan Potassium 25 MG Tablet PO (08:29)
[2023-08-07] MEDS: Sertraline 100 MG Tablet PO (08:29)
[2023-08-07] MEDS: Furosemide 40 MG Tablet PO (08:29)
[2023-08-07] MEDS: buPROPion (XL) 150 MG TABLET.XL PO (08:30)
[2023-08-07] MEDS: Loratadine 10 MG Tablet PO (08:30)
[2023-08-07] MEDS: APIXABAN 5 MG TABLET PO ×2 (08:30→23:02)
--- NOTE | 2023-08-07 11:39 | PN.HOSP_ITS ---
Subjective Subjective Doing well, had to wear his BiPAP overnight continuously still fairly short of breath and pulse oximetry dropping to his BiPAP off Objective Data Objective Data Vital Signs: Vital Signs Temp Pulse Resp BP Pulse Ox O2 Del Method O2 Flow Rate 97.3 F L 67 19 H 136/82 H 96 Nasal Cannula 4 08/07/23 08:21 08/07/23 08:29 08/07/23 08:21 08/07/23 08:29 08/07/23 08:21 08/07/23 08:21 08/07/23 08:21 FiO2 30 08/07/23 07:00 Oxygen Flow Rate (L/min) 4 Oxygen Delivery Method Nasal Cannula Weight: 337 lb 4.916 oz Body Mass Index (BMI) 45.7 Intake & Output: Intake and Output for Last 24 Hours 08/06/23 08/07/23 08/08/23 03:59 03:59 03:59 Intake Total 1270 / 1270 Output Total 925 / 1325 900 / 900 Balance 345 / -55 -900 / -900 Lab / Micro Data 08/06/23 06:00 08/06/23 06:30 Micro: Microbiology 08/06/23 11:00 Sputum, Expectorated/Coughed Gram Stain - Final 08/05/23 23:06 Mucosa - Nasopharyngeal Coronavirus COVID-19 PCR - Final 08/05/23 23:06 Mucosa - Nasopharyngeal Respiratory Panel (PCR) - Final Radiography Diagnostic Testing: Radiology Impression Venous Doppler Study 08/06/23 12:03 Interpretation Summary No evidence for acute deep venous thrombosis bilateral lower extremities with patent and compressible bilateral great saphenous veins. Pulsatile venous flow is noted within the right common femoral vein suggestive of proximal venous hypertension or obstruction. Clinical correlation would be appropriate. Ordering Physician: Milena Moses Referring Physician: Chitra Scott Performed By: Valeriy Patten RVT Rhythm Strip Rhythm Strip: Sinus Rhythm Rate: 97 Ectopy: None Physical Exam Narrative General: Alert but drowsy, cooperative, No apparent distress HEENT: Atraumatic, PERRLA, EOMI, Normocephalic Oral: Moist Mucosa Neck: Supple, No JVD Lungs: Diminished, poor air movement, No rhonchi, No wheeze, No rales Cardiovascular: Regular rate, Regular Rhythm, Normal S1, Normal S2, No murmurs Abdomen: Soft, Non Tender, Non-Distended, No Hepato-splenomegaly Extremities: No edema, Capillary Refill Less than 3 Seconds Skin: No rashes, No breakdown Musculoskeletal: No Tenderness to Palpation of Joints or Extremities Neurological: Moves all extremities, Sensory exam intact to light touch and pain Psych/Mental Status: Flat affect, drowsy Assessment & Plan Assessment/Plan (1) Acute exacerbation of chronic obstructive pulmonary disease: PLAN: Plan #1. Acute Encephalopathy secondary to Acute Hypoxic Respiratory Failure on Chronic secondary to Acute on Chronic Severe COPD/Asthma with respiratory acidosis, complicated by underlying pulmonary hypertension: Will admit to the ICU given encephalopathy associated, continue BIPAP VBG obtained in the ED with plan repeat in 1 hour following ICU transition, will consult information clerk cashier per ICU protocol, will once able transition to NC oxygen with wean as tolerated to home oxygen supplementation, continue ATC duonebs, PRN albuterol, IV methylpre dnisolone, HOB, IS parameters, will obtain sputum Cx, respiratory viral panel, COVID PCR, procalcitonin, will hold on immediately abx therapy but low threshold to add if appropriate. 08/06/2023: Appreciate information clerk cashier assistance, continue with the BiPAP he does appear to be improving though slowly can always repeat an ABG in a few hours to see if her making headway with his PCO2 08/07/2023: Continue with steroids and breathing treatments, bicarb is slowly improving. Venous duplex is negative for DVT #2. HTN/HLD/history of chronic diastolic CHF with pulmonary hypertension: 01/30/2023 echocardiogram with normal LV systolic function, EF 65%, mildly dilated RV, mildly enlarged LA, trivial MVI, trivial TVI, RVSP at that point technically difficult to obtain, no evidence of diastolic dysfunction. Presentation with troponin 12, BNP 102.6, will continue Eliquis, torsemide, spironolactone, metopr olol, losartan home regimen, not on statin therapy, defer to outpatient. 08/06/2023: We will continue to monitor and make adjustments to his medications as necessary #3. Morbid Obesity: Weight loss and lifestyle changes encouraged. #4. Anxiety and depression: We will continue patient home sertraline and Wellbutrin regimen. #5. History VTE: Patient with history of pulmonary emboli, DVT, will continue Eliquis home regimen however if oral intake unsafe is noted may need in the interim to consider transition to therapeutic Lovenox versus heparin drip. #6. Tobacco Abuse: Encouraged cessation, inpatient consultation per RT, NR if desired. #7. Allergic rhinitis: We will continue patient home cetirizine regimen as well as montelukast regimen. #8. LAYLA: Uses BiPAP nightly, placing given acute presentation as noted. DVT: Eliquis Charges/Coding Visit Charges Inpatient E&M: 66962 Subs Hosp L2
--- NOTE | 2023-08-07 13:55 | PN.CC_ITS ---
Assessment & Plan Assessment/Plan (1) Acute respiratory acidosis: (2) Acute exacerbation of chronic obstructive pulmonary disease: (3) Stage 4 very severe COPD by GOLD classification: PLAN: Plan Assessment 1 acute on chronic hypoxic and hypercapnic aspiratory failure 2 COPD exacerbation 3 stage IV COPD 4 chronic hypoxic respiratory failure current on 4 L nasal cannula at home 5 Morbid obesity BMI 46 6 history of DVT/PE noncompliant with Eliquis 7 LAYLA on home noninvasive vent Plan * Much improved this morning. He is back to his baseline. He continues to use BiPAP at night * Patient has had repeated exacerbations most recently in May. He was referred to [facility] for evaluation for lung transplant recently in June given his severe COPD * Continue breathing treatments. Started steroid taper * Chest x-ray is clear there is no fever or elevated white count, continue to hold antibiotics. Viral panel is negative * Unclear trigger for COPD exacerbation. Patient is supposed to be on Eliquis for history of DVT/PE. He reports that he missed a couple of doses. Lateral lower extremity DVT scan was negative * Continue to use AVAPS during sleeping hours. He is tolerating nasal cannula being today at his baseline O2 requirements * PT/OT * To transfer out of ICU he may be able to be discharged within a day or 2 with steroid taper Subjective Subjective Patient is doing better. He wore his BiPAP at night. He is back to his baseline oxygen Objective Data Objective Data Vital Signs: Vital Signs Temp Pulse Resp BP Pulse Ox O2 Del Method O2 Flow Rate 36.2 C L 68 16 115/64 97 Bi-pap 4 08/07/23 13:14 08/07/23 13:14 08/07/23 13:14 08/07/23 13:14 08/07/23 13:14 08/07/23 13:24 08/07/23 08:21 FiO2 30 08/07/23 13:24 Oxygen Flow Rate (L/min) 4 Oxygen Delivery Method Bi-pap Weight: 153 kg Body Mass Index (BMI) 45.7 Intake & Output: Intake and Output for Last 24 Hours 08/05/23 08/06/23 08/07/23 23:59 23:59 23:59 Intake Total 1270 / 1270 Output Total 675 / 925 1850 / 1850 Balance 595 / 345 -1850 / -1850 Lab / Micro Data 08/06/23 06:00 08/06/23 06:30 Micro: Microbiology 08/06/23 11:00 Sputum, Expectorated/Coughed Gram Stain - Final 08/05/23 23:06 Mucosa - Nasopharyngeal Coronavirus COVID-19 PCR - Final 08/05/23 23:06 Mucosa - Nasopharyngeal Respiratory Panel (PCR) - Final Radiography Diagnostic Testing: Radiology Impression Venous Doppler Study 08/06/23 12:03 Interpretation Summary No evidence for acute deep venous thrombosis bilateral lower extremities with patent and compressible bilateral great saphenous veins. Pulsatile venous flow is noted within the right common femoral vein suggestive of proximal venous hypertension or obstruction. Clinical correlation would be appropriate. Ordering Physician: Milena Moses Referring Physician: Chitra Scott Performed By: Valeriy Patten RVT Rhythm Strip Rhythm Strip: Sinus Rhythm Rate: 97 Ectopy: None Physical Exam Narrative General alert oriented in no acute distress HEENT. Normocephalic atraumatic, pupils equal and reactive Respiratory reduced air entry bilaterally, no wheeze, no crackles Cardiac S1-S2, regular rate and rhythm GI abdomen soft and nontender MSK +1 lower extremity edema Skin no rashes Neuro moves all extremities, no dysarthria, no facial droop Charges/Coding Visit Charges Inpatient E&M: 02430 Subs Hosp L3
[2023-08-07] MEDS: Methylprednisolone Sod Succ 40 MG/ML VIAL IV (22:52)
[2023-08-07] MEDS: Montelukast 10 MG Tablet PO (22:57)
[2023-08-08] VITALS (11 sets, daily range): BP systolic 149–152; BP diastolic 77–86; PULSE 68–86; RESP 12–22; TEMP 36.5–36.9; O2SAT 90–97; BMI 45.3
[2023-08-08] MEDS: Albuterol 2.5 MG/3 ML VIAL.NEB. INHALATION (04:24)
[2023-08-08] MEDS: Ipratropium/Albuterol Sulfate 3 ML AMPUL.NEB INHALATION ×3 (07:43→14:55)
[2023-08-08] MEDS: predniSONE 20 MG Tablet 40 MG PO (09:13)
[2023-08-08] MEDS: Spironolactone 25 MG Tablet PO (09:13)
[2023-08-08] MEDS: Loratadine 10 MG Tablet PO (09:13)
[2023-08-08] MEDS: APIXABAN 5 MG TABLET PO (09:14)
[2023-08-08] MEDS: Furosemide 40 MG Tablet PO (09:14)
[2023-08-08] MEDS: Metoprolol Tartrate 50 MG Tablet PO (09:14)
[2023-08-08] MEDS: Losartan Potassium 25 MG Tablet PO (09:14)
[2023-08-08] MEDS: guaiFENesin 1,200 MG Tablet 1200 MG PO (09:15)
--- NOTE | 2023-08-08 10:38 | PCM.DC ---
Discharge Instructions Diet Discharge Diet: Low fat / Low cholesterol, 2000 Calorie Control Diet and Carb Control Diet Activity Discharge Activity: Return to Normal Activity Dressing / Incision Call your doctor if you observe: Fever of 101 or Higher, Shortness of breath, Dizziness, Fainting spells, Swelling in the ankles, Chest pain and Increased palpitations (irregular heartbeat) Follow Up Care Test Results: Test results from this visit will be discussed in further detail at your follow-up appointment, if applicable. Discharge Plan Admission Admit Date/Time: 08/05/23 22:44 Attending Provider: Jer Graham Primary Care Provider: Chitra Scott Consulting Providers: Tay Benavides; Reece Fernandes; Milena Moses; Eloy Jaimes; Samson Gaines; Alesia Morales NP; Alyssa Escobar Discharge Orders/Prescriptions Prescriptions: New prednisone 10 mg tablet 40 mg PO BREAKFAST Qty: 42 0RF Rx Instructions: Take 4 daily for 4 days then 3 daily for 4 days then 2 daily for 4 days then 1 daily for 4 days then half tab daily for 4 days Continued sertraline 100 mg tablet 100 mg PO DAILY Eliquis 5 mg tablet 5 mg PO BID Qty: 60 11RF Rx Instructions: 10 mg (2 TAB) twice daily for 7 days and then 5 mg (1 TAB) twice daily to continue. DVT/PE dose budesonide 1 mg/2 mL suspension for nebulization 1 mg inhalation BID Qty: 60 11RF spironolactone 25 MG tablet 25 mg PO BID Patient Comments: WATER PILL bupropion HCl [Wellbutrin XL] 150 mg Tablet Extended Release 24 Hr 150 mg PO DAILY acetaminophen 500 mg Tablet 1,000 mg PO Q6H PRN (Reason: Pain) cyanocobalamin (vitamin B-12) 500 MCG tablet 500 mcg PO DAILY Nucala 100 mg/mL auto-injector 300 mg subcut Q4W Rx Instructions: administer as three 100 mg injections at separate sites torsemide 20 mg tablet 20 mg PO BID Qty: 60 2RF guaifenesin 1,200 MG tablet extended release 12hr 1,200 mg PO Q12H PRN (Reason: Cough) Qty: 14 0RF losartan 25 mg tablet 25 mg PO DAILY Qty: 30 1RF furosemide 40 mg tablet 40 mg PO DAILY Patient Comments: TAKE 1 TABLET BY MOUTH EVERY DAY NEEDED Men's 50 Plus Multivitamin 400-20-370 mcg Tablet 1 tab PO DAILY tramadol 50 mg tablet 50 mg PO Q4H PRN PRN (Reason: Pain) 3 Days Qty: 20 0RF metoprolol tartrate 50 mg tablet 50 mg PO BID Patient Comments: TAKE 1 TABLET BY MOUTH TWICE A DAY cholecalciferol (vitamin D3) 125 mcg (5,000 unit) tablet,disintegrating 125 mcg PO .every other day montelukast [Singulair] 10 mg tablet 10 mg PO QPM Qty: 30 5RF ipratropium-albuterol 0.5 mg-3 mg(2.5 mg base)/3 mL solution for nebulization 3 ml INHALATION Q4H PRN (Reason: Wheezing) Qty: 360 6RF albuterol sulfate 2.5 mg /3 mL (0.083 %) solution for nebulization 2.5 mg INHALATION Q4H PRN (Reason: shortness of breath or wheezing) Qty: 360 6RF albuterol sulfate [Ventolin HFA] 90 mcg/actuation HFA aerosol inhaler 2 puff INHALATION Q4H PRN (Reason: shortness of breath or wheezing) Qty: 18 6RF cetirizine 10 mg tablet 10 mg PO DAILY Qty: 90 3RF Referrals / Follow Up: Chitra Scott NP-C [Primary Care Provider] - 08/15/23 1:40 pm (This appt is in her [place], [place] office. ) Disposition Disposition (needs filled in before D/C Order can be placed): Home Health Service
[2023-08-08] MEDS: Methylprednisolone Sod Succ 40 MG/ML VIAL IV (11:01)
[2023-08-08] MEDS: buPROPion (XL) 150 MG TABLET.XL PO (11:01)
[2023-08-08] MEDS: Sertraline 100 MG Tablet PO (11:02)
[2023-08-08] MEDS: 0.9% Saline Lock 10 ML Syringe IV (11:02)
--- NOTE | 2023-08-08 14:23 | CASEMGMT ---
Patient has order for discharge. FINA BLAKELY in to discuss needs at discharge. Patient denies needs at this time. FINA BLAKELY informed patient that [facility] will be contacting him to discuss resumption of care Patient states his is bringing his oxygen tank in the car for discharge. Patient has no further questions/concerns at this time. Alma ZUNIGA, RN, CM
--- NOTE | 2023-08-08 15:01 | DS.PCM_ITS ---
Providers Date of Admission: 08/05/23 Primary Care Physician: CLAYTON Monroy Consultations 08/06/23 00:56 Consult: Flight Engineer Instructor / Pulmonary Medicine Routine Consulting Provider: Pulmonary Medicine marybel Davin Reason for Consult: COPD exacerbation, Resp failure acute on chronic EMERGENT Consult: No MD Notified: Yes Date Notified: 08/05/23 Time Notified: 23:28 Method of Notification: Text Reason For Visit: RESP FAILURE, COPD EXAC Diagnosis Discharge Diagnosis (1) Acute respiratory acidosis: Status: Acute Code(s): J96.02 - Acute respiratory failure with hypercapnia (2) Acute exacerbation of chronic obstructive pulmonary disease: Status: Chronic Code(s): J44.1 - Chronic obstructive pulmonary disease with (acute) exacerbation (3) Stage 4 very severe COPD by GOLD classification: Status: Chronic Code(s): J44.9 - Chronic obstructive pulmonary disease, unspecified Medications at Discharge Home Medications spironolactone 25 mg tablet 25 mg PO BID bp 12/02/15 bupropion HCl 150 mg 24 hr tablet, extended release (Wellbutrin XL) 150 mg PO DAILY mental health 10/11/21 acetaminophen 500 mg tablet 1,000 mg PO Q6H PRN Pain 11/04/21 cyanocobalamin (vitamin B-12) 500 mcg tablet 500 mcg PO DAILY SUPPLEMENT 11/08/21 sertraline 100 mg tablet 100 mg PO DAILY mental health 01/23/22 montelukast 10 mg tablet (Singulair) 10 mg PO QPM COPD #30 tabs 06/30/22 mepolizumab 100 mg/mL subcutaneous auto-injector (Nucala) 300 mg subcut Q4W asthma 11/05/22 guaifenesin 1,200 mg tablet, extended release 12 hr 1,200 mg PO Q12H PRN Cough #14 tabs 11/08/22 losartan 25 mg tablet 25 mg PO DAILY blood pressure #30 tabs 11/08/22 torsemide 20 mg tablet 20 mg PO BID diuretic #60 tabs 11/08/22 furosemide 40 mg tablet 40 mg PO DAILY FLUID 01/01/23 [id number] acid-vit K-lycop 400 mcg-20 mcg-370 mcg tablet (Men's 50 Plus Multivitamin) 1 tab PO DAILY SUPPLEMENT 01/01/23 ipratropium 0.5 mg-albuterol 3 mg (2.5 mg base)/3 mL nebulization soln 3 ml inhalation Q4H PRN Wheezing #360 mL 03/13/23 tramadol 50 mg tablet 50 mg PO Q4H PRN PRN Pain 3 days #20 tabs 05/14/23 albuterol sulfate 2.5 mg/3 mL (0.083 %) solution for nebulization 2.5 mg (3 mL) inhalation Q4H PRN shortness of breath or wheezing #360 mL 05/23/23 albuterol sulfate 90 mcg/actuation aerosol inhaler (Ventolin HFA) 2 puff in halation Q4H PRN shortness of breath or wheezing #18 grams 05/23/23 cetirizine 10 mg tablet 10 mg PO DAILY allergies #90 tabs 05/30/23 metoprolol tartrate 50 mg tablet 50 mg PO BID bp 06/10/23 apixaban 5 mg tablet (Eliquis) 5 mg PO BID #60 tabs 07/10/23 budesonide 1 mg/2 mL suspension for nebulization 1 mg (2 mL) inhalation BID breathing #60 mL 07/10/23 cholecalciferol (vitamin D3) 125 mcg (5,000 unit) disintegrating tablet 125 mcg PO .every other day vitamin 08/05/23 prednisone 10 mg tablet 40 mg (4 x 10 mg) PO BREAKFAST #42 tabs 08/08/23 Hospital Course Operations None Procedures - (Venous Doppler) Summary of Care Provided Minutes Spent on Discharge: 37 Hospital Course: Per HPI: The patient is a 52 y/o M w/ PMHx: Morbid obesity, Anxiety and Depression, LAYLA on BIPAP q HS, HTN, HLD, Chronic Severe COPD/Asthma with Chronic Hypoxic Respiratory Failure (4L NC), Tobacco use (1-2 cig still/week), Hx PE, Pulmonary HTN who [facility] with history of progressively worsening dyspnea starting approximately 615 with mild URI type symptoms with rhinorrhea with pulse oximeter noted to be 50% on 3 L prompting to pronate up to 7 L however he only maintained 80% with no recent fevers or chills but given symptoms and worsening respiratory status prompted ED immediate evaluation. 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 Given his history they presented earlier for evaluation and initially he was up and able to walk to EMS but worsened in the ED and more encephalopathic. Work-up in the ED included T97, heart 96, BP 165/17, respiratory 17, initially 88% on 6 L nasal cannula with most recent oxygen usage noted to be 4 L nasal cannula on 07/10/2023 eventually placed on BiPAP with 40% FiO2, VBG with pH 7.24, P O2 77, bicarb 51, CO2 total greater than 50, saturation 90%, POC mixed VBG PCO2 118.7 performed on BiPAP, CBC with WC 12.3, human 13.1, platelet 217 with left shift, BMP with chl oride 94, carbon oxide greater than 45, glucose 141, troponin 12, BNP 102.6, chest x-ray with no acute cardiopulmonary findings, EKG SR with RBBB rate 97 unchanged from prior. In the ED patient administered Solu-Medrol 125 mg IV x1, DuoNeb and albuterol therapies. Hospital Course: 1. Acute encephalopathy secondary to acute on chronic hypoxic respiratory failure secondary to acute on chronic severe COPD/asthma exacerbation with respiratory acidosis and pulmonary hypertension?52-year-old male who is currently being evaluated at [facility] for possible lung transplant presented to the hospital with acute hypoxic respiratory failure. He states that he generally needs 3 L at rest and 8 L with ambulation on presentation here in the hospital he needed to be placed on BiPAP and was close to requiring intubation. He was started on breathing treatments as well as steroids and evaluated by pulmonology. He ultimately improved present therapy he went into the with pul monology they felt that he was stable for discharge today. I did have an ambulatory pulse ox done prior to discharge and he was maintaining his oxygen saturations on 8 L nasal cannula with ambulation which is his home-going need and then was maintaining his oxygen saturations on 3 L nasal cannula at rest which is also his baseline. Will place him on a very slow 20-day steroid taper on discharge. I do recommend that he follow-up with his PCP as well as his parimutuel clerk in the next 1 to 2 weeks. 2. Hypertension, hyperlipidemia, history of chronic diastolic CHF with pulmonary hypertension, history of DVT, morbid obesity, anxiety, depression, LAYLA are all chronic medical conditions which complicate his care. His home medications were continued where appropriate Physical Exam Narrative General: Alert, oriented x3, cooperative, No apparent distress HEENT: Atraumatic, PERRLA, EOMI, Normocephalic Oral: Moist Mucosa Neck: Supple, No JVD Lungs: Diminished, poor air movement, No rhonchi, No wheeze, No rales Cardiovascular: Regular rate, Regular Rhythm, Normal S1, Normal S2, No murmurs Abdomen: Soft, Non Tender, Non-Distended, No Hepato-splenomegaly Extremities: Trace edema, Capillary Refill Less than 3 Seconds Skin: No rashes, No breakdown Musculoskeletal: No Tenderness to Palpation of Joints or Extremities Neurological: Moves all extremities, Sensory exam intact to light touch and pain Psych/Mental Status: Flat affect Weight / BMI Weight Weight: 334 lb 3.532 oz Body Mass Index (BMI) 45.3 ABG / Lab / Microbiology Data 08/06/23 06:00 08/06/23 06:30 Microbiology: Microbiology 08/06/23 11:00 Sputum, Expectorated/Coughed Gram Stain - Final 08/06/23 11:00 Sputum, Expectorated/Coughed Respiratory Culture - Final Mixed normal respiratory seng. No Streptococcus pneumoniae, beta-hemolytic Streptococcus or Staphylococcus aureus isolated. 08/05/23 23:06 Mucosa - Nasopharyngeal Coronavirus COVID-19 PCR - Final 08/05/23 23:06 Mucosa - Nasopharyngeal Respiratory Panel (PCR) - Final D/C Instructions Discharge Diet: Low fat / Low cholesterol, 2000 Calorie Control Diet and Carb Control Diet Call your doctor if you observe: Fever of 101 or Higher, Shortness of breath, Dizziness, Fainting spells, Swelling in the ankles, Chest pain and Increased palpitations (irregular heartbeat) Meaningful Use Info Meaningful Use Diagnoses (Choose all that apply): None applicable Discharge Plan Admission Admit Date/Time: 08/05/23 22:44 Attending Provider: Jer Graham Primary Care Provider: Chitra Scott Consulting Providers: Tay Benavides; Reece Fernandes; Milena Moses; Eloy Jaimes; Samson Gaines; Alesia Morales [employer]AT SANDER; Alyssa Escobar Discharge Orders/Prescriptions Prescriptions: New prednisone 10 mg tablet 40 mg PO BREAKFAST Qty: 42 0RF Rx Instructions: Take 4 daily for 4 days then 3 daily for 4 days then 2 daily for 4 days then 1 daily for 4 days then half tab daily for 4 days Continued sertraline 100 mg tablet 100 mg PO DAILY Eliquis 5 mg tablet 5 mg PO BID Qty: 60 11RF Rx Instructions: 10 mg (2 TAB) twice daily for 7 days and then 5 mg (1 TAB) twice daily to continue. DVT/PE dose budesonide 1 mg/2 mL suspension for nebulization 1 mg inhalation BID Qty: 60 11RF spironolactone 25 MG tablet 25 mg PO BID Patient Comments: WATER PILL bupropion HCl [Wellbutrin XL] 150 mg Tablet Extended Release 24 Hr 150 mg PO DAILY acetaminophen 500 mg Tablet 1,000 mg PO Q6H PRN (Reason: Pain) cyanocobalamin (vitamin B-12) 500 MCG tablet 500 mcg PO DAILY Nucala 100 mg/mL auto-injector 300 mg subcut Q4W Rx Instructions: administer as three 100 mg injections at separate sites torsemide 20 mg tablet 20 mg PO BID Qty: 60 2RF guaifenesin 1,200 MG tablet extended release 12hr 1,200 mg PO Q12H PRN (Reason: Cough) Qty: 14 0RF losartan 25 mg tablet 25 mg PO DAILY Qty: 30 1RF furosemide 40 mg tablet 40 mg PO DAILY Patient Comments: TAKE 1 TABLET BY MOUTH EVERY DAY NEEDED Men's 50 Plus Multivitamin 400-20-370 mcg Tablet 1 tab PO DAILY tramadol 50 mg tablet 50 mg PO Q4H PRN PRN (Reason: Pain) 3 Days Qty: 20 0RF metoprolol tartrate 50 mg tablet 50 mg PO BID Patient Comments: TAKE 1 TABLET BY MOUTH TWICE A DAY cholecalciferol (vitamin D3) 125 mcg (5,000 unit) tablet,disintegrating 125 mcg PO .every other day montelukast [Singulair] 10 mg tablet 10 mg PO QPM Qty: 30 5RF ipratropium-albuterol 0.5 mg-3 mg(2.5 mg base)/3 mL solution for nebulization 3 ml INHALATION Q4H PRN (Reason: Wheezing) Qty: 360 6RF albuterol sulfate 2.5 mg /3 mL (0.083 %) solution for nebulization 2.5 mg INHALATION Q4H PRN (Reason: shortness of breath or wheezing) Qty: 360 6RF albuterol sulfate [Ventolin HFA] 90 mcg/actuation HFA aerosol inhaler 2 puff INHALATION Q4H PRN (Reason: shortness of breath or wheezing) Qty: 18 6RF cetirizine 10 mg tablet 10 mg PO DAILY Qty: 90 3RF Referrals / Follow Up: Chitra Scott NP-C [Primary Care Provider] - 08/15/23 1:40 pm (This appt is in her [place], [place] office. ) Disposition Disposition (needs filled in before D/C Order can be placed): Home Health Service Charges/Coding Visit Charges Inpatient E&M: 92141 Disch Hosp >30min
--- NOTE | 2023-08-08 19:30 | NURSING ---
Received call from Dr. Graham @ approx. 1500. Asked about pt.'s walking SpO2 trail that showed pt.'s SpO2 @ 90% on 8l. I explained that while walking, pt's SpO2 was in the mid 90's, but once he sat down it dropped down to 90 for approx. 1-2 min., then went back up to mid 90's. I told that pt. stated this is normal for him and that he checks his SpO2 regularly. Once i explained this, stated that since this is his baseline, he felt comfortable continuing with discharge.
== END 2023-08-08 16:23 | disposition home health service (06) | DRG 189 ==
LOC: ED 22:36 → ICU 08-06 06:49 → PCU 08-08 11:10
PROVIDERS: Admitting Provider Family Medicine; Emergency Provider Emergency Medicine; PCP Nurse Practitioner Family; Visit Provider Family Medicine
DX: J96.21 Acute and chronic respiratory failure with hypoxia (principal); G93.41 Metabolic encephalopathy; J44.1 Chronic obstructive pulmonary disease with (acute) exacerbation; J45.51 Severe persistent asthma with (acute) exacerbation; I50.32 Chronic diastolic (congestive) heart failure; Z68.42 Body mass index [BMI] 45.0-49.9, adult; I27.20 Pulmonary hypertension, unspecified; I11.0 Hypertensive heart disease with heart failure; E66.01 Morbid (severe) obesity due to excess calories; F32.A Depression, unspecified; E78.5 Hyperlipidemia, unspecified; F17.210 Nicotine dependence, cigarettes, uncomplicated; F41.9 Anxiety disorder, unspecified; G47.33 Obstructive sleep apnea (adult) (pediatric); R73.9 Hyperglycemia, unspecified; Z91.148 Patient's other noncompliance with medication regimen for other reason; T45.516A Underdosing of anticoagulants, initial encounter; Z99.81 Dependence on supplemental oxygen; Z79.01 Long term (current) use of anticoagulants; Z79.51 Long term (current) use of inhaled steroids; Z79.899 Other long term (current) drug therapy; Z86.711 Personal history of pulmonary embolism
CPT/HCPCS: 36600; 71045; 80048; 80053; 82803; 83036; 83880; 84145; 84484; 85025; 87070; 87205; 87633; 87635; 93005; 93970; 94002; 94003; 94640; 94762; 97802; 99285; A4216

== ENCOUNTER 2023-10-08 19:00 | Inpatient (IN) | payer MEDICARE, SELFPAY ==
[2023-10-08 19:01] VITALS: BP 179/102; PULSE 113; RESP 28; TEMP 36.4; O2SAT 94
[2023-10-08 20:10] VITALS: BMI 45.8
--- NOTE | 2023-10-08 20:17 | EKG12_ITS ---
Test Reason : SOB Blood Pressure : / mmHG Vent. Rate : 103 BPM Atrial Rate : 103 BPM P-R Int : 180 ms QRS Dur : 110 ms QT Int : 372 ms P-R-T Axes : 089 087 049 degrees QTc Int : 487 ms Sinus tachycardia Low voltage QRS Incomplete right bundle branch block T wave abnormality, consider anterior ischemia Abnormal ECG Confirmed by INES STEVENS, ADRY ([id number]), supervising film or videotape editor SHANTI FINE ([id number]) on 10/17/2023 10:07:58 AM Referred By: Confirmed By:ADRY CHACON MD
--- NOTE | 2023-10-08 20:18 | EDS_ITS ---
HPI History of Present Illness Chief Complaint: Shortness of Breath Narrative Narrative: 52-year-old male past medical history of COPD and chronic respiratory failure, wears 4 L of oxygen at home along with BiPAP, presents with the same symptoms that he usually gets with CO2 retention. His noticed that today he was more confused and somewhat lethargic with a look in his eyes. They state that they are trying to get a BiPAP machine like the one here which usually helps him. He has not received steroids since his admission around 6 weeks ago. Additionally, they state that his CO2 is usually high and they put him on BiPAP and he gets admitted for few days. They present because of the suspicion for CO2 retention and slight mental status change. [facility] Medical History Anxiety and depression BiPAP (biphasic positive airway pressure) dependence Blood disorder Cardiology follow-up encounter Chronic hypoxemic respiratory failure Closed fracture dislocation of joint of left lower extremity Closed fracture of left tibial plateau Congestive heart failure COPD (chronic obstructive pulmonary disease) Former smoker History of echocardiogram History of edema History of pain when walking HTN (hypertension) Hypertension Incarcerated umbilical hernia Obesities, morbid Obesity hypoventilation syndrome On home oxygen therapy LAYLA (obstructive sleep apnea) Other specified injury of left quadriceps muscle, fascia and tendon, initial encounter Pulmonary embolism Seasonal allergies Severe persistent asthma Stage 4 very severe COPD by GOLD classification Tobacco dependence Uses wheelchair Home Medications spironolactone 25 mg tablet 25 mg PO BID bp 12/02/15 [History Last Taken 01/01/23] bupropion HCl 150 mg 24 hr tablet, extended release (Wellbutrin XL) 150 mg PO DAILY mental health 10/11/21 [History Last Taken 01/01/23] acetaminophen 500 mg tablet 1,000 mg PO Q6H PRN Pain 11/04/21 [History Last Taken 11/07/21 20:00] cyanocobalamin (vitamin B-12) 500 mcg tablet 500 mcg PO DAILY SUPPLEMENT 11/08/21 [History Last Taken 01/01/23] sertraline 100 mg tablet 100 mg PO DAILY mental health 01/23/22 [History Last Taken 01/01/23] montelukast 10 mg tablet (Singulair) 10 mg PO QPM COPD #30 tabs 06/30/22 [Rx Last Taken 12/31/22] mepolizumab 100 mg/mL subcutaneous auto-injector (Nucala) 300 mg subcut Q4W asthma 11/05/22 [History Last Taken 12/10/22] guaifenesin 1,200 mg tablet, extended release 12 hr 1,200 mg PO Q12H PRN Cough #14 tabs 11/08/22 [Rx Last Taken 12/31/22] losartan 25 mg tablet 25 mg PO DAILY blood pressure #30 tabs 11/08/22 [Rx Last Taken 01/01/23] torsemide 20 mg tablet 20 mg PO BID diuretic #60 tabs 11/08/22 [Rx Last Taken 12/31/22] furosemide 40 mg tablet 40 mg PO DAILY FLUID 01/01/23 [History Last Taken 12/31/22] [id number]-[id number] acid-vit K-lycop 400 mcg-20 mcg-370 mcg tablet (Men's 50 Plus Multivitamin) 1 tab PO DAILY SUPPLEMENT 01/01/23 [History Last Taken 04/17] ipratropium 0.5 mg-albuterol 3 mg (2.5 mg base)/3 mL nebulization soln 3 ml inhalation Q4H PRN Wheezing #360 mL 03/13/23 [Rx Last Taken Unknown] tramadol 50 mg tablet 50 mg PO Q4H PRN PRN Pain 3 days #20 tabs 05/14/23 [Rx Last Taken Unknown] albuterol sulfate 2.5 mg/3 mL (0.083 %) solution for nebulization 2.5 mg (3 mL) inhalation Q4H PRN shortness of breath or wheezing #360 mL 05/23/23 [Rx Last Taken Unknown] albuterol sulfate 90 mcg/actuation aerosol inhaler (Ventolin HFA) 2 puff inhalation Q4H PRN shortness of breath or wheezing #18 grams 05/23/23 [Rx Last Taken Unknown] cetirizine 10 mg tablet 10 mg PO DAILY allergies #90 tabs 05/30/23 [Rx Last Taken Unknown] metoprolol tartrate 50 mg tablet 50 mg PO BID bp 06/10/23 [History Last Taken Unknown] apixaban 5 mg tablet (Eliquis) 5 mg PO BID #60 tabs 07/10/23 [Rx Last Taken Unknown] cholecalciferol (vitamin D3) 125 mcg (5,000 unit) disintegrating tablet 125 mcg PO .every other day vitamin 08/05/23 [History Last Taken Unknown] prednisone 10 mg tablet 40 mg (4 x 10 mg) PO BREAKFAST #42 tabs 08/08/23 [Rx Last Taken Unknown] budesonide 1 mg/2 mL suspension for nebulization 1 mg (2 mL) inhalation BID breathing #60 mL 08/27/23 [Rx Last Taken Unknown] Allergy/AdvReac Type Severity Reaction Status Date / Time clarithromycin [From Biaxin] Allergy Hives Verified 08/05/23 21:07 Penicillins Allergy Hives Verified 08/05/23 21:07 Family History Mother Diabetes Breast cancer Heart disease Hypertension COPD (chronic obstructive pulmonary disease) Asthma Father Hypertension CVA (cerebral vascular accident) Surgical History History of hernia repair (~08/2018) History of tonsillectomy History of tooth extraction Hx of cardiac cath Social History household members: spouse Smoking Status: Current some day smoker tobacco type: cigarettes how long ago did patient quit smoking: Patient admits to smoking 1 cigarette to 2 cigarettes weekly second hand exposure: Yes quit status: has quit before alcohol intake: never substance use type: does not use ROS ROS ED ROS Narrative Constitutional: No fever, no chills. HEENT: No sore throat. No neck pain. No loss of vision. No rhinorrhea. Cardiovascular: No chest pain. No palpitations. Positive chronic pedal edema. Respiratory: No cough, positive shortness of breath. Abdominal: No abdominal pain. No nausea. No vomiting. Genitourinary: No dysuria. No hematuria. Musculoskeletal: No myalgias. No arthralgias. Neurologic: No headaches. No dizziness. No lightheadedness. Increasing izzy rgy. Mild confusion. Skin: No rash. No change in color. Psychiatric: No depression. No anxiety. EXAM Physical Exam Narrative Exam Narrative: Afebrile. Vital signs noted. HEENT: Normocephalic. Atraumatic. PERRL, EOMI. Neck soft and supple. No point tenderness or step off. Cardiovascular: Regular rate and rhythm. No murmurs, rubs, or gallops appreciated. Respiratory: No tachypnea. Lungs clear to auscultation bilaterally. Decreased breath sounds bilateral bases. Gastrointestinal: Abdomen soft, nontender, with normoactive bowel sounds. No rebound or guarding. Neurological: Awake. Alert. Oriented to person. Nonfocal, nonlateralizing. Skin: No rash. Normal color. No pallor. Musculoskeletal: No pedal edema. Full range of motion extremities. Const Vital Signs: 10/08/23 19:01 10/08/23 20:10 10/08/23 20:24 Temperature 97.5 F L Temperature Source Temporal Pulse Rate 113 H 93 Respiratory Rate 28 H 20 H Respiratory Effort Normal Respiratory Depth Normal Respiratory Pattern Normal Blood Pressure 179/102 H Blood Pressure Mean 127 Pulse Ox 94 Oxygen Delivery Method Nasal Cannula Nasal Cannula Oxygen Flow Rate (L/min) 4 4 Fraction of Inspired Oxygen (FIO2) 10/08/23 20:55 10/08/23 21:00 Temperature Temperature Source Pulse Rate 96 Respiratory Rate 15 Respiratory Effort Respiratory Depth Respiratory Pattern Normal Blood Pressure Blood Pressure Mean Pulse Ox 97 Oxygen Delivery Method Nasal Cannula Oxygen Flow Rate (L/min) 4 Fraction of Inspired Oxygen (FIO2) 35 MDM MDM MDM Narrative Medical decision making narrative: I reviewed the patient's prior records. Suspicion is high for CO2 retention on his chronic respiratory failure. I reviewed his prior records and he has had hypoxia in the past with elevated CO2. In the differential is also pneumonia versus pneumothorax, but history and physical is not supportive of this. He was placed on his nasal cannula oxygen. Additionally, I will obtain a VBG to check his CO2 level before placing him on BiPAP. He was administered a DuoNeb aerosolized treatment and Solu-Medrol 125 mg intravenously. EKG obtained and interpreted by myself independently as sinus tachycardia at 103 bpm without ectopy or acute ST changes. There is baseline artifact noted but no significant change from previous EKG dated August 05, 2023. VBG obtained and he has a pH of 7.324 but a PCO2 of 97.2. He will be placed on BiPAP because of his CO2 retention. I reviewed his laboratory work and he has a slightly elevated white count of 11.2, hemoglobin normal at 13.9, hematocrit 47.2 with normal platelet count of 213. I reviewed his BMP and his chloride is slightly low at 87 which I think is nonspecific, CO2 is greater than 45, in review its been that high in the past, especially when he gets admitted. Glucose appropriately elevated at 133. High-sensitivity troponin is 13. Chest x-ray in 1 view interpreted by myself independently shows no evidence of pneumonia or pneumothorax. I do not feel antibiotics are indicated. I reviewed the radiology report which confirms my independent interpretation. He was placed on BiPAP as review of his venous blood gas did show that hypercapnia. His settings were his home settings of 14/11. His states last time he was admitted and needed to be in the ICU because of the BiPAP settings being so high. I will discuss patient with the hospitalist for admission for his acute on chronic respiratory failure with hypercarbia. Disposition is admit in stable condition. Lab Data Attestation: I reviewed the patient's lab results. Labs: Laboratory Results - last 24 hr 10/08/23 20:52 WBC 11.2 H RBC 4.44 L Hgb 13.9 Hct 47.2 MCV 106.3 H MCH 31.3 MCHC 29.4 L RDW Std Deviation 49.4 H RDW Coeff of Valerie 12.5 Plt Count 213 MPV 10.2 Immature Gran % (Auto) 0.400 Neut % (Auto) 75.1 H Lymph % (Auto) 15.7 L [place] % (Auto) 8.2 Eos % (Auto) 0.2 Baso % (Auto) 0.4 Absolute Neuts (auto) 8.4 H Absolute Lymphs (auto) 1.75 Nucleated RBC % 0 Sodium 137 Potassium 3.8 Chloride 87 L Carbon Dioxide > 45.0 H* Anion Gap TNP BUN 13 Creatinine 0.71 Estim Creat Clear Calc 130.55 Est GFR (MDRD) Af Amer 148 Est GFR (MDRD) Non-Af 122 BUN/Creatinine Ratio 18.3 Glucose 133 H Calcium 8.9 Troponin I High Sens 13 ABG Data ABG results: ABG 10/08/23 20:35 Specimen Type PAPITO Sample Site Not entered O2 % 4.0 VBG pH 7.32 VBG pO2 32 VBG HCO3 51 H VBG O2 Sat (Calc) 50 VBG Base Excess 25 H POC Mix VBG pCO2 Pt Tmp 97.2 H* O2 Delivery Device Cannula Crit Call To/Read Back Yes Blood Gas Notified Whom pippa Blood Gas Notified Time 20:36:49 Radiography Diagnostic Testing: Clinical Impression(s) from Imaging Studies Chest X-Ray 10/08/23 21:25 IMPRESSION: 1. Pulmonary artery enlargement again suggestive of pulmonary artery hypertension. 2. Hyperinflation with diffuse interstitial prominence although no focal pneumonia likely secondary to COPD. Electronically Signed: Dimitris Liang DO at 21:38 EST , Management Discussion w/another healthcare provider: Hospitalist (Dr. Britni Lyons) Discharge Plan Dx/Rx/DC Orders Clinical Impression: Acute on chronic respiratory failure with hypercapnia, Change in mental status, Stage 4 very severe COPD by GOLD classification Disposition Disposition: Acute Care Hospital [facility]
[2023-10-08] MEDS: Ipratropium/Albuterol Sulfate 3 ML AMPUL.NEB INHALATION (20:23)
[2023-10-08 20:24] VITALS: PULSE 93; RESP 20
[2023-10-08] MEDS: MethylPREDNISolone 125 MG/2 ML Vial IV (20:27)
[2023-10-08 20:39] LABS: Blood Gas Specimen Type VEN; O2 Delivery Device Cannula; SITE Not entered; VBG BASE EXCESS 25 mmol/L (-1.0-3.5); VBG Bicarbonate 51 mmol/L (22-26); VBG PO2 32 mmHg (25-40); VBG SO2 50 % (50-70); VBG pCO2 97.2 mmHg (41-51); VBG pH 7.32 (7.32-7.42)
[2023-10-08 21:00] VITALS: PULSE 96; RESP 12; RESP 15; O2SAT 97
[2023-10-08 21:04] LABS: Absolute Lymphocyte Count 1.75 X10^3/uL (0.83-4.51); Absolute Neutrophil Count 8.4 X10^3/uL (2.0-7.7); Basophil# 0.04 X10^3/uL; Basophil% 0.4 % (0-1); Eosinophil# 0.02 X10^3/uL; Eosinophils% 0.2 % (0-5); Hematocrit 47.2 % (40-54); Hemoglobin 13.9 g/dL (13.0-16.5); Lymphocyte # 1.75 X10^3/ul (0.83-4.51); Lymphocyte % 15.7 % (19-41); Mean Corp Hgb Conc 29.4 g/dL (32-36); Mean Corpuscular Hgb 31.3 pg (27.0-32.0); Mean Corpuscular Volume 106.3 fL (80-94); Mean Platelet Vol. 10.2 fl (6.2-12.0); Monocyte# 0.91 X10^3/uL; Monocyte% 8.2 % (0-10); NRBC Flagged by Analyzer 0 % (0-5); Neutrophil % 75.1 % (47-70); Platelet Count 213 K/mm3 (150-450); RBC Distribution Width CV 12.5 % (11.6-14.6); RBC Distribution Width SD 49.4 fl (35.1-43.9); Red Blood Count 4.44 M/mm3 (4.6-6.2); White Blood Count 11.2 K/mm3 (4.4-11.0)
--- NOTE | 2023-10-08 21:25 | RAD_ITS ---
EXAM: XR CHEST, 1 VIEW CLINICAL INDICATION: shortness of breath TECHNIQUE: Frontal view of the chest. COMPARISON: 08/05/2023 FINDINGS: LUNGS AND PLEURAL SPACES: Pulmonary artery enlargement again suggestive of pulmonary artery hypertension. Hyperinflation with diffuse interstitial prominence although no focal pneumonia likely secondary to COPD. No pneumothorax. No effusion. HEART: No significant abnormality. Cardiac silhouette not enlarged. MEDIASTINUM: Central airways and mediastinal contour are unremarkable. BONES/JOINTS: No significant abnormality. SOFT TISSUES: No significant abnormality. RAD/Chest 1 View (Portable) IMPRESSION: 1. Pulmonary artery enlargement again suggestive of pulmonary artery hypertension. 2. Hyperinflation with diffuse interstitial prominence although no focal pneumonia likely secondary to COPD. Electronically Signed: Dimitris Liang DO at 21:38 EST ,
[2023-10-08 21:36] LABS: BUN 13 mg/dL (7-18); BUN/Creat Ratio 18.3 RATIO (10-20); Calcium,Total 8.9 mg/dL (8.5-10.1); Carbon Dioxide > 45.0 mmol/L (21.0-32.0); Chloride 87 mmol/L (98-107); Creatinine, Serum 0.71 mg/dL (0.70-1.30); EST Glomerular Filtration Rate 122 mL/min (>60); Est Glom Filt Rate - Afr Amer 148 mL/min (>60); Estimated Creatinine Clearance 130.55 ml/min; Glucose 133 mg/dL (74-106); Potassium 3.8 mmol/L (3.5-5.1); Sodium Level 137 mmol/L (136-145); Troponin-I HS 13 pg/mL (3.0-78.0)
--- NOTE | 2023-10-08 22:06 | HP.PCM.HOS_ITS ---
HPI - General General Date of Admission: 10/08/23 Date of Service: 10/08/23 Chief Complaint: Shortness of breath/mental status change HPI Narrative HARJIT ALBERTS, is a 52 M who presented to the emergency department at [facility] on 10/08/2023 with shortness of breath. The patient has a long history of severe COPD with ongoing intermittent tobacco abuse. He has frequent hospitalizations for his COPD and exacerbations. He has chronic hypercapnia and is chronically hypoxic requiring 4 L of nasal cannula baseline. His gives most of his history as he is currently on BiPAP to ease his respiratory distress however he never required more than his baseline oxygen of 4 L prior to admission. She reports that he began having worsening shortness of breath on Sunday however his nebulizers and supplemental oxygen did not help him significantly enough and he slowly worsened until today he became slightly confused so she brought him to the emergency department. He has mild cough which is his baseline. She denies him having any sputum production. She denies any knowledge of fever or chills or sick contacts. She states they had their flu vaccine about a week ago. Vital signs on presentation show a temperature of 97.5, heart rate initially was 113 however repeat 30 minutes later was 93, blood pressure was 179/102 with repeat of 157/92, respiratory rate was anywhere from 15-28 and oxygen saturation was 94% on 4 L nasal cannula and 97% on 35% FiO2 after placed on BiPAP. His CBC showed a mild leukocytosis with 11.2 white count and a minimal left shift with a 75.1% neutrophilia. A VBG was obtained which actually shorten normal pH at 7.32 leading me to believe his actual pH is probably within normal range for him. He does have known chronic hypercapnia with a baseline PCO2 from 65-75. His chemistry panel was stable compared to previous. His chest x-ray shows enlargement of the pulmonary artery and hyperinflation with diffuse interstitial prominence but no focal pneumonia. EKG is unremarkable when compared to previous. In the emergency department he was placed on BiPAP to ease his work of br eathing, given aerosols and steroids and request for admission was made. [facility] Medical History Anxiety and depression BiPAP (biphasic positive airway pressure) dependence Blood disorder Cardiology follow-up encounter Chronic hypoxemic respiratory failure Closed fracture dislocation of joint of left lower extremity Closed fracture of left tibial plateau Congestive heart failure COPD (chronic obstructive pulmonary disease) Former smoker History of echocardiogram History of edema History of pain when walking HTN (hypertension) Hypertension Incarcerated umbilical hernia Obesities, morbid Obesity hypoventilation syndrome On home oxygen therapy LAYLA (obstructive sleep apnea) Other specified injury of left quadriceps muscle, fascia and tendon, initial encounter Pulmonary embolism Seasonal allergies Severe persistent asthma Stage 4 very severe COPD by GOLD classification Tobacco dependence Uses wheelchair Home Medications spironolactone 25 mg tablet 25 mg PO BID bp 12/02/15 [History Last Taken 01/01/23] bupropion HCl 150 mg 24 hr tablet, extended release (Wellbutrin XL) 150 mg PO DAILY mental health 10/11/21 [History Last Taken 01/01/23] cyanocobalamin (vitamin B-12) 500 mcg tablet 500 mcg PO DAILY SUPPLEMENT 11/08/21 [History Last Taken 01/01/23] sertraline 100 mg tablet 100 mg PO DAILY mental health 01/23/22 [History Last Taken 01/01/23] montelukast 10 mg tablet (Singulair) 10 mg PO QPM COPD #30 tabs 06/30/22 [Rx Last Taken 12/31/22] mepolizumab 100 mg/mL subcutaneous auto-injector (Nucala) 300 mg subcut Q4W asthma 11/05/22 [History Last Taken 12/10/22] guaifenesin 1,200 mg tablet, extended release 12 hr 1,200 mg PO Q12H PRN Cough #14 tabs 11/08/22 [Rx Last Taken 12/31/22] losartan 25 mg tablet 25 mg PO DAILY blood pressure #30 tabs 11/08/22 [Rx Last Taken 01/01/23] torsemide 20 mg tablet 20 mg PO BID diuretic #60 tabs 11/08/22 [Rx Last Taken 12/31/22] furosemide 40 mg tablet 40 mg PO DAILY PRN FLUID 01/01/23 [History Last Taken 12/31/22] wnfqvmjergqo-fks-uyglt acid-vit K-lycop 400 mcg-20 mcg-370 mcg tablet (Men's 50 Plus Multivitamin) 1 tab PO DAILY SUPPLEMENT 01/01/23 [History Last Taken 12/31/22] albuterol sulfate 2.5 mg/3 mL (0.083 %) solution for nebulization 2.5 mg (3 mL) inhalation Q4H PRN shortness of breath or wheezing #360 mL 05/23/23 [Rx Last Taken Unknown] albuterol sulfate 90 mcg/actuation aerosol inhaler (Ventolin HFA) 2 puff inhalation Q4H PRN shortness of breath or wheezing #18 grams 05/23/23 [Rx Last Taken Unknown] cetirizine 10 mg tablet 10 mg PO DAILY allergies #90 tabs 05/30/23 [Rx Last Taken Unknown] metoprolol tartrate 50 mg tablet 50 mg PO BID bp 06/10/23 [History Last Taken Unknown] apixaban 5 mg tablet (Eliquis) 5 mg PO BID #60 tabs 07/10/23 [Rx Last Taken Unknown] cholecalciferol (vitamin D3) 125 mcg (5,000 unit) disintegrating tablet 125 mcg PO .every other day vitamin 08/05/23 [History Last Taken Unknown] budesonide 1 mg/2 mL suspension for nebulization 1 mg (2 mL) inhalation BID breathing #60 mL 08/27/23 [Rx Last Taken Unknown] atorvastatin 10 mg tablet 10 mg PO DAILY 10/08/23 [History Last Taken Unknown] budesonide-formoterol HFA 160 mcg-4.5 mcg/actuation aerosol inhaler (Symbicort) 2 puff inhalation BID 10/08/23 [History Last Taken Unknown] gabapentin 100 mg capsule 100 mg PO QHS 10/08/23 [History Last Taken Unknown] ipratropium 0.5 mg-albuterol 3 mg (2.5 mg base)/3 mL nebulization soln 3 ml inhalation Q6H PRN Wheezing 10/08/23 [History Last Taken Unknown] Allergy/AdvReac Type Severity Reaction Status Date / Time clarithromycin [From Biaxin] Allergy Hives Verified 08/05/23 21:07 Penicillins Allergy Hives Verified 08/05/23 21:07 Family History Mother Diabetes Breast cancer Heart disease Hypertension COPD (chronic obstructive pulmonary disease) Asthma Father Hypertension CVA (cerebral vascular accident) Surgical History History of hernia repair (~08/2018) History of tonsillectomy History of tooth extraction Hx of cardiac cath Social History household members: spouse Smoking Status: Current some day smoker tobacco type: cigarettes how long ago did patient quit smoking: Patient admits to smoking 1 cigarette to 2 cigarettes weekly second hand exposure: Yes quit status: has quit before alcohol intake: never substance use type: does not use ROS Constitutional Constitutional: Denies anorexia, change in weight, chills, fatigue, fever(s), malaise, night sweats, weakness or other Eyes Eyes: Denies blurry vision, change in eye color, change in vision, discharge from eye(s), double vision, erythema, eye pain, loss of vision or other ENT HEENT: Denies abnormal hearing, dysphagia, ear pain, epistaxis, headache(s), hearing loss, nasal congestion, nasal discharge, post nasal drip, sinus pressure, sore throat or other Cardiovascular Cardiovascular: Denies chest pain, claudication, dyspnea on exertion, edema, l ightheadedness, orthopnea, palpitations, paroxysmal nocturnal dyspnea, rapid heart rate, syncope or other Respiratory/Chest Respiratory/Chest: Reports cough, dyspnea, shortness of breath at rest, shortness of breath with exertion and wheezing; Denies excessive phlegm production, hemoptysis, productive cough or other Gastrointestinal Gastrointestinal: Denies abdominal pain, coffee ground emesis, constipation, diarrhea, dyspepsia, hematemesis, hematochezia, loose stools, melena, nausea, vomiting or other Genitourinary Genitourinary: Denies burning urination, difficulty urinating, dysuria, hematuria, nocturia, urinary frequency, urinary hesitancy, urinary incontinence, urinary urgency or other Musculoskeletal Musculoskeletal: Denies arthralgias, back pain, joint pain, joint stiffness, joint swelling, myalgias, neck pain or other Neurologic Neurologic: Denies abnormal gait, abnormal speech, confusion, disequilibrium, dizziness, focal weakness, headache(s), numbness, paresthesias, seizure-like activity, seizures, syncope, tingling, tremor(s) or other Psychiatric Psychiatric: Denies anxiety, depression, homicidal ideation, suicidal ideation or other Endocrine Endocrinology: Denies change in body appearance, cold intolerance, excessive sweating, heat intolerance, polydipsia, polyuria or other Hematologic/Lymphatic Hematologic/Lymphatic: Denies anemia, easy bleeding, easy bruising, lymphadenop athy or other Allergic/Immunologic Allergic/Immunologic: Denies rhinitis, hives, eczemia, asthma or other Vital Signs Vital Signs Vital Signs: 10/08/23 19:01 10/08/23 20:10 10/08/23 20:24 Temperature 97.5 F L Temperature Source Temporal Pulse Rate 113 H 93 Respiratory Rate 28 H 20 H Respiratory Effort Normal Respiratory Depth Normal Respiratory Pattern Normal Blood Pressure 179/102 H Blood Pressure Mean 127 Pulse Ox 94 Oxygen Delivery Method Nasal Cannula Nasal Cannula Oxygen Flow Rate (L/min) 4 4 Fraction of Inspired Oxygen (FIO2) 10/08/23 20:55 10/08/23 21:00 Temperature Temperature Source Pulse Rate 96 Respiratory Rate 15 Respiratory Effort Respiratory Depth Respiratory Pattern Normal Blood Pressure Blood Pressure Mean Pulse Ox 97 Oxygen Delivery Method Nasal Cannula Oxygen Flow Rate (L/min) 4 Fraction of Inspired Oxygen (FIO2) 35 Weight Weight: 153.1 kg Body Mass Index (BMI) 45.8 Physical Exam Const no apparent distress and well nourished; Negative for average body habitus or healthy appearing Constitutional Narrative: Middle-aged, morbidly obese, white male, lying in bed sleeping on BiPAP, currently appears comfortable and nontoxic, at bedside who assists with history HEENT normocephalic and head/scalp atraumatic HEENT Narrative: BiPAP in place Resp normal respiratory effort, no retractions and no use of accessory muscles Resp Narrative: Severely diminished diffusely with poor air movement but no adventitious noted at this time anteriorly, posterior exam not feasible as patient is sleeping on BiPAP Auscultation: Negative for rales, rhonchi or wheezes Cardio regular rate, regular rhythm, S1 normal heart sound, S2 normal heart sound, no murmurs, no rub, no gallops and no clicks GI normal to inspection, nondistended, normoactive bowel sounds and soft to palpation Extremity no clubbing, cyanosis or edema Extremity Narrative: Pedal pulses are 2+ Neuro Neuro Narrative: Unable to do full exam as patient is currently sleeping on BiPAP Results Lab / Micro Data 10/08/23 20:52 10/08/23 20:52 Labs: Laboratory Results - last 24 hr 10/08/23 20:52: WBC 11.2 H, RBC 4.44 L, Hgb 13.9, Hct 47.2, MCV 106.3 H, MCH 31.3, MCHC 29.4 L, RDW Std Deviation 49.4 H, RDW Coeff of Valerie 12.5, Plt Count 213, MPV 10.2, Immature Gran % (Auto) 0.400, Neut % (Auto) 75.1 H, Lymph % (Auto) 15.7 L, [place] % (Auto) 8.2, Eos % (Auto) 0.2, Baso % (Auto) 0.4, Absolute Neuts (auto) 8.4 H, Absolute Lymphs (auto) 1.75, Nucleated RBC % 0, Sodium 137, Potassium 3.8, Chloride 87 L, Carbon Dioxide > 45.0 H*, Anion Gap TNP, BUN 13, Creatinine 0.71, Estim Creat Clear Calc 130.55, Est GFR (MDRD) Af Amer 148, Est GFR (MDRD) Non-Af 122, BUN/Creatinine Ratio 18.3, Glucose 133 H, Calcium 8.9, Troponin I High Sens 13 ABG Data ABG results: ABG 10/08/23 20:35 Specimen Type PAPITO Sample Site Not entered O2 % 4.0 VBG pH 7.32 VBG pO2 32 VBG HCO3 51 H VBG O2 Sat (Calc) 50 VBG Base Excess 25 H POC Mix VBG pCO2 Pt Tmp 97.2 H* O2 Delivery Device Cannula Crit Call To/Read Back Yes Blood Gas Notified Whom reclaritzaa Blood Gas Notified Time 20:36:49 Radiology Impression Chest X-Ray 10/08/23 21:25 IMPRESSION: 1. Pulmonary artery enlargement again suggestive of pulmonary artery hypertension. 2. Hyperinflation with diffuse interstitial prominence although no focal pneumonia likely secondary to COPD. Electronically Signed: Dimitris Liang, DO at 21:38 EST , Assessment & Plan Assessment/Plan (1) Toxic metabolic encephalopathy: (2) Shortness of breath: (3) Leukocytosis: PLAN: Plan Shortness of breath with chronic hypoxic and hypercapnic respiratory failure secondary to acute exacerbation of COPD -Baseline PCO2 appears to be between 75 and 85 -Current oxygen requirements are 4 L of oxygen at rest -Currently on BiPAP which is relieving his shortness of breath will maintain until he stabilizes -Was not hypoxic on his baseline O2 of 4 L therefore does not qualify for acute hypoxic respiratory failure -VBG was obtained with a normal pH indicating he is not decompensated whatsoever from the hypercapnia standpoint -Check COVID and flu panel -Check respiratory viral panel -Start steroids with Solu-Medrol 40 every 8 -Continue home Lasix -Aggressive pulmonary toilet with DuoNebs and as needed albuterol -Incentive spirometry -Acapella 10 times every 2 hours -Mucinex 1200 twice daily -Pep therapy with Acapella 10 times every 2 hours while awake -Continue BiPAP nocturnally -Consider pulmonary consult if patient does not clinically improve-patient follows with Dr. Benavides as an outpatient and it does not appear he has had a recent visit with him Metabolic/toxic encephalopathy -Mild -Suspect related to the above -Monitor with treatment of acute exacerbation of COPD Leukocytosis -Doubt infectious -Elevation is mild -We will check respiratory viral panel and COVID/flu -Obtain sputum if possible Chronic metabolic alkalosis -Secondary to chronic hypercapnia -Appears to be close to baseline Asthma/COPD Gold stage 4 -Documented as end-stage by pulmonary medicine -Last PFTs in 2018 showed an FEV1 of 44% -Treatment as above for exacerbation -Restart inhalers at discharge -Patient is on Nucala as an outpatient once monthly -We will arrange for outpatient pulmonary follow-up prior to discharge History of bilateral pulmonary emboli -Diagnosed in October 2022 -Patient with intermittent Eliquis compliance -Continue DOAC LAYLA/suspected OHS -Continue BiPAP 20/12 per home regimen with naps and nightly Chronic HFpEF-suspect right-sided failure -Continue torsemide 20 mg p.o. twice daily -Echocardiogram 01/30/2023 showed an EF of 65%, mildly dilated RV, mild left atrial enlargement with no evidence of diastolic dysfunction and unable to estimate right ventricular systolic pressures Hypertension -Continue metoprolol -Continue losartan -Continue home torsemide 20 mg p.o. twice daily -Continue Aldactone Seasonal allergies -Continue home Singulair Tobacco abuse -Still smoking intermittently 1 to 2 cigarettes weekly -Had stop smoking previously -Recommend smoking cessation -No need for nicotine replacement at this time Depression/anxiety -Continue home Wellbutrin -Continue home Zoloft DVT prophylaxis -Continue full anticoagulation with Eliquis CODE STATUS -Full code Charges/Coding Visit Charges Inpatient E&M: 14302 Init Hosp L2
[2023-10-08 22:09] VITALS: BP 157/92; PULSE 89; RESP 22; TEMP 36.3; O2SAT 95
[2023-10-08 22:54] VITALS: BMI 45.3
[2023-10-08 23:00] VITALS: BP 146/104; PULSE 105; RESP 20; TEMP 36.8; O2SAT 97
[2023-10-09] VITALS (13 sets, daily range): BP systolic 143–158; BP diastolic 82–93; PULSE 72–96; RESP 12–31; TEMP 36.6–37; O2SAT 91–98
[2023-10-09] MEDS: Gabapentin 100 MG Capsule PO ×2 (00:11→20:27)
[2023-10-09] MEDS: Ipratropium/Albuterol Sulfate 3 ML AMPUL.NEB INHALATION ×5 (02:10→23:01)
[2023-10-09 06:27] LABS: Absolute Lymphocyte Count 0.58 X10^3/uL (0.83-4.51); Absolute Neutrophil Count 7.1 X10^3/uL (2.0-7.7); Basophil# 0.01 X10^3/uL; Basophil% 0.1 % (0-1); Hematocrit 44.3 % (40-54); Hemoglobin 13.6 g/dL (13.0-16.5); Lymphocyte # 0.58 X10^3/ul (0.83-4.51); Lymphocyte % 7.4 % (19-41); Mean Corp Hgb Conc 30.7 g/dL (32-36); Mean Corpuscular Hgb 31.6 pg (27.0-32.0); Mean Platelet Vol. 10.2 fl (6.2-12.0); Monocyte# 0.08 X10^3/uL; NRBC Flagged by Analyzer 0 % (0-5); Neutrophil # 7.11 X10^3/uL (2.7-7.7); Neutrophil % 91.2 % (47-70); POSITIVE DIFFERENTIAL YES; Platelet Count 197 K/mm3 (150-450); RBC Distribution Width CV 12.4 % (11.6-14.6); RBC Distribution Width SD 47.4 fl (35.1-43.9); White Blood Count 7.8 K/mm3 (4.4-11.0)
[2023-10-09 06:45] LABS: Differential Indicated SCAN CRITERIA MET
[2023-10-09 07:08] LABS: Differential Comment SCANNED
[2023-10-09 07:22] LABS: ALB/GLOB Ratio 0.8 RATIO (0.9-2.4); AST(SGOT) 15 U/L (15-37); Alanine Aminotransfer ALT/SGPT 18 U/L (16-61); Albumin, Serum 3.3 g/dL (3.2-5.0); Alkaline Phosphatase 87 U/L (45-117); Anion Gap 4 (5-15); BUN 12 mg/dL (7-18); BUN/Creat Ratio 20.8 RATIO (10-20); Chloride 90 mmol/L (98-107); Creatinine, Serum 0.58 mg/dL (0.70-1.30); EST Glomerular Filtration Rate 156 mL/min (>60); Est Glom Filt Rate - Afr Amer 189 mL/min (>60); Estimated Creatinine Clearance 159.81 ml/min; Globulin 3.9 g/dL (2.2-4.2); Glucose 176 mg/dL (74-106); Magnesium 2.1 mg/dL (1.6-2.6); Phosphorus 2.8 mg/dL (2.5-4.9); Potassium 4.1 mmol/L (3.5-5.1); Protein, Total 7.2 g/dL (6.4-8.2); Sodium Level 136 mmol/L (136-145)
--- NOTE | 2023-10-09 08:48 | PN.HOSP_ITS ---
Subjective Subjective Still on BiPAP. Objective Data Objective Data Vital Signs: Vital Signs Temp Pulse Resp BP Pulse Ox O2 Del Method O2 Flow Rate 36.9 C 88 20 H 143/93 H 94 Bi-pap 6 10/09/23 05:00 10/09/23 05:00 10/09/23 05:00 10/09/23 05:00 10/09/23 05:00 10/09/23 05:00 10/08/23 23:00 FiO2 35 10/09/23 05:00 Oxygen Flow Rate (L/min) 6 Oxygen Delivery Method Bi-pap Weight: 151.5 kg Body Mass Index (BMI) 45.3 Lab / Micro Data 10/09/23 06:07 10/09/23 06:07 Labs: Laboratory Results - last 24 hr 10/08/23 20:52: WBC 11.2 H, RBC 4.44 L, Hgb 13.9, Hct 47.2, MCV 106.3 H, MCH 31.3, MCHC 29.4 L, RDW Std Deviation 49.4 H, RDW Coeff of Valerie 12.5, Plt Count 213, MPV 10.2, Immature Gran % (Auto) 0.400, Neut % (Auto) 75.1 H, Lymph % (A uto) 15.7 L, [place] % (Auto) 8.2, Eos % (Auto) 0.2, Baso % (Auto) 0.4, Absolute Neuts (auto) 8.4 H, Absolute Lymphs (auto) 1.75, Nucleated RBC % 0, Sodium 137, Potassium 3.8, Chloride 87 L, Carbon Dioxide > 45.0 H*, Anion Gap TNP, BUN 13, Creatinine 0.71, Estim Creat Clear Calc 130.55, Est GFR (MDRD) Af Amer 148, Est GFR (MDRD) Non-Af 122, BUN/Creatinine Ratio 18.3, Glucose 133 H, Calcium 8.9, Tr oponin I High Sens 13 10/09/23 06:07: WBC 7.8, RBC 4.30 L, Hgb 13.6, Hct 44.3, MCV 103.0 H, MCH 31.6, MCHC 30.7 L, RDW Std Deviation 47.4 H, RDW Coeff of Valerie 12.4, Plt Count 197, MPV 10.2, Immature Gran % (Auto) 0.300, Neut % (Auto) 91.2 H, Lymph % (Auto) 7.4 L, [place] % (Auto) 1.0, Eos % (Auto) 0.0, Baso % (Auto) 0.1, Absolute Neuts (auto) 7.1, Absolute Lymphs (auto) 0.58 L, Nucleated RBC % 0, Differential Comment SCANNED, Sodium 136, Potassium 4.1, Chloride 90 L, Carbon Dioxide 42.0 H, Anion Gap 4 L, BUN 12, Creatinine 0.58 L, Estim Creat Clear Calc 159.81, Est GFR (MDRD) Af Amer 189, Est GFR (MDRD) Non-Af 156, BUN/Creatinine Ratio 20.8 H, Glucose 176 H, Calcium 9.0, Phosphorus 2.8, Magnesium 2.1, Total Bilirubin 0.40, AST 15, ALT 18, Alkaline Phosphatase 87, Total Protein 7.2, Albumin 3.3, Globulin 3.9, Albumin/Globulin Ratio 0.8 L Micro: Microbiology 10/09/23 00:35 Mucosa - Nose Respiratory Panel (PCR) - Final Rhinovirus 10/09/23 00:35 Nasal Secretion SARS-CoV-2 & FLU Antigen (Rapid) - Final ABG Data ABG results: ABG 10/08/23 20:35 Specimen Type PAPITO Sample Site Not entered O2 % 4.0 VBG pH 7.32 VBG pO2 32 VBG HCO3 51 H VBG O2 Sat (Calc) 50 VBG Base Excess 25 H POC Mix VBG pCO2 Pt Tmp 97.2 H* O2 Delivery Device Cannula Crit Call To/Read Back Yes Blood Gas Notified Whom reodica Blood Gas Notified Time 20:36:49 Radiography Diagnostic Testing: Radiology Impression Chest X-Ray 10/08/23 21:25 IMPRESSION: 1. Pulmonary artery enlargement again suggestive of pulmonary artery hypertension. 2. Hyperinflation with diffuse interstitial prominence although no focal pneumonia likely secondary to COPD. Electronically Signed: Dimitris Liang DO at 21:38 EST , Physical Exam Const alert and no apparent distress Constitutional Narrative: sleeping, awoke with some difficulty. no respiratory distress. Resp normal respiratory effort, no retractions, no use of accessory muscles and clear to auscultation bilaterally Cardio regular rate, regular rhythm, S1 normal heart sound and S2 normal heart sound GI normal to inspection, nondistended, normoactive bowel sounds, soft to palpation, non-tender and non-distended Extremity normal to inspection Neuro Sensorium / Orientation: awake and alert Assessment & Plan Assessment/Plan (1) Hypercapnic respiratory failure: QUALIFIERS: Chronicity: acute Qualified Code(s): J96.02 - Acute respiratory failure with hypercapnia PLAN: pCO2 on VBG 78. On BiPAP. wean as tolerated. CXR reviewed and shows no infiltrates. Likely COPD exacerbation from rhinovirus. COVID 19 and influenza negative. Continue BDs and methylprednisolone. Asthma/COPD Gold stage 4 -Documented as end-stage by pulmonary medicine -Last PFTs in 2018 showed an FEV1 of 44% -Restart inhalers at discharge -Patient is on Nucala as an outpatient once monthly -We will arrange for outpatient pulmonary follow-up prior to discharge (2) CO2 narcosis: PLAN: secondary to above. Continue w BiPAP as able. Avoid potentiating medications. (3) Leukocytosis: QUALIFIERS: Leukocytosis type: unspecified Qualified Code(s): D72.829 - Elevated white blood cell count, unspecified PLAN: mild and now resolved. No additional work up at present. PLAN: Plan Chronic conditions: * History of bilateral pulmonary emboli-Diagnosed in October 2022-Patient with intermittent Eliquis compliance-Continue DOAC * LAYLA/suspected OHS-Continue BiPAP 20/12 per home regimen with naps and nightly * Chronic HFpEF-suspect right-sided failure-Continue torsemide 20 mg p.o. twice daily-Echocardiogram 01/30/2023 showed an EF of 65%, mildly dilated RV, mild left atrial enlargement with no evidence of diastolic dysfunction and unable to estimate right ventricular systolic pressures * Hypertension-Continue metoprolol-Continue losartan-Continue home torsemide 20 mg p.o. twice daily-Continue Aldactone * Seasonal allergies-Continue home Singulair * Tobacco abuse-Still smoking intermittently 1 to 2 cigarettes weekly-Had stop smoking previously-Recommend smoking cessation-No need for nicotine replacement at this time * Depression/anxiety-Continue home Wellbutrin-Continue home Zoloft DVT prophylaxis: not indicated as already on apixaban. CODE STATUS -Full code Charges/Coding Visit Charges Inpatient E&M: 85662 Subs Hosp L2
--- NOTE | 2023-10-09 11:54 | CASEMGMT ---
Social Work Living will and POA both scanned into summary chart, Laura Mirza is listed as healthcare POA. MAYLIN Laureano
--- NOTE | 2023-10-09 11:55 | CASEMGMT ---
Addendum entered by Darby Flynn 10/09/23 16:24: [facility] order for SN entered and [facility] via [facility]. . Original Note: RN?CM?RN IMCU?CM?to room to meet with patient for initial transition planning/care coordination?assessment.?RN?CM?introduced self and role at [facility].? Pt voices understanding and consents to?assessment?at this time.? Pt resting in bed in no distress at this time. Pt is A/O at this time and answers all questions appropriately.?? Care providers, pharmacy, and demographics verified/updated at this time. PCP: Dr Chitra Scott Specialists:Dr Benavides/Alesia Morales, PACKAGING SPECIALIST--pulmonology, Dr Bojorquez-cardiology in [facility] Pharmacy: [facility] Retail @ ca Insurance:[employer] MCR Prescription Benefit:?Yes Living Will/HPOA:?Has both LW and HCPOA, who is his sig other, Laura. Copies are on file @ [facility]. LNOK: Sig other, Laura/POA. son, Daniele Living Arrangements: Lives w/Laura in mobile home w/no steps to enter. Pt states he is mostly indep w/ADL's, but Laura does help when needed. Pt states he manages his own medications. Laura does home mgnt tasks. Transportation:?Pt states drives self and states no transportation concerns at this time.?Laura also drives DME: ?States has the following DME: nebulizer, pulse ox, grab bars. Pt has a cane and walker he uses at times. Pt has a shower chair, but states it broke and Laura is working on getting another one. Pt has O2 through [employer] and states he wears it 5-6 L/M @ HS, bleed-in via BIPAP and 3-4 L/M during the day. Pt states Laura could bring in portable O2 tank @ discharge for him to go home on. He states, though, if it is his son that takes him home, he is not sure if he will be able to bring a tank in. Pt states no need for further DME at this time.? HHC/SNF: Pt states he has been to a SNF after knee surgery. He states he is active w/[facility] for SN. He would like to resume w/[facility] for SN only and declines wanting list of other HHC options. He states does not feel he will need therapy again. Pt wishes to return home and states has no concerns with going home at time of discharge.? CM?to follow for any increase in home oxygen needs and any further discharge planning/needs.? Pt voices no further concerns/needs at this time.? Advised pt to ask for?CM?if any further questions/concerns/needs arise.? Voices understanding. PLAN:??Home w/[facility] HHC: SN Follow for any increase in home oxygen needs. Luis BSN?RN?CM
[2023-10-09] MEDS: Spironolactone 25 MG Tablet PO ×2 (11:58→20:27)
[2023-10-09] MEDS: buPROPion (XL) 150 MG TABLET.XL PO (11:59)
[2023-10-09] MEDS: Loratadine 10 MG Tablet PO (11:59)
[2023-10-09] MEDS: Losartan Potassium 25 MG Tablet PO (11:59)
[2023-10-09] MEDS: APIXABAN 5 MG TABLET PO ×2 (11:59→20:27)
[2023-10-09] MEDS: Furosemide 80 MG Tablet PO (12:00)
[2023-10-09] MEDS: Metoprolol Tartrate 50 MG Tablet PO ×2 (12:00→20:34)
[2023-10-09] MEDS: Sertraline 100 MG Tablet PO (12:00)
[2023-10-09] MEDS: Cyanocobalamin 500 MCG Tablet PO (12:01)
[2023-10-09] MEDS: Atorvastatin Calcium 10 MG Tablet PO (20:28)
[2023-10-09] MEDS: Montelukast 10 MG Tablet PO (20:34)
--- NOTE | 2023-10-09 23:39 | CPS ---
Patient wishes to not perform IS & PEP at this time
[2023-10-10] VITALS (13 sets, daily range): BP systolic 130–159; BP diastolic 64–99; PULSE 63–90; RESP 12–28; TEMP 36.2–36.8; O2SAT 92–98
[2023-10-10] MEDS: Ipratropium/Albuterol Sulfate 3 ML AMPUL.NEB INHALATION ×4 (07:06→19:21)
[2023-10-10] MEDS: APIXABAN 5 MG TABLET PO ×2 (09:24→21:33)
[2023-10-10] MEDS: Spironolactone 25 MG Tablet PO ×2 (09:24→21:33)
[2023-10-10] MEDS: Cyanocobalamin 500 MCG Tablet PO (09:24)
[2023-10-10] MEDS: Metoprolol Tartrate 50 MG Tablet PO ×2 (09:24→21:33)
[2023-10-10] MEDS: Losartan Potassium 25 MG Tablet PO (09:25)
[2023-10-10] MEDS: Sertraline 100 MG Tablet PO (09:25)
[2023-10-10] MEDS: Furosemide 80 MG Tablet PO (09:25)
[2023-10-10] MEDS: Cholecalciferol (Vit D3) 125 MCG CAPSULE (5,000 UNITS) PO (09:25)
[2023-10-10] MEDS: Loratadine 10 MG Tablet PO (09:25)
[2023-10-10] MEDS: buPROPion (XL) 150 MG TABLET.XL PO (09:25)
[2023-10-10 09:42] LABS: VBG TCO2 > 50 mmol/L (23-33)
--- NOTE | 2023-10-10 09:55 | PN.HOSP_ITS ---
Reason for Visit Reason for Visit: Diagnoses Elevated white blood cell count, unspecified (10/08/23) Other toxic encephalopathy (10/08/23) Acute respiratory failure with hypercapnia (10/08/23) Shortness of breath (10/08/23) Other abnormalities of breathing (10/08/23) Subjective Subjective Breathing better. States he is getting flareups every few months. Objective Data Objective Data Vital Signs: Vital Signs Temp Pulse Resp BP Pulse Ox O2 Del Method O2 Flow Rate 36.2 C L 68 16 145/87 H 93 Nasal Cannula 3.5 10/10/23 09:12 10/10/23 09:24 10/10/23 09:12 10/10/23 09:24 10/10/23 09:12 10/10/23 09:12 10/10/23 09:12 FiO2 35 10/10/23 07:06 Oxygen Flow Rate (L/min) 3.5 Oxygen Delivery Method Nasal Cannula Weight: 151.5 kg Body Mass Index (BMI) 45.3 Intake & Output: Intake and Output for Last 24 Hours 10/08/23 10/09/23 10/10/23 23:59 23:59 23:59 Intake Total 1430 / 1880 700 / 700 Balance 1430 / 1880 700 / 700 Lab / Micro Data 10/09/23 06:07 10/09/23 06:07 Micro: Microbiology 10/09/23 00:35 Mucosa - Nose Respiratory Panel (PCR) - Final Rhinovirus 10/09/23 00:35 Nasal Secretion SARS-CoV-2 & FLU Antigen (Rapid) - Final ABG Data ABG results: ABG 10/08/23 20:35 VBG Total CO2 > 50 H Physical Exam Const alert and no apparent distress Resp normal respiratory effort, no retractions, no use of accessory muscles and clear to auscultation bilaterally Cardio regular rate, regular rhythm, S1 normal heart sound and S2 normal heart sound GI normal to inspection, nondistended, normoactive bowel sounds and soft to palpation Neuro Sensorium / Orientation: awake and alert Assessment & Plan Assessment/Plan (1) Hypercapnic respiratory failure: QUALIFIERS: Chronicity: acute Qualified Code(s): J96.02 - Acute respiratory failure with hypercapnia PLAN: pCO2 on VBG 78. On BiPAP. wean as tolerated. CXR reviewed and shows no infiltrates. Likely COPD exacerbation from rhinovirus. COVID 19 and influenza negative. Continue BDs and methylprednisolone. Plan for prednisone taper upon discharge. Asthma/COPD Gold stage 4 -Documented as end-stage by pulmonary medicine -Last PFTs in 2018 showed an FEV1 of 44% -Restart inhalers at discharge -Patient is on Nucala as an outpatient once monthly -We will arrange for outpatient pulmonary follow-up prior to discharge (2) CO2 narcosis: PLAN: secondary to above. Continue w BiPAP as able. Avoid potentiating medications. (3) Leukocytosis: QUALIFIERS: Leukocytosis type: unspecified Qualified Code(s): D72.829 - Elevated white blood cell count, unspecified PLAN: mild and now resolved. No additional work up at present. PLAN: Plan Chronic conditions: * History of bilateral pulmonary emboli-Diagnosed in October 2022-Patient with intermittent Eliquis compliance-Continue DOAC * LAYLA/suspected OHS-Continue BiPAP 20/12 per home regimen with naps and nightly * Chronic HFpEF-suspect right-sided failure-Continue torsemide 20 mg p.o. twice daily-Echocardiogram 01/30/2023 showed an EF of 65%, mildly dilated RV, mild left atrial enlargement with no evidence of diastolic dysfunction and unable to estimate right ventricular systolic pressures * Hypertension-Continue metoprolol-Continue losartan-Continue home torsemide 20 mg p.o. twice daily-Continue Aldactone * Seasonal allergies-Continue home Singulair * Tobacco abuse-Still smoking intermittently 1 to 2 cigarettes weekly-Had stop smoking previously-Recommend smoking cessation-No need for nicotine replacement at this time * Depression/anxiety-Continue home Wellbutrin-Continue home Zoloft DVT prophylaxis: not indicated as already on apixaban. CODE STATUS -Full code Charges/Coding Visit Charges Inpatient E&M: 31087 Subs Hosp L2
--- NOTE | 2023-10-10 09:58 | CASEMGMT ---
FINA BLAKELY NOTE: [facility] notified of pt's admission to [facility] via E-mail. Luis ZUNIGA RN CM
[2023-10-10] MEDS: Atorvastatin Calcium 10 MG Tablet PO (21:33)
[2023-10-10] MEDS: Gabapentin 100 MG Capsule PO (21:33)
[2023-10-10] MEDS: Montelukast 10 MG Tablet PO (21:33)
[2023-10-11] VITALS (9 sets, daily range): BP systolic 131–151; BP diastolic 64–93; PULSE 59–85; RESP 12–20; TEMP 36.6–37; O2SAT 83–98
[2023-10-11] MEDS: Ipratropium/Albuterol Sulfate 3 ML AMPUL.NEB INHALATION ×3 (00:29→10:52)
--- NOTE | 2023-10-11 09:04 | PN.HOSP_ITS ---
Reason for Visit Reason for Visit: Diagnoses Elevated white blood cell count, unspecified (10/08/23) Other toxic encephalopathy (10/08/23) Acute respiratory failure with hypercapnia (10/08/23) Shortness of breath (10/08/23) Other abnormalities of breathing (10/08/23) Subjective Subjective Breathing well. No events overnight. Objective Data Objective Data Vital Signs: Vital Signs Temp Pulse Resp BP Pulse Ox O2 Del Method O2 Flow Rate 36.6 C 70 14 131/64 H 95 Bi-pap 4 10/11/23 03:00 10/11/23 07:19 10/11/23 07:19 10/11/23 03:00 10/11/23 07:19 10/11/23 03:00 10/10/23 22:00 FiO2 35 10/11/23 07:19 Oxygen Flow Rate (L/min) 4 Oxygen Delivery Method Bi-pap Weight: 151.5 kg Body Mass Index (BMI) 45.3 Intake & Output: Intake and Output for Last 24 Hours 10/09/23 10/10/23 10/11/23 23:59 23:59 23:59 Intake Total 1430 / 1880 700 / 940 240 / 240 Balance 1430 / 1880 700 / 940 240 / 240 Lab / Micro Data 10/09/23 06:07 10/09/23 06:07 Micro: Microbiology 10/09/23 18:20 Sputum, Expectorated/Coughed Gram Stain - Final 10/09/23 18:20 Sputum, Expectorated/Coughed Respiratory Culture - Final Mixed normal respiratory seng. No Streptococcus pneumoniae, beta-hemolytic Streptococcus or Staphylococcus aureus isolated. 10/09/23 00:35 Mucosa - Nose Respiratory Panel (PCR) - Final Rhinovirus 10/09/23 00:35 Nasal Secretion SARS-CoV-2 & FLU Antigen (Rapid) - Final ABG Data ABG results: ABG 10/08/23 20:35 VBG Total CO2 > 50 H Physical Exam Const alert and no apparent distress HEENT head/scalp atraumatic Resp Resp Narrative: Diminished. Faint expiratory wheeze. Cardio regular rate, regular rhythm, S1 normal heart sound and S2 normal heart sound GI normal to inspection, nondistended, normoactive bowel sounds, soft to palpation, non-tender and non-distended Assessment & Plan Assessment/Plan (1) Hypercapnic respiratory failure: QUALIFIERS: Chronicity: acute Qualified Code(s): J96.02 - Acute respiratory failure with hypercapnia PLAN: pCO2 on VBG 78. On BiPAP. wean as tolerated. CXR reviewed and shows no infiltrates. Likely COPD exacerbation from rhinovirus. COVID 19 and influenza negative. Continue BDs and methylprednisolone. Plan for prednisone taper upon discharge. Asthma/COPD Gold stage 4 -Documented as end-stage by pulmonary medicine -Last PFTs in 2019 showed an FEV1 of 44% -Restart inhalers at discharge -Patient is on Nucala as an outpatient once monthly -We will arrange for outpatient pulmonary follow-up prior to discharge Patient required 8 L with activity. Patient states that he has a condenser goes up to 10 L at home. States he feels at his baseline. Patient states also that he does not normally walk given recent fractures to his metatarsals. Asked how he gets around his house he is was rather evasive in regards to what the answer was but he states that he when he has not doctors office that I will use a wheelchair. (2) CO2 narcosis: PLAN: secondary to above. Continue w BiPAP as able. Avoid potentiating medications. Resolved (3) Leukocytosis: QUALIFIERS: Leukocytosis type: unspecified Qualified Code(s): D72.829 - Elevated white blood cell count, unspecified PLAN: mild and now resolved. No additional work up at present. PLAN: Plan Chronic conditions: * History of bilateral pulmonary emboli-Diagnosed in October 2022-Patient with intermittent Eliquis compliance-Continue DOAC * LAYLA/suspected OHS-Continue BiPAP 20/12 per home regimen with naps and nightly * Chronic HFpEF-suspect right-sided failure-Continue torsemide 20 mg p.o. twice daily-Echocardiogram 01/30/2023 showed an EF of 65%, mildly dilated RV, mild left atrial enlargement with no evidence of diastolic dysfunction and unable to estimate right ventricular systolic pressures * Hypertension-Continue metoprolol-Continue losartan-Continue home torsemide 20 mg p.o. twice daily-Continue Aldactone * Seasonal allergies-Continue home Singulair * Tobacco abuse-Still smoking intermittently 1 to 2 cigarettes weekly-Had stop smoking previously-Recommend smoking cessation-No need for nicotine replacement at this time * Depression/anxiety-Continue home Wellbutrin-Continue home Zoloft Discharge home
[2023-10-11] MEDS: Spironolactone 25 MG Tablet PO (09:18)
[2023-10-11] MEDS: Loratadine 10 MG Tablet PO (09:19)
[2023-10-11] MEDS: buPROPion (XL) 150 MG TABLET.XL PO (09:19)
[2023-10-11] MEDS: Sertraline 100 MG Tablet PO (09:19)
[2023-10-11] MEDS: Cyanocobalamin 500 MCG Tablet PO (09:19)
[2023-10-11] MEDS: APIXABAN 5 MG TABLET PO (09:20)
[2023-10-11] MEDS: Furosemide 80 MG Tablet PO (09:20)
[2023-10-11] MEDS: Metoprolol Tartrate 50 MG Tablet PO (09:21)
--- NOTE | 2023-10-11 12:09 | DS.PCM_ITS ---
Providers Date of Admission: 10/08/23 Primary Care Physician: CLAYTON Monroy Reason For Visit: SOB Diagnosis Discharge Diagnosis (1) Hypercapnic respiratory failure: Status: Acute Code(s): J96.92 - Respiratory failure, unspecified with hypercapnia Qualifiers: Chronicity: acute Qualified Code(s): J96.02 - Acute respiratory failure with hypercapnia Plan: pCO2 on VBG 78. On BiPAP. wean as tolerated. CXR reviewed and shows no infiltrates. Likely COPD exacerbation from rhinovirus. COVID 19 and influenza negative. Continue BDs and methylprednisolone. Plan for prednisone taper upon discharge. Asthma/COPD Gold stage 4 -Documented as end-stage by pulmonary medicine -Last PFTs in 2019 showed an FEV1 of 44% -Restart inhalers at discharge -Patient is on Nucala as an outpatient once monthly -We will arrange for outpatient pulmonary follow-up prior to discharge Patient required 8 L with activity. Patient states that he has a condenser goes up to 10 L at home. States he feels at his baseline. Patient states also that he does not normally walk given recent fractures to his metatarsals. Asked how he gets around his house he is was rather evasive in regards to what the answer was but he states that he when he has not doctors office that I will use a wheelchair. (2) CO2 narcosis: Status: Acute Code(s): R06.89 - Other abnormalities of breathing Plan: secondary to above. Continue w BiPAP as able. Avoid potentiating medications. Resolved (3) Leukocytosis: Status: Acute Code(s): D72.829 - Elevated white blood cell count, unspecified Qualifiers: Leukocytosis type: unspecified Qualified Code(s): D72.829 - Elevated wh ite blood cell count, unspecified Plan: mild and now resolved. No additional work up at present. Plan Chronic conditions: * History of bilateral pulmonary emboli-Diagnosed in October 2022-Patient with intermittent Eliquis compliance-Continue DOAC * LAYLA/suspected OHS-Continue BiPAP 20/12 per home regimen with naps and nightly * Chronic HFpEF-suspect right-sided failure-Continue torsemide 20 mg p.o. twice daily-Echocardiogram 01/30/2023 showed an EF of 65%, mildly dilated RV, mild left atrial enlargement with no evidence of diastolic dysfunction and unable to estimate right ventricular systolic pressures * Hypertension-Continue metoprolol-Continue losartan-Continue home torsemide 20 mg p.o. twice daily-Continue Aldactone * Seasonal allergies-Continue home Singulair * Tobacco abuse-Still smoking intermittently 1 to 2 cigarettes weekly-Had stop smoking previously-Recommend smoking cessation-No need for nicotine replacement at this time * Depression/anxiety-Continue home Wellbutrin-Continue home Zoloft Discharge home Medications at Discharge Home Medications spironolactone 25 mg tablet 25 mg PO BID bp 12/02/15 bupropion HCl 150 mg 24 hr tablet, extended release (Wellbutrin XL) 150 mg PO DAILY mental health 10/11/21 cyanocobalamin (vitamin B-12) 500 mcg tablet 500 mcg PO DAILY SUPPLEMENT 11/08/21 sertraline 100 mg tablet 100 mg PO DAILY mental health 01/23/22 montelukast 10 mg tablet (Singulair) 10 mg PO QPM COPD #30 tabs 06/30/22 mepolizumab 100 mg/mL subcutaneous auto-injector (Nucala) 300 mg subcut Q4W asthma 11/05/22 guaifenesin 1,200 mg tablet, extended release 12 hr 1,200 mg PO Q12H PRN Cough #14 tabs 11/08/22 losartan 25 mg tablet 25 mg PO DAILY blood pressure #30 tabs 11/08/22 torsemide 20 mg tablet 20 mg PO BID diuretic #60 tabs 11/08/22 furosemide 40 mg tablet 40 mg PO DAILY PRN FLUID 01/01/23 ptygibdnzkyi-ozn-hbxua acid-vit K-lycop 400 mcg-20 mcg-370 mcg tablet (Men's 50 Plus Multivitamin) 1 tab PO DAILY SUPPLEMENT 01/01/23 albuterol sulfate 2.5 mg/3 mL (0.083 %) solution for nebulization 2.5 mg (3 mL) inhalation Q4H PRN shortness of breath or wheezing #360 mL 05/23/23 albuterol sulfate 90 mcg/actuation aerosol inhaler (Ventolin HFA) 2 puff inhalation Q4H PRN shortness of breath or wheezing #18 grams 05/23/23 cetirizine 10 mg tablet 10 mg PO DAILY allergies #90 tabs 05/30/23 metoprolol tartrate 50 mg tablet 50 mg PO BID bp 06/10/23 apixaban 5 mg tablet (Eliquis) 5 mg PO BID #60 tabs 07/10/23 cholecalciferol (vitamin D3) 125 mcg (5,000 unit) disintegrating tablet 125 mcg PO .every other day vitamin 08/05/23 budesonide 1 mg/2 mL suspension for nebulization 1 mg (2 mL) inhalation BID breathing #60 mL 08/27/23 atorvastatin 10 mg tablet 10 mg PO DAILY 10/08/23 budesonide-formoterol HFA 160 mcg-4.5 mcg/actuation aerosol inhaler (Symbicort) 2 puff inhalation BID 10/08/23 gabapentin 100 mg capsule 100 mg PO QHS 10/08/23 ipratropium 0.5 mg-albuterol 3 mg (2.5 mg base)/3 mL nebulization soln 3 ml inhalation Q6H PRN Wheezing 10/08/23 prednisone 10 mg tablet 10 mg PO DAILY #30 tabs 10/11/23 Hospital Course Operations None Procedures None Summary of Care Provided Minutes Spent on Discharge: 32 Hospital Course: Patient presented with COPD exacerbation as well as CO2 narcosis. Overall patient improved with bronchodilators steroids. Patient was on BiPAP temporarily. Patient is overall improving. Patient is feeling better today but we got up and ambulated him and he required 8 L to maintain a pulse ox of 88%. Patient said that he does not normally walk around at home given recent fractures that he has had to his feet. Patient states that he feels fine staying. I did recommend that he stay longer because he is still requiring fair amount of oxygen at this time. He states that he is stable and that his condenser goes up to 10 L. He states that is normal for him at home. I will have the patient on a prednisone taper and he does have follow-up appointment in November with pulmonology. He apparently had an appointment earlier this month but was no-show for unclear reason. I told if he does come back in short period time that I would require his oxygen being 6 L or less with activity before his discharge. He expressed understanding. Weight / BMI Weight Weight: 151.5 kg Body Mass Index (BMI) 45.3 ABG / Lab / Microbiology Data 10/09/23 06:07 10/09/23 06:07 Microbiology: Microbiology 10/09/23 18:20 Sputum, Expectorated/Coughed Gram Stain - Final 10/09/23 18:20 Sputum, Expectorated/Coughed Respiratory Culture - Final Mixed normal respiratory seng. No Streptococcus pneumoniae, beta-hemolytic Streptococcus or Staphylococcus aureus isolated. 10/09/23 00:35 Mucosa - Nose Respiratory Panel (PCR) - Final Rhinovirus 10/09/23 00:35 Nasal Secretion SARS-CoV-2 & FLU Antigen (Rapid) - Final D/C Instructions Discharge Diet: 8 Cup Fluid Restriction and 2000 mg Sodium Diet Meaningful Use Info Meaningful Use Diagnoses (Choose all that apply): None applicable Discharge Plan Admission Admit Date/Time: 10/08/23 22:41 Primary Reason for Your Visit: COPD exacerbation Attending Provider: Zi Martines Primary Care Provider: Chitra Scott Consulting Providers: Mely Lyons Instructions Additional Instructions / Restrictions: You had a exacerbation of your COPD secondary to rhinovirus, which is a common cold virus. You have done okay but you still requiring 8 L with activity. As per discussion today, he states that that is typical for you and you said you also had a condenser that goes up to 10 L. I will have you on a prednisone taper that will be going on for about 2 weeks. He recently had an appointment on the second with Dr. Benavides but it documented he had a no-show appointment. You do have a follow-up appointment for December 05. Preferably would like for you to see him sooner if that is possible. If not then keep that appointment in November. Discharge Orders/Prescriptions Prescriptions: New prednisone 10 mg tablet 10 mg PO DAILY Qty: 30 0RF Rx Instructions: 4 tabs daily for 3 days, then 3 tabs daily for 3 days, then 2 tabs daily for 3 days, then 1 tab daily for 3 days Continued sertraline 100 mg tablet 100 mg PO DAILY Eliquis 5 mg tablet 5 mg PO BID Qty: 60 11RF Rx Instructions: 10 mg (2 TAB) twice daily for 7 days and then 5 mg (1 TAB) twice daily to continue. DVT/PE dose spironolactone 25 MG tablet 25 mg PO BID Patient Comments: WATER PILL bupropion HCl [Wellbutrin XL] 150 mg Tablet Extended Release 24 Hr 150 mg PO DAILY cyanocobalamin (vitamin B-12) 500 MCG tablet 500 mcg PO DAILY Nucala 100 mg/mL auto-injector 300 mg subcut Q4W Patient Comments: Takes around the 14th of each month. Rx Instructions: administer as three 100 mg injections at separate sites torsemide 20 mg tablet 20 mg PO BID Qty: 60 2RF guaifenesin 1,200 MG tablet extended release 12hr 1,200 mg PO Q12H PRN (Reason: Cough) Qty: 14 0RF losartan 25 mg tablet 25 mg PO DAILY Qty: 30 1RF furosemide 40 mg tablet 40 mg PO DAILY PRN (Reason: FLUID) Patient Comments: TAKE 1 TABLET BY MOUTH EVERY DAY NEEDED Men's 50 Plus Multivitamin 400-20-370 mcg Tablet 1 tab PO DAILY metoprolol tartrate 50 mg tablet 50 mg PO BID Patient Comments: TAKE 1 TABLET BY MOUTH TWICE A DAY budesonide-formoterol [Symbicort] 160-4.5 mcg/actuation HFA aerosol inhaler 2 puff inhalation BID gabapentin 100 mg capsule 100 mg PO QHS Patient Comments: Take 1 capsule (100 mg) by mouth once daily at bedtime. atorvastatin 10 mg tablet 10 mg PO DAILY Patient Comments: TAKE 1 TABLET BY MOUTH EVERY DAY ipratropium-albuterol 0.5 mg-3 mg(2.5 mg base)/3 mL solution for nebulization 3 ml INHALATION Q6H PRN (Reason: Wheezing) cholecalciferol (vitamin D3) 125 mcg (5,000 unit) tablet,disintegrating 125 mcg PO .every other day montelukast [Singulair] 10 mg tablet 10 mg PO QPM Qty: 30 5RF albuterol sulfate 2.5 mg /3 mL (0.083 %) solution for nebulization 2.5 mg INHALATION Q4H PRN (Reason: shortness of breath or wheezing) Qty: 360 6RF albuterol sulfate [Ventolin HFA] 90 mcg/actuation HFA aerosol inhaler 2 puff INHALATION Q4H PRN (Reason: shortness of breath or wheezing) Qty: 18 6RF cetirizine 10 mg tablet 10 mg PO DAILY Qty: 90 3RF budesonide 1 mg/2 mL suspension for nebulization 1 mg inhalation BID Qty: 60 11RF Referrals / Follow Up: Chitra Scott NP-C [Primary Care Provider] - Pulmonary Medicine [facility] [Provider Group] - Within 1 Month Disposition Disposition (needs filled in before D/C Order can be placed): Home Health Service Charges/Coding Visit Charges Inpatient E&M: 65611 Disch Hosp >30min
--- NOTE | 2023-10-11 13:26 | CASEMGMT ---
Addendum entered by Darby Flynn 10/11/23 13:41: Per Katarina, pt's HHC ended today and they will need new order for start of care w/them again. Order placed for HHC: SN. Original Note: FINA BLAKELY NOTE: Pt being discharged today. Call to Tonie @ Palliative [facility] and she was notified pt is discharging home today. Katarina @ [facility] also made aware. Home O2 testing has been done and sat's 88% on 8 l/m (pt's baseline) w/exertion today and 3.5 l/m @ rest and Dr Martines is aware and agreeable to pt discharging home on this. FINA BLAKELY to room. Pt states his breathing is better than it has been and he does not walk around much @ his baseline. He states he wants to go home and he feels safe to discharge home. Pt has portable O2 tank to go home on. Pt clarifies that his oxygen is now through [employer], not [employer], as previously stated. Pt and state pulmonology has been working w/[employer] to get NIV set up and they do not know where they are at in the process. FINA BLAKELY placed call to [facility]. She states pt's insurance denied covering for NIV and also denied it again when she sent in for appeal. She states, d/t pt having another readmission to [facility] that they could re-submit for an NIV again if Dr Benavides sends in order. Pt and made aware and they state they will f/u with Dr Benavides's office about this. They deny having other discharge planning needs or concerns. Luis ZUNIGA RN, CM
== END 2023-10-11 15:08 | disposition home health service (06) | DRG 189 ==
LOC: ED 21:53 → PCU 22:19
PROVIDERS: Admitting Provider Internal Medicine; Emergency Provider Emergency Medicine; PCP Nurse Practitioner Family
DX: J96.02 Acute respiratory failure with hypercapnia (principal); E66.2 Morbid (severe) obesity with alveolar hypoventilation; I50.32 Chronic diastolic (congestive) heart failure; J44.1 Chronic obstructive pulmonary disease with (acute) exacerbation; Z68.41 Body mass index [BMI] 40.0-44.9, adult; J45.51 Severe persistent asthma with (acute) exacerbation; I50.812 Chronic right heart failure; Z99.81 Dependence on supplemental oxygen; I11.0 Hypertensive heart disease with heart failure; F32.A Depression, unspecified; J30.2 Other seasonal allergic rhinitis; F17.210 Nicotine dependence, cigarettes, uncomplicated; F41.9 Anxiety disorder, unspecified; J00 Acute nasopharyngitis [common cold]; B97.89 Other viral agents as the cause of diseases classified elsewhere; Z79.01 Long term (current) use of anticoagulants; Z79.52 Long term (current) use of systemic steroids; Z79.899 Other long term (current) drug therapy; Z86.711 Personal history of pulmonary embolism
CPT/HCPCS: 36415; 71045; 80048; 80053; 82803; 83735; 84100; 84484; 85025; 87070; 87205; 87428; 87633; 93005; 94002; 94003; 94640; 94668; 94762; 99252; 99284; A4216; G0463

== ENCOUNTER 2023-12-18 08:31 | Inpatient (IN) | payer MEDICARE, SELFPAY ==
[2023-12-18] VITALS (10 sets, daily range): BP systolic 126–165; BP diastolic 61–95; PULSE 64–109; RESP 16–25; TEMP 36.2–36.6; O2SAT 93–99; BMI 33.0; BMI 44.5
--- NOTE | 2023-12-18 08:50 | RAD_ITS ---
STUDY: X-RAY LEFT FOOT, SECOND AND THIRD TOES. REASON FOR EXAM: Male, 53 years old. Pain following injury. TECHNIQUE: 4 view(s) of the toe were obtained. COMPARISON: None. FINDINGS: Normal visualized metatarsus. Normal metatarsophalangeal (M.T.P) joint. Normal interphalangeal joints. Nondisplaced transverse fracture at the base of the proximal phalanx of the second and third toes. Soft tissue swelling. RAD/Toe(s) Min 2 Views IMPRESSION: Nondisplaced fractures at the base of the proximal phalanges of the second and third toes with overlying soft tissue swelling. Electronically Signed: Arsenio Funk MD at 9:16 EST ,
--- NOTE | 2023-12-18 08:52 | ED.VIS.LOWEX ---
HPI History of Present Illness Chief Complaint: Laceration Informant: patient Narrative Narrative: 53-year-old male presenting to the emergency room with left foot laceration. Patient states that he tripped on a dog gate this morning resulting in injury to the left toes. He is unsure of where the laceration is at but notes bleeding. He states he is no longer on his Eliquis. He notes burning sensation along the second and third toes. Tetanus Immunization: <5 years PFSH PFS Medical History Anxiety and depression BiPAP (biphasic positive airway pressure) dependence Blood disorder Cardiology follow-up encounter Chronic hypoxemic respiratory failure Closed fracture dislocation of joint of left lower extremity Closed fracture of left tibial plateau Congestive heart failure COPD (chronic obstructive pulmonary disease) Former smoker History of echocardiogram History of edema History of pain when walking HTN (hypertension) Hypertension Incarcerated umbilical hernia Obesities, morbid Obesity hypoventilation syndrome On home oxygen therapy LAYLA (obstructive sleep apnea) Other specified injury of left quadriceps muscle, fascia and tendon, initial encounter Pulmonary embolism Seasonal allergies Severe persistent asthma Stage 4 very severe COPD by GOLD classification Tobacco dependence Uses wheelchair Home Medications spironolactone 25 mg tablet 25 mg PO BID FLUID RETENTION/BLOOD PRESSURE 12/02/15 [History Last Taken 12/17/23] bupropion HCl 150 mg 24 hr tablet, extended release (Wellbutrin XL) 150 mg PO DAILY DEPRESSION 10/11/21 [History Last Taken 12/17/23] cyanocobalamin (vitamin B-12) 500 mcg tablet 500 mcg PO DAILY SUPPLEMENT 11/08/21 [History Last Taken 01/01/23] sertraline 100 mg tablet 100 mg PO DAILY DEPRESSION 01/23/22 [History Last Taken 01/01/23] montelukast 10 mg tablet (Singulair) 10 mg PO QPM COPD #30 tabs 06/30/22 [Rx Last Taken 12/17/23] mepolizumab 100 mg/mL subcutaneous auto-injector (Nucala) 300 mg subcut Q4W asthma 11/05/22 [History Last Taken 12/10/23] losartan 25 mg tablet 25 mg PO DAILY blood pressure #30 tabs 11/08/22 [Rx Last Taken 12/17/23] torsemide 20 mg tablet 20 mg PO BID FLUID RETENTION #60 tabs 11/08/22 [Rx Last Taken 12/17/23] furosemide 40 mg tablet 40 mg PO DAILY PRN FLUID RETENTION 01/01/23 [History Last Taken 12/31/22] albuterol sulfate 2.5 mg/3 mL (0.083 %) solution for nebulization 2.5 mg (3 mL) inhalation Q4H PRN shortness of breath or wheezing #360 mL 05/23/23 [Rx Last Taken 12/18/23] albuterol sulfate 90 mcg/actuation aerosol inhaler (Ventolin HFA) 2 puff inhalation Q4H PRN shortness of breath or wheezing #18 grams 05/23/23 [Rx Last Taken 12/17/23] cetirizine 10 mg tablet 10 mg PO DAILY allergies #90 tabs 05/30/23 [Rx Last Taken 12/17/23] metoprolol tartrate 50 mg tablet 50 mg PO BID BLOOD PRESSURE 06/10/23 [History Last Taken Unknown] apixaban 5 mg tablet (Eliquis) 5 mg PO BID BLOOD THINNER #60 tabs 07/10/23 [Rx Last Taken Unknown] cholecalciferol (vitamin D3) 125 mcg (5,000 unit) disintegrating tablet 125 mcg PO QODAY SUPPLEMENT 08/05/23 [History Last Taken 12/17/23] budesonide 1 mg/2 mL suspension for nebulization 1 mg (2 mL) inhalation BID WHEEZING/SHORTNESS OF BREATH #60 mL 08/27/23 [Rx Last Taken 12/17/23] budesonide-formoterol HFA 160 mcg-4.5 mcg/actuation aerosol inhaler (Symbicort) 2 puff inhalation BID SHORTNESS OF BREATH 10/08/23 [History Last Taken 12/17/23] gabapentin 100 mg capsule 200 mg PO QHS NERVE PAIN 10/24/23 [History Last Taken 12/17/23] fluticasone propionate 50 mcg/actuation nasal spray,suspension 2 spray intranasal DAILY PRN seasonal allergies 12/18/23 [History Last Taken Unknown] prednisone 20 mg tablet 40 mg PO DAILY shortness of breath 12/18/23 [History Last Taken 12/17/23] Allergy/AdvReac Type Severity Reaction Status Date / Time clarithromycin [From Biaxin] Allergy Hives Verified 12/18/23 08:32 Penicillins Allergy Hives Verified 12/18/23 08:32 Family History Mother Diabetes Breast cancer Heart disease Hypertension COPD (chronic obstructive pulmonary disease) Asthma Father Hypertension CVA (cerebral vascular accident) Surgical History History of hernia repair (~08/2018) History of tonsillectomy History of tooth extraction Hx of cardiac cath Social History household members: spouse Smoking Status: Current some day smoker tobacco type: cigarettes how long ago did patient quit smoking: Patient admits to smoking 1 cigarette to 2 cigarettes weekly second hand exposure: Yes quit status: has quit before alcohol intake: never substance use type: does not use ROS ROS ED Constitutional Constitutional ED: Denies chills or weight loss Eyes Eyes: Denies change in vision or diplopia ENT ENT ED: Denies ear pain, rhinorrhea or sore throat Cardiovascular Cardiovascular: Denies chest pain, orthopnea, palpitations or racing heartbeat Respiratory/Chest Respiratory/Chest: Denies cough, dyspnea or orthopnea Gastrointestinal Gastrointestinal: Denies abdominal pain, diarrhea, nausea or vomiting Genitourinary Genitourinary ED: Denies dysuria, hematuria or urinary frequency Musculoskeletal Musculoskeletal: Denies arthralgias or myalgias Integumentary Reports other Details: See history of present illness ; Denies abscess or rash Neurologic Neurologic: Denies headache(s) or weakness Psychiatric Psychiatric: Denies anxiety, depression, suicidal ideation or suicidal thoughts Endocrine Endocrinology: Denies polydipsia, polyphagia or polyuria Allergic/Immunologic Allergic/Immunologic ED: Denies mouth swelling, tongue swelling or urticaria EXAM Physical Exam Narrative Exam Narrative: Oxygen dependent male sitting on the bed no acute distress Const Vital Signs: 12/18/23 08:32 12/18/23 10:50 12/18/23 11:43 Temperature 97.2 F L 97.8 F Temperature Source Temporal Oral Pulse Rate 109 H 67 81 Respiratory Rate 20 H 16 18 Respiratory Pattern Normal Blood Pressure 165/82 H 126/78 H Blood Pressure Mean 109 94 Blood Pressure Source Monitor Blood Pressure Position Semi-Fowlers Blood Pressure Location Right Arm Pulse Ox 93 98 Oxygen Delivery Method Nasal Cannula Room Air Oxygen Flow Rate (L/min) 3 Positive well nourished, well developed and obese General Appearance ED: well developed Nutritional Appearance: obese HEENT Reports normocephalic, head/scalp atraumatic and moist mucous membranes Eyes PERRL and EOMs intact bilaterally Neck no lymphadenopathy, supple and no JVD Resp normal respiratory effort and clear to auscultation bilaterally Cardio regular rate, regular rhythm and no murmurs GI normal to inspection, nondistended, normoactive bowel sounds and non-tender Palpation: soft Back/Spine no CVA tenderness and normal ROM Extremity Extremity Narrative: There is toeA laceration noted on the plantar surface of the second and the third near the metatarsal tarsal junction. Mild venous bleeding from the third digit. Patient is able to flex the toes when I hold the great toe and fourth and fifth toe steady. However the second digit does not appear to move his well and I am concerned there could be a tendon laceration. no obvious deformity. Neurovascular intact. General Extremety ED: Negative for edema General Extremity: Negative for edema Neuro oriented x3 and CN's II-XII intact bilaterally Sensorium / Orientation: alert Motor Exam: strength 5/5 throughout Psych mental status grossly normal Mood & Affect: Negative for depressed or tearful Skin no rashes or lesions noted Skin Narrative: See extremity exam MDM MDM MDM Narrative Medical decision making narrative: My independent interpretation of the plain films of the toes of the left foot nondisplaced fractures of the base of the proximal phalanx of the second and third toe. I spoke with podiatry because of the open fractures and concern for tendon laceration. They would like to see if we can get this patient taken care of in the operating room. I will speak with medicine and anesthesia. I spoke with the patient he had oatmeal earlier this morning several hours ago. He is concerned that his CO2 level may be high so we we will check a VBG as well as basic labs and EKG in preparation for the OR. Venous blood pH is shows a 7.33 with a significantly elevated CO2 level suggesting that the patient phonically has this elevated level. I spoke with the hospitalist regarding admission. History & Record Review Discussion w/independent historian: Patient and Family Additional record(s) reviewed:: Prior inpatient record, Prior outpatient record, Prior ED visit and Prior labs Lab Data Attestation: I reviewed the patient's lab results. Labs: Laboratory Results - last 24 hr 12/18/23 09:58 WBC 14.0 H RBC 4.57 L Hgb 13.9 Hct 47.8 MCV 104.6 H MCH 30.4 MCHC 29.1 L RDW Std Deviation 47.9 H RDW Coeff of Valerie 12.3 Plt Count 195 MPV 10.4 Immature Gran % (Auto) 0.500 Neut % (Auto) 84.7 H Lymph % (Auto) 8.5 L [place] % (Auto) 6.1 Eos % (Auto) 0.0 Baso % (Auto) 0.2 Absolute Neuts (auto) 11.9 H Absolute Lymphs (auto) 1.19 Nucleated RBC % 0 Sodium 139 Potassium 3.8 Chloride 89 L Carbon Dioxide > 45.0 H* Anion Gap TNP BUN 15 Creatinine 0.69 L Est GFR (MDRD) Af Amer 152 Est GFR (MDRD) Non-Af 126 BUN/Creatinine Ratio 21.6 H Glucose 152 H Calcium 9.9 ABG Data ABG results: ABG 12/18/23 10:18 Specimen Type PAPITO Sample Site Not entered O2 % 3.0 VBG pH 7.33 VBG pO2 50 H VBG HCO3 57 H VBG O2 Sat (Calc) 78 H VBG Base Excess > 30 H POC Mix VBG pCO2 Pt Tmp 108.0 H* O2 Delivery Device Cannula Crit Call To/Read Back Yes Blood Gas Notified Whom Angela Blood Gas Notified Time 10:20:36 Radiography Diagnostic Testing: Clinical Impression(s) from Imaging Studies Toe X-Ray 12/18/23 08:50 IMPRESSION: Nondisplaced fractures at the base of the proximal phalanges of the second and third toes with overlying soft tissue swelling. Electronically Signed: Arsenio Funk MD at 9:16 EST , EKG Initial EKG: Attestation: I personally reviewed and interpreted this EKG as follows: Interpretation: Sinus Tachycardia Comments: Right bundle branch block ventricular rate of 103 bpm Management Discussion w/another healthcare provider: Hospitalist and [employer] (Dr. Chen (Podiatry)) Discharge Plan Dx/Rx/DC Orders Clinical Impression: Open fracture of toe of left foot, Obesities, morbid, Foot laceration, Chronic respiratory failure with hypoxia and hypercapnia Disposition Disposition: Acute Care Hospital [facility]
[2023-12-18] MEDS: Lidocaine 1% (20 ml mdv) 20 ML Vial INFILT (09:02)
[2023-12-18] MEDS: Lidocaine/Epi/Tetracaine 50 ML 1 APPLIC TOPICAL (09:03)
--- NOTE | 2023-12-18 09:53 | NURSING ---
DR ELINOR KILPATRICK
[2023-12-18 10:10] LABS: Absolute Lymphocyte Count 1.19 X10^3/uL (0.83-4.51); Absolute Neutrophil Count 11.9 X10^3/uL (2.0-7.7); Basophil# 0.03 X10^3/uL; Basophil% 0.2 % (0-1); Hematocrit 47.8 % (40-54); Hemoglobin 13.9 g/dL (13.0-16.5); Lymphocyte # 1.19 X10^3/ul (0.83-4.51); Lymphocyte % 8.5 % (19-41); Mean Corp Hgb Conc 29.1 g/dL (32-36); Mean Corpuscular Hgb 30.4 pg (27.0-32.0); Mean Corpuscular Volume 104.6 fL (80-94); Mean Platelet Vol. 10.4 fl (6.2-12.0); Monocyte# 0.85 X10^3/uL; Monocyte% 6.1 % (0-10); NRBC Flagged by Analyzer 0 % (0-5); Neutrophil # 11.86 X10^3/uL (2.7-7.7); Neutrophil % 84.7 % (47-70); Platelet Count 195 K/mm3 (150-450); RBC Distribution Width CV 12.3 % (11.6-14.6); RBC Distribution Width SD 47.9 fl (35.1-43.9); Red Blood Count 4.57 M/mm3 (4.6-6.2)
[2023-12-18 10:22] LABS: Blood Gas Specimen Type VEN; O2 Delivery Device Cannula; SITE Not entered; Time Given 10:20:36; VBG BASE EXCESS > 30 mmol/L (-1.0-3.5); VBG Bicarbonate 57 mmol/L (22-26); VBG PO2 50 mmHg (25-40); VBG SO2 78 % (50-70); VBG pH 7.33 (7.32-7.42)
[2023-12-18 10:41] LABS: BUN 15 mg/dL (7-18); BUN/Creat Ratio 21.6 RATIO (10-20); Calcium,Total 9.9 mg/dL (8.5-10.1); Carbon Dioxide > 45.0 mmol/L (21.0-32.0); Chloride 89 mmol/L (98-107); Creatinine, Serum 0.69 mg/dL (0.70-1.30); EST Glomerular Filtration Rate 126 mL/min (>60); Est Glom Filt Rate - Afr Amer 152 mL/min (>60); Glucose 152 mg/dL (74-106); Potassium 3.8 mmol/L (3.5-5.1); Sodium Level 139 mmol/L (136-145)
[2023-12-18] MEDS: Ipratropium/Albuterol Sulfate 3 ML AMPUL.NEB INHALATION (11:41)
--- NOTE | 2023-12-18 12:13 | PN.HOSP_ITS ---
Objective Data Objective Data Vital Signs: Vital Signs Temp Pulse Resp BP Pulse Ox O2 Del Method O2 Flow Rate 97.8 F 81 18 126/78 H 98 Room Air 3 12/18/23 10:50 12/18/23 11:43 12/18/23 11:43 12/18/23 10:50 12/18/23 10:50 12/18/23 10:50 12/18/23 08:32 Oxygen Flow Rate (L/min) 3 Oxygen Delivery Method Room Air Weight: 113.398 kg Body Mass Index (BMI) 33.0 Lab / Micro Data 12/18/23 09:58 12/18/23 09:58 Labs: Laboratory Results - last 24 hr 12/18/23 09:58: WBC 14.0 H, RBC 4.57 L, Hgb 13.9, Hct 47.8, MCV 104.6 H, MCH 30.4, MCHC 29.1 L, RDW Std Deviation 47.9 H, RDW Coeff of Valerie 12.3, Plt Count 195, MPV 10.4, Immature Gran % (Auto) 0.500, Neut % (Auto) 84.7 H, Lymph % (Auto) 8.5 L, [place] % (Auto) 6.1, Eos % (Auto) 0.0, Baso % (Auto) 0.2, Absolute Neuts (auto) 11.9 H, Absolute Lymphs (auto) 1.19, Nucleated RBC % 0, Sodium 139, Potassium 3.8, Chloride 89 L, Carbon Dioxide > 45.0 H*, Anion Gap TNP, BUN 15, Creatinine 0.69 L, Est GFR (MDRD) Af Amer 152, Est GFR (MDRD) Non-Af 126, BUN/Creatinine Ratio 21.6 H, Glucose 152 H, Calcium 9.9 ABG Data ABG results: ABG 12/18/23 10:18 Specimen Type PAPITO Sample Site Not entered O2 % 3.0 VBG pH 7.33 VBG pO2 50 H VBG HCO3 57 H VBG O2 Sat (Calc) 78 H VBG Base Excess > 30 H POC Mix VBG pCO2 Pt Tmp 108.0 H* O2 Delivery Device Cannula Crit Call To/Read Back Yes Blood Gas Notified Whom Angela Blood Gas Notified Time 10:20:36 Radiography Diagnostic Testing: Radiology Impression Toe X-Ray 12/18/23 08:50 IMPRESSION: Nondisplaced fractures at the base of the proximal phalanges of the second and third toes with overlying soft tissue swelling. Electronically Signed: Arsenio Funk MD at 9:16 EST , Assessment & Plan Assessment/Plan PLAN: Plan Patient is a 52-year-old gentleman with multiple comorbidities who presented with progressive shortness of breath and assessment of COPD with acute exacerbation made admitted to intensive care unit where patient is currently being managed 1. COPD with acute exacerbation ? Admitted to the intensive care unit patient managed with systemic steroids, antibiotics, aerosol treatment as well as BiPAP therapy and oxygen which has been titrated to keep saturation greater than 90. Patient is followed by pulmonary medicine as outpatient consult placed to Dr. Fernandes 2. Patient chronic hypoxic respiratory failure ? Patient is on 2 to 4 L of oxygen at baseline 3. History of pulmonary embolism ? Diagnosed in October 2022 patient is on systemic anticoagulation with apixaban did continue 4. Hypertension - Blood pressure controlled, home medications continued with dose adjustment as needed 5. Obstructive sleep apnea ? Patient is on BiPAP at night 6. Chronic congestive heart failure with preserved ejection fraction ?-Echocardiogram 04/13/2021 shows an EF of 65% with stage II diastolic dysfunction, structurally normal valves and a pulmonary artery systolic pressure of 60 mmHg. Patient is on diuretics did continue 7. Tobacco dependence - Counseled on cessation, offered nicotine patch for tobacco cravings 8. Seasonal allergies -Continue home Singulair 9. Depression/anxiety -Patient is on Wellbutrin as well as Zoloft continued 10. DVT prophylaxis ? Already on apixaban Time spent in the patient's overall evaluation,decision-making process, review of diagnostic data, adjustment of management, discussion with other providers, nursing nursing and ancillary staff involved in patient's care documentation, 50 Minutes
--- NOTE | 2023-12-18 12:22 | PCM.HP.STD ---
HPI - General General Date of Admission: 12/18/23 Date of Service: 12/18/23 Chief Complaint: Left foot pain HPI Narrative HARJIT ALBERTS, is a 53 M who presents with left foot pain. Patient states he tripped while trying to prevent a fall. He apparently hit his left leg against a dog gate and did notice some blood subsequently. Presented to the emergency department imaging studies involving the left foot did not demonstrate Nondisplaced fractures at the base of the proximal phalanges of the second and third toes with overlying soft tissue swelling. Orthopedic surgeon on-call was notified who recommended evaluation by the medicine team. Patient's who was with her noted increasing lethargy involving patient. He had apparently been experiencing jerking movement. Patient's suspected patient had elevated CO2 which was confirmed on VBG obtained in the ER. Decision was therefore made to admit patient to medicine service with consultation placed orthopedic surgery [facility] Medical History Anxiety and depression BiPAP (biphasic positive airway pressure) dependence Blood disorder Cardiology follow-up encounter Chronic hypoxemic respiratory failure Closed fracture dislocation of joint of left lower extremity Closed fracture of left tibial plateau Congestive heart failure COPD (chronic obstructive pulmonary disease) Former smoker History of echocardiogram History of edema History of pain when walking HTN (hypertension) Hypertension Incarcerated umbilical hernia Obesities, morbid Obesity hypoventilation syndrome On home oxygen therapy LAYLA (obstructive sleep apnea) Other specified injury of left quadriceps muscle, fascia and tendon, initial encounter Pulmonary embolism Seasonal allergies Severe persistent asthma Stage 4 very severe COPD by GOLD classification Tobacco dependence Uses wheelchair Home Medications spironolactone 25 mg tablet 25 mg PO BID FLUID RETENTION/BLOOD PRESSURE 12/02/15 [History Last Taken 12/17/23] bupropion HCl 150 mg 24 hr tablet, extended release (Wellbutrin XL) 150 mg PO DAILY DEPRESSION 10/11/21 [History Last Taken 12/17/23] cyanocobalamin (vitamin B-12) 500 mcg tablet 500 mcg PO DAILY SUPPLEMENT 11/08/21 [History Last Taken 01/01/23] sertraline 100 mg tablet 100 mg PO DAILY DEPRESSION 01/23/22 [History Last Taken 01/01/23] montelukast 10 mg tablet (Singulair) 10 mg PO QPM COPD #30 tabs 06/30/22 [Rx Last Taken 12/17/23] mepolizumab 100 mg/mL subcutaneous auto-injector (Nucala) 300 mg subcut Q4W asthma 11/05/22 [History Last Taken 12/10/23] losartan 25 mg tablet 25 mg PO DAILY blood pressure #30 tabs 11/08/22 [Rx Last Taken 12/17/23] torsemide 20 mg tablet 20 mg PO BID FLUID RETENTION #60 tabs 11/08/22 [Rx Last Taken 12/17/23] furosemide 40 mg tablet 40 mg PO DAILY PRN FLUID RETENTION 01/01/23 [History Last Taken 12/31/22] albuterol sulfate 2.5 mg/3 mL (0.083 %) solution for nebulization 2.5 mg (3 mL) inhalation Q4H PRN shortness of breath or wheezing #360 mL 05/23/23 [Rx Last Taken 12/18/23] albuterol sulfate 90 mcg/actuation aerosol inhaler (Ventolin HFA) 2 puff inhalation Q4H PRN shortness of breath or wheezing #18 grams 05/23/23 [Rx Last Taken 12/17/23] cetirizine 10 mg tablet 10 mg PO DAILY allergies #90 tabs 05/30/23 [Rx Last Taken 12/17/23] metoprolol tartrate 50 mg tablet 50 mg PO BID BLOOD PRESSURE 06/10/23 [History Last Taken Unknown] apixaban 5 mg tablet (Eliquis) 5 mg PO BID BLOOD THINNER #60 tabs 07/10/23 [Rx Last Taken Unknown] cholecalciferol (vitamin D3) 125 mcg (5,000 unit) disintegrating tablet 125 mcg PO QODAY SUPPLEMENT 08/05/23 [History Last Taken 12/17/23] budesonide 1 mg/2 mL suspension for nebulization 1 mg (2 mL) inhalation BID WHEEZING/SHORTNESS OF BREATH #60 mL 08/27/23 [Rx Last Taken 12/17/23] budesonide-formoterol HFA 160 mcg-4.5 mcg/actuation aerosol inhaler (Symbicort) 2 puff inhalation BID SHORTNESS OF BREATH 10/08/23 [History Last Taken 12/17/23] gabapentin 100 mg capsule 200 mg PO QHS NERVE PAIN 10/24/23 [History Last Taken 12/17/23] fluticasone propionate 50 mcg/actuation nasal spray,suspension 2 spray intranasal DAILY PRN seasonal allergies 12/18/23 [History Last Taken Unknown] prednisone 20 mg tablet 40 mg PO DAILY shortness of breath 12/18/23 [History Last Taken 12/17/23] Allergy/AdvReac Type Severity Reaction Status Date / Time clarithromycin [From Biaxin] Allergy Hives Verified 12/18/23 08:32 Penicillins Allergy Hives Verified 12/18/23 08:32 Family History Mother Diabetes Breast cancer Heart disease Hypertension COPD (chronic obstructive pulmonary disease) Asthma Father Hypertension CVA (cerebral vascular accident) Surgical History History of hernia repair (~08/2018) History of tonsillectomy History of tooth extraction Hx of cardiac cath Social History household members: spouse Smoking Status: Current some day smoker tobacco type: cigarettes how long ago did patient quit smoking: Patient admits to smoking 1 cigarette to 2 cigarettes weekly second hand exposure: Yes quit status: has quit before alcohol intake: never substance use type: does not use ROS ROS Narrative GENERAL: denies fever, chills, night sweats, weight loss, anorexia HEENT: denies headache, sinus congestion, or drainage, dysphagia RESPIRATORY: shortness of breath, dyspnea on exertion CARDIAC: denies chest pain, palpitations, orthopnea, PND GASTROINTESTINAL: denies abdominal pain, nausea, vomiting, melena, GENITOURINARY: denies dysuria, urgency, frequency, heamaturia EXTREMITY: denies swelling MUSCULOSKELETAL: Left foot pain NEUROLOGIC: denies focal numbness, weakness, tingling HEMATOLOGIC: denies easy bruising and/or hemorrhage INTEGUMENT: denies rashes PSYCHIATRIC: denies suicidal or homicidal ideation Vital Signs Vital Signs Vital Signs: 12/18/23 08:32 12/18/23 10:50 12/18/23 11:43 Temperature 97.2 F L 97.8 F Temperature Source Temporal Oral Pulse Rate 109 H 67 81 Respiratory Rate 20 H 16 18 Respiratory Pattern Normal Blood Pressure 165/82 H 126/78 H Blood Pressure Mean 109 94 Blood Pressure Source Monitor Blood Pressure Position Semi-Fowlers Blood Pressure Location Right Arm Pulse Ox 93 98 Oxygen Delivery Method Nasal Cannula Room Air Oxygen Flow Rate (L/min) 3 Weight Weight: 113.398 kg Body Mass Index (BMI) 33.0 Physical Exam Narrative GENERAL: cooperative with involuntary jerks HEENT: Atraumatic; normocephalic EYES; Anicteric, Normal Conjunctiva NECK; supple, normal thyroid, RESPIRATORY: Diminished to auscultation CARDIOVASCULAR: Regular S1 S2, GI: soft, normoactive bowel sounds, : No Renal angle tenderness; EXTREMITIES: Left foot with areas of bleeding, MUSCULOSKELETAL: no muscle wasting NEURO: Awake; no lateralizing signs. SKIN: No Rash PSYCH; Flat affect Results Lab / Micro Data 12/18/23 09:58 12/18/23 09:58 Labs: Laboratory Results - last 24 hr 12/18/23 09:58: WBC 14.0 H, RBC 4.57 L, Hgb 13.9, Hct 47.8, MCV 104.6 H, MCH 30.4, MCHC 29.1 L, RDW Std Deviation 47.9 H, RDW Coeff of Valerie 12.3, Plt Count 195, MPV 10.4, Immature Gran % (Auto) 0.500, Neut % (Auto) 84.7 H, Lymph % (Auto) 8.5 L, Rush % (Auto) 6.1, Eos % (Auto) 0.0, Baso % (Auto) 0.2, Absolute Neuts (auto) 11.9 H, Absolute Lymphs (auto) 1.19, Nucleated RBC % 0, Sodium 139, Potassium 3.8, Chloride 89 L, Carbon Dioxide > 45.0 H*, Anion Gap TNP, BUN 15, Creatinine 0.69 L, Est GFR (MDRD) Af Amer 152, Est GFR (MDRD) Non-Af 126, BUN/Creatinine Ratio 21.6 H, Glucose 152 H, Calcium 9.9 ABG Data ABG results: ABG 12/18/23 10:18 Specimen Type PAPITO Sample Site Not entered O2 % 3.0 VBG pH 7.33 VBG pO2 50 H VBG HCO3 57 H VBG O2 Sat (Calc) 78 H VBG Base Excess > 30 H POC Mix VBG pCO2 Pt Tmp 108.0 H* O2 Delivery Device Cannula Crit Call To/Read Back Yes Blood Gas Notified Whom Angela Blood Gas Notified Time 10:20:36 Imagaing Radiology Impression Toe X-Ray 12/18/23 08:50 IMPRESSION: Nondisplaced fractures at the base of the proximal phalanges of the second and third toes with overlying soft tissue swelling. Electronically Signed: Arsenio Funk MD at 9:16 EST , Assessment & Plan Assessment/Plan (1) Foot laceration: (2) Chronic respiratory failure with hypoxia and hypercapnia: (3) Respiratory failure with hypoxia and hypercapnia: PLAN: Plan HARJIT ALBERTS, is a 53 M who presents with left foot pain. Patient states he tripped while trying to prevent a fall. He apparently hit his left leg against a dog gate and did notice some blood subsequently. Presented to the emergency department imaging studies involving the left foot did not demonstrate Nondisplaced fractures at the base of the proximal phalanges of the second and third toes with overlying soft tissue swelling. Patient admitted to the medical service given his 1. Fall with nondisplaced fractures involving the base of the proximal phalanges of the second and third toe of the left foot ? Patient admitted to a monitored bed, managed with immobilization pain management with consultation placed to orthopedic surgery. Plan is for patient to undergo surgical intervention 2. Acute metabolic encephalopathy ? Secondary to acute hypoxic and hypercapnic respiratory failure with significant hypercarbia. Plan is for patient to be placed on NIV prior to any surgical intervention 3. COPD with acute exacerbation ? Admitted to the intensive care unit patient managed with systemic steroids, antibiotics, aerosol treatment as well as BiPAP therapy and oxygen which has been titrated to keep saturation greater than 90. Patient is followed by pulmonary medicine as outpatient 4. Chronic hypoxic respiratory failure ? Patient is on 2 to 4 L of oxygen at baseline 5. History of pulmonary embolism ? Diagnosed in October 2022 patient was previously treated with systemic anticoagulation with apixaban he came off it due to cost 6. Hypertension - Blood pressure controlled, home medications continued with dose adjustment as needed 7. Obstructive sleep apnea ? Patient is on BiPAP at night 8. Chronic congestive heart failure with preserved ejection fraction ?-Echocardiogram 04/13/2021 shows an EF of 65% with stage II diastolic dysfunction, structurally normal valves and a pulmonary artery systolic pressure of 60 mmHg. Patient is on diuretics did continue 9. Tobacco dependence - Counseled on cessation, offered nicotine patch for tobacco cravings 10. Seasonal allergies -Continue home Singulair 11. Depression/anxiety -Patient is on Wellbutrin as well as Zoloft continued 10. DVT prophylaxis ?Plan is to initiate systemic anticoagulation following surgical intervention Advance planning; did discuss with the patient and family regarding advanced directives as well as CODE STATUS. Did explain the various scenarios involved ( FULL CODE, DNR CCA, DNR CCA with no intubation, and DNR CC and what each meant) patient elected to to remain full code with CPR and intubation if warranted. Order was placed. Time spent on discussion 18 minutes. Time spent in the patient's overall evaluation,decision-making process, review of diagnostic data, adjustment of management, discussion with other providers, nursing nursing and ancillary staff involved in patient's care documentation, 75 Minutes Charges/Coding Visit Charges Inpatient E&M: 48848 Init Hosp L3 Procedures Hospitalists Procedures: 55326 Advncd Care Plan addl 30 Min
--- NOTE | 2023-12-18 13:19 | NURSING ---
PCU KITTOE HYPERCAPNIA, FOOT FRACTURE
--- NOTE | 2023-12-18 15:20 | RAD_ITS ---
STUDY: X-RAY CHEST REASON FOR EXAM: Male, 53 years old. COPD-496 TECHNIQUE: AP and lateral views of the chest. COMPARISON: Comparison is made with prior study dated October 08, 2023. FINDINGS: EKG electrodes are seen. There is hyperinflation of the lungs consistent with chronic obstructive lung disease (COPD). There is no demonstrated pleural abnormality. Normal size heart. Normal mediastinum and lani. There is prominence of the pulmonary hilar arteries without peripheral pulmonary vascular congestion, suggesting pulmonary hypertension. Normal visualized aortic arch and descending thoracic aorta. Normal visualized thoracic spine. Normal visualized ribs, clavicles, and shoulders. There is no demonstrated abnormality of the visualized soft tissue structures of the upper abdomen. RAD/Chest PA and Lateral IMPRESSION: Hyperinflation. Prominence of both pulmonary arteries suggestive of pulmonary hypertension. Electronically Signed: Arsenio Funk MD at 16:10 EST ,
[2023-12-18] MEDS: Acetaminophen 500 MG Tablet 1000 MG PO ×2 (16:32→20:17)
[2023-12-18] MEDS: oxyCODONE 5 MG Tablet 10 MG PO (17:54)
[2023-12-18] MEDS: Spironolactone 25 MG Tablet PO (20:15)
[2023-12-18] MEDS: guaiFENesin 1,200 MG Tablet 1200 MG PO (20:16)
[2023-12-18] MEDS: Metoprolol Tartrate 50 MG Tablet PO (20:16)
[2023-12-18] MEDS: Gabapentin 100 MG Capsule 200 MG PO (20:17)
[2023-12-19] VITALS (17 sets, daily range): BP systolic 110–149; BP diastolic 56–98; PULSE 51–98; RESP 14–22; TEMP 36.1–36.8; O2SAT 91–100
[2023-12-19] MEDS: Spironolactone 25 MG Tablet PO (06:02)
[2023-12-19] MEDS: Losartan Potassium 25 MG Tablet PO (06:03)
[2023-12-19] MEDS: Acetaminophen 500 MG Tablet 1000 MG PO (06:03)
[2023-12-19] MEDS: Metoprolol Tartrate 50 MG Tablet PO (06:03)
[2023-12-19 06:47] LABS: VBG TCO2 > 50 mmol/L (23-33)
[2023-12-19 07:52] LABS: Absolute Lymphocyte Count 2.25 X10^3/uL (0.83-4.51); Absolute Neutrophil Count 7.4 X10^3/uL (2.0-7.7); Basophil# 0.07 X10^3/uL; Basophil% 0.6 % (0-1); Eosinophil# 0.06 X10^3/uL; Eosinophils% 0.6 % (0-5); Hematocrit 47.4 % (40-54); Hemoglobin 13.8 g/dL (13.0-16.5); Lymphocyte # 2.25 X10^3/ul (0.83-4.51); Lymphocyte % 20.8 % (19-41); Mean Corp Hgb Conc 29.1 g/dL (32-36); Mean Corpuscular Hgb 30.9 pg (27.0-32.0); Mean Corpuscular Volume 106.3 fL (80-94); Mean Platelet Vol. 10.8 fl (6.2-12.0); Monocyte# 1.06 X10^3/uL; Monocyte% 9.8 % (0-10); NRBC Flagged by Analyzer 0 % (0-5); Neutrophil # 7.37 X10^3/uL (2.7-7.7); Neutrophil % 67.9 % (47-70); Platelet Count 209 K/mm3 (150-450); RBC Distribution Width CV 12.5 % (11.6-14.6); RBC Distribution Width SD 49.5 fl (35.1-43.9); Red Blood Count 4.46 M/mm3 (4.6-6.2); White Blood Count 10.8 K/mm3 (4.4-11.0)
[2023-12-19 08:00] LABS: International Normalized Ratio 0.9; Prothrombin Time (Protime)PT. 12.1 SECONDS (11.7-14.9)
[2023-12-19 08:01] LABS: Partial Thromboplast Time 27.6 Seconds (24.1-36.2)
--- NOTE | 2023-12-19 08:16 | PCM.PN.HOSP ---
Reason for Visit Reason for Visit: Diagnoses Chronic respiratory failure with hypoxia (12/18/23) Chronic respiratory failure with hypercapnia (12/18/23) Respiratory failure, unspecified with hypoxia (12/18/23) Respiratory failure, unspecified with hypercapnia (12/18/23) Laceration without foreign body, unspecified foot, initial encounter (12/18/23) Subjective Subjective Patient is a 53 M who presents with left foot pain, imaging studies involving the left foot did not demonstrate Nondisplaced fractures at the base of the proximal phalanges of the second and third toes with overlying soft tissue swelling. Objective Data Objective Data Vital Signs: Vital Signs Temp Pulse Resp BP Pulse Ox O2 Del Method O2 Flow Rate 97.4 F L 70 18 149/86 H 95 Bi-pap 4 12/19/23 06:01 12/19/23 06:03 12/19/23 06:01 12/19/23 06:03 12/19/23 06:01 12/19/23 06:01 12/18/23 20:03 FiO2 35 12/19/23 06:01 Oxygen Flow Rate (L/min) 4 Oxygen Delivery Method Bi-pap Weight: 149 kg Body Mass Index (BMI) 44.5 Intake & Output: Intake and Output for Last 24 Hours 12/17/23 12/18/23 12/19/23 23:59 23:59 23:59 Intake Total 720 / 720 Balance 720 / 720 Lab / Micro Data 12/19/23 07:20 12/18/23 09:58 Labs: Laboratory Results - last 24 hr 12/18/23 09:58: WBC 14.0 H, RBC 4.57 L, Hgb 13.9, Hct 47.8, MCV 104.6 H, MCH 30.4, MCHC 29.1 L, RDW Std Deviation 47.9 H, RDW Coeff of Valerie 12.3, Plt Count 195, MPV 10.4, Immature Gran % (Auto) 0.500, Neut % (Auto) 84.7 H, Lymph % (Auto) 8.5 L, Gray % (Auto) 6.1, Eos % (Auto) 0.0, Baso % (Auto) 0.2, Absolute Neuts (auto) 11.9 H, Absolute Lymphs (auto) 1.19, Nucleated RBC % 0, Sodium 139, Potassium 3.8, Chloride 89 L, Carbon Dioxide > 45.0 H*, Anion Gap TNP, BUN 15, Creatinine 0.69 L, Est GFR (MDRD) Af Amer 152, Est GFR (MDRD) Non-Af 126, BUN/Creatinine Ratio 21.6 H, Glucose 152 H, Calcium 9.9 12/19/23 07:20: WBC 10.8, RBC 4.46 L, Hgb 13.8, Hct 47.4, MCV 106.3 H, MCH 30.9, MCHC 29.1 L, RDW Std Deviation 49.5 H, RDW Coeff of Valerie 12.5, Plt Count 209, MPV 10.8, Immature Gran % (Auto) 0.300, Neut % (Auto) 67.9, Lymph % (Auto) 20.8, Gray % (Auto) 9.8, Eos % (Auto) 0.6, Baso % (Auto) 0.6, Absolute Neuts (auto) 7.4, Absolute Lymphs (auto) 2.25, Nucleated RBC % 0, PT 12.1, INR 0.9, APTT 27.6 ABG Data ABG results: ABG 12/18/23 10:18 Specimen Type PAPITO Sample Site Not entered O2 % 3.0 VBG pH 7.33 VBG pO2 50 H VBG HCO3 57 H VBG Total CO2 > 50 H VBG O2 Sat (Calc) 78 H VBG Base Excess > 30 H POC Mix VBG pCO2 Pt Tmp 108.0 H* O2 Delivery Device Cannula Crit Call To/Read Back Yes Blood Gas Notified Whom Angela Blood Gas Notified Time 10:20:36 Radiography Diagnostic Testing: Radiology Impression Toe X-Ray 12/18/23 08:50 IMPRESSION: Nondisplaced fractures at the base of the proximal phalanges of the second and third toes with overlying soft tissue swelling. Electronically Signed: Arsenio Funk MD at 9:16 EST , Chest X-Ray 12/18/23 15:20 IMPRESSION: Hyperinflation. Prominence of both pulmonary arteries suggestive of pulmonary hypertension. Electronically Signed: Arsenio Funk MD at 16:10 EST , Physical Exam Narrative GENERAL: cooperative HEENT: Atraumatic; normocephalic EYES; Anicteric, Normal Conjunctiva NECK; supple, normal thyroid, RESPIRATORY: Diminished to auscultation CARDIOVASCULAR: Regular S1 S2, GI: soft, normoactive bowel sounds, : No Renal angle tenderness; EXTREMITIES: Left foot with areas of bleeding, MUSCULOSKELETAL: no muscle wasting NEURO: Awake; no lateralizing signs. SKIN: No Rash PSYCH; Flat affect Assessment & Plan Assessment/Plan (1) Foot laceration: (2) Chronic respiratory failure with hypoxia and hypercapnia: (3) Respiratory failure with hypoxia and hypercapnia: PLAN: Plan HARJIT ALBERTS, is a 53 M who presents with left foot pain. Patient states he tripped while trying to prevent a fall. He apparently hit his left leg against a dog gate and did notice some blood subsequently. Presented to the emergency department imaging studies involving the left foot did not demonstrate Nondisplaced fractures at the base of the proximal phalanges of the second and third toes with overlying soft tissue swelling. 1. Fall with nondisplaced fractures involving the base of the proximal phalanges of the second and third toe of the left foot ? Patient admitted to a monitored bed, managed with immobilization pain management with consultation placed to orthopedic surgery. Plan is for patient to undergo surgical intervention ? 12/19/2023; Dr. Chen with podiatry was consulted from the ED on 12/18/2023, awaiting for his evaluation and intervention 2. Acute metabolic encephalopathy ? Secondary to acute hypoxic and hypercapnic respiratory failure with significant hypercarbia. Plan is for patient to be placed on NIV prior to any surgical intervention ? 12/19/2023 patient back to baseline. Repeated ABGs 3. COPD with acute exacerbation ? Admitted to the intensive care unit patient managed with systemic steroids, antibiotics, aerosol treatment as well as BiPAP therapy and oxygen which has been titrated to keep saturation greater than 90. Patient is followed by pulmonary medicine as outpatient 4. Chronic hypoxic respiratory failure ? Patient is on 2 to 4 L of oxygen at baseline. Repeated ABGs 5. History of pulmonary embolism ? Diagnosed in October 2022 patient was previously treated with systemic anticoagulation with apixaban he came off it due to cost 6. Hypertension - Blood pressure controlled, home medications continued with dose adjustment as needed 7. Obstructive sleep apnea ? Patient is on BiPAP at night 8. Chronic congestive heart failure with preserved ejection fraction ?-Echocardiogram 04/13/2021 shows an EF of 65% with stage II diastolic dysfunction, structurally normal valves and a pulmonary artery systolic pressure of 60 mmHg. Patient is on diuretics did continue 9. Tobacco dependence - Counseled on cessation, offered nicotine patch for tobacco cravings 10. Seasonal allergies -Continue home Singulair 11. Depression/anxiety -Patient is on Wellbutrin as well as Zoloft continued 10. DVT prophylaxis ?Plan is to initiate systemic anticoagulation following surgical intervention Time spent in the patient's overall evaluation,decision-making process, review of diagnostic data, adjustment of management, discussion with other providers, nursing nursing and ancillary staff involved in patient's care documentation, 50 Minutes Charges/Coding Visit Charges Inpatient E&M: 85091 [facility] Hosp L3
[2023-12-19] MEDS: Albuterol 2.5 MG/3 ML VIAL.NEB. INHALATION (09:28)
--- NOTE | 2023-12-19 09:29 | PCM.CONS.GEN ---
Assessment & Plan Assessment/Plan (1) Open fracture of toe of left foot: QUALIFIERS: Encounter type: initial encounter Toe: lesser toe Phalanx: proximal Fracture alignment: nondisplaced Qualified Code(s): S92.515B - Nondisplaced fracture of proximal phalanx of left lesser toe(s), initial encounter for open fracture PLAN: Patient was examined and evaluated. All findings were discussed with the patient. All questions were answered to the patient's satisfaction. Radiographs: Left foot toe view radiographs demonstrate nondisplaced fractures to the base of the proximal phalanx of the second and third digit with overall soft tissue swelling. No evidence of emphysema. After examination the patient shows evidence of full-thickness laceration to the plantar aspect of the second and third digit. There is no sign of infection during physical exam. Patient is currently NPO. Will plan for surgical I&D/washout with delayed primary closure to the plantar aspect of the second and third digit, today 12/19/2023. In regards to the nondisplaced fractures of the proximal phalanx the patient will not have his toes pinned secondary to fall risk. Patient has been added to the add-on schedule to follow my afternoon case. All risk and benefits were discussed with the patient in great detail. He is ready to move forward with surgery. Patient has been cleared by medicine team. Medicine: On board, medical management WBC: 14.0 -> 10.8 Please reach out to Dr. Chen with any questions or concerns. Thank you for the consultation! (2) Foot laceration: QUALIFIERS: Encounter type: initial encounter Laterality: left Qualified Code(s): S91.312A - Laceration without foreign body, left foot, initial encounter HPI Consult Data Date of Consult: 12/19/23 HPI Narrative Reason for Consultation: Left foot toe lacerations HPI Narrative: HARJIT ALBERTS, is a 53 M who presented to the emergency room at for left foot laceration. Patient admitted to tripping over his dog gate yesterday morning where he sustained injuries to his left toes specifically the second and third toe. He admits that there was a lot of bleeding because he cut the bottom of his toes. He admits that he can wiggle his toes and it was seen today at bedside. The patient admits he is not on any blood thinners at this time. He mitts he does have pain to the second and third toe at the level of the lacerations. He was also diagnosed with phalanx fractures to the second and third digit. Podiatry was consulted for care of the open fractures of the second and third digit. Will plan for operating room washout and delayed primary closure. Risk and benefits were discussed with patient great detail. He is ready to move forward with surgery. He is currently NPO. He denies constitutional symptoms. No other pedal complaints at this time. [facility] Medical History Anxiety and depression BiPAP (biphasic positive airway pressure) dependence Blood disorder Cardiology follow-up encounter Chronic hypoxemic respiratory failure Closed fracture dislocation of joint of left lower extremity Closed fracture of left tibial plateau Congestive heart failure COPD (chronic obstructive pulmonary disease) Former smoker History of echocardiogram History of edema History of pain when walking HTN (hypertension) Hypertension Incarcerated umbilical hernia Obesities, morbid Obesity hypoventilation syndrome On home oxygen therapy LAYLA (obstructive sleep apnea) Other specified injury of left quadriceps muscle, fascia and tendon, initial encounter Pulmonary embolism Seasonal allergies Severe persistent asthma Stage 4 very severe COPD by GOLD classification Tobacco dependence Uses wheelchair Home Medications spironolactone 25 mg tablet 25 mg PO BID FLUID RETENTION/BLOOD PRESSURE 12/02/15 [History Last Taken 12/17/23] bupropion HCl 150 mg 24 hr tablet, extended release (Wellbutrin XL) 150 mg PO DAILY DEPRESSION 10/11/21 [History Last Taken 12/17/23] cyanocobalamin (vitamin B-12) 500 mcg tablet 500 mcg PO DAILY SUPPLEMENT 11/08/21 [History Last Taken 01/01/23] sertraline 100 mg tablet 100 mg PO DAILY DEPRESSION 01/23/22 [History Last Taken 01/01/23] montelukast 10 mg tablet (Singulair) 10 mg PO QPM COPD #30 tabs 06/30/22 [Rx Last Taken 12/17/23] mepolizumab 100 mg/mL subcutaneous auto-injector (Nucala) 300 mg subcut Q4W asthma 11/05/22 [History Last Taken 12/10/23] losartan 25 mg tablet 25 mg PO DAILY blood pressure #30 tabs 11/08/22 [Rx Last Taken 12/17/23] torsemide 20 mg tablet 20 mg PO BID FLUID RETENTION #60 tabs 11/08/22 [Rx Last Taken 12/17/23] furosemide 40 mg tablet 40 mg PO DAILY PRN FLUID RETENTION 01/01/23 [History Last Taken 12/31/22] albuterol sulfate 2.5 mg/3 mL (0.083 %) solution for nebulization 2.5 mg (3 mL) inhalation Q4H PRN shortness of breath or wheezing #360 mL 05/23/23 [Rx Last Taken 12/18/23] albuterol sulfate 90 mcg/actuation aerosol inhaler (Ventolin HFA) 2 puff inhalation Q4H PRN shortness of breath or wheezing #18 grams 05/23/23 [Rx Last Taken 12/17/23] cetirizine 10 mg tablet 10 mg PO DAILY allergies #90 tabs 05/30/23 [Rx Last Taken 12/17/23] metoprolol tartrate 50 mg tablet 50 mg PO BID BLOOD PRESSURE 06/10/23 [History Last Taken Unknown] apixaban 5 mg tablet (Eliquis) 5 mg PO BID BLOOD THINNER #60 tabs 07/10/23 [Rx Last Taken Unknown] cholecalciferol (vitamin D3) 125 mcg (5,000 unit) disintegrating tablet 125 mcg PO QODAY SUPPLEMENT 08/05/23 [History Last Taken 12/17/23] budesonide 1 mg/2 mL suspension for nebulization 1 mg (2 mL) inhalation BID WHEEZING/SHORTNESS OF BREATH #60 mL 08/27/23 [Rx Last Taken 12/17/23] budesonide-formoterol HFA 160 mcg-4.5 mcg/actuation aerosol inhaler (Symbicort) 2 puff inhalation BID SHORTNESS OF BREATH 10/08/23 [History Last Taken 12/17/23] gabapentin 100 mg capsule 200 mg PO QHS NERVE PAIN 10/24/23 [History Last Taken 12/17/23] fluticasone propionate 50 mcg/actuation nasal spray,suspension 2 spray intranasal DAILY PRN seasonal allergies 12/18/23 [History Last Taken Unknown] prednisone 20 mg tablet 40 mg PO DAILY shortness of breath 12/18/23 [History Last Taken 12/17/23] Allergy/AdvReac Type Severity Reaction Status Date / Time clarithromycin [From Biaxin] Allergy Hives Verified 12/18/23 08:32 Penicillins Allergy Hives Verified 12/18/23 08:32 Family History Mother Diabetes Breast cancer Heart disease Hypertension COPD (chronic obstructive pulmonary disease) Asthma Father Hypertension CVA (cerebral vascular accident) Surgical History History of hernia repair (~08/2018) History of tonsillectomy History of tooth extraction Hx of cardiac cath Social History household members: spouse Smoking Status: Current some day smoker tobacco type: cigarettes how long ago did patient quit smoking: Patient admits to smoking 1 cigarette to 2 cigarettes weekly second hand exposure: Yes quit status: has quit before alcohol intake: never substance use type: does not use Physical Exam Narrative Vascular: No evidence of erythema, proximal streaking or sign of infection.Vascular: DP and PT pulse are palpable. CFT is brisk. Nonpitting edema appreciated to second third digit of the left foot. Neurological: Light touch and epicritic station is intact. Patient responds to painful stimuli. Dermatological: Nonpitting edema appreciated to the second third digit of the left foot. No evidence of erythema. Evidence of maceration to the lacerated plantar aspect of the second and third digit. No evidence of gross sanguinous drainage at this time. No evidence of exposed bone or tendon. Musculoskeletal: Muscle strength to digits 3 and 4 are 5 out of 5 with pain. Moderate palpatory tenderness appreciated to the laceration of the plantar aspect of the second and third digit. No pain with calf pression. Const alert, oriented x3 and no apparent distress Lab / Micro Data 12/19/23 07:20 12/18/23 09:58 Labs: Laboratory Results - last 24 hr 12/18/23 09:58: WBC 14.0 H, RBC 4.57 L, Hgb 13.9, Hct 47.8, MCV 104.6 H, MCH 30.4, MCHC 29.1 L, RDW Std Deviation 47.9 H, RDW Coeff of Valerie 12.3, Plt Count 195, MPV 10.4, Immature Gran % (Auto) 0.500, Neut % (Auto) 84.7 H, Lymph % (Auto) 8.5 L, Nicholas % (Auto) 6.1, Eos % (Auto) 0.0, Baso % (Auto) 0.2, Absolute Neuts (auto) 11.9 H, Absolute Lymphs (auto) 1.19, Nucleated RBC % 0, Sodium 139, Potassium 3.8, Chloride 89 L, Carbon Dioxide > 45.0 H*, Anion Gap TNP, BUN 15, Creatinine 0.69 L, Est GFR (MDRD) Af Amer 152, Est GFR (MDRD) Non-Af 126, BUN/Creatinine Ratio 21.6 H, Glucose 152 H, Calcium 9.9 12/19/23 07:20: WBC 10.8, RBC 4.46 L, Hgb 13.8, Hct 47.4, MCV 106.3 H, MCH 30.9, MCHC 29.1 L, RDW Std Deviation 49.5 H, RDW Coeff of Valerie 12.5, Plt Count 209, MPV 10.8, Immature Gran % (Auto) 0.300, Neut % (Auto) 67.9, Lymph % (Auto) 20.8, Nicholas % (Auto) 9.8, Eos % (Auto) 0.6, Baso % (Auto) 0.6, Absolute Neuts (auto) 7.4, Absolute Lymphs (auto) 2.25, Nucleated RBC % 0, PT 12.1, INR 0.9, APTT 27.6 ABG Data ABG results: ABG 12/18/23 10:18 Specimen Type PAPITO Sample Site Not entered O2 % 3.0 VBG pH 7.33 VBG pO2 50 H VBG HCO3 57 H VBG Total CO2 > 50 H VBG O2 Sat (Calc) 78 H VBG Base Excess > 30 H POC Mix VBG pCO2 Pt Tmp 108.0 H* O2 Delivery Device Cannula Crit Call To/Read Back Yes Blood Gas Notified Whom Angela Blood Gas Notified Time 10:20:36 Imagaing Radiology Impression Chest X-Ray 12/18/23 15:20 IMPRESSION: Hyperinflation. Prominence of both pulmonary arteries suggestive of pulmonary hypertension. Electronically Signed: Arsenio Funk MD at 16:10 EST ,
[2023-12-19 09:56] LABS: Base Excess 20 mmol/L (-2 to +2); Bicarbonate 47.7 mmol/L (22-26); Blood Gas Specimen Type ART; Comment 20-10; Mode Not entered; O2 Delivery Device BiPAP; PO2 75 mmHG (75-100); RR 14; SITE L Radial; SO2 89 % (95-99); Total Carbon Dioxide > 50 mmol/L; pH 7.22 (7.35-7.45)
--- NOTE | 2023-12-19 10:26 | CON.PCM.CC_ITS ---
Assessment & Plan Assessment/Plan (1) Respiratory failure with hypoxia and hypercapnia: PLAN: Plan RECOMMENDATIONS: 1. Transition from BiPAP to AVAPS therapy as ordered. 2. Start scheduled DuoNebs. 3. Updated orders for his noninvasive ventilator have been signed and will be faxed to his DME provider, Suzy. 4. Encourage incentive spirometer use while in bed. 5. Follow-up in the pulmonary medicine clinic as scheduled on December. 6. Please call with any additional questions. IMPRESSIONS: 1. Acute on chronic combined respiratory failure/history of end-stage COPD/asthma overlap syndrome Most likely secondary to noncompliance with prescribed noninvasive ventilator on outpatient basis. In the past, BiPAP has been shown to be inadequate in controlling the patient's CO2 accumulation. Therefore, the patient was recently transition to AVAPS. He has been struggling with its use according to his outpatient compliance report. Therefore, in the 4 to 5 days leading up to his hospitalization, the patient went back to utilizing his BiPAP, which again has not been adequate in preventing his hypercapnia. At this time, I have transition the patient from BiPAP to AVAPS, which will be continued with naps and nightly. Given his complaints, I have also updated his noninvasive ventilator settings through his DME company to increase his EPAP max to 25 cm of water and his target volume to 500 mL. In addition to the aforementioned, I am going to start the patient on scheduled DuoNebs. The importance of compliance with his prescribed outpatient PAP therapy was emphasized to the patient. 2. Left foot fractures Tentative plans for surgical intervention per podiatry. 3. History of obstructive sleep apnea/morbid obesity/pulmonary hypertension/tobacco dependency/depression/anxiety Complicates care, management, recovery and prognosis. Continue supportive care as noted above. This note was generated with [employer] dictation software. It may contain incorrect words, spelling, and punctuation that were not noted in checking the note before signing. HPI Consult Data Date of Consult: 12/19/23 HPI Narrative Reason for Consultation: Acute on chronic combined respiratory failure HPI Narrative: The patient is a 53-year-old male, with a history as outlined below, who presented to the emergency department on December 18 after sustaining a fall at home. The patient has a known history of chronic hypoxemic and hypercapnic respiratory failure along with end-stage asthma/COPD overlap syndrome. He is on maximum therapy from an inhaler perspective and also receives Nucala injections. The patient was previously being maintained on BiPAP therapy, but was recently transition to a noninvasive ventilator, as his BiPAP was woefully inadequate in providing him ventilatory support. The patient was being maintained on AVAPS therapy, but stated that he did not feel that there was enough pressure being generated. Therefore, it appears that in the days leading up to his hospitalization, he transitioned himself back to BiPAP with a pressure support of 20/7 cm of water. Unfortunately, this has been shown in the past to be inadequate in controlling his CO2 accumulation. Therefore, the patient's presenting fall may have been a consequence of CO2 retention in his home environment. As part of his initial workup, the patient was noted to have an elevated white blood cell count of 14,000. VBG demonstrated a pCO2 of 108. Chemistry profile was notable for a bicarbonate of greater than 45 with normal creatinine. X-ray of the foot demonstrated nondisplaced fractures at the base of the proximal phalanges of the second and third toes with overlying soft tissue swelling. Chest x-ray demonstrated hyperinflated lung ring without any focal consolidation. The patient was admitted to the hospital and seen in consultation by podiatry, who has plans for surgical I&D/washout. The patient was initially placed on BiPAP for support while sleeping. However, blood gas this morning demonstrated a pH of 7.2 with a pCO2 of 116 and pO2 of 75. Despite this, the patient is alert and appropriately interactive. [facility] Medical History Anxiety and depression BiPAP (biphasic positive airway pressure) dependence Blood disorder Cardiology follow-up encounter Chronic hypoxemic respiratory failure Closed fracture dislocation of joint of left lower extremity Closed fracture of left tibial plateau Congestive heart failure COPD (chronic obstructive pulmonary disease) Former smoker History of echocardiogram History of edema History of pain when walking HTN (hypertension) Hypertension Incarcerated umbilical hernia Obesities, morbid Obesity hypoventilation syndrome On home oxygen therapy LAYLA (obstructive sleep apnea) Other specified injury of left quadriceps muscle, fascia and tendon, initial encounter Pulmonary embolism Seasonal allergies Severe persistent asthma Stage 4 very severe COPD by GOLD classification Tobacco dependence Uses wheelchair Home Medications spironolactone 25 mg tablet 25 mg PO BID FLUID RETENTION/BLOOD PRESSURE 12/02/15 [History Last Taken 12/17/23] bupropion HCl 150 mg 24 hr tablet, extended release (Wellbutrin XL) 150 mg PO DAILY DEPRESSION 10/11/21 [History Last Taken 12/17/23] cyanocobalamin (vitamin B-12) 500 mcg tablet 500 mcg PO DAILY SUPPLEMENT 11/08/21 [History Last Taken 01/01/23] sertraline 100 mg tablet 100 mg PO DAILY DEPRESSION 01/23/22 [History Last Taken 01/01/23] montelukast 10 mg tablet (Singulair) 10 mg PO QPM COPD #30 tabs 06/30/22 [Rx Last Taken 12/17/23] mepolizumab 100 mg/mL subcutaneous auto-injector (Nucala) 300 mg subcut Q4W asthma 11/05/22 [History Last Taken 12/10/23] losartan 25 mg tablet 25 mg PO DAILY blood pressure #30 tabs 11/08/22 [Rx Last Taken 12/17/23] torsemide 20 mg tablet 20 mg PO BID FLUID RETENTION #60 tabs 11/08/22 [Rx Last Taken 12/17/23] furosemide 40 mg tablet 40 mg PO DAILY PRN FLUID RETENTION 01/01/23 [History Last Taken 12/31/22] albuterol sulfate 2.5 mg/3 mL (0.083 %) solution for nebulization 2.5 mg (3 mL) inhalation Q4H PRN shortness of breath or wheezing #360 mL 05/23/23 [Rx Last Taken 12/18/23] albuterol sulfate 90 mcg/actuation aerosol inhaler (Ventolin HFA) 2 puff inhalation Q4H PRN shortness of breath or wheezing #18 grams 05/23/23 [Rx Last Taken 12/17/23] cetirizine 10 mg tablet 10 mg PO DAILY allergies #90 tabs 05/30/23 [Rx Last Taken 12/17/23] metoprolol tartrate 50 mg tablet 50 mg PO BID BLOOD PRESSURE 06/10/23 [History Last Taken Unknown] apixaban 5 mg tablet (Eliquis) 5 mg PO BID BLOOD THINNER #60 tabs 07/10/23 [Rx Last Taken Unknown] cholecalciferol (vitamin D3) 125 mcg (5,000 unit) disintegrating tablet 125 mcg PO QODAY SUPPLEMENT 08/05/23 [History Last Taken 12/17/23] budesonide 1 mg/2 mL suspension for nebulization 1 mg (2 mL) inhalation BID WHEEZING/SHORTNESS OF BREATH #60 mL 08/27/23 [Rx Last Taken 12/17/23] budesonide-formoterol HFA 160 mcg-4.5 mcg/actuation aerosol inhaler (Symbicort) 2 puff inhalation BID SHORTNESS OF BREATH 10/08/23 [History Last Taken 12/17/23] gabapentin 100 mg capsule 200 mg PO QHS NERVE PAIN 10/24/23 [History Last Taken 12/17/23] fluticasone propionate 50 mcg/actuation nasal spray,suspension 2 spray intranasal DAILY PRN seasonal allergies 12/18/23 [History Last Taken Unknown] prednisone 20 mg tablet 40 mg PO DAILY shortness of breath 12/18/23 [History Last Taken 12/17/23] Allergy/AdvReac Type Severity Reaction Status Date / Time clarithromycin [From Biaxin] Allergy Hives Verified 12/18/23 08:32 Penicillins Allergy Hives Verified 12/18/23 08:32 Family History Mother Diabetes Breast cancer Heart disease Hypertension COPD (chronic obstructive pulmonary disease) Asthma Father Hypertension CVA (cerebral vascular accident) Surgical History History of hernia repair (~08/2018) History of tonsillectomy History of tooth extraction Hx of cardiac cath Social History household members: spouse Smoking Status: Current some day smoker tobacco type: cigarettes how long ago did patient quit smoking: Patient admits to smoking 1 cigarette to 2 cigarettes weekly second hand exposure: Yes quit status: has quit before alcohol intake: never substance use type: does not use ROS ROS Narrative 10 systems were reviewed with pertinent positives as noted in the HPI above. Physical Exam Const alert and no apparent distress Constitutional Narrative: Son is present at the bedside. BiPAP mask in place. General Appearance: cooperative HEENT normocephalic and head/scalp atraumatic Eyes PERRL, EOMs intact bilaterally and conjunctivae normal Neck supple General: trachea midline Chest inspection of chest normal Resp normal respiratory effort Auscultation: diminished lung sounds Cardio regular rate, regular rhythm, S1 normal heart sound and S2 normal heart sound GI normal to inspection, nondistended, normoactive bowel sounds Extremity General Extremity: Negative for clubbing Skin Skin Narrative: Wrapped left lower extremity Neuro CN's II-XII intact bilaterally, moves all extremities and no focal motor deficits Psych Mood & Affect: flat affect Lab / Micro Data 12/19/23 07:20 12/18/23 09:58 Labs: Laboratory Results - last 24 hr 12/18/23 09:58: Sodium 139, Potassium 3.8, Chloride 89 L, Carbon Dioxide > 45.0 H*, Anion Gap TNP, BUN 15, Creatinine 0.69 L, Est GFR (MDRD) Af Amer 152, Est GFR (MDRD) Non-Af 126, BUN/Creatinine Ratio 21.6 H, Glucose 152 H, Calcium 9.9 12/19/23 07:20: WBC 10.8, RBC 4.46 L, Hgb 13.8, Hct 47.4, MCV 106.3 H, MCH 30.9, MCHC 29.1 L, RDW Std Deviation 49.5 H, RDW Coeff of Valerie 12.5, Plt Count 209, MPV 10.8, Immature Gran % (Auto) 0.300, Neut % (Auto) 67.9, Lymph % (Auto) 20.8, [place] % (Auto) 9.8, Eos % (Auto) 0.6, Baso % (Auto) 0.6, Absolute Neuts (auto) 7.4, Absolute Lymphs (auto) 2.25, Nucleated RBC % 0, PT 12.1, INR 0.9, APTT 27.6 ABG Data ABG results: ABG 12/18/23 12/19/23 10:18 09:51 Specimen Type ART Sample Site L Radial pH 7.22 L Bicarbonate Actual 47.7 H Total CO2 > 50 Base Excess 20 H O2 Saturation 89 L O2 % 35.0 ABG pCO2 116.0 H* ABG pO2 75 VBG Total CO2 > 50 H Respiration Rate 14 O2 Delivery Device BiPAP Vent Mode Not entered Crit Call To/Read Back Yes Blood Gas Notified Whom Blood Gas Notified Time 09:53:01 Clinical Comments 20-10 Imagaing Radiology Impression Chest X-Ray 12/18/23 15:20 IMPRESSION: Hyperinflation. Prominence of both pulmonary arteries suggestive of pulmonary hypertension. Electronically Signed: Arsenio Funk MD at 16:10 EST , Charges/Coding Visit Charges Inpatient E&M: 36659 Init Hosp L3
--- NOTE | 2023-12-19 11:40 | CASEMGMT ---
RN ZORA Face to Face with patient for initial transition planning/care coordination assessment. RN CM introduced self and role at [facility]. Patient lying in bed, alert and oriented. Patient willing to participate in assessment and is able to answer all questions appropriately. Care providers, pharmacy, and demographics verified. Patient wishes to discharge home, denies need for home health at this time. Patient states he has no further needs or concerns at this time. CM to follow for discharge planning needs that may arise. PCP: Tyler Specialists: [place], rater associate; Kennedy, health care sanitary technician Preferred Pharmacy: [facility] retail Insurance: [employer] Prescription Benefit: yes Living Will/HPOA: yes, significant other Laura SCANLON: son, SO Living Arrangements: Patient lives with SO in a mobile home with no steps to enter. Patient states he is independent at home. Transportation: self, SO DME/HHC: Patient states he has cane, walker, grab bars, bipap, nebulizer, pusle ox and home oxygen through [employer] at 4 at rest, 8 with activity, and 6 at HS. [facility] Patient has had [facility] in the past. Disposition Plan: Patient to discharge home with family support and follow-up plans in place. Will monitor progress with therapy after surgery. Ariana ZUNIGA, RN, CM
[2023-12-19 13:02] LABS: Anion Gap 1 (5-15); BUN 19 mg/dL (7-18); BUN/Creat Ratio 28.9 RATIO (10-20); Calcium,Total 9.7 mg/dL (8.5-10.1); Chloride 90 mmol/L (98-107); Creatinine, Serum 0.66 mg/dL (0.70-1.30); EST Glomerular Filtration Rate 134 mL/min (>60); Est Glom Filt Rate - Afr Amer 162 mL/min (>60); Estimated Creatinine Clearance 189.89 ml/min; Glucose 103 mg/dL (74-106); Potassium 3.8 mmol/L (3.5-5.1); Sodium Level 134 mmol/L (136-145)
--- NOTE | 2023-12-19 13:09 | CASEMGMT ---
Patient has a Healthcare Power of Engraver Block and a Healthcare Living Will on file at [facility]. Patient's significant other is patient's Healthcare Power of Engraver Block. Norah JACKSON
[2023-12-19] MEDS: Lactated Ringers 1,000 ML 15 ML IV (15:32)
[2023-12-19] MEDS: Vancomycin IV 1,000 MG/200 ML BAG 200 MG IV (15:51)
--- NOTE | 2023-12-19 17:31 | OP.PCM_ITS ---
Problems Associated Problem List Diagnoses (1) Foot laceration: (2) Open fracture of toe of left foot: Report of Operation Date of Procedure: 12/19/23 Pre-Operative Diagnosis: 1. Open fracture, second and third digit, left foot 2. Laceration, second and third digit, left foot Post-Operative Diagnosis: 1. Open fracture, second and third digit, left foot 2. Laceration, second and third digit, left foot Surgery/Procedure Performed:: 1. Incision and drainage, second and third digit, left foot 2. Delayed primary closure, second and third digit, left foot Description of Surgical Findings:: 1. Evidence of lacerated long flexors to the second and third digit. Repair of the long flexor tendons were not possible at the time of surgery since the long flexors retracted into the foot. 2. After aggressive debridement there showed evidence of healthy granular tissue. 3. After pulse lavage of 3000 mL there showed evidence of healthy granular tissue 4. Reapproximated lacerations to the second and third digit, left foot 5. The only concern after closure of the second and third digit was the possibility that the patient lacerated one of his arteries to the plantar medial aspect of the second digit that showed evidence of delayed reperfusion after closure. It was educated to the patient's that there is concern that the patient could lose either the second and/or third digit if reperfusion is unsuccessful after delayed primary closure in the post operative phase. Surgeon: Pelon Chen warehouse record clerk: None Type of Anesthesia: Local and MAC Anesthesiologist: Vladimir Suarez Special Medications: Per anesthesia Specimen's removed: 1. Prelavage culture, left foot 2. Post lavage culture, left foot Drains: None Estimated Blood Loss (mL): 20 mL Fluids Replaced: Per anesthesia Description of Procedure: Indications For Operation: Mr. Ku is a 53-year-old male who was admitted to [facility] for for open fracture laceration to the second and third digit of left foot. Patient was at home when his injury occurred. He admits to stepping over a dog gate which was made on metal, it fell to the ground and he hyperextended his second and third digit causing a laceration to the plantar proximal interphalangeal joint area to the second and third digit. Patient was ul timately seen at [facility] in the emergency department evaluated treated and admitted for medical clearance. Podiatry was consulted for concerns of an open fracture and laceration to the second and third digit. Patient was cleared by medicine team for procedure as stated above. Due to nature of the laceration to the second and third digit of left foot it had the necessary at this time to take the patient to the operating room to perform an incision and drainage with pulse lavage and delayed primary closure of the lacerations to help heal the patient's wounds to the plantar aspect of the second and third digit, left foot. The nature of the problem, anticipated procedures, postop recovery/convalences and risk/complications include but not limited to infection, wound healing complications, loss of toes, hypertrophic scarring, numbness, tingling, chronic pain, CRPS, over and under correction, recurrence of deformity, DVT and or PE and the need for further surgery have been discussed in great detail with the patient. All questions have been answered to the patient's satisfaction. There are no guarantees given as to the outcome of the procedure. Description of Procedure: Under mild sedation, the patient was brought into the operating room and placed on the operating table in supine position. Once the patient was under monitored anesthesia care anesthesia, the left lower extremity was blocked using approximately 20 cc 0.5% Marcaine plain. No tourniquet was used for this case. Next, the left lower extremity was prepped and draped in normal aseptic manner. Next, a timeout was then undertaken verifying the correct patient, extremity, visibility of preoperative markings, availability of the equipment. Procedure #1, incision and drainage, second and third digit, left foot Next, attention was directed to the plantar aspect of the second and third digit that showed evidence of full-thickness ulceration with violation of the long flexor tendons. Attempt to explore the foot showed evidence that the long flexor tendons had retracted to the plantar vault of the left foot and deemed unrepairable at this time. There is no evidence of gross abscess or contaminated tissue to the plantar aspect of the second third digit. Prelavage cultures were taken from the open laceration to the second third digit, passed the back table to be sent off for microbiology culture and sensitivity. Next, incision and drainage of the full-thickness ulceration was performed down to healthy bleeding tissue. Next, attention was directed to the plantar aspect of both lacerations to the second and third digit, using pulse lavage 3000 mL was used to mechanically debride the lacerations. After debridement there showed evidence of healthy granular tissue. Post lavage cultures were taken passed the back table to be sent off for microbiology culture and sensitivity. Procedure #2, delayed primary closure, second and third digit, left foot Next, attention was directed to the plantar aspect of the second and third digit. Using 3-0 nylon, the skin of the plantar aspect of the second and third digit were reapproximated and closed via delayed primary closure fashion with simple interrupted suture technique to the second and third digit. The only concern after closure of the second and third digit was the possibility that the patient lacerated one of his arteries to the plantar medial aspect of the second digit that showed evidence of delayed reperfusion after closure. The left foot was leg clean and patted dry. Both incisions were dressed with Betadine soaked Adaptic, second and third digit were parachuted in a plantarflexed freestyle which was held in place with half-inch Steri-Strips. The incisions were reinforced with 4 x 4's, dry sterile dressing and a single layer Peralta compression bandage was donned to the left lower extremity. The patient was placed in a cam walking boot to be partially weightbearing to heel of the left foot. The patient tolerated the procedure and anesthesia well and apparent satisfactory condition and was transported to the PACU for further monitoring prior to discharge back to the floor. Vital signs stable and vascular status intact to all digits bilateral. Post Operative Plan: Weightbearing: Partial weightbearing left heel, full weightbearing right lower extremity Antibiotics: 1 g vancomycin through the IV DVT Prophylaxis: SCDs Morrison: None Dressing: Betadine soaked Adaptic, dry sterile dressing, single layer Peralta compression bandage cam boot X-Rays: Not needed Pain Medication: Vicodin 5/325 Follow-up: Patient will follow-up with Dr. Chen in private office 1 week postop. Patient is cleared from a podiatry perspective to discharge home on oral antibiotics for 7 to 10 days, Keflex 500 mg 3 times daily. Grafts/Implants Used: None Complications 1. Was not able to repair the long flexor tendons of the second and third digit as the long flexors retracted into the plantar vault of the left foot. 2. The only concern after closure of the second and third digit was the possibility that the patient lacerated one of his arteries to the plantar medial aspect of the second digit that showed evidence of delayed reperfusion after closure. Admit VTE Documentation VTE Present on Admission: No VTE Mechan Device Prophylaxis: SCD's VTE Pharm Prophylaxis ordered?: Yes
[2023-12-19] MEDS: Bupivacaine Mpf 0.5% 30 ML VIAL (18:20)
[2023-12-19] MEDS: Ipratropium/Albuterol Sulfate 3 ML AMPUL.NEB INHALATION (20:19)
--- NOTE | 2023-12-19 22:35 | CPS ---
Pt refused BIPAP for tonight.
[2023-12-20] VITALS (14 sets, daily range): BP systolic 140–181; BP diastolic 70–152; PULSE 79–107; RESP 18–26; TEMP 36.1–36.6; O2SAT 90–97
--- NOTE | 2023-12-20 00:26 | PCM.HOSP.N ---
Hospitalist Note Staff concerned about patient confusion, ABG from earlier in the day with notable elevation CO2. Patient also per discussion with nursing had surgery today thus could be multifactorial. Will obtain ABG to be cautious, continue q HS BIPAP.
[2023-12-20 00:57] LABS: Allen Test Positive; Base Excess 26 mmol/L (-2 to +2); Bicarbonate 53.2 mmol/L (22-26); Blood Gas Specimen Type ART; Comment AVAPS; Mode Not entered; O2 Delivery Device BiPAP; PEEP 14; PO2 62 mmHG (75-100); RR 16; SITE L Radial; SO2 83 % (95-99); Total Carbon Dioxide > 50 mmol/L; pCO2 125.8 mmHg (35-45); pH 7.24 (7.35-7.45)
[2023-12-20] MEDS: Ipratropium/Albuterol Sulfate 3 ML AMPUL.NEB INHALATION ×5 (01:48→19:21)
[2023-12-20 01:52] LABS: Absolute Lymphocyte Count 1.74 X10^3/uL (0.83-4.51); Absolute Neutrophil Count 8.9 X10^3/uL (2.0-7.7); Basophil# 0.06 X10^3/uL; Basophil% 0.5 % (0-1); Eosinophil# 0.02 X10^3/uL; Eosinophils% 0.2 % (0-5); Hemoglobin 13.2 g/dL (13.0-16.5); Lymphocyte # 1.74 X10^3/ul (0.83-4.51); Lymphocyte % 14.7 % (19-41); Mean Corp Hgb Conc 28.7 g/dL (32-36); Mean Corpuscular Hgb 31.1 pg (27.0-32.0); Mean Corpuscular Volume 108.2 fL (80-94); Mean Platelet Vol. 10.3 fl (6.2-12.0); Monocyte# 1.09 X10^3/uL; Monocyte% 9.2 % (0-10); NRBC Flagged by Analyzer 0 % (0-5); Platelet Count 167 K/mm3 (150-450); RBC Distribution Width CV 12.6 % (11.6-14.6); Red Blood Count 4.25 M/mm3 (4.6-6.2); White Blood Count 11.9 K/mm3 (4.4-11.0)
[2023-12-20 02:32] LABS: BUN 17 mg/dL (7-18); BUN/Creat Ratio 33.5 RATIO (10-20); Calcium,Total 9.3 mg/dL (8.5-10.1); Carbon Dioxide > 45.0 mmol/L (21.0-32.0); Chloride 90 mmol/L (98-107); Creatinine, Serum 0.51 mg/dL (0.70-1.30); EST Glomerular Filtration Rate 181 mL/min (>60); Est Glom Filt Rate - Afr Amer 218 mL/min (>60); Estimated Creatinine Clearance 245.74 ml/min; Glucose 121 mg/dL (74-106); Potassium 4.7 mmol/L (3.5-5.1); Sodium Level 135 mmol/L (136-145)
[2023-12-20 03:13] LABS: Allen Test Positive; Base Excess 25 mmol/L (-2 to +2); Bicarbonate 51.9 mmol/L (22-26); Blood Gas Specimen Type ART; Comment AVAPS; Mode Not entered; O2 Delivery Device BiPAP; PEEP 14; PO2 60 mmHG (75-100); RR 18; SITE R Radial; SO2 83 % (95-99); Total Carbon Dioxide > 50 mmol/L; pCO2 114.8 mmHg (35-45); pH 7.26 (7.35-7.45)
--- NOTE | 2023-12-20 03:15 | PCM.HOSP.N ---
Hospitalist Note Ammonia mildly elevated, will dose x 1 with lactulose. ABG mildly improved thus per discussion with respiratory will continue the most recent changes. Patient awakes and discussing present with RT at this time.
[2023-12-20] MEDS: Lactulose 20 GM/30 ML UDC PO (04:51)
--- NOTE | 2023-12-20 06:31 | NURSING ---
Pt sitting up in bed, requesting that his bipap settings be changed because they're making my CO2 worse. This RN educated pt on bipap therapy and discussed pt's ABG results throughout the night. Pt refusing to wear bipap at this time. This RN placed pt on 6L NC, spO2 92%, respirations even and nonlabored. Pt is on continuous pulse ox. Pt's mental status has improved and pt is now A&Ox4. Notified respiratory therapy of situation. Plan of care continues.
--- NOTE | 2023-12-20 07:47 | PN.HOSP_ITS ---
Reason for Visit Reason for Visit: Diagnoses Chronic respiratory failure with hypoxia (12/18/23) Chronic respiratory failure with hypercapnia (12/18/23) Respiratory failure, unspecified with hypoxia (12/18/23) Respiratory failure, unspecified with hypercapnia (12/18/23) Laceration without foreign body, left foot, initial encounter (12/18/23) Laceration without foreign body, unspecified foot, initial encounter (12/18/23) Nondisplaced fracture of proximal phalanx of left lesser toe(s), initial encounter for open fracture (12/18/23) Subjective Subjective Patient underwent incision and drainage with delayed primary closure to open lacerations to digits 2 and 3 of the left foot on 12/19/2023; boot subsequently applied by podiatry. Patient CO2 remains markedly elevated and has myoclonic changes Objective Data Objective Data Vital Signs: Vital Signs Temp Pulse Resp BP Pulse Ox O2 Del Method O2 Flow Rate 96.9 F L 86 19 H 140/81 H 94 Bi-pap 4 12/20/23 03:10 12/20/23 04:05 12/20/23 04:05 12/20/23 03:10 12/20/23 04:05 12/20/23 03:10 12/19/23 14:00 FiO2 40 12/20/23 04:05 Oxygen Flow Rate (L/min) 4 Oxygen Delivery Method Bi-pap Weight: 149 kg Body Mass Index (BMI) 44.5 Intake & Output: Intake and Output for Last 24 Hours 12/18/23 12/19/23 12/20/23 23:59 23:59 23:59 Intake Total 720 / 720 200 / 200 Output Total 350 / 350 Balance 720 / 720 200 / 200 -350 / -350 Lab / Micro Data 12/20/23 01:44 12/20/23 01:44 Labs: Laboratory Results - last 24 hr 12/19/23 07:20: WBC 10.8, RBC 4.46 L, Hgb 13.8, Hct 47.4, MCV 106.3 H, MCH 30.9, MCHC 29.1 L, RDW Std Deviation 49.5 H, RDW Coeff of Valerie 12.5, Plt Count 209, MPV 10.8, Immature Gran % (Auto) 0.300, Neut % (Auto) 67.9, Lymph % (Auto) 20.8, Tate % (Auto) 9.8, Eos % (Auto) 0.6, Baso % (Auto) 0.6, Absolute Neuts (auto) 7.4, Absolute Lymphs (auto) 2.25, Nucleated RBC % 0, PT 12.1, INR 0.9, APTT 27.6, Sodium 134 L, Potassium 3.8, Chloride 90 L, Carbon Dioxide 43.0 H, Anion Gap 1 L, BUN 19 H, Creatinine 0.66 L, Estim Creat Clear Calc 189.89, Est GFR (MDRD) Af Amer 162, Est GFR (MDRD) Non-Af 134, BUN/Creatinine Ratio 28.9 H, Glucose 103, Calcium 9.7 12/20/23 01:44: WBC 11.9 H, RBC 4.25 L, Hgb 13.2, Hct 46.0, MCV 108.2 H, MCH 31.1, MCHC 28.7 L, RDW Std Deviation 51.0 H, RDW Coeff of Valerie 12.6, Plt Count 167, MPV 10.3, Immature Gran % (Auto) 0.400, Neut % (Auto) 75.0 H, Lymph % (Auto) 14.7 L, Tate % (Auto) 9.2, Eos % (Auto) 0.2, Baso % (Auto) 0.5, Absolute Neuts (auto) 8.9 H, Absolute Lymphs (auto) 1.74, Nucleated RBC % 0, Sodium 135 L , Potassium 4.7, Chloride 90 L, Carbon Dioxide > 45.0 H*, Anion Gap TNP, BUN 17, Creatinine 0.51 L, Estim Creat Clear Calc 245.74, Est GFR (MDRD) Af Amer 218, E st GFR (MDRD) Non-Af 181, BUN/Creatinine Ratio 33.5 H, Glucose 121 H, Calcium 9.3, Ammonia 40.0 H Micro: Microbiology 12/18/23 20:09 Sputum, Expectorated/Coughed Gram Stain - Final ABG Data ABG results: ABG 12/19/23 12/20/23 12/20/23 09:51 00:52 03:09 Specimen Type ART ART ART Sample Site L Radial L Radial R Radial pH 7.22 L 7.24 L 7.26 L Bicarbonate Actual 47.7 H 53.2 H 51.9 H Total CO2 > 50 > 50 > 50 Base Excess 20 H 26 H 25 H O2 Saturation 89 L 83 L 83 L O2 % 35.0 35.0 40.0 ABG pCO2 116.0 H* 125.8 H* 114.8 H* ABG pO2 75 62 L 60 L Tal Test Positive Positive Respiration Rate 14 16 18 O2 Delivery Device BiPAP BiPAP BiPAP Vent Mode Not entered Not entered Not entered Tidal Volume 430.0 500.0 POC PEEP 14 14 Crit Call To/Read Back Yes Yes Yes Blood Gas Notified Whom DR.Kittoe Shawn Escobar Blood Gas Notified Time 09:53:01 00:53:54 03:10:55 Clinical Comments 20-10 AVAPS AVAPS Physical Exam Narrative GENERAL: cooperative HEENT: Atraumatic; normocephalic EYES; Anicteric, Normal Conjunctiva NECK; supple, normal thyroid, RESPIRATORY: Diminished to auscultation CARDIOVASCULAR: Regular S1 S2, GI: soft, normoactive bowel sounds, : No Renal angle tenderness; EXTREMITIES: Left foot in a boot MUSCULOSKELETAL: no muscle wasting NEURO: Awake; no lateralizing signs. SKIN: No Rash PSYCH; Flat affect Assessment & Plan Assessment/Plan (1) Foot laceration: QUALIFIERS: Encounter type: initial encounter Laterality: left Qualified Code(s): S91.312A - Laceration without foreign body, left foot, initial encounter (2) Chronic respiratory failure with hypoxia and hypercapnia: (3) Respiratory failure with hypoxia and hypercapnia: PLAN: Plan HARJIT ALBERTS, is a 53 M who presents with left foot pain. Patient states he tripped while trying to prevent a fall. He apparently hit his left leg against a dog gate and did notice some blood subsequently. Presented to the emergency department imaging studies involving the left foot did not demonstrate Nondisplaced fractures at the base of the proximal phalanges of the second and third toes with overlying soft tissue swelling. 1. Fall with nondisplaced fractures involving the base of the proximal phalanges of the second and third toe of the left foot ? Patient admitted to a monitored bed, managed with immobilization pain management with consultation placed to orthopedic surgery. Plan is for patient to undergo surgical intervention ? 12/19/2023; Dr. Chen with podiatry was consulted from the ED on 12/18/2023, awaiting for his evaluation and intervention ? 12/20/2023;Patient underwent incision and drainage with delayed primary closure to open lacerations to digits 2 and 3 of the left foot on 12/19/2023; boot subsequently applied by podiatry. 2. Acute metabolic encephalopathy ? Secondary to acute hypoxic and hypercapnic respiratory failure with significant hypercarbia. Plan is for patient to be placed on NIV prior to any surgical intervention ? 12/19/2023 patient back to baseline. Repeated ABGs -12/20/2023;Patient CO2 remains markedly elevated and has myoclonic changes 3. COPD with acute exacerbation ? Admitted to the intensive care unit patient managed with systemic steroids, antibiotics, aerosol treatment as well as BiPAP therapy and oxygen which has been titrated to keep saturation greater than 90. Patient is followed by pulmonary medicine as outpatient 4. Chronic hypoxic respiratory failure ? Patient is on 2 to 4 L of oxygen at baseline. Repeated ABGs 5. History of pulmonary embolism ? Diagnosed in October 2022 patient was previously treated with systemic a nticoagulation with apixaban he came off it due to cost 6. Hypertension - Blood pressure controlled, home medications continued with dose adjustment as needed 7. Obstructive sleep apnea ? Patient is on BiPAP at night 8. Chronic congestive heart failure with preserved ejection fraction ?-Echocardiogram 04/13/2021 shows an EF of 65% with stage II diastolic dysfunction, structurally normal valves and a pulmonary artery systolic pressure of 60 mmHg. Patient is on diuretics did continue 9. Tobacco dependence - Counseled on cessation, offered nicotine patch for tobacco cravings 10. Seasonal allergies -Continue home Singulair 11. Depression/anxiety -Patient is on Wellbutrin as well as Zoloft continued 10. DVT prophylaxis ?Plan is to initiate systemic anticoagulation following surgical intervention Time spent in the patient's overall evaluation,decision-making process, review of diagnostic data, adjustment of management, discussion with other providers, nursing nursing and ancillary staff involved in patient's care documentation, 50 Minutes Charges/Coding Visit Charges Inpatient E&M: 30437 [facility] L3
--- NOTE | 2023-12-20 07:56 | PN.SURG_ITS ---
Subjective Subjective Mr. Ku is a 53-year-old male seen at bedside today status post surgical drainage with delayed primary closure laceration to the second and third digit of the left foot. Patient is postoperative day #1. DOS: 12/15/2023. Patient denies any pain to the left foot. He has kept his postop dressing clean dry and intact. Cam boot donned. Patient admits to minimal to no weightbearing to left lower extremity. He continues to wear his CPAP device when sleeping. He denies constitutional symptoms. No acute complaints at this time. Objective Data Objective Data Vital Signs: Vital Signs Temp Pulse Resp BP Pulse Ox O2 Del Method O2 Flow Rate 96.9 F L 85 22 H 140/81 H 94 Bi-pap 4 12/20/23 03:10 12/20/23 07:26 12/20/23 07:26 12/20/23 03:10 12/20/23 04:05 12/20/23 03:10 12/19/23 14:00 FiO2 40 12/20/23 04:05 Oxygen Flow Rate (L/min) 4 Oxygen Delivery Method Bi-pap Weight: 149 kg Body Mass Index (BMI) 44.5 Intake & Output: Intake and Output for Last 24 Hours 12/18/23 12/19/23 12/20/23 23:59 23:59 23:59 Intake Total 720 / 720 200 / 200 Output Total 350 / 350 Balance 720 / 720 200 / 200 -350 / -350 Lab / Micro Data 12/20/23 01:44 12/20/23 01:44 Labs: Laboratory Results - last 24 hr 12/19/23 07:20: PT 12.1, INR 0.9, APTT 27.6, Sodium 134 L, Potassium 3.8, Chloride 90 L, Carbon Dioxide 43.0 H, Anion Gap 1 L, BUN 19 H, Creatinine 0.66 L , Estim Creat Clear Calc 189.89, Est GFR (MDRD) Af Amer 162, Est GFR (MDRD) Non- Af 134, BUN/Creatinine Ratio 28.9 H, Glucose 103, Calcium 9.7 12/20/23 01:44: WBC 11.9 H, RBC 4.25 L, Hgb 13.2, Hct 46.0, MCV 108.2 H, MCH 31.1, MCHC 28.7 L, RDW Std Deviation 51.0 H, RDW Coeff of Valerie 12.6, Plt Count 167, MPV 10.3, Immature Gran % (Auto) 0.400, Neut % (Auto) 75.0 H, Lymph % (Auto) 14.7 L, [place] % (Auto) 9.2, Eos % (Auto) 0.2, Baso % (Auto) 0.5, Absolute Neuts (auto) 8.9 H, Absolute Lymphs (auto) 1.74, Nucleated RBC % 0, Sodium 135 L , Potassium 4.7, Chloride 90 L, Carbon Dioxide > 45.0 H*, Anion Gap TNP, BUN 17, Creatinine 0.51 L, Estim Creat Clear Calc 245.74, Est GFR (MDRD) Af Amer 218, Est GFR (MDRD) Non-Af 181, BUN/Creatinine Ratio 33.5 H, Glucose 121 H, Calcium 9.3, Ammonia 40.0 H Micro: Microbiology 12/18/23 20:09 Sputum, Expectorated/Coughed Gram Stain - Final ABG Data ABG results: ABG 12/19/23 12/20/23 12/20/23 09:51 00:52 03:09 Specimen Type ART ART ART Sample Site L Radial L Radial R Radial pH 7.22 L 7.24 L 7.26 L Bicarbonate Actual 47.7 H 53.2 H 51.9 H Total CO2 > 50 > 50 > 50 Base Excess 20 H 26 H 25 H O2 Saturation 89 L 83 L 83 L O2 % 35.0 35.0 40.0 ABG pCO2 116.0 H* 125.8 H* 114.8 H* ABG pO2 75 62 L 60 L Tal Test Positive Positive Respiration Rate 14 16 18 O2 Delivery Device BiPAP BiPAP BiPAP Vent Mode Not entered Not entered Not entered Tidal Volume 430.0 500.0 POC PEEP 14 14 Crit Call To/Read Back Yes Yes Yes Blood Gas Notified Whom DR.Kittoe Shawn Escobar Blood Gas Notified Time 09:53:01 00:53:54 03:10:55 Clinical Comments 20-10 AVAPS AVAPS Physical Exam Narrative Neurovascular status is unchanged. Capillary refill time is brisk to all digits to left extremity. Nonpitting edema appreciated to the distal and proximal aspect of the postoperative dressing. Active and passive range of motion to the digits elicits some pain secondary to postoperative recovery. No evidence of duskiness or cyanosis appreciated to the second and third digit of the left foot. There was evidence of dried sanguinous drainage appreciated to the interdigital space 2 and 3. No pain with calf compression. Const oriented x3 and no apparent distress Assessment & Plan Assessment/Plan (1) Open fracture of toe of left foot: QUALIFIERS: Encounter type: initial encounter Toe: lesser toe Phalanx: proximal Fracture alignment: nondisplaced Qualified Code(s): S92.515B - Nondisplaced fracture of proximal phalanx of left lesser toe(s), initial encounter for open fracture PLAN: Patient was examined evaluated. All findings were discussed with the patient. All questions were answered to the patient satisfaction. Patient is status post incision and drainage with delayed primary closure to open lacerations to digits 2 and 3 of the left foot. DOS: 12/15/2023. Patient is recovering well. Betadine paint was applied in between of the lesser digits with gauze placed between the digits to decrease possibility of maceration secondary to postoperative drainage. Overall the toes show excellent capillary refill time with no concern of compromised blood supply at this time. It was still educated to the patient that there is concern that he lacerated one of the small arteries in the second and third digit and is at risk for possible amputation if reperfusion is not established to the toes. Patient was understanding of this. Medicine: On board, medical management Patient is cleared from a podiatry perspective to discharge home. Patient will follow-up with Dr. Chen 1 week postop in private office. Recommend discharge on doxycycline 100 mg, twice daily for 10 days. Podiatry will continue to follow and change the patient's dressing if he is still present in hospital on 12/21/2023. Thank you for letting me be involved in the patient care! (2) Foot laceration: QUALIFIERS: Encounter type: initial encounter Laterality: left Qualified Code(s): S91.312A - Laceration without foreign body, left foot, initial encounter (3) Tinea pedis:
[2023-12-20] MEDS: guaiFENesin 1,200 MG Tablet 1200 MG PO ×2 (08:15→20:40)
[2023-12-20] MEDS: Metoprolol Tartrate 50 MG Tablet PO ×2 (08:16→20:38)
[2023-12-20] MEDS: Loratadine 10 MG Tablet PO (08:16)
[2023-12-20] MEDS: Spironolactone 25 MG Tablet PO ×2 (08:17→20:38)
[2023-12-20] MEDS: Sertraline 100 MG Tablet PO (08:17)
[2023-12-20] MEDS: predniSONE 20 MG Tablet 40 MG PO (08:17)
[2023-12-20] MEDS: Losartan Potassium 25 MG Tablet PO (08:18)
[2023-12-20] MEDS: buPROPion (XL) 150 MG TABLET.XL PO (08:18)
--- NOTE | 2023-12-20 10:13 | PCM.PN.INT ---
Assessment & Plan Assessment/Plan (1) Respiratory failure with hypoxia and hypercapnia: PLAN: Plan RECOMMENDATIONS: 1. Continue AVAPS therapy with naps and nightly. 2. Continue scheduled DuoNebs. 3. Updated orders for his noninvasive ventilator have been signed and faxed to his DME provider, Suzy. 4. Encourage incentive spirometer use while in bed. 5. Follow-up in the pulmonary medicine clinic as scheduled on December. 6. Please call with any additional questions. IMPRESSIONS: 1. Acute on chronic combined respiratory failure/history of end-stage COPD/asthma overlap syndrome Most likely secondary to noncompliance with prescribed noninvasive ventilator on outpatient basis. In the past, BiPAP has been shown to be inadequate in controlling the patient's CO2 accumulation. Therefore, the patient was recently transitioned to AVAPS. He has been struggling with its use according to his outpatient compliance report. Therefore, in the 4 to 5 days leading up to his hospitalization, the patient went back to utilizing his BiPAP, which again has not been adequate in preventing his hypercapnia. At this time, the patient is tolerating AVAPS therapy. He is alert and appropriately interactive. Given his complaints, I have also updated his noninvasive ventilator settings through his DME company to increase his EPAP max to 25 cm of water and his target volume to 500 mL. The patient will be continued on scheduled DuoNebs while admitted to the hospital. The importance of compliance with his prescribed outpatient PAP therapy was emphasized to the patient. 2. Left foot fractures The patient is status post surgical intervention by podiatry. 3. History of obstructive sleep apnea/morbid obesity/pulmonary hypertension/tobacco dependency/depression/anxiety Complicates care, management, recovery and prognosis. Continue supportive care as noted above. This note was generated with [employer] dictation software. It may contain incorrect words, spelling, and punctuation that were not noted in checking the note before signing. Subjective Subjective The patient was seen and examined at the bedside this morning. Events from the last 24 hours have been reviewed. The patient is currently afebrile, hemodynamically stable and maintaining appropriate oxygen saturations on AVAPS. ABG this morning demonstrated a pH of 7.26 with a pCO2 of 115 and pO2 of 60. Nevertheless, the patient is completely alert and appropriately interactive. I spoke to respiratory therapy this morning, who indicated that the patient had attempted to make changes on his own to his AVAPS settings. The patient continues to generate good tidal volumes on his current settings. Objective Data Objective Data The patient's most recent lab work, culture data and imaging studies have all been personally reviewed. Vital Signs: Vital Signs Temp Pulse Resp BP Pulse Ox O2 Del Method O2 Flow Rate 97.9 F 107 H 18 181/152 H 95 Bi-pap 4 12/20/23 08:09 12/20/23 08:16 12/20/23 08:09 12/20/23 08:09 12/20/23 08:09 12/20/23 08:09 12/19/23 14:00 FiO2 40 12/20/23 08:09 Oxygen Flow Rate (L/min) 4 Oxygen Delivery Method Bi-pap Weight: 328 lb 7.82 oz Body Mass Index (BMI) 44.5 Intake & Output: Intake and Output for Last 24 Hours 12/18/23 12/19/23 12/20/23 23:59 23:59 23:59 Intake Total 720 / 720 200 / 200 Output Total 350 / 350 Balance 720 / 720 200 / 200 -350 / -350 Lab / Micro Data Attestation: I reviewed the patient's lab results. 12/20/23 01:44 12/20/23 01:44 Labs: Laboratory Results - last 24 hr 12/19/23 07:20: Sodium 134 L, Potassium 3.8, Chloride 90 L, Carbon Dioxide 43.0 H, Anion Gap 1 L, BUN 19 H, Creatinine 0.66 L, Estim Creat Clear Calc 189.89, Est GFR (MDRD) Af Amer 162, Est GFR (MDRD) Non-Af 134, BUN/Creatinine Ratio 28.9 H, Glucose 103, Calcium 9.7 12/20/23 01:44: WBC 11.9 H, RBC 4.25 L, Hgb 13.2, Hct 46.0, MCV 108.2 H, MCH 31.1, MCHC 28.7 L, RDW Std Deviation 51.0 H, RDW Coeff of Valerie 12.6, Plt Count 167, MPV 10.3, Immature Gran % (Auto) 0.400, Neut % (Auto) 75.0 H, Lymph % (Auto) 14.7 L, [place] % (Auto) 9.2, Eos % (Auto) 0.2, Baso % (Auto) 0.5, Absolute Neuts (auto) 8.9 H, Absolute Lymphs (auto) 1.74, Nucleated RBC % 0, Sodium 135 L, Potassium 4.7, Chloride 90 L, Carbon Dioxide > 45.0 H*, Anion Gap TNP, BUN 17, Creatinine 0.51 L, Estim Creat Clear Calc 245.74, Est GFR (MDRD) Af Amer 218, Est GFR (MDRD) Non-Af 181, BUN/Creatinine Ratio 33.5 H, Glucose 121 H, Calcium 9.3, Ammonia 40.0 H Micro: Microbiology 12/18/23 20:09 Sputum, Expectorated/Coughed Gram Stain - Final 12/18/23 20:09 Sputum, Expectorated/Coughed Respiratory Culture - Final Mixed normal respiratory seng. No Streptococcus pneumoniae, beta-hemolytic Streptococcus or Staphylococcus aureus isolated. ABG Data ABG results: ABG 12/20/23 12/20/23 00:52 03:09 Specimen Type ART ART Sample Site L Radial R Radial pH 7.24 L 7.26 L Bicarbonate Actual 53.2 H 51.9 H Total CO2 > 50 > 50 Base Excess 26 H 25 H O2 Saturation 83 L 83 L O2 % 35.0 40.0 ABG pCO2 125.8 H* 114.8 H* ABG pO2 62 L 60 L Tal Test Positive Positive Respiration Rate 16 18 O2 Delivery Device BiPAP BiPAP Vent Mode Not entered Not entered Tidal Volume 430.0 500.0 POC PEEP 14 14 Crit Call To/Read Back Yes Yes Blood Gas Notified Whom Shawn Escobra Blood Gas Notified Time 00:53:54 03:10:55 Clinical Comments AVAPS AVAPS Physical Exam Const alert and no apparent distress Constitutional Narrative: Son is present at the bedside. BiPAP mask in place. General Appearance: cooperative HEENT normocephalic and head/scalp atraumatic Eyes PERRL, EOMs intact bilaterally and conjunctivae normal Neck supple General: trachea midline Chest inspection of chest normal Resp normal respiratory effort Auscultation: diminished lung sounds Cardio regular rate, regular rhythm, S1 normal heart sound and S2 normal heart sound GI normal to inspection, nondistended, normoactive bowel sounds Extremity General Extremity: Negative for clubbing Skin Skin Narrative: Wrapped left lower extremity Neuro CN's II-XII intact bilaterally, moves all extremities and no focal motor deficits Psych cooperative and affect normal Charges/Coding Visit Charges Inpatient E&M: 36349 Subs Hosp L2
[2023-12-20] MEDS: Acetaminophen 500 MG Tablet 1000 MG PO ×2 (14:24→20:37)
[2023-12-20] MEDS: Clotrimazole 1 APPLIC Tube TOPICAL ×2 (14:25→20:39)
[2023-12-20] MEDS: Gabapentin 100 MG Capsule 200 MG PO (20:37)
[2023-12-20] MEDS: Montelukast 10 MG Tablet PO (20:37)
[2023-12-21] VITALS (10 sets, daily range): BP systolic 112–139; BP diastolic 55–89; PULSE 66–98; RESP 18–24; TEMP 36.7–36.8; O2SAT 89–97
[2023-12-21 05:07] LABS: Allen Test Positive; Base Excess 23 mmol/L (-2 to +2); Bicarbonate 47.7 mmol/L (22-26); Blood Gas Specimen Type ART; Comment avaps; Mode Not entered; O2 Delivery Device BiPAP; PEEP 14; PO2 81 mmHG (75-100); RR 18; SITE L Radial; SO2 95 % (95-99); Total Carbon Dioxide > 50 mmol/L; pCO2 79.3 mmHg (35-45); pH 7.39 (7.35-7.45)
[2023-12-21] MEDS: Acetaminophen 500 MG Tablet 1000 MG PO ×2 (06:10→14:53)
[2023-12-21 06:28] LABS: Absolute Lymphocyte Count 2.39 X10^3/uL (0.83-4.51); Absolute Neutrophil Count 6.4 X10^3/uL (2.0-7.7); Basophil# 0.05 X10^3/uL; Basophil% 0.5 % (0-1); Eosinophil# 0.03 X10^3/uL; Eosinophils% 0.3 % (0-5); Hematocrit 38.4 % (40-54); Hemoglobin 11.3 g/dL (13.0-16.5); Lymphocyte # 2.39 X10^3/ul (0.83-4.51); Lymphocyte % 24.2 % (19-41); Mean Corp Hgb Conc 29.4 g/dL (32-36); Mean Corpuscular Hgb 30.5 pg (27.0-32.0); Mean Corpuscular Volume 103.5 fL (80-94); Mean Platelet Vol. 10.9 fl (6.2-12.0); Monocyte# 1.02 X10^3/uL; Monocyte% 10.3 % (0-10); NRBC Flagged by Analyzer 0 % (0-5); Neutrophil # 6.35 X10^3/uL (2.7-7.7); Neutrophil % 64.3 % (47-70); Platelet Count 151 K/mm3 (150-450); RBC Distribution Width CV 12.2 % (11.6-14.6); RBC Distribution Width SD 46.7 fl (35.1-43.9); Red Blood Count 3.71 M/mm3 (4.6-6.2); White Blood Count 9.9 K/mm3 (4.4-11.0)
[2023-12-21] MEDS: Ipratropium/Albuterol Sulfate 3 ML AMPUL.NEB INHALATION ×3 (06:55→15:02)
[2023-12-21 07:04] LABS: BUN 16 mg/dL (7-18); BUN/Creat Ratio 31.9 RATIO (10-20); Calcium,Total 8.9 mg/dL (8.5-10.1); Chloride 92 mmol/L (98-107); EST Glomerular Filtration Rate 183 mL/min (>60); Est Glom Filt Rate - Afr Amer 222 mL/min (>60); Estimated Creatinine Clearance 250.66 ml/min; Glucose 105 mg/dL (74-106); Potassium 3.5 mmol/L (3.5-5.1); Sodium Level 138 mmol/L (136-145)
[2023-12-21] MEDS: predniSONE 20 MG Tablet 40 MG PO (09:09)
[2023-12-21] MEDS: guaiFENesin 1,200 MG Tablet 1200 MG PO (09:09)
[2023-12-21] MEDS: Loratadine 10 MG Tablet PO (09:09)
[2023-12-21] MEDS: Cholecalciferol (Vit D3) 125 MCG CAPSULE (5,000 UNITS) PO (09:09)
[2023-12-21] MEDS: Spironolactone 25 MG Tablet PO (09:09)
[2023-12-21] MEDS: Metoprolol Tartrate 50 MG Tablet PO (09:09)
[2023-12-21] MEDS: Losartan Potassium 25 MG Tablet PO (09:09)
[2023-12-21] MEDS: Sertraline 100 MG Tablet PO (09:09)
[2023-12-21] MEDS: buPROPion (XL) 150 MG TABLET.XL PO (09:10)
[2023-12-21] MEDS: Clotrimazole 1 APPLIC Tube TOPICAL (09:16)
--- NOTE | 2023-12-21 09:19 | PCM.PN.HOSP ---
Reason for Visit Reason for Visit: Diagnoses Tinea pedis (12/18/23) Chronic respiratory failure with hypoxia (12/18/23) Chronic respiratory failure with hypercapnia (12/18/23) Respiratory failure, unspecified with hypoxia (12/18/23) Respiratory failure, unspecified with hypercapnia (12/18/23) Laceration without foreign body, left foot, initial encounter (12/18/23) Laceration without foreign body, unspecified foot, initial encounter (12/18/23) Nondisplaced fracture of proximal phalanx of left lesser toe(s), initial encounter for open fracture (12/18/23) Subjective Subjective Patient seen clinical condition significantly improved. pCO2 down to 79. Patient to be assessed for possible discharge Objective Data Objective Data Vital Signs: Vital Signs Temp Pulse Resp BP Pulse Ox O2 Del Method O2 Flow Rate 98.3 F 82 18 112/79 95 Nasal Cannula 5 12/21/23 09:06 12/21/23 09:06 12/21/23 09:06 12/21/23 09:06 12/21/23 09:06 12/21/23 09:06 12/21/23 09:06 FiO2 35 12/21/23 03:40 Oxygen Flow Rate (L/min) 5 Oxygen Delivery Method Nasal Cannula Weight: 149 kg Body Mass Index (BMI) 44.5 Intake & Output: Intake and Output for Last 24 Hours 12/19/23 12/20/23 12/21/23 23:59 23:59 23:59 Intake Total 200 / 200 760 / 760 220 / 220 Output Total 700 / 700 100 / 100 Balance 200 / 200 60 / 60 120 / 120 Lab / Micro Data 12/21/23 05:55 12/21/23 05:55 Labs: Laboratory Results - last 24 hr 12/21/23 05:55: WBC 9.9, RBC 3.71 L, Hgb 11.3 L, Hct 38.4 L, MCV 103.5 H, MCH 30.5, MCHC 29.4 L, RDW Std Deviation 46.7 H, RDW Coeff of Valerie 12.2, Plt Count 151, MPV 10.9, Immature Gran % (Auto) 0.400, Neut % (Auto) 64.3, Lymph % (Auto) 24.2, [place] % (Auto) 10.3 H, Eos % (Auto) 0.3, Baso % (Auto) 0.5, Absolute Neuts (auto) 6.4, Absolute Lymphs (auto) 2.39, Nucleated RBC % 0, Sodium 138, Potassium 3.5, Chloride 92 L, BUN 16, Creatinine 0.50 L, Estim Creat Clear Calc 250.66, Est GFR (MDRD) Af Amer 222, Est GFR (MDRD) Non-Af 183, BUN/Creatinine Ratio 31.9 H, Glucose 105, Calcium 8.9 Micro: Microbiology 12/19/23 18:44 Wound - Left Foot Gram Stain - Final 12/19/23 18:44 Wound - Left Foot Wound Culture - Preliminary Gram positive organism 12/19/23 18:44 Wound - Left Foot Gram Stain - Final 12/18/23 20:09 Sputum, Expectorated/Coughed Gram Stain - Final 12/18/23 20:09 Sputum, Expectorated/Coughed Respiratory Culture - Final Mixed normal respiratory seng. No Streptococcus pneumoniae, beta-hemolytic Streptococcus or Staphylococcus aureus isolated. ABG Data ABG results: ABG 12/21/23 05:01 Specimen Type ART Sample Site L Radial pH 7.39 Bicarbonate Actual 47.7 H Total CO2 > 50 Base Excess 23 H O2 Saturation 95 O2 % 40.0 ABG pCO2 79.3 H* ABG pO2 81 Tal Test Positive Respiration Rate 18 O2 Delivery Device BiPAP Vent Mode Not entered Tidal Volume 500.0 POC PEEP 14 Crit Call To/Read Back Yes Blood Gas Notified Whom Dr. meade Blood Gas Notified Time 05:04:34 Clinical Comments avaps Physical Exam Narrative GENERAL: cooperative HEENT: Atraumatic; normocephalic EYES; Anicteric, Normal Conjunctiva NECK; supple, normal thyroid, RESPIRATORY: Diminished to auscultation CARDIOVASCULAR: Regular S1 S2, GI: soft, normoactive bowel sounds, : No Renal angle tenderness; EXTREMITIES: Left foot in a boot MUSCULOSKELETAL: no muscle wasting NEURO: Awake; no lateralizing signs. SKIN: No Rash PSYCH; Flat affect Assessment & Plan Assessment/Plan (1) Foot laceration: QUALIFIERS: Encounter type: initial encounter Laterality: left Qualified Code(s): S91.312A - Laceration without foreign body, left foot, initial encounter (2) Chronic respiratory failure with hypoxia and hypercapnia: (3) Respiratory failure with hypoxia and hypercapnia: PLAN: Plan HARJIT ALBERTS, is a 53 M who presents with left foot pain. Patient states he tripped while trying to prevent a fall. He apparently hit his left leg against a dog gate and did notice some blood subsequently. Presented to the emergency department imaging studies involving the left foot did not demonstrate Nondisplaced fractures at the base of the proximal phalanges of the second and third toes with overlying soft tissue swelling. 1. Fall with nondisplaced fractures involving the base of the proximal phalanges of the second and third toe of the left foot ? Patient admitted to a monitored bed, managed with immobilization pain management with consultation placed to orthopedic surgery. Plan is for patient to undergo surgical intervention ? 12/19/2023; Dr. Chen with podiatry was consulted from the ED on 12/18/2023, awaiting for his evaluation and intervention ? 12/20/2023;Patient underwent incision and drainage with delayed primary closure to open lacerations to digits 2 and 3 of the left foot on 12/19/2023; boot subsequently applied by podiatry. 2. Acute metabolic encephalopathy ? Secondary to acute hypoxic and hypercapnic respiratory failure with significant hypercarbia. Plan is for patient to be placed on NIV prior to any surgical intervention ? 12/19/2023 patient back to baseline. Repeated ABGs -12/20/2023;Patient CO2 remains markedly elevated and has myoclonic changes -12/21/2023; patient back to baseline patient to be assessed for possible discharge 3. COPD with acute exacerbation ? Admitted to the intensive care unit patient managed with systemic steroids, antibiotics, aerosol treatment as well as BiPAP therapy and oxygen which has been titrated to keep saturation greater than 90. Patient is followed by pulmonary medicine as outpatient 4. Chronic hypoxic respiratory failure ? Patient is on 2 to 4 L of oxygen at baseline. Repeated ABGs 5. History of pulmonary embolism ? Diagnosed in October 2022 patient was previously treated with systemic anticoagulation with apixaban he came off it due to cost 6. Hypertension - Blood pressure controlled, home medications continued with dose adjustment as needed 7. Obstructive sleep apnea ? Patient is on BiPAP at night 8. Chronic congestive heart failure with preserved ejection fraction ?-Echocardiogram 04/13/2021 shows an EF of 65% with stage II diastolic dysfunction, structurally normal valves and a pulmonary artery systolic pressure of 60 mmHg. Patient is on diuretics did continue 9. Tobacco dependence - Counseled on cessation, offered nicotine patch for tobacco cravings 10. Seasonal allergies -Continue home Singulair 11. Depression/anxiety -Patient is on Wellbutrin as well as Zoloft continued 10. DVT prophylaxis ?Plan is to initiate systemic anticoagulation following surgical intervention Time spent in the patient's overall evaluation,decision-making process, review of diagnostic data, adjustment of management, discussion with other providers, nursing nursing and ancillary staff involved in patient's care documentation,35 Minutes Charges/Coding Visit Charges Inpatient E&M: 37583 Subs Hosp L2
--- NOTE | 2023-12-21 09:20 | DS.PCM_ITS ---
Providers Date of Admission: 12/18/23 Date of Discharge: 12/21/23 Primary Care Physician: CLAYTON Monroy Consultations 12/19/23 08:15 Consult: Podiatry Routine Consulting Provider: Pelon Chen Reason for Consult: L foot fracture EMERGENT Consult: No Notified: Yes Date Notified: 12/18/23 Time Notified: 08:15 Method of Notification: ED Physician Initiated 12/19/23 10:11 Consult: Senior Market Intelligence Consultant / Pulmonary Medicine Routine Consulting Provider: Intensivists/Pulmonary Med Reason for Consult: Acute hypoxic and hypercapnic respiratory EMERGENT Consult: No Notified: Yes Date Notified: 12/19/23 Time Notified: 10:11 Method of Notification: Text Reason For Visit: HYPERCAPNIA, LEFT FOOT FRACTURE Diagnosis Discharge Diagnosis (1) Foot laceration: Status: Acute Code(s): S91.319A - Laceration without foreign body, unspecified foot, initial encounter Qualifiers: Encounter type: initial encounter Laterality: left Qualified Code(s): S91.312A - Laceration without foreign body, left foot, initial encounter (2) Chronic respiratory failure with hypoxia and hypercapnia: Status: Chronic Code(s): J96.11 - Chronic respiratory failure with hypoxia; J96.12 - Chronic respiratory failure with hypercapnia (3) Respiratory failure with hypoxia and hypercapnia: Status: Acute Code(s): J96.91 - Respiratory failure, unspecified with hypoxia; J96.92 - Respiratory failure, unspecified with hypercapnia Meghan ALBERTS, is a 53 M who presents with left foot pain. Patient states he tripped while trying to prevent a fall. He apparently hit his left leg against a dog gate and did notice some blood subsequently. Presented to the emergency department imaging studies involving the left foot did not demonstrate Nondisplaced fractures at the base of the proximal phalanges of the second and third toes with overlying soft tissue swelling. 1. Fall with nondisplaced fractures involving the base of the proximal phalanges of the second and third toe of the left foot ? Patient admitted to a monitored bed, managed with immobilization pain management with consultation placed to orthopedic surgery. Plan is for patient to undergo surgical intervention ? 12/19/2023; Dr. Chen with podiatry was consulted from the ED on 12/18/2023, awaiting for his evaluation and intervention ? 12/20/2023;Patient underwent incision and drainage with delayed primary closure to open lacerations to digits 2 and 3 of the left foot on 12/19/2023; boot subsequently applied by podiatry. 2. Acute metabolic encephalopathy ? Secondary to acute hypoxic and hypercapnic respiratory failure with significant hypercarbia. Plan is for patient to be placed on NIV prior to any surgical intervention ? 12/19/2023 patient back to baseline. Repeated ABGs -12/20/2023;Patient CO2 remains markedly elevated and has myoclonic changes -12/21/2023; patient back to baseline patient to be assessed for possible discharge 3. COPD with acute exacerbation ? Admitted to the intensive care unit patient managed with systemic steroids, antibiotics, aerosol treatment as well as BiPAP therapy and oxygen which has been titrated to keep saturation greater than 90. Patient is followed by pulmonary medicine as outpatient 4. Chronic hypoxic respiratory failure ? Patient is on 2 to 4 L of oxygen at baseline. Repeated ABGs 5. History of pulmonary embolism ? Diagnosed in October 2022 patient was previously treated with systemic anticoagulation with apixaban he came off it due to cost 6. Hypertension - Blood pressure controlled, home medications continued with dose adjustment as needed 7. Obstructive sleep apnea ? Patient is on BiPAP at night 8. Chronic congestive heart failure with preserved ejection fraction ?-Echocardiogram 04/13/2021 shows an EF of 65% with stage II diastolic dysfunction, structurally normal valves and a pulmonary artery systolic pressure of 60 mmHg. Patient is on diuretics did continue 9. Tobacco dependence - Counseled on cessation, offered nicotine patch for tobacco cravings 10. Seasonal allergies -Continue home Singulair 11. Depression/anxiety -Patient is on Wellbutrin as well as Zoloft continued 10. DVT prophylaxis ?Plan is to initiate systemic anticoagulation following surgical intervention Time spent in the patient's overall evaluation,decision-making process, review of diagnostic data, adjustment of management, discussion with other providers, nursing nursing and ancillary staff involved in patient's care documentation,35 Minutes Medications at Discharge Home Medications spironolactone 25 mg tablet 25 mg PO BID FLUID RETENTION/BLOOD PRESSURE 12/02/15 bupropion HCl 150 mg 24 hr tablet, extended release (Wellbutrin XL) 150 mg PO DAILY DEPRESSION 10/11/21 cyanocobalamin (vitamin B-12) 500 mcg tablet 500 mcg PO DAILY SUPPLEMENT 11/08/21 sertraline 100 mg tablet 100 mg PO DAILY DEPRESSION 01/23/22 montelukast 10 mg tablet (Singulair) 10 mg PO QPM COPD #30 tabs 06/30/22 mepolizumab 100 mg/mL subcutaneous auto-injector (Nucala) 300 mg subcut Q4W asthma 11/05/22 losartan 25 mg tablet 25 mg PO DAILY blood pressure #30 tabs 11/08/22 torsemide 20 mg tablet 20 mg PO BID FLUID RETENTION #60 tabs 11/08/22 furosemide 40 mg tablet 40 mg PO DAILY PRN FLUID RETENTION 01/01/23 albuterol sulfate 2.5 mg/3 mL (0.083 %) solution for nebulization 2.5 mg (3 mL) inhalation Q4H PRN shortness of breath or wheezing #360 mL 05/23/23 albuterol sulfate 90 mcg/actuation aerosol inhaler (Ventolin HFA) 2 puff inhalation Q4H PRN shortness of breath or wheezing #18 grams 05/23/23 cetirizine 10 mg tablet 10 mg PO DAILY allergies #90 tabs 05/30/23 metoprolol tartrate 50 mg tablet 50 mg PO BID BLOOD PRESSURE 06/10/23 cholecalciferol (vitamin D3) 125 mcg (5,000 unit) disintegrating tablet 125 mcg PO QODAY SUPPLEMENT 08/05/23 budesonide 1 mg/2 mL suspension for nebulization 1 mg (2 mL) inhalation BID WHEEZING/SHORTNESS OF BREATH #60 mL 08/27/23 budesonide-formoterol HFA 160 mcg-4.5 mcg/actuation aerosol inhaler (Symbicort) 2 puff inhalation BID SHORTNESS OF BREATH 10/08/23 gabapentin 100 mg capsule 200 mg PO QHS NERVE PAIN 10/24/23 fluticasone propionate 50 mcg/actuation nasal spray,suspension 2 spray intranasal DAILY PRN seasonal allergies 12/18/23 doxycycline hyclate 100 mg capsule 100 mg PO BID #14 caps 12/21/23 guaifenesin 1,200 mg tablet, extended release 12 hr (Mucus Relief ER) 1,200 mg PO BID #20 tabs 12/21/23 prednisone 20 mg tablet 40 mg (2 x 20 mg) PO DAILY shortness of breath #10 tabs 12/21/23 Physical Exam Narrative GENERAL: cooperative HEENT: Atraumatic; normocephalic EYES; Anicteric, Normal Conjunctiva NECK; supple, normal thyroid, RESPIRATORY: Diminished to auscultation CARDIOVASCULAR: Regular S1 S2, GI: soft, normoactive bowel sounds, : No Renal angle tenderness; EXTREMITIES: Left foot in a boot MUSCULOSKELETAL: no muscle wasting NEURO: Awake; no lateralizing signs. SKIN: No Rash PSYCH; Flat affect Weight / BMI Weight Weight: 149 kg Body Mass Index (BMI) 44.5 ABG / Lab / Microbiology Data 12/21/23 05:55 12/21/23 05:55 Laboratory: Laboratory Results - last 24 hr 12/21/23 05:55: WBC 9.9, RBC 3.71 L, Hgb 11.3 L, Hct 38.4 L, MCV 103.5 H, MCH 30.5, MCHC 29.4 L, RDW Std Deviation 46.7 H, RDW Coeff of Valerie 12.2, Plt Count 151, MPV 10.9, Immature Gran % (Auto) 0.400, Neut % (Auto) 64.3, Lymph % (Auto) 24.2, [place] % (Auto) 10.3 H, Eos % (Auto) 0.3, Baso % (Auto) 0.5, Absolute Neuts (auto) 6.4, Absolute Lymphs (auto) 2.39, Nucleated RBC % 0, Sodium 138, Potassium 3.5, Chloride 92 L, BUN 16, Creatinine 0.50 L, Estim Creat Clear Calc 250.66, Est GFR (MDRD) Af Amer 222, Est GFR (MDRD) Non-Af 183, BUN/Creatinine Ratio 31.9 H, Glucose 105, Calcium 8.9 Microbiology: Microbiology 12/19/23 18:44 Wound - Left Foot Gram Stain - Final 12/19/23 18:44 Wound - Left Foot Wound Culture - Preliminary Gram positive organism 12/19/23 18:44 Wound - Left Foot Gram Stain - Final 12/18/23 20:09 Sputum, Expectorated/Coughed Gram Stain - Final 12/18/23 20:09 Sputum, Expectorated/Coughed Respiratory Culture - Final Mixed normal respiratory seng. No Streptococcus pneumoniae, beta-hemolytic Streptococcus or Staphylococcus aureus isolated. ABG: ABG 12/21/23 05:01 Specimen Type ART Sample Site L Radial pH 7.39 Bicarbonate Actual 47.7 H Total CO2 > 50 Base Excess 23 H O2 Saturation 95 O2 % 40.0 ABG pCO2 79.3 H* ABG pO2 81 Tal Test Positive Respiration Rate 18 O2 Delivery Device BiPAP Vent Mode Not entered Tidal Volume 500.0 POC PEEP 14 Crit Call To/Read Back Yes Blood Gas Notified Whom Dr. meade Blood Gas Notified Time 05:04:34 Clinical Comments avaps D/C Instructions Discharge Diet: No restrictions Discharge Activity: Return to Normal Activity Call your doctor if you observe: Fever of 101 or Higher, Shortness of breath, Fainting spells and Chest pain Meaningful Use Info Meaningful Use Diagnoses (Choose all that apply): None applicable Discharge Plan Admission Admit Date/Time: 12/18/23 14:36 Attending Provider: Andre Meade Primary Care Provider: Chitra Scott Consulting Providers: Henry Cardenas; Tay Benavides; Reece Fernandes; Woo Luna; Raven Mann; Sravan Blunt; Vicki Llamas; Milena Moses; Yury Murphy; Pavan Ribeiro; Raul Gilbert; Ruy Garcia; Pelon Garcia Discharge Orders/Prescriptions Prescriptions: New guaifenesin [Mucus Relief ER] 1,200 mg Tablet Extended Release 12hr 1,200 mg PO BID Qty: 20 0RF doxycycline hyclate 100 mg capsule 100 mg PO BID Qty: 14 0RF Continued sertraline 100 mg tablet 100 mg PO DAILY Patient Comments: pt states he hasnt taken in about 6 months spironolactone 25 MG tablet 25 mg PO BID bupropion HCl [Wellbutrin XL] 150 mg Tablet Extended Release 24 Hr 150 mg PO DAILY Patient Comments: pt states he takes twice daily cyanocobalamin (vitamin B-12) 500 MCG tablet 500 mcg PO DAILY Nucala 100 mg/mL auto-injector 300 mg subcut Q4W Patient Comments: Takes around the of each month. Rx Instructions: administer as three 100 mg injections at separate sites torsemide 20 mg tablet 20 mg PO BID Qty: 60 2RF losartan 25 mg tablet 25 mg PO DAILY Qty: 30 1RF Patient Comments: pt states they take in the am furosemide 40 mg tablet 40 mg PO DAILY PRN (Reason: FLUID RETENTION) metoprolol tartrate 50 mg tablet 50 mg PO BID budesonide-formoterol [Symbicort] 160-4.5 mcg/actuation HFA aerosol inhaler 2 puff inhalation BID Patient Comments: pt states they normally take 2 puffs at night, but 2 in morning as needed gabapentin 100 mg capsule 200 mg PO QHS fluticasone propionate 50 mcg/actuation spray,suspension 2 spray INTRANASAL DAILY PRN (Reason: seasonal allergies) prednisone 20 mg tablet 40 mg PO DAILY Qty: 10 0RF Rx Instructions: take 2 tabs (40mg) once daily for 5 days cholecalciferol (vitamin D3) 125 mcg (5,000 unit) tablet,disintegrating 125 mcg PO QODAY Patient Comments: pt states he takes every morning montelukast [Singulair] 10 mg tablet 10 mg PO QPM Qty: 30 5RF albuterol sulfate 2.5 mg /3 mL (0.083 %) solution for nebulization 2.5 mg INHALATION Q4H PRN (Reason: shortness of breath or wheezing) Qty: 360 6RF albuterol sulfate [Ventolin HFA] 90 mcg/actuation HFA aerosol inhaler 2 puff INHALATION Q4H PRN (Reason: shortness of breath or wheezing) Qty: 18 6RF cetirizine 10 mg tablet 10 mg PO DAILY Qty: 90 3RF budesonide 1 mg/2 mL suspension for nebulization 1 mg inhalation BID Qty: 60 11RF Discontinued Eliquis 5 mg tablet 5 mg PO BID Qty: 60 11RF Patient Comments: pt states he hasnt taken since approx september Rx Instructions: 10 mg (2 TAB) twice daily for 7 days and then 5 mg (1 TAB) twice daily to continue. DVT/PE dose Referrals / Follow Up: Pelon Chen DPM [Med Staff - Active Staff] - Within 1 Week Chitra Scott NP-C [Primary Care Provider] - Within 2 Weeks Disposition Disposition (needs filled in before D/C Order can be placed): Home, Self Care Charges/Coding Visit Charges Inpatient E&M: 93815 Disch Hosp >30min
--- NOTE | 2023-12-21 09:41 | PHA.DC_ITS ---
Pharmacy [facility] has performed discharge medication reconciliation and counseling for this patient. The patient's discharge medication list was reviewed for discrepancies and discrepancies were resolved. The patient was counseled on the following discharge medications and changes in medications for homegoing were reviewed. The Reason for Use, instructions for use, and potential side effects were reviewed for all new medications. The patient's questions regarding all of their medications were answered. 1. Doxycycline 100 mg PO BID x 7 days 2. Guaifenesin 1200 mg PO BID x 10 days The patient was able to verbally demonstrate an understanding of their discharge medications. Medications at Discharge Home Medications spironolactone 25 mg tablet 25 mg PO BID FLUID RETENTION/BLOOD PRESSURE 12/02/15 bupropion HCl 150 mg 24 hr tablet, extended release (Wellbutrin XL) 150 mg PO DAILY DEPRESSION 10/11/21 cyanocobalamin (vitamin B-12) 500 mcg tablet 500 mcg PO DAILY SUPPLEMENT 11/08/21 sertraline 100 mg tablet 100 mg PO DAILY DEPRESSION 01/23/22 montelukast 10 mg tablet (Singulair) 10 mg PO QPM COPD #30 tabs 06/30/22 mepolizumab 100 mg/mL subcutaneous auto-injector (Nucala) 300 mg subcut Q4W asthma 11/05/22 losartan 25 mg tablet 25 mg PO DAILY blood pressure #30 tabs 11/08/22 torsemide 20 mg tablet 20 mg PO BID FLUID RETENTION #60 tabs 11/08/22 furosemide 40 mg tablet 40 mg PO DAILY PRN FLUID RETENTION 01/01/23 albuterol sulfate 2.5 mg/3 mL (0.083 %) solution for nebulization 2.5 mg (3 mL) inhalation Q4H PRN shortness of breath or wheezing #360 mL 05/23/23 albuterol sulfate 90 mcg/actuation aerosol inhaler (Ventolin HFA) 2 puff inhalation Q4H PRN shortness of breath or wheezing #18 grams 05/23/23 cetirizine 10 mg tablet 10 mg PO DAILY allergies #90 tabs 05/30/23 metoprolol tartrate 50 mg tablet 50 mg PO BID BLOOD PRESSURE 06/10/23 cholecalciferol (vitamin D3) 125 mcg (5,000 unit) disintegrating tablet 125 mcg PO QODAY SUPPLEMENT 08/05/23 budesonide 1 mg/2 mL suspension for nebulization 1 mg (2 mL) inhalation BID WHEEZING/SHORTNESS OF BREATH #60 mL 08/27/23 budesonide-formoterol HFA 160 mcg-4.5 mcg/actuation aerosol inhaler (Symbicort) 2 puff inhalation BID SHORTNESS OF BREATH 10/08/23 gabapentin 100 mg capsule 200 mg PO QHS NERVE PAIN 10/24/23 fluticasone propionate 50 mcg/actuation nasal spray,suspension 2 spray intranasal DAILY PRN seasonal allergies 12/18/23 doxycycline hyclate 100 mg capsule 100 mg PO BID #14 caps 12/21/23 guaifenesin 1,200 mg tablet, extended release 12 hr (Mucus Relief ER) 1,200 mg PO BID #20 tabs 12/21/23 prednisone 20 mg tablet 40 mg (2 x 20 mg) PO DAILY shortness of breath #10 tabs 12/21/23
[2023-12-21 10:06] LABS: Carbon Dioxide > 45.0 mmol/L (21.0-32.0)
--- NOTE | 2023-12-21 11:30 | CASEMGMT ---
RN CM in to discuss needs at discharge. Patient would like [facility] at discharge, declined list. Patient denied further needs, family will have portable tank at discharge. RN CM sent referral to [facility], awaiting acceptance. CM will continue to follow this patient and plan for a safe discharge.
--- NOTE | 2023-12-21 11:39 | PCM.PN.SRG ---
Subjective Subjective Mr. Ku is a 53-year-old male seen at bedside today for dressing changes to left lower extremity. Patient is status post incision and drainage with delayed primary closure to the second and third digit secondary to laceration, left foot. DOS #12/19/2023. Patient states pain improved. He is feeling better. He denies full weightbearing to left lower extremity with retail event assistant of mariam rdz. Denies any additional trauma. No constitutional symptoms. No other pedal complaints at this time. Objective Data Objective Data Vital Signs: Vital Signs Temp Pulse Resp BP Pulse Ox O2 Del Method O2 Flow Rate 98.3 F 82 18 112/79 93 Nasal Cannula 4 12/21/23 09:06 12/21/23 09:09 12/21/23 09:06 12/21/23 09:09 12/21/23 09:53 12/21/23 09:53 12/21/23 10:08 FiO2 35 12/21/23 03:40 Oxygen Flow Rate (L/min) 4 Oxygen Delivery Method Nasal Cannula Weight: 149 kg Body Mass Index (BMI) 44.5 Intake & Output: Intake and Output for Last 24 Hours 12/19/23 12/20/23 12/21/23 23:59 23:59 23:59 Intake Total 200 / 200 760 / 760 847.5 / 847.5 Output Total 700 / 700 100 / 100 Balance 200 / 200 60 / 60 747.5 / 747.5 Lab / Micro Data 12/21/23 05:55 12/21/23 05:55 Labs: Laboratory Results - last 24 hr 12/21/23 05:55: WBC 9.9, RBC 3.71 L, Hgb 11.3 L, Hct 38.4 L, MCV 103.5 H, MCH 30.5, MCHC 29.4 L, RDW Std Deviation 46.7 H, RDW Coeff of Valerie 12.2, Plt Count 151, MPV 10.9, Immature Gran % (Auto) 0.400, Neut % (Auto) 64.3, Lymph % (Auto) 24.2, [place] % (Auto) 10.3 H, Eos % (Auto) 0.3, Baso % (Auto) 0.5, Absolute Neuts (auto) 6.4, Absolute Lymphs (auto) 2.39, Nucleated RBC % 0, Sodium 138, Potassium 3.5, Chloride 92 L, Carbon Dioxide > 45.0 H*, Anion Gap TNP, BUN 16, Creatinine 0.50 L, Estim Creat Clear Calc 250.66, Est GFR (MDRD) Af Amer 222, Est GFR (MDRD) Non-Af 183, BUN/Creatinine Ratio 31.9 H, Glucose 105, Calcium 8.9 Micro: Microbiology 12/19/23 18:44 Wound - Left Foot Gram Stain - Final 12/19/23 18:44 Wound - Left Foot Anaerobic Culture - Preliminary Checking for anaerobes, further studies to follow. 12/19/23 18:44 Wound - Left Foot Gram Stain - Final 12/19/23 18:44 Wound - Left Foot Wound Culture - Preliminary Gram positive organism 12/18/23 20:09 Sputum, Expectorated/Coughed Gram Stain - Final 12/18/23 20:09 Sputum, Expectorated/Coughed Respiratory Culture - Final Mixed normal respiratory seng. No Streptococcus pneumoniae, beta-hemolytic Streptococcus or Staphylococcus aureus isolated. ABG Data ABG results: ABG 12/21/23 05:01 Specimen Type ART Sample Site L Radial pH 7.39 Bicarbonate Actual 47.7 H Total CO2 > 50 Base Excess 23 H O2 Saturation 95 O2 % 40.0 ABG pCO2 79.3 H* ABG pO2 81 Tal Test Positive Respiration Rate 18 O2 Delivery Device BiPAP Vent Mode Not entered Tidal Volume 500.0 POC PEEP 14 Crit Call To/Read Back Yes Blood Gas Notified Whom Dr. meade Blood Gas Notified Time 05:04:34 Clinical Comments avaps Physical Exam Narrative Neurovascular status is unchanged. Capillary refill time is brisk to all digits to left lower extremity. Incisions are well coapted with suture. Evidence of mild maceration appreciated to the interspaces of 1, 2 and 3 of the left foot. Mild pain to palpation to the incisions of the plantar aspect of digits 2 and 3. No evidence of cyanosis or duskiness to the second and third digit of the left foot. No pain with calf compression. Assessment & Plan Assessment/Plan (1) Open fracture of toe of left foot: QUALIFIERS: Encounter type: initial encounter Toe: lesser toe Phalanx: proximal Fracture alignment: nondisplaced Qualified Code(s): S92.515B - Nondisplaced fracture of proximal phalanx of left lesser toe(s), initial encounter for open fracture PLAN: Patient was examined and evaluated. All findings were discussed with the patient. All questions were answered to the patient's satisfaction. Patient is recovering well from his surgery. POD#2. Patient's incision was dressed with Betadine paint, dry sterile dressing, and a single layer Peralta compression bandage was donned to the left lower extremity. Educated the patient to be partial weightbearing to heel to left foot. Full weightbearing to the right lower extremity. Patient is planning to discharge with home health care for PT and OT. Educated the patient to keep the dressing clean dry and intact and do not remove or get it wet. Patient will follow-up next week with Dr. Chen in office for evaluation. Medicine: On board, medical management [employer] Custodian: On board Social work: On board, discharge planning Podiatry will continue to follow while the patient is in house. Patient will follow-up [address] Chen in private office. Thank you for letting me be involved in patient's care! (2) Foot laceration: QUALIFIERS: Encounter type: initial encounter Laterality: left Qualified Code(s): S91.312A - Laceration without foreign body, left foot, initial encounter
--- NOTE | 2023-12-21 17:14 | CASEMGMT ---
RN CM receive call from [facility] and start of care planned for Saturday 12/23. RN CM in and updated patient, patient had no further questions or concerns at this time.
--- OUTSIDE RECORDS SUMMARY | 2023-12-25 11:16 | XMS RPT_ITS | CCD ---
Author Name Unknown Address [address] [place] [address] Organization [facility] Care Team Providers Care Sales Assistant Displays Name Role Phone Alesia Morales CNP Unavailable [phone] Lyons, Mehool A Unavailable Unavailable Lyons, Mehool A Unavailable Unavailable Dread Milligan Unavailable Unavailable Dread Milligan Unavailable Unavailable Dread Milligan Unavailable Unavailable Dread Milligan Unavailable Unavailable Dread Milligan Unavailable Unavailable Dread Milligan Unavailable Unavailable Dread Milligan Unavailable Unavailable Dread Milligan Unavailable Unavailable Dread Milligan Unavailable Unavailable Dread Milligan Unavailable Unavailable Dread Milligan Unavailable Unavailable Dread iMlligan Unavailable Unavailable Dread Milligan Unavailable Unavailable Dread Milligan Unavailable Unavailable Lyons, Mehool Attending Unavailable PROVIDER, UNKNOWN Referring Unavailable Dread Milligan Primary Care Unavailable LyonsMe joseluishool Attending Unavailable PROVIDER, UNKNOWN Referring Unavailable Dread Milligan Primary Care Unavailable Donna Lyons Attending Unavailable PROVIDER, UNKNOWN Referring Unavailable Dread Milligan Primary Care Unavailable MARIA ANTONIA SERRA Attending Unavailable PROVIDER, UNKNOWN Referring Unavailable Dread Milligan Primary Care Unavailable Dread Milligan Unavailable Unavailable Dread Milligan Unavailable Unavailable Dread Milligan Unavailable Unavailable Unavailable Dr. Dread Milligan Referring Unavailable Fabian, Dr. Eason Primary Care Unavailable Dr. Dread Milligan Attending Unavailable Fabian, Dr. Eason Referring Unavailable Fabian, Dr. Eason Primary Care Unavailable Fabian, Dr. Eason Attending Unavailable Fabian, Dr. Eason Referring Unavailable Fabian, Dr. Eason Primary Care Unavailable Fabian, Dr. Eason Attending Unavailable Fabian, Dr. Eason Primary Care Unavailable Fabian, Dr. Eason Attending Unavailable Fabian, Dr. Eason Referring Unavailable Unavailable Unavailable CHANDLER ELDRIDGE Attending Unavailab DREAD Agudelo Primary Care Unavailable Dread Milligan MD Unavailable Chitra Bone Primary Care Provider Elizabeth oWoten LPN Unavailable Unavailable Dread Milligan Primary Care Provider DREAD MILLIGAN Primary Care Unavailable RENETTA [place]BETT Attending Unavailable BEAR BOJORQUEZ Attending Unavailable Dread Milligan Primary Care Provider Tay Benavides MD Unavailable CHITRA SCOTT Primary Care Unavailable CHITRA SCOTT Primary Care Unavailable CHITRA SCOTT Attending Unavailable CHITRA SCOTT Primary Care Unavailable CHITRA SCOTT Attending Unavailable CHITRA SCOTT Primary Care Unavailable CHITRA SCOTT Attending Unavailable CHITRA SCOTT Primary Care Unavailable CHITRA SCOTT Attending Unavailable CHITRA SCOTT Primary Care Unavailable Allergies Allergy Classification Reported Allergen(s) Allergy Type Date of Onset Reaction(s) Facility Macrolides (antibiotic) (3 sources) Clarithromycin; Translations: [Biaxin] Drug Allergy [facility] Work Phone: Penicillins (antibiotic) (3 sources) Penicillins; Translations: [Penicillins] Drug Allergy Rash [facility] Work Phone: (8 sources) clarithromycin; Translations: [Biaxin] drug allergy 6 Pulmonary Medicine [facility] Work Phone: (1 source) penicillin v drug allergy 6 Pulmonary Medicine [facility] Work Phone: (20 sources) Penicillins; Translations: [penicillins] Propensity to adverse reactions to drug (disorder) 6 Rash, Swelling, Other [facility] Repository (17 sources) Clarithromycin; Translations: [Biaxin] Drug Allergy 6 Hives, Other, Rash [facility] (7 sources) Clarithromycin; Translations: [CLARITHROMYCIN ] Drug Allergy 6 Hives [facility] Repository (6 sources) Pollen; Translations: [POLLEN EXTRACTS] Propensity to adverse reactions 7 Unknown [facility] Work Phone: Medications Current Medications Medication Drug Class(es) Dates Sig (Normalized) Sig (Original) albuterol 0.83 mg/ml inhalation solution (20 sources) beta2-Adrenergic Agonist Start: 05-22-2023 take 2.5 mg by inhalation every four hours as needed albuterol 2.5 mg /3 mL (0.083 %) nebulizer solution Take 3 mL (2.5 mg) by nebulization every 4 hours if needed for wheezing or shortness of breath. 0 05/22/2023 Active Completed/Discontinued Medications Medication Drug Class(es) Dates Sig (Normalized) Sig (Original) acetylcysteine 600 mg oral capsule (5 sources) Antidote, Mucolytic, Antidote for Acetaminophen Overdose U-Uqfrzd-T-Cystei ne 600 MG Oral Capsule Refills: 0 Active albuterol 0.833 mg/ml / ipratropium bromide 0.167 mg/ml inhalant solution (20 sources) Anticholinergic, beta2-Adrenergic Agonist Start: 02-03-2016 IPRATROPIUM-ALBUT DUSTIN 0.5-2.5 (3) MG/3ML SOLN One amuple INH q 6 hours IPRATROPIUM-ALBUT DUSTIN [id number] Alesia Morales MARKET RISK MANAGER Problems Active Problems Problem Classification Problem Date Documented Da te Episodic/Chronic Anxiety disorders (20 sources) Anxiety; Translations: [Anxiety state, unspecified] Onset: 06-26-2023 06-26-2023 Chronic Asthma (1 source) Severe persistent asthma; Translations: [Asthma, unspecified type, unspecified] Chronic Chronic obstructive pulmonary disease and bronchiectasis (20 sources) Chronic obstructive lung disease; Translations: [End stage chronic obstructive airways disease] Onset: 12-08-2015 Resolved: 09-21-2016 09-21-2016 Chronic Past or Other Problems Problem Classification Problem Date Documented Da te Episodic/Chronic Diabetes mellitus without complication (20 sources) Prediabetes; Translations: [Other abnormal glucose] Onset: 06-26-2023 06-26-2023 Episodic Mood disorders (4 sources) Mood disorders Onset: 06-26-2023 06-26-2023 Open wounds of extremities (20 sources) Open wound of lower limb; Translations: [Open wound of knee, leg [except thigh], and ankle, without mention of complication] Resolved: 01-03-2021 Episodic Other aftercare (2 sources) Encounter for follow-up examination after completed treatment for conditions other than malignant neoplasm; Translations: [Encounter for follow-up examination after completed treatment for conditions other than malignant neoplasm] Onset: 06-26-2023 Episodic Other connective tissue disease (6 sources) Swelling of lower leg; Translations: [Swelling of limb] Onset: 06-26-2023 Resolved: 06-26-2023 06-26-2023 Episodic Other hematologic conditions (20 sources) Erythrocytosis; Translations: [Polycythemia vera] Onset: 11-27-2017 09-09-2022 Episodic Other hematologic conditions (4 sources) Secondary polycythemia; 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] Onset: 02-13-2017 06-26-2023 Episodic Other lower respiratory disease (20 sources) Hypoxemia; Translations: [Hypoxemia] Onset: 06-26-2023 06-26-2023 Episodic Other nutritional; endocrine; and metabolic disorders (20 sources) Personal history of other endocrine, nutritional and metabolic disease; Translations: [History of nutritional deficiency] Onset: 06-26-2023 06-26-2023 Episodic Other screening for suspected conditions (not mental disorders or infectious disease) (10 sources) Encounter for screening for malignant neoplasm of prostate; Translations: [Encounter for screening for other suspected endocrine disorder] Onset: 06-26-2023 Episodic Pneumonia (1 source) Pneumonia; Translations: [Pneumonia, unspecified organism] Onset: 09-07-2016 09-07-2016 Episodic Respiratory failure; insufficiency; arrest (1 source) Acute respiratory failure; Translations: [Acute respiratory failure, unspecified whether with hypoxia or hypercapnia] Onset: 12-08-2015 12-08-2015 Episodic Skin and subcutaneous tissue infections (20 sources) Cellulitis of leg, excluding foot; Translations: [Cellulitis and abscess of leg, except foot] Resolved: 01-03-2021 Episodic Unclassified (5 sources) Patient encounter status; Translations: [Screening for colorectal cancer] Unclassified (4 sources) Onset: 06-26-2023 Resolved: 08-15-2023 06-26-2023 NEGATED: Highlighted row has not occurred!Residual codes; unclassified (10 sources) Disease Episodic Results Test Name Value Interpretation Reference Range Facil ity Vital Signs Date Time Vital Sign Value Performing Clinician Facility 10-23-2023 14:33-0500 Body height 182.9 cm Chitra Scott WAISTLINE JOINER-MARKET RISK MANAGER Work Phone: [phone] [place] [address] 10-23-2023 14:33-0500 Body mass index (BMI) [Ratio] 45.16 kg/m2 Chitra Scott WAISTLINE JOINER-MARKET RISK MANAGER Work Phone: [phone])[phone] [place] [address] 10-23-2023 14:33-0500 Body weight 151.05 kg Chitra Scott WAISTLINE JOINER-MARKET RISK MANAGER Work Phone: [phone] [place] [address] 10-23-2023 14:33-0500 Diastolic blood pressure 80 mm[Hg] Chitra Scott WAISTLINE JOINER-MARKET RISK MANAGER Work Phone: [phone] [place] [address] 10-23-2023 14:33-0500 Heart rate 67 /min Chitra Scott WAISTLINE JOINER-MARKET RISK MANAGER Work Phone: [phone] [place] [address] 10-23-2023 14:33-0500 Systolic blood pressure 128 mm[Hg] Chitra Scott WAISTLINE JOINER-MARKET RISK MANAGER Work Phone: [phone] [place] [address] 10-02-2023 08:41-0500 Body height 182.9 cm Chitra Scott WAISTLINE JOINER-MARKET RISK MANAGER Work Phone: [phone] [place] [address] 10-02-2023 08:41-0500 Body mass index (BMI) [Ratio] 45.16 kg/m2 Chitra Scott WAISTLINE JOINER-MARKET RISK MANAGER Work Phone: [phone] [place] [address] 10-02-2023 08:41-0500 Body weight 151.05 kg Chitra Scott WAISTLINE JOINER-MARKET RISK MANAGER Work Phone: [phone] [place] [address] 10-02-2023 08:41-0500 Diastolic blood pressure 80 mm[Hg] Chitra Scott WAISTLINE JOINER-MARKET RISK MANAGER Work Phone: [phone] [place] [address] 10-02-2023 08:41-0500 Heart rate 85 /min Chitra Scott WAISTLINE JOINER-MARKET RISK MANAGER Work Phone: [facility] 10-02-2023 08:41-0500 Systolic blood pressure 130 mm[Hg] Chitra Scott WAISTLINE JOINER-MARKET RISK MANAGER Work Phone: [facility] 08-15-2023 13:35-0400 Body height 182.9 cm Chitraruthy Scott WAISTLINE JOINER-MARKET RISK MANAGER Work Phone: [facility] 08-15-2023 13:35-0400 Body mass index (BMI) [Ratio] 43.94 kg/m2 Chitra Scott WAISTLINE JOINER-MARKET RISK MANAGER Work Phone: [facility] 08-15-2023 13:35-0400 Body weight 146.97 kg Chitra Scott WAISTLINE JOINER-MARKET RISK MANAGER Work Phone: [facility] 08-15-2023 13:35-0400 Diastolic blood pressure 70 mm[Hg] Chitra Scott WAISTLINE JOINER-MARKET RISK MANAGER Work Phone: [facility] 08-15-2023 13:35-0400 Heart rate 79 /min Chitra Scott WAISTLINE JOINER-MARKET RISK MANAGER Work Phone: [facility] 08-15-2023 13:35-0400 Systolic blood pressure 112 mm[Hg] Chitra Scott WAISTLINE JOINER-MARKET RISK MANAGER Work Phone: [facility] 07-06-2023 10:55-0400 Body height 182.9 cm Renetta Corbett WAISTLINE JOINER - MARKET RISK MANAGER Work Phone: [employer] 07-06-2023 10:55-0400 Body mass index (BMI) [Ratio] 44.48 kg/m2 Renetta Corbett WAISTLINE JOINER - MARKET RISK MANAGER Work Phone: [employer] 07-06-2023 10:55-0400 Body weight 148.78 kg Renetta Corbett WAISTLINE JOINER - MARKET RISK MANAGER Work Phone: [employer] 07-06-2023 10:55-0400 Diastolic blood pressure 70 mm[Hg] Renetta Corbett WAISTLINE JOINER - MARKET RISK MANAGER Work Phone: [employer] 07-06-2023 10:55-0400 Heart rate 73 /min Renetta Corbett WAISTLINE JOINER - MARKET RISK MANAGER Work Phone: [employer] 07-06-2023 10:55-0400 Respiratory rate 16 /min Renetta Corbett WAISTLINE JOINER - MARKET RISK MANAGER Work Phone: [facility] 07-06-2023 10:55-0400 SaO2% (BldA) [Mass fraction] 93 % Renetta Corbett WAISTLINE JOINER - MARKET RISK MANAGER Work Phone: [facility] [employer] Encounters Encounter Date Encounter Type Care Provider Facility Start: 10-23-2023 End: 10-23-[address] [facility] Start: 10-23-2023 End: 10-23-2023 Transitional care manage srvc 14 day discharge Chitra Scott WAISTLINE JOINER-MARKET RISK MANAGER Work Phone: [facility] Procedures Date Procedure Procedure Detail Performing Clinician Start: 10-02-2023 FLU VACCINE (IIV4) G REATER THAN OR EQUAL TO 3YO PRESERVATIVE FREE CHITRA SCOTT Start: 10-02-2023 Comprehensive metabo lic 2000 panel - Serum or Plasma CHITRA SCOTT Start: 10-02-2023 Lipid panel CHITRA Mims Start: 10-02-2023 Lipid 1996 panel - S ember or Plasma Chitra Scott WAISTLINE JOINER-MARKET RISK MANAGER Work Phone: Start: 06-26-2023 Comprehensive metabo lic 2000 panel - Serum or Plasma CHITRA SCOTT Start: 06-26-2023 Hemoglobin A1c/Hemoglobin.total in Blood CHITRA SCOTT Start: 06-26-2023 Lipid panel CHITRA Mims Start: 06-26-2023 PROSTATE SPECIFIC AN TIGEN, SCREEN CHITRA SCOTT Start: 06-26-2023 TESTOSTERONE,FREE AND TOTAL CHITRA SCOTT Start: 06-26-2023 TSH WITH REFLEX TO F REE T4 IF ABNORMAL CHITRA SCOTT Start: 06-26-2023 VITAMIN D 25-HYDROXY,TOTAL CHITRA SCOTT Start: 06-26-2023 Oncology colorectal screening roxanne 10 dna markrs CHITRA SCOTT Start: 06-26-2023 Lipid 1996 panel - S ember or Plasma Bear Bojorquez MD Work Phone: Start: 01-12-2022 Lipid 1996 panel - S ember or Plasma Chitra Scott WAISTLINE JOINER-MARKET RISK MANAGER Work Phone: Start: 03-16-2020 Noninvasive colorect al cancer DNA and occult blood screening [Presence] in Stool Dread Milligan Start: 01-20-2020 Blood count complete auto&auto difrntl wbc Dread Milligan Start: 01-20-2020 Comprehensive metabo lic 2000 panel Dread Milligan Start: 01-20-2020 Hemoglobin glycosylated a1c Dread Milligan Start: 01-20-2020 Lipid panel Dread Delarosasamreen corey Start: 01-20-2020 TSH WITH REFLEX TO F REE T4 IF ABNORMAL Dread Milligan Start: 09-07-2016 End: 11-03-2016 Bacteria sputum culture Elvira Slater HYDROELECTRIC SYSTEMS TECHNICIAN Work Phone: Start: 09-07-2016 End: 11-03-2016 Chest x-ray Elvira Slater HYDROELECTRIC SYSTEMS TECHNICIAN Work Phone: Start: 08-07-2016 End: 09-22-2016 Pulmonary Function Test - complete Alesia Morales MARKET RISK MANAGER Work Phone: Start: 08-07-2016 End: 09-22-2016 Pulmonary stress test/simple Alesia Morales MARKET RISK MANAGER Work Phone: Start: 05-08-2016 End: 06-09-2016 Follow Up Appt 3 months Alesia brown MARKET RISK MANAGER Work Phone: Start: 05-08-2016 End: 05-09-2016 Referral to respiratory physician Alesia Morales CNP Work Phone: Start: 02-03-2016 End: 06-08-2016 [facility] Benavides Work Phone: Start: 02-03-2016 End: 06-08-2016 Follow Up Appt 3 months Tay Benavides Work Phone: Start: 12-23-2015 End: 06-08-2016 Follow Up Appt 1 month Alesia avila MARKET RISK MANAGER Work Phone: Start: 12-23-2015 End: 06-08-2016 Pulmonary Function Test - complete Alesia Morales MARKET RISK MANAGER Work Phone: Start: 12-23-2015 End: 06-08-2016 Pulmonary stress test/simple Alesia Morales MARKET RISK MANAGER Work Phone: Start: 12-08-2015 End: 06-08-2016 Retitration with follow up (patient on CPAP currently) Tay Rosales Kennedy Work Phone: Hernia repair Dread Milligan Tonsillectomy Dread Milligan Plan of Treatment Date Care Activity Detail Author Start: 2033 Pneumococcal Vaccine: Pediatrics (0 to 5 Years) and At-Risk Patients (6 to 64 Years) (3 - PPSV23 if available, else PCV20) Pneumococcal Vaccine: Pediatrics (0 to 5 Years) and At-Risk Patients (6 to 64 Years) (3 - PPSV23 if available, else PCV20) [facility] Start: 2033 Pneumococcal Vaccine: Pediatrics (0 to 5 Years) and At-Risk Patients (6 to 64 Years) (3 - PPSV23 or PCV20) Pneumococcal Vaccine: Pediatrics (0 to 5 Years) and At-Risk Patients (6 to 64 Years) (3 - PPSV23 or PCV20) [facility] Start: 05-13-2033 DTaP/Tdap/Td Vaccines (2 - Td or Tdap) DTaP/Tdap/Td Vaccines (2 - Td or Tdap) [facility] Start: 10-02-2028 Lipid panel Lipid Panel [facility] Start: 06-26-2028 Lipid panel Lipid Panel [facility] Start: 01-12-2027 Lipid panel Lipid Panel [facility] Start: 10-02-2024 Creatinine measurement Creatinine Level [facility] Start: 10-02-2024 Potassium measurement Potassium Level [facility] Start: 06-27-2024 Medicare Annual Wellness Visit Medicare Annual Wellness Visit (AWV) [facility] Start: 06-26-2024 Creatinine measurement Creatinine Level [facility] Start: 06-26-2024 Diabetes mellitus screening Diabetes Screening [facility] Start: 06-26-2024 Hemoglobin A1c measurement Diabetes: Hemoglobin A1C [facility] Start: 06-26-2024 Potassium measurement Potassium Level [facility] Start: 03-17-2024 Screening for malignant neoplasm of colon [facility] Start: 01-08-2024 End: 01-08-2024 Patient encounter procedure 01/08/2024 3:15 PM EST Office Visit [facility] [address] [place] [id number] Bear Bojorquez MD [address] [place] [address] [facility] Start: 01-01-2024 End: 01-01-2024 Patient encounter procedure 01/01/2024 10:00 AM EST Office Visit [facility] [address] [place] [address] Chitra Scott, WAISTLINE JOINER-MARKET RISK MANAGER [address] [facility] [address] [place] [address] [facility] Start: 07-27-2023 Influenza vaccination Influenza Vaccine (#1) [facility] Start: 07-06-2023 End: 07-06-2023 Patient encounter procedure 07/06/2023 11:00 AM EDT Office Visit [facility] [address] [place] [id number] Renetta Corbett, WAISTLINE JOINER - MARKET RISK MANAGER [address], [address] [place] [address] [facility] Start: 06-26-2023 End: 06-26-2024 25-hydroxyvitamin D3 [Mass/volume] in Serum or Plasma [facility] Work Phone: Immunizations Immunization Date Immunization Notes Care Provider Fa cili 10-02-2023 influenza, injectabl e, quadrivalent, preservative free Chitra Scott WAISTLINE JOINER-MARKET RISK MANAGER Work Phone: [facility] 05-13-2023 tetanus toxoid, redu gary diphtheria toxoid, and acellular pertussis vaccine, adsorbed Chitra Scott WAISTLINE JOINER-MARKET RISK MANAGER Work Phone: [facility] Work Phone: 10-11-2022 influenza, seasonal, injectable Dread O Milligan Work Phone: [facility] Work Phone: 10-11-2022 influenza virus vaccine, unspecified formulation Chitra Scott WAISTLINE JOINER-[facility] Work Phone: [facility] Work Phone: 10-13-2021 influenza, seasonal, injectable, preservative free Dreadxavi Milligan Work Phone: [facility] Work Phone: 01-03-2021 pneumococcal conjuga te vaccine, 13 valent Dread O Milligan Work Phone: [facility] Work Phone: Payers Date Payer Category Payer Private Health Insurance [id number] 2021 Private Health Insurance HUMANA HUMANA PPO [id number] 2021-Present [address] [address] [place] [address] [id number] 2013 Medicare 1970 Unknown [id number] [id number]. 1970 Unknown [id number] 2.16.840.1.221431.3.579.2. 1970 Unknown [id number] 2.16.840.1.992507.3.579.2. 1968 Unknown [id number] 2.16.840.1.665422.3.579.2. 1968 Unknown [id number] 2.16.840.1.768637.3.579.2. 1968 Unknown [id number] 2.16.840.1.272053.3.579.2. 668 1968 Unknown [id number] 2.16.840.1.691445.3.579.2. 668 1970 Unknown [id number] 2.16.840.1.006440.3.579.2. 356 1968 Unknown [id number] 2.16.840.1.811752.3.579.2. 356 1968 Unknown [id number] 2.16.840.1.427748.3.579.2. 356 1968 Unknown [id number] 2.16.840.1.293134.3.579.2. 356 1968 Unknown [id number] 2.16.840.1.753157.3.579.2. 1245 1968 Unknown [id number] 2.16.840.1.804643.3.579.2. 1245 1968 Unknown [id number] 2.16.840.1.935275.3.579.2. 1244 1968 Unknown [id number] 2.16.840.1.477270.3.579.2. 1244 1968 Unknown [id number] 2.16.840.1.217267.3.579.2. 1244 1968 Unknown [id number] [id number]. 1244 Private Health Insurance [id number] Unknown Social History Date Type Detail Facility Start: 06-26-2023 End: 10-23-2023 Does not have living will Does not have living will [facility] Work Phone: Start: 11-03-2022 End: 06-26-2023 Tobacco smoking status NHIS Ex-smoker [facility] Work Phone: End: 11-15-2017 History of tobacco use Current smoker [facility] Work Phone: End: 11-15-2017 History of tobacco use Cigarette Smoker [facility] Work Phone: Start: 06-26-2023 Tobacco use and exposure Smokeless tobacco non-user [facility] Work Phone: Start: 06-26-2023 End: 10-23-2023 Alcohol intake Lifetime non-drinker (finding) [facility] Work Phone: Start: 06-26-2023 End: 10-23-2023 Tobacco use panel [facility] Work Phone: Start: 1970 [facility] Start: 06-25-2023 Gender identity Identifies as male gender (finding) [facility] Work Phone: Start: 06-25-2023 Sexual orientation Heterosexual (fin ding) [facility] Work Phone: Start: 06-16-2023 End: 10-23-2023 Exposure to SARS-CoV-2 (event) Not sure [facility] Work Phone: Start: 11-03-2022 Tobacco use and exposure Former smokeless tobacco user [facility] End: 2015 History of tobacco use User of smokeless tobacco [facility] Start: 11-14-2022 End: 07-06-2023 Alcohol intake Current drinker of alcohol (finding) [facility] Start: 11-03-2022 Alcohol Comment every few months [facility] Start: 1970 Sex Assigned At Not on file [facility] NEGATED: Highlighted row - - [facility] Work Phone: Functional Status Date Assessment Result Facility NEGATED: Highlighted row Functional performance Functional status health issues are not documented Disease [facility] Work Phone: Mental Status Date Assessment Result Facility NEGATED: Highlighted row Cognitive function [Interpretation] Cognitive status health issues are not documented Disease [facility] Work Phone: Clinical Notes 11-15-2022 to 10-23-2023 Joan Monique OPERATER - 10/23/2023 2:20 PM ESTWILBERT Hussein - 10/23/2023 2:20 PM ESTAssessment & Plan Note - WILBRET Hussein - 10/05/2023 4:34 PM ESTPatient Instructions Note Date & Type Note Facility 10-23-2023 History of Presen t illness Narrative Hospital Follow up Stopped his cholesterol medication caused a headache. Off of Eliquis due to cost Patient: [place] : 1970 PCP: WILBERT Hussein Program: No linked episodes [place] is a 52 y.o. male presenting today for follow-up after being discharged from the hospital 12 days ago. The main problem requiring admission was Hypercapnic respiratory failure/respiratory failure. The discharge summary and/or Transitional Care Management documentation was reviewed. Medication reconciliation was performed as indicated via the Ankit as Reviewed timestamp. [place] was contacted by Transitional Care Management services two days after his discharge. This encounter and supporting documentation was reviewed. The complexity of medical decision making for this patient's transitional care is moderate. He is currently being admitted every month for hypercapnia and respiratory failure. It has been recommended by his hearing aid mechanic and the hospitalitis that he be discharged with NIV (non-invasive ventilator) unit to be used at home, to keep him from having to seek emergent care and being hospitalized when his oxygen saturations drop. When he is hospitalized he receives Bipap, nebulizers which he has at home and is placed on steroids. Which this can also be done at home. Per documentation done by pulmonology the patient is end-stage Asthma/COPD Gold Stage 4. He currently uses 8L with activity on a normal basis and has a condenser at home that increases to 10L if needed. Oxygen use: He is currently in office on 3L with portable oxygen tank per [place] and O2 sats 89%. He states, he keeps it turned down to conserve the oxygen when he is out, but has another tank in his truck. Leg pain: gabapentin helping, but feels it can be increased. Physical Exam Vitals and nursing note reviewed. Constitutional: Appearance: Normal appearance. Interventions: Nasal cannula in place. HENT: Head: Normocephalic and atraumatic. Cardiovascular: Rate and Rhythm: Normal rate and regular rhythm. Pulses: Normal pulses. Heart sounds: Normal heart sounds. Pulmonary: Effort: Pulmonary effort is normal. Tachypnea present. No respiratory distress. Breath sounds: No stridor. Examination of the right-lower field reveals decreased breath sounds. Examination of the left-lower field reveals decreased breath sounds. Decreased breath sounds present. No wheezing, rhonchi or rales. Comments: On oxygen by [place] 3-4L Musculoskeletal: General: Normal range of motion. Cervical back: Normal range of motion. Right lower leg: Edema present. Left lower leg: Edema present. Skin: General: Skin is warm and dry. Coloration: Skin is pale. Neurological: General: No focal deficit present. Mental Status: He is alert and oriented to person, place, and time. Psychiatric: Mood and Affect: Mood normal. Behavior: Behavior normal. Thought Content: Thought content normal. Judgment: Judgment normal. Assessment/Plan Problem List Items Addressed This Visit ICD-10-CM Chronic obstructive pulmonary disease ([facility]) J44.9 Chronic respiratory failure (CMS/[facility]) J96.10 Neuropathy G62.9 Relevant Medications gabapentin (Neurontin) 100 mg capsule Other Visit Diagnoses Codes Hospital discharge follow-up - Primary Z09 Review of Systems Constitutional: Negative for fatigue. Respiratory: Positive for cough and shortness of breath. Negative for chest tightness, wheezing and stridor. On 2L [place] Cardiovascular: Positive for leg swelling. Negative for chest pain and palpitations. Gastrointestinal: Negative for abdominal pain, blood in stool, constipation, diarrhea, nausea and vomiting. Genitourinary: Negative for dysuria. Musculoskeletal: Negative for arthralgias and myalgias. Skin: Negative for color change. Neurological: Negative for dizziness, light-headedness and headaches. Hematological: Negative. Psychiatric/Behavioral: Negative. Family History Problem Relation Name Age of Onset Diabetes Mother Breast cancer Mother Heart disease Mother Hypertension Mother COPD Mother Asthma Mother Hypertension Father Other (cerebral vascular acciden) Father Follow up as scheduled in December as scheduled. Follow up with pulmonology tomorrow. Keep this appt. Will send note to [facility] for NIV and insurance request for more information. Explained to patient that he would need to discuss this with his hearing aid mechanic as well to have them submit a request and their OV note after he sees them tomorrow. He verbalized understanding. documented in this encounter [facility] Work Phone: 10-05-2023 Evaluation + Plan note Associated Problem(s): Hyperlipidemia Lipid panel today Was to be taking atorvastatin - but wanted to adjust his diet and then retest. [facility] Work Phone: 10-05-2023 Miscellaneous Notes Associated Problem(s): Hyperlipidemia Lipid panel today Was to be taking atorvastatin - but wanted to adjust his diet and then retest. Associated Problem(s): Chronic obstructive pulmonary disease (CMS/HCC) Managed by Dr. Amarilis henderson on oxygen Associated Problem(s): Neuropathy Will try gabapentin 100 mg nightly. Associated Problem(s): Chronic respiratory failure (CMS/HCC) On oxygen-stable Managed by Dr. Benavides Has had multiple admissions/ER visits for respiratory distress and COPD exacerbation. documented in this encounter [facility] Work Phone: 10-05-2023 Evaluation + Plan note Associated Problem(s): Chronic obstructive pulmonary disease (CMS/HCC) Managed by Dr. Hinklexiang henderson on oxygen [facility] Work Phone: 10-05-2023 Evaluation + Plan note Associated Problem(s): Neuropathy Will try gabapentin 100 mg nightly. [facility] Work Phone: 10-05-2023 Evaluation + Plan note Associated Problem(s): Chronic respiratory failure (CMS/HCC) On oxygen-stable Managed by Dr. Benavides Has had multiple admissions/ER visits for respiratory distress and COPD exacerbation. [facility] Work Phone: 10-02-2023 History of Presen t illness Narrative Follow up neuropathy in feet, painful at night Left leg calf painful and hard to touch Subjective Patient ID: North Ku is a 52 y.o. male who presents for Follow-up. KENJI Kat returns for follow up. Left lower leg pain/cramping: Feels tighter in his calf more than his right leg. Had a recent doppler to check for clots which was negative. Left leg is normal in color, no redness, discoloration or swelling noted. Calf muscle does feel tighter than right side. History of blood clots: only takes Eliquis sometimes. As he can't afford it, so he will take it when he gets samples from his specialist. Hypoxia: on chronic oxygen. He reports he was denied for lung transplant d/t his weight. He is asking for prednisone to keep on hand if he needs it so he won't have to go to the hospital if he starts to have an exacerbation. He currently sees Dr. Benavides pulmonology at [place]. Advised him he will need to get this from him as he manages his COPD. Review of Systems Constitutional: Negative for fatigue. HENT: Negative. Respiratory: Positive for shortness of breath (on exertion-on oxygen). Negative for chest tightness. Cardiovascular: Negative for chest pain, palpitations and leg swelling. Gastrointestinal: Negative for abdominal pain, blood in stool, constipation, diarrhea, nausea and vomiting. Genitourinary: Negative for dysuria. Musculoskeletal: Positive for myalgias (pain in left calf). Negative for arthralgias. Skin: Negative for color change. Allergic/Immunologic: Positive for environmental allergies. Neurological: Negative for dizziness, light-headedness and headaches. Psychiatric/Behavioral: Negative. Objective BP 130/80 Pulse 85 Ht 1.829 m (6') Wt (!) 151 kg (333 lb) BMI 45.16 kg/m Physical Exam Vitals and nursing note reviewed. Constitutional: General: He is not in acute distress. Appearance: Normal appearance. Interventions: Nasal cannula in place. Comments: Oxygen per [place] HENT: Head: Normocephalic and atraumatic. Cardiovascular: Rate and Rhythm: Normal rate and regular rhythm. Pulses: Normal pulses. Heart sounds: Normal heart sounds. Pulmonary: Effort: Pulmonary effort is normal. Breath sounds: Normal breath sounds. Abdominal: General: Bowel sounds are normal. Palpations: Abdomen is soft. Musculoskeletal: General: Normal range of motion. Cervical back: Normal range of motion. Left lower leg: No swelling or tenderness. No edema. Skin: General: Skin is warm and dry. Neurological: General: No focal deficit present. Mental Status: He is alert and oriented to person, place, and time. Psychiatric: Mood and Affect: Mood normal. Behavior: Behavior normal. Thought Content: Thought content normal. Judgment: Judgment normal. Assessment/Plan Problem List Items Addressed This Visit ICD-10-CM Chronic obstructive pulmonary disease (CMS/HCC) - Primary J44.[address] Benavides-xiang oquendo on oxygen Relevant Medications fluticasone (Flonase) 50 mcg/actuation nasal spray Chronic respiratory failure (CMS/HCC) J96.10 On oxygen-stable Managed by Dr. Benavides Has had multiple admissions/ER visits for respiratory distress and COPD exacerbation. Hyperlipidemia E78.5 Lipid panel today Was to be taking atorvastatin - but wanted to adjust his diet and then retest. History of pulmonary embolism Z86.711 Neuropathy G62.9 Will try gabapentin 100 mg nightly. Relevant Medications gabapentin (Neurontin) 100 mg capsule Other Visit Diagnoses Codes Need for influenza vaccination Z23 Relevant Orders Flu vaccine (IIV4) age 6 months and greater, preservative free (Completed) Follow up as scheduled in December. Will get labs today, and call him with results. documented in this encounter [facility] Work Phone: 08-15-2023 History of Presen t illness Narrative Hospital Follow up On 4l of O2 Patient: North Ku : 1970 PCP: WILBERT Hussein Program: No linked episodes North Ku is a 52 y.o. male presenting today for follow-up after being discharged from the hospital 7 days ago. The main problem requiring admission was Acute respiratory acidosis, COPD with exacerbation, acute encephalopathy. The discharge summary and/or Transitional Care Management documentation was reviewed. Medication reconciliation was performed as indicated via the Ankit as Reviewed timestamp. North Ku was contacted by Transitional Care Management services two days after his discharge. This encounter and supporting documentation was reviewed. The complexity of medical decision making for this patient's transitional care is moderate. Physical Exam Vitals and nursing note reviewed. Constitutional: General: He is not in acute distress. Appearance: Normal appearance. Interventions: Nasal cannula in place. Comments: On oxygen Cardiovascular: Rate and Rhythm: Normal rate and regular rhythm. Pulses: Normal pulses. Heart sounds: Normal heart sounds. Pulmonary: Effort: Pulmonary effort is normal. Breath sounds: Examination of the right-lower field reveals decreased breath sounds. Examination of the left-lower field reveals decreased breath sounds. Decreased breath sounds present. No wheezing, rhonchi or rales. Abdominal: General: Bowel sounds are normal. Palpations: Abdomen is soft. Musculoskeletal: Right lower leg: Edema present. Left lower leg: Edema present. Skin: General: Skin is warm and dry. Capillary Refill: Capillary refill takes less than 2 seconds. Neurological: General: No focal deficit present. Mental Status: He is alert and oriented to person, place, and time. Psychiatric: Mood and Affect: Mood normal. Behavior: Behavior normal. Thought Content: Thought content normal. Judgment: Judgment normal. Assessment/Plan Problem List Items Addressed This Visit Chronic obstructive pulmonary disease (CMS/HCC) Chronic respiratory failure ([facility]) Class 3 severe obesity due to excess calories with serious comorbidity and body mass index (BMI) of 40.0 to 44.9 in adult ([facility]) Other Visit Diagnoses Hospital discharge follow-up - Primary Review of Systems Constitutional: Negative for fatigue. Respiratory: Positive for shortness of breath (with exertion). Negative for chest tightness. Currently on 4L of O2 per [place] Cardiovascular: Positive for leg swelling (mild pitting edema bilateral lower ext). Negative for chest pain and palpitations. Gastrointestinal: Negative for abdominal pain, blood in stool, constipation, diarrhea, nausea and vomiting. Genitourinary: Negative for dysuria. Musculoskeletal: Negative for arthralgias and myalgias. Skin: Negative for color change. Neurological: Negative for dizziness, light-headedness and headaches. Psychiatric/Behavioral: Negative. Family History Problem Relation Name Age of Onset Diabetes Mother Breast cancer Mother Heart disease Mother Hypertension Mother COPD Mother Asthma Mother Hypertension Father Other (cerebral vascular acciden) Father He is doing well today. Denies increase in shortness of breath. His oxygen needs are 8L with ambulation and 3-4 L at rest per [place]. He reports he is waiting on more information regarding possible lung transplant from [facility]. [facility] has resumed services. Follow up in December as scheduled with me. He has follow up with Pulmonology coming up. documented in this encounter [facility] Work Phone: 07-06-2023 History of Presen t illness Narrative Images from the original note were not included. [facility] Cardiology Office Note DATE of SERVICE: 07/06/23 TIME of SERVICE: 11:39 AM Reason for Visit: Chief Complaint Patient presents with 6 Month Follow-up History ofPresent Illness: Edgard Ku is a 52 y.o. male who is known to Dr. Bojorquez. He has a history of chronic hypoxia, pulmonary hypertension, cor pulmonale from COPD. He is chronically oxygen dependent. He was last evaluated in the office with Dr. Bojorqeuz October 2022 in which Lasix was discontinued and changed to torsemide with improvement in his lower extremity swelling. He tells me November 2022 he was diagnosed with bilateral pulmonary embolisms. He was hospitalized and treated at [facility] in which low-dose aspirin was discontinued and he was started and continues on Eliquis 5 mg twice daily for oral anticoagulation. He is established with pulmonology and seen regularly through [facility]. He appears compensated today on exam. He had recent surveillance blood work June 26, 2023 documenting stable kidney function and electrolytes. I made no medication changes today. He remains very limited in his mobility, and utilizes a wheelchair. Past Medical History: Past Medical History: Diagnosis Date Allergic rhinitis Cellulitis abdoninal area COPD (chronic obstructive pulmonary disease) (HCC) Cor pulmonale (HCC) Diastolic heart failure (HCC) History of echocardiogram 12/03/2015 EF 50%, moderately dilated RV with moderate global RV systolic dysfunction, pulmonary HTN History of right and left heart catheterization 03/21/2012 Normal coronaries. Severe pulmonary HTN. EF 60% History of right heart catheterization 01/17/2016 Mild to moderate pulmonary HTN. Normal cardiac output / index. Continued treatment of COPD & LAYLA with inhalers & BiPAP advised Hypertension LAYLA (obstructive sleep apnea) Pulmonary hypertension (HCC) Secondary polycythemia Tachycardia Past Surgical History Past Surgical History: Procedure Laterality Date CARDIAC CATHETERIZATION HERNIA REPAIR TONSILLECTOMY (HISTORICAL) Family History Family History Problem Relation Name Age of Onset Arrhythmia Mother Other (Other) Mother cardiac stent Breast cancer Mother Hypertension Mother Hypertension Brother Social History Social History Tobacco Use Smoking status: Former Types: Cigarettes Quit date: 11/15/2017 Years since quittin.6 Smokeless tobacco: Former Quit date: 2015 Substance Use Topics Alcohol use: Yes Alcohol/week: 4.0 standard drinks of alcohol Types: 4 Shots of liquor per week Comment: every few months Drug use: No Allergies: Allergies Allergen Reactions Clarithromycin Hives Penicillins Swelling Medications: Current Outpatient Medications: albuterol 108 (90 Base) MCG/ACT inhaler, Inhale 2 puffs every 6 hours as needed., Disp: , Rfl: apixaban (Eliquis) 5 MG tablet, Take 5 mg by mouth 2 times daily., Disp: , Rfl: benzonatate (Tessalon) 100 MG capsule, Take 200 mg by mouth., Disp: , Rfl: budesonide-formoterol (Symbicort) 160-4.5 MCG/ACT inhaler, Inhale 2 puffs in the morning and 2 puffs before bedtime., Disp: , Rfl: buPROPion XL (Wellbutrin XL) 150 MG 24 hr tablet, Take 150 mg by mouth., Disp: , Rfl: cholecalciferol (D3-5) 5,000 Units tablet, Take by mouth every other day., Disp: , Rfl: cyanocobalamin (Vitamin B-12) 500 MCG tablet, Take 2 tablets by mouth daily., Disp: , Rfl: dextromethorphan-guaiFENesin (Mucinex DM) 30-600 MG 12 hr tablet, Take 1 tablet by mouth every 12 hours as needed., Disp: , Rfl: ipratropium-albuterol (Duo-Neb) 0.5-2.5 mg/3 mL nebulizer solution, Inhale 1 vial., Disp: , Rfl: losartan (Cozaar) 25 MG tablet, Take 25 mg by mouth daily., Disp: , Rfl: mepolizumab (Nucala) 100 mg/mL solution auto-injector, Inject under the skin., Disp: , Rfl: metoprolol tartrate (Lopressor) 50 MG tablet, Take 1 tablet by mouth in the morning and 1 tablet before bedtime., Disp: , Rfl: montelukast (Singulair) 10 MG tablet, Take 10 mg by mouth Nightly., Disp: , Rfl: sertraline (Zoloft) 100 MG tablet, Take 100 mg by mouth daily., Disp: , Rfl: spironolactone (Aldactone) 25 MG tablet, Take 1 tablet by mouth in the morning and 1 tablet before bedtime., Disp: , Rfl: therapeutic multivitamin-minerals (Theragran-M) tablet, Take 1 tablet by mouth daily., Disp: , Rfl: torsemide (Demadex) 20 MG tablet, Take 1 tablet (20 mg) by mouth daily., Disp: 90 tablet, Rfl: 3 Vitamin Mixture (VITAMIN E COMPLETE PO), Take by mouth., Disp: , Rfl: Review of Systems: Review of Systems Constitutional: Negative for activity change, chills, diaphoresis, fatigue and fever. No cardiac complaints HENT: Negative for nosebleeds and trouble swallowing. Eyes: Negative for discharge and visual disturbance. Respiratory: Negative for apnea, cough, chest tightness, shortness of breath and wheezing. On oxygen, denies worsening symptoms of SOB Cardiovascular: Negative for chest pain, palpitations and leg swelling. Denies chest pain or palpitations Gastrointestinal: Negative for abdominal distention, abdominal pain, blood in stool, diarrhea, nausea and vomiting. Endocrine: Negative for cold intolerance and heat intolerance. Genitourinary: Negative for hematuria. Musculoskeletal: Negative for gait problem and myalgias. Poor mobility, uses a wheelchair Skin: Negative for color change and rash. Neurological: Negative for dizziness, seizures, syncope, facial asymmetry, speech difficulty, weakness, light-headedness, numbness and headaches. Hematological: Does not bruise/bleed easily. Psychiatric/Behavioral: Negative for dysphoric mood. Physical Examination: Vitals: BP 124/70 (BP Location: Left arm, Patient Position: Sitting, BP Cuff Size: Large adult) Pulse 73 Resp 16 Ht 6' (1.829 m) Wt (!) 328 lb (149 kg) SpO2 93% Comment: 5 L BMI 44.48 kg/m Body mass index is 44.48 kg/m . Physical Exam Constitutional: Appearance: He is obese. HENT: Head: Normocephalic. Eyes: General: Right eye: No discharge. Left eye: No discharge. Neck: Comments: No JVD Cardiovascular: Rate and Rhythm: Normal rate and regular rhythm. Heart sounds: No murmur heard. Comments: Regular, heart tones are distant Pulmonary: Effort: Pulmonary effort is normal. Breath sounds: Normal breath sounds. No wheezing or rales. Comments: Diminished in the bases Abdominal: General: Bowel sounds are normal. There is no distension. Palpations: Abdomen is soft. Musculoskeletal: Cervical back: Neck supple. Right lower leg: No edema. Left lower leg: No edema. Comments: BLE have trace non pitting edema Skin: General: Skin is warm. Findings: No erythema or rash. Neurological: Mental Status: He is alert and oriented to person, place, and time. Psychiatric: Behavior: Behavior normal. Laboratory Tests: Lab Results Component Value Date GLUCOSE 79 12/09/2019 CALCIUM 9.3 12/09/2019 NA 137 12/09/2019 K 4.5 12/09/2019 CO2 31 (H) 12/09/2019 CL 96 (L) 12/09/2019 BUN 10 12/09/2019 CREATININE 0.71 12/09/2019 @LASTCMP@ No results found for: CHLPL, CHOL No results found for: TRIG No results found for: HDL No results found for: LDLCALC No results found for: VLDL No results found for: CHOLHDLRATIO Assessment and Plan: 1. Predominantly right sided heart failure, cor pulmonale-appears reasonably compensated. Weights have been stable. -Continue Demadex 20 mg daily -Surveillance blood work last drawn in June 26, 2023-document stable kidney function and electrolytes. 2. History of pulmonary hypertension-chronically oxygen dependent -Is followed regularly by pulmonology through [facility] as well 3. Staugghbrrdh-bsej-htusuykndq, continues on metoprolol tartrate 50 mg twice daily along with losartan 25 mg daily. 4. Bilateral pulmonary emboli November 2022-continues on Eliquis 5 mg twice daily for oral anticoagulation-prescribed through pulmonology at [facility]. 5. Follow-up-6 months and as needed. Renetta Corbett APRN/MARKET RISK MANAGER documented in this encounter [facility] 06-28-2023 Telephone encounter Note Patient scheduled with soumya 07/06/23. [facility] 06-28-2023 Miscellaneous Notes Patient scheduled with soumya 07/06/23. LMOVM for patient to call back and schedule overdue follow up. Switched to torsemide documented in this encounter [facility] 06-28-2023 Telephone encounter Note LMOVM for patient to call back and schedule overdue follow up. [facility] 06-27-2023 Telephone encounter Note Switched to torsemide [facility] 06-26-2023 Evaluation + Plan note Associated Problem(s): Chronic recurrent major depressive disorder (CMS/HCC) Wellbutrin 150 mg BID Sertraline 100 mg daily [facility] Work Phone: 06-26-2023 Miscellaneous Notes Associated Problem(s): Chronic recurrent major depressive disorder (CMS/HCC) Wellbutrin 150 mg BID Sertraline 100 mg daily Associated Problem(s): Pulmonary hypertension (CMS/HCC) Managed by Cardiology- Bear Gillis Associated Problem(s): Prediabetes A1c Advance Care Planning Note Discussion Date: 06/26/23 Discussion Participants: patient The patient wishes to discuss Advance Care Planning today and the following is a brief summary of our discussion. Patient has capacity to make their own medical decisions: Yes Health Care Agent/Surrogate Decision Maker documented in chart: Yes- Laura Mirza- significant other Documents on file and valid: Advance Directive/Living Will: No Health Care Power of Damage Prevention Coordinator: has a copy, not in our record Treatment Decisions Goals of Care: survival is prioritized, if goals for quality or survival can reasonably be achieved Time Statement: Total face to face time spent on advance care planning was 1 minutes with 1 minutes spent in counseling, including the explanation. WILBERT Hussein 06/26/2023 10:35 AM documented in this encounter [facility] Work Phone: 06-26-2023 Evaluation + Plan note Associated Problem(s): Pulmonary hypertension (CMS/HCC) Managed by Cardiology- Bear Gillis [facility] Work Phone: 06-26-2023 Evaluation + Plan note Associated Problem(s): Prediabetes A1c [facility] Work Phone: 06-26-2023 History of Presen t illness Narrative Subjective Reason for Visit: Edgard Ku is an 52 y.o. male here for a Medicare Wellness visit. Past Medical, Surgical, and Family History reviewed and updated in chart. Reviewed all medications by prescribing practitioner or clinical pharmacist (such as prescriptions, OTCs, herbal therapies and supplements) and documented in the medical record. KENJI Kat returns for hospital follow up, and [facility]. See TCM note. He has no concerns today. Recently discharged from [facility] on 06/13/23 and is at home with [facility]. Prediabetes: has been borderline. Unsure of last A1c check. LAYLA: uses Bipap, tolerates well. Foot fx: sees podiatry again on Sunday-may have boot off at next eval. History of : Has heart cath x3, cellulitis, left foot fx in April, Currently on 4L oxygen at home. 24% lung function. Pulmonology-Dr. Tay Benavides in . Cardiology-Bear Gillis Pickle Pumper- Dr. Hilton ? xiang Colon cancer screen: due, he is agreeable to Cologuard Prostate cancer screen: due, will get PSA today Patient Care Team: Chitra Scott APRN-MARKET RISK MANAGER as PCP - General (Family Medicine) Dread Milligan MD as PCP - [employer] PCP Elizabeth Wooten LPN as Steam Pressure Chamber Operator (Case Management) Review of Systems Constitutional: Negative for fatigue. Respiratory: Negative for chest tightness and shortness of breath. Cardiovascular: Negative for chest pain, palpitations and leg swelling. Gastrointestinal: Negative for abdominal pain, blood in stool, constipation, diarrhea, nausea and vomiting. Genitourinary: Negative for dysuria. Musculoskeletal: Negative for arthralgias and myalgias. Skin: Negative for color change. Neurological: Negative for dizziness, light-headedness and headaches. Psychiatric/Behavioral: Negative for dysphoric mood. The patient is nervous/anxious. Objective Vitals: BP 106/60 (BP Location: Left arm) Pulse 63 Ht 1.829 m (6') Wt 149 kg (329 lb) SpO2 93% BMI 44.62 kg/m Physical Exam Vitals and nursing note reviewed. Constitutional: General: He is not in acute distress. Appearance: Normal appearance. HENT: Head: Normocephalic and atraumatic. Cardiovascular: Rate and Rhythm: Normal rate and regular rhythm. Pulses: Normal pulses. Heart sounds: Normal heart sounds. Pulmonary: Effort: Pulmonary effort is normal. No respiratory distress. Breath sounds: Decreased breath sounds: bilateral lower. Comments: On 4L oxygen [place] Abdominal: General: Bowel sounds are normal. Palpations: Abdomen is soft. Musculoskeletal: General: Signs of injury (left foot fx in boot) present. Cervical back: Normal range of motion. Feet: Comments: Has a boot on left foot d/t recent foot fx Skin: General: Skin is warm and dry. Neurological: Mental Status: He is alert and oriented to person, place, and time. Psychiatric: Mood and Affect: Mood normal. Behavior: Behavior normal. Thought Content: Thought content normal. Judgment: Judgment normal. Assessment/Plan Problem List Items Addressed This Visit Chronic recurrent major depressive disorder ([facility]) Current Assessment & Plan Wellbutrin 150 mg BID Sertraline 100 mg daily Vitamin D deficiency Hyperlipidemia Relevant Orders Lipid Panel Comprehensive Metabolic Panel Hypogonadism in male Relevant Orders Testosterone, total and free Prediabetes Current Assessment & Plan A1c Relevant Orders Hemoglobin A1C Pulmonary hypertension ([facility]) Current Assessment & Plan Managed by Cardiology- Bear Gillis Class 3 severe obesity due to excess calories with serious comorbidity and body mass index (BMI) of 40.0 to 44.9 in adult ([facility]) Other Visit Diagnoses Encounter for Medicare annual wellness exam - Primary Vitamin D deficiency, unspecified Relevant Orders Vitamin D, Total Hospital discharge follow-up Screen for colon cancer Relevant Orders Cologuard colon cancer screening Screening for prostate cancer Relevant Orders Prostate Spec.Ag,Screen Screening for thyroid disorder Relevant Orders TSH with reflex to Free T4 if abnormal Follow up in 6 months. Patient: North Ku : 1970 PCP: WILBERT Hussein Program: No linked episodes North Ku is a 52 y.o. male presenting today for follow-up after being discharged from the hospital 13 days ago. The main problem requiring admission was acute respiratory failure with hypoxia, COPD with exacerbation. The discharge summary and/or Transitional Care Management documentation was reviewed. Medication reconciliation was performed as indicated via the Ankit as Reviewed timestamp. North Ku was contacted by Transitional Care Management services two days after his discharge. This encounter and supporting documentation was reviewed. The complexity of medical decision making for this patient's transitional care is moderate. Family History Problem Relation Name Age of Onset No Known Problems Mother No Known Problems Father Engagement Call Start Time: 1101 (06/14/2023 11:01 AM) Medications Medications reviewed with patient/caregiver?: Yes (06/14/2023 11:01 AM) Is the patient having any side effects they believe may be caused by any medication additions or changes?: No (06/14/2023 11:01 AM) Does the patient have all medications ordered at discharge?: Yes (06/14/2023 11:01 AM) Care Management Interventions: Provided patient education (06/14/2023 11:01 AM) Is the patient taking all medications as directed (includes completed medication regime)?: Yes (06/14/2023 11:01 AM) Care Management Interventions: Provided patient education (06/14/2023 11:01 AM) Medication Comments: Prednisone 10mg (06/14/2023 11:01 AM) Appointments Does the patient have a primary care provider?: Yes (06/14/2023 11:01 AM) Care Management Interventions: Verified appointment date/time/provider (06/14/2023 11:01 AM) Has the patient kept scheduled appointments due by today?: Yes (06/14/2023 11:01 AM) Care Management Interventions: Advised patient to keep appointment; Educated on importance of keeping appointment (06/14/2023 11:01 AM) Self Management What is the home health agency?: [facility] (06/14/2023 11:01 AM) Has home health visited the patient within 72 hours of discharge?: Call prior to 72 hours (06/14/2023 11:01 AM) Patient Teaching Does the patient have access to their discharge instructions?: Yes (06/14/2023 11:01 AM) Care Management Interventions: Reviewed instructions with patient (06/14/2023 11:01 AM) What is the patient's perception of their health status since discharge?: Same (06/14/2023 11:01 AM) Is the patient/caregiver able to teach back the hierarchy of who to call/visit for symptoms/problems? PCP, Specialist, Home Health nurse, Urgent Care, ED, 911: Yes (06/14/2023 11:01 AM) documented in this encounter [facility] Work Phone: 06-26-2023 Instructions WILBERT Hussein - 06/26/2023 9:00 AM EDT BMI was above normal measurement. Current weight: 149 kg (329 lb) Weight change since last visit (-) denotes wt loss -5 lbs Weight loss needed to achieve BMI 25: 145.1 Lbs Weight loss needed to achieve BMI 30: 108.3 Lbs Provided instructions on dietary changes Provided instructions on exercise Advised to Increase physical activity documented in this encounter [facility] Work Phone: 06-26-2023 Note Formatting of this n ote might be different from the original. Advance Care Planning Note Discussion Date: 06/26/23 Discussion Participants: patient The patient wishes to discuss Advance Care Planning today and the following is a brief summary of our discussion. Patient has capacity to make their own medical decisions: Yes Health Care Agent/Surrogate Decision Maker documented in chart: Yes- Laura Mirza- significant other Documents on file and valid: Advance Directive/Living Will: No Health Care Power of Damage Prevention Coordinator: has a copy, not in our record Treatment Decisions Goals of Care: survival is prioritized, if goals for quality or survival can reasonably be achieved Time Statement: Total face to face time spent on advance care planning was 1 minutes with 1 minutes spent in counseling, including the explanation. WILBERT Hussein 06/26/2023 10:35 AM [facility] Work Phone: 11-15-2022 Note Spoke to Medical Rec ords @ [facility]- she is going to send over the cardiology consult note, discharge summary, labs, CT, EKG, ER note and x-ray to us. [facility] documented in this encounter [facility] Work Phone: Evaluation note* Diagnosis Pulmonary hypertension (HCC)- Primary Other chronic pulmonary heart diseases Cor pulmonale (HCC) Unspecified chronic pulmonary heart disease [facility] follow-up- Primary Other follow-up examination Chronic obstructive pulmonary disease, unspecified COPD type (CMS/HCC) Chronic respiratory failure with hypoxia (CMS/HCC) Class 3 severe obesity due to excess calories with serious comorbidity and body mass index (BMI) of 40.0 to 44.9 in adult (CMS/HCC) documented in this encounter [facility] Work Phone: Evaluation note* Diagnosis Chronic obstructive pulmonary disease, unspecified COPD type (CMS/HCC)- Primary Chronic respiratory failure with hypoxia (CMS/HCC) Mixed hyperlipidemia Neuropathy Mononeuritis of unspecified site History of pulmonary embolism Personal history of venous thrombosis and embolism Need for influenza vaccination Need for prophylactic vaccination and inoculation against influenza documented in this encounter [facility] Work Phone: Evaluation note* Diagnosis Hospital discharge follow-up- Primary Other follow-up examination Chronic respiratory failure with hypoxia (CMS/HCC) Chronic obstructive pulmonary disease, unspecified COPD type (CMS/HCC) Neuropathy Mononeuritis of unspecified site documented in this encounter [facility] Work Phone: History of Present illness Narrative* The patient is being seen for the subsequent annual wellness visit. * Past Medical, Surgical and Family History: reviewed and updated in chart. * Medications and Supplements: Review of all medications by a prescribing practitioner or clinical pharmacist (such as prescriptions, OTCs, herbal therapies and supplements) documented in the medical record. * No, the patient is not using opioids. * Patient Self Assessment of Health Status: good. * Tobacco use: Non-User * Alcohol use: Non-User * Illicit drug use: Non-User * Current diet: well balanced diet and unhealthy diet. * Exercise Frequency: the patient does not exercise. * Depression/Suicide Screening: . * During the past 2 weeks, the patient has not felt down, depressed or hopeless. * During the past 2 weeks, the patient has not felt little interest or pleasure in doing things. * Hearing Impairment: none. * Cognitive Impairment: No cognitive impairment observed. * Bathing: performs independently. * Dressing: performs independently. * Walking: performs independently. * Managing Finances: performs independently. * Shopping: needs assistance. * Managing Medications: performs independently. * Housework / Basic Home Maintenance: needs assistance. * Falls Risk Screening:. EDGARD has fallen in the last 6 months. His fall resulted in the following injury: tibial plateau fracture. * Home safety risk factors: none. * Advance directives:. Patient has no living will. * Also sees cardiology and pulmonary in [facility] Work Phone: History of Present illness Narrative* Edgard presents for hospital followup. * He was hospitalized with acute on chronic respiratory failure, found to have bilateral pulmonary embolism, is on eliquis now . Per patient was told will need lifelong anticoagulation. * Has known chf, depression, BMI over 45, and pulmonary htn, stable, sees all specialists in [place] . * States is feeling better, no fevers, breathing getting back to baseline * Last seen in June for acute problem, regular routine followup and labs were recommended, looks like he had to cancel [facility] Work Phone: Summary Purpose Family History No Family History Records Found Mother Name Dates Details Family history of diabetes m ellitus(V18.0, Z83.3) Status:Active Family history of cardiac di sorder(V17.49, Z82.49) Status:Active Mother Name Dates Details Family history of diabetes m ellitus(V18.0, Z83.3) Status:Active Family history of cardiac di sorder(V17.49, Z82.49) Status:Active Mother Name Dates Details Family history of diabetes m ellitus(V18.0, Z83.3) Status:Active Family history of cardiac di sorder(V17.49, Z82.49) Status:Active Mother Name Dates Details Family history of diabetes m ellitus(V18.0, Z83.3) Status:Active Family history of cardiac di sorder(V17.49, Z82.49) Status:Active Mother Name Dates Details Family history of diabetes m ellitus(V18.0, Z83.3) Status:Active Family history of cardiac di sorder(V17.49, Z82.49) Status:Active Mother Name Dates Details Family history of diabetes m ellitus(V18.0, Z83.3) Status:Active Family history of cardiac di sorder(V17.49, Z82.49) Status:Active Unknown Family Member Name Dates Details Family history of diabetes m ellitus: Mother(V18.0, Z83.3) Status:Active Family history of cardiac di sorder: Mother(V17.49, Z82.49) Status:Active Unknown Family Member Name Dates Details Family history of diabetes m ellitus: Mother(V18.0, Z83.3) Status:Active Family history of cardiac di sorder: Mother(V17.49, Z82.49) Status:Active Unknown Family Member Name Dates Details Family history of cardiac di sorder: Mother(V17.49, Z82.49) Status:Active Family history of diabetes m ellitus: Mother(V18.0, Z83.3) Status:Active Unknown Family Member Name Dates Details Family history of diabetes m ellitus: Mother(V18.0, Z83.3) Status:Active Family history of cardiac di sorder: Mother(V17.49, Z82.49) Status:Active Unknown Family Member Name Dates Details Family history of diabetes m ellitus: Mother(V18.0, Z83.3) Status:Active Family history of cardiac di sorder: Mother(V17.49, Z82.49) Status:Active Unknown Family Member Name Dates Details Family history of diabetes m ellitus: Mother(V18.0, Z83.3) Status:Active Family history of cardiac di sorder: Mother(V17.49, Z82.49) Status:Active Unknown Family Member Name Dates Details Family history of cardiac di sorder: Mother(V17.49, Z82.49) Status:Active Family history of diabetes m ellitus: Mother(V18.0, Z83.3) Status:Active Unknown Family Member Name Dates Details Family history of diabetes m ellitus: Mother(V18.0, Z83.3) Status:Active Family history of cardiac di sorder: Mother(V17.49, Z82.49) Status:Active Unknown Family Member Name Dates Details Family history of diabetes m ellitus: Mother(V18.0, Z83.3) Status:Active Family history of cardiac di sorder: Mother(V17.49, Z82.49) Status:Active Unknown Family Member Name Dates Details Family history of diabetes m ellitus: Mother(V18.0, Z83.3) Status:Active Family history of cardiac di sorder: Mother(V17.49, Z82.49) Status:Active Unknown Family Member Name Dates Details Family history of diabetes m ellitus: Mother(V18.0, Z83.3) Status:Active Family history of cardiac di sorder: Mother(V17.49, Z82.49) Status:Active Unknown Family Member Name Dates Details Family history of diabetes m ellitus: Mother(V18.0, Z83.3) Status:Active Family history of cardiac di sorder: Mother(V17.49, Z82.49) Status:Active Unknown Family Member Name Dates Details Family history of diabetes m ellitus: Mother(V18.0, Z83.3) Status:Active Family history of cardiac di sorder: Mother(V17.49, Z82.49) Status:Active Unknown Family Member Name Dates Details Family history of diabetes m ellitus: Mother(V18.0, Z83.3) Status:Active Family history of cardiac di sorder: Mother(V17.49, Z82.49) Status:Active Advance Directives No Advanced Directives Records FoundNo Advanced Directives Records FoundNo Advanced Directives Records FoundNo Advanced Directives Records FoundNo Advanced Directives Records FoundNo Advanced Directives Records FoundNo Advanced Directives Records FoundNo Advanced Directives Records FoundNo Advanced Directives Records FoundNo Advanced Directives Records Found Chief Complaint Chief Complaint: EDGARD KU is here with a chief complaint of F/[facility] . Additional Source Comments (unrecognized sect ion and content) No Status Records FoundNo Status Records FoundNo Status Records FoundNo Status Records FoundNo Status Records FoundNo Status Records FoundNo Status Records FoundNo Status Records FoundNo Status Records FoundNo Status Records Found INFORMATION SOURCE (unrecogn ized section and content) DATE CREATED AUTHOR AUTHOR'S ORGANIZ ATION 01/14/2019 [facility] [employer] [facility] DATE CREATED AUTHOR AUTHOR'S ORGANIZ ATION 01/08/2020 [facility] DATE CREATED AUTHOR AUTHOR'S ORGANIZ ATION 12/25/2022 [facility] DATE CREATED AUTHOR AUTHOR'S ORGANIZ ATION 12/25/2022 [employer] DATE CREATED AUTHOR AUTHOR'S ORGANIZ ATION 01/24/2023 [facility] DATE CREATED AUTHOR AUTHOR'S ORGANIZ ATION 07/02/2023 [facility] DATE CREATED AUTHOR AUTHOR'S ORGANIZ ATION 07/07/[address] DATE CREATED AUTHOR AUTHOR'S ORGANIZ ATION 10/07/2023 [facility] DATE CREATED AUTHOR AUTHOR'S ORGANIZ ATION 10/25/2023 [facility] [employer] (unrecognized sec tion and content) Sales Assistant Displays Relationship Specialty Start Date End Date Dread Milligan [address] [place] [phone] PCP - General 12/16/15 Sales Assistant Displays Relationship Specialty Start Date End Date Dread Milligan [address] [place] [phone] PCP - General 12/16/15 Sales Assistant Displays Relationship Specialty Start Date End Date Dread Milligan MD [address] [place], [place] [id number] PCP - [employer] PCP 11/26/21 Chitra Scott APRN-MARKET RISK MANAGER [address] [facility] [address] [place], [place] [phone] PCP - General Family Medicine 06/13/23 Elizabeth Wooten LPN Care Roll Up Helper 06/14/23 Sales Assistant Displays Relationship Specialty Start Date End Date Dread Milligan [address] [place], [place] [phone] PCP - General 12/16/15 Sales Assistant Displays Relationship Specialty Start Date End Date Dread Milligan MD [address] [place] [address] PCP - [employer]age PCP 11/26/21 Chitra Scott, WAISTLINE JOINER-MARKET RISK MANAGER [address] [facility] [address] [place], [place] [phone] PCP - General Family Medicine 06/13/23 Elizabeth Wooten LPN Care Roll Up Helper 06/14/23 Tay Benavides MD [address] [place] [phone] Consulting Physician Pulmonary Disease 08/24/23 Sales Assistant Displays Relationship Specialty Start Date End Date Dread Milligan MD [address] [facility] [place] [address] PCP - [employer]age PCP 11/26/21 Chitra Scott, WAISTLINE JOINER-MARKET RISK MANAGER [address] [place] [address] PCP - General Family Medicine 06/13/23 Elizabeth Wooten LPN Care Roll Up Helper 06/14/23 Tay Benavides MD [address] [facility] [place] [phone] Consulting Physician Pulmonary Disease 08/24/23 Reason for Visit (unrecogniz ed section and content) Reason Comments 6 Month Follow-up Reason Comments Hospital Follow-up Reason Comments Follow-up FOR RECORDS PERTAINING TO PATIENTS WHO ARE OR HAVE BEEN ENROLLED IN A CHEMICAL DEPENDENCY/SUBSTANCEABUSE PROGRAM, SOME INFORMATION MAY BE OMITTED. This clinical summary was aggregated from multiple sources. Caution should be exercised in using it in the provision of clinical care. This summary normalizes information from multiple sources, and as a consequence, information in this document may materially change the coding, format and clinical context of patient data. In addition, data may be omitted in some cases. CLINICAL DECISIONS SHOULD BE BASED ON THE PRIMARY CLINICAL RECORDS. [employer] provides no warranty or guarantee of the accuracy or completeness of information in this document.
== END 2023-12-21 16:01 | disposition home health service (06) | DRG 500 ==
LOC: ED 09:12 → ACINP 11:01 → ED 14:33 → PCU 17:43
PROVIDERS: Anesthesiology; Family Medicine; Podiatrist Foot & Ankle Surgery; Admitting Provider Internal Medicine; Emergency Provider Emergency Medicine; PCP Nurse Practitioner Family; Visit Provider Internal Medicine
PROC: 0KDW0ZZ Extraction of Left Foot Muscle, Open Approach (ICD-10-PCS; principal; 2023-12-19 16:45)
DX: S92.515B Nondisplaced fracture of proximal phalanx of left lesser toe(s), initial encounter for open fracture (principal); G93.41 Metabolic encephalopathy; J96.21 Acute and chronic respiratory failure with hypoxia; J96.22 Acute and chronic respiratory failure with hypercapnia; J44.1 Chronic obstructive pulmonary disease with (acute) exacerbation; Z68.41 Body mass index [BMI] 40.0-44.9, adult; I50.32 Chronic diastolic (congestive) heart failure; S96.022A Laceration of muscle and tendon of long flexor muscle of toe at ankle and foot level, left foot, initial encounter; S95.1 Injury of plantar artery of foot; I11.0 Hypertensive heart disease with heart failure; E66.01 Morbid (severe) obesity due to excess calories; F32.A Depression, unspecified; F17.210 Nicotine dependence, cigarettes, uncomplicated; G47.33 Obstructive sleep apnea (adult) (pediatric); J30.2 Other seasonal allergic rhinitis; F41.9 Anxiety disorder, unspecified; W22.8XXA Striking against or struck by other objects, initial encounter; Z91.199 Patient's noncompliance with other medical treatment and regimen due to unspecified reason; Z99.81 Dependence on supplemental oxygen; Z79.51 Long term (current) use of inhaled steroids; Z79.899 Other long term (current) drug therapy; Z86.711 Personal history of pulmonary embolism
CPT/HCPCS: 36415; 36600; 71046; 73660; 80048; 82140; 82803; 85025; 85610; 85730; 87070; 87075; 87077; 87186; 87205; 93005; 94002; 94003; 94640; 94667; 94762; 97162; 97166; 97530; 97535; 97802; 99285; J7030; J7120; J2405

== ENCOUNTER 2024-04-27 16:05 | Inpatient (IN) | payer MEDICARE, SELFPAY ==
[2024-04-27] VITALS (8 sets, daily range): BP systolic 97–136; BP diastolic 80–86; PULSE 60–117; RESP 12–23; TEMP 36–36.6; O2SAT 95–100; BMI 46.0; BMI 43.4
--- NOTE | 2024-04-27 16:12 | EKG12_ITS ---
Test Reason : SOB Blood Pressure : / mmHG Vent. Rate : 073 BPM Atrial Rate : 073 BPM P-R Int : 156 ms QRS Dur : 132 ms QT Int : 416 ms P-R-T Axes : 039 076 040 degrees QTc Int : 458 ms Normal sinus rhythm Right bundle branch block Abnormal ECG BASELINE ARTIFACT Confirmed by Yobani Lomeli ([id number]), publishing editor JAY SANTORO ([id number]) on 04/28/2024 8:24:18 AM Referred By: Confirmed By:Yobani Lomeli
[2024-04-27] MEDS: Albuterol 2.5 MG/3 ML VIAL.NEB. 5 MG INHALATION (16:26)
--- NOTE | 2024-04-27 16:26 | EX.ED.DYSGE1 ---
HPI <CLAYTON Caballero - Last Filed: 04/27/24 17:33> History of Present Illness Chief Complaint: Shortness of Breath Narrative Narrative: Patient is a 53-year-old male with a chronic history of hypoxia, CO2 retaining, stage IV COPD, patient is on 4 to 5 L of nasal cannula oxygen daily, patient also has a NIV that he wears throughout the day when he naps. Patient was on vacation in [place], they left [place] last evening, arriving home at approximately 4 AM this morning. Patient did not wear the NIV, per the , the patient started having some muscle spasm, was acting slightly confused, was feeling more short of breath, and she is concerned that he is retaining CO2. Patient does have history of this where he needs to get into the hospital. Patient is supposed to be on Eliquis however states secondary to the cost he does not take it. He is on this for blood clots. Patient denies any fever chills or recent cough. PFSH <CLAYTON Caballero - Last Filed: 04/27/24 17:33> [facility] Medical History Anxiety and depression BiPAP (biphasic positive airway pressure) dependence Blood disorder Cardiology follow-up encounter Chronic hypoxemic respiratory failure Closed fracture dislocation of joint of left lower extremity Closed fracture of left tibial plateau Congestive heart failure COPD (chronic obstructive pulmonary disease) Former smoker History of echocardiogram History of edema History of pain when walking HTN (hypertension) Hypertension Incarcerated umbilical hernia Obesities, morbid Obesity hypoventilation syndrome On home oxygen therapy LAYLA (obstructive sleep apnea) Other specified injury of left quadriceps muscle, fascia and tendon, initial encounter Pulmonary embolism Seasonal allergies Severe persistent asthma Stage 4 very severe COPD by GOLD classification Tobacco dependence Uses wheelchair Home Medications ?Medication ?Instructions ?Recorded ?Last Taken ?Type spironolactone 25 mg tablet 25 mg PO BID FLUID RETENTION/BLOOD 12/02/15 12/17/23 History PRESSURE bupropion HCl 150 mg 24 hr tablet, 150 mg PO DAILY DEPRESSION 10/11/21 12/17/23 History extended release (Wellbutrin XL) cyanocobalamin (vitamin B-12) 500 500 mcg PO DAILY SUPPLEMENT 11/08/21 01/01/23 History mcg tablet sertraline 100 mg tablet 100 mg PO DAILY DEPRESSION 01/23/22 01/01/23 History montelukast 10 mg tablet 10 mg PO QPM COPD #30 tabs 06/30/22 12/17/23 Rx (Singulair) mepolizumab 100 mg/mL subcutaneous 300 mg subcut Q4W asthma 11/05/22 12/10/23 History auto-injector (Nucala) torsemide 20 mg tablet 20 mg PO BID FLUID RETENTION #60 11/08/22 12/17/23 Rx tabs furosemide 40 mg tablet 40 mg PO DAILY PRN FLUID RETENTION 01/01/23 12/31/22 History albuterol sulfate 90 mcg/actuation 2 puff inhalation Q4H PRN 05/23/23 12/17/23 Rx aerosol inhaler (Ventolin HFA) shortness of breath or wheezing #18 grams cetirizine 10 mg tablet 10 mg PO DAILY allergies #90 tabs 05/30/23 12/17/23 Rx metoprolol tartrate 50 mg tablet 50 mg PO BID BLOOD PRESSURE 06/10/23 Unknown History cholecalciferol (vitamin D3) 125 125 mcg PO QODAY SUPPLEMENT 08/05/23 12/17/23 History mcg (5,000 unit) disintegrating tablet budesonide-formoterol HFA 160 2 puff inhalation BID SHORTNESS OF 10/08/23 12/17/23 History mcg-4.5 mcg/actuation aerosol BREATH inhaler (Symbicort) gabapentin 100 mg capsule 100 mg PO QHS NERVE PAIN 10/24/23 12/17/23 History fluticasone propionate 50 2 spray intranasal DAILY PRN 12/18/23 Unknown History mcg/actuation nasal seasonal allergies spray,suspension albuterol sulfate 2.5 mg/3 mL 2.5 mg (3 mL) inhalation Q4H PRN 01/04/24 Unknown Rx (0.083 %) solution for nebulization shortness of breath or wheezing #360 mL losartan 25 mg tablet 25 mg PO DAILY blood pressure #30 01/25/24 Unknown Rx tabs ipratropium 0.5 mg-albuterol 3 mg 3 ml continuous nebulization Q6H 01/31/24 Unknown History (2.5 mg base)/3 mL nebulization PRN shortness of breath or wheezing soln rosuvastatin 5 mg tablet 5 mg PO DAILY 04/27/24 Unknown History rosuvastatin 5 mg tablet 5 mg PO DAILY 04/27/24 Unknown History Allergy/AdvReac Type Severity Reaction Status Date / Time clarithromycin (From Biaxin) Allergy Hives Verified 04/27/24 16:06 Penicillins Allergy Hives Verified 04/27/24 16:06 Family History Mother Diabetes Breast cancer Heart disease Hypertension COPD (chronic obstructive pulmonary disease) Asthma Father Hypertension CVA (cerebral vascular accident) Surgical History History of hernia repair (~08/2018) History of tonsillectomy History of tooth extraction Hx of cardiac cath Social History household members: spouse Smoking Status: Current some day smoker tobacco type: cigarettes how long ago did patient quit smoking: Patient admits to smoking 1 cigarette to 2 cigarettes weekly second hand exposure: Yes quit status: has quit before alcohol intake: never substance use type: does not use ROS <CLAYTON Caballero - Last Filed: 04/27/24 17:33> ROS ED ROS Narrative Constitutional: Negative for fever, chills, weight loss, weakness Eyes: Negative for vision loss, vision change, double vision ENT: Negative for any sore throat, ear pain, congestion Cardiovascular: Negative for any chest pain, tightness, palpitations Respiratory: Negative for any cough, sputum production, hemoptysis. Positive for dyspnea, dyspnea on exertion, orthopnea Gastrointestinal: Negative for any abdominal pain, nausea, vomiting, diarrhea, constipation, blood in stool, blood in vomit : Negative for any urinary frequency, dysuria, retention, blood in urine Muscle skeletal: Negative for any neck pain, back pain Neurological: Negative for any headache, syncope, dizziness. Positive for room and confusion Skin: Negative for any rashes, itching, abrasions, lacerations Psychiatric: Negative for any depression, anxiety, stress, suicidal ideation, homicidal ideation Hematologic: Negative for any excessive bruising, easy bleeding EXAM <CLAYTON Caballero - Last Filed: 04/27/24 17:33> Physical Exam Narrative Exam Narrative: Vital signs reviewed. Patient is alert oriented x 4, patient looks tired however he is acting appropriate. Per the he is not as quick to respond as usual. HEET: Head normocephalic atraumatic, TMs clear bilaterally. Posterior pharynx is clear, moist mucous membranes. Nares clear bilaterally. Neck: Supple with no lymphadenopathy or tenderness. No signs of meningismus. Cardiac: Regular rate and rhythm no murmurs gallops or rubs, equal peripheral pulses bilaterally. Respiratory: Patient has expiratory wheezes throughout pulmonary exam, exam is difficult secondary to body habitus.. No chest tenderness. Abdomen: Soft, nontender, nondistended. No abdominal bruit or pulsatile masses. No hepatosplenomegaly Extremities: No peripheral edema, no signs of gross trauma or deformity. Active full range of motion of all extremities. Neuro: Cranial nerves II through XII intact, no focal neurological deficits. Skin: Clean dry and intact with no rash, purpura, petechiae, vesicles or pustules. Backs/flank: No CVA tenderness, no midline spinal tenderness, no deformity. Psych: Normal mood and affect. No SI, HI or acute psychosis. Const Vital Signs: 04/27/24 16:06 04/27/24 16:28 04/27/24 16:28 Temperature 96.9 F L Temperature Source Temporal Pulse Rate 74 74 Respiratory Rate 18 18 Respiratory Effort Respiratory Depth Respiratory Pattern Normal Blood Pressure 133/86 H Blood Pressure Mean 101 Pulse Ox 100 96 Oxygen Delivery Method Nasal Cannula Nasal Cannula Oxygen Flow Rate (L/min) 4 4 Fraction of Inspired Oxygen (FIO2) 04/27/24 16:30 04/27/24 16:50 04/27/24 17:40 Temperature 96.8 F L Temperature Source Pulse Rate 117 H 60 Respiratory Rate 23 H 14 Respiratory Effort Short of Breath Respiratory Depth Normal Respiratory Pattern Normal Tachypnea Blood Pressure 97/83 H Blood Pressure Mean 87 Pulse Ox 95 97 Oxygen Delivery Method Nasal Cannula Oxygen Flow Rate (L/min) 4 Fraction of Inspired Oxygen (FIO2) 97 50 <Shaun Marti MD - Last Filed: 04/27/24 17:56> Physical Exam Const Vital Signs: 04/27/24 16:06 04/27/24 16:28 04/27/24 16:28 Temperature 96.9 F L Temperature Source Temporal Pulse Rate 74 74 Respiratory Rate 18 18 Respiratory Effort Respiratory Depth Respiratory Pattern Normal Blood Pressure 133/86 H Blood Pressure Mean 101 Pulse Ox 100 96 Oxygen Delivery Method Nasal Cannula Nasal Cannula Oxygen Flow Rate (L/min) 4 4 Fraction of Inspired Oxygen (FIO2) 04/27/24 16:30 04/27/24 16:50 04/27/24 17:40 Temperature 96.8 F L Temperature Source Pulse Rate 117 H 60 Respiratory Rate 23 H 14 Respiratory Effort Short of Breath Respiratory Depth Normal Respiratory Pattern Normal Tachypnea Blood Pressure 97/83 H Blood Pressure Mean 87 Pulse Ox 95 97 Oxygen Delivery Method Nasal Cannula Oxygen Flow Rate (L/min) 4 Fraction of Inspired Oxygen (FIO2) 97 50 [facility] <CLAYTON Caballero - Last Filed: 04/27/24 17:33> MDM Lab Data Labs: Laboratory Results - last 24 hr 04/27/24 16:25 WBC 12.7 H RBC 4.19 L Hgb 13.2 Hct 45.1 MCV 107.6 H MCH 31.5 MCHC 29.3 L RDW Std Deviation 50.8 H RDW Coeff of Valerie 12.7 Plt Count 193 MPV 11.3 Immature Gran % (Auto) 0.500 Neut % (Auto) 76.7 H Lymph % (Auto) 13.7 L [place] % (Auto) 8.6 Eos % (Auto) 0.1 Baso % (Auto) 0.4 Absolute Neuts (auto) 9.8 H Absolute Lymphs (auto) 1.74 Nucleated RBC % 0 D-Dimer Quant (PE/DVT) 0.31 Sodium 136 Potassium 4.4 Chloride 86 L Carbon Dioxide > 45.0 H* Anion Gap TNP BUN 18 Creatinine 0.71 Estim Creat Clear Calc 179.84 Est GFR (MDRD) Af Amer 148 Est GFR (MDRD) Non-Af 122 BUN/Creatinine Ratio 25.4 H Glucose 150 H Calcium 9.4 Troponin I High Sens 17 B-Natriuretic Peptide 96.4 ABG Data ABG results: ABG 04/27/24 16:35 Specimen Type ART Sample Site R Radial pH 7.25 L Bicarbonate Actual 60.6 H Total CO2 > 50 Base Excess > 30 H O2 Saturation 90 L O2 % 4.0 ABG pO2 78 Tal Test Positive O2 Delivery Device Cannula Vent Mode Not entered Crit Call To/Read Back Yes Blood Gas Notified Whom reodica Blood Gas Notified Time 16:37:21 Radiography Diagnostic Testing: Clinical Impression(s) from Imaging Studies Chest X-Ray 04/27/24 16:40 IMPRESSION: No acute findings in the chest. Electronically Signed: Sreekanth Jenkins MD at 16:57 EDT , Treatment and Re-Evaluation :: Differential diagnosis includes however is not limited to: Acute on chronic COPD with hypoxia, hypercapnia, community-acquired pneumonia, pulmonary embolus viral syndrome Patient on his 4 to 5 L is not hypoxic, patient is alert orient x 4. Patient presenting to the emergency department for confusion, concern for elevated CO2 which she has a history of. Is also concerning that the patient does not take his blood thinner secondary to the cost. Patient will receive a full cardiac, pulmonary workup. Patient will receive a D-dimer as well, breathing treatments as well as IV steroids will be initiated. VBG will be used to assess the CO2. Chest x-ray showed no acute cardiopulmonary process. Patient's laboratory values show slight leukocytosis with a white blood count 12.7, hemoglobin stable. Patient's D-dimer was negative at 0.31. Patient's chemistries show chloride of 86 with a carbon oxide greater than 45. Kidney function unremarkable. Troponin was 17 which is negative, BNP was negative. Patient's blood gas was grossly abnormal, patient's pH was 7.248 which is low, CO2 is critical high at 138.7, O2 is 78.4 which is low, bicarb is 60.6, secondary to this finding, patient was placed on BiPAP. He was given breathing treatment as well as IV steroids. Patient will need to be admitted to the hospital. <Shaun Marti MD - Last Filed: 04/27/24 17:56> [facility] Narrative Medical decision making narrative: Dr. Marti: I have personally performed a face to face assessment of the patient and have reviewed the GENEVIEVE Note. I performed a substantive portion of the visit including all aspects of the following. My [place] findings include: History is 53-year-old male past medical history of chronic respiratory failure with hypercapnia presents with drowsiness and decreased mental status similar to his previous episodes as he was not wearing his noninvasive ventilation for 18 hours because he was driving back from [place]. Exam is afebrile. Vital signs noted. Decreased mental status, drowsy, but awake able. Medical Decision Making: Concern is for hypercapnia. I have low suspicion for pulmonary embolism. EKG obtained and interpreted by myself independently as normal sinus rhythm at 66 bpm without ectopy or acute ST changes. No STEMI. This was on the second EKG that the respiratory therapist obtained per protocol because she thought she saw ST elevation on the monitor. Initial EKG interpreted by myself as well demonstrates normal sinus rhythm at 73 bpm without ectopy or acute ST changes. No STEMI. No change between first EKG and second EKG. I reviewed the laboratory work. He has slightly elevated white count of 12.7 which I think is nonspecific. Troponin is negative. At this point in time, the most significance is the ABG which shows a pCO2 of 138. He was placed on BiPAP. Patient discussed with the hospitalist for admission. Other additions or changes: [None] Lab Data Labs: Laboratory Results - last 24 hr 04/27/24 16:25 WBC 12.7 H RBC 4.19 L Hgb 13.2 Hct 45.1 MCV 107.6 H MCH 31.5 MCHC 29.3 L RDW Std Deviation 50.8 H RDW Coeff of Valerie 12.7 Plt Count 193 MPV 11.3 Immature Gran % (Auto) 0.500 Neut % (Auto) 76.7 H Lymph % (Auto) 13.7 L [place] % (Auto) 8.6 Eos % (Auto) 0.1 Baso % (Auto) 0.4 Absolute Neuts (auto) 9.8 H Absolute Lymphs (auto) 1.74 Nucleated RBC % 0 D-Dimer Quant (PE/DVT) 0.31 Sodium 136 Potassium 4.4 Chloride 86 L Carbon Dioxide > 45.0 H* Anion Gap TNP BUN 18 Creatinine 0.71 Estim Creat Clear Calc 179.84 Est GFR (MDRD) Af Amer 148 Est GFR (MDRD) Non-Af 122 BUN/Creatinine Ratio 25.4 H Glucose 150 H Calcium 9.4 Troponin I High Sens 17 B-Natriuretic Peptide 96.4 ABG Data ABG results: ABG 04/27/24 16:35 Specimen Type ART Sample Site R Radial pH 7.25 L Bicarbonate Actual 60.6 H Total CO2 > 50 Base Excess > 30 H O2 Saturation 90 L O2 % 4.0 ABG pO2 78 Tal Test Positive O2 Delivery Device Cannula Vent Mode Not entered Crit Call To/Read Back Yes Blood Gas Notified Whom pippa Blood Gas Notified Time 16:37:21 Radiography Diagnostic Testing: Clinical Impression(s) from Imaging Studies Chest X-Ray 04/27/24 16:40 IMPRESSION: No acute findings in the chest. Electronically Signed: Sreekanth Jenkins MD at 16:57 EDT Reading Location ID and State: [facility] / [place] , Service support , Management Discussion w/another healthcare provider: Hospitalist <Shaun Marti MD - Last Filed: 04/27/24 17:56> Critical Care Time Critical Care Time: Yes Critical care time (excluding procedures): 30-74 minutes (31 minutes), Discussing w/Patient &/or Family/Home Mission Worker, Discussing w/Consultants, Arranging Admission or Transfer and Performing Direct Patient Care at Bedside Discharge Plan Dx/Rx/DC Orders Clinical Impression: Acute alteration in mental status, Hypoxia, Acute and chronic respiratory failure with hypercapnia Disposition Disposition: Acute Care Hospital [facility]
[2024-04-27] MEDS: Ipratropium/Albuterol Sulfate 3 ML AMPUL.NEB INHALATION ×2 (16:27→20:38)
[2024-04-27 16:36] LABS: Absolute Lymphocyte Count 1.74 X10^3/uL (0.83-4.51); Absolute Neutrophil Count 9.8 X10^3/uL (2.0-7.7); Basophil# 0.05 X10^3/uL; Basophil% 0.4 % (0-1); Eosinophil# 0.01 X10^3/uL; Eosinophils% 0.1 % (0-5); Hematocrit 45.1 % (40-54); Hemoglobin 13.2 g/dL (13.0-16.5); Lymphocyte # 1.74 X10^3/ul (0.83-4.51); Lymphocyte % 13.7 % (19-41); Mean Corp Hgb Conc 29.3 g/dL (32-36); Mean Corpuscular Hgb 31.5 pg (27.0-32.0); Mean Corpuscular Volume 107.6 fL (80-94); Mean Platelet Vol. 11.3 fl (6.2-12.0); Monocyte# 1.09 X10^3/uL; Monocyte% 8.6 % (0-10); NRBC Flagged by Analyzer 0 % (0-5); Neutrophil # 9.77 X10^3/uL (2.7-7.7); Neutrophil % 76.7 % (47-70); Platelet Count 193 K/mm3 (150-450); RBC Distribution Width CV 12.7 % (11.6-14.6); RBC Distribution Width SD 50.8 fl (35.1-43.9); Red Blood Count 4.19 M/mm3 (4.6-6.2); White Blood Count 12.7 K/mm3 (4.4-11.0)
[2024-04-27 16:40] LABS: Allen Test Positive; Base Excess > 30 mmol/L (-2 to +2); Bicarbonate 60.6 mmol/L (22-26); Blood Gas Specimen Type ART; Mode Not entered; O2 Delivery Device Cannula; PO2 78 mmHG (75-100); SITE R Radial; SO2 90 % (95-99); Time Given 16:37:21; Total Carbon Dioxide > 50 mmol/L; pH 7.25 (7.35-7.45)
[2024-04-27] MEDS: MethylPREDNISolone 125 MG/2 ML Vial 60 MG IV (16:40)
--- NOTE | 2024-04-27 16:40 | RAD_ITS ---
EXAM: XR CHEST, 1 VIEW CLINICAL INDICATION: cough TECHNIQUE: Frontal view of the chest. COMPARISON: 12/18/2023 FINDINGS: LUNGS AND PLEURAL SPACES: Unremarkable. No consolidation or edema. No pneumothorax. No effusion. HEART: Enlarged heart. MEDIASTINUM: Central airways and mediastinal contour are unremarkable. BONES/JOINTS: Unremarkable. No acute fracture. SOFT TISSUES: Unremarkable. RAD/Chest 1 View (Portable) IMPRESSION: No acute findings in the chest. Electronically Signed: Sreekanth Jenkins MD at 16:57 EDT ,
[2024-04-27 16:49] LABS: D-Dimer Quantitative (DVT/PE) 0.31 FEU/ug/m (0.27-0.49)
[2024-04-27 16:58] LABS: BNP,B-Type NATRIURETIC PEPTIDE 96.4 pg/mL (0-100)
[2024-04-27 17:10] LABS: BUN 18 mg/dL (7-18); BUN/Creat Ratio 25.4 RATIO (10-20); Calcium,Total 9.4 mg/dL (8.5-10.1); Carbon Dioxide > 45.0 mmol/L (21.0-32.0); Chloride 86 mmol/L (98-107); Creatinine, Serum 0.71 mg/dL (0.70-1.30); EST Glomerular Filtration Rate 122 mL/min (>60); Est Glom Filt Rate - Afr Amer 148 mL/min (>60); Estimated Creatinine Clearance 179.84 ml/min; Glucose 150 mg/dL (74-106); Potassium 4.4 mmol/L (3.5-5.1); Sodium Level 136 mmol/L (136-145); Troponin-I HS 17 pg/mL (3.0-78.0)
--- NOTE | 2024-04-27 17:43 | PCM.HP.STD ---
HPI - General General Date of Admission: 04/27/24 Date of Service: 04/27/24 Chief Complaint: acute on chronic respiratory failure HPI Narrative HARJIT ALBERTS, is a 53 M with past medical history of COPD, former nicotine use, hypertension, obesity, LAYLA, congestive heart failure who presents to the ED with concerns regarding altered mentation and worsening shortness of breath. He [place] his were on vacation in [place] and [place] last [place] arriving home at approximately 4 AM. He is not able to wear his NIV during the travels and was getting slightly confused and more short of breath per the . At the time of presentation in the ED, respiratory rate 23 pulse 117, WBC 12.7, platelet count 183, hemoglobin 13.2, ABG showed pH of 7.2, bicarbonate of 60, pCO2 of 120, sodium was 136 in the ED was started on albuterol 5 mg, methylprednisone 60 mg once. Chest x-ray did not show any acute findings he was admitted previously on 12/18/2023 to 12/21/2023 for COPD exacerbation and for foot laceration at the time he had acute metabolic encephalopathy secondary to acute hypoxic and hypercapnic respiratory failure and was started on noninvasive ventilation, his symptoms improved and he went back to baseline. He was also treated for COPD exacerbation at the time with systemic steroids antibiotics and aerosol therapy. He is on 2 to 4 L of oxygen at home. [facility] Medical History Anxiety and depression BiPAP (biphasic positive airway pressure) dependence Blood disorder Cardiology follow-up encounter Chronic hypoxemic respiratory failure Closed fracture dislocation of joint of left lower extremity Closed fracture of left tibial plateau Congestive heart failure COPD (chronic obstructive pulmonary disease) Former smoker History of echocardiogram History of edema History of pain when walking HTN (hypertension) Hypertension Incarcerated umbilical hernia Obesities, morbid Obesity hypoventilation syndrome On home oxygen therapy LAYLA (obstructive sleep apnea) Other specified injury of left quadriceps muscle, fascia and tendon, initial encounter Pulmonary embolism Seasonal allergies Severe persistent asthma Stage 4 very severe COPD by GOLD classification Tobacco dependence Uses wheelchair Home Medications ?Medication ?Instructions ?Recorded ?Last Taken ?Type spironolactone 25 mg tablet 25 mg PO BID FLUID RETENTION/BLOOD 12/02/15 12/17/23 History PRESSURE bupropion HCl 150 mg 24 hr tablet, 150 mg PO DAILY DEPRESSION 10/11/21 12/17/23 History extended release (Wellbutrin XL) cyanocobalamin (vitamin B-12) 500 500 mcg PO DAILY SUPPLEMENT 11/08/21 01/01/23 History mcg tablet sertraline 100 mg tablet 100 mg PO DAILY DEPRESSION 01/23/22 01/01/23 History montelukast 10 mg tablet 10 mg PO QPM COPD #30 tabs 06/30/22 12/17/23 Rx (Singulair) mepolizumab 100 mg/mL subcutaneous 300 mg subcut Q4W asthma 11/05/22 12/10/23 History auto-injector (Nucala) torsemide 20 mg tablet 20 mg PO BID FLUID RETENTION #60 11/08/22 12/17/23 Rx tabs furosemide 40 mg tablet 40 mg PO DAILY PRN FLUID RETENTION 01/01/23 12/31/22 History albuterol sulfate 90 mcg/actuation 2 puff inhalation Q4H PRN 05/23/23 12/17/23 Rx aerosol inhaler (Ventolin HFA) shortness of breath or wheezing #18 grams cetirizine 10 mg tablet 10 mg PO DAILY allergies #90 tabs 05/30/23 12/17/23 Rx metoprolol tartrate 50 mg tablet 50 mg PO BID BLOOD PRESSURE 06/10/23 Unknown History cholecalciferol (vitamin D3) 125 125 mcg PO QODAY SUPPLEMENT 08/05/23 12/17/23 History mcg (5,000 unit) disintegrating tablet budesonide-formoterol HFA 160 2 puff inhalation BID SHORTNESS OF 10/08/23 12/17/23 History mcg-4.5 mcg/actuation aerosol BREATH inhaler (Symbicort) gabapentin 100 mg capsule 100 mg PO QHS NERVE PAIN 10/24/23 12/17/23 History fluticasone propionate 50 2 spray intranasal DAILY PRN 12/18/23 Unknown History mcg/actuation nasal seasonal allergies spray,suspension albuterol sulfate 2.5 mg/3 mL 2.5 mg (3 mL) inhalation Q4H PRN 01/04/24 Unknown Rx (0.083 %) solution for nebulization shortness of breath or wheezing #360 mL losartan 25 mg tablet 25 mg PO DAILY blood pressure #30 01/25/24 Unknown Rx tabs ipratropium 0.5 mg-albuterol 3 mg 3 ml continuous nebulization Q6H 01/31/24 Unknown History (2.5 mg base)/3 mL nebulization PRN shortness of breath or wheezing soln rosuvastatin 5 mg tablet 5 mg PO DAILY 04/27/24 Unknown History rosuvastatin 5 mg tablet 5 mg PO DAILY 04/27/24 Unknown History Allergy/AdvReac Type Severity Reaction Status Date / Time clarithromycin (From Biaxin) Allergy Hives Verified 04/27/24 16:06 Penicillins Allergy Hives Verified 04/27/24 16:06 Family History Mother Diabetes Breast cancer Heart disease Hypertension COPD (chronic obstructive pulmonary disease) Asthma Father Hypertension CVA (cerebral vascular accident) Surgical History History of hernia repair (~08/2018) History of tonsillectomy History of tooth extraction Hx of cardiac cath Social History household members: spouse Smoking Status: Current some day smoker tobacco type: cigarettes how long ago did patient quit smoking: Patient admits to smoking 1 cigarette to 2 cigarettes weekly second hand exposure: Yes quit status: has quit before alcohol intake: never substance use type: does not use ROS Review of Systems ROS Unobtainable: due to mental status Vital Signs Vital Signs Vital Signs: 04/27/24 16:06 04/27/24 16:28 04/27/24 16:28 Temperature 96.9 F L Temperature Source Temporal Pulse Rate 74 74 Respiratory Rate 18 18 Respiratory Effort Respiratory Depth Respiratory Pattern Normal Blood Pressure 133/86 H Blood Pressure Mean 101 Pulse Ox 100 96 Oxygen Delivery Method Nasal Cannula Nasal Cannula Oxygen Flow Rate (L/min) 4 4 Fraction of Inspired Oxygen (FIO2) 04/27/24 16:30 04/27/24 16:50 04/27/24 17:40 Temperature 96.8 F L Temperature Source Pulse Rate 117 H 60 Respiratory Rate 23 H 14 Respiratory Effort Short of Breath Respiratory Depth Normal Respiratory Pattern Normal Tachypnea Blood Pressure 97/83 H Blood Pressure Mean 87 Pulse Ox 95 97 Oxygen Delivery Method Nasal Cannula Oxygen Flow Rate (L/min) 4 Fraction of Inspired Oxygen (FIO2) 97 50 Weight Weight: 339 lb 8.19 oz Body Mass Index (BMI) 46.0 Physical Exam Const Constitutional Narrative: Confused, AO x 2, asterixis present Eyes PERRL Neck no lymphadenopathy Resp no use of accessory muscles Resp Narrative: Bilateral wheezes present Auscultation: wheezes Extremity normal to inspection Extremity Narrative: No swelling or pedal edema Neuro Neuro Narrative: asterixis present Sensorium / Orientation: awake and oriented to person Results Medical Records Data Attestation: I reviewed the patient's medical records Lab / Micro Data Attestation: I reviewed the patient's lab results. 04/27/24 16:25 04/27/24 16:25 Labs: Laboratory Results - last 24 hr 04/27/24 16:25: WBC 12.7 H, RBC 4.19 L, Hgb 13.2, Hct 45.1, MCV 107.6 H, MCH 31.5, MCHC 29.3 L, RDW Std Deviation 50.8 H, RDW Coeff of Valerie 12.7, Plt Count 193, MPV 11.3, Immature Gran % (Auto) 0.500, Neut % (Auto) 76.7 H, Lymph % (Auto) 13.7 L, [place] % (Auto) 8.6, Eos % (Auto) 0.1, Baso % (Auto) 0.4, Absolute Neuts (auto) 9.8 H, Absolute Lymphs (auto) 1.74, Nucleated RBC % 0, D-Dimer Quant (PE/DVT) 0.31, Sodium 136, Potassium 4.4, Chloride 86 L, Carbon Dioxide > 45.0 H*, Anion Gap TNP, BUN 18, Creatinine 0.71, Estim Creat Clear Calc 179.84, Est GFR (MDRD) Af Amer 148, Est GFR (MDRD) Non-Af 122, BUN/Creatinine Ratio 25.4 H, Glucose 150 H, Calcium 9.4, Troponin I High Sens 17, B-Natriuretic Peptide 96.4 ABG Data ABG results: ABG 04/27/24 16:35 Specimen Type ART Sample Site R Radial pH 7.25 L Bicarbonate Actual 60.6 H Total CO2 > 50 Base Excess > 30 H O2 Saturation 90 L O2 % 4.0 ABG pO2 78 Tal Test Positive O2 Delivery Device Cannula Vent Mode Not entered Crit Call To/Read Back Yes Blood Gas Notified Whom reodica Blood Gas Notified Time 16:37:21 Imaging Radiology Impression Chest X-Ray 04/27/24 16:40 IMPRESSION: No acute findings in the chest. Electronically Signed: Sreekanth Jenkins MD at 16:57 EDT , Assessment & Plan Assessment/Plan (1) Acute and chronic respiratory failure with hypercapnia: PLAN: Plan 53-year-old male with prior history of gold class IV COPD, obesity frequent admissions for exacerbation is being admitted for acute on chronic respiratory failure with CO2 narcosis. The likely reason for his exacerbation is not known but possibly lack of NIV during travel and his LAYLA #COPD exacerbation: Is patient with acute on chronic respiratory failure with severe CO2 narcosis -Continue BiPAP therapy -Repeat ABG in 3 hours to assess improvement -IV methylprednisone 40 mg 3 times daily -Albuterol sulfate, budesonide formoterol inhalation shortness of breath -Respiratory therapy -Admit to PCU for further monitoring #Heart failure suspected secondary to cor pulmonale: -Furosemide 40 mg -Echocardiogram #LAYLA: -Needs recalibration of his BiPAP -Sleep study as an outpatient #Peripheral neuropathy: Gabapentin 100 mg #Depression/anxiety -Patient is on Wellbutrin as well as Zoloft continued #Hypertension: Losartan 25 mg daily, metoprolol 50 mg twice daily #Dyslipidemia: Rosuvastatin 5 mg daily #DVT prophylaxis: He was prescribed Eliquis but could not afford the medication -Start him on prophylactic heparin for now 5000 units subcu twice daily, -D-dimer levels were normal at the time of admission Charges/Coding Visit Charges Inpatient E&M: 21774 Init Hosp L2
--- NOTE | 2024-04-27 19:36 | ECHOD_ITS ---
Reason For Study: DYSPNEA Procedure This was a 2D Doppler, Color Flow transthoracic echocardiogram. The study was technically difficult. Definity deferre due to off axis apical windows. Exam performed portable in patient room. Left Ventricle Normal LV size. Left ventricular systolic function is normal. The left ventricular ejection fraction is 55 %. No regional wall motion abnormalities noted. Right Ventricle Normal RV size. Normal systolic function. Pulmonic Valve The pulmonic valve is not well visualized. Great Vessels Normal aortic root. The pulmonary is not well visualized. Pericardium/Pleural No pericardial effusion. MMode/2D Measurements & Calculations Ao root diam: 2.9 cm LAV(MOD-bp): 57.7 ml LA A4 area: 21.7 cm2 LAV(MOD-bp) Indexed: 22.2 ml/m2 LAV(MOD-sp2): 43.9 ml LAV(MOD-sp4): 63.6 ml LA dimension(2D): 4.4 cm RA A4 area: 20.3 cm2 TAPSE: 2.5 cm Time Measurements MV dec time: 0.24 sec Doppler Measurements & Calculations MV E max ramón: 76.8 cm/sec Lat Peak E' Ramón: 8.9 cm/sec Med Peak E' Ramón: 8.6 cm/sec MV A max ramón: 61.9 cm/sec E/E' lat: 8.7 E/E' med: 8.9 MV E/A: 1.2 MV V2 max: 92.6 cm/sec Ao V2 max: 130.7 cm/sec MV max P.4 mmHg MV dec slope: 319.7 cm/sec2 Ao max P.8 mmHg MV V2 mean: 54.9 cm/sec Ao V2 mean: 88.8 cm/sec MV mean P.4 mmHg Ao mean P.6 mmHg MV V2 VTI: 23.2 cm Ao V2 VTI: 32.4 cm AV (velocity ratio): 0.87 LV V1 max: 126.8 cm/sec PA V2 max: 209.8 cm/sec LV V1 max P.4 mmHg PA V2 mean: 122.4 cm/sec LV V1 mean P.6 mmHg LV V1 mean: 70.8 cm/sec LV V1 VTI: 28.3 cm ECHO/Echo Complete Interpretation Summary Normal LV size. Left ventricular systolic function is normal. The left ventricular ejection fraction is 55 %. The study was technically limited. Ordering Physician: Hayden Santizo Referring Physician: MENDEZ GARCIA Performed By: Anjana Perez and Student
[2024-04-27 21:02] LABS: Allen Test Positive; Base Excess > 30 mmol/L (-2 to +2); Bicarbonate 59.1 mmol/L (22-26); Blood Gas Specimen Type ART; Comment Max PS 30 Min PS 15; Mode Not entered; O2 Delivery Device AVAPS; PEEP 14; PO2 54 mmHG (75-100); RR 12; SITE L Radial; SO2 80 % (95-99); Time Given 20:58:53; Total Carbon Dioxide > 50 mmol/L; pCO2 114.7 mmHg (35-45); pH 7.32 (7.35-7.45)
[2024-04-27] MEDS: Atorvastatin Calcium 10 MG Tablet PO (21:33)
[2024-04-27] MEDS: Gabapentin 100 MG Capsule PO (21:33)
[2024-04-27] MEDS: Heparin Injection (Vial) 5,000 UNIT/ML VIAL 5000 UNIT SC (21:33)
[2024-04-27] MEDS: Spironolactone 25 MG Tablet PO (21:33)
[2024-04-27] MEDS: Metoprolol Tartrate 50 MG Tablet PO (21:36)
[2024-04-28] VITALS (15 sets, daily range): BP systolic 102–143; BP diastolic 58–79; PULSE 50–88; RESP 12–20; TEMP 36.3–36.9; O2SAT 92–96
[2024-04-28] MEDS: Ipratropium/Albuterol Sulfate 3 ML AMPUL.NEB INHALATION ×5 (01:00→23:18)
[2024-04-28 05:43] LABS: Absolute Lymphocyte Count 0.69 X10^3/uL (0.83-4.51); Absolute Neutrophil Count 7.4 X10^3/uL (2.0-7.7); Basophil# 0.01 X10^3/uL; Basophil% 0.1 % (0-1); Hematocrit 42.3 % (40-54); Hemoglobin 12.4 g/dL (13.0-16.5); Lymphocyte # 0.69 X10^3/ul (0.83-4.51); Lymphocyte % 8.4 % (19-41); Mean Corp Hgb Conc 29.3 g/dL (32-36); Mean Corpuscular Hgb 31.2 pg (27.0-32.0); Mean Corpuscular Volume 106.5 fL (80-94); Mean Platelet Vol. 11.3 fl (6.2-12.0); Monocyte# 0.11 X10^3/uL; Monocyte% 1.3 % (0-10); NRBC Flagged by Analyzer 0 % (0-5); Neutrophil # 7.36 X10^3/uL (2.7-7.7); Neutrophil % 89.7 % (47-70); Platelet Count 166 K/mm3 (150-450); RBC Distribution Width CV 12.5 % (11.6-14.6); RBC Distribution Width SD 49.2 fl (35.1-43.9); Red Blood Count 3.97 M/mm3 (4.6-6.2); White Blood Count 8.2 K/mm3 (4.4-11.0)
[2024-04-28] MEDS: 0.9% Saline Lock 10 ML Syringe IV ×2 (05:54→13:58)
[2024-04-28] MEDS: Heparin Injection (Vial) 5,000 UNIT/ML VIAL 5000 UNIT SC ×3 (05:54→20:44)
[2024-04-28 05:56] LABS: International Normalized Ratio 0.9; Prothrombin Time (Protime)PT. 12.6 SECONDS (11.7-14.9)
[2024-04-28 06:22] LABS: ALB/GLOB Ratio 0.9 RATIO (0.9-2.4); AST(SGOT) 21 U/L (15-37); Alanine Aminotransfer ALT/SGPT 26 U/L (16-61); Albumin, Serum 3.3 g/dL (3.2-5.0); Alkaline Phosphatase 75 U/L (45-117); BUN 19 mg/dL (7-18); BUN/Creat Ratio 30.9 RATIO (10-20); Bilirubin, Direct 0.13 mg/dL (0.00-0.30); Calcium,Total 9.4 mg/dL (8.5-10.1); Carbon Dioxide > 45.0 mmol/L (21.0-32.0); Chloride 86 mmol/L (98-107); Creatinine, Serum 0.61 mg/dL (0.70-1.30); EST Glomerular Filtration Rate 145 mL/min (>60); Est Glom Filt Rate - Afr Amer 175 mL/min (>60); Estimated Creatinine Clearance 202.51 ml/min; Globulin 3.8 g/dL (2.2-4.2); Glucose 132 mg/dL (74-106); Magnesium 2.3 mg/dL (1.6-2.6); Phosphorus 3.1 mg/dL (2.5-4.9); Potassium 4.6 mmol/L (3.5-5.1); Protein, Total 7.1 g/dL (6.4-8.2); Sodium Level 137 mmol/L (136-145)
[2024-04-28] MEDS: Losartan Potassium 25 MG Tablet PO (08:50)
[2024-04-28] MEDS: buPROPion (XL) 150 MG TABLET.XL PO (08:50)
[2024-04-28] MEDS: Metoprolol Tartrate 50 MG Tablet PO ×2 (08:50→20:43)
[2024-04-28] MEDS: Sertraline 100 MG Tablet PO (08:50)
[2024-04-28] MEDS: Spironolactone 25 MG Tablet PO ×2 (08:53→20:45)
--- NOTE | 2024-04-28 09:32 | PCM.PN.HOSP ---
Subjective Subjective He wore his BiPAP most of the night, currently resting comfortably on 4 L nasal cannula. Denies chest pain Objective Data Objective Data Vital Signs: Vital Signs Temp Pulse Resp BP Pulse Ox O2 Del Method O2 Flow Rate 97.3 F L 75 17 127/58 H 96 Nasal Cannula 4 04/28/24 08:46 04/28/24 08:50 04/28/24 08:46 04/28/24 08:46 04/28/24 08:46 04/28/24 08:46 04/28/24 08:46 FiO2 35 04/28/24 03:55 Oxygen Flow Rate (L/min) 4 Oxygen Delivery Method Nasal Cannula Weight: 320 lb 1.779 oz Body Mass Index (BMI) 43.4 Intake & Output: Intake and Output for Last 24 Hours 04/27/24 04/28/24 04/29/24 03:59 03:59 03:59 Output Total 375 / 375 Balance -375 / -375 Lab / Micro Data 04/28/24 05:05 04/28/24 05:05 Labs: Laboratory Results - last 24 hr 04/27/24 16:25: WBC 12.7 H, RBC 4.19 L, Hgb 13.2, Hct 45.1, MCV 107.6 H, MCH 31.5, MCHC 29.3 L, RDW Std Deviation 50.8 H, RDW Coeff of Valerie 12.7, Plt Count 193, MPV 11.3, Immature Gran % (Auto) 0.500, Neut % (Auto) 76.7 H, Lymph % (Auto) 13.7 L, [place] % (Auto) 8.6, Eos % (Auto) 0.1, Baso % (Auto) 0.4, Absolute Neuts (auto) 9.8 H, Absolute Lymphs (auto) 1.74, Nucleated RBC % 0, D-Dimer Quant (PE/DVT) 0.31, Sodium 136, Potassium 4.4, Chloride 86 L, Carbon Dioxide > 45.0 H*, Anion Gap TNP, BUN 18, Creatinine 0.71, Estim Creat Clear Calc 179.84, Est GFR (MDRD) Af Amer 148, Est GFR (MDRD) Non-Af 122, BUN/Creatinine Ratio 25.4 H, Glucose 150 H, Calcium 9.4, Troponin I High Sens 17, B-Natriuretic Peptide 96.4 04/28/24 05:05: WBC 8.2, RBC 3.97 L, Hgb 12.4 L, Hct 42.3, MCV 106.5 H, MCH 31.2, MCHC 29.3 L, RDW Std Deviation 49.2 H, RDW Coeff of Valerie 12.5, Plt Count 166, MPV 11.3, Immature Gran % (Auto) 0.500, Neut % (Auto) 89.7 H, Lymph % (Auto) 8.4 L, [place] % (Auto) 1.3, Eos % (Auto) 0.0, Baso % (Auto) 0.1, Absolute Neuts (auto) 7.4, Absolute Lymphs (auto) 0.69 L, Nucleated RBC % 0, PT 12.6, INR 0.9, Sodium 137, Potassium 4.6, Chloride 86 L, Carbon Dioxide > 45.0 H*, Anion Gap TNP, BUN 19 H, Creatinine 0.61 L, Estim Creat Clear Calc 202.51, Est GFR (MDRD) Af Amer 175, Est GFR (MDRD) Non-Af 145, BUN/Creatinine Ratio 30.9 H, Glucose 132 H, Calcium 9.4, Phosphorus 3.1, Magnesium 2.3, Total Bilirubin 0.30, Direct Bilirubin 0.13, AST 21, ALT 26, Alkaline Phosphatase 75, Total Protein 7.1, Albumin 3.3, Globulin 3.8, Albumin/Globulin Ratio 0.9, TSH 0.60 ABG Data ABG results: ABG 04/27/24 04/27/24 16:35 20:56 Specimen Type ART ART Sample Site R Radial L Radial pH 7.25 L 7.32 L Bicarbonate Actual 60.6 H 59.1 H Total CO2 > 50 > 50 Base Excess > 30 H > 30 H O2 Saturation 90 L 80 L O2 % 4.0 35.0 ABG pCO2 114.7 H* ABG pO2 78 54 L Tal Test Positive Positive Respiration Rate 12 O2 Delivery Device Cannula AVAPS Vent Mode Not entered Not entered Tidal Volume 500.0 POC PEEP 14 Crit Call To/Read Back Yes Yes Blood Gas Notified Whom pippa Chaidez White Blood Gas Notified Time 16:37:21 20:58:53 Clinical Comments Max PS 30 Min PS 15 Radiography Diagnostic Testing: Radiology Impression Chest X-Ray 04/27/24 16:40 IMPRESSION: No acute findings in the chest. Electronically Signed: Sreekanth Jenkins MD at 16:57 EDT , Physical Exam Narrative General: Drowsy but awakens easily, Cooperative, No apparent distress HEENT: Atraumatic, PERRLA, EOMI, Normocephalic Oral: Moist Mucosa Neck: Supple, No JVD Lungs: Diminished, poor air movement, No rhonchi, No wheeze, No rales Cardiovascular: Regular rate, Regular Rhythm, Normal S1, Normal S2, No murmurs Abdomen: Soft, Non Tender, Non-Distended, No Hepato-splenomegaly Extremities: No edema, Capillary Refill Less than 3 Seconds Skin: No rashes, No breakdown Musculoskeletal: No Tenderness to Palpation of Joints or Extremities Neurological: No focal neurological deficits, Motor Exam 5/5 strength throughout, Sensory exam intact to light touch and pain Psych/Mental Status: Flat Assessment & Plan Assessment/Plan (1) Acute and chronic respiratory failure with hypercapnia: PLAN: Plan 1. Acute on chronic hypercapnic respiratory failure secondary to COPD exacerbation ? Continue with BiPAP ? Continue with inhalers ? Continue with steroids ? pCO2 on ABG was greater than 114, continue with BiPAP while asleep 2. Chronic diastolic CHF/essential HTN/HLD ? Will obtain an echo as his most recent echo was from 01/30/2023 with an EF of 65% with a mildly dilated right ventricle ? Continue with blood pressure medications ? We will monitor make adjustments as necessary ? Continue with statin 3. Anxiety/depression ? Stable ? Continue with his home medications 4. History of PE ? This was in 2021, he was taken off of Eliquis due to cost ? D-dimer was checked on admission and it was normal DVT: Heparin Charges/Coding Visit Charges Inpatient E&M: 58566 Subs Hosp L2
--- NOTE | 2024-04-28 10:10 | EKG12_ITS ---
Test Reason : REPEAT Blood Pressure : / mmHG Vent. Rate : 079 BPM Atrial Rate : 079 BPM P-R Int : 134 ms QRS Dur : 138 ms QT Int : 400 ms P-R-T Axes : 059 074 029 degrees QTc Int : 458 ms Normal sinus rhythm Right bundle branch block Abnormal ECG When compared with ECG of 27-APR-2024 17:01, No significant change was found Confirmed by INES STEVENS, ADRY ([id number]), acquisitions editor SHANTI FINE ([id number]) on 04/29/2024 6:08:40 AM Referred By: JOSE R Confirmed By:ADRY CHACON MD
--- NOTE | 2024-04-28 10:33 | CASEMGMT ---
Addendum entered by Carlotta Fontenot 04/28/24 13:15: [facility] returns call and state that they can accept the pt for SN. Will follow for SOC date. Original Note: FINA BLAKELY Assessment Face to Face with patient for initial transition planning/care coordination assessment. FINA BLAKELY introduced self and role at [facility], pt voices understanding. Pt is A&Ox4 and is resting comfortably in bed and is calm. Care providers, pharmacy, and demographics verified. Admitting dx: COPD Exacerbation LACE Strata: 2 PCP: Chitra Scott Specialists: Dr. Bojorquez (Cardio in [place]). [facility]acy: [facility] Insurance: [employer] Prescription Benefit: Yes LNOK: Daniele Ku (Son), Laura Mirza (SO) Living Arrangements: Pt lives with his SO in a mobile home with around 5 steps to enter. ADLs/IADLs: States ind at [facility] Transportation: Self, SO. Pt states that it is easy for him to drive but ambulating longer distance can be taxing in regard to his oxygen requirements. DME: O2 through [facility]. TC to [facility] at this time. [facility] states that the pt current Rx states 4L Continuous and 6L HS bleed through PAP. Pt reports that he has portable tanks, concentrator, pulse Ox, and BiPAP a home. Pt states that he has been using NIV @ [facility] lately and states that this has helped him. Pt also reports having the following DME: cane, FWW, W/C, BSC, and Nebulizer. HHC/SNF: States SNF history but did not want to elaborate. History with [facility]. Pt is active with [facility]. Email sent to Palliative team to notify them of pt admission. Pt?s goal: Home Plan: Possible home with HHC and continuation of Palliative care. Home with Oxygen. 6-Click is 18. There currently is no order for PT/OT. Pt states that OP therapy would be too difficult to navigate and states that he would like [facility] again. Pt denies wanting to see a list of local in-network [facility] agencies. TC to [facility] and referral made for SN. Awaiting return response. 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 CM to follow for safe DC from [facility]. Yoon Fontenot RN, CM
[2024-04-28] MEDS: Gabapentin 100 MG Capsule PO (20:43)
[2024-04-28] MEDS: guaiFENesin 1,200 MG Tablet 1200 MG PO (20:44)
[2024-04-28] MEDS: Atorvastatin Calcium 10 MG Tablet PO (20:44)
[2024-04-29] VITALS (12 sets, daily range): BP systolic 101–148; BP diastolic 59–88; PULSE 60–82; RESP 12–22; TEMP 36.2–36.7; O2SAT 93–95
[2024-04-29] MEDS: Ipratropium/Albuterol Sulfate 3 ML AMPUL.NEB INHALATION ×3 (03:20→11:06)
[2024-04-29] MEDS: guaiFENesin 1,200 MG Tablet 1200 MG PO (06:13)
[2024-04-29] MEDS: Heparin Injection (Vial) 5,000 UNIT/ML VIAL 5000 UNIT SC ×2 (06:13→13:58)
[2024-04-29 06:42] LABS: Absolute Neutrophil Count 12.5 X10^3/uL (2.0-7.7); Basophil# 0.02 X10^3/uL; Basophil% 0.1 % (0-1); Hematocrit 44.5 % (40-54); Lymphocyte % 5.7 % (19-41); Mean Corp Hgb Conc 29.2 g/dL (32-36); Mean Corpuscular Hgb 31.1 pg (27.0-32.0); Mean Corpuscular Volume 106.5 fL (80-94); Mean Platelet Vol. 11.7 fl (6.2-12.0); Monocyte# 0.51 X10^3/uL; Monocyte% 3.7 % (0-10); NRBC Flagged by Analyzer 0 % (0-5); Neutrophil # 12.52 X10^3/uL (2.7-7.7); Neutrophil % 89.6 % (47-70); Platelet Count 212 K/mm3 (150-450); RBC Distribution Width CV 12.2 % (11.6-14.6); Red Blood Count 4.18 M/mm3 (4.6-6.2)
[2024-04-29 07:04] LABS: pCO2 138.7 mmHg (35-45)
[2024-04-29 07:40] LABS: BUN 24 mg/dL (7-18); BUN/Creat Ratio 29.6 RATIO (10-20); Calcium,Total 9.8 mg/dL (8.5-10.1); Carbon Dioxide > 45.0 mmol/L (21.0-32.0); Chloride 88 mmol/L (98-107); Creatinine, Serum 0.81 mg/dL (0.70-1.30); EST Glomerular Filtration Rate 105 mL/min (>60); Est Glom Filt Rate - Afr Amer 127 mL/min (>60); Estimated Creatinine Clearance 152.51 ml/min; Glucose 187 mg/dL (74-106); Sodium Level 136 mmol/L (136-145)
[2024-04-29] MEDS: Metoprolol Tartrate 50 MG Tablet PO (09:18)
[2024-04-29] MEDS: Losartan Potassium 25 MG Tablet PO (09:18)
[2024-04-29] MEDS: Spironolactone 25 MG Tablet PO (09:18)
[2024-04-29] MEDS: buPROPion (XL) 150 MG TABLET.XL PO (09:19)
[2024-04-29] MEDS: Sertraline 100 MG Tablet PO (09:20)
--- NOTE | 2024-04-29 09:58 | PCM.PN.HOSP ---
Subjective Subjective Doing well, no issues overnight. Resting comfortably on his CPAP Objective Data Objective Data Vital Signs: Vital Signs Temp Pulse Resp BP Pulse Ox O2 Del Method O2 Flow Rate 98.1 F 67 18 106/59 L 94 CPAP 5 04/29/24 09:10 04/29/24 09:18 04/29/24 09:10 04/29/24 09:10 04/29/24 09:10 04/29/24 09:10 04/29/24 07:01 FiO2 35 04/29/24 07:08 Oxygen Flow Rate (L/min) 5 Oxygen Delivery Method CPAP Weight: 320 lb 1.779 oz Body Mass Index (BMI) 43.4 Intake & Output: Intake and Output for Last 24 Hours 04/28/24 04/29/24 04/30/24 03:59 03:59 03:59 Intake Total 240 / 240 Output Total 375 / 375 1450 / 1450 1150 / 1150 Balance -375 / -375 -1210 / -1210 -1150 / -1150 Lab / Micro Data 04/29/24 05:26 04/29/24 05:26 Labs: Laboratory Results - last 24 hr 04/29/24 05:26: WBC 14.0 H, RBC 4.18 L, Hgb 13.0, Hct 44.5, MCV 106.5 H, MCH 31.1, MCHC 29.2 L, RDW Std Deviation 48.0 H, RDW Coeff of Valerie 12.2, Plt Count 212, MPV 11.7, Immature Gran % (Auto) 0.900, Neut % (Auto) 89.6 H, Lymph % (Auto) 5.7 L, [place] % (Auto) 3.7, Eos % (Auto) 0.0, Baso % (Auto) 0.1, Absolute Neuts (auto) 12.5 H, Absolute Lymphs (auto) 0.80 L, Nucleated RBC % 0, Sodium 136, Potassium 4.0, Chloride 88 L, Carbon Dioxide > 45.0 H*, Anion Gap TNP, BUN 24 H, Creatinine 0.81, Estim Creat Clear Calc 152.51, Est GFR (MDRD) Af Amer 127, Est GFR (MDRD) Non-Af 105, BUN/Creatinine Ratio 29.6 H, Glucose 187 H, Calcium 9.8 ABG Data ABG results: ABG 04/27/24 16:35 ABG pCO2 138.7 H* Radiography Diagnostic Testing: Radiology Impression Echocardiogram 04/27/24 19:36 Interpretation Summary Normal LV size. Left ventricular systolic function is normal. The left ventricular ejection fraction is 55 %. The study was technically limited. Ordering Physician: Hayden Santizo Referring Physician: MENDEZ GARCIA Performed By: Anjana Perez and Student Physical Exam Narrative General: Drowsy but awakens easily, Cooperative, No apparent distress HEENT: Atraumatic, PERRLA, EOMI, Normocephalic Oral: Moist Mucosa Neck: Supple, No JVD Lungs: Diminished, poor air movement, No rhonchi, No wheeze, No rales Cardiovascular: Regular rate, Regular Rhythm, Normal S1, Normal S2, No murmurs Abdomen: Soft, Non Tender, Non-Distended, No Hepato-splenomegaly Extremities: No edema, Capillary Refill Less than 3 Seconds Skin: No rashes, No breakdown Musculoskeletal: No Tenderness to Palpation of Joints or Extremities Neurological: No focal neurological deficits, Motor Exam 5/5 strength throughout, Sensory exam intact to light touch and pain Psych/Mental Status: Flat Assessment & Plan Assessment/Plan (1) Acute and chronic respiratory failure with hypercapnia: PLAN: Plan 1. Acute on chronic hypercapnic respiratory failure secondary to COPD exacerbation ? Continue with BiPAP ? Continue with inhalers ? Continue with steroids ? pCO2 on ABG was greater than 114, continue with BiPAP while asleep 2. Chronic diastolic CHF/essential HTN/HLD ? Echo with an EF of 55% ? Continue with blood pressure medications ? We will monitor make adjustments as necessary ? Continue with statin 3. Anxiety/depression ? Stable ? Continue with his home medications 4. History of PE ? This was in 2021, he was taken off of Eliquis due to cost ? D-dimer was checked on admission and it was normal DVT: Heparin Charges/Coding Visit Charges Inpatient E&M: 05323 Subs Hosp L2
--- NOTE | 2024-04-29 13:53 | DCINST_ITS ---
Discharge Instructions Diet Discharge Diet: Low fat / Low cholesterol and 6 Cup Fluid Restriction Activity Discharge Activity: Return to Normal Activity Dressing / Incision Call your doctor if you observe: Fever of 101 or Higher, Shortness of breath, Dizziness, Fainting spells, Swelling in the ankles, Chest pain and Increased palpitations (irregular heartbeat) Follow Up Care Test Results: Test results from this visit will be discussed in further detail at your follow- up appointment, if applicable. Discharge Plan Admission Admit Date/Time: 04/27/24 18:21 Attending Provider: Jer Graham Primary Care Provider: Chitra Scott Consulting Providers: Hayden Santizo Discharge Orders/Prescriptions Prescriptions: New prednisone 20 mg tablet 40 mg PO DAILY Qty: 14 0RF Continued sertraline 100 mg tablet 100 mg PO DAILY Patient Comments: pt states he hasnt taken in about 6 months ipratropium-albuterol 0.5 mg-3 mg(2.5 mg base)/3 mL solution for nebulization 3 ml continuous nebulization Q6H PRN (Reason: shortness of breath or wheezing) spironolactone 25 MG tablet 25 mg PO BID bupropion HCl [Wellbutrin XL] 150 mg Tablet Extended Release 24 Hr 150 mg PO DAILY Patient Comments: pt states he takes twice daily cyanocobalamin (vitamin B-12) 500 MCG tablet 500 mcg PO DAILY Nucala 100 mg/mL auto-injector 300 mg subcut Q4W Patient Comments: Takes around the 14th of each month. Rx Instructions: administer as three 100 mg injections at separate sites torsemide 20 mg tablet 20 mg PO BID Qty: 60 2RF furosemide 40 mg tablet 40 mg PO DAILY PRN (Reason: FLUID RETENTION) metoprolol tartrate 50 mg tablet 50 mg PO BID budesonide-formoterol [Symbicort] 160-4.5 mcg/actuation HFA aerosol inhaler 2 puff inhalation BID Patient Comments: pt states they normally take 2 puffs at night, but 2 in morning as needed gabapentin 100 mg capsule 100 mg PO QHS fluticasone propionate 50 mcg/actuation spray,suspension 2 spray INTRANASAL DAILY PRN (Reason: seasonal allergies) cholecalciferol (vitamin D3) 125 mcg (5,000 unit) tablet,disintegrating 125 mcg PO QODAY Patient Comments: pt states he takes every morning rosuvastatin 5 mg tablet 5 mg PO DAILY rosuvastatin 5 mg tablet 5 mg PO DAILY montelukast [Singulair] 10 mg tablet 10 mg PO QPM Qty: 30 5RF albuterol sulfate [Ventolin HFA] 90 mcg/actuation HFA aerosol inhaler 2 puff INHALATION Q4H PRN (Reason: shortness of breath or wheezing) Qty: 18 6RF cetirizine 10 mg tablet 10 mg PO DAILY Qty: 90 3RF albuterol sulfate 2.5 mg /3 mL (0.083 %) solution for nebulization 2.5 mg INHALATION Q4H PRN (Reason: shortness of breath or wheezing) Qty: 360 6RF losartan 25 mg tablet 25 mg PO DAILY Qty: 30 6RF Patient Comments: pt states they take in the am Referrals / Follow Up: Chitra Scott, CNC MACHINE OPERATOR-C [Primary Care Provider] - Within 1 Week Disposition Disposition (needs filled in before D/C Order can be placed): Home, Self Care
[2024-04-29] MEDS: 0.9% Saline Lock 10 ML Syringe IV (14:04)
--- NOTE | 2024-04-29 14:05 | DS.PCM_ITS ---
Providers Date of Admission: 04/27/24 Primary Care Physician: CLAYTON Monroy Reason For Visit: COPD EXACERBATION Diagnosis Discharge Diagnosis (1) Acute and chronic respiratory failure with hypercapnia: Status: Chronic Code(s): J96.22 - Acute and chronic respiratory failure with hypercapnia Medications at Discharge Home Medications spironolactone 25 mg tablet 25 mg PO BID FLUID RETENTION/BLOOD PRESSURE 12/02/15 bupropion HCl 150 mg 24 hr tablet, extended release (Wellbutrin XL) 150 mg PO DAILY DEPRESSION 10/11/21 cyanocobalamin (vitamin B-12) 500 mcg tablet 500 mcg PO DAILY SUPPLEMENT 11/08/21 sertraline 100 mg tablet 100 mg PO DAILY DEPRESSION 01/23/22 montelukast 10 mg tablet (Singulair) 10 mg PO QPM COPD #30 tabs 06/30/22 mepolizumab 100 mg/mL subcutaneous auto-injector (Nucala) 300 mg subcut Q4W asthma 11/05/22 torsemide 20 mg tablet 20 mg PO BID FLUID RETENTION #60 tabs 11/08/22 furosemide 40 mg tablet 40 mg PO DAILY PRN FLUID RETENTION 01/01/23 albuterol sulfate 90 mcg/actuation aerosol inhaler (Ventolin HFA) 2 puff inhalation Q4H PRN shortness of breath or wheezing #18 grams 05/23/23 cetirizine 10 mg tablet 10 mg PO DAILY allergies #90 tabs 05/30/23 metoprolol tartrate 50 mg tablet 50 mg PO BID BLOOD PRESSURE 06/10/23 cholecalciferol (vitamin D3) 125 mcg (5,000 unit) disintegrating tablet 125 mcg PO QODAY SUPPLEMENT 08/05/23 budesonide-formoterol HFA 160 mcg-4.5 mcg/actuation aerosol inhaler (Symbicort) 2 puff inhalation BID SHORTNESS OF BREATH 10/08/23 gabapentin 100 mg capsule 100 mg PO QHS NERVE PAIN 10/24/23 fluticasone propionate 50 mcg/actuation nasal spray,suspension 2 spray intranasal DAILY PRN seasonal allergies 12/18/23 albuterol sulfate 2.5 mg/3 mL (0.083 %) solution for nebulization 2.5 mg (3 mL) inhalation Q4H PRN shortness of breath or wheezing #360 mL 01/04/24 losartan 25 mg tablet 25 mg PO DAILY blood pressure #30 tabs 01/25/24 ipratropium 0.5 mg-albuterol 3 mg (2.5 mg base)/3 mL nebulization soln 3 ml continuous nebulization Q6H PRN shortness of breath or wheezing 01/31/24 rosuvastatin 5 mg tablet 5 mg PO DAILY 04/27/24 prednisone 20 mg tablet 40 mg (2 x 20 mg) PO DAILY #14 tabs 04/29/24 Hospital Course Operations None Procedures 2-D Echocardiogram Summary of Care Provided Minutes Spent on Discharge: 36 Hospital Course: Per HPI: HARJIT ALBERTS, is a 53 M with past medical history of COPD, former nicotine use, hypertension, obesity, LAYLA, congestive heart failure who presents to the ED with concerns regarding altered mentation and worsening shortness of breath. He and his were on vacation in [place] and drove from [place] last night arriving home at approximately 4 AM. He is not able to wear his NIV during the travels and was getting slightly confused and more short of breath per the . At the time of presentation in the ED, respiratory rate 23 pulse 117, WBC 12.7, platelet count 183, hemoglobin 13.2, ABG showed pH of 7.2, bicarbonate of 60, pCO2 of 120, sodium was 136 in the ED was started on albuterol 5 mg, methylprednisone 60 mg once. Chest x-ray did not show any acute findings he was admitted previously on 12/18/2023 to 12/21/2023 for COPD exacerbation and for foot laceration at the time he had acute metabolic encephalopathy secondary to acute hypoxic and hypercapnic respiratory failure and was started on noninvasive ventilation, his symptoms improved and he went back to baseline. He was also treated for COPD exacerbation at the time with systemic steroids antibiotics and aerosol therapy. He is on 2 to 4 L of oxygen at home. Hospital Course: 1. Acute on chronic hypoxic hypercapnic respiratory failure secondary to COPD exacerbation with altered mental status?53-year-old male presented to the hospital with altered mental status and was found to have a pCO2 of 114 on ABG. He was placed on BiPAP and had fairly quick recovery and is back down to his home oxygen requirements where he needs about 4 L at rest 6 L with ambulation. He states that he was coming back from vacation last Sunday and drove for 14 hours without using his BiPAP and he thinks that is what set it off. I discussed with him the possibility for discharge she expressed understanding of the risk benefits of going home and he wants to go home today. Will continue with 7 more days of steroids as well as his home breathing treatments. He did have an echo which was unremarkable did not show any systolic dysfunction. 2. Chronic diastolic CHF, essential hypertension, hyperlipidemia, anxiety, depression, history of PE are chronic medical conditions which complicate his care. His home medications were continued where appropriate Physical Exam Narrative General: Drowsy but awakens easily, Cooperative, No apparent distress HEENT: Atraumatic, PERRLA, EOMI, Normocephalic Oral: Moist Mucosa Neck: Supple, No JVD Lungs: Diminished, poor air movement, No rhonchi, No wheeze, No rales Cardiovascular: Regular rate, Regular Rhythm, Normal S1, Normal S2, No murmurs Abdomen: Soft, Non Tender, Non-Distended, No Hepato-splenomegaly Extremities: No edema, Capillary Refill Less than 3 Seconds Skin: No rashes, No breakdown Musculoskeletal: No Tenderness to Palpation of Joints or Extremities Neurological: No focal neurological deficits, Motor Exam 5/5 strength throughout, Sensory exam intact to light touch and pain Psych/Mental Status: Flat Weight / BMI Weight Weight: 320 lb 1.779 oz Body Mass Index (BMI) 43.4 ABG / Lab / Microbiology Data 04/29/24 05:26 04/29/24 05:26 Laboratory: Laboratory Results - last 24 hr 04/29/24 05:26: WBC 14.0 H, RBC 4.18 L, Hgb 13.0, Hct 44.5, MCV 106.5 H, MCH 31.1, MCHC 29.2 L, RDW Std Deviation 48.0 H, RDW Coeff of Valerie 12.2, Plt Count 212, MPV 11.7, Immature Gran % (Auto) 0.900, Neut % (Auto) 89.6 H, Lymph % (Auto) 5.7 L, [place] % (Auto) 3.7, Eos % (Auto) 0.0, Baso % (Auto) 0.1, Absolute Neuts (auto) 12.5 H, Absolute Lymphs (auto) 0.80 L, Nucleated RBC % 0, Sodium 136, Potassium 4.0, Chloride 88 L, Carbon Dioxide > 45.0 H*, Anion Gap TNP, BUN 24 H, Creatinine 0.81, Estim Creat Clear Calc 152.51, Est GFR (MDRD) Af Amer 127, Est GFR (MDRD) Non-Af 105, BUN/Creatinine Ratio 29.6 H, Glucose 187 H, Calcium 9.8 ABG: ABG 04/27/24 16:35 ABG pCO2 138.7 H* Radiography Diagnostic Testing: Radiology Impression Echocardiogram 04/27/24 19:36 Interpretation Summary Normal LV size. Left ventricular systolic function is normal. The left ventricular ejection fraction is 55 %. The study was technically limited. Ordering Physician: Hayden Santizo Referring Physician: CHITRA SCOTT Performed By: Anjana Perez and Student D/C Instructions Discharge Diet: Low fat / Low cholesterol and 6 Cup Fluid Restriction Call your doctor if you observe: Fever of 101 or Higher, Shortness of breath, Dizziness, Fainting spells, Swelling in the ankles, Chest pain and Increased palpitations (irregular heartbeat) Meaningful Use Info Meaningful Use Meaningful Use Diagnoses (Choose all that apply): None applicable Ischemic Stroke Statin Dosing Therapy Reference: STATIN DOSE THERAPY REFERENCE: * Patients > 75 years receive moderate or high dose statin therapy. * Patients 75 years or YOUNGER should receive HIGH intensity statin dose unless contraindicated. You will be required to document reason for non-treatment if statin daily dose does not meet guidelines. HIGH DOSE STATIN THERAPY DAILY Atorvastatin > than or = to 40 mg Rosuvastatin > than or = to 20 mg Amlodipine + Atorvastatin > than or = to 2.5/40 mg Ezetimibe + Simvastatin 10/80 mg Simvastatin 80mg Discharge Plan Admission Admit Date/Time: 04/27/24 18:21 Attending Provider: Jer Graham Primary Care Provider: Chitra Scott Consulting Providers: Hayden Santizo Discharge Orders/Prescriptions Prescriptions: New prednisone 20 mg tablet 40 mg PO DAILY Qty: 14 0RF Continued sertraline 100 mg tablet 100 mg PO DAILY Patient Comments: pt states he hasnt taken in about 6 months ipratropium-albuterol 0.5 mg-3 mg(2.5 mg base)/3 mL solution for nebulization 3 ml continuous nebulization Q6H PRN (Reason: shortness of breath or wheezing) spironolactone 25 MG tablet 25 mg PO BID bupropion HCl [Wellbutrin XL] 150 mg Tablet Extended Release 24 Hr 150 mg PO DAILY Patient Comments: pt states he takes twice daily cyanocobalamin (vitamin B-12) 500 MCG tablet 500 mcg PO DAILY Nucala 100 mg/mL auto-injector 300 mg subcut Q4W Patient Comments: Takes around the of each month. Rx Instructions: administer as three 100 mg injections at separate sites torsemide 20 mg tablet 20 mg PO BID Qty: 60 2RF furosemide 40 mg tablet 40 mg PO DAILY PRN (Reason: FLUID RETENTION) metoprolol tartrate 50 mg tablet 50 mg PO BID budesonide-formoterol [Symbicort] 160-4.5 mcg/actuation HFA aerosol inhaler 2 puff inhalation BID Patient Comments: pt states they normally take 2 puffs at night, but 2 in morning as needed gabapentin 100 mg capsule 100 mg PO QHS fluticasone propionate 50 mcg/actuation spray,suspension 2 spray INTRANASAL DAILY PRN (Reason: seasonal allergies) cholecalciferol (vitamin D3) 125 mcg (5,000 unit) tablet,disintegrating 125 mcg PO QODAY Patient Comments: pt states he takes every morning rosuvastatin 5 mg tablet 5 mg PO DAILY rosuvastatin 5 mg tablet 5 mg PO DAILY montelukast [Singulair] 10 mg tablet 10 mg PO QPM Qty: 30 5RF albuterol sulfate [Ventolin HFA] 90 mcg/actuation HFA aerosol inhaler 2 puff INHALATION Q4H PRN (Reason: shortness of breath or wheezing) Qty: 18 6RF cetirizine 10 mg tablet 10 mg PO DAILY Qty: 90 3RF albuterol sulfate 2.5 mg /3 mL (0.083 %) solution for nebulization 2.5 mg INHALATION Q4H PRN (Reason: shortness of breath or wheezing) Qty: 360 6RF losartan 25 mg tablet 25 mg PO DAILY Qty: 30 6RF Patient Comments: pt states they take in the am Referrals / Follow Up: Chitra Scott, FLOATLIGHT LOADING SUPERVISOR-C [Primary Care Provider] - Within 1 Week Disposition Disposition (needs filled in before D/C Order can be placed): Home, Self Care Charges/Coding Visit Charges Inpatient E&M: 61899 Disch Hosp >30min
--- NOTE | 2024-04-29 15:58 | CASEMGMT ---
Addendum entered by Carlotta Fontenot 04/29/24 16:35: Green sheet placed on the pt chart in the case that the pt qualifies for increased oxygen demands compared to current Rx. Original Note: Order for pt DC placed. TC to [facility] and Gisela states that they can start care tomorrow (04/30) for SN. Pt discharge information updated. RN CM to pt room at this time. Pt SO at bedside. Pt and Pt SO updated with plan. Pt SO brought a portable oxygen tank for the pt. Pt SO states that [facility] came to their home yesterday and made sure all of the pt oxygen equipment is working and up to date. RN O2 testing pending for potential updated Rx. Pt and Pt SO deny further needs or concerns at this time. Pt denies further home going needs.
--- NOTE | 2024-04-29 16:30 | PHA.DC.MR.R ---
Pharmacy [place] Med Reconciliation Pharmacy Service has performed discharge medication reconciliation for this patient. Attempted to grief counsellor x2, patient was sleeping. Medications reviewed. The patient's discharge medication list was reviewed for discrepancies and discrepancies were resolved. Medications at Discharge Home Medications spironolactone 25 mg tablet 25 mg PO BID FLUID RETENTION/BLOOD PRESSURE 12/02/15 bupropion HCl 150 mg 24 hr tablet, extended release (Wellbutrin XL) 150 mg PO DAILY DEPRESSION 10/11/21 cyanocobalamin (vitamin B-12) 500 mcg tablet 500 mcg PO DAILY SUPPLEMENT 11/08/21 sertraline 100 mg tablet 100 mg PO DAILY DEPRESSION 01/23/22 montelukast 10 mg tablet (Singulair) 10 mg PO QPM COPD #30 tabs 06/30/22 mepolizumab 100 mg/mL subcutaneous auto-injector (Nucala) 300 mg subcut Q4W asthma 11/05/22 torsemide 20 mg tablet 20 mg PO BID FLUID RETENTION #60 tabs 11/08/22 furosemide 40 mg tablet 40 mg PO DAILY PRN FLUID RETENTION 01/01/23 albuterol sulfate 90 mcg/actuation aerosol inhaler (Ventolin HFA) 2 puff inhalation Q4H PRN shortness of breath or wheezing #18 grams 05/23/23 cetirizine 10 mg tablet 10 mg PO DAILY allergies #90 tabs 05/30/23 metoprolol tartrate 50 mg tablet 50 mg PO BID BLOOD PRESSURE 06/10/23 cholecalciferol (vitamin D3) 125 mcg (5,000 unit) disintegrating tablet 125 mcg PO QODAY SUPPLEMENT 08/05/23 budesonide-formoterol HFA 160 mcg-4.5 mcg/actuation aerosol inhaler (Symbicort) 2 puff inhalation BID SHORTNESS OF BREATH 10/08/23 gabapentin 100 mg capsule 100 mg PO QHS NERVE PAIN 10/24/23 fluticasone propionate 50 mcg/actuation nasal spray,suspension 2 spray intranasal DAILY PRN seasonal allergies 12/18/23 albuterol sulfate 2.5 mg/3 mL (0.083 %) solution for nebulization 2.5 mg (3 mL) inhalation Q4H PRN shortness of breath or wheezing #360 mL 01/04/24 losartan 25 mg tablet 25 mg PO DAILY blood pressure #30 tabs 01/25/24 ipratropium 0.5 mg-albuterol 3 mg (2.5 mg base)/3 mL nebulization soln 3 ml continuous nebulization Q6H PRN shortness of breath or wheezing 01/31/24 rosuvastatin 5 mg tablet 5 mg PO DAILY 04/27/24 prednisone 20 mg tablet 40 mg (2 x 20 mg) PO DAILY #14 tabs 04/29/24
== END 2024-04-29 17:45 | disposition home health service (06) | DRG 189 ==
LOC: ED 17:33 → PCU 17:57
PROVIDERS: Nurse Practitioner; Admitting Provider Internal Medicine; Emergency Provider Emergency Medicine; PCP Nurse Practitioner Family; Visit Provider Family Medicine
DX: J96.22 Acute and chronic respiratory failure with hypercapnia (principal); J44.1 Chronic obstructive pulmonary disease with (acute) exacerbation; I50.32 Chronic diastolic (congestive) heart failure; I11.0 Hypertensive heart disease with heart failure; Z99.81 Dependence on supplemental oxygen; F32.A Depression, unspecified; G47.33 Obstructive sleep apnea (adult) (pediatric); E78.5 Hyperlipidemia, unspecified; F17.210 Nicotine dependence, cigarettes, uncomplicated; F41.9 Anxiety disorder, unspecified; G62.9 Polyneuropathy, unspecified; Z79.899 Other long term (current) drug therapy; Z86.711 Personal history of pulmonary embolism
CPT/HCPCS: 36415; 36600; 71045; 80048; 80053; 80076; 82803; 83735; 83880; 84100; 84443; 84484; 85025; 85379; 85610; 93005; 93306; 94002; 94003; 94640; 94668; 94762; 99252; 99285; A4216; G0463

== ENCOUNTER → 2024-07-10 | Outpatient (CLI) | payer MEDICARE, SELFPAY ==
--- NOTE | 2024-07-10 15:31 | CT_ITS ---
STUDY: LOW DOSE CT LUNG CANCER SCREENING REASON FOR EXAM: Male, 53 years old. smoker RADIATION DOSAGE (If Supplied By Facility): CTDIvol = ( 4.02 ) mGy, DLP = ( 147.48 ) mGycm TECHNIQUE: No contrast was administered. Low dose technique was utilized (average mAS-38 and kVp 120). 1.25 mm axial source images with a slice interval of 1.25-mm were reconstructed in lung windows. 2.5 mm axial source images with a slice interval of 2.5-mm were reconstructed in lung windows. 5.0 mm axial source images with a slice interval of 5.0-mm were reconstructed in soft tissue windows. COMPARISON: None. Emphysema: Mild emphysema. 2 cm noncalcified nodule in the posterior right upper lobe of the lungs on image 65 worrisome for bronchogenic carcinoma and correlation with PET/CT scanner tissue sampling is recommended. Endobronchial lesion: None Aorta: No thoracic aortic aneurysm. CORONARY ARTERIES: Coronary artery calcification is seen. Heart: No cardiomegaly. Pulmonary artery: Enlarged central pulmonary arteries worrisome for pulmonary arterial hypertension. Mediastinal nodes: Normal Other chest and abdominal findings: Multiple healed left rib fractures. CT/Low Dose CT Lung Screening IMPRESSION: Lung-RADS category 4B - Chest CT with or without contrast, PET/CT and/or tissue sampling can be obtained depending on the probability of malignancy and comorbidities. IMPORTANT NOTES FOR USE: ACR Lung-RADS Version 1.1 Assessment Categories Release Date: 2018 Category: Coded 0-4 bases on nodule(s) with highest degree of suspicion. Negative screen is defined as categories 1 and 2; a positive screen is defined as categories 3 and 4. Category 3 and 4A nodules that are unchanged on interval CT should be coded as category 2, and individuals returned to screening in 12 months. Category 4X: Category 3 or 4 nodules with additional imaging findings that increase the suspicion of lung cancer, such as spiculation, GGN that doubles in size in 1 year, enlarged lymph notes, etc. Category Modifiers: S (significant finding unrelated to lung cancer) Electronically Signed: Edgard Lozada MD at 13:11 EDT ,
== END | disposition home or self-care (01) ==
LOC: CT 15:28
PROVIDERS: PCP Nurse Practitioner Family; Referring Provider Nurse Practitioner Acute Care; Visit Provider Nurse Practitioner Acute Care
DX: Z12.2 Encounter for screening for malignant neoplasm of respiratory organs (principal); F17.210 Nicotine dependence, cigarettes, uncomplicated
CPT/HCPCS: 71271

== ENCOUNTER → 2024-07-29 | Outpatient (CLI) | payer MEDICARE, SELFPAY ==
--- NOTE | 2024-07-29 08:00 | PET_ITS ---
EXAMINATION: FDG-PET/CT ? INDICATIONS: 53-year-old male with a history of pulmonary nodularity. ? COMPARISON EXAMINATION: CT of the chest dated 07/10/2024. ? INDEX LESION SIZE SUV INTERPRETATION Right upper lung field, right upper lobe 20.7 mm 11.6 Fulfills quantitative criteria for viable neoplasm, histopathologic analysis recommended ? TECHNIQUE: Following the intravenous administration of 12.05 mCi of F-18 deoxyglucose via the left hand, multiplanar image acquisitions of the head, neck, chest, abdomen and pelvis to the level of the midthigh, obtained at one-hour post radiopharmaceutical administration contemporaneously interpreted with the current CT of the chest, abdomen and pelvis dated 06/28/[address] of the chest study dated 07/10/2024 via coregistration reveal: ? SERUM GLUCOSE LEVEL:? 100 mg/dL? HEIGHT:?? 72 inches WEIGHT:?? 312 pounds ? FINDINGS: ? HEAD/NECK:? There is no evidence of abnormal increased glucose metabolism in the pharyngeal mucosal space, parapharyngeal space, oropharynx, bilateral-lateral and anterior neck, hypopharynx and distribution of the larynx. ? The visualized portion of the cerebral cortical-subcortical structures demonstrate symmetric and preserved glucose metabolism. ? CHEST: Enhanced tracer uptake is noted in the right upper posterior lung zone, posterior segment of the right upper lobe.? The calculated standard uptake value is 11.6.? The maximal axial diameter of the metabolic, morphologic abnormality is 20.7 mm. ? CT of the chest demonstrates the following anatomic characteristics: There are no additional parenchymal densities-nodules defined in the right and left hemithorax with quantitatively significant increased FDG uptake.? Coronary artery calcification is demonstrated.? Mediastinal and bilateral axillary soft tissue densities are ametabolic. ? ABDOMEN/PELVIS:? Normal physiologic distribution of the radiopharmaceutical is identified in the hepatic (3.7) and splenic parenchyma, both renal units, urinary bladder, and visualized intestinal tract.? Diffuse intestinal tract is identified in all four quadrants of the abdominal-pelvic mesentery. ? CT of the abdomen and pelvis is remarkable for the following: Atherosclerotic calcification is defined in the abdominal aorta without evidence of dilatation, aneurysm formation.? Pelvic arterial calcification is observed.? Bilateral inguinal soft tissue densities are ametabolic.? Cyst formation is identified in the right kidney. ? SKELETAL:? There is no evidence of quantitatively significant enhanced glucose metabolism on meticulous inspection of the appendicular and axial skeletal structures. ? Degenerative changes defined in the thoracic and lumbar spine demonstrate no evidence of increased glucose metabolism. There are no sclerotic, mixed sclerotic-lytic, or primarily lytic changes defined in the axial skeletal structures with evidence of increased FDG uptake. ? PET/PET/CT Tumor Base -Thigh Init IMPRESSION: 1. ABNORMAL EXAMINATION INDICATIVE MALIGNANT-VIABLE NEOPLASM. 2.? Increased tracer uptake noted in the right lung field, right upper lobe fulfills quantitative criteria for viable neoplasm. Histopathologic analysis is recommended.? (Guevara et al, Journal of Nuclear Medicine, 32:1, 1991). 3.? No other quantitative scintigraphic hypermetabolic abnormalities are noted. Electronic Signature Edgard Robertson D.O. Accurate Quantification of SUVs for this report are calculated using the exclusive [employer]. (U.S. Patent No. [phone] [id number] [phone] B2 [phone] patent [phone]). Standardization and correction of the FDG SUV metric via [employer] technology allow for vendor non-specific objective quantitative examination comparison and optimization of the sensitivity and specificity of the FDG PET-CT examination. [email or web address] Electronically Signed: Edgard Robertson DO at 9:48 EDT ,
== END | disposition home or self-care (01) ==
PROVIDERS: PCP Nurse Practitioner Family; Referring Provider Nurse Practitioner Acute Care; Visit Provider Nurse Practitioner Acute Care
DX: R91.1 Solitary pulmonary nodule (principal); J44.9 Chronic obstructive pulmonary disease, unspecified
CPT/HCPCS: 78815; A9552

== ENCOUNTER → 2024-08-13 | Outpatient (CLI) | payer MEDICARE, SELFPAY ==
--- NOTE | 2024-08-12 | IMM_PTH ---
PATIENT: HARJIT ALBERTS LOC: CT U#:[id number] AGE/SX: 53/M ROOM: RE08/13/[address]: CLAYTON Pastrana : 1970 BED: DIS: 08/13/2024 SPEC #: [id number] RECD: 08/13/24 10:55 STATUS: YAMILKA REQ #: [id number] PURNIMA: 08/12/24 00:[address]: Alesia Morales NP DEPT: IMMUNOHISTOCHEMISTRY RECD BY: Flakito Gudino ENTERED: 08/13/24 10:56 SP TYPE: IMMUNO OTHR DR: CLAYTON Monroy Tissues: Lung, NOS Procedures: RCC (add) NAPSIN A (add) CK20 (add) CK7 (add) CK8 (add) HEP PAR (add) TTF1 (add) Pankeratin (initial) PHYSICIAN & INSTITUTION [place] [id number] SPECIMEN INFORMATION: Tissue Source: Right lung biopsy Clinical Info: Lung mass Specimen Number: [id number] CPT code: [id number] METHODOLOGY: Deparaffinized sections of prefer/formalin-fixed tissue or PAP/DQ stained slides are incubated with monoclonal/polyclonal antibodies/oligonucleotide probes. Localization is made via biotin free immunoperoxidase method. Appropriate controls are performed and reacted as expected. Results on target cell population are indicated in the following table: RESULTS: ANTIBODY / CLONE RESULT AE1-3 (AE1/AE3/PCK26) positive, focal CK7 (OV-TL12/30) positive CK8 ([id number]) positive CK20 (KS20.8) negative TTF-1 (8G7G3/1) positive, rare cells Napsin A (Rabbit Polyclonal) positive, rare cells HepPar (OCh1E5) negative RCC (PN-15) negative These tests were developed and their performance characteristics determined by [facility]. They may not have been cleared or approved by the U.S. Food and Drug Administration. The FDA has determined that such clearance or approval is not necessary. The above immunohistochemical/dualISH markers are ordered and reviewed by the Pathologist. INTERPRETATION: Right lung, CT guided core biopsy: A minute focus of non-small cell carcinoma, favor adeocarcinoma. See comment. COMMENT: IHC profile favors lung primary. Case has been reviewed in consultation with Dr. Montoya who concurs with the above diagnosis. IDC:JESSIE Hyatt 08/15/2024
[2024-08-13] VITALS (11 sets, daily range): BP systolic 114–141; BP diastolic 42–93; PULSE 82–94; RESP 14–22; TEMP 36.2; O2SAT 95–100; BMI 42.3
--- NOTE | 2024-08-13 | ASPIGT_PTH ---
PATIENT: HARJIT ALBERTS LOC: CT U#:[id number] AGE/SX: 53/M ROOM: RE08/13/[address]: CLAYTON Pastrana : 1970 BED: DIS: 08/13/2024 SPEC #: [id number] RECD: 08/13/24 10:30 STATUS: YAMILKA EMILE #: [id number] PURNIMA: 08/13/24 00:[address]: Alesia Morales NP DEPT: SURGICAL PATHOLOGY RECD BY: Elisha Lindquist ENTERED: 08/13/24 13:57 SP TYPE: ASP RAD OTHR DR: CLAYTON Monroy Tissues: Lung, NOS Procedures: FNA Specimen Adequacy Special Stain Group II Surgery Specimen Level IV Imprint (control) HEADER OPERATION: CT guided lung nodule biopsy PRE-OP DIAGNOSIS: Right lung nodule TISSUE SUBMITTED: 20 gauge x 6 cores MICROSCOPIC DIAGNOSIS Right lung nodule, CT guided core biopsy: A minute focus of non-small cell carcinoma, favor adenocarcinoma. See comment. LOREE/ 08/15/2024 COMMENT The specimen is evaluated at the time of biopsy by Dr. Tyson. Immediate Evaluation = Malignant cells present derived from non-small cell carcinoma. Malignant cells are present predominantly in the touch imprint slides. Core biopsy shows only a minute focus of carcinoma. Immunohistochemistry ([id number]) supports the above diagnosis and favor lung primary. Case has been reviewed in consultation with Dr. Montoya who concurs with the above diagnosis. IDC:AM MICROSCOPIC DESCRIPTION Slides are reviewed. GROSS DESCRIPTION Received in fixative is one container labeled with the patient's name and designated Right lung biopsy. The specimen consists of multiple irregular fragments of light jacob soft tissue that in aggregate measure 0.5 x 0.1 x <0.1 cm. The specimen is totally submitted in one cassette. 08/13/2024 TC:0 CPT:31343,41559
[2024-08-13 08:56] LABS: Platelet Count 181 K/mm3 (150-450)
[2024-08-13 09:08] LABS: Partial Thromboplast Time 22.9 Seconds (24.1-36.2); Prothrombin Time (Protime)PT. 12.8 SECONDS (11.7-14.9)
--- NOTE | 2024-08-13 10:15 | RAD_ITS ---
STUDY: X-RAY CHEST REASON FOR EXAM: Male, 53 years old. Post lung biopsy -- Immediately post lung biopsy TECHNIQUE: AP and inspiration and expiration views. COMPARISON: Comparison is made with prior study dated April 27, 2024. FINDINGS: The patient is status post right lung biopsy. No evidence of pneumothorax. RAD/Chest Insp/Exp 2 View IMPRESSION: There is no evidence of pneumothorax following a right lung biopsy. Electronically Signed: Arsenio Funk MD at 11:07 EDT ,
[2024-08-13] MEDS: 0.9% Normal Saline (250mL Bag) 250 ML 15 ML IV (10:20)
[2024-08-13] MEDS: Midazolam 2 MG/2 ML Syringe IV (10:27)
[2024-08-13] MEDS: fentaNYL 100 MCG/2 ML Ampul IV (10:27)
[2024-08-13] MEDS: Lidocaine 2% (20 ml mdv) 20 ML Vial INFILT (10:30)
--- NOTE | 2024-08-13 11:10 | PCM.OP.PRO ---
Procedure Report Date of Procedure: 08/13/24 Assessment & Plan Assessment/Plan (1) Lung nodule: PLAN: PROCEDURE: CT GUIDED CORE NEEDLE LUNG BIOPSY ORDERING PROVIDER: Alesia Morales CNP INDICATION: Male, 53 years old. Right upper lobe lung nodule. PROVIDER: WILBERT Singh CONSENT: Written informed consent was obtained having explained the risks, benefits and alternatives in detail with the patient who accepted the risks and agreed to proceed. Laboratory review and clinical assessment was performed. PRE-PROCEDURE SEDATION ASSESSMENT: Current history and physical dictated by referring physician and reviewed. No clinical changes since date of exam. Patient has a Mallampati Score of Class 1 and ASA Class of 3. PROCEDURAL SEDATION PROTOCOL: The Drugs used were: 1 mg Versed, IV, and 25 mcg Fentanyl, IV. The sedation time was: 15 minutes, starting at 1027 and terminated at 1042. The procedural sedation protocol was independently monitored by the department nurse. RADIATION DOSAGE (Supplied By Facility): CTDIvol = 21.7 mGy, DLP = 1508.9 mGycm Individualized dose optimization techniques were used for this CT. TECHNIQUE: The patient was placed in a left lateral decubitus position. A noncontrast CT was performed to localize the lesion in the right upper lobe. The skin surface was prepped with chlorhexidine and draped in a sterile fashion. 2% lidocaine was used for local anesthesia. Using CT guidance, a 20-gauge coaxial biopsy device was advanced to the periphery of the lesion. A total of 6 core specimens were obtained. Specimens were microscopically reviewed by pathology in the CT suite and placed in formalin solution. BioSentry tract sealant system was deployed at the biopsy site, and the biopsy needle was removed. A sterile occlusive dressing was applied to the biopsy site. The patient tolerated the procedure well. An immediate chest xray was ordered, per protocol. A negative biopsy does not exclude malignancy. Further imaging or clinical followup based on patient condition and degree of clinical suspicion for malignancy. Suggest rebiopsy, if biopsy results do not match with clinical scenario. IMPRESSION: CT directed core needle biopsy of right upper lobe lung nodule using CT image guidance with image documentation as described. Pathology results are pending. Procedural Sedation protocol utilized with independent monitoring by the department nurse. Procedures Radiology Radiology CT Procedures: [id number] Biopsy Lung
--- NOTE | 2024-08-13 12:15 | RAD_ITS ---
STUDY: X-RAY CHEST REASON FOR EXAM: Male, 53 years old. Post lung biopsy -- 2 hours post lung biopsy TECHNIQUE: AP inspiration and expiration views. COMPARISON: Comparison is made with prior study done earlier today. FINDINGS: No evidence of pneumothorax following the right lung biopsy. RAD/Chest Insp/Exp 2 View IMPRESSION: No evidence of pneumothorax on the 2 hour post right lung biopsy radiographs. Electronically Signed: Arsenio Funk MD at 9:45 EDT ,
== END | disposition home or self-care (01) ==
PROVIDERS: PCP Nurse Practitioner Family; Referring Provider Nurse Practitioner Acute Care; Visit Provider Nurse Practitioner Acute Care
DX: C34.91 Malignant neoplasm of unspecified part of right bronchus or lung (principal); I48.91 Unspecified atrial fibrillation; R91.8 Other nonspecific abnormal finding of lung field; I10 Essential (primary) hypertension; R06.00 Dyspnea, unspecified; R91.1 Solitary pulmonary nodule
CPT/HCPCS: 32408; 36415; 71046; 77012; 85049; 85610; 85730; 88172; 88305; 88313; 88341; 88342; 99156; J7050; C2613

== ENCOUNTER 2024-09-01 09:11 | Emergency (ER) | payer MEDICARE, SELFPAY ==
[2024-09-01 09:12] VITALS: BP 138/93; PULSE 84; RESP 18; TEMP 36.8; O2SAT 95; BMI 42.3
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
[2024-09-01 10:01] VITALS: BP 134/79; PULSE 84; RESP 20; TEMP 36.6; O2SAT 98
--- NOTE | 2024-09-01 10:10 | ED.RN ---
This Rn went over DC instructions with patient. Highly encouraged to return to the ER with any SOB or respiratory distress.
== END 2024-09-01 10:11 | disposition home or self-care (01) ==
PROVIDERS: Emergency Provider Surgery; PCP Nurse Practitioner Family; Visit Provider Surgery
DX: T20.10XA Burn of first degree of head, face, and neck, unspecified site, initial encounter (principal); I50.9 Heart failure, unspecified; J44.9 Chronic obstructive pulmonary disease, unspecified; R09.02 Hypoxemia; F17.210 Nicotine dependence, cigarettes, uncomplicated; G47.33 Obstructive sleep apnea (adult) (pediatric); Z86.718 Personal history of other venous thrombosis and embolism; X58.XXXA Exposure to other specified factors, initial encounter
CPT/HCPCS: 99282

== ENCOUNTER 2024-09-06 14:58 | Inpatient (IN) | payer MEDICARE, SELFPAY ==
[2024-09-06] VITALS (15 sets, daily range): BP systolic 109–161; BP diastolic 85–99; PULSE 72–98; RESP 12–26; TEMP 36.3–36.9; O2SAT 89–100; BMI 44.5; BMI 41.8
--- NOTE | 2024-09-06 15:24 | RAD_ITS ---
EXAM: XR CHEST, 1 VIEW CLINICAL INDICATION: chest pain TECHNIQUE: Frontal view of the chest. COMPARISON: 08/13/2024 FINDINGS: LUNGS AND PLEURAL SPACES: There is a right upper lobe pulmonary nodule that measures roughly 1.8 cm. There is minimal scarring in the lung bases. No pneumothorax. No effusion. HEART: Unremarkable. Cardiac silhouette not enlarged. MEDIASTINUM: Central airways and mediastinal contour are unremarkable. BONES/JOINTS: Unremarkable. No acute fracture. SOFT TISSUES: Unremarkable. RAD/Chest 1 View IMPRESSION: Right upper lobe nodule. There is minimal scarring in the lung bases. There is no acute pulmonary abnormality. Electronically Signed: Deandre Ruiz MD at 16:37 EDT ,
--- NOTE | 2024-09-06 15:24 | EKG12_ITS ---
Test Reason : SOB Blood Pressure : / mmHG Vent. Rate : 086 BPM Atrial Rate : 086 BPM P-R Int : 146 ms QRS Dur : 138 ms QT Int : 394 ms P-R-T Axes : 067 087 047 degrees QTc Int : 471 ms Normal sinus rhythm Right bundle branch block Abnormal ECG Confirmed by Yobani Lomeli ([id number]), editor managing newspaper JAY SANTORO ([id number]) on 09/08/2024 9:35:34 AM Referred By: Confirmed By:Yobani Lomeli
[2024-09-06] MEDS: predniSONE 20 MG Tablet 60 MG PO (15:41)
[2024-09-06 15:50] LABS: Absolute Lymphocyte Count 1.62 X10^3/uL (0.83-4.51); Absolute Neutrophil Count 10.5 X10^3/uL (2.0-7.7); Basophil# 0.06 X10^3/uL; Basophil% 0.4 % (0-1); Eosinophil# 0.01 X10^3/uL; Eosinophils% 0.1 % (0-5); Hemoglobin 13.7 g/dL (13.0-16.5); Lymphocyte # 1.62 X10^3/ul (0.83-4.51); Lymphocyte % 12.1 % (19-41); Mean Corp Hgb Conc 29.8 g/dL (32-36); Mean Corpuscular Hgb 31.5 pg (27.0-32.0); Mean Corpuscular Volume 105.7 fL (80-94); Mean Platelet Vol. 10.7 fl (6.2-12.0); Monocyte# 1.04 X10^3/uL; Monocyte% 7.8 % (0-10); NRBC Flagged by Analyzer 0 % (0-5); Neutrophil # 10.54 X10^3/uL (2.7-7.7); Neutrophil % 78.9 % (47-70); Platelet Count 223 K/mm3 (150-450); RBC Distribution Width CV 12.6 % (11.6-14.6); RBC Distribution Width SD 49.4 fl (35.1-43.9); Red Blood Count 4.35 M/mm3 (4.6-6.2); White Blood Count 13.4 K/mm3 (4.4-11.0)
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
[2024-09-06] MEDS: Ipratropium/Albuterol Sulfate 3 ML AMPUL.NEB INHALATION ×3 (16:00→23:32)
[2024-09-06 16:11] LABS: Allen Test Positive; Base Excess 28 mmol/L (-2 to +2); Blood Gas Specimen Type ART; Comment 7L; Mode Not entered; O2 Delivery Device Venti Mask; PO2 47 mmHG (75-100); SITE L Radial; SO2 76 % (95-99); Total Carbon Dioxide > 50 mmol/L; pCO2 100.1 mmHg (35-45); pH 7.34 (7.35-7.45)
[2024-09-06 16:17] LABS: BUN 16 mg/dL (7-18); BUN/Creat Ratio 22.7 RATIO (10-20); Calcium,Total 9.9 mg/dL (8.5-10.1); Chloride 87 mmol/L (98-107); EST Glomerular Filtration Rate 123 mL/min (>60); Est Glom Filt Rate - Afr Amer 149 mL/min (>60); Estimated Creatinine Clearance 178.97 ml/min; Glucose 114 mg/dL (74-106); Sodium Level 138 mmol/L (136-145); Troponin-I HS (w/2H Reflex) 11 pg/mL (3.0-78.0)
[2024-09-06] MEDS: Sodium Chloride 0.65% 1 SPRAY SPRAY.BTL 2 SPRAY NASAL (16:17)
[2024-09-06 16:24] LABS: BNP,B-Type NATRIURETIC PEPTIDE 139.9 pg/mL (0-100)
[2024-09-06] MEDS: levoFLOXacin IV 750 MG/150 ML BAG 100 MG IV (17:02)
[2024-09-06] MEDS: MethylPREDNISolone 125 MG/2 ML Vial IV (17:12)
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
[2024-09-06 17:40] LABS: Reflex Troponin-HS? (from REC) Y
[2024-09-06 21:28] LABS: Troponin-I HS 10 pg/mL (3.0-78.0)
[2024-09-06] MEDS: Enoxaparin 40 MG/0.4 ML Syringe SC (21:34)
[2024-09-06] MEDS: guaiFENesin 1,200 MG Tablet 1200 MG PO (21:34)
[2024-09-06] MEDS: Gabapentin 100 MG Capsule 200 MG PO (21:34)
[2024-09-06] MEDS: Atorvastatin Calcium 10 MG Tablet PO (21:35)
[2024-09-06] MEDS: buPROPion (SR) 150 MG Tablet.SA PO (21:35)
[2024-09-06] MEDS: Metoprolol Tartrate 50 MG Tablet PO (21:35)
[2024-09-06] MEDS: Acetaminophen 325 MG Tablet 650 MG PO (21:35)
[2024-09-06] MEDS: Spironolactone 25 MG Tablet PO (21:35)
[2024-09-06] MEDS: Furosemide 40 MG Tablet PO (21:35)
[2024-09-06] MEDS: 0.9% Saline Lock 10 ML Syringe IV (21:36)
--- NOTE | 2024-09-06 22:44 | CPS ---
@2029 patient refused to have nasal swab done for a Respiratory Panel due to the francois in his nose. RN aware.
[2024-09-07] VITALS (19 sets, daily range): BP systolic 122–155; BP diastolic 57–98; PULSE 64–105; RESP 12–22; TEMP 36.3–36.9; O2SAT 88–99; BMI 42.0
[2024-09-07 00:46] LABS: Carbon Dioxide > 45.0 mmol/L (21.0-32.0)
[2024-09-07] MEDS: Ipratropium/Albuterol Sulfate 3 ML AMPUL.NEB INHALATION ×5 (02:28→23:32)
[2024-09-07] MEDS: 0.9% Saline Lock 10 ML Syringe IV ×4 (05:59→21:08)
[2024-09-07 07:16] LABS: Absolute Lymphocyte Count 0.73 X10^3/uL (0.83-4.51); Absolute Neutrophil Count 10.3 X10^3/uL (2.0-7.7); Basophil# 0.01 X10^3/uL; Basophil% 0.1 % (0-1); Hematocrit 40.6 % (40-54); Lymphocyte # 0.73 X10^3/ul (0.83-4.51); Lymphocyte % 6.4 % (19-41); Mean Corp Hgb Conc 29.6 g/dL (32-36); Mean Corpuscular Hgb 30.9 pg (27.0-32.0); Mean Corpuscular Volume 104.6 fL (80-94); Monocyte# 0.29 X10^3/uL; Monocyte% 2.5 % (0-10); NRBC Flagged by Analyzer 0 % (0-5); Neutrophil # 10.28 X10^3/uL (2.7-7.7); Neutrophil % 90.3 % (47-70); Platelet Count 197 K/mm3 (150-450); RBC Distribution Width CV 12.4 % (11.6-14.6); RBC Distribution Width SD 47.7 fl (35.1-43.9); Red Blood Count 3.88 M/mm3 (4.6-6.2); White Blood Count 11.4 K/mm3 (4.4-11.0)
[2024-09-07 07:45] LABS: BUN 19 mg/dL (7-18); BUN/Creat Ratio 26.5 RATIO (10-20); Calcium,Total 9.7 mg/dL (8.5-10.1); Carbon Dioxide > 45.0 mmol/L (21.0-32.0); Chloride 87 mmol/L (98-107); Creatinine, Serum 0.72 mg/dL (0.70-1.30); EST Glomerular Filtration Rate 121 mL/min (>60); Est Glom Filt Rate - Afr Amer 146 mL/min (>60); Estimated Creatinine Clearance 168.49 ml/min; Glucose 194 mg/dL (74-106); Magnesium 2.1 mg/dL (1.6-2.6); Potassium 4.1 mmol/L (3.5-5.1); Sodium Level 137 mmol/L (136-145)
[2024-09-07 08:23] LABS: Prothrombin Time (Protime)PT. 13.2 SECONDS (11.7-14.9)
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
[2024-09-07] MEDS: Furosemide 40 MG Tablet PO ×2 (09:59→18:26)
[2024-09-07] MEDS: Enoxaparin 40 MG/0.4 ML Syringe SC ×2 (09:59→21:08)
[2024-09-07] MEDS: buPROPion (SR) 150 MG Tablet.SA PO ×2 (09:59→21:08)
[2024-09-07] MEDS: Metoprolol Tartrate 50 MG Tablet PO ×2 (09:59→21:07)
[2024-09-07] MEDS: Losartan Potassium 25 MG Tablet PO (10:00)
[2024-09-07] MEDS: Spironolactone 25 MG Tablet PO ×2 (10:00→21:08)
[2024-09-07] MEDS: guaiFENesin 1,200 MG Tablet 1200 MG PO ×2 (10:00→21:07)
[2024-09-07] MEDS: Acetaminophen 325 MG Tablet 650 MG PO ×2 (10:08→21:19)
[2024-09-07] MEDS: levoFLOXacin IV 750 MG/150 ML BAG 100 MG IV (10:14)
[2024-09-07] MEDS: Sodium Chloride 0.65% 1 SPRAY SPRAY.BTL 2 SPRAY NASAL ×2 (16:20→21:20)
[2024-09-07] MEDS: Mineral Oil/Petrolatum Cr 1.75oz Bottle 1 APPLIC TOPICAL (16:23)
[2024-09-07] MEDS: Gabapentin 100 MG Capsule 200 MG PO (21:07)
[2024-09-07] MEDS: Atorvastatin Calcium 10 MG Tablet PO (21:08)
[2024-09-08] VITALS (9 sets, daily range): BP systolic 107–128; BP diastolic 72–86; PULSE 64–76; RESP 12–18; TEMP 36.2–36.7; O2SAT 96–99; BMI 41.9
[2024-09-08] MEDS: Ipratropium/Albuterol Sulfate 3 ML AMPUL.NEB INHALATION ×4 (03:49→14:46)
[2024-09-08] MEDS: 0.9% Saline Lock 10 ML Syringe IV (06:03)
[2024-09-08] MEDS: buPROPion (SR) 150 MG Tablet.SA PO (09:08)
[2024-09-08] MEDS: guaiFENesin 1,200 MG Tablet 1200 MG PO (09:08)
[2024-09-08] MEDS: Metoprolol Tartrate 50 MG Tablet PO (09:08)
[2024-09-08] MEDS: Enoxaparin 40 MG/0.4 ML Syringe SC (09:08)
[2024-09-08] MEDS: Spironolactone 25 MG Tablet PO (09:09)
[2024-09-08] MEDS: Losartan Potassium 25 MG Tablet PO (09:09)
[2024-09-08] MEDS: Furosemide 40 MG Tablet PO (09:13)
[2024-09-08] MEDS: levoFLOXacin IV 750 MG/150 ML BAG 100 MG IV (09:13)
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
--- NOTE | 2024-09-08 10:53 | CASEMGMT ---
RN ZORA Assessment Face to Face with patient for initial transition planning/care coordination assessment. RN ZORA introduced self and role at [facility], pt voices understanding. Pt is A&Ox4 and is resting comfortably in bed and is calm. Care providers, pharmacy, and demographics verified. LACE Strata:3 PCP: Chitra Scott Specialists: [place] (Cardio), [facility] Preferred Pharmacy: [facility] Insurance: [employer] [facility] Prescription Benefit: Yes LNOK: Laura Mirza (SO), Daniele Ku (Son) Living Arrangements: Pt lives with his SO in a mobile home with 5 steps to enter ADLs/IADLs: Ind Transportation: Self, SO DME: Home oxygen through [employer]. Verified current order states 4L cont and 6L @ HS through NIV. Pt states that he has a concentrator, portable tanks, NIV, and a pulse ox. Pt also has a cane, FWW, and W/C. HHC/SNF: History with [facility] HH. Reports SNF history but cannot recall the name of the facility. Pt states that he is still active with Palliative Care. EMail sent to [facility] to notify them of pt admission and DC plan. Pt?s goal: Home Plan: Home with pt SO. 6-click is 23. Pt denies the need for HHC, SNF, OP Tx, CCN or Pt Link. Pt states that he would like to continue being seen by Palliative. Pt denies further needs at this time. CM to follow for increased oxygen demands. Report given to CHIEF LEGAL OFFICER CM. Yoon Fontenot RN, CM
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
--- NOTE | 2024-09-08 14:00 | CASEMGMT ---
Patient has order for discharge. Patient discharging on Eliquis. FINA BLAKELY called [facility] and copay is $47. FINA BLAKELY in to discuss with patient. Patient states he has used savings card in the past and states he can afford medication. will bring portable tank from home. Patient had no further questions or concerns.
--- NOTE | 2024-09-08 15:47 | CHAPLAIN ---
Type of Pastoral Visit ___ Initial Visit ___ Follow-up Visit ___ On-call Visit ___ General Patient Visit ___ Spiritual Assessment ___ Family Conference ___ Bereavement ___ Rapid Response ___ Code Blue ___ Other (describe below) Pastoral Care Referral From ___ Patient ___ Family ___ Nurse ___ Physician ___ Technology Coach ___ Ecg Technician ___ Other (describe below) Sacrament/Intervention ___ Active listening ___ Anointing ___ Cheondoism ___ Bereavement ___ Communion ___ [place] exploration ___ ___ Life review ___ Prayer ___ Reconciliation ___ Sacrament of Sick ___ Supportive presence ___ Wedding ___ Other (describe below) Pastoral Comments attempted a visit twice with this patient; pt is sleeping with a bi pap machine and was not disturbed for a visit;
== END 2024-09-08 15:54 | disposition home or self-care (01) | DRG 189 ==
LOC: ED 16:33 → PCU 18:01
PROVIDERS: Admitting Provider Internal Medicine; Emergency Provider Emergency Medicine; PCP Nurse Practitioner Family; Visit Provider Internal Medicine
DX: J96.22 Acute and chronic respiratory failure with hypercapnia (principal); J44.1 Chronic obstructive pulmonary disease with (acute) exacerbation; C34.11 Malignant neoplasm of upper lobe, right bronchus or lung; I50.32 Chronic diastolic (congestive) heart failure; Z68.41 Body mass index [BMI] 40.0-44.9, adult; I11.0 Hypertensive heart disease with heart failure; F32.A Depression, unspecified; E66.01 Morbid (severe) obesity due to excess calories; F17.210 Nicotine dependence, cigarettes, uncomplicated; G47.33 Obstructive sleep apnea (adult) (pediatric); E78.5 Hyperlipidemia, unspecified; T20.20XD Burn of second degree of head, face, and neck, unspecified site, subsequent encounter; Z79.51 Long term (current) use of inhaled steroids; Z79.899 Other long term (current) drug therapy; Z86.718 Personal history of other venous thrombosis and embolism; Z86.711 Personal history of pulmonary embolism; X58.XXXD Exposure to other specified factors, subsequent encounter
CPT/HCPCS: 36415; 36600; 71045; 80048; 82803; 83735; 83880; 84484; 85025; 85610; 87631; 93005; 94002; 94003; 94640; 94762; 99283; 99406; A4216

== ENCOUNTER → 2024-09-16 | Outpatient (CLI) | payer MEDICARE, SELFPAY ==
--- NOTE | 2024-09-16 15:31 | MRI_ITS ---
STUDY: MRI BRAIN WITH AND WITHOUT CONTRAST REASON FOR EXAM: Male, 53 years old. 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 IV Yes Clariscan was administered for the contrast portion of the examination. COMPARISON: Head CT dated May 09, 2023 FINDINGS: There is mild cerebral atrophy with widening of the extra-axial spaces and ventricular dilatation. There are multiple white matter hyperintensities, distributed throughout the deep white matter tracts of the cerebral hemispheres, consistent with moderate chronic white matter ischemic changes. There is no evidence for recent intracranial ischemia or other cause of cytotoxic edema on diffusion weighted imaging (DWI). Normal T2* images of the brain without demonstrated susceptibility artifact. There is no demonstrated hemosiderin stain. There are no demyelinating plagues of the supratentorial brain, brainstem or cerebellum. There are no findings suspicious for multiple sclerosis (MS). Normal bilateral basal ganglia. Normal thalami. There is no extra-axial fluid accumulation. Normal flow voids within the major intracranial circulation suggesting patency by spin echo criteria. Normal venous enhancement. There is no enhancing intra-axial or extra-axial abnormality. There are no primary or metastatic enhancing lesions of the brain parenchyma. No abnormal thickening or enhancement of meninges or dura is seen. No skull lesions are present on the current study. No vasogenic edema or midline shift or hydrocephalus is present. Normal sella turcica, pituitary gland, infundibular stalk, optic chiasm and hypothalamus. Normal tectal plate and pineal gland. Normal midbrain, dannielle and medulla. Normal cerebellum. Normal basal cisterns. Normal bilateral temporal bones. Normal bilateral internal auditory canals. No demonstrated orbital abnormality, within the constraints of a routine brain study. Normal visualized paranasal sinuses. Normal calvarium and skull base. Normal visualized soft tissue structures. Normal visualized upper cervical spine. MRI/Brain W/WO Contrast IMPRESSION: 1. Involutional and chronic ischemic changes of the brain, as described above. 2. There are no primary or metastatic enhancing lesions of the brain parenchyma. No abnormal thickening or enhancement of meninges or dura is seen. No skull lesions are present on the current study. No vasogenic edema or midline shift or hydrocephalus is present. Electronically Signed: Grant Dangelo MD at 15:46 EDT ,
== END | disposition home or self-care (01) ==
LOC: MRI 15:28
PROVIDERS: PCP Nurse Practitioner Family; Referring Provider Internal Medicine Hematology & Oncology; Visit Provider Internal Medicine Hematology & Oncology
DX: C34.91 Malignant neoplasm of unspecified part of right bronchus or lung (principal)
CPT/HCPCS: 70553; A9575

== ENCOUNTER → 2025-01-07 | Outpatient (CLI) | payer MEDICARE, SELFPAY ==
--- NOTE | 2025-01-07 14:02 | CT_ITS ---
PROCEDURE: CHEST WITHOUT CONTRAST REASON FOR EXAM: History of lung cancer. Post radiation. TECHNIQUE: Chest CT without contrast. Multiple axial tomographic images were obtained. Coronal and sagittal reconstruction was obtained as well. COMPARISON: Comparison is made with prior study dated July 10, 2024. FINDINGS: Hardware: None. Lymph nodes: Stable small mediastinal lymph nodes. Heart and Vasculature: Normal heart size. No pericardial effusion. Thoracic aorta and pulmonary arteries have normal contours; noncontrast technique limits evaluation. Coronary Artery Calcifications: Present Lungs and Airways: Persistent 2 cm spiculated nodule in the posterior aspect of the right upper lobe. This has decreased slightly in size. Stable emphysematous changes. Pleura: No pleural effusion. No pneumothorax. Upper Abdomen: Visualized portions of the upper abdominal viscera are unremarkable. Bones: Degenerative changes of the thoracic spine. Old left rib fractures. CT/Chest without Contrast IMPRESSION: Slight interval decrease in size of the spiculated nodule in the posterior aspe ct of the right upper lobe. One or more dose reduction techniques were used (e.g., Automated exposure contr ol, adjustment of the mA and/or kV according to patient size, use of iterative reconstruction technique). Reading Location: [place] [id number]
== END | disposition home or self-care (01) ==
LOC: CT 14:01
PROVIDERS: PCP Nurse Practitioner Family; Referring Provider Student in an Organized Health Care Education/Training Program; Visit Provider Student in an Organized Health Care Education/Training Program
DX: C34.91 Malignant neoplasm of unspecified part of right bronchus or lung (principal)
CPT/HCPCS: 71250

== ENCOUNTER 2025-04-07 10:50 | Inpatient (IN) | payer MEDICARE, SELFPAY ==
[2025-04-07] VITALS (16 sets, daily range): BP systolic 114–157; BP diastolic 57–94; PULSE 69–110; RESP 12–40; TEMP 36.4–36.9; O2SAT 87–95; BMI 45.1; BMI 44.0
--- NOTE | 2025-04-07 11:06 | EKG12_ITS ---
Test Reason : SOB Blood Pressure : */* mmHG Vent. Rate : 78 BPM Atrial Rate : 78 BPM P-R Int : 152 ms QRS Dur : 138 ms QT Int : 386 ms P-R-T Axes : 71 93 54 degrees QTcB Int : 440 ms Normal sinus rhythm Right bundle branch block Abnormal ECG Confirmed by Yobani Lomeli ([id number]), staff editor JYA SANTORO ([id number]) on 04/09/2025 9:56:49 AM Referred By: ES/AR Confirmed By: Yobani Lomeli
--- NOTE | 2025-04-07 11:08 | ED.VIS.DYS ---
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 He states it is that time of year. He states that he usually wears 4 L of oxygen at home and BiPAP at night. Over the last few days has had increased difficulty breathing. He is states that he is supposed to be taking Lasix, but has not picked up the prescription from the pharmacy. Per EMS, they had to increase his nasal cannula oxygen to 5 L. He states that he has had increased swelling and increased difficulty breathing as well. [facility] Medical History Trimalleolar fracture Wears glasses Hearing loss, right Anxiety Depression Sleep apnea DVT (deep venous thrombosis) Acute and chronic respiratory failure with hypercapnia Anxiety and depression Pulmonary embolism Obesity hypoventilation syndrome Congestive heart failure Blood disorder Uses wheelchair Former smoker BiPAP (biphasic positive airway pressure) dependence On home oxygen therapy COPD (chronic obstructive pulmonary disease) History of pain when walking History of edema Hypertension History of echocardiogram Cardiology follow-up encounter Closed fracture of left tibial plateau Other specified injury of left quadriceps muscle, fascia and tendon, initial encounter Closed fracture dislocation of joint of left lower extremity Severe persistent asthma Incarcerated umbilical hernia Stage 4 very severe COPD by GOLD classification LAYLA (obstructive sleep apnea) Chronic hypoxemic respiratory failure Seasonal allergies HTN (hypertension) Obesities, morbid Tobacco dependence Home Medications ?Medication ?Instructions ?Recorded ?Last Taken ?Type spironolactone 25 mg tablet 25 mg PO BID FLUID RETENTION/BLOOD 12/02/15 04/07/25 History PRESSURE cyanocobalamin (vitamin B-12) 500 500 mcg PO DAILY SUPPLEMENT 11/08/21 04/07/25 History mcg tablet sertraline 100 mg tablet 100 mg PO DAILY DEPRESSION 01/23/22 04/07/25 History montelukast 10 mg tablet 10 mg PO QPM COPD #30 tabs 06/30/22 04/06/25 Rx (Singulair) torsemide 20 mg tablet 20 mg PO BID FLUID RETENTION #60 11/08/22 04/07/25 Rx tabs furosemide 40 mg tablet 40 mg PO DAILY PRN FLUID RETENTION 01/01/23 09/05/24 History albuterol sulfate 90 mcg/actuation 2 puff inhalation Q4H PRN 05/23/23 09/05/24 Rx aerosol inhaler (Ventolin HFA) shortness of breath or wheezing #18 grams metoprolol tartrate 50 mg tablet 50 mg PO BID BLOOD PRESSURE 06/10/23 04/07/25 History cholecalciferol (vitamin D3) 125 125 mcg PO QODAY SUPPLEMENT 08/05/23 04/07/25 History mcg (5,000 unit) disintegrating tablet gabapentin 100 mg capsule 100 mg PO QHS NERVE PAIN 10/24/23 04/06/25 History fluticasone propionate 50 2 spray intranasal DAILY PRN 12/18/23 09/05/24 History mcg/actuation nasal seasonal allergies spray,suspension losartan 25 mg tablet 25 mg PO DAILY blood pressure #30 01/25/24 04/07/25 Rx tabs rosuvastatin 5 mg tablet 5 mg PO QHS 04/27/24 04/06/25 History albuterol sulfate 2.5 mg/3 mL 2.5 mg (3 mL) inhalation Q4H PRN 05/01/24 09/05/24 Rx (0.083 %) solution for nebulization shortness of breath or wheezing #360 mL bupropion HCl 150 mg tablet,12 hr 150 mg PO BID mental health 06/05/24 04/07/25 History sustained-release cetirizine 10 mg tablet 10 mg PO DAILY allergies #90 tabs 06/05/24 04/07/25 Rx ipratropium 0.5 mg-albuterol 3 mg 3 ml continuous nebulization Q6H 06/05/24 09/05/24 Rx (2.5 mg base)/3 mL nebulization PRN shortness of breath or soln wheezing #180 mL dupilumab 300 mg/2 mL subcutaneous 300 mg subcut Q14D skin 08/13/24 04/01/25 History pen injector (Dupixent) loratadine 10 mg tablet 10 mg PO DAILY allergies 09/06/24 04/07/25 History (Allerclear) acetaminophen 325 mg tablet 325 mg PO Q8 PRN pain 01/12/25 Unknown History (Tylenol) apixaban 5 mg tablet 5 mg PO BID #60 tabs 02/26/25 04/07/25 Rx budesonide-formoterol HFA 160 2 puff inhalation BID SHORTNESS OF 02/26/25 04/06/25 Rx mcg-4.5 mcg/actuation aerosol BREATH #10.2 grams inhaler (Symbicort) guaifenesin 1,200 mg tablet, 1,200 mg PO BID PRN congestion 04/07/25 04/06/25 History extended release 12 hr (Mucus Relief ER) Allergy/AdvReac Type Severity Reaction Status Date / Time clarithromycin (From Biaxin) Allergy Hives Verified 04/07/25 10:56 Penicillins Allergy Hives Verified 04/07/25 10:56 Family History Mother Diabetes Breast cancer Heart disease Hypertension COPD (chronic obstructive pulmonary disease) Asthma Father Hypertension CVA (cerebral vascular accident) Edema Respiratory disease Sister COPD (chronic obstructive pulmonary disease) Surgical History History of ankle surgery History of knee surgery History of appendectomy S/P foot surgery, left History of hernia repair (~08/2018) History of tooth extraction History of tonsillectomy Hx of cardiac cath Social History household members: spouse Smoking Status: Current some day smoker tobacco type: cigarettes Tobacco: How many years used: 35 how long ago did patient quit smoking: Patient admits to smoking 1 cigarette to 2 cigarettes weekly second hand exposure: Yes quit status: has quit before alcohol intake: never substance use type: does not use ROS ROS ED ROS Narrative Review of systems positive for increased swelling, and increased difficulty breathing. Reported low pulse ox. Positive fatigue and drowsiness with decreased mental status. EXAM Physical Exam Narrative Exam Narrative: Afebrile. Vital signs noted. Nontoxic-appearing. Cardiovascular examination reveals a regular rate and rhythm. Mild tachypnea. Decreased breath sounds bilaterally. Positive shallow breathing. Abdomen soft, nontender, and obese. No guarding or rebound. Neurological examination shows him to be awake, alert, and answering questions currently. Const Vital Signs: 04/07/25 10:50 04/07/25 10:51 04/07/25 10:56 Temperature 98.2 F 98.2 F Temperature Source Oral Oral Pulse Rate 82 76 Respiratory Rate 20 H 40 H Respiratory Effort Short of Breath Respiratory Depth Shallow Respiratory Pattern Normal Blood Pressure 157/94 H 157/94 H Blood Pressure Mean 115 115 Pulse Ox 95 95 Oxygen Delivery Method Nasal Cannula Nasal Cannula Oxygen Flow Rate (L/min) 3 Fraction of Inspired Oxygen (FIO2) 04/07/25 11:11 04/07/25 11:28 04/07/25 11:29 Temperature Temperature Source Pulse Rate 89 89 Respiratory Rate 23 H 16 Respiratory Effort Respiratory Depth Respiratory Pattern Blood Pressure Blood Pressure Mean Pulse Ox 92 Oxygen Delivery Method Nasal Cannula Oxygen Flow Rate (L/min) Fraction of Inspired Oxygen (FIO2) 30 04/07/25 11:56 04/07/25 13:00 04/07/25 13:16 Temperature 98.4 F 98.4 F Temperature Source Temporal Temporal Pulse Rate 78 79 Respiratory Rate 20 H 20 H 16 Respiratory Effort Respiratory Depth Respiratory Pattern Blood Pressure 154/88 H 114/57 L Blood Pressure Mean 110 76 Pulse Ox 95 95 Oxygen Delivery Method Oxygen Flow Rate (L/min) Fraction of Inspired Oxygen (FIO2) 30 MDM MDM MDM Narrative Medical decision making narrative: Differential diagnosis includes but not limited to CHF exacerbation versus COPD exacerbation versus combination. Patient has a history of CO2 retention. Given his slight drowsiness and mild hypoxia, he will be started on BiPAP, and additionally VBG will be obtained to check for CO2 retention. I reviewed the patient's prior records and he has been admitted multiple times for mental status change and CO2 retention and his acute on chronic respiratory failure hypercapnia and hypoxia. EKG was obtained interpreted by myself independently as normal sinus rhythm at 78 bpm with a right bundle branch block but no acute ST changes. No STEMI. No significant change from EKG in August 2024. I reviewed his laboratory work and he has an elevated white count of 14.71 compared to prior labs almost a chronic leukocytosis. Hemoglobin normal at 13.3 with hematocrit 46.3, platelet count normal at 232. Venous blood gas does show pH of 7.25 with PCO2 high at 112. He was placed on BiPAP. Chest x-ray in 1 view interpreted by myself independently shows no evidence of consolidation or pneumothorax. I reviewed the radiology report which confirms my independent interpretation and comments on pulmonary hypertension. He also has cardiomegaly. The remainder of his laboratories are pending. However, given his acute on chronic respiratory failure with hypercapnia, patient will be discussed with the hospitalist for admission to the ICU. Critical care time 31 minutes. Of note, repeat VBG shows that he has a CO2 of 114, no significant change if not slight increase to his CO2 retention. Respiratory therapist will make adjustments. I reviewed his BMP and his glucose is 151 with a normal anion gap of 6, BUN 20, creatinine 0.60, CO2 elevated 42.9 but when compared to prior labs it is usually greater than 45. Potassium slightly elevated at 5.5. Patient started on ED hyperkalemia protocol. Once again and review of his EKG, I see no acute EKG changes which would require calcium. Given his elevated potassium, and acute on chronic respiratory failure, patient discussed with Dr. Alyssa Escobar for admission to the PCU. Patient is in stable condition. History & Record Review Discussion w/independent historian: Patient Lab Data Attestation: I reviewed the patient's lab results. Labs: Laboratory Results - last 24 hr 04/07/25 04/07/25 11:09 13:28 WBC 14.7 H RBC 4.32 L Hgb 13.3 Hct 46.3 MCV 107.2 H MCH 30.8 MCHC 28.7 L RDW Std Deviation 52.2 H RDW Coeff of Valerie 13.1 Plt Count 232 MPV 9.9 Immature Gran % (Auto) 1.200 H Neut % (Auto) 91.4 H Lymph % (Auto) 5.2 L Ward % (Auto) 2.0 Eos % (Auto) 0.0 Baso % (Auto) 0.2 Absolute Neuts (auto) 13.4 H Absolute Lymphs (auto) 0.76 L Nucleated RBC % 0 Sodium 140 Potassium 5.5 H Chloride 91 L Carbon Dioxide 42.9 H Anion Gap 6 BUN 20 H Creatinine 0.60 L Estim Creat Clear Calc 207.98 Est GFR (MDRD) Non-Af 113 BUN/Creatinine Ratio 33.3 H Glucose 151 H Calcium 9.8 NT pro BNP II 509 POC Glucose 124 H ABG Data ABG results: ABG 04/07/25 04/07/25 11:18 13:03 Specimen Type PAPITO PAPITO Sample Site Not entered Not entered O2 % 3.0 30.0 VBG pH 7.25 L 7.23 L VBG pO2 27 33 VBG HCO3 49 H 48 H VBG O2 Sat (Calc) 35 L 46 L VBG Base Excess 22 H 21 H POC Mix VBG pCO2 Pt Tmp 112.2 H* 114.1 H* O2 Delivery Device Cannula Not entered Crit Call To/Read Back Yes Yes Blood Gas Notified Whom ar Blood Gas Notified Time 11:20:00 13:05:12 Radiography Chest X-Ray - ED: 1 View, Read by ED Physician, Read by Radiologist, Chronic Changes and Cardiomegaly Diagnostic Testing: Clinical Impression(s) from Imaging Studies Chest X-Ray 04/07/25 11:23 IMPRESSION: Hyperinflation. Findings suggestive of pulmonary hypertension. Mild cardiac enlargement. Reading Location: [id number] Management Discussion w/another healthcare provider: Hospitalist Discharge Plan Dx/Rx/DC Orders Clinical Impression: Acute exacerbation of chronic obstructive pulmonary disease, SOB (shortness of breath), Hyperkalemia Disposition Disposition: Acute Care [facility]
[2025-04-07 11:23] LABS: Blood Gas Specimen Type VEN; O2 Delivery Device Cannula; SITE Not entered; Time Given 11:20:00; VBG BASE EXCESS 22 mmol/L (-1.0-3.5); VBG Bicarbonate 49 mmol/L (22-26); VBG PO2 27 mmHg (25-40); VBG SO2 35 % (50-70); VBG pCO2 112.2 mmHg (41-51); VBG pH 7.25 (7.32-7.42)
--- NOTE | 2025-04-07 11:23 | RAD_ITS ---
PROCEDURE: CHEST 1 VIEW (PORTABLE) 04/07/2025 REASON FOR EXAM: SHORTNESS OF BREATH TECHNIQUE: Frontal view of the chest. COMPARISON: Prior study dated September 06, 2024. FINDINGS: Hardware: EKG electrodes are seen. Heart: Heart size is mildly enlarged. Lungs: Hyperinflation. Prominence of the central pulmonary arteries suggestive of pulmonary hypertension. The previously seen nodular density in the right upper lobe is not well seen at this time. Bones: Degenerative changes are identified within the thoracic spine. Other: Possible hiatal hernia. RAD/Chest 1 View (Portable) IMPRESSION: Hyperinflation. Findings suggestive of pulmonary hypertension. Mild cardiac enlargement. Reading Location: [facility]
[2025-04-07] MEDS: Ipratropium/Albuterol Sulfate 3 ML AMPUL.NEB INHALATION ×2 (11:29→19:08)
[2025-04-07] MEDS: MethylPREDNISolone 125 MG/2 ML Vial IV (11:29)
[2025-04-07 11:30] LABS: Absolute Lymphocyte Count 0.76 X10^3/uL (0.83-4.51); Absolute Neutrophil Count 13.4 X10^3/uL (2.0-7.7); Basophil# 0.03 X10^3/uL; Basophil% 0.2 % (0-1); Hematocrit 46.3 % (40-54); Hemoglobin 13.3 g/dL (13.0-16.5); Lymphocyte # 0.76 X10^3/ul (0.83-4.51); Lymphocyte % 5.2 % (19-41); Mean Corp Hgb Conc 28.7 g/dL (32-36); Mean Corpuscular Hgb 30.8 pg (27.0-32.0); Mean Corpuscular Volume 107.2 fL (80-94); Mean Platelet Vol. 9.9 fl (6.2-12.0); NRBC Flagged by Analyzer 0 % (0-5); Neutrophil # 13.43 X10^3/uL (2.7-7.7); Neutrophil % 91.4 % (47-70); Platelet Count 232 K/mm3 (150-450); RBC Distribution Width CV 13.1 % (11.6-14.6); RBC Distribution Width SD 52.2 fl (35.1-43.9); Red Blood Count 4.32 M/mm3 (4.6-6.2); White Blood Count 14.7 K/mm3 (4.4-11.0)
[2025-04-07 12:03] LABS: Anion Gap 6 (5-15); BUN 20 mg/dL (4-19); BUN/Creat Ratio 33.3 RATIO (10-20); Calcium,Total 9.8 mg/dL (7.6-11.0); Carbon Dioxide 42.9 mmol/L (21.0-32.0); Chloride 91 mmol/L (98-108); EST Glomerular Filtration Rate 113 (>60); Estimated Creatinine Clearance 207.98 ml/min (50-250); Glucose 151 mg/dL (70-99); Potassium 5.5 mmol/L (3.3-5.1); Sodium Level 140 mmol/L (133-145)
[2025-04-07 13:00] LABS: Pro- Brain NATRIURETIC PEPTIDE 509 pg/mL (<=900)
[2025-04-07 13:07] LABS: Blood Gas Specimen Type VEN; O2 Delivery Device Not entered; SITE Not entered; Time Given 13:05:12; VBG BASE EXCESS 21 mmol/L (-1.0-3.5); VBG Bicarbonate 48 mmol/L (22-26); VBG PO2 33 mmHg (25-40); VBG SO2 46 % (50-70); VBG pCO2 114.1 mmHg (41-51); VBG pH 7.23 (7.32-7.42)
--- NOTE | 2025-04-07 13:22 | CPS ---
Critical value on ABG result venous to Alisa FORECLOSURE PARALEGAL, ER therapist, who informed Dr Marti of result.
--- NOTE | 2025-04-07 13:30 | PCM.HP.STD ---
HPI - General General Date of Admission: 04/07/25 Date of Service: 04/07/25 Chief Complaint: Dyspnea, increased oxygen requirements. 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 Bojorquez at [facility] and [facility] with supposedly recent initiation of Lasix however he has not picked these up yet and given worsening dyspnea prompted EMS called noting that patient required 5 L instead of his baseline 4 L with increased edema, orthopnea and possible weight gain prompting eventual ED evaluation. From review of weights patient last weight previously 317 pounds now increased to 332 pounds upon current presentation. He also notes he has accidentally missed 2 days of his diuretic therapy. He also reports that at least over the last month he has actually eaten less thus he would not expect his weight gain to be from again excessive food intake. Workup in the ED included T98.2 Oral, heart rate 82, BP 157/94, respiratory rate 20, initially on nasal cannula eventually transition to BiPAP with 30% FiO2 with most recent repeat vitals T98.4, heart 79, BP 114/57, respiratory rate 20, 95% on room air, CBC with WBC 14.7, he 1 13.3, platelet 232 with left shift and lymphopenia, VBG with pH 7.23, bicarb 48, VBG O2 46%, POC mixed VBG pCO2 114.1, BMP potassium 5.5, chloride 91, carbon oxide 42.9, BUN/creatinine 20/0.60, GFR 113, glucose 151, NT proBNP II 509, chest x-ray with hyperinflation with findings suggestive of pulmonary hypertension with mild cardiac enlargement with no acute cardiopulmonary finding, EKG with sinus rhythm with right bundle branch block with no acute evidence of ischemia similar to previous. In the ED patient missed her DuoNeb therapy and Solu-Medrol 125 mg IV x 1 in addition to hyperkalemic protocol. [facility] Medical History Trimalleolar fracture Wears glasses Hearing loss, right Anxiety Depression Sleep apnea DVT (deep venous thrombosis) Acute and chronic respiratory failure with hypercapnia Anxiety and depression Pulmonary embolism Obesity hypoventilation syndrome Congestive heart failure Blood disorder Uses wheelchair Former smoker BiPAP (biphasic positive airway pressure) dependence On home oxygen therapy COPD (chronic obstructive pulmonary disease) History of pain when walking History of edema Hypertension History of echocardiogram Cardiology follow-up encounter Closed fracture of left tibial plateau Other specified injury of left quadriceps muscle, fascia and tendon, initial encounter Closed fracture dislocation of joint of left lower extremity Severe persistent asthma Incarcerated umbilical hernia Stage 4 very severe COPD by GOLD classification LAYLA (obstructive sleep apnea) Chronic hypoxemic respiratory failure Seasonal allergies HTN (hypertension) Obesities, morbid Tobacco dependence Home Medications ?Medication ?Instructions ?Recorded ?Last Taken ?Type spironolactone 25 mg tablet 25 mg PO BID FLUID RETENTION/BLOOD 12/02/15 04/07/25 History PRESSURE cyanocobalamin (vitamin B-12) 500 500 mcg PO DAILY SUPPLEMENT 11/08/21 04/07/25 History mcg tablet sertraline 100 mg tablet 100 mg PO DAILY DEPRESSION 01/23/22 04/07/25 History montelukast 10 mg tablet 10 mg PO QPM COPD #30 tabs 06/30/22 04/06/25 Rx (Singulair) torsemide 20 mg tablet 20 mg PO BID FLUID RETENTION #60 11/08/22 04/07/25 Rx tabs furosemide 40 mg tablet 40 mg PO DAILY PRN FLUID RETENTION 01/01/23 09/05/24 History albuterol sulfate 90 mcg/actuation 2 puff inhalation Q4H PRN 05/23/23 09/05/24 Rx aerosol inhaler (Ventolin HFA) shortness of breath or wheezing #18 grams metoprolol tartrate 50 mg tablet 50 mg PO BID BLOOD PRESSURE 06/10/23 04/07/25 History cholecalciferol (vitamin D3) 125 125 mcg PO QODAY SUPPLEMENT 08/05/23 04/07/25 History mcg (5,000 unit) disintegrating tablet gabapentin 100 mg capsule 100 mg PO QHS NERVE PAIN 10/24/23 04/06/25 History fluticasone propionate 50 2 spray intranasal DAILY PRN 12/18/23 09/05/24 History mcg/actuation nasal seasonal allergies spray,suspension losartan 25 mg tablet 25 mg PO DAILY blood pressure #30 01/25/24 04/07/25 Rx tabs rosuvastatin 5 mg tablet 5 mg PO QHS 04/27/24 04/06/25 History albuterol sulfate 2.5 mg/3 mL 2.5 mg (3 mL) inhalation Q4H PRN 05/01/24 09/05/24 Rx (0.083 %) solution for nebulization shortness of breath or wheezing #360 mL bupropion HCl 150 mg tablet,12 hr 150 mg PO BID mental health 06/05/24 04/07/25 History sustained-release cetirizine 10 mg tablet 10 mg PO DAILY allergies #90 tabs 06/05/24 04/07/25 Rx ipratropium 0.5 mg-albuterol 3 mg 3 ml continuous nebulization Q6H 06/05/24 09/05/24 Rx (2.5 mg base)/3 mL nebulization PRN shortness of breath or soln wheezing #180 mL dupilumab 300 mg/2 mL subcutaneous 300 mg subcut Q14D skin 08/13/24 04/01/25 History pen injector (Dupixent) loratadine 10 mg tablet 10 mg PO DAILY allergies 09/06/24 04/07/25 History (Allerclear) acetaminophen 325 mg tablet 325 mg PO Q8 PRN pain 01/12/25 Unknown History (Tylenol) apixaban 5 mg tablet 5 mg PO BID #60 tabs 02/26/25 04/07/25 Rx budesonide-formoterol HFA 160 2 puff inhalation BID SHORTNESS OF 02/26/25 04/06/25 Rx mcg-4.5 mcg/actuation aerosol BREATH #10.2 grams inhaler (Symbicort) guaifenesin 1,200 mg tablet, 1,200 mg PO BID PRN congestion 04/07/25 04/06/25 History extended release 12 hr (Mucus Relief ER) Allergy/AdvReac Type Severity Reaction Status Date / Time clarithromycin (From Biaxin) Allergy Hives Verified 04/07/25 10:56 Penicillins Allergy Hives Verified 04/07/25 10:56 Family History Mother Diabetes Breast cancer Heart disease Hypertension COPD (chronic obstructive pulmonary disease) Asthma Father Hypertension CVA (cerebral vascular accident) Edema Respiratory disease Sister COPD (chronic obstructive pulmonary disease) Surgical History History of ankle surgery History of knee surgery History of appendectomy S/P foot surgery, left History of hernia repair (~08/2018) History of tooth extraction History of tonsillectomy Hx of cardiac cath Social History household members: spouse Smoking Status: Current some day smoker tobacco type: cigarettes Tobacco: How many years used: 35 how long ago did patient quit smoking: Patient admits to smoking 1 cigarette to 2 cigarettes weekly second hand exposure: Yes quit status: has quit before alcohol intake: never substance use type: does not use ROS ROS Narrative Admission Review of Systems: CONSTITUTIONAL: No weight loss, fever, chills, + weakness or fatigue. HEENT: Eyes: No visual loss, blurred vision, double vision or yellow sclerae. Ears, Nose, Throat: No hearing loss, sneezing, congestion, runny nose or sore throat. SKIN: No rash or itching, lesions, wounds except + occasional stage ecchymoses, abrasion, bilateral lower extremity venous stasis skin changes. CARDIOVASCULAR: + Chest tightness, orthopnea, weight gain, increased distal lower extremity edema. No chest pain, palpitations, syncopal events. RESPIRATORY: + Dyspnea, not markedly productive cough, wheezing. No hemoptysis. GASTROINTESTINAL: No anorexia, nausea, vomiting or diarrhea, abdominal pain, melena, BRBPR. GENITOURINARY: No dysuria, frequency, urgency or retention. NEUROLOGICAL: No headache, dizziness, syncope, paralysis, ataxia, numbness or tingling in the extremities, focal weakness, change in bowel or bladder control, seizure. MUSCULOSKELETAL: + muscle, back pain, joint pain or stiffness. HEMATOLOGIC: No anemia, easy bleeding/bruising. LYMPHATICS: No enlarged nodes. No history of splenectomy. PSYCHIATRIC: + History of anxiety and depression. ENDOCRINOLOGIC: No reports of sweating, cold or heat intolerance. No polyuria or polydipsia. ALLERGIES: + History of asthma, allergic rhinitis, hives. Vital Signs Vital Signs Vital Signs: 04/07/25 10:50 04/07/25 10:51 04/07/25 10:56 Temperature 98.2 F 98.2 F Temperature Source Oral Oral Pulse Rate 82 76 Respiratory Rate 20 H 40 H Respiratory Effort Short of Breath Respiratory Depth Shallow Respiratory Pattern Normal Blood Pressure 157/94 H 157/94 H Blood Pressure Mean 115 115 Pulse Ox 95 95 Oxygen Delivery Method Nasal Cannula Nasal Cannula Oxygen Flow Rate (L/min) 3 Fraction of Inspired Oxygen (FIO2) 04/07/25 11:11 04/07/25 11:28 04/07/25 11:29 Temperature Temperature Source Pulse Rate 89 89 Respiratory Rate 23 H 16 Respiratory Effort Respiratory Depth Respiratory Pattern Blood Pressure Blood Pressure Mean Pulse Ox 92 Oxygen Delivery Method Nasal Cannula Oxygen Flow Rate (L/min) Fraction of Inspired Oxygen (FIO2) 30 04/07/25 11:56 04/07/25 13:00 04/07/25 13:16 Temperature 98.4 F 98.4 F Temperature Source Temporal Temporal Pulse Rate 78 79 Respiratory Rate 20 H 20 H 16 Respiratory Effort Respiratory Depth Respiratory Pattern Blood Pressure 154/88 H 114/57 L Blood Pressure Mean 110 76 Pulse Ox 95 95 Oxygen Delivery Method Oxygen Flow Rate (L/min) Fraction of Inspired Oxygen (FIO2) 30 Weight Weight: 332 lb 14.368 oz Body Mass Index (BMI) 45.1 Physical Exam Narrative Physical Examination: General: Awake, alert, oriented x 3 and cooperative, seated upright in bed in the ED bed, BiPAP in place, fatigued appearing, can answer some questions but has to stop. Skin: Normal color, normal turgor, no icterus, no cyanosis except occasional stage ecchymoses, abrasion, bilateral lower extremity stasis skin changes. HEENT: AT/NC, EOMI, PERRLA, mildly dry MM with BiPAP in place, difficult to discern carotid bruit given referred sound from BiPAP, difficult to discern JVD assessment secondary to thickened neck. Lungs: Significantly diminished, greater bases, BiPAP in place, mildly increased respiratory rate with some conversational dyspnea/fatigue but improving he notes since initial ED arrival, distant occasional expiratory wheeze, no appreciated rales or rhonchi. Heart: Regular rate and rhythm; no gallop, rub audible. Abdomen: Soft, morbidly obese, NTTP, distant BS, difficult to discern distention HSM given habitus. Extremities: No cyanosis, no clubbing, bilateral pedal to proximal blanchard 1-2+ pitting edema. Neurological: Patient awake, alert, oriented as noted, cognitive function intact; pupils equally reactive to light and accommodation, cranial nerves gross normal, moving all 4 extremities, no focal deficits, strength severely globally decreased secondary to acute presentation. Psychiatric: Affect appears fatigued, respiratory status improved since initial ED arrival but still tachypneic with some conversational fatigue/dyspnea on BiPAP, no acute evidence of depressive or anxiety feelings but does have underlying history. Results Lab / Micro Data 04/07/25 11:09 04/07/25 11:09 Labs: Laboratory Results - last 24 hr 04/07/25 11:09: WBC 14.7 H, RBC 4.32 L, Hgb 13.3, Hct 46.3, MCV 107.2 H, MCH 30.8, MCHC 28.7 L, RDW Std Deviation 52.2 H, RDW Coeff of Valerie 13.1, Plt Count 232, MPV 9.9, Immature Gran % (Auto) 1.200 H, Neut % (Auto) 91.4 H, Lymph % (Auto) 5.2 L, Shasta % (Auto) 2.0, Eos % (Auto) 0.0, Baso % (Auto) 0.2, Absolute Neuts (auto) 13.4 H, Absolute Lymphs (auto) 0.76 L, Nucleated RBC % 0, Sodium 140, Potassium 5.5 H, Chloride 91 L, Carbon Dioxide 42.9 H, Anion Gap 6, BUN 20 H, Creatinine 0.60 L, Estim Creat Clear Calc 207.98, Est GFR (MDRD) Non-Af 113, BUN/Creatinine Ratio 33.3 H, Glucose 151 H, Calcium 9.8, NT pro BNP II 509 ABG Data ABG results: ABG 04/07/25 04/07/25 11:18 13:03 Specimen Type PAPITO PAPITO Sample Site Not entered Not entered O2 % 3.0 30.0 VBG pH 7.25 L 7.23 L VBG pO2 27 33 VBG HCO3 49 H 48 H VBG O2 Sat (Calc) 35 L 46 L VBG Base Excess 22 H 21 H POC Mix VBG pCO2 Pt Tmp 112.2 H* 114.1 H* O2 Delivery Device Cannula Not entered Crit Call To/Read Back Yes Yes Blood Gas Notified Whom ar Blood Gas Notified Time 11:20:00 13:05:12 Imaging Radiology Impression Chest X-Ray 04/07/25 11:23 IMPRESSION: Hyperinflation. Findings suggestive of pulmonary hypertension. Mild cardiac enlargement. Reading Location: [id number] Assessment & Plan Assessment/Plan (1) Acute exacerbation of chronic obstructive pulmonary disease: PLAN: Plan The patient is a 54 y/o M w/ PMHx: Morbid obesity, LAYLA on BIPAP, Chronic COPD/Severe Persistent Asthma with Chronic Hypoxic and Hypercarbic Respiratory Failure (4L NC, BIPAP q HS) w/ Allergic rhinitis complicated by Adenocarcinoma of the R upper lobe of the lung (non-small cell) initially noted 07/10/2024 undergoing SBRT with per most recent pulmonary notes plan follow-up 03/[address] chest at that time, Former heavy tobacco use-->1/2 cigarette/week, Hx VTE (DVT, PE) on chronic Eliquis, Anxiety and Depression, HTN, HLD who presents to the [facility] ED on 04/07/25 with history of increased dyspnea 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 Bojorquez at [facility] and Dr[facility] with supposedly recent initiation of Lasix however he has not picked these up yet and given worsening dyspnea prompted EMS called noting that patient required 5 L instead of his baseline 4 L with increased edema, orthopnea and possible weight gain prompting eventual ED evaluation. #1. 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 Additionally, will maintain on cardiac telemetry, obtain cardiac enzyme series, initiate judicious IV lasix diuresis, monitor I/Os, maintain on intake restriction, continue medical therapy, obtain TSH and magnesium level. 04/28/2024 echocardiogram with normal LV size, LV systolic function normal, LVEF 55% thus request repeat. Place snug CORWIN wraps. #2. Hyperkalemia, mild: Initial potassium 5.5, mildly elevated, in the ED initiated on hyperkalemic protocol with 10 unit IV insulin x 1, dextrose amp in addition to DuoNeb therapy as previously noted, continue treatments as noted with repeat potassium level in AM. #3. 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 #4. Hypertension: Continue home regimen including IV Lasix as noted above, metoprolol, losartan, PRN hydralazine. #5. Hyperlipidemia: Will continue patient on statin therapy. FLP in AM. #6. Hx VTE (DVT, PE): Will continue chronic Eliquis regimen. #7. Anxiety and Depression: Will continue patient home bupropion and sertraline home regimen. Encourage continued outpatient follow-up and evaluation as previously arranged. #8. Allergic rhinitis: Will continue patient home loratadine, Singulair, fluticasone home regimen. #9. Morbid Obesity: Weight loss and lifestyle changes encouraged, nutrition consulted. #10. Tobacco Abuse: Encouraged cessation, inpatient consultation per RT, NR if desired. #11. LAYLA: BIPAP continuous currently->wean to q HS. #12. DVT prophylaxis: Continue home Eliquis regimen. #13. CODE status: Patient NICOLEOA is his significant who is present and living will is currently in place. Discussed CODE status at length including difference between FULL code, DNR-CCA and DNR-CC status. Following discussions about the differences in these status, requested Full Code status. Advanced Care Planning Face to Face Time: 16 minutes. Charges/Coding Visit Charges Inpatient E&M: 81055 Init Hosp L3 Procedures Hospitalists Procedures: 14617 Advncd Care Plan 30 Min
[2025-04-07 13:47] LABS: Bedside Glucose 124 mg/dL (74-106)
[2025-04-07] MEDS: Dextrose 10%-Water 250 ML 999 ML IV (14:00)
[2025-04-07] MEDS: Insulin Lispro 10 UNIT in Syringe 0 ML 6 UNIT IV (14:17)
[2025-04-07 14:46] LABS: Magnesium 2.3 mg/dL (1.5-2.2)
[2025-04-07] MEDS: Calcium Gluconate IV 3 GM in Syringe 1 EACH IV (14:58)
[2025-04-07 15:10] LABS: Blood Gas Specimen Type VEN; O2 Delivery Device avaps; SITE Not entered; Time Given 15:06:04; VBG BASE EXCESS 25 mmol/L (-1.0-3.5); VBG Bicarbonate 52 mmol/L (22-26); VBG PO2 21 mmHg (25-40); VBG SO2 24 % (50-70); VBG pCO2 115.6 mmHg (41-51); VBG pH 7.26 (7.32-7.42)
[2025-04-07] MEDS: Furosemide 40 MG/4 ML Vial IV (16:22)
[2025-04-07] MEDS: 0.9% Saline Lock 10 ML Syringe IV ×2 (16:23→21:19)
[2025-04-07 17:05] LABS: Troponin T High Sensitivity 12 ng/L (<=22)
[2025-04-07 17:13] LABS: Procalcitonin 0.03 ng/mL (<=0.10)
[2025-04-07 18:10] LABS: Troponin T High Sens 2 HR 11 ng/L (<=22)
[2025-04-07] MEDS: Budesonide Respules 0.5 MG/2 ML AMPUL.NEB. INHALATION (19:08)
[2025-04-07 20:09] LABS: Troponin T High Sens 4 HR 11 ng/L (<=22)
[2025-04-07] MEDS: APIXABAN 5 MG TABLET PO (21:17)
[2025-04-07] MEDS: Spironolactone 25 MG Tablet PO (21:17)
[2025-04-07] MEDS: Atorvastatin Calcium 10 MG Tablet PO (21:17)
[2025-04-07] MEDS: Gabapentin 100 MG Capsule 200 MG PO (21:17)
[2025-04-07] MEDS: guaiFENesin 1,200 MG Tablet 1200 MG PO (21:17)
[2025-04-07] MEDS: Metoprolol Tartrate 50 MG Tablet PO (21:18)
[2025-04-07] MEDS: Montelukast 10 MG Tablet PO (21:18)
[2025-04-07] MEDS: buPROPion (SR) 150 MG Tablet.SA PO (21:18)
[2025-04-08] VITALS (16 sets, daily range): BP systolic 122–151; BP diastolic 63–94; PULSE 65–89; RESP 12–22; TEMP 36.2–36.7; O2SAT 76–96; BMI 43.2; BMI 44.0
[2025-04-08] MEDS: 0.9% Saline Lock 10 ML Syringe IV (05:44)
[2025-04-08 06:20] LABS: Absolute Lymphocyte Count 0.86 X10^3/uL (0.83-4.51); Absolute Neutrophil Count 12.7 X10^3/uL (2.0-7.7); Basophil# 0.01 X10^3/uL; Basophil% 0.1 % (0-1); Hematocrit 46.5 % (40-54); Hemoglobin 13.8 g/dL (13.0-16.5); Lymphocyte # 0.86 X10^3/ul (0.83-4.51); Lymphocyte % 6.1 % (19-41); Mean Corp Hgb Conc 29.7 g/dL (32-36); Mean Corpuscular Hgb 30.9 pg (27.0-32.0); Mean Corpuscular Volume 104.3 fL (80-94); Mean Platelet Vol. 9.9 fl (6.2-12.0); Monocyte# 0.54 X10^3/uL; Monocyte% 3.8 % (0-10); NRBC Flagged by Analyzer 0 % (0-5); Neutrophil # 12.66 X10^3/uL (2.7-7.7); Platelet Count 202 K/mm3 (150-450); RBC Distribution Width CV 13.1 % (11.6-14.6); RBC Distribution Width SD 50.2 fl (35.1-43.9); Red Blood Count 4.46 M/mm3 (4.6-6.2); White Blood Count 14.2 K/mm3 (4.4-11.0)
[2025-04-08 06:37] LABS: VBG TCO2 > 50 mmol/L (23-33)
[2025-04-08 06:38] LABS: VBG TCO2 > 50 mmol/L (23-33)
[2025-04-08 06:39] LABS: VBG TCO2 > 50 mmol/L (23-33)
[2025-04-08 06:47] LABS: Cholesterol 205 mg/dL (<=200); High Density Lipoprotein 67 mg/dL; Low Density Lipoprotein Calc. 109 mg/dL; Thyroid Stim Hormone (TSH) 0.442 uIU/mL (0.300-4.200); Triglycerides 145 mg/dL; Very Low Density Lipoprotein 29 mg/dL (5-40); cholesterol:hdl ratio screen 3.06
[2025-04-08 06:48] LABS: ALB/GLOB Ratio 1.2 RATIO (0.9-2.4); AST(SGOT) 38 U/L (<=37); Alanine Aminotransfer ALT/SGPT 43 U/L (<=46); Alkaline Phosphatase 96 U/L (40-129); Anion Gap 10 (5-15); BUN 21 mg/dL (4-19); Calcium,Total 9.7 mg/dL (7.6-11.0); Carbon Dioxide 42.2 mmol/L (21.0-32.0); Chloride 86 mmol/L (98-108); Creatinine, Serum 0.57 mg/dL (0.70-1.20); EST Glomerular Filtration Rate 115 (>60); Estimated Creatinine Clearance 213.85 ml/min (50-250); Globulin 3.3 g/dL (2.2-4.2); Glucose 142 mg/dL (70-99); Protein, Total 7.3 g/dL (5.9-8.4); Sodium Level 138 mmol/L (133-145); Total Bilirubin 0.31 mg/dL (0.00-1.30)
[2025-04-08] MEDS: Budesonide Respules 0.5 MG/2 ML AMPUL.NEB. INHALATION ×2 (06:55→20:18)
[2025-04-08] MEDS: Ipratropium/Albuterol Sulfate 3 ML AMPUL.NEB INHALATION ×4 (06:56→20:18)
--- NOTE | 2025-04-08 08:47 | PCM.PN.HOSP ---
Reason for Visit Reason for Visit: Diagnoses Chronic obstructive pulmonary disease with (acute) exacerbation (04/07/25) Objective Data Objective Data Vital Signs: Vital Signs Temp Pulse Resp BP Pulse Ox O2 Del Method O2 Flow Rate 98.1 F 79 18 147/83 H 96 Nasal Cannula 4 04/08/25 05:46 04/08/25 05:46 04/08/25 05:46 04/08/25 05:46 04/08/25 05:46 04/08/25 05:46 04/08/25 05:46 FiO2 30 04/08/25 04:02 Oxygen Flow Rate (L/min) 4 Oxygen Delivery Method Nasal Cannula Weight: 319 lb 3.669 oz Body Mass Index (BMI) 43.2 Intake & Output: Intake and Output for Last 24 Hours 04/06/25 04/07/25 04/08/25 23:59 23:59 23:59 Intake Total 280 / 280 Output Total 1700 / 1700 950 / 950 Balance -1420 / -1420 -950 / -950 Lab / Micro Data 04/08/25 05:47 04/08/25 05:47 Labs: Laboratory Results - last 24 hr 04/07/25 11:09: WBC 14.7 H, RBC 4.32 L, Hgb 13.3, Hct 46.3, MCV 107.2 H, MCH 30.8, MCHC 28.7 L, RDW Std Deviation 52.2 H, RDW Coeff of Valerie 13.1, Plt Count 232, MPV 9.9, Immature Gran % (Auto) 1.200 H, Neut % (Auto) 91.4 H, Lymph % (Auto) 5.2 L, [place] % (Auto) 2.0, Eos % (Auto) 0.0, Baso % (Auto) 0.2, Absolute Neuts (auto) 13.4 H, Absolute Lymphs (auto) 0.76 L, Nucleated RBC % 0, Sodium 140, Potassium 5.5 H, Chloride 91 L, Carbon Dioxide 42.9 H, Anion Gap 6, BUN 20 H, Creatinine 0.60 L, Estim Creat Clear Calc 207.98, Est GFR (MDRD) Non-Af 113, BUN/Creatinine Ratio 33.3 H, Glucose 151 H, Calcium 9.8, Magnesium 2.3 H, NT pro BNP II 509 04/07/25 13:28: POC Glucose 124 H 04/07/25 16:30: Troponin T High Sens 12, Procalcitonin 0.03 04/07/25 17:40: Troponin T Hi Sens 2 Hr 11 04/07/25 19:35: Troponin T Hi Sens 4Hr 11 04/08/25 05:47: WBC 14.2 H, RBC 4.46 L, Hgb 13.8, Hct 46.5, MCV 104.3 H, MCH 30.9, MCHC 29.7 L, RDW Std Deviation 50.2 H, RDW Coeff of Valerie 13.1, Plt Count 202, MPV 9.9, Immature Gran % (Auto) 1.000 H, Neut % (Auto) 89.0 H, Lymph % (Auto) 6.1 L, [place] % (Auto) 3.8, Eos % (Auto) 0.0, Baso % (Auto) 0.1, Absolute Neuts (auto) 12.7 H, Absolute Lymphs (auto) 0.86, Nucleated RBC % 0, Sodium 138, Potassium 5.0, Chloride 86 L, Carbon Dioxide 42.2 H, Anion Gap 10, BUN 21 H, Creatinine 0.57 L, Estim Creat Clear Calc 213.85, Est GFR (MDRD) Non-Af 115, BUN/Creatinine Ratio 36.0 H, Glucose 142 H, Calcium 9.7, Total Bilirubin 0.31, AST 38, ALT 43, Alkaline Phosphatase 96, Total Protein 7.3, Albumin 4.0, Globulin 3.3, Albumin/Globulin Ratio 1.2, Triglycerides 145, Cholesterol 205 H, LDL Cholesterol, Calc 109, VLDL Cholesterol 29, HDL Cholesterol 67, Cholesterol/HDL Ratio 3.06, TSH 0.442 Micro: Microbiology 04/07/25 14:50 Mucosa - Nasopharyngeal Respiratory Panel (PCR) - Final ABG Data ABG results: ABG 04/07/25 04/07/25 04/07/25 11:18 13:03 15:04 Specimen Type PAPITO PAPITO PAPITO Sample Site Not entered Not entered Not entered O2 % 3.0 30.0 30.0 VBG pH 7.25 L 7.23 L 7.26 L VBG pO2 27 33 21 L VBG HCO3 49 H 48 H 52 H VBG Total CO2 > 50 H > 50 H > 50 H VBG O2 Sat (Calc) 35 L 46 L 24 L VBG Base Excess 22 H 21 H 25 H POC Mix VBG pCO2 Pt Tmp 112.2 H* 114.1 H* 115.6 H* O2 Delivery Device Cannula Not entered avaps Crit Call To/Read Back Yes Yes Yes Blood Gas Notified Whom ar white Blood Gas Notified Time 11:20:00 13:05:12 15:06:04 Radiography Diagnostic Testing: Radiology Impression Chest X-Ray 04/07/25 11:23 IMPRESSION: Hyperinflation. Findings suggestive of pulmonary hypertension. Mild cardiac enlargement. Reading Location: [facility] Physical Exam Narrative Seen and examined. Patient complain of more mucus and rattling sound in the chest, not able to bring up. Shortness of breath is better. Patient has BiPAP, trilogy NIPPV at home and nebulization. He follows tray service worker Dr. Reece Fernandes. His symptoms worsen including cough, dyspnea for last 3 to 4 days. Physical exam General: Alert, Oriented x3, Cooperative. Morbid obesity BMI 43.3 kg/m? HEENT: Atraumatic, PERRLA, EOMI, Normocephalic. Oral: No Gingival or Mucosal Lesions/ Ulcerations Neck: Supple, No JVD, Negative Carotid Bruits Chest wall/Lungs: Air entry severely diminished in all lung ring. Bilateral fine rhonchi Cardiovascular: Regular rate and rhythm, Normal S1,S2, systolic murmur Abdomen: Bowel Sounds Present, Soft, Non Tender, Non-Distended : No dysuria. No renal angle tenderness. No suprapubic tenderness. Extremities: 2+ pedal edema, Capillary Refill Less than 3 Seconds Skin: No rashes, No breakdown Musculoskeletal: No Tenderness to Palpation of Joints or Extremities Neurological: Cranial nerves II-XII grossly intact, DTR 2+/4. No acute focal neurological deficit. Psych/Mental Status: Flat affect Assessment & Plan Assessment/Plan (1) Acute exacerbation of chronic obstructive pulmonary disease: PLAN: Plan The patient is a 54 y/o M came to ED with shortness of breath/difficulty breathing and hypoxia, increased edema and orthopnea with history of chronic hypoxic respiratory failure, on usual 4 L of oxygen but was 89% on 4 L. Increased to 5 L but is still hypoxic. Patient has history of COPD CHF. Denies chest pressure but has mucus rattling in the chest. 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 Bojorquez at [place] [facility]. 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 Denies much change in the leg swelling. Patient is being managed on scheduled bronchodilator, IV Solu-Medrol, Mucinex, incentive spirometry and Pep. acetylcysteine nebulization ordered. 04/28/2024 echocardiogram with normal LV size, LV systolic function normal, LVEF 55% thus request repeat. Place snug CORWIN wraps. TSH normal #2. Hyperkalemia, mild: Initial potassium 5.5, mildly elevated, in the ED initiated on hyperkalemic protocol with 10 unit IV insulin x 1, dextrose amp given. Repeat potassium 5.0 high normal. #3. 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 Patient follows oncologist and radiation oncologist. It seems in remission. Follow-up #4. Hypertension: Continue home regimen including IV Lasix as noted above, metoprolol, losartan, PRN hydralazine. #5. Hyperlipidemia: continue patient on statin therapy. Lipid profile in normal limit. #6. Hx VTE (DVT, PE): continue chronic Eliquis regimen. #7. Anxiety and Depression: continue patient home bupropion and sertraline home regimen. Encourage continued outpatient follow-up and evaluation as previously arranged. #8. Allergic rhinitis: continue patient home loratadine, Singulair, fluticasone home regimen. #9. Morbid Obesity: Weight loss and lifestyle changes encouraged, nutrition consulted. #10. Tobacco Abuse: Encouraged cessation, inpatient consultation per RT, NR if desired. #11. LAYLA: BIPAP continuous currently->wean to q HS. #12. DVT prophylaxis: Continue home Eliquis regimen. #13. CODE status: Patient HCPOA is his significant who is present and living will is currently in place. Discussed CODE status at length including difference between FULL code, DNR-CCA and DNR-CC status. Following discussions about the differences in these status, requested Full Code status. Charges/Coding Addendum Addendum: Total time of the visit including total time spent in counseling or coordination of care, (more than 50% of the total time, spent in obtaining medical information from nurses and other ancillary care providers ,explaining to the patient about labs, imaging, diagnosis and management of active complex medical conditions), multiple conditions including lung cancer, end-stage COPD, acute on chronic combined respiratory failure and heart failure exacerbation, review of labs and imaging is 35 minutes. Visit Charges Inpatient E&M: 96836 Subs Hosp L3
[2025-04-08] MEDS: Metoprolol Tartrate 50 MG Tablet PO ×2 (09:13→21:32)
[2025-04-08] MEDS: guaiFENesin 1,200 MG Tablet 1200 MG PO ×2 (09:13→21:34)
[2025-04-08] MEDS: Losartan Potassium 25 MG Tablet PO (09:13)
[2025-04-08] MEDS: Spironolactone 25 MG Tablet PO ×2 (09:13→21:39)
[2025-04-08] MEDS: APIXABAN 5 MG TABLET PO ×2 (09:13→21:33)
[2025-04-08] MEDS: buPROPion (SR) 150 MG Tablet.SA PO ×2 (09:13→21:33)
[2025-04-08] MEDS: Sertraline 100 MG Tablet PO (09:14)
[2025-04-08] MEDS: Loratadine 10 MG Tablet PO (09:14)
[2025-04-08] MEDS: Furosemide 40 MG/4 ML Vial IV ×2 (09:14→17:34)
--- NOTE | 2025-04-08 12:55 | CASEMGMT ---
Addendum entered by Darby Flynn 04/08/25 16:06: Pt has been active w/Palliative care in the past, but states he ended up cancelling them states there were issues/mix-up w/appts. He would be willing to get sign back up with them again & agreeable to a referral being sent. Dr Goetz made aware and order received. Referral sent to [facility] at this time via secure e-mail. Original Note: RN CM deportation officer CM to room to meet with patient for initial transition planning/care coordination assessment. RN CM introduced self and role at [facility], pt voices understanding. Pt is A&O and is resting in bed. Care providers, pharmacy, and demographics verified. Strata:2 PCP: Chitra Scott Specialists: Dr Bojorquez-cardiology, Alesia Morales, CHANNEL CEMENTER OUTSOLE MACHINE, @ [facility], Dr Vang-radiation oncology, Dr Macdonald-oncology Preferred Pharmacy: [facility] Insurance: [employer] [facility] Prescription Benefit: Yes LNOK: Lauranatividad Mirza/RANDAL, significant other. Daniele Ku, son. Living Arrangements: Pt lives with his significant other in a mobile home with 5 steps to enter during winter months, and during summer, he and Laura, stay in a camper @ [facility] in [place], [place]. They are currently staying in the camper and he plans to return there @ de. There are 3 steps to enter. Pt reports being independent w/ADL's and manages his medications. Laura does home mgnt tasks. Transportation: Self, Laura DME: Home oxygen through [employer]. Verified current order states 4L cont and 6L @ HS through NIV. Pt states that he has a concentrator, portable tanks, NIV, and a pulse ox. Pt also has a cane, FWW, and W/C. There is a portable tank in his vehicle and Laura can bring in @ discharge. HHC/SNF: History with [facility] HH and has been to [facility] in the past. Pt states he may be interested in HHC again. Discussed MCR's home-bound criteria and pt states he has not been homebound. He is aware therapy to evaluate him and [facility]INA BLAKELY will follow for any recommendations. Also made aware, if he is would become home-bound and decide he would like HHC, to discuss this w/his PCP. He voices understanding. Pt wishes to return home/back to his camper w/Laura and states has no concerns with going home at time of discharge.? CM?to follow for any increase in home oxygen needs and any further discharge planning/needs.? Pt voices no further concerns/needs at this time.? Advised pt to ask for?CM?if any further questions/concerns/needs arise.? Voices understanding. PLAN:??Home. PT/OT evals pending. Luis BSN?RN?CM
[2025-04-08] MEDS: Acetylcysteine 800 MG/4 ML VIAL.NEB. INHALATION (20:18)
[2025-04-08] MEDS: Montelukast 10 MG Tablet PO (21:33)
[2025-04-08] MEDS: Atorvastatin Calcium 10 MG Tablet PO (21:33)
[2025-04-08] MEDS: Gabapentin 100 MG Capsule 200 MG PO (21:39)
[2025-04-09] VITALS (12 sets, daily range): BP systolic 105–152; BP diastolic 60–109; PULSE 62–94; RESP 12–22; TEMP 36.4–36.9; O2SAT 90–95; BMI 43.3
[2025-04-09 06:22] LABS: Absolute Lymphocyte Count 0.76 X10^3/uL (0.83-4.51); Absolute Neutrophil Count 13.8 X10^3/uL (2.0-7.7); Basophil# 0.01 X10^3/uL; Basophil% 0.1 % (0-1); Hemoglobin 12.9 g/dL (13.0-16.5); Lymphocyte # 0.76 X10^3/ul (0.83-4.51); Lymphocyte % 4.9 % (19-41); Mean Corpuscular Hgb 30.4 pg (27.0-32.0); Mean Corpuscular Volume 101.2 fL (80-94); Mean Platelet Vol. 9.9 fl (6.2-12.0); Monocyte# 0.76 X10^3/uL; Monocyte% 4.9 % (0-10); NRBC Flagged by Analyzer 0 % (0-5); Neutrophil # 13.75 X10^3/uL (2.7-7.7); Neutrophil % 89.4 % (47-70); Platelet Count 204 K/mm3 (150-450); RBC Distribution Width SD 48.3 fl (35.1-43.9); Red Blood Count 4.25 M/mm3 (4.6-6.2); White Blood Count 15.4 K/mm3 (4.4-11.0)
[2025-04-09 06:57] LABS: Anion Gap 6 (5-15); BUN 27 mg/dL (4-19); Calcium,Total 9.4 mg/dL (7.6-11.0); Carbon Dioxide 46.9 mmol/L (21.0-32.0); Chloride 85 mmol/L (98-108); Creatinine, Serum 0.62 mg/dL (0.70-1.20); EST Glomerular Filtration Rate 112 (>60); Estimated Creatinine Clearance 196.75 ml/min (50-250); Glucose 210 mg/dL (70-99); Potassium 4.3 mmol/L (3.3-5.1); Sodium Level 138 mmol/L (133-145)
[2025-04-09] MEDS: Budesonide Respules 0.5 MG/2 ML AMPUL.NEB. INHALATION ×2 (07:03→19:00)
[2025-04-09] MEDS: Ipratropium/Albuterol Sulfate 3 ML AMPUL.NEB INHALATION ×4 (07:03→19:00)
[2025-04-09] MEDS: Acetylcysteine 800 MG/4 ML VIAL.NEB. INHALATION ×2 (07:03→19:01)
--- NOTE | 2025-04-09 08:27 | PN.HOSP_ITS ---
Reason for Visit Reason for Visit: Diagnoses Chronic obstructive pulmonary disease with (acute) exacerbation (04/07/25) Objective Data Objective Data Vital Signs: Vital Signs Temp Pulse Resp BP Pulse Ox O2 Del Method O2 Flow Rate 97.2 F L 62 18 122/63 H 94 Nasal Cannula 4 04/08/25 21:02 04/09/25 05:11 04/09/25 05:11 04/08/25 21:02 04/08/25 23:33 04/09/25 04:50 04/09/25 04:50 FiO2 30 04/09/25 05:11 Oxygen Flow Rate (L/min) 4 Oxygen Delivery Method Nasal Cannula Weight: 319 lb 10.724 oz Body Mass Index (BMI) 43.3 Intake & Output: Intake and Output for Last 24 Hours 04/07/25 04/08/25 04/09/25 23:59 23:59 23:59 Intake Total 280 / 280 700 / 750 250 / 250 Output Total 1700 / 1700 1900 / 1900 1300 / 1300 Balance -1420 / -1420 -1200 / -1150 -1050 / -1050 Lab / Micro Data 04/09/25 05:38 04/09/25 05:38 Labs: Laboratory Results - last 24 hr 04/09/25 05:38: WBC 15.4 H, RBC 4.25 L, Hgb 12.9 L, Hct 43.0, MCV 101.2 H, MCH 30.4, MCHC 30.0 L, RDW Std Deviation 48.3 H, RDW Coeff of Valerie 13.0, Plt Count 204, MPV 9.9, Immature Gran % (Auto) 0.700, Neut % (Auto) 89.4 H, Lymph % (Auto) 4.9 L, [place] % (Auto) 4.9, Eos % (Auto) 0.0, Baso % (Auto) 0.1, Absolute Neuts (auto) 13.8 H, Absolute Lymphs (auto) 0.76 L, Nucleated RBC % 0, Sodium 138, Potassium 4.3, Chloride 85 L, Carbon Dioxide 46.9 H*, Anion Gap 6, BUN 27 H, Creatinine 0.62 L, Estim Creat Clear Calc 196.75, Est GFR (MDRD) Non- Af 112, BUN/Creatinine Ratio 43.0 H, Glucose 210 H, Calcium 9.4 Micro: Microbiology 04/07/25 14:50 Mucosa - Nasopharyngeal Respiratory Panel (PCR) - Final Physical Exam Narrative Seen and examined. Patient breathing is better. Sitting up. Wanted to come out of fluid restriction. Shortness of breath is better. Patient has BiPAP, trelegy, NIPPV at home and nebulization. He follows taste tester Dr. Reece Fernandes. His symptoms worsen including cough, dyspnea for last 3 to 4 days. Physical exam General: Alert, Oriented x3, Cooperative. Morbid obesity BMI 43.3 kg/m? HEENT: Atraumatic, PERRLA, EOMI, Normocephalic. Oral: No Gingival or Mucosal Lesions/ Ulcerations Neck: Supple, No JVD, Negative Carotid Bruits Chest wall/Lungs: Air entry severely diminished in all lung ring. Improvement in rhonchi. Cardiovascular: Regular rate and rhythm, Normal S1,S2, systolic murmur Abdomen: Bowel Sounds Present, Soft, Non Tender, Non-Distended : No dysuria. No renal angle tenderness. No suprapubic tenderness. Extremities: Pedal edema resolved. Capillary Refill Less than 3 Seconds Skin: No rashes, No breakdown Musculoskeletal: No Tenderness to Palpation of Joints or Extremities Neurological: Cranial nerves II-XII grossly intact, DTR 2+/4. No acute focal neurological deficit. Psych/Mental Status: Flat affect Assessment & Plan Assessment/Plan (1) Acute exacerbation of chronic obstructive pulmonary disease: PLAN: Plan The patient is a 54 y/o M came to ED with shortness of breath/difficulty breathing and hypoxia, increased edema and orthopnea with history of chronic hypoxic respiratory failure, on usual 4 L of oxygen but was 89% on 4 L. Increased to 5 L but is still hypoxic. Patient has history of COPD CHF. Denies chest pressure but has mucus rattling in the chest. 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 Bojorquez at [place] [facility]. 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 Denies much change in the leg swelling. Patient is being managed on scheduled bronchodilator, IV Solu-Medrol, Mucinex, incentive spirometry and Pep. acetylcysteine nebulization ordered. 04/28/2024 echocardiogram with normal LV size, LV systolic function normal, LVEF 55% thus request repeat. Place snug CORWIN wraps. TSH normal 04/09: Patient is doing well. Continue above treatment. Fluid restriction taken off. #2. Hyperkalemia, mild: Initial potassium 5.5, mildly elevated, in the ED initiated on hyperkalemic protocol with 10 unit IV insulin x 1, dextrose amp given. Repeat potassium 5.0 high normal. 04/09: Potassium 4.3. Patient on spironolactone 25 mg twice daily at home. Decreased to 25 mg daily #3. 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 Patient follows oncologist and radiation oncologist. It seems in remission. Follow-up #4. Hypertension: Continue home regimen including IV Lasix as noted above, metoprolol, losartan, PRN hydralazine. #5. Hyperlipidemia: continue patient on statin therapy. Lipid profile in normal limit. #6. Hx VTE (DVT, PE): continue chronic Eliquis regimen. #7. Anxiety and Depression: continue patient home bupropion and sertraline home regimen. Encourage continued outpatient follow-up and evaluation as previously arranged. #8. Allergic rhinitis: continue patient home loratadine, Singulair, fluticasone home regimen. #9. Morbid Obesity: Weight loss and lifestyle changes encouraged, nutrition consulted. #10. Tobacco Abuse: Encouraged cessation, inpatient consultation per RT, NR if desired. #11. LAYLA: BIPAP continuous currently->wean to q HS. #12. DVT prophylaxis: Continue home Eliquis regimen. #13. CODE status: Patient RANDAL is his significant who is present and living will is currently in place. Discussed CODE status at length including difference between FULL code, DNR-CCA and DNR-CC status. Following discussions about the differences in these status, requested Full Code status. Anticipate discharge in 1 to 2 days Charges/Coding Visit Charges Inpatient E&M: 48000 Subs Hosp L2
[2025-04-09] MEDS: Spironolactone 25 MG Tablet PO (09:27)
[2025-04-09] MEDS: APIXABAN 5 MG TABLET PO ×2 (09:28→20:46)
[2025-04-09] MEDS: Loratadine 10 MG Tablet PO (09:28)
[2025-04-09] MEDS: Fluticasone 0.05% 1 SPRAY NASAL.SRY 2 SPRAY NASAL (09:28)
[2025-04-09] MEDS: Losartan Potassium 25 MG Tablet PO (09:28)
[2025-04-09] MEDS: buPROPion (SR) 150 MG Tablet.SA PO ×2 (09:29→20:47)
[2025-04-09] MEDS: Furosemide 40 MG/4 ML Vial IV (09:29)
[2025-04-09] MEDS: guaiFENesin 1,200 MG Tablet 1200 MG PO ×2 (09:29→20:49)
[2025-04-09] MEDS: Metoprolol Tartrate 50 MG Tablet PO ×2 (09:29→20:48)
[2025-04-09] MEDS: Sertraline 100 MG Tablet PO (09:29)
--- NOTE | 2025-04-09 14:28 | CPS ---
will hook pt up to a continuous p-ox machine when a machine becomes available.
[2025-04-09] MEDS: Gabapentin 100 MG Capsule 200 MG PO (20:46)
[2025-04-09] MEDS: Senna/Docusate Sodium 1 Tablet 2 TABLET PO (20:48)
[2025-04-09] MEDS: Montelukast 10 MG Tablet PO (20:48)
[2025-04-09] MEDS: Atorvastatin Calcium 10 MG Tablet PO (20:49)
[2025-04-09] MEDS: 0.9% Saline Lock 10 ML Syringe IV (20:50)
[2025-04-10] VITALS (9 sets, daily range): BP systolic 104–117; BP diastolic 86–91; PULSE 69–77; RESP 12–21; TEMP 36.6; O2SAT 77–95; BMI 43.4
[2025-04-10] MEDS: Acetylcysteine 800 MG/4 ML VIAL.NEB. INHALATION ×3 (01:50→13:27)
[2025-04-10] MEDS: Ipratropium/Albuterol Sulfate 3 ML AMPUL.NEB INHALATION ×3 (01:50→13:26)
[2025-04-10] MEDS: 0.9% Saline Lock 10 ML Syringe IV (05:25)
[2025-04-10] MEDS: Budesonide Respules 0.5 MG/2 ML AMPUL.NEB. INHALATION (06:59)
[2025-04-10 07:20] LABS: Absolute Lymphocyte Count 0.92 X10^3/uL (0.83-4.51); Absolute Neutrophil Count 16.1 X10^3/uL (2.0-7.7); Basophil# 0.02 X10^3/uL; Basophil% 0.1 % (0-1); Hematocrit 47.4 % (40-54); Lymphocyte # 0.92 X10^3/ul (0.83-4.51); Lymphocyte % 5.1 % (19-41); Mean Corp Hgb Conc 29.5 g/dL (32-36); Mean Corpuscular Volume 101.7 fL (80-94); Mean Platelet Vol. 10.3 fl (6.2-12.0); Monocyte# 0.78 X10^3/uL; Monocyte% 4.3 % (0-10); NRBC Flagged by Analyzer 0 % (0-5); Neutrophil # 16.13 X10^3/uL (2.7-7.7); Neutrophil % 89.7 % (47-70); Platelet Count 228 K/mm3 (150-450); RBC Distribution Width CV 13.2 % (11.6-14.6); RBC Distribution Width SD 49.3 fl (35.1-43.9); Red Blood Count 4.66 M/mm3 (4.6-6.2)
[2025-04-10 07:43] LABS: Anion Gap 8 (5-15); BUN 29 mg/dL (4-19); BUN/Creat Ratio 44.1 RATIO (10-20); Calcium,Total 9.3 mg/dL (7.6-11.0); Carbon Dioxide 43.2 mmol/L (21.0-32.0); Chloride 84 mmol/L (98-108); Creatinine, Serum 0.65 mg/dL (0.70-1.20); EST Glomerular Filtration Rate 110 (>60); Estimated Creatinine Clearance 187.82 ml/min (50-250); Glucose 182 mg/dL (70-99); Potassium 4.5 mmol/L (3.3-5.1); Sodium Level 135 mmol/L (133-145)
[2025-04-10] MEDS: APIXABAN 5 MG TABLET PO (09:02)
[2025-04-10] MEDS: Furosemide 40 MG/4 ML Vial IV (09:02)
[2025-04-10] MEDS: Metoprolol Tartrate 50 MG Tablet PO (09:03)
[2025-04-10] MEDS: Spironolactone 25 MG Tablet PO (09:03)
[2025-04-10] MEDS: buPROPion (SR) 150 MG Tablet.SA PO (09:03)
[2025-04-10] MEDS: Loratadine 10 MG Tablet PO (09:03)
[2025-04-10] MEDS: Sertraline 100 MG Tablet PO (09:04)
[2025-04-10] MEDS: guaiFENesin 1,200 MG Tablet 1200 MG PO (10:08)
--- NOTE | 2025-04-10 10:17 | CASEMGMT ---
Addendum entered by Xin Cunningham 04/10/25 13:51: [facility] oxygen [facility]. Addendum entered by Xin Cunningham 04/10/25 12:45: Updated hospitalist on amb pox. Requested signature for updated rx. Original Note: FINA CM into pt room, pt lying in bed in no distress. Discussed HHC with patient. Pt does not feel this is necessary. Pt denies any homegoing needs. Pt has portable oxygen tank to return home at nm.
--- NOTE | 2025-04-10 11:26 | DCINST_ITS ---
Discharge Instructions Diet Discharge Diet: Low fat / Low cholesterol and 6 Cup Fluid Restriction DC O2, CPAP, BIPAP needs Home O2 Discharge instructions: No Dressing / Incision Discharge Activity: Return to Normal Activity Dressing / Incision Call your doctor if you observe: Fever of 101 or Higher, Shortness of breath, Dizziness, Fainting spells, Swelling in the ankles, Chest pain and Increased palpitations (irregular heartbeat) Follow Up Care Test Results: Test results from this visit will be discussed in further detail at your follow- up appointment, if applicable. Discharge Plan Admission Admit Date/Time: 04/07/25 13:33 Attending Provider: Jer Graham Primary Care Provider: Chitra Scott Consulting Providers: Alyssa Escobar; Martin Goetz Instructions Additional Instructions / Restrictions: Verify with your doctor that you are still supposed to be on the Aldactone, it appears that the last 90-day prescription you picked up was in November therefore you should have not had any for the last month or so. If you are not supposed to be on the Aldactone, please discontinue. Otherwise I would recommend going down on the Aldactone to once daily given that your potassium was elevated on admission. Your torsemide has been decreased as well given your elevated bicarbonate, if you do notice that you are taking more of your as needed Lasix please go back up on your torsemide to twice daily dosing and notify your primary care doctor. Follow-up with your doctor in 3 to 5 days to monitor your lab work. Discharge Orders/Prescriptions Prescriptions: New prednisone 10 mg tablet 10 mg PO DAILY Qty: 32 0RF Rx Instructions: Take 4 tablets daily for 3 days then 3 tablets daily for 3 days then 2 tablets daily for 3 days then 1 tablet daily for 3 days then half tablet daily for 4 days Continued sertraline 100 mg tablet 100 mg PO DAILY bupropion HCl 150 mg tablet sustained-release 12 hr 150 mg PO BID budesonide-formoterol [Symbicort] 160-4.5 mcg/actuation HFA aerosol inhaler 2 puff inhalation BID Qty: 10.2 11RF apixaban 5 mg tablet 5 mg PO BID Qty: 60 11RF Patient Comments: PT TAKES ONCE DAILY acetaminophen [Tylenol] 325 mg tablet 325 mg PO Q8 PRN (Reason: pain) spironolactone 25 MG tablet 25 mg PO BID cyanocobalamin (vitamin B-12) 500 MCG tablet 500 mcg PO DAILY furosemide 40 mg tablet 40 mg PO DAILY PRN (Reason: FLUID RETENTION) metoprolol tartrate 50 mg tablet 50 mg PO BID gabapentin 100 mg capsule 100 mg PO QHS fluticasone propionate 50 mcg/actuation spray,suspension 2 spray INTRANASAL DAILY PRN (Reason: seasonal allergies) cholecalciferol (vitamin D3) 125 mcg (5,000 unit) tablet,disintegrating 125 mcg PO QODAY rosuvastatin 5 mg tablet 5 mg PO QHS Dupixent Pen 300 mg/2 mL pen injector 300 mg subcut Q14D Rx Instructions: as a single dose loratadine [Allerclear] 10 mg tablet 10 mg PO DAILY Patient Comments: PT TAKES BOTH CLARITIN AND ZYRTEC CONSISTANTLY guaifenesin [Mucus Relief ER] 1,200 mg Tablet Extended Release 12hr 1,200 mg PO BID PRN (Reason: congestion) montelukast [Singulair] 10 mg tablet 10 mg PO QPM Qty: 30 5RF albuterol sulfate [Ventolin HFA] 90 mcg/actuation HFA aerosol inhaler 2 puff INHALATION Q4H PRN (Reason: shortness of breath or wheezing) Qty: 18 6RF losartan 25 mg tablet 25 mg PO DAILY Qty: 30 6RF albuterol sulfate 2.5 mg /3 mL (0.083 %) solution for nebulization 2.5 mg INHALATION Q4H PRN (Reason: shortness of breath or wheezing) Qty: 360 6RF cetirizine 10 mg tablet 10 mg PO DAILY Qty: 90 3RF Patient Comments: PT TAKES BOTH CLARITIN AND ZYRTEC CONSISTANTLY ipratropium-albuterol 0.5 mg-3 mg(2.5 mg base)/3 mL solution for nebulization 3 ml continuous nebulization Q6H PRN (Reason: shortness of breath or wheezing) Qty: 180 11RF Changed torsemide 20 mg tablet 20 mg PO DAILY Qty: 60 2RF Referrals / Follow Up: Chitra Scott NP-C [Primary Care Provider] - Within 1 Week Disposition Disposition (needs filled in before D/C Order can be placed): Home, Self Care
--- NOTE | 2025-04-10 13:49 | PHA.DC.MC.R ---
Pharmacy [facility] has performed discharge medication reconciliation and counseling for this patient. The patient's discharge medication list was reviewed for discrepancies and discrepancies were resolved. The patient was counseled on the following discharge medications and changes in medications for homegoing were reviewed. The Reason for Use, instructions for use, and potential side effects were reviewed for all new medications. The patient's questions regarding all of their medications were answered. 1. Prednisone taper The patient was able to verbally demonstrate an understanding of their discharge medications. Medications at Discharge Home Medications spironolactone 25 mg tablet 25 mg PO BID FLUID RETENTION/BLOOD PRESSURE 12/02/15 cyanocobalamin (vitamin B-12) 500 mcg tablet 500 mcg PO DAILY SUPPLEMENT 11/08/21 sertraline 100 mg tablet 100 mg PO DAILY DEPRESSION 01/23/22 montelukast 10 mg tablet (Singulair) 10 mg PO QPM COPD #30 tabs 06/30/22 furosemide 40 mg tablet 40 mg PO DAILY PRN FLUID RETENTION 01/01/23 albuterol sulfate 90 mcg/actuation aerosol inhaler (Ventolin HFA) 2 puff inhalation Q4H PRN shortness of breath or wheezing #18 grams 05/23/23 metoprolol tartrate 50 mg tablet 50 mg PO BID BLOOD PRESSURE 06/10/23 cholecalciferol (vitamin D3) 125 mcg (5,000 unit) disintegrating tablet 125 mcg PO QODAY SUPPLEMENT 08/05/23 gabapentin 100 mg capsule 100 mg PO QHS NERVE PAIN 10/24/23 fluticasone propionate 50 mcg/actuation nasal spray,suspension 2 spray intranasal DAILY PRN seasonal allergies 12/18/23 losartan 25 mg tablet 25 mg PO DAILY blood pressure #30 tabs 01/25/24 rosuvastatin 5 mg tablet 5 mg PO QHS cholesterol 04/27/24 albuterol sulfate 2.5 mg/3 mL (0.083 %) solution for nebulization 2.5 mg (3 mL) inhalation Q4H PRN shortness of breath or wheezing #360 mL 05/01/24 bupropion HCl 150 mg tablet,12 hr sustained-release 150 mg PO BID mental health 06/05/24 cetirizine 10 mg tablet 10 mg PO DAILY allergies #90 tabs 06/05/24 ipratropium 0.5 mg-albuterol 3 mg (2.5 mg base)/3 mL nebulization soln 3 ml continuous nebulization Q6H PRN shortness of breath or wheezing #180 mL 06/05/24 dupilumab 300 mg/2 mL subcutaneous pen injector (Dupixent) 300 mg subcut Q14D skin 08/13/24 loratadine 10 mg tablet (Allerclear) 10 mg PO DAILY allergies 09/06/24 acetaminophen 325 mg tablet (Tylenol) 325 mg PO Q8 PRN pain 01/12/25 apixaban 5 mg tablet 5 mg PO BID blood thinner #60 tabs 02/26/25 budesonide-formoterol HFA 160 mcg-4.5 mcg/actuation aerosol inhaler (Symbicort) 2 puff inhalation BID SHORTNESS OF BREATH #10.2 grams 02/26/25 guaifenesin 1,200 mg tablet, extended release 12 hr (Mucus Relief ER) 1,200 mg PO BID PRN congestion 04/07/25 prednisone 10 mg tablet 10 mg PO DAILY #32 tabs 04/10/25 torsemide 20 mg tablet 20 mg PO DAILY FLUID RETENTION #60 tabs 04/10/25
--- NOTE | 2025-04-10 19:12 | DS.PCM_ITS ---
Providers Date of Admission: 04/07/25 Primary Care Physician: CLAYTON Monroy Reason For Visit: RESPIRATORY FAILURE, COPD EXACERBATION Diagnosis Discharge Diagnosis (1) Acute exacerbation of chronic obstructive pulmonary disease: Status: Chronic Code(s): J44.1 - Chronic obstructive pulmonary disease with (acute) exacerbation Medications at Discharge Home Medications spironolactone 25 mg tablet 25 mg PO BID FLUID RETENTION/BLOOD PRESSURE 12/02/15 cyanocobalamin (vitamin B-12) 500 mcg tablet 500 mcg PO DAILY SUPPLEMENT 11/08/21 sertraline 100 mg tablet 100 mg PO DAILY DEPRESSION 01/23/22 montelukast 10 mg tablet (Singulair) 10 mg PO QPM COPD #30 tabs 06/30/22 furosemide 40 mg tablet 40 mg PO DAILY PRN FLUID RETENTION 01/01/23 albuterol sulfate 90 mcg/actuation aerosol inhaler (Ventolin HFA) 2 puff inhalation Q4H PRN shortness of breath or wheezing #18 grams 05/23/23 metoprolol tartrate 50 mg tablet 50 mg PO BID BLOOD PRESSURE 06/10/23 cholecalciferol (vitamin D3) 125 mcg (5,000 unit) disintegrating tablet 125 mcg PO QODAY SUPPLEMENT 08/05/23 gabapentin 100 mg capsule 100 mg PO QHS NERVE PAIN 10/24/23 fluticasone propionate 50 mcg/actuation nasal spray,suspension 2 spray intranasal DAILY PRN seasonal allergies 12/18/23 losartan 25 mg tablet 25 mg PO DAILY blood pressure #30 tabs 01/25/24 rosuvastatin 5 mg tablet 5 mg PO QHS cholesterol 04/27/24 albuterol sulfate 2.5 mg/3 mL (0.083 %) solution for nebulization 2.5 mg (3 mL) inhalation Q4H PRN shortness of breath or wheezing #360 mL 05/01/24 bupropion HCl 150 mg tablet,12 hr sustained-release 150 mg PO BID mental health 06/05/24 cetirizine 10 mg tablet 10 mg PO DAILY allergies #90 tabs 06/05/24 ipratropium 0.5 mg-albuterol 3 mg (2.5 mg base)/3 mL nebulization soln 3 ml continuous nebulization Q6H PRN shortness of breath or wheezing #180 mL 06/05/24 dupilumab 300 mg/2 mL subcutaneous pen injector ([employer]) 300 mg subcut Q14D skin 08/13/24 loratadine 10 mg tablet (Allerclear) 10 mg PO DAILY allergies 09/06/24 acetaminophen 325 mg tablet (Tylenol) 325 mg PO Q8 PRN pain 01/12/25 apixaban 5 mg tablet 5 mg PO BID blood thinner #60 tabs 02/26/25 budesonide-formoterol HFA 160 mcg-4.5 mcg/actuation aerosol inhaler (Symbicort) 2 puff inhalation BID SHORTNESS OF BREATH #10.2 grams 02/26/25 guaifenesin 1,200 mg tablet, extended release 12 hr (Mucus Relief ER) 1,200 mg PO BID PRN congestion 04/07/25 prednisone 10 mg tablet 10 mg PO DAILY #32 tabs 04/10/25 torsemide 20 mg tablet 20 mg PO DAILY FLUID RETENTION #60 tabs 04/10/25 Hospital Course Operations None Procedures None Summary of Care Provided Minutes Spent on Discharge: 35 Hospital Course: Per HPI: The patient is a 54 y/o M w/ PMHx: Morbid obesity, LAYLA on BIPAP, Chronic COPD/Severe Persistent Asthma with Chronic Hypoxic and Hypercarbic Respiratory Failure (4L NC, BIPAP q HS) w/ Allergic rhinitis complicated by 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 [facility] with supposedly recent initiation of Lasix however he has not picked these up yet and given worsening dyspnea prompted EMS called noting that patient required 5 L instead of his baseline 4 L with increased edema, orthopnea and possible weight gain prompting eventual ED evaluation. From review of weights patient last weight 317 pounds now increased to 332 pounds upon current presentation. He also notes he has accidentally missed 2 days of his diuretic therapy. He also reports that at least over the last month he has actually eaten less thus he would not expect his weight gain to be from again excessive food intake. Workup in the ED included T98.2 Oral, heart rate 82, BP 157/94, respiratory rate 20, initially on nasal cannula eventually transition to BiPAP with 30% FiO2 with most recent repeat vitals T98.4, heart 79, BP 114/57, respiratory rate 20, 95% on room air, CBC with WBC 14.7, he 1 13.3, platelet 232 with left shift and lymphopenia, VBG with pH 7.23, bicarb 48, VBG O2 46%, POC mixed VBG pCO2 114.1, BMP potassium 5.5, chloride 91, carbon oxide 42.9, BUN/creatinine 20/0.60, GFR 113, glucose 151, NT proBNP II 509, chest x-ray with hyperinflation with findings suggestive of pulmonary hypertension with mild cardiac enlargement with no acute cardiopulmonary finding, EKG with sinus rhythm with right bundle branch block with no acute evidence of ischemia similar to previous. In the ED patient missed her DuoNeb therapy and Solu-Medrol 125 mg IV x 1 in addition to hyperkalemic protocol. Hospital Course: 1. Acute on chronic hypoxic and hypercapnic respiratory failure due to COPD exacerbation with new adenocarcinoma of the right upper lobe/acute on chronic diastolic CHF?54-year-old male who has a history of noncompliance presents to the hospital with increasing shortness of breath. He wears 4 L nasal cannula at rest but does occasionally bump it up to 7 or 8 L at home he states. He also wears BiPAP at night. He also was found to have hyperkalemia on admission with potassium of 5.5. It is unclear which medications he takes and does not take. It seems based on prescriptions that he has been out of his Aldactone for about a month and he says that he is inconsistent with his Eliquis which he takes for his history of DVT/PE. He is feeling much better today and says that his shortness of breath is gone; he did need approximately 7 L with ambulation today which he says is his baseline oftentimes at home. His bicarb was climbing during his hospitalization so his diuretic was decreased to daily dosing. I discussed with him the need to take all of his meds consistently and we discussed fluid restriction on discharge. He does take Lasix 40 mg as needed for shortness of breath and edema and I decreased his torsemide from 20 mg twice daily to daily dosing with the addition of the fluid restriction. While I continued his Aldactone on discharge I did discuss with him the need to verify that he is still supposed to be on it with his outpatient physicians and to adjust accordingly. We discussed the possibility for discharge today versus staying another day or 2, however he requested to be discharged today and expressed understanding of the risks and benefits of going home. We were going to have an echo ordered however he had had one recently done at an outside hospital on 02/27/2025 with an EF of 60% and mild to moderate wall thickening in the left ventricle with an RVSP of 25 mmHg and moderately reduced systolic function of the right ventricle. Will continue with the prednisone taper on discharge and recommend outpatient follow-up with his PCP in 3 to 5 days. 2. Adenocarcinoma of the right upper lobe, essential hypertension, hyperlipidemia, anxiety, depression, obstructive sleep apnea, tobacco abuse are chronic medical conditions which complicates his care. His home medications were continued where appropriate Physical Exam Narrative General: Alert, Oriented x3, Cooperative, No apparent distress HEENT: Atraumatic, PERRLA, EOMI, Normocephalic Oral: Moist Mucosa Neck: Supple, No JVD Lungs: Diminished, Normal air movement, No rhonchi, No wheeze, No rales Cardiovascular: Regular rate, Regular Rhythm, Normal S1, Normal S2, No murmurs Abdomen: Soft, Non Tender, Non-Distended, No Hepato-splenomegaly Extremities: Edema, Capillary Refill Less than 3 Seconds Skin: No rashes, No breakdown Musculoskeletal: No Tenderness to Palpation of Joints or Extremities Neurological: No focal neurological deficits, Motor Exam 5/5 strength throughout, Sensory exam intact to light touch and pain Psych/Mental Status: Flat Weight / BMI Weight Weight: 320 lb 1.779 oz Body Mass Index (BMI) 43.4 ABG / Lab / Microbiology Data 04/10/25 05:42 04/10/25 05:42 Laboratory: Laboratory Results - last 24 hr 04/10/25 05:42: WBC 18.0 H, RBC 4.66, Hgb 14.0, Hct 47.4, MCV 101.7 H, MCH 30.0, MCHC 29.5 L, RDW Std Deviation 49.3 H, RDW Coeff of Valerie 13.2, Plt Count 228, MPV 10.3, Immature Gran % (Auto) 0.800, Neut % (Auto) 89.7 H, Lymph % (Auto) 5.1 L, Hardin % (Auto) 4.3, Eos % (Auto) 0.0, Baso % (Auto) 0.1, Absolute Neuts (auto) 16.1 H, Absolute Lymphs (auto) 0.92, Nucleated RBC % 0, Sodium 135, Potassium 4.5, Chloride 84 L, Carbon Dioxide 43.2 H, Anion Gap 8, BUN 29 H, Creatinine 0.65 L, Estim Creat Clear Calc 187.82, Est GFR (MDRD) Non-Af 110, BUN/Creatinine Ratio 44.1 H, Glucose 182 H, Calcium 9.3 Microbiology: Microbiology 04/08/25 10:48 Sputum, Expectorated/Coughed Gram Stain - Final 04/08/25 10:48 Sputum, Expectorated/Coughed Respiratory Culture - Final Mixed normal respiratory seng. No Streptococcus pneumoniae, beta-hemolytic Streptococcus or Staphylococcus aureus isolated. 04/07/25 14:50 Mucosa - Nasopharyngeal Respiratory Panel (PCR) - Final D/C Instructions Discharge Diet: Low fat / Low cholesterol and 6 Cup Fluid Restriction Call your doctor if you observe: Fever of 101 or Higher, Shortness of breath, Dizziness, Fainting spells, Swelling in the ankles, Chest pain and Increased palpitations (irregular heartbeat) DC O2, CPAP, BIPAP Needs Home O2 Discharge instructions: No Meaningful Use Info Meaningful Use Meaningful Use Diagnoses (Choose all that apply): None applicable Ischemic Stroke Statin Dosing Therapy Reference: STATIN DOSE THERAPY REFERENCE: * Patients > 75 years receive moderate or high dose statin therapy. * Patients 75 years or YOUNGER should receive HIGH intensity statin dose unless contraindicated. You will be required to document reason for non-treatment if statin daily dose does not meet guidelines. HIGH DOSE STATIN THERAPY DAILY Atorvastatin > than or = to 40 mg Rosuvastatin > than or = to 20 mg Amlodipine + Atorvastatin > than or = to 2.5/40 mg Ezetimibe + Simvastatin 10/80 mg Simvastatin 80mg Discharge Plan Admission Admit Date/Time: 04/07/25 13:33 Attending Provider: Jer Graham Primary Care Provider: Chitra Scott Consulting Providers: Alyssa Escobar; Martin Goetz Instructions Additional Instructions / Restrictions: Verify with your doctor that you are still supposed to be on the Aldactone, it appears that the last 90-day prescription you picked up was in November therefore you should have not had any for the last month or so. If you are not supposed to be on the Aldactone, please discontinue. Otherwise I would recommend going down on the Aldactone to once daily given that your potassium was elevated on admission. Your torsemide has been decreased as well given your elevated bicarbonate, if you do notice that you are taking more of your as needed Lasix please go back up on your torsemide to twice daily dosing and notify your primary care doctor. Follow-up with your doctor in 3 to 5 days to monitor your lab work. Discharge Orders/Prescriptions Prescriptions: New prednisone 10 mg tablet 10 mg PO DAILY Qty: 32 0RF Rx Instructions: Take 4 tablets daily for 3 days then 3 tablets daily for 3 days then 2 tablets daily for 3 days then 1 tablet daily for 3 days then half tablet daily for 4 days Continued sertraline 100 mg tablet 100 mg PO DAILY bupropion HCl 150 mg tablet sustained-release 12 hr 150 mg PO BID budesonide-formoterol [Symbicort] 160-4.5 mcg/actuation HFA aerosol inhaler 2 puff inhalation BID Qty: 10.2 11RF apixaban 5 mg tablet 5 mg PO BID Qty: 60 11RF Patient Comments: PT TAKES ONCE DAILY acetaminophen [Tylenol] 325 mg tablet 325 mg PO Q8 PRN (Reason: pain) spironolactone 25 MG tablet 25 mg PO BID cyanocobalamin (vitamin B-12) 500 MCG tablet 500 mcg PO DAILY furosemide 40 mg tablet 40 mg PO DAILY PRN (Reason: FLUID RETENTION) metoprolol tartrate 50 mg tablet 50 mg PO BID gabapentin 100 mg capsule 100 mg PO QHS fluticasone propionate 50 mcg/actuation spray,suspension 2 spray INTRANASAL DAILY PRN (Reason: seasonal allergies) cholecalciferol (vitamin D3) 125 mcg (5,000 unit) tablet,disintegrating 125 mcg PO QODAY rosuvastatin 5 mg tablet 5 mg PO QHS Dupixent Pen 300 mg/2 mL pen injector 300 mg subcut Q14D Rx Instructions: as a single dose loratadine [Allerclear] 10 mg tablet 10 mg PO DAILY Patient Comments: PT TAKES BOTH CLARITIN AND ZYRTEC CONSISTANTLY guaifenesin [Mucus Relief ER] 1,200 mg Tablet Extended Release 12hr 1,200 mg PO BID PRN (Reason: congestion) montelukast [Singulair] 10 mg tablet 10 mg PO QPM Qty: 30 5RF albuterol sulfate [Ventolin HFA] 90 mcg/actuation HFA aerosol inhaler 2 puff INHALATION Q4H PRN (Reason: shortness of breath or wheezing) Qty: 18 6RF losartan 25 mg tablet 25 mg PO DAILY Qty: 30 6RF albuterol sulfate 2.5 mg /3 mL (0.083 %) solution for nebulization 2.5 mg INHALATION Q4H PRN (Reason: shortness of breath or wheezing) Qty: 360 6RF cetirizine 10 mg tablet 10 mg PO DAILY Qty: 90 3RF Patient Comments: PT TAKES BOTH CLARITIN AND ZYRTEC CONSISTANTLY ipratropium-albuterol 0.5 mg-3 mg(2.5 mg base)/3 mL solution for nebulization 3 ml continuous nebulization Q6H PRN (Reason: shortness of breath or wheezing) Qty: 180 11RF Changed torsemide 20 mg tablet 20 mg PO DAILY Qty: 60 2RF Referrals / Follow Up: Chitra Scott NP-C [Primary Care Provider] - 04/21/25 11:20 am Disposition Disposition (needs filled in before D/C Order can be placed): Home, Self Care Charges/Coding Visit Charges Inpatient E&M: 09429 Disch Hosp >30min
== END 2025-04-10 15:41 | disposition home or self-care (01) | DRG 189 ==
LOC: ED 13:13 → PCU 14:02
PROVIDERS: Internal Medicine; Admitting Provider Family Medicine; Emergency Provider Emergency Medicine; PCP Nurse Practitioner Family; Visit Provider Family Medicine
DX: J96.22 Acute and chronic respiratory failure with hypercapnia (principal); I50.33 Acute on chronic diastolic (congestive) heart failure; C34.11 Malignant neoplasm of upper lobe, right bronchus or lung; E87.3 Alkalosis; J44.1 Chronic obstructive pulmonary disease with (acute) exacerbation; Z68.42 Body mass index [BMI] 45.0-49.9, adult; I11.0 Hypertensive heart disease with heart failure; F32.A Depression, unspecified; J96.21 Acute and chronic respiratory failure with hypoxia; E66.01 Morbid (severe) obesity due to excess calories; F17.210 Nicotine dependence, cigarettes, uncomplicated; G47.33 Obstructive sleep apnea (adult) (pediatric); E78.5 Hyperlipidemia, unspecified; E87.5 Hyperkalemia; J30.9 Allergic rhinitis, unspecified; F41.9 Anxiety disorder, unspecified; Z86.718 Personal history of other venous thrombosis and embolism; Z86.711 Personal history of pulmonary embolism; Z79.899 Other long term (current) drug therapy; Z79.01 Long term (current) use of anticoagulants
CPT/HCPCS: 36415; 71045; 80048; 80053; 80061; 82803; 82962; 83735; 83880; 84145; 84443; 84484; 85025; 87070; 87205; 87633; 93005; 94002; 94003; 94640; 94668; 94762; 97162; 97166; 97530; 99285; 99406; A4216; J0612; J1940